=== PATIENT | male | born 1940 | race Caucasian/White ===

== ENCOUNTER 2016-08-28 11:13 | Inpatient (IN) | payer MEDICARE ==
[2016-08-28] VITALS (8 sets, daily range): BP systolic 108–134; BP diastolic 53–68; PULSE 77–100; RESP 16–20; TEMP 97.7; O2SAT 90–98
[~2016-08-28 11:13] MED LIST: BACT400T PO; BETH25 PO; CIPR-9 PO; HYDR-3533 PO; LEVE500 PO; MELAPOW2 PO; MONT10TA2 PO; NOVO7030P2 SQ; TAMS0.4C4 PO
--- NOTE | 2016-08-28 15:22 | PD ---
HPI Chief Complaint: Respiratory Symptoms Time Seen by Provider: 15:22 Travel History International Travel<30 days: No Contact w/Intl Traveler<30days: No Traveled to known affect area: No History of Present Illness HPI 76-year-old male with a history of A. fib, CABG, CVA, diabetes, kidney transplant presents to the emergency department for evaluation of bilateral lower extremity edema, wheezing and dysuria. The patient is accompanied by his and daughter who provide much of the history as the patient is a poor historian at baseline. Patient's states that the patient has had swelling of his ankles and feet bilaterally for 3 days as well as wheezing for 3 days. States that he took Lasix 2 days ago with no improvement of symptoms. States that he has had a mild nonproductive cough recently. Denies any fever, chills, nausea, vomiting, chest pain, shortness of breath, abdominal pain. States that he has recurrent urinary tract infections as well and has been off antibiotics for about 1.5 weeks. States that he's been having frequency, urgency and decreased urinary output over the past [address] Beasley. No other complaints. PFSH Past Medical History Hx Anticoagulant Therapy: No Arthritis: Yes Asthma: No Atrial Fibrillation: Yes Autoimmune Disease: Yes (shingles in the past) Blood Disorders: No Anxiety: No Depression: No Heart Rhythm Problems: Yes Cancer: Yes (SKIN ) Cardiac Catheterization: Yes Cardiovascular Problems: Yes (afib, no coumadin hx hemmorhagic cva) High Cholesterol: No Chemotherapy: No Chest Pain: No Congestive Heart Failure: Yes COPD: No Cerebrovascular Accident: Yes (cva 2013) Diabetes: Yes Patient Takes Glucophage: No Diminished Hearing: No Endocrine: Yes Gastrointestinal Disorders: Yes (diarrhea) GERD: No Genitourinary: Yes Headaches: No Hepatitis: No Hiatal Hernia: No Hypertension: Yes (not since transplant) Immune Disorder: No Kidney Stones: No Musculoskeletal: Yes Neurologic: Yes Psychiatric: No Reproductive: No Respiratory: Yes Immunizations Current: Yes Migraines: No Myocardial Infarction: No Radiation Therapy: No Renal Failure: Yes Seizures: Yes Sickle Cell Disease: No Sleep Apnea: No Ulcer: No PNEUMOCCOCAL Vaccine (Year): 3 Past Surgical History Abdominal Surgery: No AICD: No Appendectomy: No Body Medical Devices: penile implant Cardiac Surgery: Yes (CABG) Cholecystectomy: No Coronary Artery Bypass Graft: Yes (5WAY BYPASS 94') Coronary Stent: Yes (X1 98') Ear Surgery: No Endocrine Surgery: Yes (PARATHYROIDECTOMY) Eye Surgery: Yes Genitourinary Surgery: Yes (RENAL TRANSPLANT 1998) Gynecologic Surgery: No Insulin Pump: No Joint Replacement: No Neurologic Surgery: Yes (CRAINIOTOMY OCTOBER 2013) Oral Surgery: No Pacemaker: No Thoracic Surgery: No Other Surgery: Yes (renal transplant) Social History Alcohol Use: No Tobacco Use: No Substance Use: No Allergies-Medications (Allergen,Severity, Reaction): Coded Allergies: Haldol (Verified Allergy, Severe, Confusion, 08/28/16) Trileptal (Verified Allergy, Severe, 08/28/16) Reported Meds & Prescriptions Reported Meds & Active Scripts Active Tamsulosin (Tamsulosin HCl) 0.4 Mg Cap 0.4 Mg PO HS Urecholine (Bethanechol Chloride) 25 Mg Tab 25 Mg PO TID Reported Cranberry (Cranberry (Vaccinium Macrocarpon)) Unknown Strength Tab 1 Tab PO DAILY Zofran (Ondansetron HCl) 8 Mg Tab 8 Mg PO Q6HR PRN Lasix (Furosemide) 20 Mg Tab 20 Mg PO DAILY PRN Melatonin 10 Mg Tab 10 Mg PO HS Bactrim (Sulfamethoxazole-Trimethoprim) 400-80 Mg Tab 1 Tab PO DAILY Lortab (Hydrocodone-Acetaminophen) 5-325 Mg Tab 1 Tab PO QID PRN Novolin 70-30 Inj (Insulin Human Isoph/Insulin Regular) 1,000 Unit/10 Ml Vial SQ TIDAC Sliding scale as directed Keppra (Levetiracetam) 500 Mg Tab 500 Mg PO BID Singulair (Montelukast Sodium) 10 Mg Tab 10 Mg PO HS Review of Systems Except as stated in HPI: all other systems reviewed are Neg Physical Exam Narrative GENERAL: Well-nourished and well-developed pleasant male patient in no acute distress who is nontoxic appearing. SKIN: Warm and dry. HEAD: Normocephalic and atraumatic. EYES: No injection, drainage, or hyphema noted. PERRLA. EOMI. ENT: No nasal drainage noted. Oropharynx is clear. NECK: Supple and the trachea is midline. CARDIOVASCULAR: Regular rate and rhythm. RESPIRATORY: Wheezing to bilateral lung palencia throughout. No accessory muscle use, rhonchi, or crackles. GASTROINTESTINAL: Abdomen is soft, non-tender, and nondistended. MUSCULOSKELETAL: Mild edema to ankles and feet bilaterally. No obvious deformities, swelling, cyanosis, or ecchymosis is present throughout the upper and lower extremities. Patient has full range of motion without any signs of neurovascular compromise. NEUROLOGICAL: Awake, alert, and oriented to person, place and situation. Unsure of time. Normal speech and gait. Cranial nerves are grossly intact. Data Data Last Documented VS Vital Signs Date Time Temp Pulse Resp B/P Pulse Ox O2 Delivery O2 Flow Rate FiO2 08/28/16 15:08 87 16 134/64 95 Room Air 08/28/16 11:16 97.7 Orders Complete Blood Count With Diff (08/28/16 15:19) Comprehensive Metabolic Panel (08/28/16 15:19) B-Type Natriuretic Peptide (08/28/16 15:19) Act Partial Throm Time (Ptt) (08/28/16 15:19) Prothrombin Time / Inr (Pt) (08/28/16 15:19) Magnesium (Mg) (08/28/16 15:19) Ckmb (Isoenzyme) Profile (08/28/16 15:19) Troponin I (08/28/16 15:19) Urinalysis - C+S If Indicated (08/28/16 15:19) Iv Access Insert/Monitor (08/28/16 15:19) Electrocardiogram (08/28/16 15:19) Ecg Monitoring (08/28/16 15:19) Oximetry (08/28/16 15:19) Chest, Single Ap (08/28/16 15:19) Sodium Chloride 0.9% Flush (Ns Flush) (08/28/16 15:30) Levofloxacin (Levaquin) (08/28/16 16:45) Albuterol Neb (Albuterol Neb) (08/28/16 16:45) Urine Culture (08/28/16 16:33) CKMB (08/28/16 15:37) CKMB% (08/28/16 15:37) Phosphorus (Po4) (08/28/16 16:37) Calcium Gluconate Inj (Calcium Gluconate (08/28/16 16:45) Parathyroid Hormone Intact (08/28/16 16:39) Vitamin D, 25-Hydroxy (08/28/16 16:39) Bethanechol (Urecholine) (08/29/16 09:00) Furosemide (Lasix) (08/28/16 18:15) Levetiracetam (Keppra) (08/28/16 21:00) Montelukast (Singulair) (08/28/16 21:00) Tamsulosin (Flomax) (08/28/16 21:00) (Nf) Melatonin (08/28/16 21:00) Sulfameth-Trimeth 400-80 Mg (Bactrim 400 (08/29/16 09:00) Admit Order (Ed Use Only) (08/28/16 18:04) Labs Laboratory Tests Test 08/28/16 15:37 White Blood Count 7.1 TH/MM3 Red Blood Count 5.43 MIL/MM3 Hemoglobin 14.6 GM/DL Hematocrit 45.5 % Mean Corpuscular Volume 83.9 FL Mean Corpuscular Hemoglobin 27.0 PG Mean Corpuscular Hemoglobin 32.1 % Concent Red Cell Distribution Width 15.5 % Platelet Count 118 TH/MM3 Mean Platelet Volume 9.3 FL Neutrophils (%) (Auto) 66.7 % Lymphocytes (%) (Auto) 14.2 % Monocytes (%) (Auto) 16.6 % Eosinophils (%) (Auto) 1.8 % Basophils (%) (Auto) 0.7 % Neutrophils # (Auto) 4.7 TH/MM3 Lymphocytes # (Auto) 1.0 TH/MM3 Monocytes # (Auto) 1.2 TH/MM3 Eosinophils # (Auto) 0.1 TH/MM3 Basophils # (Auto) 0.1 TH/MM3 CBC Comment DIFF FINAL Differential Comment Prothrombin Time 12.4 SEC Prothromb Time International 1.1 RATIO Ratio Activated Partial 33.9 SEC Thromboplast Time Urine Color YELLOW Urine Turbidity CLEAR Urine pH 5.5 Urine Specific [place] 1.021 Urine Protein 30 mg/dL Urine Glucose (UA) TRACE mg/dL Urine Ketones NEG mg/dL Urine Occult Blood NEG Urine Nitrite NEG Urine Bilirubin NEG Urine Urobilinogen LESS THAN 2.0 MG/DL Urine Leukocyte Esterase TRACE Urine RBC 1 /hpf Urine WBC 6 /hpf Urine Squamous Epithelial <1 /hpf Cells Microscopic Urinalysis Comment CULT NOT INDICATED Sodium Level 142 MEQ/L Potassium Level 4.2 MEQ/L Chloride Level 103 MEQ/L Carbon Dioxide Level 29.2 MEQ/L Anion Gap 10 MEQ/L Blood Urea Nitrogen 17 MG/DL Creatinine 1.21 MG/DL Estimat Glomerular Filtration 58 ML/MIN Rate Random Glucose 163 MG/DL Calcium Level 6.1 MG/DL Protein Corrected Calcium 6.4 MG/DL Phosphorus Level 4.0 MG/DL Magnesium Level 1.8 MG/DL Total Bilirubin 1.0 MG/DL Aspartate Amino Transf 18 U/L (AST/SGOT) Alanine Aminotransferase 17 U/L (ALT/SGPT) Alkaline Phosphatase 120 U/L Total Creatine Kinase 196 U/L Creatine Kinase MB 1.7 NG/ML Troponin I 0.02 NG/ML B-Type Natriuretic Peptide 205 PG/ML Total Protein 6.4 GM/DL Albumin 3.1 GM/DL 25-Hydroxy Vitamin D Total 5.6 ng/ML [facility] Medical Decision Making Medical Screen Exam Complete: Yes Emergency Medical Condition: Yes Differential Diagnosis CHF exacerbation versus pneumonia versus bronchitis versus fluid overload versus UTI Narrative Course 76-year-old male presents to the emergency department for evaluation of lower extremity swelling, wheezing and dysuria. Patient is afebrile. Initially his oxygen saturation is a little low at 92% on room air. Now 95% on room air. Otherwise vital signs within normal limits. On physical examination he does have some wheezing to bilateral lung palencia. No respiratory distress. IV access is obtained, labs were drawn and sent. Patient is placed on cardiac telemetry and oximetry monitoring. EKG shows atrial fibrillation with prolonged QT interval greater than 450. CBC is unremarkable. CMP shows a critically low potassium of 6.4. Troponin is 0.02. BNP is 205. Vitamin D is low at 5.6. Patient is given IV calcium gluconate 1 g and nebulizers. He reports great improvement of wheezing with nebulizers. He has also been given a dose of Levaquin 750 mg orally for pneumonia. Patient will be kept in observation for hypocalcemia with EKG changes. I discussed the case with my attending physician Dr. Sage who is aware of the patients history, physical examination findings, and treatment plan. Physician Communication Physician Communication I spoke with Dr. Fowler [facility] who agrees to keep the patient in observation under his service. Diagnosis Primary Impression: Hypocalcemia Additional Impression: Community acquired pneumonia Admitting Information Admitting Physician Requests: Observation Gia Yusuf Aug 28, 2016 15:22
[2016-08-28] MEDS ORDERED: SODIUM CHLORIDE 0.9% FLUSH 10 ML FLUSH IVF PRN (15:30)
[2016-08-28] MEDS ORDERED: CRAN125T PO (15:31)
[2016-08-28] MEDS ORDERED: MELA1TAB18 PO (15:31)
[2016-08-28] MEDS ORDERED: ZOFR8TAB PO (15:31)
[2016-08-28] MEDS ORDERED: FURO1TAB62 PO (15:31)
[2016-08-28 15:50] LABS: AUTOMATED NEUTROPHIL # 4.7 TH/MM3 (1.8-7.7); BASOPHIL # 0.1 TH/MM3 (0-0.2); BASOPHIL % 0.7 % (0.0-2.0); EOSINOPHIL # 0.1 TH/MM3 (0-0.4); EOSINOPHIL % 1.8 % (0.0-4.0); HEMATOCRIT 45.5 % (39.0-51.0); HEMO FLAGS DIFF FINAL; LYMPH % 14.2 % (9.0-44.0); MEAN CELL VOLUME 83.9 FL (80.0-100.0); MEAN CORPUSCULAR HGB CONC 32.1 % (32.0-36.0); MONO % 16.6 % (0.0-8.0); NEUT % 66.7 % (16.0-70.0); PLATELET COUNT 118 TH/MM3 (150-450); RED BLOOD COUNT 5.43 MIL/MM3 (4.50-5.90); RED CELL DISTRIBUTION WIDTH 15.5 % (11.6-17.2); WHITE BLOOD COUNT 7.1 TH/MM3 (4.0-11.0)
[2016-08-28 15:57] LABS: BLOOD, URINE NEG (NEG); COMMENT (UR) CULT NOT INDICATED; CULTURE IF INDICATED CULT NOT INDICATED; GLUCOSE,URINE TRACE mg/dL (NEG); KETONE, URINE NEG (NEG); NITRITE,URINE NEG (NEG); PH, URINE 5.5 (5.0-8.5); SQUAMOUS EPITHELIAL CELL URINE <1 /hpf (0-5); URINE COLOR YELLOW (YELLW/STRAW)
[2016-08-28 16:14] LABS: APTT (PATIENT) 33.9 SEC (24.3-30.1); INTERNATIONAL NORMALIZED RATIO 1.1 RATIO; PROTHROMBIN TIME - PATIENT 12.4 SEC (9.8-11.6)
[2016-08-28 16:23] LABS: ALKALINE PHOSPHATASE 120 U/L (45-117); ALT (GPT) 17 U/L (12-78); ANION GAP 10 MEQ/L (5-15); AST (GOT) 18 U/L (15-37); BICARBONATE 29.2 MEQ/L (21.0-32.0); BLOOD UREA NITROGEN 17 MG/DL (7-18); CHLORIDE 103 MEQ/L (98-107); CREATINE KINASE 196 U/L (39-308); GLOMERULAR FILTRATION RATE 58 ML/MIN (>89); MAGNESIUM 1.8 MG/DL (1.5-2.5); POTASSIUM 4.2 MEQ/L (3.5-5.1); SODIUM (NA) 142 MEQ/L (136-145)
--- NOTE | 2016-08-28 16:29 | RADRPT ---
EXAM DATE/TIME: 08/28/2016 15:22 [place] COMPARISON: CHEST SINGLE AP, May 30, 2016, 15:43. INDICATIONS : Shortness of breath, congestion, wheezing, increased confusion, lower extremity swelling. MEDICAL HISTORY : Stroke. Diabetes mellitus type II. Atrial Fibrillation, Meningioma SURGICAL HISTORY : CABG. Parathyroid, Craniotomy, Kidney Transplant ENCOUNTER: Initial ACUITY: 3 days PAIN SCORE: 0/10 LOCATION: Bilateral chest FINDINGS: The cardiac silhouette is normal in transverse diameter. Median sternotomy wires are present. There i s left lower lobe atelectasis versus pneumonia. The right lung is free of acute parenchymal opacity. CONCLUSION: 1. Cardiomegaly. 2. Left lower lobe atelectasis versus pneumonia. Trip Sepulveda MD on August 28, 2016 at 16:26 Board Certified Radiologist. This report was verified electronically.
[2016-08-28 16:34] LABS: CALCIUM-PROTEIN CORRECTED 6.4 MG/DL (8.5-10.1)
[2016-08-28] MEDS ORDERED: LEVOFLOXACIN 750 MG TAB PO ONE (16:45)
[2016-08-28] MEDS ORDERED: CALCIUM GLUCONATE INJ 1 GM in DEXTROSE 5% IN WATER 100ML INJ 100 ML IV ONE ×2 (16:45)
[2016-08-28] MEDS: RESP: ALBUTEROL 2.5 MG/3 ML NEB (SCH) INH ×2 (16:48→16:49)
[2016-08-28 17:18] LABS: CKMB 1.7 NG/ML (0.5-3.6)
--- NOTE | 2016-08-28 17:58 | PD ---
Data Data Last Documented VS Vital Signs Date Time Temp Pulse Resp B/P Pulse Ox O2 Delivery O2 Flow Rate FiO2 08/28/16 15:08 87 16 134/64 95 Room Air 08/28/16 11:16 97.7 Orders Complete Blood Count With Diff (08/28/16 15:19) Comprehensive Metabolic Panel (08/28/16 15:19) B-Type Natriuretic Peptide (08/28/16 15:19) Act Partial Throm Time (Ptt) (08/28/16 15:19) Prothrombin Time / Inr (Pt) (08/28/16 15:19) Magnesium (Mg) (08/28/16 15:19) Ckmb (Isoenzyme) Profile (08/28/16 15:19) Troponin I (08/28/16 15:19) Urinalysis - C+S If Indicated (08/28/16 15:19) Iv Access Insert/Monitor (08/28/16 15:19) Electrocardiogram (08/28/16 15:19) Ecg Monitoring (08/28/16 15:19) Oximetry (08/28/16 15:19) Chest, Single Ap (08/28/16 15:19) Sodium Chloride 0.9% Flush (Ns Flush) (08/28/16 15:30) Levofloxacin (Levaquin) (08/28/16 16:45) Albuterol Neb (Albuterol Neb) (08/28/16 16:45) Urine Culture (08/28/16 16:33) CKMB (08/28/16 15:37) CKMB% (08/28/16 15:37) Phosphorus (Po4) (08/28/16 16:37) Calcium Gluconate Inj (Calcium Gluconate (08/28/16 16:45) Parathyroid Hormone Intact (08/28/16 16:39) Vitamin D, 25-Hydroxy (08/28/16 16:39) Labs Laboratory Tests Test 08/28/16 15:37 White Blood Count 7.1 TH/MM3 Red Blood Count 5.43 MIL/MM3 Hemoglobin 14.6 GM/DL Hematocrit 45.5 % Mean Corpuscular Volume 83.9 FL Mean Corpuscular Hemoglobin 27.0 PG Mean Corpuscular Hemoglobin 32.1 % Concent Red Cell Distribution Width 15.5 % Platelet Count 118 TH/MM3 Mean Platelet Volume 9.3 FL Neutrophils (%) (Auto) 66.7 % Lymphocytes (%) (Auto) 14.2 % Monocytes (%) (Auto) 16.6 % Eosinophils (%) (Auto) 1.8 % Basophils (%) (Auto) 0.7 % Neutrophils # (Auto) 4.7 TH/MM3 Lymphocytes # (Auto) 1.0 TH/MM3 Monocytes # (Auto) 1.2 TH/MM3 Eosinophils # (Auto) 0.1 TH/MM3 Basophils # (Auto) 0.1 TH/MM3 CBC Comment DIFF FINAL Differential Comment Prothrombin Time 12.4 SEC Prothromb Time International 1.1 RATIO Ratio Activated Partial 33.9 SEC Thromboplast Time Urine Color YELLOW Urine Turbidity CLEAR Urine pH 5.5 Urine Specific [place] 1.021 Urine Protein 30 mg/dL Urine Glucose (UA) TRACE mg/dL Urine Ketones NEG mg/dL Urine Occult Blood NEG Urine Nitrite NEG Urine Bilirubin NEG Urine Urobilinogen LESS THAN 2.0 MG/DL Urine Leukocyte Esterase TRACE Urine RBC 1 /hpf Urine WBC 6 /hpf Urine Squamous Epithelial <1 /hpf Cells Microscopic Urinalysis Comment CULT NOT INDICATED Sodium Level 142 MEQ/L Potassium Level 4.2 MEQ/L Chloride Level 103 MEQ/L Carbon Dioxide Level 29.2 MEQ/L Anion Gap 10 MEQ/L Blood Urea Nitrogen 17 MG/DL Creatinine 1.21 MG/DL Estimat Glomerular Filtration 58 ML/MIN Rate Random Glucose 163 MG/DL Calcium Level 6.1 MG/DL Protein Corrected Calcium 6.4 MG/DL Phosphorus Level 4.0 MG/DL Magnesium Level 1.8 MG/DL Total Bilirubin 1.0 MG/DL Aspartate Amino Transf 18 U/L (AST/SGOT) Alanine Aminotransferase 17 U/L (ALT/SGPT) Alkaline Phosphatase 120 U/L Total Creatine Kinase 196 U/L Creatine Kinase MB 1.7 NG/ML Troponin I 0.02 NG/ML B-Type Natriuretic Peptide 205 PG/ML Total Protein 6.4 GM/DL Albumin 3.1 GM/DL 25-Hydroxy Vitamin D Total 5.6 ng/ML MDM Supervised Visit with KHADIJAH: Yes Narrative Course The history, exam, and medical decision-making in the associated mid-level provider note were completed with my assistance. I reviewed and agree with the findings presented. I attest that I had a [id number] encounter with the patient on the same day, and personally performed and documented my assessment and findings in the medical record. *My assessment and Findings: Well 76 year-old man presents emergency Department with wheezing, leg swelling, no weakness and confusion, and UTI symptoms. He's been treated for UTI recently. The leg swelling and wheezing skin over the past several days. They tried some Lasix but essentially the Lasix also causes increased confusion at times. Family states he needs a Lasix about once a year or so. He otherwise looks well. X-ray suggestive of some left lower lobe atelectasis or pneumonia could be explaining his wheezing. No fevers or chills. No white count. He also found a critically low calcium. QTC is prolonged greater than 450 on his EKG. Given the calcium is always, he was given IV calcium, will be admitted for observation. Efrain Sage MD Aug 28, 2016 17:58
[2016-08-28] MEDS: SODIUM CHLOR 0.9% 1000 ML INJ 1,000 ML IV SCH (18:07)
[2016-08-28] MEDS ORDERED: ONDANSETRON HCL 4 MG/2 ML VIAL IVP PRN (18:15)
[2016-08-28] MEDS ORDERED: METOCLOPRAMIDE HCL 10 MG/2 ML VIAL IV PUSH PRN (18:15)
[2016-08-28] MEDS ORDERED: ACETAMINOPHEN 325 MG TAB PO PRN (18:15)
[2016-08-28] MEDS ORDERED: NALOXONE HCL 0.4 MG/ML AMP IV PRN (18:15)
[2016-08-28] MEDS ORDERED: SODIUM CHLORIDE 0.9% FLUSH 10 ML FLUSH IV FLUSH PRN (18:15)
[2016-08-28] MEDS ORDERED: FUROSEMIDE 20 MG TAB PO PRN (18:15)
[2016-08-28] MEDS ORDERED: BISACODYL 10 MG SUPP PR PRN (18:15)
--- NOTE | 2016-08-28 18:45 | HHI.HP ---
HPI Service [facility] Primary Care Physician Luis Angel Beasley M.D. Admission Diagnosis Hypocalcemia, Pneumonia Diagnoses: Chief Complaint: Shortness of breath, wheezing, Swollen legs Travel History International Travel<30 Days: No Contact w/Intl Traveler <30 Da: No Traveled to Known Affected Are: No History of Present Illness Pt. is a pleasant 76 yo white male with PMHX of Afib, CVA, DM2, Kidney transplant, recurrent UTIs who came in to the hospital as advised by his assurance analyst secondary to wheezing and SOB. Patient states that he was started to have shortness of breath with wheezing about 3 days ago, with cough but it is nonproductive. He also started noticing to have increased edema bilateral lower extremities all the way to his waist. He started taking his Lasix. Patient also complains of increasing urge to urinate but unable to urinate, burning sensation after dribbling. Family members, also reported they started to notice increase in blood glucose whenever they checked the patient. He shortness of breath and wheezing has not improved. He went to his assurance analyst to have adjustments with his insulin secondary to uncontrolled blood sugars. However, family states the assurance analyst told him to go to the hospital to be evaluated because he appears to be with increased shortness of breath and wheezing. Patient and family members also reported that he has been having recurrent urinary tract infections. He has been placed by PCP Dr. Vang on prophylactic Bactrim daily since about 2-3 years ago. However in the last 6 months due to urinary tract infection has been recurrent that they have to add either Cipro, Macrobid, Ceftin with his Bactrim. After being off of second antibiotic, patient would start to complain of dysuria, urgency. He is due to be seen by his urologist Dr. Lee. Otherwise, denies pain and discomfort. Denies SOB/ dyspnea. Denies chest pain, palpitations, headaches, dizziness. Denies fevers, chills, n/v/d. Chest x-ray showed 1. Cardiomegaly. 2. Left lower lobe atelectasis versus pneumonia. Labs reviewed. CBC unremarkable except low platelet 118, CMP showed estimated GFR 58, random glucose 163, low calcium 6.1, corrected calcium 6.4, albumin 3.1. BNP 205. Vitamin D5.6 PTH intact 31.8 UA trace leukoesterase Patient received levo floxacillin IV, albuterol treatment, calcium gluconate, Review of Systems Except as stated in HPI: all other systems reviewed are Neg Past Family Social History Past Medical History A. fib not on any anticoagulant secondary to hemorrhagic stroke in 2012 CVA 2012 DM 2 Kidney transplant Skin cancer Past Surgical History Cardiac stents CABG Kidney transplant Parathyroidectomy Craniotomy Penile implant Eye surgery Reported Medications Tamsulosin (Tamsulosin HCl) 0.4 Mg Cap 0.4 Mg PO HS Urecholine (Bethanechol Chloride) 25 Mg Tab 25 Mg PO TID Reported Cranberry (Cranberry (Vaccinium Macrocarpon)) Unknown Strength Tab 1 Tab PO DAILY Zofran (Ondansetron HCl) 8 Mg Tab 8 Mg PO Q6HR PRN Lasix (Furosemide) 20 Mg Tab 20 Mg PO DAILY PRN Melatonin 10 Mg Tab 10 Mg PO HS Bactrim (Sulfamethoxazole-Trimethoprim) 400-80 Mg Tab 1 Tab PO DAILY Lortab (Hydrocodone-Acetaminophen) 5-325 Mg Tab 1 Tab PO QID PRN Novolin 70-30 Inj (Insulin Human Isoph/Insulin Regular) 1,000 Unit/10 Ml Vial SQ TIDAC Sliding scale as directed Keppra (Levetiracetam) 500 Mg Tab 500 Mg PO BID Singulair (Montelukast Sodium) 10 Mg Tab 10 Mg PO HS Allergies: Coded Allergies: Haldol (Verified Allergy, Severe, Confusion, 08/28/16) Trileptal (Verified Allergy, Severe, 08/28/16) Active Ordered Medications Current Medications Medications (Trade) Dose Ordered Sig/Tj Route Start Time Stop Time Status Last Admin (Urecholine) 25 mg TID PO 08/29/16 09:00 (Lasix) 20 mg DAILY PRN PO 08/28/16 18:15 (Keppra) 500 mg BID PO 08/28/16 21:00 (Singulair) 10 mg HS PO 08/28/16 21:00 (Flomax) 0.4 mg HS PO 08/28/16 21:00 (Melatonin) 10 mg HS PO 08/28/16 21:00 Trimethoprim/ Sulfamethoxazole 1 tab 1 tab DAILY PO 08/29/16 09:00 Ceftriaxone Sodium 1000 mg/ Sodium Chloride 100 ml @ 200 mls/hr Q24H IV 08/29/16 09:00 Azithromycin 500 mg/Sodium Chloride 250 ml @ 250 mls/hr Q24H IV 08/28/16 20:00 (NS 1000 ml Inj) 1,000 ml @ 83 mls/hr Q12H3M IV 08/28/16 18:07 (NS Flush) 2 ml UNSCH PRN IV FLUSH 08/28/16 18:15 (NS Flush) 2 ml BID IV FLUSH 08/28/16 21:00 (Tylenol) 650 mg Q4H PRN PO 08/28/16 18:15 (Zofran Inj) 4 mg Q6H PRN IVP 08/28/16 18:15 (Reglan Inj) 5 mg Q6H PRN IV PUSH 08/28/16 18:15 (Dulcolax Supp) 10 mg DAILY PRN CO 08/28/16 18:15 (Colace) 100 mg Q12H PO 08/28/16 21:00 (Narcan Inj) 0.4 mg UNSCH PRN IV 08/28/16 18:15 Family History Grand mother with diabetes Mother has hypertension Father has no significant medical history Social History Denies alcohol use Denies tobacco use Denies illicit drug use Physical Exam Vital Signs Vital Signs Date Time Temp Pulse Resp B/P Pulse Ox O2 Delivery O2 Flow Rate FiO2 08/28/16 15:08 87 16 134/64 95 Room Air 08/28/16 11:16 97.7 77 16 131/68 92 Room Air Physical Exam GENERAL: This is a pleasant, well-nourished, well-developed patient, in no apparent distress. SKIN: No ecchymoses or lesions. Warm and dry. Multiple abdominal rash dry. HEAD: Atraumatic. Normocephalic. No temporal or scalp tenderness. EYES: Pupils equal round and reactive. Extraocular motions intact. No scleral icterus. No injection or drainage. ENT: Nose without bleeding. Throat without erythema. Uvula midline. Airway patent. NECK: Trachea midline. No JVD or lymphadenopathy. Supple. CARDIOVASCULAR: Irregular rate and rhythm, gallops, or rubs. RESPIRATORY: Expiratory wheezes all throughout. Moderate air entry. GASTROINTESTINAL: Abdomen soft, non-tender, nondistended. Bowel sounds active 4. MUSCULOSKELETAL: Extremities without clubbing, cyanosis, bilateral lower extremity +2. Dependent edema +2 flank, +2 thighs NEUROLOGICAL: Awake and alert. Motor and sensory grossly within normal limits. Normal speech. Laboratory Laboratory Tests Test 08/28/16 08/28/16 15:37 17:00 White Blood Count 7.1 Red Blood Count 5.43 Hemoglobin 14.6 Hematocrit 45.5 Mean Corpuscular Volume 83.9 Mean Corpuscular Hemoglobin 27.0 Mean Corpuscular Hemoglobin 32.1 Concent Red Cell Distribution Width 15.5 Platelet Count 118 Mean Platelet Volume 9.3 Neutrophils (%) (Auto) 66.7 Lymphocytes (%) (Auto) 14.2 Monocytes (%) (Auto) 16.6 Eosinophils (%) (Auto) 1.8 Basophils (%) (Auto) 0.7 Neutrophils # (Auto) 4.7 Lymphocytes # (Auto) 1.0 Monocytes # (Auto) 1.2 Eosinophils # (Auto) 0.1 Basophils # (Auto) 0.1 CBC Comment DIFF FINAL Differential Comment Prothrombin Time 12.4 Prothromb Time International 1.1 Ratio Activated Partial 33.9 Thromboplast Time Urine Color YELLOW Urine Turbidity CLEAR Urine pH 5.5 Urine Specific [place] 1.021 Urine Protein 30 Urine Glucose (UA) TRACE Urine Ketones NEG Urine Occult Blood NEG Urine Nitrite NEG Urine Bilirubin NEG Urine Urobilinogen LESS THAN 2.0 Urine Leukocyte Esterase TRACE Urine RBC 1 Urine WBC 6 Urine Squamous Epithelial <1 Cells Microscopic Urinalysis Comment CULT NOT INDICATED Sodium Level 142 Potassium Level 4.2 Chloride Level 103 Carbon Dioxide Level 29.2 Anion Gap 10 Blood Urea Nitrogen 17 Creatinine 1.21 Estimat Glomerular Filtration 58 Rate Random Glucose 163 Calcium Level 6.1 Protein Corrected Calcium 6.4 Phosphorus Level 4.0 Magnesium Level 1.8 Total Bilirubin 1.0 Aspartate Amino Transf 18 (AST/SGOT) Alanine Aminotransferase 17 (ALT/SGPT) Alkaline Phosphatase 120 Total Creatine Kinase 196 Creatine Kinase MB 1.7 Troponin I 0.02 B-Type Natriuretic Peptide 205 Total Protein 6.4 Albumin 3.1 25-Hydroxy Vitamin D Total 5.6 Parathyroid Hormone (Intact) 31.8 Date/Time Procedure Status Source Growth 08/28/16 15:37 Urine Culture Received Urine Clean Catch Pending Result Diagram: 08/28/16 1537 08/28/16 1537 Imaging Last Impressions Chest X-Ray 08/28/16 1519 Signed Impressions: Service Date/Time: Sunday, August 28, 2016 15:22 - CONCLUSION: 1. Cardiomegaly. 2. Left lower lobe atelectasis versus pneumonia. Trip Sepulveda MD Assessment and Plan Problem List: (1) Seizures ICD Code: R56.9 Status: Chronic (2) Hx of kidney transplant ICD Code: Z94.0 Status: Chronic (3) DEJA (acute kidney injury) ICD Code: N17.9 Status: Acute (4) DM2 (diabetes mellitus, type 2) ICD Code: E11.9 Status: Chronic (5) Recurrent UTI ICD Code: N39.0 Status: Acute (6) Pneumonia ICD Code: J18.9 Status: Acute (7) A-fib ICD Code: I48.91 Status: Chronic (8) Community acquired pneumonia ICD Code: J18.9 Status: Acute Assessment and Plan Pt. is a pleasant 76 yo white male with PMHX of Afib, CVA, DM2, Kidney transplant, recurrent UTIs who came in to the hospital as advised by his assurance analyst secondary to wheezing and SOB. Patient states that he was started to have shortness of breath with wheezing about 3 days ago, with cough but it is nonproductive. He also started noticing to have increased edema bilateral lower extremities all the way to his waist. He started taking his Lasix. Patient also complains of increasing urge to urinate, burning sensation after urination. Reports recurrent urinary tract infection, he was on prophylactic Bactrim daily for 2-3 years, last 6 months PCP needed to add Cipro , Macrobid, Ceftin with his Bactrim for recurrent urinary tract infection. Community acquired pneumonia, possible S. pneumonia - Was given Levaquin IV. We'll switch over to ceftriaxone 1 g every 24, azithromycin 500 mg every 24 - DuoNeb's every 6 hours scheduled, and when necessary - Monitor respiratory status Recurrent urinary tract infection, acute on chronic - Continue prophylactic Bactrim daily - UA trace leukoesterase - On ceftriaxone IV - We'll consult urology Chronic kidney disease Poor urine output - History of kidney transplant - Creatinine 1.21, EGFR 58 - Monitor BMP - US kidney and bladder Bilateral lower extremity edema, dependent edema - Bilateral lower extremity ultrasound - Monitor BMP A. fib - not on any anticoagulants patient has hemorrhagic bleed in 2012 and has not been restarted on any anticoagulation - Monitor heart rate Hypocalcemia - History of parathyroidectomy - Calcium gluconate given - Patient on calcium supplements at home 1200 mg daily, restart supplement. - Monitor calcium levels DM 2 - Home medications 7030 twice a day sliding scale. Will switch over to NovoLog sliding scale for now - Will add Levemir if necessary - Check hemoglobin A1c - Monitor for hypo-glycemia. As per family members, patient doesn't do well with blood glucose less than 200 CVA, hemorrhagic bleed, craniotomy Seizure prophylaxis - Keppra 500 mg twice a day - Seizure precaution DVT prop Written by Mami Paez, on behalf of Dr. Reddy on 08/28/16 at 19:19. Patient seen in the presence of Miss Paez also discussed with patient, his and his daughter, agree with management Code Status Full code Discussed Condition With Patient, family members, nursing, ED attending Physician Certification 2 Midnight Certification Type: Admission for Inpatient Services Order for Inpatient Services The services are ordered in accordance with Medicare regulations or non- Medicare payer requirements, as applicable. In the case of services not specified as inpatient-only, they are appropriately provided as inpatient services in accordance with the 2-midnight benchmark. Estimated LOS (days): 2 days is the estimated time the patient will need to remain in the hospital, assuming treatment plan goals are met and no additional complications. Post-Hospital Plan: Not yet determined Mami Salmeron Aug 28, 2016 18:45 Mateo Ridley MD Aug 29, 2016 07:42
[2016-08-28 19:29] LABS: FREE T4 1.14 NG/DL (0.76-1.46); LDL CHOLESTEROL 89 MG/DL (0-99)
[2016-08-28] MEDS: RESP: ALBUTEROL 2.5 MG/IPRATROPIUM 0.5 MG NEB (SCH) NEB (19:43)
[2016-08-28] MEDS ORDERED: RESP: ALBUTEROL 2.5 MG/IPRATROPIUM 0.5 MG NEB (PRN) NEB (19:45)
[2016-08-28] MEDS: AZITHROMYCIN INJ 500 MG in SODIUM CHLOR 0.9% 250 ML INJ 250 ML IV SCH (20:38)
[2016-08-28] MEDS: TAMSULOSIN HCL 0.4 MG CAP PO SCH (21:00)
[2016-08-28] MEDS: SODIUM CHLORIDE 0.9% FLUSH 10 ML FLUSH IV FLUSH SCH (21:00)
[2016-08-28] MEDS: MONTELUKAST SODIUM 10 MG TAB PO SCH (21:00)
[2016-08-28] MEDS: DOCUSATE SODIUM 100 MG CAP PO SCH (21:00)
--- NOTE | 2016-08-28 21:10 | RADRPT ---
EXAM DATE/TIME: 08/28/2016 20:03 [facility] COMPARISON: No previous studies available for comparison. INDICATIONS : Bilateral leg edema. MEDICAL HISTORY : Congestive heart failure. Osteoarthritis. Osteoporosis. CAD. Bilateral eye neuropathy. CVA. Seizures. Afib. Renal disease and failure. UTI. HTN. Gout. Diabetes. Jaundice. Shingles. Basal cell carcinoma, head. Hay fever. SURGICAL HISTORY : Craniotomy.CABG Coronary artery stent.Bilateral cataract extraction. Cardiac cath. Penile implant. Re nal transplant RLQ. Parathyroidectomy. Blood transfusions. Excisioin skin lesion, head. ENCOUNTER: Initial ACUITY: 1 week PAIN SCORE: 0/10 LOCATION: Bilateral leg. TECHNIQUE: Venous ultrasound of the left and right leg was performed from the inguinal ligament to the proximal calf. Real-time, color Doppler and spectral tracing, compression and augmentation techniques were us ed. FINDINGS: RIGHT LEG: There is normal compressibility of the deep venous system from the inguinal region to the proximal ca lf. No echogenic clot is seen in the lumen of the common femoral, femoral, popliteal, and posterior tibial veins. There is a normal response of the venous system to proximal and distal augmentation an d respiration. LEFT LEG: There is normal compressibility of the deep venous system from the inguinal region to the proximal ca lf. No echogenic clot is seen in the lumen of the common femoral, femoral, popliteal, and posterior tibial veins. There is a normal response of the venous system to proximal and distal augmentation an d respiration. CONCLUSION: No evidence of deep venous thrombosis within the lower extremities. Dario Downs MD on August 28, 2016 at 21:07 Board Certified Radiologist. This report was verified electronically.
--- NOTE | 2016-08-28 21:51 | RADRPT ---
EXAM DATE/TIME: 08/28/2016 19:43 [facility] COMPARISON: No previous studies available for comparison. INDICATIONS : Flank pain. MEDICAL HISTORY : Congestive heart failure. Osteoporosis. Osteoarthritis. CAD. Bilateral eye neuropathy. CVA. Seizures. Afib. Renal disease and failure. UTI. HTN. Gout. Diabetes. Jaundice. Shingles. Basal cell carcinoma, head. Hay fever. SURGICAL HISTORY : Craniotomy. CABG. Coronary artery stent. Bilateral cataract extraction. Cardiac cath. Penile implant. Renal transplant RLQ. Parathyroidectomy. Blood transfusions. Excision skin lesion, head. ENCOUNTER: Initial ACUITY: 1 day PAIN SCORE: 4/10 LOCATION: Bilateral flank MEASUREMENTS: RIGHT KIDNEY: 5.8 x 2.6 x 3.1 cm LEFT KIDNEY: 9.7 x 4.2 x 5.9 cm FINDINGS: The patient's [place] kidneys are small and increased in echogenicity. The right kidney is significan tly smaller than the left. The right lower quadrant transplanted kidney is normal in size and measur es 11.2 x 5.9 x 5.8 cm. There is no hydronephrosis or mass involving the transplanted kidney. No pe ri transplant fluid collection is noted. No stone is noted. The urinary bladder is unremarkable. CONCLUSION: 1. Right lower quadrant transplanted kidney is unremarkable. 2. Patient's [place] kidneys are small and echogenic consistent with renal failure. 3. Unremarkable urinary bladder. Dario Downs MD on August 28, 2016 at 21:44 Board Certified Radiologist. This report was verified electronically.
[2016-08-28] MEDS: MELATONIN 5 MG TAB PO SCH (22:10)
[2016-08-28] MEDS: levETIRAcetam 500 MG TAB PO SCH (22:11)
[2016-08-28 22:15] LABS: HEMOGLOBIN A1b 0.8 %; HEMOGLOBIN Ao 81.2 %; HEMOGLOBIN F 1.2 %; HEMOGLOBIN LA1C 2.3 %; HEMOGLOBIN P3 4.5 %
--- NOTE | 2016-08-28 22:27 | EKG ---
Date Performed: 08/28/2016 Time Performed: 16:27:06 PTAGE: 76 years EKG: ATRIAL FIBRILLATION MODERATE INTRAVENTRICULAR CONDUCTION DELAY ABNORMAL ECG PREVIOUS TRACING : 05/30/2016 15.04 Compared to prior tracing no significant change DOCTOR: Lelo Amaral Interpretating Date/Time 08/28/2016 22:25:33
[2016-08-29 00:25] VITALS: O2SAT 97
[2016-08-29 04:45] VITALS: BP 141/60; PULSE 79; RESP 20; TEMP 98.1; O2SAT 93
[2016-08-29] MEDS: SODIUM CHLOR 0.9% 1000 ML INJ 1,000 ML IV SCH ×2 (06:10→11:09)
[2016-08-29 06:19] LABS: AUTOMATED NEUTROPHIL # 3.6 TH/MM3 (1.8-7.7); BASOPHIL # 0.1 TH/MM3 (0-0.2); BASOPHIL % 1.1 % (0.0-2.0); EOSINOPHIL % 0.8 % (0.0-4.0); HEMATOCRIT 40.9 % (39.0-51.0); HEMO FLAGS DIFF FINAL; LYMPH % 13.4 % (9.0-44.0); LYMPHOCYTE # 0.7 TH/MM3 (1.0-4.8); MEAN CELL VOLUME 84.1 FL (80.0-100.0); MEAN CORPUSCULAR HEMOGLOBIN 27.1 PG (27.0-34.0); MEAN CORPUSCULAR HGB CONC 32.3 % (32.0-36.0); MONO % 16.2 % (0.0-8.0); NEUT % 68.5 % (16.0-70.0); PLATELET COUNT 104 TH/MM3 (150-450); RED BLOOD COUNT 4.87 MIL/MM3 (4.50-5.90); RED CELL DISTRIBUTION WIDTH 15.2 % (11.6-17.2); WHITE BLOOD COUNT 5.3 TH/MM3 (4.0-11.0)
[2016-08-29 06:20] LABS: INTERNATIONAL NORMALIZED RATIO 1.2 RATIO; PROTHROMBIN TIME - PATIENT 13.5 SEC (9.8-11.6)
[2016-08-29 06:43] LABS: BICARBONATE 28.6 MEQ/L (21.0-32.0); INDIRECT BILIRUBIN 0.6 MG/DL (0.0-0.8); POTASSIUM 4.7 MEQ/L (3.5-5.1); TOTAL BILIRUBIN ADULT 0.9 MG/DL (0.2-1.0)
[2016-08-29 06:51] LABS: CALCIUM-PROTEIN CORRECTED 6.9 MG/DL (8.5-10.1)
[2016-08-29] MEDS: RESP: ALBUTEROL 2.5 MG/IPRATROPIUM 0.5 MG NEB (SCH) NEB ×3 (07:29→21:41)
[2016-08-29 07:33] VITALS: O2SAT 97
[2016-08-29 07:52] VITALS: BP 115/64; PULSE 91; RESP 17; TEMP 97.6; O2SAT 92
[2016-08-29] MEDS: DOCUSATE SODIUM 100 MG CAP PO SCH ×2 (09:00→20:41)
[2016-08-29] MEDS: SODIUM CHLORIDE 0.9% FLUSH 10 ML FLUSH IV FLUSH SCH ×2 (09:00→20:42)
[2016-08-29] MEDS: SULFAMETHOXAZOLE-TRIMETHOPRIM 400-80 MG TAB PO SCH (11:06)
[2016-08-29] MEDS: levETIRAcetam 500 MG TAB PO SCH ×2 (11:06→20:41)
[2016-08-29] MEDS: BETHANECHOL CHL 25 MG TAB PO SCH ×3 (11:06→18:29)
[2016-08-29] MEDS: cefTRIAXone INJ 1,000 MG in SODIUM CHLORIDE 0.9% INJ 100 ML IV SCH (11:08)
--- NOTE | 2016-08-29 11:51 | HHI.PR ---
Subjective Remarks Pt. is a pleasant 76 yo white male with PMHX of Afib, CVA, DM2, Kidney transplant, recurrent UTIs who came in to the hospital as advised by his linoleum floor layer secondary to wheezing and SOB. Patient states that he was started to have shortness of breath with wheezing about 3 days ago, with cough but it is nonproductive. He also started noticing to have increased edema bilateral lower extremities all the way to his waist. He started taking his Lasix. Patient also complains of increasing urge to urinate but unable to urinate, burning sensation after dribbling. Family members, also reported they started to notice increase in blood glucose whenever they checked the patient. He shortness of breath and wheezing has not improved. He went to his linoleum floor layer to have adjustments with his insulin secondary to uncontrolled blood sugars. However, family states the linoleum floor layer told him to go to the hospital to be evaluated because he appears to be with increased shortness of breath and wheezing. Patient and family members also reported that he has been having recurrent urinary tract infections. He has been placed by PCP Dr. Vang on prophylactic Bactrim daily since about 2-3 years ago. However in the last 6 months due to urinary tract infection has been recurrent that they have to add either Cipro, Macrobid, Ceftin with his Bactrim. After being off of second antibiotic, patient would start to complain of dysuria, urgency. He is due to be seen by his urologist Dr. Lee. Otherwise, denies pain and discomfort. Denies SOB/ dyspnea. Denies chest pain, palpitations, headaches, dizziness. Denies fevers, chills, n/v/d. Chest x-ray showed 1. Cardiomegaly. 2. Left lower lobe atelectasis versus pneumonia. Labs reviewed. CBC unremarkable except low platelet 118, CMP showed estimated GFR 58, random glucose 163, low calcium 6.1, corrected calcium 6.4, albumin 3.1. BNP 205. Vitamin D5.6 PTH intact 31.8 UA trace leukocyte esterase Seen in the room in the presence of nurse Miss Clements and with his in the room, no new issues, he is sitting continue with swollen legs 2+, has PAD, may add low dose of Lasix but was discussed with patient and his in the room about the need to stop using Salt with his food. Objective Vital Signs Date Time Temp Pulse Resp B/P Pulse Ox O2 Delivery O2 Flow Rate FiO2 08/29/16 07:52 97.6 91 17 115/64 92 08/29/16 07:33 97 21 08/29/16 04:45 98.1 79 20 141/60 93 08/29/16 00:25 97 08/28/16 23:43 97.7 87 20 110/62 90 08/28/16 22:59 95 Nasal Cannula 2.00 08/28/16 20:40 84 20 132/62 95 08/28/16 18:00 100 20 114/60 98 08/28/16 17:00 98 20 108/56 92 Room Air 08/28/16 16:00 96 20 109/53 93 Room Air 08/28/16 15:08 87 16 134/64 95 Room Air I/O 08/28/16 08/28/16 08/28/16 08/29/16 08/29/16 08/29/16 07:00 15:00 23:00 07:00 15:00 23:00 Output Total 300 ml 275 ml Balance -300 ml -275 ml Output Urine Total 300 ml 275 ml # Voids 1 Result Diagram: 08/29/16 0535 08/29/16 0535 Imaging Last Impressions Chest X-Ray 08/28/16 1519 Signed Impressions: Service Date/Time: Sunday, August 28, 2016 15:22 - CONCLUSION: 1. Cardiomegaly. 2. Left lower lobe atelectasis versus pneumonia. Trip Sepulveda MD Renal Ultrasound 08/28/16 0000 Signed Impressions: Service Date/Time: Sunday, August 28, 2016 19:43 - CONCLUSION: 1. Right lower quadrant transplanted kidney is unremarkable. 2. Patient's [place] kidneys are small and echogenic consistent with renal failure. 3. Unremarkable urinary bladder. Dario Downs MD Lower Extremity Ultrasound 08/28/16 0000 Signed Impressions: Service Date/Time: Sunday, August 28, 2016 20:03 - CONCLUSION: No evidence of deep venous thrombosis within the lower extremities. Dario Downs MD Procedures No procedures performed. Other Results Laboratory Tests Test 08/28/16 08/28/16 08/29/16 15:37 17:00 05:35 Activated Partial 33.9 SEC Thromboplast Time Urine Color YELLOW Urine Turbidity CLEAR Urine pH 5.5 Urine Specific [place] 1.021 Urine Protein 30 mg/dL Urine Glucose (UA) TRACE mg/dL Urine Ketones NEG mg/dL Urine Occult Blood NEG Urine Nitrite NEG Urine Bilirubin NEG Urine Urobilinogen LESS THAN 2.0 MG/DL Urine Leukocyte Esterase TRACE Urine RBC 1 /hpf Urine WBC 6 /hpf Urine Squamous Epithelial <1 /hpf Cells Microscopic Urinalysis Comment CULT NOT INDICATED Hemoglobin A1c 8.8 % Phosphorus Level 4.0 MG/DL Magnesium Level 1.8 MG/DL Total Creatine Kinase 196 U/L Creatine Kinase MB 1.7 NG/ML Troponin I 0.02 NG/ML B-Type Natriuretic Peptide 205 PG/ML Triglycerides Level 130 MG/DL Cholesterol Level 151 MG/DL LDL Cholesterol 89 MG/DL HDL Cholesterol 36.0 MG/DL Cholesterol/HDL Ratio 4.19 RATIO 25-Hydroxy Vitamin D Total 5.6 ng/ML Free Thyroxine 1.14 NG/DL Thyroid Stimulating Hormone 8.100 uIU/ML 3rd Gen Parathyroid Hormone (Intact) 31.8 PG/ML White Blood Count 5.3 TH/MM3 Red Blood Count 4.87 MIL/MM3 Hemoglobin 13.2 GM/DL Hematocrit 40.9 % Mean Corpuscular Volume 84.1 FL Mean Corpuscular Hemoglobin 27.1 PG Mean Corpuscular Hemoglobin 32.3 % Concent Red Cell Distribution Width 15.2 % Platelet Count 104 TH/MM3 Mean Platelet Volume 9.5 FL Neutrophils (%) (Auto) 68.5 % Lymphocytes (%) (Auto) 13.4 % Monocytes (%) (Auto) 16.2 % Eosinophils (%) (Auto) 0.8 % Basophils (%) (Auto) 1.1 % Neutrophils # (Auto) 3.6 TH/MM3 Lymphocytes # (Auto) 0.7 TH/MM3 Monocytes # (Auto) 0.9 TH/MM3 Eosinophils # (Auto) 0.0 TH/MM3 Basophils # (Auto) 0.1 TH/MM3 CBC Comment DIFF FINAL Differential Comment Prothrombin Time 13.5 SEC Prothromb Time International 1.2 RATIO Ratio Sodium Level 142 MEQ/L Potassium Level 4.7 MEQ/L Chloride Level 107 MEQ/L Carbon Dioxide Level 28.6 MEQ/L Anion Gap 6 MEQ/L Blood Urea Nitrogen 18 MG/DL Creatinine 1.25 MG/DL Estimat Glomerular Filtration 56 ML/MIN Rate Random Glucose 180 MG/DL Calcium Level 6.2 MG/DL Protein Corrected Calcium 6.9 MG/DL Total Bilirubin 0.9 MG/DL Direct Bilirubin 0.3 MG/DL Indirect Bilirubin 0.6 MG/DL Aspartate Amino Transf 15 U/L (AST/SGOT) Alanine Aminotransferase 14 U/L (ALT/SGPT) Alkaline Phosphatase 99 U/L Total Protein 5.5 GM/DL Albumin 2.7 GM/DL Lipase 90 U/L Objective Remarks GENERAL: This is a pleasant, well-nourished, well-developed patient, in no apparent distress. SKIN: No ecchymoses or lesions. Warm and dry. Multiple abdominal rash dry. HEAD: Atraumatic. Normocephalic. No temporal or scalp tenderness. EYES: Pupils equal round and reactive. Extraocular motions intact. No scleral icterus. No injection or drainage. ENT: Nose without bleeding. Throat without erythema. Uvula midline. Airway patent. NECK: Trachea midline. No JVD or lymphadenopathy. Supple. CARDIOVASCULAR: Irregular rate and rhythm, gallops, or rubs. RESPIRATORY: Expiratory wheezes all throughout. Moderate air entry. GASTROINTESTINAL: Abdomen soft, non-tender, nondistended. Bowel sounds active 4. MUSCULOSKELETAL: Extremities without clubbing, cyanosis, bilateral lower extremity +2. Dependent edema +2 flank, +2 thighs NEUROLOGICAL: Awake and alert. Motor and sensory grossly within normal limits. Normal speech. Medications and IVs Current Medications Medications (Trade) Dose Ordered Sig/Tj Route Start Time Stop Time Status Last Admin (Urecholine) 25 mg TID PO 08/29/16 09:00 08/29/16 11:06 (Lasix) 20 mg DAILY PRN PO 08/28/16 18:15 08/29/16 05:27 (Keppra) 500 mg BID PO 08/28/16 21:00 08/29/16 11:06 (Singulair) 10 mg HS PO 08/28/16 21:00 (Flomax) 0.4 mg HS PO 08/28/16 21:00 (Melatonin) 10 mg HS PO 08/28/16 21:00 08/28/16 22:10 Trimethoprim/ Sulfamethoxazole 1 tab 1 tab DAILY PO 08/29/16 09:00 08/29/16 11:06 Ceftriaxone Sodium 1000 mg/ Sodium Chloride 100 ml @ 200 mls/hr Q24H IV 08/29/16 09:00 08/29/16 11:08 Azithromycin 500 mg/Sodium Chloride 250 ml @ 250 mls/hr Q24H IV 08/28/16 20:00 08/28/16 20:38 (NS 1000 ml Inj) 1,000 ml @ 83 mls/hr Q12H3M IV 08/28/16 18:07 08/29/16 11:09 (NS Flush) 2 ml UNSCH PRN IV FLUSH 08/28/16 18:15 (NS Flush) 2 ml BID IV FLUSH 08/28/16 21:00 08/29/16 09:00 (Tylenol) 650 mg Q4H PRN PO 08/28/16 18:15 (Zofran Inj) 4 mg Q6H PRN IVP 08/28/16 18:15 (Reglan Inj) 5 mg Q6H PRN IV PUSH 08/28/16 18:15 (Dulcolax Supp) 10 mg DAILY PRN GA 08/28/16 18:15 (Colace) 100 mg Q12H PO 08/28/16 21:00 (Narcan Inj) 0.4 mg UNSCH PRN IV 08/28/16 18:15 A/P Assessment and Plan Pt. is a pleasant 76 yo white male with PMHX of Afib, CVA, DM2, Kidney transplant, recurrent UTIs who came in to the hospital as advised by his linoleum floor layer secondary to wheezing and SOB. Patient states that he was started to have shortness of breath with wheezing about 3 days ago, with cough but it is nonproductive. He also started noticing to have increased edema bilateral lower extremities all the way to his waist. He started taking his Lasix. Patient also complains of increasing urge to urinate, burning sensation after urination. Reports recurrent urinary tract infection, he was on prophylactic Bactrim daily for 2-3 years, last 6 months PCP needed to add Cipro , Macrobid, Ceftin with his Bactrim for recurrent urinary tract infection. Community acquired pneumonia, possible S. pneumonia - Was given Levaquin IV. We'll switch over to ceftriaxone 1 g every 24, azithromycin 500 mg every 24 - Bronchodilator, Mucolytic and incentive spirometry. - Monitor respiratory status Recurrent urinary tract infection, acute on chronic - Continue prophylactic Bactrim daily - UA trace leukoesterase - On ceftriaxone IV - Awaiting Urology specialist consult. Chronic kidney disease status post Kidney transplant. Poor urine output - History of kidney transplant - Creatinine 1.25 - Monitor BMP - US kidney and bladder did not found pathology Bilateral lower extremity edema, dependent edema - Bilateral lower extremity ultrasound negative for DVT - probable PAD A. fib - not on any anticoagulants patient has hemorrhagic bleed in 2012 and has not been restarted on any anticoagulation - Monitor heart rate Hypocalcemia - History of parathyroidectomy - Calcium gluconate given again today - Patient on calcium supplements at home 1200 mg daily, restart supplement. - Monitor calcium levels DM 2 - Home medications 7030 twice a day sliding scale. Will switch over to NovoLog sliding scale for now - Added Levemir 10 units BID, Novolin scheduled with every meal. - Check hemoglobin A1C 8.8 poorly controlled DM II CVA, hemorrhagic bleed, craniotomy Seizure prophylaxis - Keppra 500 mg twice a day - Seizure precaution DVT prop early ambulation patient walking in the aisle with Physical Therapy. Code Status Full code Discussed Condition With Patient and his in the room all laboratory evaluated is difficult to improve his peripheral edema recommended to control his salt intake and added low dose of Lasix following. Discharge Planning Expected for tomorrow. Mateo Ridley MD Aug 29, 2016 11:50
[2016-08-29] MEDS ORDERED: CALCIUM GLUCONATE INJ 1 GM in DEXTROSE 5% IN WATER 100ML INJ 100 ML IV ONE ×2 (12:00)
[2016-08-29] MEDS: guaiFENesin E.R. 600 MG TAB PO SCH ×2 (15:39→20:41)
[2016-08-29 15:45] VITALS: BP 149/68; PULSE 96; RESP 17; TEMP 97.9; O2SAT 92
[2016-08-29] MEDS: INSULIN HUMAN REGULAR 1,000 UNITS/10 ML VIAL SQ SCH (18:30)
--- NOTE | 2016-08-29 18:31 | MB ---
cc: TIFF MELENDEZ DATE OF CONSULTATION: 08/29/2016 REASON FOR CONSULTATION: HISTORY OF PRESENT ILLNESS: Mr. Olson is a pleasant 76 year-old male with a history of kidney transplant. He has had recent recurrent urinary tract infections. In the past he was known to grow out Enterococcus and Pseudomonas. PAST MEDICAL HISTORY: Significant for: 1. A-fib. 2. CVA. 3. Diabetes, type 2. 4. Skin cancer. 5. Kidney transplant back in 1998. The son was his donor. 6. Prior history of skin cancer. According to the , she states that he has had increasing lower extremity edema after he was seen in the office last week by myself. He was given some Lasix and then later became confused. She stopped his [place] and states that he does have a weak strain with dribbling at night, gets up three to four times at night, and has incomplete emptying. He has been on multiple antibiotics. Presently he denies any shortness of breath, chest pain or palpitations, fever or chills. He had a renal bladder ultrasound during this admission which showed a normal kidney transplant, atrophic bilateral kidneys and normal bladder. ALLERGIES: HALDOL AND TRILEPTAL. PAST SURGICAL HISTORY: 1. Cardiac stents. 2. CABG. 3. Kidney transplant. 4. Parathyroidectomy. 5. Craniotomy. 6. Penile implant. 7. Eye surgery. FAMILY HISTORY: Notable for diabetes and hypertension. SOCIAL HISTORY: Denies any alcohol, tobacco or drugs. REVIEW OF SYSTEMS: A 12 point review of systems was taken and is negative per the HPI. PHYSICAL EXAMINATION: His present vital signs, temperature is 97.9, heart rate 96, respiratory rate 17. GENERAL: A well-developed, well-nourished 76 year-old male in no acute distress. HEENT:: Normocephalic, atraumatic. Pupils equal, round, and react to light. Neck: Supple. Heart: Regular rate and rhythm. Lungs: Clear. Abdomen: Soft, nontender, nondistended. : Penile edema is noted with a penile implant in place. Testes are descended. Extremities: Show 1 to 2+ edema. LABORATORY DATA: White count is normal at 5.3, hemoglobin 13.2, hematocrit 40.9, platelet count of 104, sodium 142, potassium 4.7, chloride 107, CO2 28.6. BUN 18, creatinine 1.2, glucose of 180. IMAGING STUDIES: Renal bladder ultrasound shows normal bladder, normal kidney transplant with bilateral atrophic kidneys. ASSESSMENT: The patient is a 76 year-old male with recurrent urinary tract infections, possibly secondary to outlet obstruction. Will resume Flomax in the hospital for now, 0.4 milligrams p.o. q hs. Will continue with Urecholine 25 milligrams t.i.d. After discharge, the patient will undergo cystoscopy in the office to further evaluate his prostate and determine if transurethral resection is necessary. Continue antibiotics to treat UTI and will check culture. Thank you for the consult and allowing me to participate in the care of this patient. Mariano CHU/YASMIN /4:47 PM /6:05 PM
[2016-08-29] MEDS: MONTELUKAST SODIUM 10 MG TAB PO SCH (20:41)
[2016-08-29] MEDS: AZITHROMYCIN INJ 500 MG in SODIUM CHLOR 0.9% 250 ML INJ 250 ML IV SCH (20:41)
[2016-08-29] MEDS: TAMSULOSIN HCL 0.4 MG CAP PO SCH (20:42)
[2016-08-29] MEDS: MELATONIN 5 MG TAB PO SCH (20:42)
[2016-08-29] MEDS: INSULIN DETEMIR 100 UNITS/ML VIAL SQ SCH (20:46)
[2016-08-30 01:16] VITALS: PULSE 97
[2016-08-30] MEDS: SODIUM CHLOR 0.9% 1000 ML INJ 1,000 ML IV SCH (03:45)
[2016-08-30 03:51] VITALS: BP 131/80; PULSE 89; RESP 18; TEMP 98.7; O2SAT 98
[2016-08-30 05:18] LABS: BICARBONATE 27.3 MEQ/L (21.0-32.0); POTASSIUM 4.3 MEQ/L (3.5-5.1)
[2016-08-30] MEDS ORDERED: CALCIUM GLUCONATE INJ 1 GM in SODIUM CHLORIDE 0.9% INJ 100 ML IV ONE ×2 (06:30→11:30)
[2016-08-30] MEDS: RESP: ALBUTEROL 2.5 MG/IPRATROPIUM 0.5 MG NEB (SCH) NEB ×2 (07:30→13:25)
[2016-08-30 07:32] VITALS: O2SAT 97
[2016-08-30] MEDS: INSULIN HUMAN REGULAR 1,000 UNITS/10 ML VIAL SQ SCH ×2 (08:00→08:16)
[2016-08-30] MEDS: levETIRAcetam 500 MG TAB PO SCH (08:15)
[2016-08-30] MEDS: cefTRIAXone INJ 1,000 MG in SODIUM CHLORIDE 0.9% INJ 100 ML IV SCH (08:15)
[2016-08-30] MEDS: SULFAMETHOXAZOLE-TRIMETHOPRIM 400-80 MG TAB PO SCH (08:15)
[2016-08-30] MEDS: BETHANECHOL CHL 25 MG TAB PO SCH ×2 (08:15→12:49)
[2016-08-30] MEDS: guaiFENesin E.R. 600 MG TAB PO SCH (08:15)
[2016-08-30] MEDS: DOCUSATE SODIUM 100 MG CAP PO SCH (08:16)
[2016-08-30] MEDS: SODIUM CHLORIDE 0.9% FLUSH 10 ML FLUSH IV FLUSH SCH (08:17)
[2016-08-30 08:45] VITALS: BP 115/56; PULSE 95; RESP 17; TEMP 97.8; O2SAT 94
[2016-08-30] MEDS: INSULIN DETEMIR 100 UNITS/ML VIAL SQ SCH (09:00)
--- NOTE | 2016-08-30 10:14 | HHI.PR ---
Subjective Remarks Pt. is a pleasant 76 yo white male with PMHX of Afib, CVA, DM2, Kidney transplant, recurrent UTIs who came in to the hospital as advised by his inspector outside [employer] secondary to wheezing and SOB. Patient states that he was started to have shortness of breath with wheezing about 3 days ago, with cough but it is nonproductive. He also started noticing to have increased edema bilateral lower extremities all the way to his waist. He started taking his Lasix. Patient also complains of increasing urge to urinate but unable to urinate, burning sensation after dribbling. Family members, also reported they started to notice increase in blood glucose whenever they checked the patient. He shortness of breath and wheezing has not improved. He went to his inspector outside [employer] to have adjustments with his insulin secondary to uncontrolled blood sugars. However, family states the inspector outside [employer] told him to go to the hospital to be evaluated because he appears to be with increased shortness of breath and wheezing. Patient and family members also reported that he has been having recurrent urinary tract infections. He has been placed by PCP Dr. Vang on prophylactic Bactrim daily since about 2-3 years ago. However in the last 6 months due to urinary tract infection has been recurrent that they have to add either Cipro, Macrobid, Ceftin with his Bactrim. After being off of second antibiotic, patient would start to complain of dysuria, urgency. He is due to be seen by his urologist Dr. Lee. Otherwise, denies pain and discomfort. Denies SOB/ dyspnea. Denies chest pain, palpitations, headaches, dizziness. Denies fevers, chills, n/v/d. Chest x-ray showed 1. Cardiomegaly. 2. Left lower lobe atelectasis versus pneumonia. Labs reviewed. CBC unremarkable except low platelet 118, CMP showed estimated GFR 58, random glucose 163, low calcium 6.1, corrected calcium 6.4, albumin 3.1. BNP 205. Vitamin D5.6 PTH intact 31.8 UA trace leukocyte esterase Seen in the room in the presence of nurse Miss Clements and with his in the room, no new issues, he is sitting continue with swollen legs 2+, has PAD, may add low dose of Lasix but was discussed with patient and his in the room about the need to stop using Salt with his food. 08/30 Patient seen in the room in the presence of his and Daughter, he is stable almost at baseline, except he has again bilateral leg edema, he had the same situation in the past and will continue his Lasix PRN at home and follow with PCP, also will add Nystatin powder on genital area, the new CXR has some infiltrates on left lung but not symptomatic will go home on [facility] and continue antibiotics Levofloxacin for five more days, optimize his respiratory medicines. Objective Vital Signs Date Time Temp Pulse Resp B/P Pulse Ox O2 Delivery O2 Flow Rate FiO2 08/30/16 08:45 97.8 95 17 115/56 94 08/30/16 07:32 97 Nasal Cannula 2.00 08/30/16 03:51 98.7 89 18 131/80 98 08/30/16 01:16 97 08/29/16 15:45 97.9 96 17 149/68 92 I/O 08/29/16 08/29/16 08/29/16 08/30/16 08/30/16 08/30/16 07:00 15:00 23:00 07:00 15:00 23:00 Intake Total 1930 ml 500 ml Output Total 275 ml 100 ml Balance -275 ml 1830 ml 500 ml Intake Oral 680 ml IV Total 1250 ml 500 ml Output Urine Total 275 ml 100 ml # Voids 1 2 Result Diagram: 08/29/16 0535 08/30/16 0344 Imaging Last Impressions Chest X-Ray 08/28/16 1519 Signed Impressions: Service Date/Time: Sunday, August 28, 2016 15:22 - CONCLUSION: 1. Cardiomegaly. 2. Left lower lobe atelectasis versus pneumonia. Trip Sepulveda MD Renal Ultrasound 08/28/16 0000 Signed Impressions: Service Date/Time: Sunday, August 28, 2016 19:43 - CONCLUSION: 1. Right lower quadrant transplanted kidney is unremarkable. 2. Patient's [place] kidneys are small and echogenic consistent with renal failure. 3. Unremarkable urinary bladder. Dario Downs MD Lower Extremity Ultrasound 08/28/16 0000 Signed Impressions: Service Date/Time: Sunday, August 28, 2016 20:03 - CONCLUSION: No evidence of deep venous thrombosis within the lower extremities. Dario Downs MD Procedures No procedures performed. Other Results Laboratory Tests Test 08/28/16 08/28/16 08/29/16 08/30/16 15:37 17:00 05:35 03:44 Activated Partial 33.9 SEC Thromboplast Time Urine Color YELLOW Urine Turbidity CLEAR Urine pH 5.5 Urine Specific [place] 1.021 Urine Protein 30 mg/dL Urine Glucose (UA) TRACE mg/dL Urine Ketones NEG mg/dL Urine Occult Blood NEG Urine Nitrite NEG Urine Bilirubin NEG Urine Urobilinogen LESS THAN 2.0 MG/DL Urine Leukocyte Esterase TRACE Urine RBC 1 /hpf Urine WBC 6 /hpf Urine Squamous Epithelial <1 /hpf Cells Microscopic Urinalysis Comment CULT NOT INDICATED Hemoglobin A1c 8.8 % Phosphorus Level 4.0 MG/DL Magnesium Level 1.8 MG/DL Total Creatine Kinase 196 U/L Creatine Kinase MB 1.7 NG/ML Troponin I 0.02 NG/ML B-Type Natriuretic Peptide 205 PG/ML Triglycerides Level 130 MG/DL Cholesterol Level 151 MG/DL LDL Cholesterol 89 MG/DL HDL Cholesterol 36.0 MG/DL Cholesterol/HDL Ratio 4.19 RATIO 25-Hydroxy Vitamin D Total 5.6 ng/ML Free Thyroxine 1.14 NG/DL Thyroid Stimulating Hormone 8.100 uIU/ML 3rd Gen Parathyroid Hormone (Intact) 31.8 PG/ML White Blood Count 5.3 TH/MM3 Red Blood Count 4.87 MIL/MM3 Hemoglobin 13.2 GM/DL Hematocrit 40.9 % Mean Corpuscular Volume 84.1 FL Mean Corpuscular Hemoglobin 27.1 PG Mean Corpuscular Hemoglobin 32.3 % Concent Red Cell Distribution Width 15.2 % Platelet Count 104 TH/MM3 Mean Platelet Volume 9.5 FL Neutrophils (%) (Auto) 68.5 % Lymphocytes (%) (Auto) 13.4 % Monocytes (%) (Auto) 16.2 % Eosinophils (%) (Auto) 0.8 % Basophils (%) (Auto) 1.1 % Neutrophils # (Auto) 3.6 TH/MM3 Lymphocytes # (Auto) 0.7 TH/MM3 Monocytes # (Auto) 0.9 TH/MM3 Eosinophils # (Auto) 0.0 TH/MM3 Basophils # (Auto) 0.1 TH/MM3 CBC Comment DIFF FINAL Differential Comment Prothrombin Time 13.5 SEC Prothromb Time International 1.2 RATIO Ratio Total Bilirubin 0.9 MG/DL Direct Bilirubin 0.3 MG/DL Indirect Bilirubin 0.6 MG/DL Aspartate Amino Transf 15 U/L (AST/SGOT) Alanine Aminotransferase 14 U/L (ALT/SGPT) Alkaline Phosphatase 99 U/L Albumin 2.7 GM/DL Lipase 90 U/L Sodium Level 143 MEQ/L Potassium Level 4.3 MEQ/L Chloride Level 108 MEQ/L Carbon Dioxide Level 27.3 MEQ/L Anion Gap 8 MEQ/L Blood Urea Nitrogen 17 MG/DL Creatinine 1.34 MG/DL Estimat Glomerular Filtration 52 ML/MIN Rate Random Glucose 162 MG/DL Calcium Level 6.3 MG/DL Protein Corrected Calcium 7.0 MG/DL Total Protein 5.6 GM/DL Objective Remarks GENERAL: This is a pleasant, well-nourished, well-developed patient, in no apparent distress. SKIN: No ecchymoses or lesions. Warm and dry. Multiple abdominal rash dry. HEAD: Atraumatic. Normocephalic. No temporal or scalp tenderness. EYES: Pupils equal round and reactive. Extraocular motions intact. No scleral icterus. No injection or drainage. ENT: Nose without bleeding. Throat without erythema. Uvula midline. Airway patent. NECK: Trachea midline. No JVD or lymphadenopathy. Supple. CARDIOVASCULAR: Irregular rate and rhythm, gallops, or rubs. RESPIRATORY: Expiratory wheezes all throughout. Moderate air entry. GASTROINTESTINAL: Abdomen soft, non-tender, nondistended. Bowel sounds active 4. MUSCULOSKELETAL: Extremities without clubbing, cyanosis, bilateral lower extremity +2. Dependent edema +2 flank, +2 thighs NEUROLOGICAL: Awake and alert. Motor and sensory grossly within normal limits. Normal speech. Medications and IVs Current Medications Medications (Trade) Dose Ordered Sig/Tj Route Start Time Stop Time Status Last Admin (Urecholine) 25 mg TID PO 08/29/16 09:00 08/30/16 08:15 (Lasix) 20 mg DAILY PRN PO 08/28/16 18:15 08/29/16 05:27 (Keppra) 500 mg BID PO 08/28/16 21:00 08/30/16 08:15 (Singulair) 10 mg HS PO 08/28/16 21:00 08/29/16 20:41 (Flomax) 0.4 mg HS PO 08/28/16 21:00 (Melatonin) 10 mg HS PO 08/28/16 21:00 08/29/16 20:42 Trimethoprim/ Sulfamethoxazole 1 tab 1 tab DAILY PO 08/29/16 09:00 08/30/16 08:15 Ceftriaxone Sodium 1000 mg/ Sodium Chloride 100 ml @ 200 mls/hr Q24H IV 08/29/16 09:00 08/30/16 08:15 Azithromycin 500 mg/Sodium Chloride 250 ml @ 250 mls/hr Q24H IV 08/28/16 20:00 08/29/16 20:41 (NS 1000 ml Inj) 1,000 ml @ 83 mls/hr Q12H3M IV 08/28/16 18:07 08/30/16 03:45 (NS Flush) 2 ml UNSCH PRN IV FLUSH 08/28/16 18:15 (NS Flush) 2 ml BID IV FLUSH 08/28/16 21:00 08/30/16 08:17 (Tylenol) 650 mg Q4H PRN PO 08/28/16 18:15 (Zofran Inj) 4 mg Q6H PRN IVP 08/28/16 18:15 (Reglan Inj) 5 mg Q6H PRN IV PUSH 08/28/16 18:15 (Dulcolax Supp) 10 mg DAILY PRN GA 08/28/16 18:15 (Colace) 100 mg Q12H PO 08/28/16 21:00 (Narcan Inj) 0.4 mg UNSCH PRN IV 08/28/16 18:15 (Levemir Inj) 10 units BID SQ 08/29/16 21:00 08/29/16 20:46 (NovoLIN R INJ) 5 units TIDAC SQ 08/29/16 17:00 08/29/16 18:30 (Mucinex Er) 600 mg BID PO 08/29/16 15:00 08/30/16 08:15 A/P Problem List: (1) Atrial fibrillation ICD Code: I48.91 (2) Chronic kidney disease, stage II (mild) ICD Code: N18.2 (3) Community acquired pneumonia ICD Code: J18.9 Assessment and Plan Pt. is a pleasant 76 yo white male with PMHX of Afib, CVA, DM2, Kidney transplant, recurrent UTIs who came in to the hospital as advised by his inspector outside [employer] secondary to wheezing and SOB. Patient states that he was started to have shortness of breath with wheezing about 3 days ago, with cough but it is nonproductive. He also started noticing to have increased edema bilateral lower extremities all the way to his waist. He started taking his Lasix. Patient also complains of increasing urge to urinate, burning sensation after urination. Reports recurrent urinary tract infection, he was on prophylactic Bactrim daily for 2-3 years, last 6 months PCP needed to add Cipro , Macrobid, Ceftin with his Bactrim for recurrent urinary tract infection. Community acquired pneumonia, possible S. pneumonia - Was given Levaquin IV. We'll switch over to ceftriaxone 1 g every 24, azithromycin 500 mg every 24 - Bronchodilator, Mucolytic and incentive spirometry. - he had a new CXR today noted infiltrates on left lung, but clinically improving, afebrile, no Leukocytosis, he wants to go home, will resume his [facility] for discharge, also will continue Levaquin 500 mg daily for seven days and follow with PCP, optimized his respiratory medicines. Recurrent urinary tract infection, acute on chronic - Continue prophylactic Bactrim daily - UA trace leukocyte Esterase Urine Culture negative. - On ceftriaxone IV - Status post consult by Urology specialist Doctor Mariano Lee, as per notes, the patient had recent recurrent UTI in the past positive for Enterococcus and Pseudomonas, he has possible secondary outlet obstruction, recommended to continue Flomax 0.4 mg QHS, and Urecholine 25 mg TID, he will need Cystoscopy in his office after discharge, will follow in his office in one week. Chronic kidney disease status post Kidney transplant. today mild worsening Creatinine, will need to have a new BMP in three days, and show result to PCP. Creatinine 1.35 Poor urine output - History of kidney transplant - Creatinine 1.35 - Monitor BMP as outpatient and follow with PCP and Urology specialist - US kidney and bladder did not found pathology Bilateral lower extremity edema, dependent edema - Bilateral lower extremity ultrasound negative for DVT - Venous Stasis. A. fib - not on any anticoagulants patient has hemorrhagic bleed in 2012 and has not been restarted on any anticoagulation Hypocalcemia - History of parathyroidectomy - Calcium gluconate given again today - Patient on calcium supplements at home 1200 mg daily, restart supplement. - Stable will increase her Calcium Citrate to 950 mg BID. DM 2 - Home medications 7030 twice a day sliding scale. Will switch over to NovoLog sliding scale for now - Added Levemir 10 units BID, Novolin scheduled with every meal. - Check hemoglobin A1C 8.8 poorly controlled DM II stable continue present care. controlled. CVA, hemorrhagic bleed, craniotomy Seizure prophylaxis - Keppra 500 mg twice a day - Seizure precaution Tinea Cruris on Nystatin Powder. Legally Blind DVT prop early ambulation patient walking in the aisle with Physical Therapy. Code Status Full code Discussed Condition With Discussed with the patient and his Daughter in the room, he will be discharge Home continue Levaquin for seven days more, also will follow with PCP, with new BMP, has Tinea cruris will continue Nystatin Powder. Discharge home on [facility] for PT Discharge Planning Discharge Home today. Mateo Ridley MD Aug 30, 2016 10:14
--- NOTE | 2016-08-30 11:09 | RADRPT ---
EXAM DATE/TIME: 08/30/2016 10:49 [place] COMPARISON: No previous studies available for comparison. INDICATIONS : Evaluate for pneumonia. MEDICAL HISTORY : Stroke. Diabetes mellitus type II. Atrial Fibrillation, Meningioma SURGICAL HISTORY : CABG. Parathyroid, Craniotomy, Kidney Transplant ENCOUNTER: Subsequent ACUITY: 2 days PAIN SCORE: 0/10 LOCATION: Bilateral chest FINDINGS: PA and lateral views of the chest show low lung volumes. An intraalveolar infiltrate is seen within t he left lower lobe. No effusions. Heart is normal in size. Median sternotomy wires noted. CONCLUSION: Left lower lobe pneumonia Jesus Joseph Jr., MD on August 30, 2016 at 11:06 Board Certified Radiologist. This report was verified electronically.
[2016-08-30 11:55] VITALS: BP 119/59; PULSE 94; RESP 17; TEMP 97.9; O2SAT 94
[2016-08-30] MEDS ORDERED: BIO-POW (13:32)
[2016-08-30] MEDS ORDERED: CALC950T PO (13:32)
[2016-08-30] MEDS ORDERED: LEVA500T PO (13:32)
[2016-08-30] MEDS ORDERED: SYMB160A INH (13:32)
[2016-08-30] MEDS ORDERED: MUCI30TA2 PO (13:32)
--- NOTE | 2016-08-30 13:52 | HHI.DS ---
Discharge Summary Admission Date Aug 28, 2016 at 18:10 Discharge Date: Aug 30, 2016 Admitting Diagnosis Hypocalcemia, Pneumonia (1) Seizures ICD Code: R56.9 (2) Hx of kidney transplant ICD Code: Z94.0 Diagnosis: Secondary (3) DEJA (acute kidney injury) ICD Code: N17.9 Diagnosis: Secondary (4) DM2 (diabetes mellitus, type 2) ICD Code: E11.9 Diagnosis: Secondary (5) Recurrent UTI ICD Code: N39.0 Diagnosis: Principal (6) Pneumonia ICD Code: J18.9 Diagnosis: Principal (7) A-fib ICD Code: I48.91 Diagnosis: Secondary (8) Community acquired pneumonia ICD Code: J18.9 Diagnosis: Principal Procedures No procedures performed to the patient. Brief History - From Admission Pt. is a pleasant 76 yo white male with PMHX of Afib, CVA, DM2, Kidney transplant, recurrent UTIs who came in to the hospital as advised by his cutter [employer] secondary to wheezing and SOB. Patient states that he was started to have shortness of breath with wheezing about 3 days ago, with cough but it is nonproductive. He also started noticing to have increased edema bilateral lower extremities all the way to his waist. He started taking his Lasix. Patient also complains of increasing urge to urinate but unable to urinate, burning sensation after dribbling. Family members, also reported they started to notice increase in blood glucose whenever they checked the patient. He shortness of breath and wheezing has not improved. He went to his cutter [employer] to have adjustments with his insulin secondary to uncontrolled blood sugars. However, family states the cutter [employer] told him to go to the hospital to be evaluated because he appears to be with increased shortness of breath and wheezing. Patient and family members also reported that he has been having recurrent urinary tract infections. He has been placed by PCP Dr. Vang on prophylactic Bactrim daily since about 2-3 years ago. However in the last 6 months due to urinary tract infection has been recurrent that they have to add either Cipro, Macrobid, Ceftin with his Bactrim. After being off of second antibiotic, patient would start to complain of dysuria, urgency. He is due to be seen by his urologist Dr. Lee. Otherwise, denies pain and discomfort. Denies SOB/ dyspnea. Denies chest pain, palpitations, headaches, dizziness. Denies fevers, chills, n/v/d. Chest x-ray showed 1. Cardiomegaly. 2. Left lower lobe atelectasis versus pneumonia. Labs reviewed. CBC unremarkable except low platelet 118, CMP showed estimated GFR 58, random glucose 163, low calcium 6.1, corrected calcium 6.4, albumin 3.1. BNP 205. Vitamin D5.6 PTH intact 31.8 UA trace leukoesterase Patient received levo floxacillin IV, albuterol treatment, calcium gluconate, CBC/BMP: 08/29/16 0535 08/30/16 0344 Significant Findings Laboratory Tests Test 08/28/16 08/29/16 08/30/16 15:37 05:35 03:44 Platelet Count 118 TH/MM3 104 TH/MM3 (150-450) (150-450) Monocytes (%) (Auto) 16.6 % 16.2 % (0.0-8.0) (0.0-8.0) Monocytes # (Auto) 1.2 TH/MM3 (0-0.9) Prothrombin Time 12.4 SEC 13.5 SEC (9.8-11.6) (9.8-11.6) Activated Partial 33.9 SEC Thromboplast Time (24.3-30.1) Urine Protein 30 mg/dL (NEG-TRACE) Urine Leukocyte Esterase TRACE (NEG) Urine WBC 6 /hpf (0-5) Estimat Glomerular Filtration 58 ML/MIN (>89) 56 ML/MIN (>89) 52 ML/MIN (>89) Rate Random Glucose 163 MG/DL 180 MG/DL 162 MG/DL (74-106) (74-106) (74-106) Hemoglobin A1c 8.8 % (4.3-6.0) Calcium Level 6.1 MG/DL 6.2 MG/DL 6.3 MG/DL (8.5-10.1) (8.5-10.1) (8.5-10.1) Protein Corrected Calcium 6.4 MG/DL 6.9 MG/DL 7.0 MG/DL (8.5-10.1) (8.5-10.1) (8.5-10.1) Alkaline Phosphatase 120 U/L (45-117) B-Type Natriuretic Peptide 205 PG/ML (0-100) Albumin 3.1 GM/DL 2.7 GM/DL (3.4-5.0) (3.4-5.0) HDL Cholesterol 36.0 MG/DL (40.0-60.0) 25-Hydroxy Vitamin D Total 5.6 ng/ML (30-100) Thyroid Stimulating Hormone 8.100 uIU/ML 3rd Gen (0.358-3.740) Lymphocytes # (Auto) 0.7 TH/MM3 (1.0-4.8) Direct Bilirubin 0.3 MG/DL (0.0-0.2) Total Protein 5.5 GM/DL 5.6 GM/DL (6.4-8.2) (6.4-8.2) Chloride Level 108 MEQ/L (98-107) Creatinine 1.34 MG/DL (0.60-1.30) Imaging Last Impressions Chest X-Ray 08/30/16 Signed Impressions: Service Date/Time: August 10:49 - CONCLUSION: Left lower lobe pneumonia Jesus Joseph Jr., MD Renal Ultrasound 08/28/16 Signed Impressions: Service Date/Time: Sunday, August 28, 2016 19:43 - CONCLUSION: 1. Right lower quadrant transplanted kidney is unremarkable. 2. Patient's [place] kidneys are small and echogenic consistent with renal failure. 3. Unremarkable urinary bladder. Dario Downs MD Lower Extremity Ultrasound 08/28/16 Signed Impressions: Service Date/Time: Sunday, August 28, 2016 20:03 - CONCLUSION: No evidence of deep venous thrombosis within the lower extremities. Dario Downs MD PE at Discharge GENERAL: This is a pleasant, well-nourished, well-developed patient, in no apparent distress. SKIN: No ecchymoses or lesions. Warm and dry. Multiple abdominal rash dry. HEAD: Atraumatic. Normocephalic. No temporal or scalp tenderness. EYES: Pupils equal round and reactive. Extraocular motions intact. No scleral icterus. No injection or drainage. ENT: Nose without bleeding. Throat without erythema. Uvula midline. Airway patent. NECK: Trachea midline. No JVD or lymphadenopathy. Supple. CARDIOVASCULAR: Irregular rate and rhythm, gallops, or rubs. RESPIRATORY: Expiratory wheezes all throughout. Moderate air entry. GASTROINTESTINAL: Abdomen soft, non-tender, nondistended. Bowel sounds active 4. MUSCULOSKELETAL: Extremities without clubbing, cyanosis, bilateral lower extremity +2. Dependent edema +2 flank, +2 thighs NEUROLOGICAL: Awake and alert. Motor and sensory grossly within normal limits. Normal speech. Hospital Course Pt. is a pleasant 76 yo white male with PMHX of Afib, CVA, DM2, Kidney transplant, recurrent UTIs who came in to the hospital as advised by his cutter [employer] secondary to wheezing and SOB. Patient states that he was started to have shortness of breath with wheezing about 3 days ago, with cough but it is nonproductive. He also started noticing to have increased edema bilateral lower extremities all the way to his waist. He started taking his Lasix. Patient also complains of increasing urge to urinate but unable to urinate, burning sensation after dribbling. Family members, also reported they started to notice increase in blood glucose whenever they checked the patient. He shortness of breath and wheezing has not improved. He went to his cutter [employer] to have adjustments with his insulin secondary to uncontrolled blood sugars. However, family states the cutter [employer] told him to go to the hospital to be evaluated because he appears to be with increased shortness of breath and wheezing. Patient and family members also reported that he has been having recurrent urinary tract infections. He has been placed by PCP Dr. Vang on prophylactic Bactrim daily since about 2-3 years ago. However in the last 6 months due to urinary tract infection has been recurrent that they have to add either Cipro, Macrobid, Ceftin with his Bactrim. After being off of second antibiotic, patient would start to complain of dysuria, urgency. He is due to be seen by his urologist Dr. Lee. Otherwise, denies pain and discomfort. Denies SOB/ dyspnea. Denies chest pain, palpitations, headaches, dizziness. Denies fevers, chills, n/v/d. Chest x-ray showed 1. Cardiomegaly. 2. Left lower lobe atelectasis versus pneumonia. Labs reviewed. CBC unremarkable except low platelet 118, CMP showed estimated GFR 58, random glucose 163, low calcium 6.1, corrected calcium 6.4, albumin 3.1. BNP 205. Vitamin D5.6 PTH intact 31.8 UA trace leukocyte esterase Seen in the room in the presence of nurse Miss Clements and with his in the room, no new issues, he is sitting continue with swollen legs 2+, has PAD, may add low dose of Lasix but was discussed with patient and his in the room about the need to stop using Salt with his food. 08/30 Patient seen in the room in the presence of his and Daughter, he is stable almost at baseline, except he has again bilateral leg edema, he had the same situation in the past and will continue his Lasix PRN at home and follow with PCP, also will add Nystatin powder on genital area, the new CXR has some infiltrates on left lung but not symptomatic will go home on HHC and continue antibiotics Levofloxacin for five more days, optimize his respiratory medicines. Assessment and Plan Pt. is a pleasant 76 yo white male with PMHX of Afib, CVA, DM2, Kidney transplant, recurrent UTIs who came in to the hospital as advised by his cutter [employer] secondary to wheezing and SOB. Patient states that he was started to have shortness of breath with wheezing about 3 days ago, with cough but it is nonproductive. He also started noticing to have increased edema bilateral lower extremities all the way to his waist. He started taking his Lasix. Patient also complains of increasing urge to urinate, burning sensation after urination. Reports recurrent urinary tract infection, he was on prophylactic Bactrim daily for 2-3 years, last 6 months PCP needed to add Cipro , Macrobid, Ceftin with his Bactrim for recurrent urinary tract infection. Community acquired pneumonia, possible S. pneumonia - Was given Levaquin IV. We'll switch over to ceftriaxone 1 g every 24, azithromycin 500 mg every 24 - Bronchodilator, Mucolytic and incentive spirometry. - he had a new CXR today noted infiltrates on left lung, but clinically improving, afebrile, no Leukocytosis, he wants to go home, will resume his HHC for discharge, also will continue Levaquin 500 mg daily for seven days and follow with PCP, optimized his respiratory medicines. Recurrent urinary tract infection, acute on chronic - Continue prophylactic Bactrim daily - UA trace leukocyte Esterase Urine Culture negative. - On ceftriaxone IV - Status post consult by Urology specialist Doctor Mariano Lee, as per notes, the patient had recent recurrent UTI in the past positive for Enterococcus and Pseudomonas, he has possible secondary outlet obstruction, recommended to continue Flomax 0.4 mg QHS, and Urecholine 25 mg TID, he will need Cystoscopy in his office after discharge, will follow in his office in one week. Chronic kidney disease status post Kidney transplant. today mild worsening Creatinine, will need to have a new BMP in three days, and show result to PCP. Creatinine 1.35 Poor urine output - History of kidney transplant - Creatinine 1.35 - Monitor BMP as outpatient and follow with PCP and Urology specialist - US kidney and bladder did not found pathology Bilateral lower extremity edema, dependent edema - Bilateral lower extremity ultrasound negative for DVT - Venous Stasis. A. fib - not on any anticoagulants patient has hemorrhagic bleed in 2012 and has not been restarted on any anticoagulation Hypocalcemia - History of parathyroidectomy - Calcium gluconate given again today - Patient on calcium supplements at home 1200 mg daily, restart supplement. - Stable will increase her Calcium Citrate to 950 mg BID. DM 2 - Home medications 7030 twice a day sliding scale. Will switch over to NovoLog sliding scale for now - Added Levemir 10 units BID, Novolin scheduled with every meal. - Check hemoglobin A1C 8.8 poorly controlled DM II stable continue present care. controlled. CVA, hemorrhagic bleed, craniotomy Seizure prophylaxis - Keppra 500 mg twice a day - Seizure precaution Tinea Cruris on Nystatin Powder. Legally Blind DVT prop early ambulation patient walking in the aisle with Physical Therapy. Code Status Full code Discussed Condition With Discussed with the patient and his Daughter in the room, he will be discharge Home continue Levaquin for seven days more, also will follow with PCP, with new BMP, has Tinea cruris will continue Nystatin Powder. Discharge home on [facility] for PT Discharge Planning Discharge Home today. Pt Condition on Discharge: Stable Discharge Disposition: Disch w/ Home Health Serv Discharge Time: > 30 minutes Discharge Instructions DIET: Follow Instructions for: Heart Healthy Diet, Diabetic Diet Activities you can perform: Regular-No Restrictions Other Activity Instructions: Follow Physical Therapy recommendations. Mateo Ridley MD Aug 30, 2016 13:52
--- NOTE | 2016-08-30 13:57 | HHI.FF ---
Face to Face Verification Diagnosis: (1) Recurrent UTI (2) A-fib (3) Chronic kidney disease, stage II (mild) (4) Fungal infection (5) DM2 (diabetes mellitus, type 2) (6) Legally blind (7) Hypocalcemia Physical Therapy Order: Evaluate and Treat, Improve ambulation, Strength and gait training Home Health Nursing Order: Medical education Signs/symptoms of disease process Medication education-adverse effect Nursing assessment with vital signs I have seen patient Joselito Olson on 08/30/16. My clinical findings support the need for the requested home health care services because: Ltd mobility - disease progression Deconditioned w/ increased weakness I certify that my clinical findings support that this patient is homebound because: Unsafe to leave home unassisted Mateo Ridley MD Aug 30, 2016 13:57
[2016-08-30] MEDS ORDERED: NYSTATIN 100,000 U/GM PWD 15 GM BTL TOPICAL SCH (14:00)
[2016-08-30] MEDS ORDERED: AZITHROMYCIN 250 MG TAB PO SCH (20:00)
[2016-09-17] MEDS ORDERED: ALBUS PO (09:47)
[2016-11-19] MEDS ORDERED: CALC250T PO (08:44)
[2016-11-19] MEDS ORDERED: LEVA500T20 PO (08:44)
[2016-11-19] MEDS ORDERED: NYST10007 TOPICAL (08:44)
[2016-11-19] MEDS ORDERED: FURO1TAB62 PO (08:44)
[2016-11-19] MEDS ORDERED: CRANCAP2 PO (08:44)
[2016-11-19] MEDS ORDERED: BETH25TA2 PO (08:45)
[2016-11-19] MEDS ORDERED: LEVO500T8 PO (09:24)
[2016-11-19] MEDS ORDERED: FINA1TAB16 PO (09:24)
== END 2016-08-30 16:08 | disposition home health service (06) | DRG 194 ==
LOC: NEPC 11:13 → NEDA 18:06 → OBSVTOIN 18:10 → NEPGCP 20:55
PROVIDERS: ADMIT Internal Medicine; ATTEND Internal Medicine
DX: J18.9 Pneumonia, unspecified organism (principal); Z94.0 Kidney transplant status; N17.9 Acute kidney failure, unspecified; E11.22 Type 2 diabetes mellitus with diabetic chronic kidney disease; I50.9 Heart failure, unspecified; N39.0 Urinary tract infection, site not specified; I48.91 Unspecified atrial fibrillation; N13.9 Obstructive and reflux uropathy, unspecified; R56.9 Unspecified convulsions; B35.6 Tinea cruris; E83.51 Hypocalcemia; Z87.440 Personal history of urinary (tract) infections; R30.0 Dysuria; Z86.73 Personal history of transient ischemic attack (TIA), and cerebral infarction without residual deficits; H54.8 Legal blindness, as defined in USA; Z85.828 Personal history of other malignant neoplasm of skin; Z95.1 Presence of aortocoronary bypass graft; Z95.5 Presence of coronary angioplasty implant and graft; N18.2 Chronic kidney disease, stage 2 (mild)
CPT/HCPCS: 71010; 71020; 76775; 80048; 80053; 80061; 80076; 81001; 82306; 82550; 82552; 82948; 83036; 83690; 83735; 83880; 83970; 84100; 84155; 84439; 84443; 84484; 85025; 85610; 85730; 87086; 93005; 93970; 94150; 94640; 94664; 96365; G8987-GP; G8988-GP; J0456; J0610; J0696; J1815; J7030; J7050; J7613

== ENCOUNTER 2016-11-20 10:19 | Inpatient (IN) | payer MEDICARE ==
[2016-11-20] VITALS (10 sets, daily range): BP systolic 92–143; BP diastolic 53–84; PULSE 73–105; RESP 16–26; TEMP 97–97.9; O2SAT 91–99
[~2016-11-20] VITALS: Ht 177.8 cm; Wt 88.0 kg
[~2016-11-20 10:19] MED LIST changes: +ALBUS PO; -BACT400T PO; -BETH25 PO; +BETH25TA2 PO; +CALC250T PO; -CIPR-9 PO; +CRANCAP2 PO; +FINA1TAB16 PO; +FURO1TAB62 PO; +LEVA500T20 PO; +LEVO500T8 PO; +MELA1TAB18 PO; -MELAPOW2 PO; +MUCI30TA2 PO; +NYST10007 TOPICAL; -TAMS0.4C4 PO; +ZOFR8TAB PO
[2016-11-20] MEDS ORDERED: SODIUM CHLORIDE 0.9% FLUSH 10 ML FLUSH IVF PRN (10:45)
--- NOTE | 2016-11-20 10:59 | PD ---
HPI Chief Complaint: Abnormal Results Time Seen by Provider: 10:29 Travel History International Travel<30 days: No Contact w/Intl Traveler<30days: No Traveled to known affect area: No History of Present Illness HPI 76yo M with PMH of Afib not on any medication, DM, kidney transplant 20 years ago, CKD with recurrent hypocalcemia presents to the ED with c/o hypocalcemia. Pt got labs drawn last week and went to PMD and was informed to come to the ED if symptoms worsen. Pt has generalized weakness which is what he usually has with hypocalcemia. Pt also with left sided chest pain this morning and some sob. His states he gets this intermittently and that sometimes his saturation is in the high 80s and it goes back to low 90s. Pt was admitted 08/28-08/30/16 for hypocalcemia and pneumonia. Pt is on levaquin from urologist Dr. Lee for UTI and is on day 5. Denies any fever, n/v, abdominal pain, focal weakness or numbness. PFSH Past Medical History Hx Anticoagulant Therapy: No Arthritis: Yes Asthma: No Atrial Fibrillation: Yes Autoimmune Disease: Yes (shingles in the past) Blood Disorders: No Anxiety: No Depression: No Heart Rhythm Problems: Yes Cancer: Yes (SKIN ) Cardiac Catheterization: Yes Cardiovascular Problems: Yes (afib, no coumadin hx hemmorhagic cva) High Cholesterol: No Chemotherapy: No Chest Pain: No Congestive Heart Failure: No COPD: No Cerebrovascular Accident: Yes (cva 2013) Diabetes: Yes Diminished Hearing: No Endocrine: Yes Gastrointestinal Disorders: Yes (diarrhea) GERD: No Genitourinary: Yes (RENAL FAILURE) Headaches: No Hepatitis: No Hiatal Hernia: No Hypertension: Yes (not since transplant) Immune Disorder: No Kidney Stones: No Musculoskeletal: Yes (ARTHIRITS) Neurologic: Yes (SEIZURES) Psychiatric: No Reproductive: No Respiratory: No Immunizations Current: Yes Migraines: No Myocardial Infarction: No Radiation Therapy: No Renal Failure: Yes Seizures: Yes Sickle Cell Disease: No Sleep Apnea: No Ulcer: No PNEUMOCCOCAL Vaccine (Year): 3 Past Surgical History Abdominal Surgery: No AICD: No Appendectomy: No Body Medical Devices: penile implant Cardiac Surgery: Yes (CABG) Cholecystectomy: No Coronary Artery Bypass Graft: Yes (5WAY BYPASS 94') Coronary Stent: Yes (X1 98') Ear Surgery: No Endocrine Surgery: Yes (PARATHYROIDECTOMY) Eye Surgery: Yes Genitourinary Surgery: Yes (RENAL TRANSPLANT 1998) Gynecologic Surgery: No Insulin Pump: No Joint Replacement: No Neurologic Surgery: Yes (CRAINIOTOMY OCTOBER 2013) Oral Surgery: No Pacemaker: No Thoracic Surgery: No Other Surgery: Yes (renal transplant) Social History Alcohol Use: No Tobacco Use: No Substance Use: No Allergies-Medications (Allergen,Severity, Reaction): Coded Allergies: Haldol (Verified Allergy, Severe, Confusion, 11/19/16) Trileptal (Verified Allergy, Severe, 11/19/16) Reported Meds & Prescriptions Reported Meds & Active Scripts Active Finasteride (Finasteride (Alopecia)) 1 Mg Tab 5 Mg PO DAILY Levofloxacin 500 Mg Tablet 500 Mg PO DAILY Reported Calcium (Oyster Shell) 500 Mg Tab 1,000 Mg PO DAILY Albuterol Neb (Albuterol Sulfate) 2.5 Mg/3 Ml Neb 2.5 Mg NEB TID NEB PRN Bethanechol 25 Mg Tab 25 Mg PO BID Lasix (Furosemide) 20 Mg Tab 60 Mg PO DAILY PRN Zofran (Ondansetron HCl) 8 Mg Tab 8 Mg PO Q6HR PRN Melatonin 10 Mg Tab 10 Mg PO HS Lortab (Hydrocodone-Acetaminophen) 5-325 Mg Tab 1 Tab PO QID PRN Novolin 70-30 Inj (Insulin Human Isoph/Insulin Regular) 1,000 Unit/10 Ml Vial SQ TIDAC Sliding scale as directed Keppra (Levetiracetam) 500 Mg Tab 500 Mg PO BID Singulair (Montelukast Sodium) 10 Mg Tab 10 Mg PO DAILY Review of Systems Except as stated in HPI: all other systems reviewed are Neg Physical Exam Narrative GEN: 76yo M not in distress. SKIN: Warm and dry. HEAD: Normocephalic, atraumatic. ENT: Pupils reactive to light. NECK: No JVD, trachea midline. CV: S1, S2. Lungs: CTA B/L, equal breath sounds. Abd: soft, NT/ND. BACK: No midline ttp. Ext: +Edema lower ext. Neuro: No focal neurologic deficits. Data Data Last Documented VS Vital Signs Date Time Temp Pulse Resp B/P Pulse Ox O2 Delivery O2 Flow Rate FiO2 11/20/16 13:15 98 Nasal Cannula 11/20/16 13:15 73 26 103/63 2 11/20/16 10:28 97.7 Orders Electrocardiogram (11/20/16 10:43) Ckmb (Isoenzyme) Profile (11/20/16 10:43) Complete Blood Count With Diff (11/20/16 10:43) Comprehensive Metabolic Panel (11/20/16 10:43) Magnesium (Mg) (11/20/16 10:43) Prothrombin Time / Inr (Pt) (11/20/16 10:43) Act Partial Throm Time (Ptt) (11/20/16 10:43) Troponin I (11/20/16 10:43) Chest, Single Ap (11/20/16 10:43) Ecg Monitoring (11/20/16 10:43) Bilateral Bp Monitoring (11/20/16 10:43) Iv Access Insert/Monitor (11/20/16 10:43) Oximetry (11/20/16 10:43) Oxygen Administration (11/20/16 10:43) Sodium Chloride 0.9% Flush (Ns Flush) (11/20/16 10:45) B-Type Natriuretic Peptide (11/20/16 10:44) Calcium Gluconate Inj (Calcium Gluconate (11/20/16 11:00) CKMB (11/20/16 10:45) CKMB% (11/20/16 10:45) Admit Order (Ed Use Only) (11/20/16 13:24) Labs Laboratory Tests Test 11/20/16 11/20/16 11/20/16 10:45 13:13 13:15 White Blood Count 9.5 TH/MM3 Red Blood Count 5.81 MIL/MM3 Hemoglobin 14.6 GM/DL Hematocrit 47.1 % Mean Corpuscular Volume 81.1 FL Mean Corpuscular Hemoglobin 25.2 PG Mean Corpuscular Hemoglobin 31.1 % Concent Red Cell Distribution Width 18.5 % Platelet Count 135 TH/MM3 Mean Platelet Volume 8.8 FL Neutrophils (%) (Auto) 76.1 % Lymphocytes (%) (Auto) 7.0 % Monocytes (%) (Auto) 16.1 % Eosinophils (%) (Auto) 0.4 % Basophils (%) (Auto) 0.4 % Neutrophils # (Auto) 7.2 TH/MM3 Lymphocytes # (Auto) 0.7 TH/MM3 Monocytes # (Auto) 1.5 TH/MM3 Eosinophils # (Auto) 0.0 TH/MM3 Basophils # (Auto) 0.0 TH/MM3 CBC Comment DIFF FINAL Differential Comment Prothrombin Time 14.5 SEC Prothromb Time International 1.3 RATIO Ratio Activated Partial 37.1 SEC Thromboplast Time B-Type Natriuretic Peptide 361 PG/ML 25-Hydroxy Vitamin D Total 5.0 ng/ML Sodium Level 135 MEQ/L Potassium Level 4.4 MEQ/L Chloride Level 96 MEQ/L Carbon Dioxide Level 30.5 MEQ/L Anion Gap 9 MEQ/L Blood Urea Nitrogen 41 MG/DL Creatinine 1.95 MG/DL Estimat Glomerular Filtration 34 ML/MIN Rate Random Glucose 169 MG/DL Calcium Level LESS THAN 5.0 MG/DL Protein Corrected Calcium 5.8 MG/DL Magnesium Level 1.8 MG/DL Total Bilirubin 0.6 MG/DL Aspartate Amino Transf 26 U/L (AST/SGOT) Alanine Aminotransferase 16 U/L (ALT/SGPT) Alkaline Phosphatase 97 U/L Total Creatine Kinase 642 U/L Creatine Kinase MB 5.2 NG/ML Creatine Kinase MB % 0.8 % Troponin I 0.11 NG/ML Total Protein 5.1 GM/DL Albumin 1.9 GM/DL [facility] Medical Decision Making Medical Screen Exam Complete: Yes Emergency Medical Condition: Yes Interpretation(s) EKG: Afib at 79bpm. Prolong QTc 502ms. Differential Diagnosis Hypocalcemia vs. other electrolyte abnormality vs. ACS vs. pneumonia Narrative Course 76yo M with CKD, kidney transplant and recurrent hypocalcemia here for generalized weakness and states that he gets that with hypocalcemia. Pt does not know the level from lab that was drawn last week. Pt also with atypical chest pain, and has no chest pain now. Denies any smoking or COPD. Pt was hypoxic with O2 sat 89%-91% on RA so pt placed on 2 L NC and saturating at 97%. Labs reviewed, mild thrombocytopenia. Protein corrected calcium is 5.8. Pt was initially given 1gm of calcium gluconate since the lab took about 3 hours to be resulted and pt had history of hypocalcemia and prolong QTc. An additional 1gm of calcium gluconate was ordered after the lab resulted. Troponin was mildly elevated at 0.11, no chest pain currently, will trend. Discussed with hospitalist and accepted to her service. Pt [facility] be [facility] to the [facility]. Critical Care Narrative Aggregate critical care time was 50 minutes. Time to perform other separately billable procedures was not included in the critical care time. My time did not include minutes spent treating any other patients simultaneously or on activities that did not directly contribute to the patient's treatment. The services I provided to this patient were to treat and/or prevent clinically significant deterioration that could result in: cardiovascular collapse or . I provided critical care services requiring my management, as noted below: Chart data review, documentation time, medication orders and management, vital sign assessments/reviewing monitor data, ordering and reviewing lab tests, ordering and interpreting/reviewing x- rays and diagnostic studies, care of the patient and discussion of the patient with the admitting physicians. Diagnosis Primary Impression: Hypocalcemia Admitting Information Admitting Physician Requests: Elyse Wagner DO Nov 20, 2016 10:59
[2016-11-20] MEDS ORDERED: CALCIUM GLUCONATE INJ 1 GM in DEXTROSE 5% IN WATER 100ML INJ 100 ML IV ONE ×4 (11:00→14:00)
[2016-11-20 11:17] LABS: AUTOMATED NEUTROPHIL # 7.2 TH/MM3 (1.8-7.7); BASOPHIL % 0.4 % (0.0-2.0); EOSINOPHIL % 0.4 % (0.0-4.0); HEMATOCRIT 47.1 % (39.0-51.0); HEMO FLAGS DIFF FINAL; LYMPHOCYTE # 0.7 TH/MM3 (1.0-4.8); MEAN CELL VOLUME 81.1 FL (80.0-100.0); MEAN CORPUSCULAR HEMOGLOBIN 25.2 PG (27.0-34.0); MEAN CORPUSCULAR HGB CONC 31.1 % (32.0-36.0); MONO % 16.1 % (0.0-8.0); NEUT % 76.1 % (16.0-70.0); PLATELET COUNT 135 TH/MM3 (150-450); RED BLOOD COUNT 5.81 MIL/MM3 (4.50-5.90); RED CELL DISTRIBUTION WIDTH 18.5 % (11.6-17.2); WHITE BLOOD COUNT 9.5 TH/MM3 (4.0-11.0)
[2016-11-20 11:26] LABS: APTT (PATIENT) 37.1 SEC (24.3-30.1); INTERNATIONAL NORMALIZED RATIO 1.3 RATIO; PROTHROMBIN TIME - PATIENT 14.5 SEC (9.8-11.6)
[2016-11-20 11:35] LABS: ALT (GPT) 16 U/L (12-78); ANION GAP 9 MEQ/L (5-15); AST (GOT) 26 U/L (15-37); BICARBONATE 30.5 MEQ/L (21.0-32.0); BLOOD UREA NITROGEN 41 MG/DL (7-18); CHLORIDE 96 MEQ/L (98-107); GLOMERULAR FILTRATION RATE 34 ML/MIN (>89); MAGNESIUM 1.8 MG/DL (1.5-2.5); POTASSIUM 4.4 MEQ/L (3.5-5.1); SODIUM (NA) 135 MEQ/L (136-145)
[2016-11-20] MEDS ORDERED: CALC500T35 PO (11:36)
[2016-11-20] MEDS ORDERED: ALBU0.08 NEB (11:36)
--- NOTE | 2016-11-20 11:47 | RADRPT ---
EXAM DATE/TIME: 11/20/2016 11:01 [facility] COMPARISON: CHEST SINGLE AP, August 28, 2016, 15:22. INDICATIONS : Chest pain. MEDICAL HISTORY : Congestive heart failure. Osteoporosis. Osteoarthritis. CAD. Bilateral eye.Shingles. Basal cell carci noma, head. Hay fever SURGICAL HISTORY : CABG. Craniotomy. CABG. Coronary artery stent. Bilateral cataract extraction. Cardiac ENCOUNTER: Initial ACUITY: 1 day PAIN SCORE: 0/10 LOCATION: Bilateral chest FINDINGS: A single view of the chest demonstrates a moderate left pleural effusion and left basilar density. Ca rdiomegaly and previous median sternotomy. Osseous structures are intact. CONCLUSION: 1. Moderate left pleural effusion and left basilar density likely atelectasis. 2. Cardiomegaly and previous CABG. Fran Jose MD on November 20, 2016 at 11:45 Board Certified Radiologist. This report was verified electronically.
[2016-11-20 11:50] LABS: ALKALINE PHOSPHATASE 97 U/L (45-117); CREATINE KINASE 642 U/L (39-308); TOTAL BILIRUBIN ADULT 0.6 MG/DL (0.2-1.0)
[2016-11-20 12:02] LABS: CKMB 5.2 NG/ML (0.5-3.6)
[2016-11-20 13:49] LABS: CALCIUM-PROTEIN CORRECTED 5.8 MG/DL (8.5-10.1)
[2016-11-20] MEDS ORDERED: NALOXONE HCL 0.4 MG/ML AMP IV PRN (14:00)
[2016-11-20] MEDS ORDERED: ACETAMINOPHEN 325 MG TAB PO PRN (14:00)
[2016-11-20] MEDS ORDERED: MAGNESIUM HYDROXIDE SUSP 30 ML CUP PO PRN (14:00)
[2016-11-20] MEDS ORDERED: MAGNESIUM SULFATE 1 GM PREMIX 100 ML IV ONE (14:15)
--- NOTE | 2016-11-20 14:42 | HHI.HP ---
[facility] Primary Care Physician Luis Angel Beasley M.D. Admission Diagnosis Hypocalcemia, prolong QTc, elevated troponin Diagnoses: Chief Complaint: Generalized weakness, hypercalcemia, and lower extremity edema Travel History International Travel<30 Days: No Contact w/Intl Traveler <30 Da: No Traveled to Known Affected Are: No History of Present Illness This is a 76-year-old male with a 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 Patient was admitted to the hospital in August 2016 for pneumonia and he stated after discharge he was doing well. About one month ago patient developed generalized weakness and lower extremity edema and scrotal edema. He stated that he also had chest pain that started about 3 months ago in which he described as sharp like, occurring for a couple minutes, resolving on its own. At that time he said he had no diaphoresis, nausea vomiting. Patient stated that this happens about 3-4 times a week. At the moment he has no chest pain. Due to severe lower see me edema he increase his Lasix from 40 mg to 60 mg every oh daily. He stated that this helped his edema a lot. Patient also has scrotal edema and which he saw his urologist Dr. Lee and stated that he had epididymitis and was treated with Levaquin. He was told that he needs a total of about 1 month of treatment. Patient does have a history of multiple UTIs. Testicular ultrasound was also ordered as outpatient. Patient saw his PCP on Saturday in regards to his labs. He was told that he had hypocalcemia in which his calcium was 4. He was put on 1 g of calcium carbonate. At that time a renal ultrasound was ordered and oracle brm developer was consulted as outpatient. Patient stated because of his severe weakness he is unable to walk. Patient was ambulating after discharge and has not been able to walk the past few weeks. He denied any muscle weakness but stated that is more for generalized weakness/fatigue. Denied any fecal or urinary incontinence. Patient's daughter and are at the bedside. Review of Systems Constitutional: COMPLAINS OF: Fatigue, DENIES: Diaphoretic episodes, Fever, Weight gain, Weight loss, Chills, Dizziness, Change in appetite, Night Sweats Endocrine: DENIES: Heat/cold intolerance, Polydipsia, Polyuria, Polyphagia Eyes: DENIES: Blurred vision, Diplopia, Eye inflammation, Eye pain, Vision loss , Photosensitivity, Double Vision Ears, nose, mouth, throat: DENIES: Tinnitus, Hearing loss, Vertigo, Nasal discharge, Oral lesions, Throat pain, Hoarseness, Ear Pain, Running Nose, Epistaxis, Sinus Pain, Toothache, Odynophagia Respiratory: DENIES: Apneas, Cough, Snoring, Wheezing, Hemoptysis, Sputum production, Shortness of breath Cardiovascular: COMPLAINS OF: Chest pain, Lower Extremity Edema Gastrointestinal: DENIES: Abdominal pain, Black stools, Bloody stools, Constipation, Diarrhea, Nausea, Vomiting, Difficulty Swallowing, Anorexia Genitourinary: COMPLAINS OF: Testicular Swelling, DENIES: Sexual dysfunction, Urinary frequency, Urinary incontinence, Urgency, Hematuria, Dysuria, Nocturia, Penile Discharge, Testicular Pain Musculoskeletal: DENIES: Joint pain, Muscle aches, Stiffness, Joint Swelling, Back pain, Neck pain Integumentary: DENIES: Abnormal pigmentation, Nail changes, Pruritus, Rash Hematologic/lymphatic: DENIES: Bruising, Lymphadenopathy Immunologic/allergic: DENIES: Eczema, Urticaria Neurologic: DENIES: Abnormal gait, Headache, Localized weakness, Paresthesias, Seizures, Speech Problems, Tremor, Poor Balance Psychiatric: DENIES: Anxiety, Confusion, Mood changes, Depression, Hallucinations, Agitation, Suicidal Ideation, Homicidal Ideation, Delusions Past Family Social History Past Medical History A. fib not on any anticoagulant secondary to hemorrhagic stroke in 2012 CVA 2012 DM 2 Kidney transplant Skin cancer Past Surgical History CKD Cardiac stents CABG Kidney transplant in 1998 Parathyroidectomy Craniotomy Penile implant Eye surgery Reported Medications Finasteride (Finasteride (Alopecia)) 1 Mg Tab 5 Mg PO DAILY Levofloxacin 750 Mg Tablet 750 Mg PO DAILY Calcium (Oyster Shell) 500 Mg Tab 1,000 Mg PO DAILY Albuterol Neb (Albuterol Sulfate) 2.5 Mg/3 Ml Neb 2.5 Mg NEB TID NEB PRN Bethanechol 25 Mg Tab 25 Mg PO BID Lasix (Furosemide) 20 Mg Tab 60 Mg PO DAILY PRN Zofran (Ondansetron HCl) 8 Mg Tab 8 Mg PO Q6HR PRN Melatonin 10 Mg Tab 10 Mg PO HS Lortab (Hydrocodone-Acetaminophen) 5-325 Mg Tab 1 Tab PO QID PRN Novolin 70-30 Inj (Insulin Human Isoph/Insulin Regular) 26 units in a.m. and 18 units at night. Keppra (Levetiracetam) 500 Mg Tab 500 Mg PO BID Singulair (Montelukast Sodium) 10 Mg Tab 10 Mg PO DAILY Fluticasone 50 g 2 puffs once a day in each nostril Potassium tablets 10 mEq extended release daily Lidocaine gel apply to affected area twice a day Ativan 0.5 mg when necessary Allergies: Coded Allergies: Haldol (Verified Allergy, Severe, Confusion, 11/19/16) Trileptal (Verified Allergy, Severe, 11/19/16) Active Ordered Medications Current Medications Sodium Chloride 2 ml 2 ml UNSCH PRN IVF FLUSH AFTER USING IV ACCESS; Start at 10:45 Calcium Gluconate 1 gm/Dextrose 110 ml @ 110 mls/hr ONCE ONCE IV Last administered on 11/20/16t 12:24; Start 11/20/16 at 11:00; Stop 11/20/16 at 11:59 ; Status DC Calcium Gluconate/ Dextrose (Calcium Gluconate Inj/D5W 100 ml Inj) 110 ml @ 110 mls/hr ONCE ONCE IV ; Start 11/20/16 at 14:00; Stop 11/20/16 at 14:59 Sodium Chloride (NS Flush) 2 ml UNSCH PRN IV FLUSH FLUSH AFTER USING IV ACCESS ; Start 11/20/16 at 14:00 Sodium Chloride (NS Flush) 2 ml BID IV FLUSH ; Start 11/20/16 at 21:00 Acetaminophen (Tylenol) 650 mg Q4H PRN PO TEMP > 100.4; Start 11/20/16 at 14:00 Naloxone HCl (Narcan Inj) 0.4 mg UNSCH PRN IV SEE LABEL COMMENTS; Start at 14:00 Magnesium Hydroxide (Milk Of Magnesia Liq) 30 ml Q12H PRN PO MILD - MODERATE CONSTIPATION; Start 11/20/16 at 14:00 Calcium Carbonate 1000 mg 1,000 mg BID PO ; Start 11/20/16 at 14:15 Magnesium Sulfate/ Dextrose 100 ml @ 100 mls/hr ONCE ONCE IV ; Start 11/20/16 at 14:15; Stop 11/20/16 at 15:14 Calcium Chloride 10 gm/Sodium Chloride 1,100 ml @ 50 mls/hr Q22H IV ; Start at 14:15; Status UNV Ceftriaxone Sodium/Sodium Chloride (Rocephin Inj/NS Inj) 100 ml @ 200 mls/hr Q24H IV ; Start 11/20/16 at 15:00 Family History Mother had a history of hypertension Grandmother history of diabetes Father was healthy. Social History Patient was at home with his . Denies any alcohol, tobacco, illicit drug use. Physical Exam Vital Signs Vital Signs Date Time Temp Pulse Resp B/P Pulse Ox O2 Delivery O2 Flow Rate FiO2 11/20/16 13:15 98 Nasal Cannula 11/20/16 13:15 73 26 103/63 97 Nasal Cannula 2 11/20/16 12:06 75 16 92/53 96 Room Air 11/20/16 10:59 97 Nasal Cannula 2 11/20/16 10:59 97 Room Air 2 11/20/16 10:28 97.7 77 18 125/60 91 Physical Exam GENERAL: This is a frail male in NAD SKIN: No rashes. Cool and dry. B/L ext erythematous changes due to stasis. No warmth noted. HEAD: Atraumatic. Normocephalic. No temporal or scalp tenderness. EYES: Pupils equal round and reactive. Extraocular motions intact. No scleral icterus. No injection or drainage. ENT: Nose without bleeding, purulent drainage or septal hematoma. Throat without erythema, tonsillar hypertrophy or exudate. Uvula midline. Airway patent. NECK: Trachea midline. No JVD or lymphadenopathy. Supple, nontender, no meningeal signs. CARDIOVASCULAR: Irregular rate and irregular rhythm without murmurs, gallops, or rubs. White scar tissue mid chest. RESPIRATORY: Clear to auscultation. Breath sounds equal bilaterally. No wheezes , rales, or rhonchi. GASTROINTESTINAL: Abdomen soft, non-tender, nondistended. No hepato-splenomegaly , or palpable masses. No guarding. MUSCULOSKELETAL: Extremities without clubbing, cyanosis. Trace lower extremity edema from the foot to edition. No joint tenderness, effusion, or edema noted. No calf tenderness. Negative Homans sign bilaterally. NEUROLOGICAL: Awake and alert. Cranial nerves II through XII intact. Motor and sensory grossly within normal limits. Five out of 5 muscle strength in all muscle groups. Normal speech. Pelvic: Scrotal area with erythema and swelling. Laboratory Laboratory Tests Test 11/20/16 11/20/16 10:45 13:15 White Blood Count 9.5 Red Blood Count 5.81 Hemoglobin 14.6 Hematocrit 47.1 Mean Corpuscular Volume 81.1 Mean Corpuscular Hemoglobin 25.2 Mean Corpuscular Hemoglobin 31.1 Concent Red Cell Distribution Width 18.5 Platelet Count 135 Mean Platelet Volume 8.8 Neutrophils (%) (Auto) 76.1 Lymphocytes (%) (Auto) 7.0 Monocytes (%) (Auto) 16.1 Eosinophils (%) (Auto) 0.4 Basophils (%) (Auto) 0.4 Neutrophils # (Auto) 7.2 Lymphocytes # (Auto) 0.7 Monocytes # (Auto) 1.5 Eosinophils # (Auto) 0.0 Basophils # (Auto) 0.0 CBC Comment DIFF FINAL Differential Comment Prothrombin Time 14.5 Prothromb Time International 1.3 Ratio Activated Partial 37.1 Thromboplast Time B-Type Natriuretic Peptide 361 Sodium Level 135 Potassium Level 4.4 Chloride Level 96 Carbon Dioxide Level 30.5 Anion Gap 9 Blood Urea Nitrogen 41 Creatinine 1.95 Estimat Glomerular Filtration 34 Rate Random Glucose 169 Calcium Level LESS THAN 5.0 Protein Corrected Calcium 5.8 Magnesium Level 1.8 Total Bilirubin 0.6 Aspartate Amino Transf 26 (AST/SGOT) Alanine Aminotransferase 16 (ALT/SGPT) Alkaline Phosphatase 97 Total Creatine Kinase 642 Creatine Kinase MB 5.2 Creatine Kinase MB % 0.8 Troponin I 0.11 Total Protein 5.1 Albumin 1.9 Result Diagram: 11/20/16 1045 11/20/16 1315 Imaging Last Impressions Chest X-Ray 11/20/16 1043 Signed Impressions: Service Date/Time: Sunday, November 20, 2016 11:01 - CONCLUSION: 1. Moderate left pleural effusion and left basilar density likely atelectasis. 2. Cardiomegaly and previous CABG. Fran Jose MD Course Patient given 2 g of calcium gluconate in the ED. Assessment and Plan Assessment and Plan 76-year-old male past medical history of coronary artery disease status post CABG, penile transplant, chronic kidney disease status post renal transplant, chronic hypocalcemia, type 2 diabetes insulin-dependent, chronic atrial fibrillation, BPH, and history of multiple intracranial bleed who presented with generalized weakness and scrotal/lower extremity edema Generalized weakness -Labs and imaging was obtained and reviewed. -most likely due to severe hypocalcemia and being volume overloaded. -see treatment as below. -Symptoms should improve with treatment, but will consult physical therapist. Severe hypocalcemia -Patient has a chronic history of intermittent hypocalcemia secondary to parathyroidectomy. He was recently put on calcium carbonate 1 g Daily by PCP. -EKG reviewed noted to have prolonged QT 468-503. -Potassium corrected is 5.8. -Patient given 2 grams of calcium gluconate in the ED. -We will get vitamin D level. Start patient on a continuous infusion with calcium gluconate 10 g and 1 L of normal saline at 50 cc/h. -Start patient on calcium carbonate 1 g twice a day. Will monitor closely on cardiac telemetry in the [facility]. Will decide tomorrow if patient still needs continuous infusion of calcium gluconate based on calcium levels. -His magnesium was 1.8 will replenish with 1 g of magnesium sulfate IV. -Continue to monitor closely. Prolonged QT -Most likely secondary to hypocalcemia. Patient was also taking Levaquin and Zofran at home. Will discontinue the medication for now since he has prolonged QT. -Patient will be monitor on telemetry. See treatment as above. Atypical chest pain -Patient does have a history of CABG. Chest pain sounds atypical occurring the last few months -Troponin mildly elevated at 0.11. Continue to trend. -Consult fisher purse seine since patient is high risk. -Patient had history of multiple intracranial bleed and he was told anticoagulation and antiplatelets are contraindicated for him. Epididymitis -Patient was treated with Levaquin by Dr. Lee his urologist. -He requested a testicular ultrasound. Will place order. -At the moment cannot treat the Levaquin due to prolonged QT. Will start Rocephin and get UA. -We will consult urologist. Acute on chronic renal failure -History of renal transplant, kidney given by his son. -May be secondary to diabetic nephropathy and is exacerbated by BPH obstruction. -will get a renal ultrasound. -Avoid nephrotoxins. -Will consult oracle brm developer. -Patient is on Lasix due to being volume overloaded. Left-sided pleural effusion -Per patient he is asymptomatic. -Admitted in August 2015 due to left-sided pneumonia. -We will get an echo. -Continue to monitor clinically. -Give Lasix 40 mg IV twice a day. Home dose of 60 mg by mouth daily. Lower extremity edema -Improved. -Patient is on Lasix 60 mg by mouth twice a day. -Due to pleural effusion and edema will give 40 mg IV twice a day. -Strict ins and outs. History of intracranial bleed -Patient is on Keppra for prophylaxis. -Continue with Keppra. Persistent atrial fibrillation -Anticoagulation or antiplatelets contraindicated in patient. -rate is controlled. 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 and 18 units at night. -Since patient has decreased by mouth intake will start at a lower dose. -Also start insulin sliding scale with hypoglycemic protocol. Chronic back pain/allergic rhinitis -Resume home medication. DVT prophylaxis -SCDs Spent 45 minutes in the management of patient's care. Code Status full Discussed Condition With patient, his and his daughter Physician Certification 2 Midnight Certification Type: Admission for Inpatient Services Order for Inpatient Services The services are ordered in accordance with Medicare regulations or non- Medicare payer requirements, as applicable. In the case of services not specified as inpatient-only, they are appropriately provided as inpatient services in accordance with the 2-midnight benchmark. Estimated LOS (days): 3 3 days is the estimated time the patient will need to remain in the hospital, assuming treatment plan goals are met and no additional complications. Post-Hospital Plan: Not yet determined Meme Reynolds MD Nov 20, 2016 14:42
[2016-11-20] MEDS ORDERED: GLUCAGON 1 MG/ML VIAL OTHER PRN (14:45)
[2016-11-20] MEDS ORDERED: DEXTROSE 50% IN WATER 50 ML VIAL(D50) IV PRN (14:45)
[2016-11-20] MEDS: SODIUM CHLOR 0.9% IV SCH (15:32)
[2016-11-20] MEDS: CALCIUM CHLORIDE IV SCH (15:32)
[2016-11-20] MEDS ORDERED: ASPIRIN 81 MG CHEW TAB PO SCH (15:45)
[2016-11-20] MEDS: ASPIRIN 81 MG CHEW TAB CHEW SCH (16:00)
--- NOTE | 2016-11-20 16:41 | ECHRPT ---
Indication: heart failure CONCLUSIONS Normal left ventricular size. Wall thickness is normal. The left ventricular systolic function is [id number] reduced with an estimated ejection fra ction in the range of 35-40%. There is hypokinesis with distinct regional wall motion abnormalities. The right ventricle is mildly dilated. The right ventricular systoilc function is moderately decreased. The right atrial size is mildly dilated. Moderate mitral annular calcification. Aortic valve sclerosis is present. There is mild tricuspid valve regurgitation. There is estimated mild pulmonary hypertension present (53 mmHg). A large left sided pleural effusion is noted. BP: 103 / 63 HR: 73 Rhythm: MEASUREMENTS (Male / Female) Normal Values Technical Quality: 2D ECHO LV Diastolic Diameter PLAX 4.2 cm 4.2 - 5.9 / 3.9 - 5.3 cm LV Systolic Diameter PLAX 3.5 cm IVS Diastolic Thickness 1.0 cm 0.6 - 1.0 / 0.6 - 0.9 cm LVPW Diastolic Thickness 0.8 cm 0.6 - 1.0 / 0.6 - 0.9 cm LV Relative Wall Thickness 0.4 RV Internal Dim ED PLAX 2.4 cm LA Systolic Diameter LX 4.0 cm 3.0 - 4.0 / 2.7 - 3.8 cm DOPPLER Mitral E Point Velocity 71.1 cm/s Mitral A Point Velocity 34.6 cm/s Mitral E to A Ratio 2.1 TR Peak Velocity 365.0 cm/s TR Peak Gradient 53.3 mmHg FINDINGS LEFT VENTRICLE Normal left ventricular size. Wall thickness is normal. The left ventricular systolic function is [id number] reduced with an estimated ejection fra ction in the range of 40%. There is hypokinesis with distinct regional wall motion abnormalities. RIGHT VENTRICLE The right ventricle is mildly dilated. The right ventricular systoilc function is moderately decreased. LEFT ATRIUM The left atrial size is normal. RIGHT ATRIUM The right atrial size is mildly dilated. ATRIAL SEPTUM Normal atrial septal thickness without atrial level shunting by limited color doppler interrogation. AORTA The aortic root and proximal ascending aorta are normal in size on limited imaging. MITRAL VALVE Mild mitral valve regurgitation. Mild mitral annular calcification. AORTIC VALVE Aortic valve sclerosis is present. TRICUSPID VALVE There is mild to moderate tricuspid valve regurgitation. There is estimated mild pulmonary hypertension present (53 mmHg). PULMONARY VALVE The pulmonary valve is not well visualized. VESSELS The inferior vena cava is normal in size. PERICARDIUM A large left sided pleural effusion is noted. Jone Gray MD (Electronically Signed) Final Date:20 November 2016 16:41
[2016-11-20] MEDS: INSULIN ASPART SUPPLEMENTAL SCALE SQ SCH ×2 (16:53→21:00)
[2016-11-20] MEDS: INSULIN HUMAN NPH/R 70/30 1,000 UNITS/10 ML VIAL SQ SCH (17:00)
--- NOTE | 2016-11-20 17:08 | EKG ---
Date Performed: 11/20/2016 Time Performed: 10:53:32 PTAGE: 76 years EKG: POSSIBLE Sinus rhythm WITH FIRST DEGREE AV BLOCK WITH PACs INDETERMINATE AXIS POSSIBLE ANTERIOR MYOCARDIAL INFARCTION ABNO RMAL ECG PREVIOUS TRACING : 08/28/2016 16.27 No significant change from previous tracing noted. DOCTOR: Pastor Jackson Interpretating Date/Time 11/20/2016 17:05:59
--- NOTE | 2016-11-20 17:50 | MB ---
cc: YOBANY ALEXANDER M.D. Corrected Copy: 11/22/16 DATE OF CONSULTATION: 11/20/2016 REASON FOR CONSULTATION: Evaluation of elevated troponin. HISTORY OF PRESENT ILLNESS: Joselito Olson is a 76-year-old man who use to be followed by Dr. Pearson but has not been followed by him in a long time. He has multiple severe medical problems. He was brought in by his with complaints of generalized weakness, inability to ambulate as well as he had in the past and it is noted. He has had severe swelling. He had swelling in his legs and also has a large left pleural effusion on his chest x-ray. The patient has known coronary disease. Per his , he has occasional chest pain, particularly if agitated or excited. He did have some chest pain this morning. He does not have any chest pain now. The troponins are minimally elevated at 0.11. He has known coronary artery disease. He had a four-vessel bypass in 1993, he had a stent 1997. He has had no followup cardiac procedures. His mental status is reduced. He has a very poor short-term memory and a very sedentary lifestyle. This on the basis of having a subdural hematoma May 2010, intracranial hemorrhage in 2011. He has chronic atrial fibrillation but not on anticoagulation because of the previous bleeds and falls. PAST MEDICAL HISTORY: Includes 1. Chronic Atrial fibrillation. 2. Hemorrhagic stroke, and previous intracranial hemorrhage, and previous subdural. 3. Type 2 diabetes. 4. Renal transplant in 1998 with the son as a donor but does not follow with a explosive ordnance specialist. 5. Carotid disease. 6. Degenerative joint disease. 7. Previous seizures. 8. Hypertension. 9. Hypocalcemia with a mention of hypoparathyroidism. SOCIAL HISTORY: He is , nonsmoker, nondrinker. ALLERGIES Include TRILEPTAL HALDOL PAST SURGICAL HISTORY: Includes 1. Resection of frontal meningioma. 2. Penile implant. 3. Bilateral retinal surgery. 4. 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 REVIEW OF SYSTEMS Otherwise noncontributory. PHYSICAL EXAMINATION: IN GENERAL: Reveals a pleasant white male in no acute distress. VITAL SIGNS Are charted. Blood pressure runs somewhat low. He is in a fib with a controlled rate on telemetry. HEAD, EARS, EYES, NOSE, AND THROAT: Exam unremarkable. NECK: Shows no JVD, no bruits. CHEST: The chest shows diminished breath sounds at the left base. CARDIOVASCULAR SYSTEM: Cardiac exam shows distant S1-S2, a regular rate and rhythm. No murmurs, gallops appreciated. ABDOMEN: The abdomen is soft. EXTREMITIES: The extremities revealed edema to the thighs that is pitting. NEUROLOGICALLY: He is alert, not clear of how alert and oriented he is. LABORATORY BUN is 41, creatinine 1.95, calcium less than 5.0, troponin is elevated to 0.11, albumin depressed at 1.9, hematocrit 47.1 with an elevated RDW, diminished platelet count. RADIOLOGIC: Chest x-ray shows a moderate left pleural effusion. IMPRESSION/PLAN This is a 76-year-old man with known ischemic heart disease. He has a left bundle-branch block, chronic atrial fibrillation. He has a prolonged QT from hypocalcemia most likely. The troponin is minimally elevated. I really cannot elicit a history of a myocardial infarction type symptoms. He does have occasional chest pain. He is not a particularly a good candidate for any type of invasive evaluation; we will try to treat him medically. I am concerned about the fairly low blood pressure, being on anasarca with a diminished albumin. Renal has been consulted and this will be very important. I am going to recheck troponin levels in the morning. Echo has been ordered. He has been started on IV Lasix. Further therapy to be determined. MD MONIK Bassett/neville /3:40 PM /12:19 PM
[2016-11-20] MEDS: FUROSEMIDE 20 MG/2 ML VIAL IV PUSH SCH (18:37)
[2016-11-20] MEDS: cefTRIAXone INJ 1,000 MG in SODIUM CHLORIDE 0.9% INJ 100 ML IV SCH (18:38)
[2016-11-20] MEDS: CALCIUM CARBONATE 1.25 GM (CA 500 MG) TAB PO SCH ×2 (18:38→21:23)
--- NOTE | 2016-11-20 18:55 | PD.CONS ---
HPI Service Nephrology Consult Requested By Dr. Reynolds Reason for Consult DEJA, fluid overload Primary Care Physician Luis Angel Beasley M.D. History of Present Illness The patient is a 76 yo [place] male who was brought to this facility for evaluation of extensive fluid retention. and family are the primary historians as he has some baseline dementia s/p CVA. Has been following his PCP, Dr. Beasley, for fluid retention. Was admitted in August for PNA and reports that he has had fluid retention since then. Was started on Lasix 40mg BID and was increased about 3 weeks ago to 60mg BID with only minimal response. He is a LRD kidney transplant patient in 1998 from his son and has not been on any immunosuppressives for a number of years according to his . His initial cause of renal failure is diabetes and was a HD via permacath for a few months before his transplant. According to family, his renal functions have been stable for his entire post-transplant life. Other PMHx of CAD s/p CABG, no known hx of CHF, DM, HTN, BPH without obstruction. No NSAID use. Admitting SCr of 1.94. August 2016 was 1.34 Prior levels have fluctuated between 0.8-1.5 (Sarah Carbajal) Review of Systems Cardiovascular: COMPLAINS OF: Dyspnea on Exertion, Lower Extremity Edema ( Sarah Carbajal) Past Family Social History Allergies: Coded Allergies: Haldol (Verified Allergy, Severe, Confusion, 11/19/16) Trileptal (Verified Allergy, Severe, 11/19/16) Past Medical History Previous ESRD related to diabetic nephropathy temporarily on HD in 1998. LRD transplant status (from son) in [place]. Not on immunosuppressives DM HTN CVA x2 Meningioma s/p resection Hx of intracranial hemorrhage Atrial fibrillation Skin cancer Past Surgical History Kidney transplant in 1998 CABG Parathyroidectomy Craniotomy Penile implant Eye surgery Reported Medications Reported Meds & Active Scripts Active Finasteride (Finasteride (Alopecia)) 1 Mg Tab 5 Mg PO DAILY Levofloxacin 500 Mg Tablet 500 Mg PO DAILY Reported Calcium (Oyster Shell) 500 Mg Tab 1,000 Mg PO DAILY Albuterol Neb (Albuterol Sulfate) 2.5 Mg/3 Ml Neb 2.5 Mg NEB TID NEB PRN Bethanechol 25 Mg Tab 25 Mg PO BID Lasix (Furosemide) 20 Mg Tab 60 Mg PO DAILY PRN Zofran (Ondansetron HCl) 8 Mg Tab 8 Mg PO Q6HR PRN Melatonin 10 Mg Tab 10 Mg PO HS Lortab (Hydrocodone-Acetaminophen) 5-325 Mg Tab 1 Tab PO QID PRN Novolin 70-30 Inj (Insulin Human Isoph/Insulin Regular) 1,000 Unit/10 Ml Vial SQ TIDAC Sliding scale as directed Keppra (Levetiracetam) 500 Mg Tab 500 Mg PO BID Singulair (Montelukast Sodium) 10 Mg Tab 10 Mg PO DAILY Active Ordered Medications Current Medications Medications (Trade) Dose Ordered Sig/Tj Route Start Time Stop Time Status Last Admin (NS Flush) 2 ml UNSCH PRN IVF 11/20/16 10:45 (NS Flush) 2 ml UNSCH PRN IV FLUSH 11/20/16 14:00 (NS Flush) 2 ml BID IV FLUSH 11/20/16 21:00 (Tylenol) 650 mg Q4H PRN PO 11/20/16 14:00 (Narcan Inj) 0.4 mg UNSCH PRN IV 11/20/16 14:00 (Milk Of Magnesia Liq) 30 ml Q12H PRN PO 11/20/16 14:00 Calcium Carbonate 1000 mg 1,000 mg BID PO 11/20/16 14:15 Calcium Chloride 10 gm/Sodium Chloride 1,000 ml @ 50 mls/hr Q20H IV 11/20/16 15:00 11/20/16 15:32 (Rocephin Inj/NS Inj) 100 ml @ 200 mls/hr Q24H IV 11/20/16 15:00 (Lasix Inj) 40 mg BID@09,18 IV PUSH 11/20/16 18:00 (D50w (Vial) Inj) 50 ml UNSCH PRN IV 11/20/16 14:45 (Glucagon Inj) 1 mg UNSCH PRN OTHER 11/20/16 14:45 (Nitroglycerin 2% Oint) 0.5 inch Q8HR TOPICAL 11/20/16 22:00 (NovoLIN 70/30 INJ) 10 units DAILY@08 SQ 11/21/16 08:00 (NovoLIN 70/30 INJ) 5 units DAILY@17 SQ 11/20/16 17:00 (Aspirin Chew) 81 mg DAILY CHEW 11/20/16 16:00 (Urecholine) 25 mg BID PO 11/20/16 21:00 ([place] 5-325 Mg) 1 tab QID PRN PO 11/20/16 16:00 (Keppra) 500 mg BID PO 11/20/16 21:00 (Singulair) 10 mg DAILY PO 11/21/16 09:00 (Proscar) 5 mg DAILY PO 11/21/16 09:00 (Melatonin) 10 mg HS PO 11/20/16 21:00 Family History NC Social History . Lives locally with his Denies tobacco use No illicits No EtOH (Sarha Carbajal) Physical Exam Vital Signs Vital Signs Date Time Temp Pulse Resp B/P Pulse Ox O2 Delivery O2 Flow Rate FiO2 11/20/16 13:15 98 Nasal Cannula 11/20/16 13:15 73 26 103/63 97 Nasal Cannula 2 11/20/16 12:06 75 16 92/53 96 Room Air 11/20/16 10:59 97 Nasal Cannula 2 11/20/16 10:59 97 Room Air 2 11/20/16 10:28 97.7 77 18 125/60 91 Physical Exam GENERAL: Pleasantly confused. NAD. On O2 via [place] SKIN: Warm and dry. HEAD: Atraumatic. Normocephalic. EYES: Pupils equal and round. No scleral icterus. No injection or drainage. ENT: No nasal bleeding or discharge. Mucous membranes pink and moist. NECK: Trachea midline. No JVD. CARDIOVASCULAR: Irregularly irregular RESPIRATORY: No accessory muscle use. Diminished breath sounds throughout but worse L lung GASTROINTESTINAL: Abdomen soft, but with edema present abdominal wall MUSCULOSKELETAL: Extremities without clubbing, cyanosis, significant 2-3+ pitting edema BLE up to thighs and hips. 1+ abdominal wall. NEUROLOGICAL: Awake and alert. Normal speech. PSYCHIATRIC: Appropriate mood and affect; insight and judgment normal. Laboratory Laboratory Tests Test 11/20/16 11/20/16 11/20/16 10:45 13:13 13:15 White Blood Count 9.5 Red Blood Count 5.81 Hemoglobin 14.6 Hematocrit 47.1 Mean Corpuscular Volume 81.1 Mean Corpuscular Hemoglobin 25.2 Mean Corpuscular Hemoglobin 31.1 Concent Red Cell Distribution Width 18.5 Platelet Count 135 Mean Platelet Volume 8.8 Neutrophils (%) (Auto) 76.1 Lymphocytes (%) (Auto) 7.0 Monocytes (%) (Auto) 16.1 Eosinophils (%) (Auto) 0.4 Basophils (%) (Auto) 0.4 Neutrophils # (Auto) 7.2 Lymphocytes # (Auto) 0.7 Monocytes # (Auto) 1.5 Eosinophils # (Auto) 0.0 Basophils # (Auto) 0.0 CBC Comment DIFF FINAL Differential Comment Prothrombin Time 14.5 Prothromb Time International 1.3 Ratio Activated Partial 37.1 Thromboplast Time B-Type Natriuretic Peptide 361 25-Hydroxy Vitamin D Total 5.0 Sodium Level 135 Potassium Level 4.4 Chloride Level 96 Carbon Dioxide Level 30.5 Anion Gap 9 Blood Urea Nitrogen 41 Creatinine 1.95 Estimat Glomerular Filtration 34 Rate Random Glucose 169 Calcium Level LESS THAN 5.0 Protein Corrected Calcium 5.8 Magnesium Level 1.8 Total Bilirubin 0.6 Aspartate Amino Transf 26 (AST/SGOT) Alanine Aminotransferase 16 (ALT/SGPT) Alkaline Phosphatase 97 Total Creatine Kinase 642 Creatine Kinase MB 5.2 Creatine Kinase MB % 0.8 Troponin I 0.11 Total Protein 5.1 Albumin 1.9 (Sarah Carbajal) Result Diagram: 11/20/16 1045 11/20/16 1315 Imaging Last Impressions Chest X-Ray 11/20/16 1043 Signed Impressions: Service Date/Time: Sunday, November 20, 2016 11:01 - CONCLUSION: 1. Moderate left pleural effusion and left basilar density likely atelectasis. 2. Cardiomegaly and previous CABG. Fran Jose MD (Sarah Carbajal) Assessment and Plan Problem List: (1) DEJA (acute kidney injury) Plan: Review of labs for the past several years shows a varying SCr between 1.1 -1.5. His current renal decline is likely related to some degree of cardiorenal syndrome. He has not been on immunosuppressives for some time according to his , and uncertain if there is any component of rejection at this time. Will try to get records from his primary care physician regarding transplant information. He is significantly fluid overloaded and has been started on IV diuresis. Discussed with the patient and his family that sometimes the renal functions will decline with diuresis, but it is necessary. Labs ordered for the AM. Renal US pending, but reviewed outpatient US that was done in August. Will follow. Medications should be adjusted for the patient's renal decline. Avoid nephrotoxic medications including NSAIDs and iodinated contrast dyes. Avoid gadolinium when eGFR <30. (2) Kidney transplant status, living related donor Plan: Transplanted in 1998 LRD. Was on immunosuppressives, but has not been on for some years as per the . Will try to get records from his transplant facility in [place]. May request opinion from Dr. Castaneda regarding resumption of immunosuppressives. (3) Anasarca Plan: IV Lasix 40mg q12h. Add albumin IV given his relatively low BP and hypoalbuminemia. KCl repletion if needed. Reviewed echo. EF of 40%, mild-mod TR, aortic sclerosis, mild pulmonary hypertension Monitor I&Os (4) Hypocalcemia Plan: Being repleted IV. Vit D level low. Start on Ergocalciferol once weekly. Check iPTH. s/p parathyroidectomy (5) Vitamin D deficiency Plan: Repletion as ordered (6) DM2 (diabetes mellitus, type 2) Plan: Mgmt as per primary (7) Hypertension Plan: As per hx. Hypotensive in house. Medications held. (Sarah Carbajal) Assessment and Plan Patient apparently has been of immunosuppressive therapy for some years now. This is a first encounter with this patient. We'll screen for secondary hyperparathyroidism. Continue ergocalciferol as ordered for vitamin D supplementation. We'll also screen for significant proteinuria given the presence of hypoalbuminemia and significant dependent edema. Agree with diuretic therapy. I will add albumin in view of the presence of hypoalbuminemia and a relatively lower blood pressure. The exam, history, and the medical decision-making described in the above note were completed with the assistance of the PA-C. I reviewed and agree with the findings presented. I attest that I had a [id number] encounter with the patient on the same day, and personally performed and documented my assessment and findings in the medical record. (Lizz Pro MD) Sarah Carbajal Nov 20, 2016 18:55 Lizz Pro MD Nov 20, 2016 19:11
--- NOTE | 2016-11-20 20:23 | RADRPT ---
EXAM DATE/TIME: 11/20/2016 16:52 [facility] COMPARISON: No previous studies available for comparison. INDICATIONS : Scrotal swelling. MEDICAL HISTORY : Arthritis. Diabetes mellitus type 2. Eye neuropathy. Renal failure. Seizures. Basal cell carcinoma. C VA. SURGICAL HISTORY : Cataract surgery. Craniotomy 2013. Penile implant. Renal transplant. Parathyroidectomy. ENCOUNTER: Initial ACUITY: 1 month PAIN SCORE: 10/10 LOCATION: Bilateral testicles. MEASUREMENTS: RIGHT TESTICLE: 3.2 x 2.4 x 2.2cm LEFT TESTICLE: 2.8 x 2.4 x 2.0cm FINDINGS: No testicular masses. Normal testicular size. There is marked thickening of the scrotal skin up to 2.7 cm on the right and 2.6 cm on the left. Righ t epididymis is mildly heterogeneous. No epididymal mass. Small hydroceles. Mild left varicocele. CONCLUSION: 1. No testicular masses. 2. Marked scrotal skin thickening. Small hydroceles. Mild left varicocele. Kirby Kyle MD on November 20, 2016 at 20:18 Board Certified Radiologist. This report was verified electronically.
--- NOTE | 2016-11-20 20:46 | RADRPT ---
EXAM DATE/TIME: 11/20/2016 16:29 [facility] COMPARISON: No previous studies available for comparison. INDICATIONS : Increased labs. MEDICAL HISTORY : Arthritis. Diabetes mellitus type 2. Eye neuropathy. Renal failure. Seizures. Basal cell carcinoma. CVA. SURGICAL HISTORY : Cataract surgery. Crainiotomy 2013. Penile implant. Renal transplant. Parathyroidectomy. ENCOUNTER: Subsequent ACUITY: 1 day PAIN SCORE: 3/10 LOCATION: Bilateral flank MEASUREMENTS: RIGHT KIDNEY: 6.8 x 3.7 x 4.5 cm Not visualized cm FINDINGS: There is mild ascites and also a right pleural effusion. Right kidney is atrophic and the left kidney is not clearly visualized. There is a transplant kidney in the right lower quadrant measuring 10.5 x 5.6 x 6.5 cm. No hydronephrosis in the transplant kidney. Bladder unremarkable. There is positive bl ood flow to the renal transplant. CONCLUSION: 1. Transplant kidney in the right lower quadrant. No hydronephrosis. Atrophic [place] right kidney. Le ft kidney not visualized. Ascites. Kirby Kyle MD on November 20, 2016 at 20:41 Board Certified Radiologist. This report was verified electronically.
[2016-11-20] MEDS: SODIUM CHLORIDE 0.9% FLUSH 10 ML FLUSH IV FLUSH SCH (21:00)
[2016-11-20] MEDS: BETHANECHOL CHL 25 MG TAB PO SCH (21:00)
[2016-11-20] MEDS: MELATONIN 5 MG TAB PO SCH (21:23)
[2016-11-20] MEDS: ALBUMIN HUMAN 25% 12.5 GM/50 ML BAGP IV SCH (21:23)
[2016-11-20] MEDS: NITROGLYCERIN 2% OINT 1 GM PACKET TOPICAL SCH (21:23)
[2016-11-20] MEDS: ERGOCALCIFEROL (VIT D2) 50,000 UNIT CAP PO SCH (21:23)
[2016-11-20] MEDS: levETIRAcetam 500 MG TAB PO SCH (21:23)
[2016-11-20] MEDS: RESP: ALBUTEROL 2.5 MG/3 ML NEB (PRN) NEB (21:29)
[2016-11-21] VITALS (19 sets, daily range): BP systolic 121–145; BP diastolic 56–85; PULSE 85–113; RESP 18–20; TEMP 97.4–98.8; O2SAT 95–98
[2016-11-21] MEDS: NITROGLYCERIN 2% OINT 1 GM PACKET TOPICAL SCH ×4 (06:00→22:59)
[2016-11-21 06:09] LABS: HEMATOCRIT 45.7 % (39.0-51.0); MEAN CELL VOLUME 81.1 FL (80.0-100.0); MEAN CORPUSCULAR HGB CONC 32.1 % (32.0-36.0); PLATELET COUNT 129 TH/MM3 (150-450); RED BLOOD COUNT 5.63 MIL/MM3 (4.50-5.90); RED CELL DISTRIBUTION WIDTH 18.4 % (11.6-17.2); REVIEW FLAG FINAL; WHITE BLOOD COUNT 8.4 TH/MM3 (4.0-11.0)
[2016-11-21 06:27] LABS: ANION GAP 12 MEQ/L (5-15); AST (GOT) 18 U/L (15-37); BICARBONATE 30.4 MEQ/L (21.0-32.0); BLOOD UREA NITROGEN 36 MG/DL (7-18); CHLORIDE 95 MEQ/L (98-107); GLOMERULAR FILTRATION RATE 47 ML/MIN (>89); MAGNESIUM 1.8 MG/DL (1.5-2.5); POTASSIUM 3.9 MEQ/L (3.5-5.1); SODIUM (NA) 137 MEQ/L (136-145)
[2016-11-21 06:28] LABS: ALT (GPT) 13 U/L (12-78)
[2016-11-21] MEDS: INSULIN ASPART SUPPLEMENTAL SCALE SQ SCH ×4 (06:30→21:00)
[2016-11-21 06:32] LABS: ALKALINE PHOSPHATASE 94 U/L (45-117); TOTAL BILIRUBIN ADULT 1.1 MG/DL (0.2-1.0)
[2016-11-21] MEDS: MONTELUKAST SODIUM 10 MG TAB PO SCH (08:08)
[2016-11-21] MEDS: ALBUMIN HUMAN 25% 12.5 GM/50 ML BAGP IV SCH ×2 (08:08→22:54)
[2016-11-21] MEDS: CALCIUM CARBONATE 1.25 GM (CA 500 MG) TAB PO SCH ×2 (08:09→22:52)
[2016-11-21] MEDS: ASPIRIN 81 MG CHEW TAB CHEW SCH (08:09)
[2016-11-21] MEDS: FINASTERIDE 5 MG TAB PO SCH (08:09)
[2016-11-21] MEDS: levETIRAcetam 500 MG TAB PO SCH ×2 (08:09→22:53)
[2016-11-21] MEDS: SODIUM CHLORIDE 0.9% FLUSH 10 ML FLUSH IV FLUSH SCH ×2 (08:10→22:53)
[2016-11-21] MEDS: FUROSEMIDE 20 MG/2 ML VIAL IV PUSH SCH ×2 (08:10→17:35)
[2016-11-21] MEDS: INSULIN HUMAN NPH/R 70/30 1,000 UNITS/10 ML VIAL SQ SCH ×2 (08:11→17:35)
[2016-11-21] MEDS: ACETAMINOPHEN/HYDROcodone 325 MG/5 MG TAB PO PRN ×3 (08:32→23:19)
[2016-11-21] MEDS: BETHANECHOL CHL 25 MG TAB PO SCH ×2 (09:00→22:53)
--- NOTE | 2016-11-21 09:47 | HHI.PR ---
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 About one month ago patient developed generalized weakness and lower extremity edema and scrotal edema. He stated that he also had chest pain that started about 3 months ago, He increased his Lasix from 40 mg to 60 mg every oh daily. He stated that this helped his edema a lot. Patient also has scrotal edema and which he saw his urologist Dr. Lee and stated that he had epididymitis and was treated with Levaquin. He was told that he needs a total of about 1 month of treatment. Patient does have a history of multiple UTIs. Testicular ultrasound was also ordered as outpatient. he has history of CVA 2012, DM II Kidney transplant. 11/21: Seen in his bedroom in the presence of his , discussed with nurse Miss Holloway His Creatinine is decreases from 1.95 to 1.45, he is receiving Albumin, Improving calcium levels with replacement but he had extravasation and has erythema on both arms secondary to Calcium, this drips were discontinued by Nephrology specialist and switch to by mouth Calcium No nausea, vomit or diarrhea. Objective Vital Signs Date Time Temp Pulse Resp B/P Pulse Ox O2 Delivery O2 Flow Rate FiO2 11/21/16 06:00 102 11/21/16 05:00 102 11/21/16 04:00 97.9 106 18 132/58 96 11/21/16 04:00 108 11/21/16 03:00 102 11/21/16 02:00 102 11/21/16 01:00 105 11/21/16 00:00 98.0 111 18 136/85 96 11/21/16 00:00 102 11/20/16 23:00 100 11/20/16 22:00 100 11/20/16 21:36 96 Nasal Cannula 2.00 11/20/16 21:00 96 11/20/16 20:00 97.9 95 18 120/70 96 11/20/16 20:00 89 11/20/16 19:00 94 11/20/16 18:30 105 11/20/16 18:30 97.0 105 18 143/84 99 11/20/16 13:15 98 Nasal Cannula 11/20/16 13:15 73 26 103/63 97 Nasal Cannula 2 11/20/16 12:06 75 16 92/53 96 Room Air 11/20/16 10:59 97 Nasal Cannula 2 11/20/16 10:59 97 Room Air 2 11/20/16 10:28 97.7 77 18 125/60 91 I/O 11/20/16 11/20/16 11/20/16 11/21/16 11/21/16 11/21/16 07:00 15:00 23:00 07:00 15:00 23:00 Intake Total 480 ml 740 ml Output Total 250 ml 850 ml Balance 230 ml -110 ml Intake Oral 480 ml 240 ml IV Total 500 ml Output Urine Total 250 ml 850 ml # Voids 1 Result Diagram: 11/21/16 0424 11/21/16 0424 Imaging Last Impressions Chest X-Ray 11/20/16 1043 Signed Impressions: Service Date/Time: Sunday, November 20, 2016 11:01 - CONCLUSION: 1. Moderate left pleural effusion and left basilar density likely atelectasis. 2. Cardiomegaly and previous CABG. Fran Jose MD Scrotum Ultrasound 11/20/16 0000 Signed Impressions: Service Date/Time: Sunday, November 20, 2016 16:52 - CONCLUSION: 1. No testicular masses. 2. Marked scrotal skin thickening. Small hydroceles. Mild left varicocele. Kirby Kyle MD Renal Ultrasound 11/20/16 0000 Signed Impressions: Service Date/Time: Sunday, November 20, 2016 16:29 - CONCLUSION: 1. Transplant kidney in the right lower quadrant. No hydronephrosis. Atrophic [place] right kidney. Left kidney not visualized. Ascites. Kirby Kyle MD Procedures No procedures performed. Other Results Laboratory Tests Test 11/20/16 11/20/16 11/20/16 11/21/16 10:45 13:13 13:15 04:24 Neutrophils (%) (Auto) 76.1 % Lymphocytes (%) (Auto) 7.0 % Monocytes (%) (Auto) 16.1 % Eosinophils (%) (Auto) 0.4 % Basophils (%) (Auto) 0.4 % Neutrophils # (Auto) 7.2 TH/MM3 Lymphocytes # (Auto) 0.7 TH/MM3 Monocytes # (Auto) 1.5 TH/MM3 Eosinophils # (Auto) 0.0 TH/MM3 Basophils # (Auto) 0.0 TH/MM3 CBC Comment DIFF FINAL Differential Comment Prothrombin Time 14.5 SEC Prothromb Time International 1.3 RATIO Ratio Activated Partial 37.1 SEC Thromboplast Time B-Type Natriuretic Peptide 361 PG/ML 25-Hydroxy Vitamin D Total 5.0 ng/ML Protein Corrected Calcium 5.8 MG/DL Total Creatine Kinase 642 U/L Creatine Kinase MB 5.2 NG/ML Creatine Kinase MB % 0.8 % White Blood Count 8.4 TH/MM3 Red Blood Count 5.63 MIL/MM3 Hemoglobin 14.7 GM/DL Hematocrit 45.7 % Mean Corpuscular Volume 81.1 FL Mean Corpuscular Hemoglobin 26.0 PG Mean Corpuscular Hemoglobin 32.1 % Concent Red Cell Distribution Width 18.4 % Platelet Count 129 TH/MM3 Mean Platelet Volume 8.7 FL Sodium Level 137 MEQ/L Potassium Level 3.9 MEQ/L Chloride Level 95 MEQ/L Carbon Dioxide Level 30.4 MEQ/L Anion Gap 12 MEQ/L Blood Urea Nitrogen 36 MG/DL Creatinine 1.45 MG/DL Estimat Glomerular Filtration 47 ML/MIN Rate Random Glucose 73 MG/DL Calcium Level 8.2 MG/DL Magnesium Level 1.8 MG/DL Total Bilirubin 1.1 MG/DL Aspartate Amino Transf 18 U/L (AST/SGOT) Alanine Aminotransferase 13 U/L (ALT/SGPT) Alkaline Phosphatase 94 U/L Troponin I 0.10 NG/ML Total Protein 5.1 GM/DL Albumin 2.1 GM/DL Parathyroid Hormone (Intact) 3.5 PG/ML Objective Remarks GENERAL: This is a frail male in NAD SKIN: No rashes. Cool and dry. B/L ext erythematous changes due to stasis. No warmth noted. HEAD: Atraumatic. Normocephalic. No temporal or scalp tenderness. EYES: Pupils equal round and reactive. Extraocular motions intact. No scleral icterus. No injection or drainage. ENT: Nose without bleeding, purulent drainage or septal hematoma. Throat without erythema, tonsillar hypertrophy or exudate. Uvula midline. Airway patent. NECK: Trachea midline. No JVD or lymphadenopathy. Supple, nontender, no meningeal signs. CARDIOVASCULAR: Irregular rate and irregular rhythm without murmurs, gallops, or rubs. White scar tissue mid chest. RESPIRATORY: Clear to auscultation. Breath sounds equal bilaterally. No wheezes , rales, or rhonchi. GASTROINTESTINAL: Abdomen soft, non-tender, nondistended. No hepato-splenomegaly , or palpable masses. No guarding. MUSCULOSKELETAL: Extremities without clubbing, cyanosis. Trace lower extremity edema from the foot to edition. No joint tenderness, effusion, or edema noted. No calf tenderness. Negative Homans sign bilaterally. NEUROLOGICAL: Awake and alert. Cranial nerves II through XII intact. Motor and sensory grossly within normal limits. Five out of 5 muscle strength in all muscle groups. Normal speech. Pelvic: Scrotal area with erythema and swelling. Medications and IVs Current Medications Medications (Trade) Dose Ordered Sig/Tj Route Start Time Stop Time Status Last Admin (NS Flush) 2 ml UNSCH PRN IVF 11/20/16 10:45 (NS Flush) 2 ml UNSCH PRN IV FLUSH 11/20/16 14:00 (NS Flush) 2 ml BID IV FLUSH 11/20/16 21:00 11/21/16 08:10 (Tylenol) 650 mg Q4H PRN PO 11/20/16 14:00 (Narcan Inj) 0.4 mg UNSCH PRN IV 11/20/16 14:00 (Milk Of Magnesia Liq) 30 ml Q12H PRN PO 11/20/16 14:00 Calcium Carbonate 1000 mg 1,000 mg BID PO 11/20/16 14:15 11/21/16 08:09 Calcium Chloride 10 gm/Sodium Chloride 1,000 ml @ 50 mls/hr Q20H IV 11/20/16 15:00 11/20/16 15:32 (Rocephin Inj/NS Inj) 100 ml @ 200 mls/hr Q24H IV 11/20/16 15:00 11/20/16 18:38 (Lasix Inj) 40 mg BID@09,18 IV PUSH 11/20/16 18:00 11/21/16 08:10 (D50w (Vial) Inj) 50 ml UNSCH PRN IV 11/20/16 14:45 (Glucagon Inj) 1 mg UNSCH PRN OTHER 11/20/16 14:45 (Nitroglycerin 2% Oint) 0.5 inch Q8HR TOPICAL 6/20/17 22:00 11/20/16 21:23 (NovoLIN 70/30 INJ) 10 units DAILY@08 SQ 11/21/16 08:00 11/21/16 08:11 (NovoLIN 70/30 INJ) 5 units DAILY@17 SQ 11/20/16 17:00 (Aspirin Chew) 81 mg DAILY CHEW 11/20/16 16:00 11/21/16 08:09 (Urecholine) 25 mg BID PO 11/20/16 21:00 ([place] 5-325 Mg) 1 tab QID PRN PO 11/20/16 16:00 11/21/16 08:32 (Keppra) 500 mg BID PO 11/20/16 21:00 11/21/16 08:09 (Singulair) 10 mg DAILY PO 11/21/16 09:00 11/21/16 08:08 (Proscar) 5 mg DAILY PO 11/21/16 09:00 11/21/16 08:09 (Melatonin) 10 mg HS PO 11/20/16 21:00 11/20/16 21:23 (Drisdol) 50,000 units Q7D PO 11/20/16 20:00 11/20/16 21:23 (Albumin 25% Inj) 12.5 gm BID IV 11/20/16 21:00 11/21/16 08:08 A/P Assessment and Plan 76-year-old male past medical history of coronary artery disease status post CABG, penile transplant, chronic kidney disease status post renal transplant, chronic hypocalcemia, type 2 diabetes insulin-dependent, chronic atrial fibrillation, BPH, and history of multiple intracranial bleed who presented with generalized weakness and scrotal/lower extremity edema 1. Generalized weakness PT when he is more stable at this time weak not able to get Physical Therapy. most likely worsened due to Severe Hypocalcemia, Volume overload, on diuresis. 2. Severe Hypocalcemia replaced and following, Vitamin d deficiency replacement. 3. Hypertension 4. Prolonged QT interval/Atrial Fibrillation most likely secondary to Hypocalcemia also LBBB, followed by field identification specialist 5. Atypical Chest pain in a patient with CAD status post CABG, mildly elevated Troponin level as per field identification specialist non candidate for intervention, he has history of Multiple intracranial bleed anticoagulation contraindicated 6. Scrotal Wall thickening initially on Levaquin switch to Ceftriaxone by Urology specialist following 7. Acute Renal Injury on chronic kidney disease status post Renal transplant, to continue diuresis has Volume overload continue diuresis. 8. Volume Overload/Anasarca/left pleural effusion on diuresis and Albumin as per Nephrology specialist. 9. History of intracranial bleed Keppra for prophylaxis. 10. DM II continue Insulin and following. 11. Chronic back pain DVT prophylaxis -SCDs Code Status full Code. Discussed Condition With Patient, nurse and , all questions answered to the best of my abilities. Discharge Planning once cleared by specialists. Mateo Ridley MD Nov 21, 2016 09:47 -History of renal transplant, kidney given by his son. -May be secondary to diabetic nephropathy and is exacerbated by BPH obstruction. -will get a renal ultrasound. -Avoid nephrotoxins. -Will consult fringe knotter. -Patient is on Lasix due to being volume overloaded. Left-sided pleural effusion -Per patient he is asymptomatic. -Admitted in August 2015 due to left-sided pneumonia. -We will get an echo. -Continue to monitor clinically. -Give Lasix 40 mg IV twice a day. Home dose of 60 mg by mouth daily. Lower extremity edema -Improved. -Patient is on Lasix 60 mg by mouth twice a day. -Due to pleural effusion and edema will give 40 mg IV twice a day. -Strict ins and outs. History of intracranial bleed -Patient is on Keppra for prophylaxis. -Continue with Keppra. Persistent atrial fibrillation -Anticoagulation or antiplatelets contraindicated in patient. -rate is controlled. 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 and 18 units at night. -Since patient has decreased by mouth intake will start at a lower dose. -Also start insulin sliding scale with hypoglycemic protocol. Chronic back pain/allergic rhinitis -Resume home medication. BPH DVT prophylaxis -SCDs Spent 45 minutes in the management of patient's care. Code Status full Discussed Condition With Mateo Ridley MD Nov 21, 2016 09:47
--- NOTE | 2016-11-21 11:26 | MB ---
cc: MINOO MELENDEZ DATE OF CONSULTATION: 11/21/2016 HISTORY OF PRESENT ILLNESS Mr. Olson is a pleasant 76-year-old male who was recently seen in the office with left testicular pain. At that time, he had scrotal erythema and testicular tenderness. His PCP had started him on Levaquin and this was continued by myself due to his scrotal swelling. By report from his , she stated that he had a UTI which was the reason he was on the Levaquin. He presented with weakness yesterday to the emergency room and was found to have a prolonged QT interval. Levaquin was then stopped and he is currently on Rocephin which seems to be helping his condition. He does have multiple medical problems in the past and gets occasional chest pain but none today is noted. PAST MEDICAL HISTORY His medical history includes: 1. Atrial fibrillation. 2. Hemorrhagic stroke with intracranial hemorrhage and previous subdural hematoma. 3. Type 2 diabetes is noted. 4. Prior history of renal disease and underwent renal transplant in 1998. 5. Also has a history of seizures 6. Hypertension 7. Hypocalcemia 8. Hypoparathyroidism 9. Carotid disease. PAST SURGICAL HISTORY 1. Again is noted for renal transplant in 1998. 2. Penile implant. 3. Bilateral retinal surgery. 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 5. Craniotomy with frontal meningioma resection. SOCIAL HISTORY He is currently . He denies smoking or drinking. FAMILY HISTORY Family history was reviewed and is noncontributory. REVIEW OF SYSTEMS A 12-point review of systems was performed and all the other systems are negative per the HPI. PHYSICAL EXAMINATION VITAL SIGNS: His vitals today, temperature is 98.8, heart rate is 102, respiratory rate 20, 126/56 is the blood pressure. GENERAL: He is well-developed, well-nourished 76-year-old male, in no acute distress. HEENT: Normocephalic, atraumatic. Pupils are equal, round, reactive to light. Extraocular movements intact. NECK: Supple. HEART: Rate is sinus tach. Breath sounds bilaterally. ABDOMEN: Soft, nontender, nondistended. : Is noted for some scrotal erythema along the left hemiscrotum with some testicular tenderness noted. EXTREMITIES: Show 2+ edema. NEURO: He is awake and alert x3. Cranial nerves II-XII are intact. PSYCHE: Presently in a good mood without any history of psychiatric problems. LABORATORY DATA White count is 8.4, hemoglobin 14.7, hematocrit 45.7, platelet count 129. Sodium 137, potassium 3.9, chloride 95, CO2 is 30.4, BUN of 36, creatinine 1.45, glucose of 73, calcium today is 8.2 and on admission it was less than 5. Total bili is 1.1. Troponin today is 0.10, slightly elevated. Albumin is low at 2.1. Urinalysis is currently pending. IMAGING STUDIES Renal ultrasound shows a transplanted kidney in the right lower quadrant without hydronephrosis. The bladder was unremarkable and nondistended. The scrotal ultrasound was performed showing no testicular masses, marked scrotal skin thickening of the left hemiscrotum, small hydrocele is noted, mild left varicocele. ASSESSMENT A 76-year-old male admitted with weakness and hypocalcemia with scrotal wall thickening and erythema. Levaquin has been stopped and will continue with Rocephin for now. Will check a urinalysis and will check a bladder scan to check his postvoid residual. Continue IV antibiotics for now. Consider scrotal elevation to help with scrotal wall thickening. Will follow with you. Thank you for the consult and allowing me to participate in the care of this patient. Minoo CHU/TLL /10:56 AM /11:14 AM
--- NOTE | 2016-11-21 12:03 | PD.CARD.PN ---
Subjective Subjective Remarks No new complaints Objective Medications Current Medications Medications (Trade) Dose Ordered Sig/Tj Route Start Time Stop Time Status Last Admin (NS Flush) 2 ml UNSCH PRN IVF 11/20/16 10:45 (NS Flush) 2 ml UNSCH PRN IV FLUSH 11/20/16 14:00 (NS Flush) 2 ml BID IV FLUSH 11/20/16 21:00 11/21/16 08:10 (Tylenol) 650 mg Q4H PRN PO 11/20/16 14:00 (Narcan Inj) 0.4 mg UNSCH PRN IV 11/20/16 14:00 (Milk Of Magnmarysol Liq) 30 ml Q12H PRN PO 11/20/16 14:00 Calcium Carbonate 1000 mg 1,000 mg BID PO 11/20/16 14:15 11/21/16 08:09 Calcium Chloride 10 gm/Sodium Chloride 1,000 ml @ 50 mls/hr Q20H IV 11/20/16 15:00 11/20/16 15:32 (Rocephin Inj/NS Inj) 100 ml @ 200 mls/hr Q24H IV 11/20/16 15:00 11/20/16 18:38 (Lasix Inj) 40 mg BID@09,18 IV PUSH 11/20/16 18:00 11/21/16 08:10 (D50w (Vial) Inj) 50 ml UNSCH PRN IV 11/20/16 14:45 (Glucagon Inj) 1 mg UNSCH PRN OTHER 11/20/16 14:45 (Nitroglycerin 2% Oint) 0.5 inch Q8HR TOPICAL 11/20/16 22:00 11/20/16 21:23 (NovoLIN 70/30 INJ) 10 units DAILY@08 SQ 11/21/16 08:00 11/21/16 08:11 (NovoLIN 70/30 INJ) 5 units DAILY@17 SQ 11/20/16 17:00 (Aspirin Chew) 81 mg DAILY CHEW 11/20/16 16:00 11/21/16 08:09 (Urecholine) 25 mg BID PO 11/20/16 21:00 ([place] 5-325 Mg) 1 tab QID PRN PO 11/20/16 16:00 11/21/16 08:32 (Keppra) 500 mg BID PO 11/20/16 21:00 11/21/16 08:09 (Singulair) 10 mg DAILY PO 11/21/16 09:00 11/21/16 08:08 (Proscar) 5 mg DAILY PO 11/21/16 09:00 11/21/16 08:09 (Melatonin) 10 mg HS PO 11/20/16 21:00 11/20/16 21:23 (Drisdol) 50,000 units Q7D PO 11/20/16 20:00 11/20/16 21:23 (Albumin 25% Inj) 12.5 gm BID IV 11/20/16 21:00 11/21/16 08:08 Vital Signs / I&O Vital Signs Date Time Temp Pulse Resp B/P Pulse Ox O2 Delivery O2 Flow Rate FiO2 11/21/16 08:00 98.8 113 20 126/56 98 11/21/16 06:00 102 11/21/16 05:00 102 11/21/16 04:00 97.9 106 18 132/58 96 11/21/16 04:00 108 11/21/16 03:00 102 11/21/16 02:00 102 11/21/16 01:00 105 11/21/16 00:00 98.0 111 18 136/85 96 11/21/16 00:00 102 11/20/16 23:00 100 11/20/16 22:00 100 11/20/16 21:36 96 Nasal Cannula 2.00 11/20/16 21:00 96 11/20/16 20:00 97.9 95 18 120/70 96 11/20/16 20:00 89 11/20/16 19:00 94 11/20/16 18:30 105 11/20/16 18:30 97.0 105 18 143/84 99 11/20/16 13:15 98 Nasal Cannula 11/20/16 13:15 73 26 103/63 97 Nasal Cannula 2 11/20/16 12:06 75 16 92/53 96 Room Air I/O 11/20/16 11/20/16 11/20/16 11/21/16 11/21/16 11/21/16 07:00 15:00 23:00 07:00 15:00 23:00 Intake Total 480 ml 740 ml Output Total 250 ml 850 ml Balance 230 ml -110 ml Intake Oral 480 ml 240 ml IV Total 500 ml Output Urine Total 250 ml 850 ml # Voids 1 Physical Exam Awake, No acute distress Chest: diminished BS at bases CV S1S2 irr irr anasraca - leg/scrotal/back swelling Laboratory Laboratory Tests Test 11/20/16 11/20/16 11/20/16 11/21/16 13:13 13:15 18:09 04:24 25-Hydroxy Vitamin D Total 5.0 ng/ML Sodium Level 135 MEQ/L 137 MEQ/L Potassium Level 4.4 MEQ/L 3.9 MEQ/L Chloride Level 96 MEQ/L 95 MEQ/L Carbon Dioxide Level 30.5 MEQ/L 30.4 MEQ/L Anion Gap 9 MEQ/L 12 MEQ/L Blood Urea Nitrogen 41 MG/DL 36 MG/DL Creatinine 1.95 MG/DL 1.45 MG/DL Estimat Glomerular Filtration 34 ML/MIN 47 ML/MIN Rate Random Glucose 169 MG/DL 73 MG/DL Calcium Level LESS THAN 5.0 8.2 MG/DL MG/DL Protein Corrected Calcium 5.8 MG/DL Magnesium Level 1.8 MG/DL 1.8 MG/DL Total Bilirubin 0.6 MG/DL 1.1 MG/DL Aspartate Amino Transf 26 U/L 18 U/L (AST/SGOT) Alanine Aminotransferase 16 U/L 13 U/L (ALT/SGPT) Alkaline Phosphatase 97 U/L 94 U/L Total Creatine Kinase 642 U/L Creatine Kinase MB 5.2 NG/ML Creatine Kinase MB % 0.8 % Troponin I 0.11 NG/ML 0.12 NG/ML 0.10 NG/ML Total Protein 5.1 GM/DL 5.1 GM/DL Albumin 1.9 GM/DL 2.1 GM/DL White Blood Count 8.4 TH/MM3 Red Blood Count 5.63 MIL/MM3 Hemoglobin 14.7 GM/DL Hematocrit 45.7 % Mean Corpuscular Volume 81.1 FL Mean Corpuscular Hemoglobin 26.0 PG Mean Corpuscular Hemoglobin 32.1 % Concent Red Cell Distribution Width 18.4 % Platelet Count 129 TH/MM3 Mean Platelet Volume 8.7 FL Parathyroid Hormone (Intact) 3.5 PG/ML Imaging Last 48 hours Impressions Chest X-Ray 11/20/16 1043 Signed Impressions: Service Date/Time: Sunday, November 20, 2016 11:01 - CONCLUSION: 1. Moderate left pleural effusion and left basilar density likely atelectasis. 2. Cardiomegaly and previous CABG. Fran Jose MD Scrotum Ultrasound 11/20/16 0000 Signed Impressions: Service Date/Time: Sunday, November 20, 2016 16:52 - CONCLUSION: 1. No testicular masses. 2. Marked scrotal skin thickening. Small hydroceles. Mild left varicocele. Kirby Kyle MD Renal Ultrasound 11/20/16 0000 Signed Impressions: Service Date/Time: Sunday, November 20, 2016 16:29 - CONCLUSION: 1. Transplant kidney in the right lower quadrant. No hydronephrosis. Atrophic [place] right kidney. Left kidney not visualized. Ascites. Kirby Kyle MD Assessment and Plan Problem List: (1) Atrial fibrillation, permanent (2) Hypoalbuminemia (3) Left bundle branch block (4) Troponin level elevated Assessment and Plan: doubt OR (5) Anasarca (6) Cardiomyopathy Assessment and Plan Renal handling his diuresis Code Status Discussed with and pt. - will need this issue followed up. I don't think they want intubation Discussed Condition With Jone Gray MD Nov 21, 2016 12:03
[2016-11-21] MEDS: CALCIUM CHLORIDE IV SCH (12:13)
[2016-11-21] MEDS: SODIUM CHLOR 0.9% IV SCH (12:13)
[2016-11-21] MEDS: cefTRIAXone INJ 1,000 MG in SODIUM CHLORIDE 0.9% INJ 100 ML IV SCH (15:37)
--- NOTE | 2016-11-21 17:58 | HHI.NPPN ---
Subjective History of Present Illness The patient is a 76 yo [place] male who was brought to this facility for evaluation of extensive fluid retention. and family are the primary historians as he has some baseline dementia s/p CVA. Has been following his PCP, Dr. Beasley, for fluid retention. Was admitted in August for PNA and reports that he has had fluid retention since then. Was started on Lasix 40mg BID and was increased about 3 weeks ago to 60mg BID with only minimal response. He is a LRD kidney transplant patient in 1998 from his son and has not been on any immunosuppressives for a number of years according to his . His initial cause of renal failure is diabetes and was a HD via permacath for a few months before his transplant. According to family, his renal functions have been stable for his entire post-transplant life. Other PMHx of CAD s/p CABG, no known hx of CHF, DM, HTN, BPH without obstruction. No NSAID use. Admitting SCr of 1.94. August 2016 was 1.34 Prior levels have fluctuated between 0.8-1.5 ( Interval History Patient with no verbal complaints. by bedside. Review of Systems General Constitutional: Fatigue Objective Data Data 11/20/16 11/21/16 19:00 07:00 Intake Total 480 ml 740 ml Output Total 250 ml 850 ml Balance 230 ml -110 ml Intake Oral 480 ml 240 ml IV Total 500 ml Output Urine Total 250 ml 850 ml # Voids 1 Vital Signs Date Time Temp Pulse Resp B/P Pulse Ox O2 Delivery O2 Flow Rate FiO2 11/21/16 16:17 97 Nasal Cannula 2.00 11/21/16 14:00 96 11/21/16 13:00 104 11/21/16 12:00 98.1 109 18 121/58 97 11/21/16 11:00 104 11/21/16 10:00 102 11/21/16 08:00 98.8 113 20 126/56 98 11/21/16 06:00 102 11/21/16 05:00 102 11/21/16 04:00 97.9 106 18 132/58 96 11/21/16 04:00 108 11/21/16 03:00 102 11/21/16 02:00 102 11/21/16 01:00 105 11/21/16 00:00 98.0 111 18 136/85 96 11/21/16 00:00 102 11/20/16 23:00 100 11/20/16 22:00 100 11/20/16 21:36 96 Nasal Cannula 2.00 11/20/16 21:00 96 11/20/16 20:00 97.9 95 18 120/70 96 11/20/16 20:00 89 11/20/16 19:00 94 11/20/16 18:30 105 11/20/16 18:30 97.0 105 18 143/84 99 -: 11/21/16 0424 11/21/16 0424 Medication Review Current Medications Sodium Chloride 2 ml 2 ml UNSCH PRN IVF FLUSH AFTER USING IV ACCESS; Start at 10:45 Calcium Gluconate 1 gm/Dextrose 110 ml @ 110 mls/hr ONCE ONCE IV Last administered on 11/20/16 12:24; Start 11/20/16 at 11:00; Stop 11/20/16 at 11:59 ; Status DC Calcium Gluconate/ Dextrose (Calcium Gluconate Inj/D5W 100 ml Inj) 110 ml @ 110 mls/hr ONCE ONCE IV Last administered on 11/20/16 16:52; Start 11/20/16 at 14:00; Stop 11/20/16 at 14:59; Status DC Sodium Chloride (NS Flush) 2 ml UNSCH PRN IV FLUSH FLUSH AFTER USING IV ACCESS ; Start 11/20/16 at 14:00 Sodium Chloride (NS Flush) 2 ml BID IV FLUSH Last administered on 11/21/16 08: 10; Start 11/20/16 at 21:00 Acetaminophen (Tylenol) 650 mg Q4H PRN PO TEMP > 100.4; Start 11/20/16 at 14:00 Naloxone HCl (Narcan Inj) 0.4 mg UNSCH PRN IV SEE LABEL COMMENTS; Start at 14:00 Magnesium Hydroxide (Milk Of Magnesia Liq) 30 ml Q12H PRN PO MILD - MODERATE CONSTIPATION; Start 11/20/16 at 14:00 Calcium Carbonate 1000 mg 1,000 mg BID PO Last administered on 11/21/16 08:09 ; Start 11/20/16 at 14:15 Magnesium Sulfate/ Dextrose 100 ml @ 100 mls/hr ONCE ONCE IV Last administered on 11/20/16 16:29; Start 11/20/16 at 14:15; Stop 11/20/16 at 15:14 ; Status DC Calcium Chloride 10 gm/Sodium Chloride 1,000 ml @ 50 mls/hr Q20H IV Last administered on 11/21/16 12:13; Start 11/20/16 at 15:00 Ceftriaxone Sodium/Sodium Chloride (Rocephin Inj/NS Inj) 100 ml @ 200 mls/hr Q24H IV Last administered on 11/21/16 15:37; Start 11/20/16 at 15:00 Furosemide (Lasix Inj) 40 mg BID@09,18 IV PUSH Last administered on 11/21/16 17:35; Start 11/20/16 at 18:00 Dextrose (D50w (Vial) Inj) 50 ml UNSCH PRN IV HYPOGLYCEMIA-SEE COMMENTS; Start 11/20/16 at 14:45 Glucagon (Glucagon Inj) 1 mg UNSCH PRN OTHER HYPOGLYCEMIA-SEE COMMENTS; Start 11/20/16 at 14:45 Insulin Aspart (NovoLOG SUPPLEMENTAL SCALE) 1 ACHS SLIDING SCALE SQ ; Start at 16:00 Nitroglycerin (Nitroglycerin 2% Oint) 0.5 inch Q8HR TOPICAL Last administered on 11/21/16 15:37; Start 11/20/16 at 22:00 Aspirin (Aspirin Chew) 81 mg DAILY PO ; Start 11/20/16 at 15:45; Stop 11/20/16 at 15:55; Status DC Insulin Human Isoph/Insulin Regular (NovoLIN 70/30 INJ) 10 units DAILY@08 SQ Last administered on 11/21/16 08:11; Start 11/21/16 at 08:00 Insulin Human Isoph/Insulin Regular (NovoLIN 70/30 INJ) 5 units DAILY@17 SQ Last administered on 11/21/16 17:35; Start 11/20/16 at 17:00 Aspirin (Aspirin Chew) 81 mg DAILY CHEW Last administered on 11/21/16 08:09; Start 11/20/16 at 16:00 Albuterol Sulfate (Albuterol Neb) 2.5 mg TID NEB PRN NEB SHORTNESS OF BREATH Last administered on 11/20/16 21:29; Start 11/20/16 at 16:00 Bethanechol Chloride (Urecholine) 25 mg BID PO ; Start 11/20/16 at 21:00 Acetaminophen/ Hydrocodone Bitart ([place] 5-325 Mg) 1 tab QID PRN PO PAIN 1-10 Last administered on 11/21/16 17:28; Start 11/20/16 at 16:00 Levetriacetam (Keppra) 500 mg BID PO Last administered on 11/21/16 08:09; Start 11/20/16 at 21:00 Montelukast Sodium (Singulair) 10 mg DAILY PO Last administered on 11/21/16 08 :08; Start 11/21/16 at 09:00 Finasteride (Proscar) 5 mg DAILY PO bph Last administered on 11/21/16 08:09; Start 11/21/16 at 09:00 Melatonin (Melatonin) 10 mg HS PO Last administered on 11/20/16 21:23; Start 11/20/16 at 21:00 Ergocalciferol (Drisdol) 50,000 units Q7D PO Last administered on 11/20/16 21: 23; Start 11/20/16 at 20:00 Albumin Human (Albumin 25% Inj) 12.5 gm BID IV Last administered on 11/21/16 08:08; Start 11/20/16 at 21:00 Physical Exam General Appearance: No Acute Distress Eyes Eye Exam: Sclera White Neck Neck Exam: Trachea Midline Pulmonary Resp Exam: Clear Bilaterally, Breath Sounds Equal, No Distress Cardiology CV Exam: Regular, Normal Sinus Rhythm, Good Perfusion Gastrointestinal/Abdomen GI Exam: Soft, Non-Tender Integumentary Skin Exam: Clear, Warm, Dry Extremeties Extremities Exam: Moderate Edema (involving legs and hips.) Neurologic Neuro Exam: Awake Assessment/Plan Problem List: (1) DEJA (acute kidney injury) Plan: Review of labs for the past several years shows a varying SCr between 1.1 -1.5. His current renal decline is likely related to some degree of cardiorenal syndrome. According to the immunosuppressive therapy was discontinued by his previous figure skater 10 years post transplant I'm assuming secondary to development of tolerance to graft. Will try to get records from his primary care physician regarding transplant information. Medications should be adjusted for the patient's renal decline. Avoid nephrotoxic medications including NSAIDs and iodinated contrast dyes. Avoid gadolinium when eGFR <30. (2) Postsurgical hypoparathyroidism Plan: As indicated by the low parathyroid hormone level despite hypocalcemia. Apparently the patient had been on calcitriol in the past but not recently. The patient's and patient were counseled regarding the need for calcitriol and calcium supplementation. The goal of therapy with calcitriol would be to maintain the calcium level slightly low or at low normal to try to avoid the development of hypercalciuria which can occur in this setting with calcitriol. There is a risk of nephrocalcinosis with hypercalciuria. Would subsequently do a 24-hour urine for calcium and subsequently every 6 monthly thereafter if stability is achieved. This was discussed with the patient's and patient and I also strongly advised that they find a figure skater to follow-up with as an outpatient (3) Kidney transplant status, living related donor Plan: Transplanted in 1998 LRD. Was on immunosuppressives, but has not been on for some years as per the . Will try to get records from his transplant facility in [place]. May request opinion from Dr. Castaneda regarding resumption of immunosuppressives. (4) Anasarca Plan: Volume status improving. Continue furosemide as ordered for the present with follow-up renal indices and volume status tomorrow. I discussed with the patient and his indication for diuretic therapy as well as need to try to avoid volume depletion which may result in worsening renal indices but she was advised to diuretic therapy is required for management of his CHF. Reviewed echo. EF of 40%, mild-mod TR, aortic sclerosis, mild pulmonary hypertension Monitor I&Os (5) Hypocalcemia Plan: Improved. (6) Vitamin D deficiency Plan: Repletion as ordered (7) DM2 (diabetes mellitus, type 2) Plan: Mgmt as per primary (8) Hypertension Plan: As per hx. Hypotensive in house. Medications held. Lizz Pro MD Nov 21, 2016 17:58
--- NOTE | 2016-11-21 19:40 | PD.CONS ---
History of Present Illness Service [facility] Consult Requested By Lizz Pro MD Reason for Consult Evaluate for resuming immunosuppressants Primary Care Physician Luis Angel Beasley M.D. Diagnoses: History of Present Illness 76 yo male with original ESRD secondary to DM, s/p LD KTx from his son on . Post TX maintenance on Tacrolimus and Mycophenolate; stable graft function with no reported incidence of rejection prior to intentional discontinuation of IS meds around the end of 2009. Since then, he has been maintaining a fluctuating, but controlled allograft function in the Creatinine range of 1.2 to 1.6, but has required the addition of a diuretic. He voids about 20+ ounces of urine/day , and denies any c/o RLQ pain, swelling, or discomfort. He is currently under evaluation and treatment by Urology for epididymitis, as well as BPH. He is admitted for hypocalcemia, arrhythmia, and weakness. Review of Systems ROS Limitations: Altered Mental Status, Speech Impaired, Poor Historian History mainly from spouse and daughter Past Family Social History Allergies: Coded Allergies: Haldol (Verified Allergy, Severe, Confusion, 11/19/16) Trileptal (Verified Allergy, Severe, 11/19/16) Past Medical History CAD ESRD hypocalcemia prolonged QTc epididymitis BPH hx multiple UTI's hemorrhagic CVA 2010 > residual dementia pneumonia 08/[address] effusion hx SDH from meningioma 2009 Past Surgical History CABG 1993 coronary stents 1998 LD KTx 09/1998 parathyroidectomy 05/1999 craniotomy 06/2012 eye surgery penile implant Reported Medications Current Medications Medications (Trade) Dose Ordered Sig/Tj Route Start Time Stop Time Status Last Admin (NS Flush) 2 ml UNSCH PRN IVF 11/20/16 10:45 (NS Flush) 2 ml UNSCH PRN IV FLUSH 11/20/16 14:00 (NS Flush) 2 ml BID IV FLUSH 11/20/16 21:00 11/21/16 08:10 (Tylenol) 650 mg Q4H PRN PO 11/20/16 14:00 (Narcan Inj) 0.4 mg UNSCH PRN IV 11/20/16 14:00 (Milk Of Magnesia Liq) 30 ml Q12H PRN PO 11/20/16 14:00 Calcium Carbonate 1000 mg 1,000 mg BID PO 6/20/17 14:15 11/21/16 08:09 (Rocephin Inj/NS Inj) 100 ml @ 200 mls/hr Q24H IV 11/20/16 15:00 11/21/16 15:37 (Lasix Inj) 40 mg BID@09,18 IV PUSH 11/20/16 18:00 11/21/16 17:35 (D50w (Vial) Inj) 50 ml UNSCH PRN IV 11/20/16 14:45 (Glucagon Inj) 1 mg UNSCH PRN OTHER 11/20/16 14:45 (Nitroglycerin 2% Oint) 0.5 inch Q8HR TOPICAL 11/20/16 22:00 11/21/16 15:37 (NovoLIN 70/30 INJ) 10 units DAILY@08 SQ 11/21/16 08:00 11/21/16 08:11 (NovoLIN 70/30 INJ) 5 units DAILY@17 SQ 11/20/16 17:00 11/21/16 17:35 (Aspirin Chew) 81 mg DAILY CHEW 11/20/16 16:00 11/21/16 08:09 (Urecholine) 25 mg BID PO 11/20/16 21:00 ([place] 5-325 Mg) 1 tab QID PRN PO 11/20/16 16:00 11/21/16 17:28 (Keppra) 500 mg BID PO 11/20/16 21:00 11/21/16 08:09 (Singulair) 10 mg DAILY PO 11/21/16 09:00 11/21/16 08:08 (Proscar) 5 mg DAILY PO 11/21/16 09:00 11/21/16 08:09 (Melatonin) 10 mg HS PO 11/20/16 21:00 11/20/16 21:23 (Drisdol) 50,000 units Q7D PO 11/20/16 20:00 11/20/16 21:23 (Albumin 25% Inj) 12.5 gm BID IV 11/20/16 21:00 11/21/16 08:08 (Rocaltrol) 0.25 mcg DAILY PO 11/21/16 18:00 Family History NC Social History + for DM Physical Exam Vital Signs Vital Signs Date Time Temp Pulse Resp B/P Pulse Ox O2 Delivery O2 Flow Rate FiO2 11/21/16 16:17 97 Nasal Cannula 2.00 11/21/16 14:00 96 11/21/16 13:00 104 11/21/16 12:00 98.1 109 18 121/58 97 11/21/16 11:00 104 11/21/16 10:00 102 11/21/16 08:00 98.8 113 20 126/56 98 11/21/16 06:00 102 11/21/16 05:00 102 11/21/16 04:00 97.9 106 18 132/58 96 11/21/16 04:00 108 11/21/16 03:00 102 11/21/16 02:00 102 11/21/16 01:00 105 11/21/16 00:00 98.0 111 18 136/85 96 11/21/16 00:00 102 11/20/16 23:00 100 11/20/16 22:00 100 11/20/16 21:36 96 Nasal Cannula 2.00 11/20/16 21:00 96 11/20/16 20:00 97.9 95 18 120/70 96 11/20/16 20:00 89 Physical Exam GENERAL: This is a well-developed patient, in no apparent distress, upright in bed. SKIN: mild erythema in R arm, abd and pelvis. Cool and dry. HEAD: Atraumatic. Normocephalic. EYES: Extraocular motions intact. No scleral icterus. No injection or drainage. ENT: Nose without bleeding, purulent drainage or septal hematoma. Airway patent. NECK: Trachea midline. No JVD . GASTROINTESTINAL: Abdomen soft, non-tender, nondistended. No hepato-splenomegaly , or palpable masses. No guarding. Slight loose pannus; RLQ incision well healed w/o hernia MUSCULOSKELETAL: Extremities with mild to mod edema. NEUROLOGICAL: Awake. Less clear speech. Laboratory Laboratory Tests Test 11/21/16 04:24 White Blood Count 8.4 Red Blood Count 5.63 Hemoglobin 14.7 Hematocrit 45.7 Mean Corpuscular Volume 81.1 Mean Corpuscular Hemoglobin 26.0 Mean Corpuscular Hemoglobin 32.1 Concent Red Cell Distribution Width 18.4 Platelet Count 129 Mean Platelet Volume 8.7 Sodium Level 137 Potassium Level 3.9 Chloride Level 95 Carbon Dioxide Level 30.4 Anion Gap 12 Blood Urea Nitrogen 36 Creatinine 1.45 Estimat Glomerular Filtration 47 Rate Random Glucose 73 Calcium Level 8.2 Magnesium Level 1.8 Total Bilirubin 1.1 Aspartate Amino Transf 18 (AST/SGOT) Alanine Aminotransferase 13 (ALT/SGPT) Alkaline Phosphatase 94 Troponin I 0.10 Total Protein 5.1 Albumin 2.1 Parathyroid Hormone (Intact) 3.5 Hepatitis B Surface Antigen NEGATIVE Hepatitis C Antibody NEGATIVE Result Diagram: 11/21/1642311/21/16423 Assessment and Plan Assessment and Plan No clear indications for reinstating immunosuppression given that: 1) his recent and current renal function reflect a compromised, but stable renal function 2) Mr. Olson's age probably has him under a less active immune system 3) he was intentionally discontinued from his meds, thus acknowledging a tolerant state 4) with recurrent UTI's and a recent pneumonia, he already has some degree of autoimmunosuppression, and further IS would compromise his ability to withstand infection and/or malignancy The allograft US revealed no hydronephrosis, and a bladder scan showed no PVR; thus,stasis from lower urinary tract obstruction/resistance may play only a partial role in his Creatinine elevation and UTI's. We will monitor for the effects of the Finesteride to take effect. Aj Castaneda MD Nov 21, 2016 19:40
[2016-11-21] MEDS: MELATONIN 5 MG TAB PO SCH (22:53)
[2016-11-21] MEDS: CALCITRIOL 0.25 MCG CAP PO SCH (22:59)
[2016-11-22] VITALS (26 sets, daily range): BP systolic 113–137; BP diastolic 64–72; PULSE 82–116; RESP 18–22; TEMP 97.6–97.9; O2SAT 92–99
[2016-11-22] MEDS: NITROGLYCERIN 2% OINT 1 GM PACKET TOPICAL SCH ×3 (06:00→22:00)
[2016-11-22] MEDS: INSULIN ASPART SUPPLEMENTAL SCALE SQ SCH ×4 (06:38→21:00)
[2016-11-22 07:04] LABS: BICARBONATE 34.5 MEQ/L (21.0-32.0); CALCIUM-PROTEIN CORRECTED 7.7 MG/DL (8.5-10.1); POTASSIUM 4.1 MEQ/L (3.5-5.1)
[2016-11-22] MEDS: INSULIN HUMAN NPH/R 70/30 1,000 UNITS/10 ML VIAL SQ SCH ×2 (08:00→17:00)
[2016-11-22] MEDS: ASPIRIN 81 MG CHEW TAB CHEW SCH (09:00)
[2016-11-22] MEDS: CALCIUM CARBONATE 1.25 GM (CA 500 MG) TAB PO SCH ×2 (09:11→22:05)
[2016-11-22] MEDS: MONTELUKAST SODIUM 10 MG TAB PO SCH (09:11)
[2016-11-22] MEDS: levETIRAcetam 500 MG TAB PO SCH ×2 (09:11→22:05)
[2016-11-22] MEDS: FINASTERIDE 5 MG TAB PO SCH (09:11)
[2016-11-22] MEDS: BETHANECHOL CHL 25 MG TAB PO SCH ×2 (09:12→22:05)
[2016-11-22] MEDS: CALCITRIOL 0.25 MCG CAP PO SCH (09:12)
[2016-11-22] MEDS: FUROSEMIDE 20 MG/2 ML VIAL IV PUSH SCH ×2 (09:14→17:41)
[2016-11-22] MEDS: SODIUM CHLORIDE 0.9% FLUSH 10 ML FLUSH IV FLUSH SCH ×2 (09:15→22:06)
[2016-11-22] MEDS: ALBUMIN HUMAN 25% 12.5 GM/50 ML BAGP IV SCH ×2 (09:15→22:07)
--- NOTE | 2016-11-22 12:43 | HHI.PR ---
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 About one month ago patient developed generalized weakness and lower extremity edema and scrotal edema. He stated that he also had chest pain that started about 3 months ago, He increased his Lasix from 40 mg to 60 mg every oh daily. He stated that this helped his edema a lot. Patient also has scrotal edema and which he saw his urologist Dr. Lee and stated that he had epididymitis and was treated with Levaquin. He was told that he needs a total of about 1 month of treatment. Patient does have a history of multiple UTIs. Testicular ultrasound was also ordered as outpatient. he has history of CVA 2012, DM II Kidney transplant. 11/21: Seen in his bedroom in the presence of his , discussed with nurse Miss Holloway His Creatinine is decreases from 1.95 to 1.45, he is receiving Albumin, Improving calcium levels with replacement but he had extravasation and has erythema on both arms secondary to Calcium, this drips were discontinued by Nephrology specialist and switch to by mouth Calcium 11/22: Patient stable no nausea, vomit or diarrhea, seen in the presence of his . discussed with nurse Miss Calvo. Objective Vital Signs Date Time Temp Pulse Resp B/P Pulse Ox O2 Delivery O2 Flow Rate FiO2 11/22/16 12:08 104 11/22/16 12:06 97.8 95 18 135/67 95 11/22/16 11:03 100 11/22/16 10:37 115 11/22/16 09:00 110 11/22/16 08:00 113 11/22/16 07:48 97.7 111 18 124/64 99 11/22/16 07:45 112 11/22/16 06:00 101 11/22/16 05:00 104 11/22/16 04:00 106 11/22/16 04:00 97.6 113 18 137/72 99 11/22/16 03:00 100 11/22/16 02:00 110 11/22/16 01:00 104 11/22/16 00:00 116 11/22/16 00:00 97.6 113 20 129/67 92 11/21/16 22:00 90 11/21/16 21:00 90 11/21/16 20:00 85 11/21/16 20:00 97.4 113 20 145/83 95 11/21/16 19:00 98 11/21/16 16:17 97 Nasal Cannula 2.00 11/21/16 16:00 98.8 109 20 125/70 98 11/21/16 14:00 96 11/21/16 13:00 104 I/O 11/21/16 11/21/16 11/21/16 11/22/16 11/22/16 11/22/16 07:00 15:00 23:00 07:00 15:00 23:00 Intake Total 740 ml 360 ml 240 ml Output Total 850 ml 860 ml 425 ml Balance -110 ml -500 ml -185 ml Intake Oral 240 ml 100 ml 240 ml IV Total 500 ml 260 ml Output Urine Total 850 ml 860 ml 425 ml # Bowel Movements 0 Result Diagram: 11/21/16 0424 11/22/16 0529 Imaging Last Impressions Chest X-Ray 11/20/16 1043 Signed Impressions: Service Date/Time: Sunday, November 20, 2016 11:01 - CONCLUSION: 1. Moderate left pleural effusion and left basilar density likely atelectasis. 2. Cardiomegaly and previous CABG. Fran Jose MD Scrotum Ultrasound 11/20/16 0000 Signed Impressions: Service Date/Time: Sunday, November 20, 2016 16:52 - CONCLUSION: 1. No testicular masses. 2. Marked scrotal skin thickening. Small hydroceles. Mild left varicocele. Kirby Kyle MD Renal Ultrasound 11/20/16 0000 Signed Impressions: Service Date/Time: Sunday, November 20, 2016 16:29 - CONCLUSION: 1. Transplant kidney in the right lower quadrant. No hydronephrosis. Atrophic [place] right kidney. Left kidney not visualized. Ascites. Kirby Kyle MD Procedures No procedures performed. Other Results Laboratory Tests Test 11/20/16 11/20/16 11/20/16 11/21/16 10:45 13:13 13:15 04:24 Neutrophils (%) (Auto) 76.1 % Lymphocytes (%) (Auto) 7.0 % Monocytes (%) (Auto) 16.1 % Eosinophils (%) (Auto) 0.4 % Basophils (%) (Auto) 0.4 % Neutrophils # (Auto) 7.2 TH/MM3 Lymphocytes # (Auto) 0.7 TH/MM3 Monocytes # (Auto) 1.5 TH/MM3 Eosinophils # (Auto) 0.0 TH/MM3 Basophils # (Auto) 0.0 TH/MM3 CBC Comment DIFF FINAL Differential Comment Prothrombin Time 14.5 SEC Prothromb Time International 1.3 RATIO Ratio Activated Partial 37.1 SEC Thromboplast Time B-Type Natriuretic Peptide 361 PG/ML 25-Hydroxy Vitamin D Total 5.0 ng/ML Total Creatine Kinase 642 U/L Creatine Kinase MB 5.2 NG/ML Creatine Kinase MB % 0.8 % White Blood Count 8.4 TH/MM3 Red Blood Count 5.63 MIL/MM3 Hemoglobin 14.7 GM/DL Hematocrit 45.7 % Mean Corpuscular Volume 81.1 FL Mean Corpuscular Hemoglobin 26.0 PG Mean Corpuscular Hemoglobin 32.1 % Concent Red Cell Distribution Width 18.4 % Platelet Count 129 TH/MM3 Mean Platelet Volume 8.7 FL Magnesium Level 1.8 MG/DL Total Bilirubin 1.1 MG/DL Aspartate Amino Transf 18 U/L (AST/SGOT) Alanine Aminotransferase 13 U/L (ALT/SGPT) Alkaline Phosphatase 94 U/L Troponin I 0.10 NG/ML Albumin 2.1 GM/DL Parathyroid Hormone (Intact) 3.5 PG/ML Hepatitis B Surface Antigen NEGATIVE Hepatitis C Antibody NEGATIVE Test 11/22/16 05:29 Sodium Level 140 MEQ/L Potassium Level 4.1 MEQ/L Chloride Level 96 MEQ/L Carbon Dioxide Level 34.5 MEQ/L Anion Gap 10 MEQ/L Blood Urea Nitrogen 34 MG/DL Creatinine 1.30 MG/DL Estimat Glomerular Filtration 54 ML/MIN Rate Random Glucose 184 MG/DL Calcium Level 6.9 MG/DL Protein Corrected Calcium 7.7 MG/DL Total Protein 5.5 GM/DL Objective Remarks GENERAL: This is a frail male in NAD SKIN: No rashes. Cool and dry. B/L ext erythematous changes due to stasis. No warmth noted. HEAD: Atraumatic. Normocephalic. No temporal or scalp tenderness. EYES: Pupils equal round and reactive. Extraocular motions intact. No scleral icterus. No injection or drainage. ENT: Nose without bleeding, purulent drainage or septal hematoma. Throat without erythema, tonsillar hypertrophy or exudate. Uvula midline. Airway patent. NECK: Trachea midline. No JVD or lymphadenopathy. Supple, nontender, no meningeal signs. CARDIOVASCULAR: Irregular rate and irregular rhythm without murmurs, gallops, or rubs. White scar tissue mid chest. RESPIRATORY: Clear to auscultation. Breath sounds equal bilaterally. No wheezes , rales, or rhonchi. GASTROINTESTINAL: Abdomen soft, non-tender, nondistended. No hepato-splenomegaly , or palpable masses. No guarding. MUSCULOSKELETAL: Extremities without clubbing, cyanosis. Trace lower extremity edema from the foot to edition. No joint tenderness, effusion, or edema noted. No calf tenderness. Negative Homans sign bilaterally. NEUROLOGICAL: Awake and alert. Cranial nerves II through XII intact. Motor and sensory grossly within normal limits. Five out of 5 muscle strength in all muscle groups. Normal speech. Pelvic: Scrotal area with erythema and swelling. Medications and IVs Current Medications Medications (Trade) Dose Ordered Sig/Tj Route Start Time Stop Time Status Last Admin (NS Flush) 2 ml UNSCH PRN IVF 11/20/16 10:45 (NS Flush) 2 ml UNSCH PRN IV FLUSH 11/20/16 14:00 (NS Flush) 2 ml BID IV FLUSH 11/20/16 21:00 11/22/16 09:15 (Tylenol) 650 mg Q4H PRN PO 11/20/16 14:00 (Narcan Inj) 0.4 mg UNSCH PRN IV 11/20/16 14:00 (Milk Of Magnesia Liq) 30 ml Q12H PRN PO 11/20/16 14:00 Calcium Carbonate 1000 mg 1,000 mg BID PO 11/20/16 14:15 11/22/16 09:11 (Rocephin Inj/NS Inj) 100 ml @ 200 mls/hr Q24H IV 11/20/16 15:00 11/21/16 15:37 (Lasix Inj) 40 mg BID@09,18 IV PUSH 11/20/16 18:00 11/22/16 09:14 (D50w (Vial) Inj) 50 ml UNSCH PRN IV 11/20/16 14:45 (Glucagon Inj) 1 mg UNSCH PRN OTHER 11/20/16 14:45 (Nitroglycerin 2% Oint) 0.5 inch Q8HR TOPICAL 11/20/16 22:00 11/21/16 15:37 (NovoLIN 70/30 INJ) 10 units DAILY@08 SQ 11/21/16 08:00 11/21/16 08:11 (NovoLIN 70/30 INJ) 5 units DAILY@17 SQ 11/20/16 17:00 11/21/16 17:35 (Aspirin Chew) 81 mg DAILY CHEW 11/20/16 16:00 11/21/16 08:09 (Urecholine) 25 mg BID PO 11/20/16 21:00 11/22/16 09:12 ([place] 5-325 Mg) 1 tab QID PRN PO 11/20/16 16:00 11/21/16 23:19 (Keppra) 500 mg BID PO 11/20/16 21:00 11/22/16 09:11 (Singulair) 10 mg DAILY PO 11/21/16 09:00 11/22/16 09:11 (Proscar) 5 mg DAILY PO 11/21/16 09:00 11/22/16 09:11 (Melatonin) 10 mg HS PO 11/20/16 21:00 11/21/16 22:53 (Drisdol) 50,000 units Q7D PO 11/20/16 20:00 11/20/16 21:23 (Albumin 25% Inj) 12.5 gm BID IV 11/20/16 21:00 11/22/16 09:15 (Rocaltrol) 0.25 mcg DAILY PO 11/21/16 18:00 11/22/16 09:12 A/P Assessment and Plan 76-year-old male past medical history of coronary artery disease status post CABG, penile transplant, chronic kidney disease status post renal transplant, chronic hypocalcemia, type 2 diabetes insulin-dependent, chronic atrial fibrillation, BPH, and history of multiple intracranial bleed who presented with generalized weakness and scrotal/lower extremity edema 1. Generalized weakness PT when he is more stable at this time weak not able to get Physical Therapy. most likely worsened due to Severe Hypocalcemia, Volume overload, on diuresis. 2. Severe Hypocalcemia replaced and following, Vitamin d deficiency replacement. 3. Hypertension controlled. 4. Prolonged QT interval/Atrial Fibrillation most likely secondary to Hypocalcemia also LBBB, followed by [employer] specialist 5. Atypical Chest pain in a patient with CAD status post CABG, mildly elevated Troponin level as per [employer] specialist non candidate for intervention, he has history of Multiple intracranial bleed anticoagulation contraindicated 6. Scrotal Wall thickening initially on Levaquin switch to Ceftriaxone by Urology specialist following 7. Acute Renal Injury on chronic kidney disease status post Renal transplant, to continue diuresis has Volume overload continue diuresis.Creatinine improving. 8. Volume Overload/Anasarca/left pleural effusion on diuresis and Albumin as per Nephrology specialist. 9. History of intracranial bleed Keppra for prophylaxis. 10. DM II continue Insulin and following. 11. Chronic back pain DVT prophylaxis -SCDs Code Status full Code. Discussed Condition With Patient, nurse and , all questions answered to the best of my abilities. continue working with Physical Therapy. Discharge Planning once cleared by specialists. Mateo Ridley MD Nov 22, 2016 12:43
[2016-11-22] MEDS: RESP: ALBUTEROL 2.5 MG/3 ML NEB (PRN) NEB ×2 (13:16→20:58)
[2016-11-22] MEDS: cefTRIAXone INJ 1,000 MG in SODIUM CHLORIDE 0.9% INJ 100 ML IV SCH (15:31)
--- NOTE | 2016-11-22 17:40 | HHI.NPPN ---
Subjective History of Present Illness The patient is a 76 yo [place] male who was brought to this facility for evaluation of extensive fluid retention. and family are the primary historians as he has some baseline dementia s/p CVA. Has been following his PCP, Dr. Beasley, for fluid retention. Was admitted in August for PNA and reports that he has had fluid retention since then. Was started on Lasix 40mg BID and was increased about 3 weeks ago to 60mg BID with only minimal response. He is a LRD kidney transplant patient in 1998 from his son and has not been on any immunosuppressives for a number of years according to his . His initial cause of renal failure is diabetes and was a HD via permacath for a few months before his transplant. According to family, his renal functions have been stable for his entire post-transplant life. Other PMHx of CAD s/p CABG, no known hx of CHF, DM, HTN, BPH without obstruction. No NSAID use. Admitting SCr of 1.94. August 2016 was 1.34 Prior levels have fluctuated between 0.8-1.5 ( Interval History Pt is resting. present in room Reports he is quite fatigued and little strength. No new issues Review of Systems General Constitutional: Fatigue Cardiovascular Cardiac: Edema Objective Data Data 11/21/16 11/22/16 19:00 07:00 Intake Total 360 ml 240 ml Output Total 860 ml 425 ml Balance -500 ml -185 ml Intake Oral 100 ml 240 ml IV Total 260 ml Output Urine Total 860 ml 425 ml # Bowel Movements 0 Vital Signs Date Time Temp Pulse Resp B/P Pulse Ox O2 Delivery O2 Flow Rate FiO2 11/22/16 16:16 93 11/22/16 15:46 97.9 111 18 121/69 92 11/22/16 15:46 111 11/22/16 14:41 95 11/22/16 13:26 98 11/22/16 12:08 104 11/22/16 12:06 97.8 95 18 135/67 95 11/22/16 11:03 100 11/22/16 10:37 115 11/22/16 09:00 110 11/22/16 08:00 113 11/22/16 07:48 97.7 111 18 124/64 99 11/22/16 07:45 112 11/22/16 06:00 101 11/22/16 05:00 104 11/22/16 04:00 106 11/22/16 04:00 97.6 113 18 137/72 99 11/22/16 03:00 100 11/22/16 02:00 110 11/22/16 01:00 104 11/22/16 00:00 116 11/22/16 00:00 97.6 113 20 129/67 92 11/21/16 22:00 90 11/21/16 21:00 90 11/21/16 20:00 85 11/21/16 20:00 97.4 113 20 145/83 95 11/21/16 19:00 98 -: 11/21/16 0424 11/22/16 0529 Imaging Last Impressions Chest X-Ray 11/20/16 1043 Signed Impressions: Service Date/Time: Sunday, November 20, 2016 11:01 - CONCLUSION: 1. Moderate left pleural effusion and left basilar density likely atelectasis. 2. Cardiomegaly and previous CABG. Fran Jose MD Scrotum Ultrasound 11/20/16 0000 Signed Impressions: Service Date/Time: Sunday, November 20, 2016 16:52 - CONCLUSION: 1. No testicular masses. 2. Marked scrotal skin thickening. Small hydroceles. Mild left varicocele. Kirby Kyle MD Renal Ultrasound 11/20/16 0000 Signed Impressions: Service Date/Time: Sunday, November 20, 2016 16:29 - CONCLUSION: 1. Transplant kidney in the right lower quadrant. No hydronephrosis. Atrophic [place] right kidney. Left kidney not visualized. Ascites. Kirby Kyle MD Medication Review Current Medications Medications (Trade) Dose Ordered Sig/Tj Route Start Time Stop Time Status Last Admin (NS Flush) 2 ml UNSCH PRN IVF 11/20/16 10:45 (NS Flush) 2 ml UNSCH PRN IV FLUSH 11/20/16 14:00 (NS Flush) 2 ml BID IV FLUSH 11/20/16 21:00 11/22/16 09:15 (Tylenol) 650 mg Q4H PRN PO 11/20/16 14:00 (Narcan Inj) 0.4 mg UNSCH PRN IV 11/20/16 14:00 (Milk Of Magnesia Liq) 30 ml Q12H PRN PO 11/20/16 14:00 Calcium Carbonate 1000 mg 1,000 mg BID PO 11/20/16 14:15 11/22/16 09:11 (Rocephin Inj/NS Inj) 100 ml @ 200 mls/hr Q24H IV 11/20/16 15:00 11/22/16 15:31 (Lasix Inj) 40 mg BID@09,18 IV PUSH 11/20/16 18:00 11/22/16 09:14 (D50w (Vial) Inj) 50 ml UNSCH PRN IV 11/20/16 14:45 (Glucagon Inj) 1 mg UNSCH PRN OTHER 11/20/16 14:45 (Nitroglycerin 2% Oint) 0.5 inch Q8HR TOPICAL 11/20/16 22:00 11/21/16 15:37 (NovoLIN 70/30 INJ) 10 units DAILY@08 SQ 11/21/16 08:00 11/21/16 08:11 (NovoLIN 70/30 INJ) 5 units DAILY@17 SQ 11/20/16 17:00 11/21/16 17:35 (Aspirin Chew) 81 mg DAILY CHEW 11/20/16 16:00 11/21/16 08:09 (Urecholine) 25 mg BID PO 11/20/16 21:00 11/22/16 09:12 ([place] 5-325 Mg) 1 tab QID PRN PO 11/20/16 16:00 11/21/16 23:19 (Keppra) 500 mg BID PO 11/20/16 21:00 11/22/16 09:11 (Singulair) 10 mg DAILY PO 11/21/16 09:00 11/22/16 09:11 (Proscar) 5 mg DAILY PO 11/21/16 09:00 11/22/16 09:11 (Melatonin) 10 mg HS PO 11/20/16 21:00 11/21/16 22:53 (Drisdol) 50,000 units Q7D PO 11/20/16 20:00 11/20/16 21:23 (Albumin 25% Inj) 12.5 gm BID IV 11/20/16 21:00 11/22/16 09:15 (Rocaltrol) 0.25 mcg DAILY PO 11/21/16 18:00 11/22/16 09:12 Physical Exam General Appearance: No Acute Distress Eyes Eye Exam: Sclera White Neck Neck Exam: Trachea Midline Pulmonary Resp Exam: Clear Bilaterally, Breath Sounds Equal, No Distress, Diminished Breath Sounds Cardiology CV Exam: Normal Sinus Rhythm, Good Perfusion, Irregular Gastrointestinal/Abdomen GI Exam: Soft, Non-Tender Integumentary Skin Exam: Clear, Warm, Dry Extremeties Extremities Exam: Moderate Edema (involving legs and hips--improving) Assessment/Plan Problem List: (1) DEJA (acute kidney injury) Plan: Review of labs for the past several years shows a varying SCr between 1.1 -1.5. His current renal decline is likely related to some degree of cardiorenal syndrome. SCr improved. UOP good, but suspect better than what is being documented as pt has not tolerated condom cath. To continue on current dose of Lasix. Medications should be adjusted for the patient's renal decline. Avoid nephrotoxic medications including NSAIDs and iodinated contrast dyes. Avoid gadolinium when eGFR <30. (2) Kidney transplant status, living related donor Plan: Transplanted in 1998 LRD. Was on immunosuppressives, but has not been on for 10 years Appreciate input from transplant surgeon who suggests not resuming. (3) Anasarca Plan: Volume status improving. Continue furosemide as ordered for the present with follow-up renal indices and volume status tomorrow. Reviewed echo. EF of 40%, mild-mod TR, aortic sclerosis, mild pulmonary hypertension Monitor I&Os (4) Postsurgical hypoparathyroidism Plan: As indicated by the low parathyroid hormone level despite hypocalcemia. To continue on po calcium supplementation at 1000mg daily. Continue on Calcitriol 0.25mcg po QD. May need increased to 0.5mcg The goal of therapy with calcitriol would be to maintain the calcium level slightly low or at low normal to try to avoid the development of hypercalciuria which can occur in this setting with calcitriol. There is a risk of nephrocalcinosis with hypercalciuria. Would subsequently do a 24-hour urine for calcium and subsequently every 6 monthly thereafter if stability is achieved. This was discussed with the patient's and patient and I also strongly advised that they find a lens coater to follow-up with as an outpatient (5) Hypocalcemia Plan: Stable (6) Vitamin D deficiency Plan: Repletion as ordered (7) DM2 (diabetes mellitus, type 2) Plan: Mgmt as per primary (8) Hypertension Plan: As per hx. Hypotensive in house. Medications held. Sarah Carbajal Nov 22, 2016 17:40
[2016-11-22] MEDS: MELATONIN 5 MG TAB PO SCH ×2 (22:00→22:06)
[2016-11-23] VITALS (23 sets, daily range): BP systolic 115–128; BP diastolic 50–70; PULSE 77–108; RESP 16–24; TEMP 97.6–98.1; O2SAT 93–100
[2016-11-23] MEDS: NITROGLYCERIN 2% OINT 1 GM PACKET TOPICAL SCH ×3 (02:24→22:57)
--- NOTE | 2016-11-23 02:34 | RADRPT ---
EXAM DATE/TIME: 11/23/2016 01:31 [facility] COMPARISON: No previous studies available for comparison. INDICATIONS : Right arm swelling. MEDICAL HISTORY : Hypertension. Osteoarthritis. Osteoporosis. Bilateral eye neuropathy. Seizures. CVA. Afib. CAD. Renal disease and failure. Gout. Diabetes. Shingles. Basal cell carcinoma. Jaundice. Hay fever. SURGICAL HISTORY : Craniotomy. CABG Coronary artery stent. Bilateral cataract extraction. Cardiac cath. Penile implant. Parathyroidectomy. Renal transplant. Head excision skin lesion. ENCOUNTER: Initial ACUITY: 1 day PAIN SCORE: Non-responsive LOCATION: Right arm. FINDINGS: There is nonocclusive thrombus in the right mid and distal basilic veins. Occlusive thrombus in the r ight cephalic vein. CONCLUSION: Nonocclusive thrombus in the right mid and distal basilic veins. Occlusive thrombus in the right ceph alic vein. Fran Jose MD on November 23, 2016 at 2:30 Board Certified Radiologist. This report was verified electronically.
[2016-11-23] MEDS: RESP: ALBUTEROL 2.5 MG/3 ML NEB (PRN) NEB ×2 (02:38→09:59)
[2016-11-23 04:46] LABS: HEMATOCRIT 43.6 % (39.0-51.0); MEAN CELL VOLUME 81.1 FL (80.0-100.0); MEAN CORPUSCULAR HEMOGLOBIN 26.2 PG (27.0-34.0); MEAN CORPUSCULAR HGB CONC 32.3 % (32.0-36.0); PLATELET COUNT 101 TH/MM3 (150-450); RED BLOOD COUNT 5.38 MIL/MM3 (4.50-5.90); REVIEW FLAG FINAL; WHITE BLOOD COUNT 8.1 TH/MM3 (4.0-11.0)
[2016-11-23 05:11] LABS: BICARBONATE 38.2 MEQ/L (21.0-32.0); POTASSIUM 3.8 MEQ/L (3.5-5.1)
[2016-11-23] MEDS: INSULIN ASPART SUPPLEMENTAL SCALE SQ SCH ×3 (07:00→16:00)
[2016-11-23] MEDS: INSULIN HUMAN NPH/R 70/30 1,000 UNITS/10 ML VIAL SQ SCH (08:00)
--- NOTE | 2016-11-23 08:43 | PD.CARD.PN ---
Subjective Subjective Remarks at bedside - states he had chest pain and dyspnea last night Objective Medications Current Medications Medications (Trade) Dose Ordered Sig/Tj Route Start Time Stop Time Status Last Admin (NS Flush) 2 ml UNSCH PRN IVF 11/20/16 10:45 (NS Flush) 2 ml UNSCH PRN IV FLUSH 11/20/16 14:00 (NS Flush) 2 ml BID IV FLUSH 11/20/16 21:00 11/22/16 22:06 (Tylenol) 650 mg Q4H PRN PO 11/20/16 14:00 (Narcan Inj) 0.4 mg UNSCH PRN IV 11/20/16 14:00 (Milk Of Magnesia Liq) 30 ml Q12H PRN PO 11/20/16 14:00 Calcium Carbonate 1000 mg 1,000 mg BID PO 11/20/16 14:15 11/22/16 22:05 (Rocephin Inj/NS Inj) 100 ml @ 200 mls/hr Q24H IV 11/20/16 15:00 11/22/16 15:31 (Lasix Inj) 40 mg BID@09,18 IV PUSH 11/20/16 18:00 11/22/16 17:41 (D50w (Vial) Inj) 50 ml UNSCH PRN IV 11/20/16 14:45 (Glucagon Inj) 1 mg UNSCH PRN OTHER 11/20/16 14:45 (Nitroglycerin 2% Oint) 0.5 inch Q8HR TOPICAL 11/20/16 22:00 11/23/16 02:24 (NovoLIN 70/30 INJ) 10 units DAILY@08 SQ 11/21/16 08:00 11/21/16 08:11 (NovoLIN 70/30 INJ) 5 units DAILY@17 SQ 11/20/16 17:00 11/21/16 17:35 (Aspirin Chew) 81 mg DAILY CHEW 11/20/16 16:00 11/21/16 08:09 (Urecholine) 25 mg BID PO 11/20/16 21:00 11/22/16 22:05 ([place] 5-325 Mg) 1 tab QID PRN PO 11/20/16 16:00 11/21/16 23:19 (Keppra) 500 mg BID PO 11/20/16 21:00 11/22/16 22:05 (Singulair) 10 mg DAILY PO 11/21/16 09:00 11/22/16 09:11 (Proscar) 5 mg DAILY PO 11/21/16 09:00 11/22/16 09:11 (Melatonin) 10 mg HS PO 11/20/16 21:00 11/21/16 22:53 (Drisdol) 50,000 units Q7D PO 11/20/16 20:00 11/20/16 21:23 (Albumin 25% Inj) 12.5 gm BID IV 11/20/16 21:00 11/22/16 22:07 (Rocaltrol) 0.25 mcg DAILY PO 11/21/16 18:00 11/22/16 09:12 Vital Signs / I&O Vital Signs Date Time Temp Pulse Resp B/P Pulse Ox O2 Delivery O2 Flow Rate FiO2 11/23/16 06:00 102 11/23/16 05:00 96 11/23/16 04:00 96 11/23/16 03:00 97.6 101 24 119/66 99 11/23/16 03:00 83 11/23/16 02:00 88 11/23/16 01:00 88 11/23/16 00:00 90 11/22/16 23:00 82 11/22/16 23:00 97.7 94 22 113/64 97 11/22/16 22:00 98 11/22/16 21:00 86 11/22/16 20:58 94 Nasal Cannula 2.00 11/22/16 20:00 108 11/22/16 19:00 90 11/22/16 19:00 97.6 111 22 119/66 97 11/22/16 18:04 96 11/22/16 16:16 93 11/22/16 15:46 97.9 111 18 121/69 92 11/22/16 15:46 111 11/22/16 14:41 95 11/22/16 13:26 98 11/22/16 12:08 104 11/22/16 12:06 97.8 95 18 135/67 95 11/22/16 11:03 100 11/22/16 10:37 115 11/22/16 09:00 110 I/O 11/22/16 11/22/16 11/22/16 11/23/16 11/23/16 11/23/16 07:00 15:00 23:00 07:00 15:00 23:00 Intake Total 240 ml 480 ml 120 ml Output Total 425 ml 450 ml 275 ml Balance -185 ml 30 ml -155 ml Intake Oral 240 ml 480 ml 120 ml Output Urine Total 425 ml 450 ml 275 ml # Voids 4 # Bowel Movements 0 Physical Exam Awake, No acute distress Chest: diminished BS at bases CV S1S2 irr irr, rate about 100 anasraca - leg/scrotal/back swelling Laboratory Laboratory Tests Test 11/23/16 04:14 White Blood Count 8.1 TH/MM3 Red Blood Count 5.38 MIL/MM3 Hemoglobin 14.1 GM/DL Hematocrit 43.6 % Mean Corpuscular Volume 81.1 FL Mean Corpuscular Hemoglobin 26.2 PG Mean Corpuscular Hemoglobin 32.3 % Concent Red Cell Distribution Width 18.0 % Platelet Count 101 TH/MM3 Mean Platelet Volume 8.5 FL Sodium Level 142 MEQ/L Potassium Level 3.8 MEQ/L Chloride Level 98 MEQ/L Carbon Dioxide Level 38.2 MEQ/L Anion Gap 6 MEQ/L Blood Urea Nitrogen 37 MG/DL Creatinine 1.12 MG/DL Estimat Glomerular Filtration 64 ML/MIN Rate Random Glucose 176 MG/DL Calcium Level 6.5 MG/DL Phosphorus Level 4.3 MG/DL Albumin 2.3 GM/DL Assessment and Plan Problem List: (1) Atrial fibrillation, permanent Assessment and Plan: rate about 100. Add low dose metoprolol (2) Hypoalbuminemia (3) Left bundle branch block (4) Troponin level elevated (5) Anasarca Assessment and Plan: request renal to adjust diuretics - not much progress with current diuretic (6) Cardiomyopathy (7) Thrombophlebitis arm Assessment and Plan: management per hospitalist (8) Pleural effusion Assessment and Plan: needs better diuresis (9) Chest pain at rest Assessment and Plan: poor candidate for invasive therapy. Beta keya added (10) Intracranial hemorrhage Assessment and Plan: history of/ not on anticoagulation for this reason Assessment and Plan Major issue is getting more fluid off - gross anasarca - nurse is calling Dr. Pro for further diuretic orders (metolazone? increased furosemide) Jone Gray MD Nov 23, 2016 08:43
[2016-11-23] MEDS: ASPIRIN 81 MG CHEW TAB CHEW SCH (09:00)
[2016-11-23] MEDS: ALBUMIN HUMAN 25% 12.5 GM/50 ML BAGP IV SCH ×2 (09:14→22:55)
[2016-11-23] MEDS: BETHANECHOL CHL 25 MG TAB PO SCH ×2 (09:15→22:57)
[2016-11-23] MEDS: levETIRAcetam 500 MG TAB PO SCH ×2 (09:15→22:56)
[2016-11-23] MEDS: MONTELUKAST SODIUM 10 MG TAB PO SCH (09:15)
[2016-11-23] MEDS: CALCITRIOL 0.25 MCG CAP PO SCH (09:16)
[2016-11-23] MEDS: CALCIUM CARBONATE 1.25 GM (CA 500 MG) TAB PO SCH ×2 (09:16→22:56)
[2016-11-23] MEDS: FUROSEMIDE 20 MG/2 ML VIAL IV PUSH SCH ×2 (09:16→17:54)
[2016-11-23] MEDS: FINASTERIDE 5 MG TAB PO SCH (09:16)
[2016-11-23] MEDS: SODIUM CHLORIDE 0.9% FLUSH 10 ML FLUSH IV FLUSH SCH ×2 (09:17→22:58)
--- NOTE | 2016-11-23 10:35 | HHI.NPPN ---
Subjective History of Present Illness The patient is a 76 yo [place] male who was brought to this facility for evaluation of extensive fluid retention. and family are the primary historians as he has some baseline dementia s/p CVA. Has been following his PCP, Dr. Beasley, for fluid retention. Was admitted in August for PNA and reports that he has had fluid retention since then. Was started on Lasix 40mg BID and was increased about 3 weeks ago to 60mg BID with only minimal response. He is a LRD kidney transplant patient in 1998 from his son and has not been on any immunosuppressives for a number of years according to his . His initial cause of renal failure is diabetes and was a HD via permacath for a few months before his transplant. According to family, his renal functions have been stable for his entire post-transplant life. Other PMHx of CAD s/p CABG, no known hx of CHF, DM, HTN, BPH without obstruction. No NSAID use. Admitting SCr of 1.94. August 2016 was 1.34 Prior levels have fluctuated between 0.8-1.5 ( Interval History Pt has some SOB and CP last evening. present in room Review of Systems General Constitutional: Fatigue Cardiovascular Cardiac: Edema Objective Data Data 11/22/16 11/23/16 19:00 07:00 Intake Total 480 ml 120 ml Output Total 450 ml 275 ml Balance 30 ml -155 ml Intake Oral 480 ml 120 ml Output Urine Total 450 ml 275 ml # Voids 4 Vital Signs Date Time Temp Pulse Resp B/P Pulse Ox O2 Delivery O2 Flow Rate FiO2 11/23/16 10:08 97 11/23/16 10:01 98 Nasal Cannula 4.00 11/23/16 09:26 101 11/23/16 08:02 103 11/23/16 07:46 91 11/23/16 07:46 97.9 100 24 128/70 97 11/23/16 06:00 102 11/23/16 05:00 96 11/23/16 04:00 96 11/23/16 03:00 97.6 101 24 119/66 99 11/23/16 03:00 83 11/23/16 02:00 88 11/23/16 01:00 88 11/23/16 00:00 90 11/22/16 23:00 82 11/22/16 23:00 97.7 94 22 113/64 97 11/22/16 22:00 98 11/22/16 21:00 86 11/22/16 20:58 94 Nasal Cannula 2.00 11/22/16 20:00 108 11/22/16 19:00 90 11/22/16 19:00 97.6 111 22 119/66 97 11/22/16 18:04 96 11/22/16 16:16 93 11/22/16 15:46 97.9 111 18 121/69 92 11/22/16 15:46 111 11/22/16 14:41 95 11/22/16 13:26 98 11/22/16 12:08 104 11/22/16 12:06 97.8 95 18 135/67 95 11/22/16 11:03 100 11/22/16 10:37 115 -: 11/23/16 0414 11/23/16 0414 Medication Review Current Medications Medications (Trade) Dose Ordered Sig/Tj Route Start Time Stop Time Status Last Admin (NS Flush) 2 ml UNSCH PRN IVF 11/20/16 10:45 (NS Flush) 2 ml UNSCH PRN IV FLUSH 11/20/16 14:00 (NS Flush) 2 ml BID IV FLUSH 11/20/16 21:00 11/23/16 09:17 (Tylenol) 650 mg Q4H PRN PO 11/20/16 14:00 (Narcan Inj) 0.4 mg UNSCH PRN IV 11/20/16 14:00 (Milk Of Magnesia Liq) 30 ml Q12H PRN PO 11/20/16 14:00 Calcium Carbonate 1000 mg 1,000 mg BID PO 11/20/16 14:15 11/23/16 09:16 (Rocephin Inj/NS Inj) 100 ml @ 200 mls/hr Q24H IV 11/20/16 15:00 11/22/16 15:31 (Lasix Inj) 40 mg BID@09,18 IV PUSH 11/20/16 18:00 11/23/16 09:16 (D50w (Vial) Inj) 50 ml UNSCH PRN IV 11/20/16 14:45 (Glucagon Inj) 1 mg UNSCH PRN OTHER 11/20/16 14:45 (Nitroglycerin 2% Oint) 0.5 inch Q8HR TOPICAL 11/20/16:00 11/23/16 02:24 (NovoLIN 70/30 INJ) 10 units DAILY@08 SQ 11/21/16 08:00 11/21/16 08:11 (NovoLIN 70/30 INJ) 5 units DAILY@17 SQ 11/20/16 17:00 11/21/16 17:35 (Aspirin Chew) 81 mg DAILY CHEW 11/20/16 16:00 11/21/16 08:09 (Urecholine) 25 mg BID PO 11/20/16 21:00 11/23/16 09:15 ([place] 5-325 Mg) 1 tab QID PRN PO 11/20/16 16:00 11/21/16 23:19 (Keppra) 500 mg BID PO 11/20/16 21:00 11/23/16 09:15 (Singulair) 10 mg DAILY PO 11/21/16 09:00 11/23/16 09:15 (Proscar) 5 mg DAILY PO 11/21/16 09:00 11/23/16 09:16 (Melatonin) 10 mg HS PO 11/20/16 21:00 11/21/16 22:53 (Drisdol) 50,000 units Q7D PO 11/20/16 20:00 11/20/16 21:23 (Albumin 25% Inj) 12.5 gm BID IV 11/20/16 21:00 11/23/16 09:14 (Rocaltrol) 0.25 mcg DAILY PO 11/21/16 18:00 11/23/16 09:16 Physical Exam General Appearance: No Acute Distress Eyes Eye Exam: Sclera White Neck Neck Exam: Trachea Midline Pulmonary Resp Exam: Clear Bilaterally, Breath Sounds Equal, No Distress, Diminished Breath Sounds Cardiology CV Exam: Normal Sinus Rhythm, Good Perfusion, Irregular Gastrointestinal/Abdomen GI Exam: Soft, Non-Tender Integumentary Skin Exam: Clear, Warm, Dry Extremeties Extremities Exam: Moderate Edema (involving legs and hips and back) Neurologic Neuro Exam: Alert, Awake Assessment/Plan Problem List: (1) DEJA (acute kidney injury) Plan: Review of labs for the past several years shows a varying SCr between 1.1 -1.5. His current renal decline is likely related to some degree of cardiorenal syndrome. SCr improving daily Medications should be adjusted for the patient's renal decline. Avoid nephrotoxic medications including NSAIDs and iodinated contrast dyes. Avoid gadolinium when eGFR <30. (2) Kidney transplant status, living related donor Plan: Transplanted in 1998 LRD. Was on immunosuppressives, but has not been on for 10 years Appreciate input from transplant surgeon who suggests not resuming. (3) Anasarca Plan: Reviewed echo. EF of 40%, mild-mod TR, aortic sclerosis, mild pulmonary hypertension Fluid status appears worse today. SOB last evening Will increase Lasix to 60mg IV q8h and give dose of Diamox 500 x1 given contraction alkalosis K+ supplement as well. Continue to monitor I&Os (4) Postsurgical hypoparathyroidism Plan: As indicated by the low parathyroid hormone level despite hypocalcemia. To continue on po calcium supplementation at 1000mg daily. Increase Calcitriol to 0.5mcg QD The goal of therapy with calcitriol would be to maintain the calcium level slightly low or at low normal to try to avoid the development of hypercalciuria which can occur in this setting with calcitriol. There is a risk of nephrocalcinosis with hypercalciuria. Would subsequently do a 24-hour urine for calcium and subsequently every 6 monthly thereafter if stability is achieved. This was discussed with the patient's and patient and I also strongly advised that they find a mission systems engineer to follow-up with as an outpatient (5) Hypocalcemia Plan: Stable (6) Vitamin D deficiency Plan: Repletion as ordered (7) DM2 (diabetes mellitus, type 2) Plan: Mgmt as per primary (8) Hypertension Plan: As per hx. Hypotensive in house. Medications held. Sarah Carbajal Nov 23, 2016 10:35 Sarah Carbajal Nov 23, 2016 10:35
--- NOTE | 2016-11-23 11:23 | HHI.PR ---
Subjective Patient symptoms today Pt more awake and alert today. Objective Vital Signs Vital Signs Date Time Temp Pulse Resp B/P Pulse Ox O2 Delivery O2 Flow Rate FiO2 11/23/16 10:08 97 11/23/16 10:01 98 Nasal Cannula 4.00 11/23/16 09:26 101 11/23/16 08:02 103 11/23/16 07:46 91 11/23/16 07:46 97.9 100 24 128/70 97 11/23/16 06:00 102 11/23/16 05:00 96 11/23/16 04:00 96 11/23/16 03:00 97.6 101 24 119/66 99 11/23/16 03:00 83 11/23/16 02:00 88 11/23/16 01:00 88 11/23/16 00:00 90 11/22/16 23:00 82 11/22/16 23:00 97.7 94 22 113/64 97 11/22/16 22:00 98 11/22/16 21:00 86 11/22/16 20:58 94 Nasal Cannula 2.00 11/22/16 20:00 108 11/22/16 19:00 90 11/22/16 19:00 97.6 111 22 119/66 97 11/22/16 18:04 96 11/22/16 16:16 93 11/22/16 15:46 97.9 111 18 121/69 92 11/22/16 15:46 111 11/22/16 14:41 95 11/22/16 13:26 98 11/22/16 12:08 104 11/22/16 12:06 97.8 95 18 135/67 95 Intake & Output 11/23/16 11/23/16 07:00 19:00 Intake Total 120 ml Output Total 275 ml Balance -155 ml Intake Oral 120 ml Output Urine Total 275 ml Result Diagram: 11/23/16 0414 11/23/16 0414 Imaging Last 24 hours Impressions Upper Extremity Ultrasound 11/23/16 0000 Signed Impressions: Service Date/Time: Wednesday, November 23, 2016 01:31 - CONCLUSION: Nonocclusive thrombus in the right mid and distal basilic veins. Occlusive thrombus in the right cephalic vein. Fran Jose MD Objective Remarks Abd:soft,nt,nd Scrotum: scrotal erythema and swelling improving Medications and IVs Current Medications Medications (Trade) Dose Ordered Sig/Tj Route Start Time Stop Time Status Last Admin (NS Flush) 2 ml UNSCH PRN IVF 11/20/16 10:45 (NS Flush) 2 ml UNSCH PRN IV FLUSH 11/20/16 14:00 (NS Flush) 2 ml BID IV FLUSH 11/20/16 21:00 11/23/16 09:17 (Tylenol) 650 mg Q4H PRN PO 11/20/16 14:00 (Narcan Inj) 0.4 mg UNSCH PRN IV 11/20/16 14:00 (Milk Of Magnesia Liq) 30 ml Q12H PRN PO 11/20/16 14:00 Calcium Carbonate 1000 mg 1,000 mg BID PO 11/20/16 14:15 11/23/16 09:16 (Rocephin Inj/NS Inj) 100 ml @ 200 mls/hr Q24H IV 11/20/16 15:00 11/22/16 15:31 (D50w (Vial) Inj) 50 ml UNSCH PRN IV 11/20/16 14:45 (Glucagon Inj) 1 mg UNSCH PRN OTHER 11/20/16 14:45 (Nitroglycerin 2% Oint) 0.5 inch Q8HR TOPICAL 11/20/16 22:00 11/23/16 02:24 (NovoLIN 70/30 INJ) 10 units DAILY@08 SQ 11/21/16 08:00 11/21/16 08:11 (NovoLIN 70/30 INJ) 5 units DAILY@17 SQ 11/20/16 17:00 11/21/16 17:35 (Aspirin Chew) 81 mg DAILY CHEW 11/20/16 16:00 11/21/16 08:09 (Urecholine) 25 mg BID PO 11/20/16 21:00 11/23/16 09:15 ([place] 5-325 Mg) 1 tab QID PRN PO 11/20/16 16:00 11/21/16 23:19 (Keppra) 500 mg BID PO 11/20/16 21:00 11/23/16 09:15 (Singulair) 10 mg DAILY PO 11/21/16 09:00 11/23/16 09:15 (Proscar) 5 mg DAILY PO 11/21/16 09:00 11/23/16 09:16 (Melatonin) 10 mg HS PO 11/20/16 21:00 11/21/16 22:53 (Drisdol) 50,000 units Q7D PO 11/20/16 20:00 11/20/16 21:23 (Albumin 25% Inj) 12.5 gm BID IV 11/20/16 21:00 11/23/16 09:14 (Rocaltrol) 0.5 mcg DAILY PO 11/24/16 09:00 (Lasix Inj) 60 mg Q8H IV PUSH 11/23/16 17:00 (KCl) 20 meq ONCE ONCE PO 11/23/16 17:00 11/23/16 17:01 Assessment and Plan Assessment and Plan 76 yo male with scrotal cellulitis and edema Bladder scan to make sure pt is emptying bladder Scrotal elevation Aggressive rehab Continue Abx Mariano Lee DO Nov 23, 2016 11:23
[2016-11-23] MEDS: cefTRIAXone INJ 1,000 MG in SODIUM CHLORIDE 0.9% INJ 100 ML IV SCH (15:32)
[2016-11-23] MEDS ORDERED: POTASSIUM CHLORIDE 20 MEQ CONTROLLED RELEASE TAB PO ONE (17:00)
--- NOTE | 2016-11-23 17:25 | HHI.PR ---
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 About one month ago patient developed generalized weakness and lower extremity edema and scrotal edema. He stated that he also had chest pain that started about 3 months ago, He increased his Lasix from 40 mg to 60 mg every oh daily. He stated that this helped his edema a lot. Patient also has scrotal edema and which he saw his urologist Dr. Lee and stated that he had epididymitis and was treated with Levaquin. He was told that he needs a total of about 1 month of treatment. Patient does have a history of multiple UTIs. Testicular ultrasound was also ordered as outpatient. he has history of CVA 2012, DM II Kidney transplant. 11/21: Seen in his bedroom in the presence of his , discussed with nurse Miss Holloway His Creatinine is decreases from 1.95 to 1.45, he is receiving Albumin, Improving calcium levels with replacement but he had extravasation and has erythema on both arms secondary to Calcium, this drips were discontinued by Nephrology specialist and switch to by mouth Calcium 11/22: Patient stable no nausea, vomit or diarrhea, seen in the presence of his . discussed with nurse Miss Calvo. 11/23: Seen in his bedroom in the presence of his and Daughter, the patient during the night had US of the right arm found Superficial venous thrombosis, on the Cephalic vein and Basilic vein, not necessary to start anticoagulation for this veins will continue warm compresses and elevation of Right arm, has also left hand edema his asking for left arm US will do. all questions answered to the best of my abilities. discussed with [place] for rehabilitation by family and accepted by Doctor Lyle. Objective Vital Signs Date Time Temp Pulse Resp B/P Pulse Ox O2 Delivery O2 Flow Rate FiO2 11/23/16 15:42 77 11/23/16 15:40 97.7 80 24 122/50 100 11/23/16 14:00 88 11/23/16 13:13 90 11/23/16 12:18 108 11/23/16 11:48 98.1 93 24 115/54 93 11/23/16 11:48 92 11/23/16 10:08 97 11/23/16 10:01 98 Nasal Cannula 4.00 11/23/16 09:26 101 11/23/16 08:02 103 11/23/16 07:46 91 11/23/16 07:46 97.9 100 24 128/70 97 11/23/16 06:00 102 11/23/16 05:00 96 11/23/16 04:00 96 11/23/16 03:00 97.6 101 24 119/66 99 11/23/16 03:00 83 11/23/16 02:00 88 11/23/16 01:00 88 11/23/16 00:00 90 11/22/16 23:00 82 11/22/16 23:00 97.7 94 22 113/64 97 11/22/16 22:00 98 11/22/16 21:00 86 11/22/16 20:58 94 Nasal Cannula 2.00 11/22/16 20:00 108 11/22/16 19:00 90 11/22/16 19:00 97.6 111 22 119/66 97 11/22/16 18:04 96 I/O 11/22/16 11/22/16 11/22/16 11/23/16 11/23/16 11/23/16 07:00 15:00 23:00 07:00 15:00 23:00 Intake Total 240 ml 480 ml 120 ml Output Total 425 ml 450 ml 275 ml Balance -185 ml 30 ml -155 ml Intake Oral 240 ml 480 ml 120 ml Output Urine Total 425 ml 450 ml 275 ml # Voids 4 # Bowel Movements 0 Result Diagram: 11/23/16 0414 11/23/16 0414 Imaging Last Impressions Upper Extremity Ultrasound 11/23/16 0000 Signed Impressions: Service Date/Time: Wednesday, November 23, 2016 01:31 - CONCLUSION: Nonocclusive thrombus in the right mid and distal basilic veins. Occlusive thrombus in the right cephalic vein. Fran Jose MD Chest X-Ray 11/20/16 1043 Signed Impressions: Service Date/Time: Sunday, November 20, 2016 11:01 - CONCLUSION: 1. Moderate left pleural effusion and left basilar density likely atelectasis. 2. Cardiomegaly and previous CABG. Fran Jose MD Scrotum Ultrasound 11/20/16 0000 Signed Impressions: Service Date/Time: Sunday, November 20, 2016 16:52 - CONCLUSION: 1. No testicular masses. 2. Marked scrotal skin thickening. Small hydroceles. Mild left varicocele. Kirby Kyle MD Renal Ultrasound 11/20/16 0000 Signed Impressions: Service Date/Time: Sunday, November 20, 2016 16:29 - CONCLUSION: 1. Transplant kidney in the right lower quadrant. No hydronephrosis. Atrophic [place] right kidney. Left kidney not visualized. Ascites. Kirby Kyle MD Procedures No procedures performed. Other Results Current Medications Medications (Trade) Dose Ordered Sig/Tj Route Start Time Stop Time Status Last Admin (NS Flush) 2 ml UNSCH PRN IVF 11/20/16 10:45 (NS Flush) 2 ml UNSCH PRN IV FLUSH 11/20/16 14:00 (NS Flush) 2 ml BID IV FLUSH 11/20/16 21:00 11/23/16 09:17 (Tylenol) 650 mg Q4H PRN PO 11/20/16 14:00 (Narcan Inj) 0.4 mg UNSCH PRN IV 11/20/16 14:00 (Milk Of Magnesia Liq) 30 ml Q12H PRN PO 11/20/16 14:00 Calcium Carbonate 1000 mg 1,000 mg BID PO 11/20/16 14:15 11/23/16 09:16 (Rocephin Inj/NS Inj) 100 ml @ 200 mls/hr Q24H IV 11/20/16 15:00 11/23/16 15:32 (D50w (Vial) Inj) 50 ml UNSCH PRN IV 11/20/16 14:45 (Glucagon Inj) 1 mg UNSCH PRN OTHER 11/20/16 14:45 (Nitroglycerin 2% Oint) 0.5 inch Q8HR TOPICAL 11/20/16 22:00 11/23/16 14:16 (NovoLIN 70/30 INJ) 10 units DAILY@08 SQ 11/21/16 08:00 11/21/16 08:11 (NovoLIN 70/30 INJ) 5 units DAILY@17 SQ 11/20/16 17:00 11/21/16 17:35 (Aspirin Chew) 81 mg DAILY CHEW 11/20/16 16:00 11/21/16 08:09 (Urecholine) 25 mg BID PO 11/20/16 21:00 11/23/16 09:15 ([place] 5-325 Mg) 1 tab QID PRN PO 11/20/16 16:00 11/21/16 23:19 (Keppra) 500 mg BID PO 11/20/16 21:00 11/23/16 09:15 (Singulair) 10 mg DAILY PO 11/21/16 09:00 11/23/16 09:15 (Proscar) 5 mg DAILY PO 11/21/16 09:00 11/23/16 09:16 (Melatonin) 10 mg HS PO 11/20/16 21:00 11/21/16 22:53 (Drisdol) 50,000 units Q7D PO 11/20/16 20:00 11/20/16 21:23 (Albumin 25% Inj) 12.5 gm BID IV 11/20/16 21:00 11/23/16 09:14 (Rocaltrol) 0.5 mcg DAILY PO 11/24/16 09:00 (Lasix Inj) 60 mg Q8H IV PUSH 11/23/16 17:00 Objective Remarks GENERAL: This is a frail male in NAD SKIN: No rashes. Cool and dry. B/L ext erythematous changes due to stasis. No warmth noted. HEAD: Atraumatic. Normocephalic. No temporal or scalp tenderness. EYES: Pupils equal round and reactive. Extraocular motions intact. No scleral icterus. No injection or drainage. ENT: Nose without bleeding, purulent drainage or septal hematoma. Throat without erythema, tonsillar hypertrophy or exudate. Uvula midline. Airway patent. NECK: Trachea midline. No JVD or lymphadenopathy. Supple, nontender, no meningeal signs. CARDIOVASCULAR: Irregular rate and irregular rhythm without murmurs, gallops, or rubs. White scar tissue mid chest. RESPIRATORY: Clear to auscultation. Breath sounds equal bilaterally. No wheezes , rales, or rhonchi. GASTROINTESTINAL: Abdomen soft, non-tender, nondistended. No hepato-splenomegaly , or palpable masses. No guarding. MUSCULOSKELETAL: Extremities without clubbing, cyanosis. Trace lower extremity edema from the foot to edition. No joint tenderness, effusion, or edema noted. No calf tenderness. Negative Homans sign bilaterally. NEUROLOGICAL: Awake and alert. Cranial nerves II through XII intact. Motor and sensory grossly within normal limits. Five out of 5 muscle strength in all muscle groups. Normal speech. Pelvic: Scrotal area with erythema and swelling. Medications and IVs Current Medications Medications (Trade) Dose Ordered Sig/Tj Route Start Time Stop Time Status Last Admin (NS Flush) 2 ml UNSCH PRN IVF 11/20/16 10:45 (NS Flush) 2 ml UNSCH PRN IV FLUSH 11/20/16 14:00 (NS Flush) 2 ml BID IV FLUSH 11/20/16 21:00 11/23/16 09:17 (Tylenol) 650 mg Q4H PRN PO 11/20/16 14:00 (Narcan Inj) 0.4 mg UNSCH PRN IV 11/20/16 14:00 (Milk Of Magnesia Liq) 30 ml Q12H PRN PO 11/20/16 14:00 Calcium Carbonate 1000 mg 1,000 mg BID PO 11/20/16 14:15 11/23/16 09:16 (Rocephin Inj/NS Inj) 100 ml @ 200 mls/hr Q24H IV 11/20/16 15:00 11/23/16 15:32 (D50w (Vial) Inj) 50 ml UNSCH PRN IV 11/20/16 14:45 (Glucagon Inj) 1 mg UNSCH PRN OTHER 11/20/16 14:45 (Nitroglycerin 2% Oint) 0.5 inch Q8HR TOPICAL 11/20/16 22:00 11/23/16 14:16 (NovoLIN 70/30 INJ) 10 units DAILY@08 SQ 11/21/16 08:00 11/21/16 08:11 (NovoLIN 70/30 INJ) 5 units DAILY@17 SQ 11/20/16 17:00 11/21/16 17:35 (Aspirin Chew) 81 mg DAILY CHEW 11/20/16 16:00 11/21/16 08:09 (Urecholine) 25 mg BID PO 11/20/16 21:00 11/23/16 09:15 ([place] 5-325 Mg) 1 tab QID PRN PO 11/20/16 16:00 11/21/16 23:19 (Keppra) 500 mg BID PO 11/20/16 21:00 11/23/16 09:15 (Singulair) 10 mg DAILY PO 11/21/16 09:00 11/23/16 09:15 (Proscar) 5 mg DAILY PO 11/21/16 09:00 11/23/16 09:16 (Melatonin) 10 mg HS PO 11/20/16 21:00 11/21/16 22:53 (Drisdol) 50,000 units Q7D PO 11/20/16 20:00 11/20/16 21:23 (Albumin 25% Inj) 12.5 gm BID IV 11/20/16 21:00 11/23/16 09:14 (Rocaltrol) 0.5 mcg DAILY PO 11/24/16 09:00 (Lasix Inj) 60 mg Q8H IV PUSH 11/23/16 17:00 A/P Assessment and Plan 76-year-old male past medical history of coronary artery disease status post CABG, penile transplant, chronic kidney disease status post renal transplant, chronic hypocalcemia, type 2 diabetes insulin-dependent, chronic atrial fibrillation, BPH, and history of multiple intracranial bleed who presented with generalized weakness and scrotal/lower extremity edema 1. Generalized weakness PT when he is more stable at this time weak not able to get Physical Therapy. most likely worsened due to Severe Hypocalcemia, Volume overload, on diuresis. but not effective enough Nephrology increased Lasix and added Diamox. 2. Severe Hypocalcemia replaced and following, Vitamin d deficiency replacement. 3. Hypertension controlled. 4. Prolonged QT interval/Atrial Fibrillation most likely secondary to Hypocalcemia also LBBB, followed by personal protection specialist 5. Atypical Chest pain in a patient with CAD status post CABG, mildly elevated Troponin level as per personal protection specialist non candidate for intervention, he has history of Multiple intracranial bleed anticoagulation contraindicated 6. Scrotal Wall thickening initially on Levaquin switch to Ceftriaxone by Urology specialist following 7. Acute Renal Injury on chronic kidney disease status post Renal transplant, to continue diuresis has Volume overload continue diuresis.Creatinine improving. 8. Volume Overload/Anasarca/left pleural effusion on diuresis and Albumin and Diuretics, increased Lasix dose and added Diamox. 9. History of intracranial bleed Keppra for prophylaxis. 10. DM II continue Insulin and following. uncontrolled adjusted Insulin 11. Chronic back pain DVT prophylaxis -SCDs Code Status full Code. Discussed Condition With Patient, nurse and and Daughter, all questions answered to the best of my abilities. continue working with Physical Therapy. Discharge Planning Discharge to [facility] at discharge. Mateo Ridley MD Nov 23, 2016 17:24
[2016-11-23] MEDS: INSULIN NovoLIN REGULAR SUPPLEMENTAL SCALE SQ SCH (21:00)
[2016-11-23] MEDS: MELATONIN 5 MG TAB PO SCH (22:55)
[2016-11-24] VITALS (25 sets, daily range): BP systolic 113–145; BP diastolic 57–83; PULSE 16–101; RESP 16–18; TEMP 96.1–97.9; O2SAT 95–100
[2016-11-24] MEDS: FUROSEMIDE 20 MG/2 ML VIAL IV PUSH SCH ×3 (02:24→16:54)
[2016-11-24] MEDS ORDERED: LORA-373 PO (03:27)
[2016-11-24] MEDS: INSULIN NovoLIN REGULAR SUPPLEMENTAL SCALE SQ SCH ×4 (06:08→21:00)
[2016-11-24] MEDS: NITROGLYCERIN 2% OINT 1 GM PACKET TOPICAL SCH ×3 (06:09→21:59)
[2016-11-24 07:10] LABS: BICARBONATE 38.5 MEQ/L (21.0-32.0); POTASSIUM 3.5 MEQ/L (3.5-5.1)
[2016-11-24] MEDS ORDERED: INSULIN HUMAN NPH/R 70/30 1,000 UNITS/10 ML VIAL SQ SCH ×2 (08:00→17:00)
[2016-11-24] MEDS: SODIUM CHLORIDE 0.9% FLUSH 10 ML FLUSH IV FLUSH SCH ×2 (08:44→22:00)
[2016-11-24] MEDS: ALBUMIN HUMAN 25% 12.5 GM/50 ML BAGP IV SCH (08:44)
[2016-11-24] MEDS: FINASTERIDE 5 MG TAB PO SCH (08:45)
[2016-11-24] MEDS: CALCITRIOL 0.25 MCG CAP PO SCH (08:45)
[2016-11-24] MEDS: levETIRAcetam 500 MG TAB PO SCH ×2 (08:45→21:59)
[2016-11-24] MEDS: CALCIUM CARBONATE 1.25 GM (CA 500 MG) TAB PO SCH ×2 (08:46→21:58)
[2016-11-24] MEDS: BETHANECHOL CHL 25 MG TAB PO SCH ×2 (08:46→21:59)
[2016-11-24] MEDS: MONTELUKAST SODIUM 10 MG TAB PO SCH (08:46)
[2016-11-24] MEDS: ASPIRIN 81 MG CHEW TAB CHEW SCH (08:50)
[2016-11-24] MEDS ORDERED: CALCIUM GLUCONATE 10% 1 GM/10 ML VIAL IV PUSH ONE (10:30)
--- NOTE | 2016-11-24 11:01 | HHI.NPPN ---
Subjective History of Present Illness The patient is a 76 yo [place] male who was brought to this facility for evaluation of extensive fluid retention. and family are the primary historians as he has some baseline dementia s/p CVA. Has been following his PCP, Dr. Beasley, for fluid retention. Was admitted in August for PNA and reports that he has had fluid retention since then. Was started on Lasix 40mg BID and was increased about 3 weeks ago to 60mg BID with only minimal response. He is a LRD kidney transplant patient in 1998 from his son and has not been on any immunosuppressives for a number of years according to his . His initial cause of renal failure is diabetes and was a HD via permacath for a few months before his transplant. According to family, his renal functions have been stable for his entire post-transplant life. Other PMHx of CAD s/p CABG, no known hx of CHF, DM, HTN, BPH without obstruction. No NSAID use. Admitting SCr of 1.94. August 2016 was 1.34 Prior levels have fluctuated between 0.8-1.5 ( Interval History The patient is sitting in chair, but very lethargic. says he is becoming more confused Diuretics were increased yesterday, but minimal improvement in UOP and overall edematous state. (Sarah Carbajal) Review of Systems General Constitutional: Fatigue (Sarah Carbajal) Cardiovascular Cardiac: Edema (Sarah Carbajal) Objective Data Data 11/23/16 11/24/16 19:00 07:00 Intake Total 1298 ml Output Total 350 ml Balance 948 ml Intake Oral 1200 ml IV Total 98 ml Output Urine Total 350 ml # Voids 4 # Bowel Movements 0 Vital Signs Date Time Temp Pulse Resp B/P Pulse Ox O2 Delivery O2 Flow Rate FiO2 11/24/16 04:00 94 11/24/16 04:00 97.6 101 16 123/76 99 11/24/16 03:00 92 11/24/16 02:00 90 11/24/16 01:00 100 11/24/16 00:00 97.9 98 16 122/69 96 11/24/16 00:00 87 11/23/16 23:00 92 11/23/16 22:00 97.8 80 16 117/60 94 11/23/16 22:00 100 11/23/16 21:45 Nasal Cannula 3.00 11/23/16 18:00 96 11/23/16 17:00 82 11/23/16 16:00 80 11/23/16 15:42 77 11/23/16 15:40 97.7 80 24 122/50 100 11/23/16 14:00 88 11/23/16 13:13 90 11/23/16 12:18 108 11/23/16 11:48 98.1 93 24 115/54 93 11/23/16 11:48 92 (Sarah Carbajal) -: 11/23/16 0414 11/24/16 0603 Medication Review Current Medications Medications (Trade) Dose Ordered Sig/Tj Route Start Time Stop Time Status Last Admin (NS Flush) 2 ml UNSCH PRN IVF 11/20/16 10:45 (NS Flush) 2 ml UNSCH PRN IV FLUSH 11/20/16 14:00 (NS Flush) 2 ml BID IV FLUSH 11/20/16 21:00 11/24/16 08:44 (Tylenol) 650 mg Q4H PRN PO 11/20/16 14:00 (Narcan Inj) 0.4 mg UNSCH PRN IV 11/20/16 14:00 (Milk Of Magnesia Liq) 30 ml Q12H PRN PO 11/20/16 14:00 Calcium Carbonate 1000 mg 1,000 mg BID PO 11/20/16 14:15 11/24/16 08:46 (Rocephin Inj/NS Inj) 100 ml @ 200 mls/hr Q24H IV 11/20/16 15:00 11/23/16 15:32 (D50w (Vial) Inj) 50 ml UNSCH PRN IV 11/20/16 14:45 (Glucagon Inj) 1 mg UNSCH PRN OTHER 11/20/16 14:45 (Nitroglycerin 2% Oint) 0.5 inch Q8HR TOPICAL 11/20/16 22:00 11/24/16 06:09 (Aspirin Chew) 81 mg DAILY CHEW 11/20/16 16:00 11/21/16 08:09 (Urecholine) 25 mg BID PO 11/20/16 21:00 11/24/16 08:46 ([place] 5-325 Mg) 1 tab QID PRN PO 11/20/16 16:00 11/21/16 23:19 (Keppra) 500 mg BID PO 11/20/16 21:00 11/24/16 08:45 (Singulair) 10 mg DAILY PO 11/21/16 09:00 11/24/16 08:46 (Proscar) 5 mg DAILY PO 11/21/16 09:00 11/24/16 08:45 (Melatonin) 10 mg HS PO 11/20/16 21:00 11/23/16 22:55 (Drisdol) 50,000 units Q7D PO 11/20/16 20:00 11/20/16 21:23 (Albumin 25% Inj) 12.5 gm BID IV 11/20/16 21:00 11/24/16 08:44 (Rocaltrol) 0.5 mcg DAILY PO 11/24/16 09:00 11/24/16 08:45 (Lasix Inj) 60 mg Q8H IV PUSH 11/23/16 17:00 11/24/16 08:49 (NovoLIN 70/30 INJ) 7 units DAILY@17 SQ 11/24/16 17:00 (NovoLIN 70/30 INJ) 14 units DAILY@08 SQ 11/24/16 08:00 (Sarah Carbajal) Physical Exam General Appearance: No Acute Distress (Sarah Carbajal) Eyes Eye Exam: Sclera White (Sarah Carbajal) Neck Neck Exam: Trachea Midline (Sarah Carbajal) Pulmonary Resp Exam: Clear Bilaterally, Breath Sounds Equal, No Distress, Diminished Breath Sounds (Sarah Carbajal) Cardiology CV Exam: Normal Sinus Rhythm, Good Perfusion, Irregular (Sarah Carbajal) Gastrointestinal/Abdomen GI Exam: Soft, Non-Tender (Sarah Carbajal) Musculoskeletal MS Exam: Good Strength (Sarah Carbajal) Integumentary Skin Exam: Clear, Warm (Sarah Carbajal) Extremeties Extremities Exam: Moderate Edema (involving legs and hips and torso. Also present in bilat hands) (Sarah Carbajal) Assessment/Plan Problem List: (1) DEJA (acute kidney injury) Plan: Review of labs for the past several years shows a varying SCr between 1.1 -1.5. His current renal decline is likely related to some degree of cardiorenal syndrome. SCr improving, but overall given his diminished UOP, may be grossly underestimating his actual renal function. Will continue with aggressive diuresis. Diamox again today. Medications should be adjusted for the patient's renal decline. Avoid nephrotoxic medications including NSAIDs and iodinated contrast dyes. Avoid gadolinium when eGFR <30. (2) Kidney transplant status, living related donor Plan: Transplanted in 1998 LRD. Was on immunosuppressives, but has not been on for 10 years Appreciate input from transplant surgeon who suggests not resuming. (3) Anasarca Plan: Reviewed echo. EF of 40%, mild-mod TR, aortic sclerosis, mild pulmonary hypertension Adjust diuretics as ordered Continue to monitor I&Os (4) Postsurgical hypoparathyroidism Plan: As indicated by the low parathyroid hormone level despite hypocalcemia. To continue on po calcium supplementation at 1000mg daily. Continue Calcitriol to 0.5mcg QD Calcium gluconate 1g IVP The goal of therapy with calcitriol would be to maintain the calcium level slightly low or at low normal to try to avoid the development of hypercalciuria which can occur in this setting with calcitriol. There is a risk of nephrocalcinosis with hypercalciuria. Would subsequently do a 24-hour urine for calcium and subsequently every 6 monthly thereafter if stability is achieved. This was discussed with the patient's and patient and I also strongly advised that they find a enterprise mobility architect to follow-up with as an outpatient (5) Hypocalcemia Plan: Calcium gluconate ordered today (6) Vitamin D deficiency Plan: Repletion as ordered (7) DM2 (diabetes mellitus, type 2) Plan: Mgmt as per primary (8) Hypertension Plan: As per hx. Hypotensive in house. Medications held. (Sarah Carbajal) Plan Patient's creatinine is stable however it may not be player services representative the patient' s renal function given significant resistance to diuresis. Patient still has generalized fluid retention approaching anasarca. Will change to bumetanide with Diuril 1 dose Diamox also later today because of elevated bicarbonate level. If no improvement in diuresis will switch patient to bumetanide drip. The exam, history, and the medical decision-making described in the above note were completed with the assistance of the ROSAMARIA Villalobos reviewed and agree with the findings presented. I attest that I had a [id number] encounter with the patient on the same day, and personally performed and documented my assessment and findings in the medical record. (Lizz Pro MD) Sarah Carbajal Nov 24, 2016 11:01 Lizz Pro MD Nov 24, 2016 17:55
[2016-11-24] MEDS: cefTRIAXone INJ 1,000 MG in SODIUM CHLORIDE 0.9% INJ 100 ML IV SCH (15:28)
[2016-11-24 15:58] LABS: BACTERIA, URINE OCC /hpf; BLOOD, URINE LARGE (NEG); COMMENT (UR) CATH-CULTURE IND; CULTURE IF INDICATED CATH CULTURE IND; GLUCOSE,URINE NEG (NEG); KETONE, URINE NEG (NEG); NITRITE,URINE NEG (NEG); URINE COLOR YELLOW (YELLW/STRAW)
--- NOTE | 2016-11-24 16:21 | HHI.PR ---
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 About one month ago patient developed generalized weakness and lower extremity edema and scrotal edema. He stated that he also had chest pain that started about 3 months ago, He increased his Lasix from 40 mg to 60 mg every oh daily. He stated that this helped his edema a lot. Patient also has scrotal edema and which he saw his urologist Dr. Lee and stated that he had epididymitis and was treated with Levaquin. He was told that he needs a total of about 1 month of treatment. Patient does have a history of multiple UTIs. Testicular ultrasound was also ordered as outpatient. he has history of CVA 2012, DM II Kidney transplant. 11/21: Seen in his bedroom in the presence of his , discussed with nurse Miss Holloway His Creatinine is decreases from 1.95 to 1.45, he is receiving Albumin, Improving calcium levels with replacement but he had extravasation and has erythema on both arms secondary to Calcium, this drips were discontinued by Nephrology specialist and switch to by mouth Calcium 11/22: Patient stable no nausea, vomit or diarrhea, seen in the presence of his . discussed with nurse Miss Calvo. 11/23: Seen in his bedroom in the presence of his and Daughter, the patient during the night had US of the right arm found Superficial venous thrombosis, on the Cephalic vein and Basilic vein, not necessary to start anticoagulation for this veins will continue warm compresses and elevation of Right arm, has also left hand edema his asking for left arm US will do. all questions answered to the best of my abilities. discussed with [place] for rehabilitation by family and accepted by Doctor Lyle. 11/24: Stable in his bedroom, alert and oriented, discussed with patient, his and his son and Daughter in the room his refused Aspirin for the patient, also refused Insulin in the morning accepted to decrease the dose of Insulin NPH and continue Insulin sliding scale. his creatinine is stable, continue aggressive diuresis as per Nephrology specialist, Transplant surgeon recommended not to resume Immunosuppression, has Postsurgical Hypoparathyroidism , to continue Calcium and calcitriol today given Calcium gluconate 1 gram. Objective Vital Signs Date Time Temp Pulse Resp B/P Pulse Ox O2 Delivery O2 Flow Rate FiO2 11/24/16 14:09 79 11/24/16 13:12 85 11/24/16 12:50 70 11/24/16 11:20 96.1 88 16 145/83 100 11/24/16 11:00 84 11/24/16 10:00 82 11/24/16 09:00 92 11/24/16 08:00 88 11/24/16 07:40 97.2 16 16 122/66 95 11/24/16 07:00 97 11/24/16 04:00 94 11/24/16 04:00 97.6 101 16 123/76 99 11/24/16 03:00 92 11/24/16 02:00 90 11/24/16 01:00 100 11/24/16 00:00 97.9 98 16 122/69 96 11/24/16 00:00 87 11/23/16 23:00 92 11/23/16 22:00 97.8 80 16 117/60 94 11/23/16 22:00 100 11/23/16 21:45 Nasal Cannula 3.00 11/23/16 18:00 96 11/23/16 17:00 82 I/O 11/23/16 11/23/16 11/23/16 11/24/16 11/24/16 11/24/16 07:00 15:00 23:00 07:00 15:00 23:00 Intake Total 120 ml 1298 ml Output Total 275 ml 350 ml Balance -155 ml 948 ml Intake Oral 120 ml 1200 ml IV Total 98 ml Output Urine Total 275 ml 350 ml # Voids 4 # Bowel Movements 0 Result Diagram: 11/23/16 0414 11/24/16 0603 Imaging Last Impressions Upper Extremity Ultrasound 11/23/16 0000 Signed Impressions: Service Date/Time: Wednesday, November 23, 2016 01:31 - CONCLUSION: Nonocclusive thrombus in the right mid and distal basilic veins. Occlusive thrombus in the right cephalic vein. Fran Jose MD Chest X-Ray 11/20/16 1043 Signed Impressions: Service Date/Time: Sunday, November 20, 2016 11:01 - CONCLUSION: 1. Moderate left pleural effusion and left basilar density likely atelectasis. 2. Cardiomegaly and previous CABG. Fran Jose MD Scrotum Ultrasound 11/20/16 0000 Signed Impressions: Service Date/Time: Sunday, November 20, 2016 16:52 - CONCLUSION: 1. No testicular masses. 2. Marked scrotal skin thickening. Small hydroceles. Mild left varicocele. Kirby Kyle MD Renal Ultrasound 11/20/16 0000 Signed Impressions: Service Date/Time: Sunday, November 20, 2016 16:29 - CONCLUSION: 1. Transplant kidney in the right lower quadrant. No hydronephrosis. Atrophic [place] right kidney. Left kidney not visualized. Ascites. Kirby Kyle MD Procedures No procedures performed. Other Results Laboratory Tests Test 11/20/16 11/20/16 11/20/16 11/21/16 10:45 13:13 13:15 04:24 Neutrophils (%) (Auto) 76.1 % Lymphocytes (%) (Auto) 7.0 % Monocytes (%) (Auto) 16.1 % Eosinophils (%) (Auto) 0.4 % Basophils (%) (Auto) 0.4 % Neutrophils # (Auto) 7.2 TH/MM3 Lymphocytes # (Auto) 0.7 TH/MM3 Monocytes # (Auto) 1.5 TH/MM3 Eosinophils # (Auto) 0.0 TH/MM3 Basophils # (Auto) 0.0 TH/MM3 CBC Comment DIFF FINAL Differential Comment Prothrombin Time 14.5 SEC Prothromb Time International 1.3 RATIO Ratio Activated Partial 37.1 SEC Thromboplast Time B-Type Natriuretic Peptide 361 PG/ML 25-Hydroxy Vitamin D Total 5.0 ng/ML Total Creatine Kinase 642 U/L Creatine Kinase MB 5.2 NG/ML Creatine Kinase MB % 0.8 % Magnesium Level 1.8 MG/DL Total Bilirubin 1.1 MG/DL Aspartate Amino Transf 18 U/L (AST/SGOT) Alanine Aminotransferase 13 U/L (ALT/SGPT) Alkaline Phosphatase 94 U/L Troponin I 0.10 NG/ML Parathyroid Hormone (Intact) 3.5 PG/ML Hepatitis B Surface Antigen NEGATIVE Hepatitis C Antibody NEGATIVE Test 11/22/16 11/23/16 11/24/16 11/24/16 05:29 04:14 06:03 14:55 Protein Corrected Calcium 7.7 MG/DL Total Protein 5.5 GM/DL White Blood Count 8.1 TH/MM3 Red Blood Count 5.38 MIL/MM3 Hemoglobin 14.1 GM/DL Hematocrit 43.6 % Mean Corpuscular Volume 81.1 FL Mean Corpuscular Hemoglobin 26.2 PG Mean Corpuscular Hemoglobin 32.3 % Concent Red Cell Distribution Width 18.0 % Platelet Count 101 TH/MM3 Mean Platelet Volume 8.5 FL Sodium Level 143 MEQ/L Potassium Level 3.5 MEQ/L Chloride Level 97 MEQ/L Carbon Dioxide Level 38.5 MEQ/L Anion Gap 8 MEQ/L Blood Urea Nitrogen 34 MG/DL Creatinine 1.13 MG/DL Estimat Glomerular Filtration 63 ML/MIN Rate Random Glucose 198 MG/DL Calcium Level 6.2 MG/DL Phosphorus Level 3.6 MG/DL Albumin 2.3 GM/DL Urine Color YELLOW Urine Turbidity HAZY Urine pH 6.0 Urine Specific [place] 1.009 Urine Protein NEG mg/dL Urine Glucose (UA) NEG mg/dL Urine Ketones NEG mg/dL Urine Occult Blood LARGE Urine Nitrite NEG Urine Bilirubin NEG Urine Urobilinogen LESS THAN 2.0 MG/DL Urine Leukocyte Esterase LARGE Urine RBC 101 /hpf Urine WBC 135 /hpf Urine WBC Clumps MANY Urine Bacteria OCC /hpf Microscopic Urinalysis Comment CATH-CULTURE IND Objective Remarks GENERAL: This is a frail male in NAD SKIN: No rashes. Cool and dry. B/L ext erythematous changes due to stasis. No warmth noted. HEAD: Atraumatic. Normocephalic. No temporal or scalp tenderness. EYES: Pupils equal round and reactive. Extraocular motions intact. No scleral icterus. No injection or drainage. ENT: Nose without bleeding, purulent drainage or septal hematoma. Throat without erythema, tonsillar hypertrophy or exudate. Uvula midline. Airway patent. NECK: Trachea midline. No JVD or lymphadenopathy. Supple, nontender, no meningeal signs. CARDIOVASCULAR: Irregular rate and irregular rhythm without murmurs, gallops, or rubs. White scar tissue mid chest. RESPIRATORY: Clear to auscultation. Breath sounds equal bilaterally. No wheezes , rales, or rhonchi. GASTROINTESTINAL: Abdomen soft, non-tender, nondistended. No hepato-splenomegaly , or palpable masses. No guarding. MUSCULOSKELETAL: Extremities without clubbing, cyanosis. Trace lower extremity edema from the foot to edition. No joint tenderness, effusion, or edema noted. No calf tenderness. Negative Homans sign bilaterally. NEUROLOGICAL: Awake and alert. Cranial nerves II through XII intact. Motor and sensory grossly within normal limits. Five out of 5 muscle strength in all muscle groups. Normal speech. Pelvic: Scrotal area with erythema and swelling. Medications and IVs Current Medications Medications (Trade) Dose Ordered Sig/Tj Route Start Time Stop Time Status Last Admin (NS Flush) 2 ml UNSCH PRN IVF 11/20/16 10:45 (NS Flush) 2 ml UNSCH PRN IV FLUSH 11/20/16 14:00 (NS Flush) 2 ml BID IV FLUSH 11/20/16 21:00 11/24/16 08:44 (Tylenol) 650 mg Q4H PRN PO 11/20/16 14:00 11/24/16 15:27 (Narcan Inj) 0.4 mg UNSCH PRN IV 11/20/16 14:00 (Milk Of Magnesia Liq) 30 ml Q12H PRN PO 11/20/16 14:00 Calcium Carbonate 1000 mg 1,000 mg BID PO 11/20/16 14:15 11/24/16 08:46 (Rocephin Inj/NS Inj) 100 ml @ 200 mls/hr Q24H IV 11/20/16 15:00 11/24/16 15:28 (D50w (Vial) Inj) 50 ml UNSCH PRN IV 11/20/16 14:45 (Glucagon Inj) 1 mg UNSCH PRN OTHER 11/20/16 14:45 (Nitroglycerin 2% Oint) 0.5 inch Q8HR TOPICAL 11/20/16 22:00 11/24/16 14:00 (Aspirin Chew) 81 mg DAILY CHEW 11/20/16 16:00 11/21/16 08:09 (Urecholine) 25 mg BID PO 11/20/16 21:00 11/24/16 08:46 ([place] 5-325 Mg) 1 tab QID PRN PO 11/20/16 16:00 11/21/16 23:19 (Keppra) 500 mg BID PO 11/20/16 21:00 11/24/16 08:45 (Singulair) 10 mg DAILY PO 11/21/16 09:00 11/24/16 08:46 (Proscar) 5 mg DAILY PO 11/21/16 09:00 11/24/16 08:45 (Melatonin) 10 mg HS PO 11/20/16 21:00 11/23/16 22:55 (Drisdol) 50,000 units Q7D PO 11/20/16 20:00 11/20/16 21:23 (Albumin 25% Inj) 12.5 gm BID IV 11/20/16 21:00 11/24/16 08:44 (Rocaltrol) 0.5 mcg DAILY PO 11/24/16 09:00 11/24/16 08:45 (Lasix Inj) 60 mg Q8H IV PUSH 11/23/16 17:00 11/24/16 08:49 (NovoLIN 70/30 INJ) 7 units DAILY@17 SQ 11/24/16 17:00 (NovoLIN 70/30 INJ) 14 units DAILY@08 SQ 11/24/16 08:00 A/P Assessment and Plan 76-year-old male past medical history of coronary artery disease status post CABG, penile transplant, chronic kidney disease status post renal transplant, chronic hypocalcemia, type 2 diabetes insulin-dependent, chronic atrial fibrillation, BPH, and history of multiple intracranial bleed who presented with generalized weakness and scrotal/lower extremity edema 1. Generalized weakness PT when he is more stable at this time weak not able to get Physical Therapy. most likely worsened due to Severe Hypocalcemia, Volume overload, on diuresis. continue Aggressive diuresis by Nephrology 2. Severe Hypocalcemia replaced and following, Vitamin d deficiency replacement. 3. Postsurgical Hypoparathyroidism, to continue Calcium and calcitriol today given Calcium gluconate 1 gram. 4. Hypertension controlled. 5. Prolonged QT interval/Atrial Fibrillation most likely secondary to Hypocalcemia also LBBB, followed by protein specialist 5. Atypical Chest pain in a patient with CAD status post CABG, mildly elevated Troponin level as per protein specialist non candidate for intervention, he has history of Multiple intracranial bleed anticoagulation contraindicated 7. Scrotal Wall thickening initially on Levaquin switch to Ceftriaxone by Urology specialist following 8. Acute Renal Injury on chronic kidney disease status post Renal transplant, to continue diuresis has Volume overload continue diuresis.Creatinine improving. as per Transplant surgeon not to re start Immunosuppression. 8. Volume Overload/Anasarca/left pleural effusion on diuresis and Albumin and Diuretics. 9. History of intracranial bleed Keppra for prophylaxis. 10. DM II continue Insulin and following. Uncontrolled his refused Insulin asked for adjustment of NPH. 11. Chronic back pain DVT prophylaxis -SCDs Code Status full Code. Discussed Condition With Patient, nurse and , Son and Daughter, all questions answered to the best of my abilities. continue working with Physical Therapy. Discharge Planning Discharge to [facility] at discharge. Mateo Ridley MD Nov 24, 2016 16:21
[2016-11-24] MEDS: SODIUM CHLORIDE 0.9% FLUSH 10 ML FLUSH IV FLUSH PRN (16:56)
[2016-11-24] MEDS: BUMETANIDE INJ 1 MG/4 ML VIAL IV PUSH SCH (18:00)
[2016-11-24] MEDS: CHLOROTHIAZIDE SOD 500 MG VIAL IV SCH (18:41)
[2016-11-24] MEDS: MELATONIN 5 MG TAB PO SCH (21:00)
[2016-11-25] VITALS (27 sets, daily range): BP systolic 100–123; BP diastolic 51–68; PULSE 72–91; RESP 18–24; TEMP 96.8–98.5; O2SAT 92–100
[2016-11-25 05:00] LABS: HEMATOCRIT 45.1 % (39.0-51.0); MEAN CELL VOLUME 82.2 FL (80.0-100.0); MEAN CORPUSCULAR HEMOGLOBIN 25.9 PG (27.0-34.0); MEAN CORPUSCULAR HGB CONC 31.5 % (32.0-36.0); PLATELET COUNT 84 TH/MM3 (150-450); RED BLOOD COUNT 5.49 MIL/MM3 (4.50-5.90); RED CELL DISTRIBUTION WIDTH 18.4 % (11.6-17.2)
[2016-11-25 05:05] LABS: REVIEW FLAG FINAL
[2016-11-25 05:44] LABS: CALCIUM-PROTEIN CORRECTED 7.4 MG/DL (8.5-10.1)
[2016-11-25] MEDS: INSULIN NovoLIN REGULAR SUPPLEMENTAL SCALE SQ SCH ×4 (07:00→21:00)
[2016-11-25] MEDS: BUMETANIDE INJ 1 MG/4 ML VIAL IV PUSH SCH ×3 (07:47→22:06)
[2016-11-25] MEDS: NITROGLYCERIN 2% OINT 1 GM PACKET TOPICAL SCH ×3 (07:48→22:08)
[2016-11-25] MEDS ORDERED: INSULIN HUMAN NPH/R 70/30 1,000 UNITS/10 ML VIAL SQ SCH (08:00)
[2016-11-25] MEDS: ASPIRIN 81 MG CHEW TAB CHEW SCH (09:00)
[2016-11-25] MEDS: FINASTERIDE 5 MG TAB PO SCH (09:04)
[2016-11-25] MEDS: MONTELUKAST SODIUM 10 MG TAB PO SCH (09:04)
[2016-11-25] MEDS: BETHANECHOL CHL 25 MG TAB PO SCH ×2 (09:04→22:07)
[2016-11-25] MEDS: CALCITRIOL 0.25 MCG CAP PO SCH (09:05)
[2016-11-25] MEDS: levETIRAcetam 500 MG TAB PO SCH ×2 (09:05→22:07)
[2016-11-25] MEDS: CALCIUM CARBONATE 1.25 GM (CA 500 MG) TAB PO SCH ×2 (09:05→22:08)
[2016-11-25] MEDS: SODIUM CHLORIDE 0.9% FLUSH 10 ML FLUSH IV FLUSH SCH ×2 (09:12→22:08)
[2016-11-25] MEDS: CHLOROTHIAZIDE SOD 500 MG VIAL IV SCH (09:13)
[2016-11-25] MEDS ORDERED: POTASSIUM CHLORIDE 20 MEQ CONTROLLED RELEASE TAB PO ONE ×2 (10:00→12:00)
--- NOTE | 2016-11-25 11:09 | HHI.PR ---
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 About one month ago patient developed generalized weakness and lower extremity edema and scrotal edema. He stated that he also had chest pain that started about 3 months ago, He increased his Lasix from 40 mg to 60 mg every oh daily. He stated that this helped his edema a lot. Patient also has scrotal edema and which he saw his urologist Dr. Lee and stated that he had epididymitis and was treated with Levaquin. He was told that he needs a total of about 1 month of treatment. Patient does have a history of multiple UTIs. Testicular ultrasound was also ordered as outpatient. he has history of CVA 2012, DM II Kidney transplant. 11/21: Seen in his bedroom in the presence of his , discussed with nurse Miss Holloway His Creatinine is decreases from 1.95 to 1.45, he is receiving Albumin, Improving calcium levels with replacement but he had extravasation and has erythema on both arms secondary to Calcium, this drips were discontinued by Nephrology specialist and switch to by mouth Calcium 11/22: Seen in the presence of his . discussed with nurse Miss Calvo. 11/23: His and Daughter, the patient during the night had US of the right arm found Superficial venous thrombosis, on the Cephalic vein and Basilic vein, not necessary to start anticoagulation for this veins will continue warm compresses and elevation of Right arm, accepted by [facility]. 11/24: and his son and Daughter in the room his refused Aspirin for the patient, also refused Insulin in the morning accepted to decrease the dose of Insulin NPH and continue Insulin sliding scale. his creatinine is stable, continue aggressive diuresis as per Nephrology specialist, Transplant surgeon recommended not to resume Immunosuppression, has Postsurgical Hypoparathyroidism, to continue Calcium and calcitriol today given Calcium gluconate 1 gram. 11/25: Stable in the presence of his and nurse Miss Cervantes seen in his bedroom, seen by astronaut mission specialist, recommended due to Non Sustained Ventricular Tachycardia, added Lopressor. as per Cardiology looks more Accelerated Idioventricular rhythm. recommends to hold Off Amiodarone given renal transplant, corrected Potassium with by mouth Potassium and following. No nausea, vomit or diarrhea, clinically improving. Objective Vital Signs Date Time Temp Pulse Resp B/P Pulse Ox O2 Delivery O2 Flow Rate FiO2 11/25/16 08:00 97.4 91 18 120/65 98 11/25/16 06:00 80 11/25/16 05:00 86 11/25/16 04:00 84 11/25/16 03:00 96.8 84 24 120/58 98 11/25/16 03:00 82 11/25/16 02:00 82 11/25/16 01:00 82 11/25/16 00:00 80 11/24/16 23:00 78 11/24/16 23:00 96.9 88 18 113/57 98 11/24/16 22:00 92 11/24/16 21:00 84 11/24/16 20:00 77 11/24/16 19:00 97.5 83 18 127/67 95 11/24/16 19:00 80 11/24/16 18:05 83 11/24/16 17:00 74 11/24/16 16:00 84 11/24/16 15:40 97.3 76 16 117/64 95 11/24/16 15:00 86 11/24/16 14:09 79 11/24/16 13:12 85 11/24/16 12:50 70 11/24/16 11:20 96.1 88 16 145/83 100 I/O 11/24/16 11/24/16 11/24/16 11/25/16 11/25/16 11/25/16 07:00 15:00 23:00 07:00 15:00 23:00 Intake Total 700 ml 120 ml Output Total 1300 ml 1850 ml Balance -600 ml -1730 ml Intake Oral 600 ml 120 ml IV Total 100 ml Output Urine Total 1300 ml 1850 ml # Bowel Movements 2 Result Diagram: 11/25/16 0425 11/25/16 0428 Imaging Last Impressions Upper Extremity Ultrasound 11/23/16 0000 Signed Impressions: Service Date/Time: Wednesday, November 23, 2016 01:31 - CONCLUSION: Nonocclusive thrombus in the right mid and distal basilic veins. Occlusive thrombus in the right cephalic vein. Fran Jose MD Chest X-Ray 11/20/16 1043 Signed Impressions: Service Date/Time: Sunday, November 20, 2016 11:01 - CONCLUSION: 1. Moderate left pleural effusion and left basilar density likely atelectasis. 2. Cardiomegaly and previous CABG. Fran Jose MD Scrotum Ultrasound 11/20/16 0000 Signed Impressions: Service Date/Time: Sunday, November 20, 2016 16:52 - CONCLUSION: 1. No testicular masses. 2. Marked scrotal skin thickening. Small hydroceles. Mild left varicocele. Kirby Kyle MD Renal Ultrasound 11/20/16 0000 Signed Impressions: Service Date/Time: Sunday, November 20, 2016 16:29 - CONCLUSION: 1. Transplant kidney in the right lower quadrant. No hydronephrosis. Atrophic [place] right kidney. Left kidney not visualized. Ascites. Kirby Kyle MD Procedures No procedures performed. Other Results Laboratory Tests Test 11/21/16 11/24/16 11/24/16 11/25/16 04:24 06:03 14:55 04:25 Magnesium Level 1.8 MG/DL Total Bilirubin 1.1 MG/DL Aspartate Amino Transf 18 U/L (AST/SGOT) Alanine Aminotransferase 13 U/L (ALT/SGPT) Alkaline Phosphatase 94 U/L Troponin I 0.10 NG/ML Parathyroid Hormone (Intact) 3.5 PG/ML Hepatitis B Surface Antigen NEGATIVE Hepatitis C Antibody NEGATIVE Phosphorus Level 3.6 MG/DL Albumin 2.3 GM/DL Urine Color YELLOW Urine Turbidity HAZY Urine pH 6.0 Urine Specific [place] 1.009 Urine Protein NEG mg/dL Urine Glucose (UA) NEG mg/dL Urine Ketones NEG mg/dL Urine Occult Blood LARGE Urine Nitrite NEG Urine Bilirubin NEG Urine Urobilinogen LESS THAN 2.0 MG/DL Urine Leukocyte Esterase LARGE Urine RBC 101 /hpf Urine WBC 135 /hpf Urine WBC Clumps MANY Urine Bacteria OCC /hpf Microscopic Urinalysis Comment CATH-CULTURE IND White Blood Count 8.0 TH/MM3 Red Blood Count 5.49 MIL/MM3 Hemoglobin 14.2 GM/DL Hematocrit 45.1 % Mean Corpuscular Volume 82.2 FL Mean Corpuscular Hemoglobin 25.9 PG Mean Corpuscular Hemoglobin 31.5 % Concent Red Cell Distribution Width 18.4 % Platelet Count 84 TH/MM3 Mean Platelet Volume 8.5 FL Test 11/25/16 04:28 Sodium Level 141 MEQ/L Potassium Level 3.0 MEQ/L Chloride Level 94 MEQ/L Carbon Dioxide Level 38.0 MEQ/L Anion Gap 9 MEQ/L Blood Urea Nitrogen 31 MG/DL Creatinine 0.86 MG/DL Estimat Glomerular Filtration 86 ML/MIN Rate Random Glucose 183 MG/DL Calcium Level 6.5 MG/DL Protein Corrected Calcium 7.4 MG/DL Total Protein 5.2 GM/DL Objective Remarks GENERAL: This is a frail male in NAD SKIN: No rashes. Cool and dry. B/L ext erythematous changes due to stasis. No warmth noted. HEAD: Atraumatic. Normocephalic. No temporal or scalp tenderness. EYES: Pupils equal round and reactive. Extraocular motions intact. No scleral icterus. No injection or drainage. ENT: Nose without bleeding, purulent drainage or septal hematoma. Throat without erythema, tonsillar hypertrophy or exudate. Uvula midline. Airway patent. NECK: Trachea midline. No JVD or lymphadenopathy. Supple, nontender, no meningeal signs. CARDIOVASCULAR: Irregular rate and irregular rhythm without murmurs, gallops, or rubs. White scar tissue mid chest. RESPIRATORY: Clear to auscultation. Breath sounds equal bilaterally. No wheezes , rales, or rhonchi. GASTROINTESTINAL: Abdomen soft, non-tender, nondistended. No hepato-splenomegaly , or palpable masses. No guarding. MUSCULOSKELETAL: Extremities without clubbing, cyanosis. No Edema. NEUROLOGICAL: Awake and alert. Alert and Oriented, no focal deficits. Pelvic: Scrotal area with erythema and swelling. Medications and IVs Current Medications Medications (Trade) Dose Ordered Sig/Tj Route Start Time Stop Time Status Last Admin (NS Flush) 2 ml UNSCH PRN IVF 11/20/16 10:45 (NS Flush) 2 ml UNSCH PRN IV FLUSH 11/20/16 14:00 11/24/16 16:56 (NS Flush) 2 ml BID IV FLUSH 11/20/16 21:00 11/25/16 09:12 (Tylenol) 650 mg Q4H PRN PO 11/20/16 14:00 11/24/16 15:27 (Narcan Inj) 0.4 mg UNSCH PRN IV 11/20/16 14:00 (Milk Of Magnesia Liq) 30 ml Q12H PRN PO 11/20/16 14:00 Calcium Carbonate 1000 mg 1,000 mg BID PO 11/20/16 14:15 11/25/16 09:05 (Rocephin Inj/NS Inj) 100 ml @ 200 mls/hr Q24H IV 11/20/16 15:00 11/24/16 15:28 (D50w (Vial) Inj) 50 ml UNSCH PRN IV 11/20/16 14:45 (Glucagon Inj) 1 mg UNSCH PRN OTHER 11/20/16 14:45 (Nitroglycerin 2% Oint) 0.5 inch Q8HR TOPICAL 11/20/16 22:00 11/25/16 07:48 (Aspirin Chew) 81 mg DAILY CHEW 11/20/16 16:00 11/21/16 08:09 (Urecholine) 25 mg BID PO 11/20/16 21:00 11/25/16 09:04 ([place] 5-325 Mg) 1 tab QID PRN PO 11/20/16 16:00 11/21/16 23:19 (Keppra) 500 mg BID PO 11/20/16 21:00 11/25/16 09:05 (Singulair) 10 mg DAILY PO 11/21/16 09:00 11/25/16 09:04 (Proscar) 5 mg DAILY PO 11/21/16 09:00 11/25/16 09:04 (Melatonin) 10 mg HS PO 11/20/16 21:00 11/23/16 22:55 (Drisdol) 50,000 units Q7D PO 11/20/16 20:00 11/20/16 21:23 (Rocaltrol) 0.5 mcg DAILY PO 11/24/16 09:00 11/25/16 09:05 (NovoLIN 70/30 INJ) 7 units DAILY@17 SQ 11/24/16 17:00 11/24/16 17:01 (NovoLIN 70/30 INJ) 9 units DAILY@08 SQ 11/25/16 08:00 11/25/16 09:23 (Bumex Inj) 2 mg Q8HR IV PUSH 11/24/16 18:00 11/25/16 07:47 (Diuril Inj) 500 mg DAILY IV 11/24/16 18:00 11/25/16 09:13 (KCl) 40 meq ONCE ONCE PO 11/25/16 12:00 11/25/16 12:01 A/P Assessment and Plan 76-year-old male past medical history of coronary artery disease status post CABG, penile transplant, chronic kidney disease status post renal transplant, chronic hypocalcemia, type 2 diabetes insulin-dependent, chronic atrial fibrillation, BPH, and history of multiple intracranial bleed who presented with generalized weakness and scrotal/lower extremity edema 1. Generalized weakness PT when he is more stable at this time weak not able to get Physical Therapy. most likely worsened due to Severe Hypocalcemia, Volume overload, on diuresis. continue Aggressive diuresis by Nephrology 2. Severe Hypocalcemia replaced and following, Vitamin d deficiency replacement. 3. Postsurgical Hypoparathyroidism, to continue Calcium replacement. 4. Hypertension controlled. 5. Non sustained Ventricular tachycardia/Atrial Fibrillation/for Cardiology more for Accelerated Idioventricular rhythm. on BB held Amiodarone. 5. Atypical Chest pain in a patient with CAD status post CABG, mildly elevated Troponin level as per astronaut mission specialist non candidate for intervention, he has history of Multiple intracranial bleed anticoagulation contraindicated 7. Scrotal Wall thickening initially on Levaquin switch to Ceftriaxone by Urology specialist following, UTI, Urology specialist asked for [place] cath placement. 8. Acute Renal Injury on chronic kidney disease status post Renal transplant, to continue diuresis better response at this time to diuretics, as per Transplant surgeon not to re start Immunosuppression. 8. Volume Overload/Anasarca/left pleural effusion on diuresis and Albumin and Diuretics. 9. History of intracranial bleed Keppra for prophylaxis. 10. DM II continue Insulin and following. Mild uncontrol adjusted Insulins. 11. Chronic back pain DVT prophylaxis -SCDs Code Status full Code. Discussed Condition With Patient, and nurse Miss Cervantes, all questions answered to the best of my abilities. Discharge Planning Discharge to [place] [facility] at discharge. Mateo Ridley MD Nov 25, 2016 11:09 continue working with Physical Therapy. Discharge Planning Discharge to [place] [facility] at discharge. Mateo Ridley MD Nov 25, 2016 11:09
--- NOTE | 2016-11-25 14:28 | PD.CARD.PN ---
Subjective Subjective Remarks Called to see patient for multiple runs of NSVT; he was, and remains, asymptomatic. Objective Medications Administered Medications Medications (Trade) Dose Ordered Sig/Tj Route PRN Reason Start Time Stop Time Status Last Admin Dose Admin Sodium Chloride (NS Flush) 2 ml UNSCH PRN IV FLUSH FLUSH AFTER USING IV ACCESS 11/20/16 14:00 11/24/16 16:56 Sodium Chloride (NS Flush) 2 ml BID IV FLUSH 11/20/16 21:00 11/25/16 09:12 Acetaminophen (Tylenol) 650 mg Q4H PRN PO TEMP > 100.4 11/20/16 14:00 11/24/16 15:27 Calcium Carbonate 1000 mg 1,000 mg BID PO 11/20/16 14:15 11/25/16 09:05 Ceftriaxone Sodium/Sodium Chloride (Rocephin Inj/NS Inj) 100 ml @ 200 mls/hr Q24H IV 11/20/16 15:00 11/24/16 15:28 Nitroglycerin (Nitroglycerin 2% Oint) 0.5 inch Q8HR TOPICAL 11/20/16 22:00 11/25/16 07:48 Aspirin (Aspirin Chew) 81 mg DAILY CHEW 11/20/16 16:00 11/21/16 08:09 Bethanechol Chloride (Urecholine) 25 mg BID PO 11/20/16 21:00 11/25/16 09:04 Acetaminophen/ Hydrocodone Bitart ([place] 5-325 Mg) 1 tab QID PRN PO PAIN 1-10 11/20/16 16:00 11/21/16 23:19 Levetriacetam (Keppra) 500 mg BID PO 11/20/16 21:00 11/25/16 09:05 Montelukast Sodium (Singulair) 10 mg DAILY PO 11/21/16 09:00 11/25/16 09:04 Finasteride (Proscar) 5 mg DAILY PO bph 11/21/16 09:00 11/25/16 09:04 Melatonin (Melatonin) 10 mg HS PO 11/20/16 21:00 11/23/16 22:55 Ergocalciferol (Drisdol) 50,000 units Q7D PO 11/20/16 20:00 11/20/16 21:23 Calcitriol (Rocaltrol) 0.5 mcg DAILY PO 11/24/16 09:00 11/25/16 09:05 Insulin Human Isoph/Insulin Regular (NovoLIN 70/30 INJ) 7 units DAILY@17 SQ 11/24/16 17:00 11/24/16 17:01 Insulin Human Isoph/Insulin Regular (NovoLIN 70/30 INJ) 9 units DAILY@08 SQ 11/25/16 08:00 11/25/16 09:23 Bumetanide (Bumex Inj) 2 mg Q8HR IV PUSH 11/24/16 18:00 11/25/16 07:47 Chlorothiazide Sodium (Diuril Inj) 500 mg DAILY IV 11/24/16 18:00 11/25/16 09:13 Vital Signs / I&O Vital Signs Date Time Temp Pulse Resp B/P Pulse Ox O2 Delivery O2 Flow Rate FiO2 11/25/16 14:00 91 11/25/16 13:00 82 11/25/16 12:18 75 11/25/16 11:13 97.6 86 19 123/68 96 11/25/16 11:00 84 11/25/16 10:00 82 11/25/16 09:00 78 11/25/16 08:00 80 11/25/16 08:00 97.4 91 18 120/65 98 11/25/16 07:00 72 11/25/16 06:00 80 11/25/16 05:00 86 11/25/16 04:00 84 11/25/16 03:00 96.8 84 24 120/58 98 11/25/16 03:00 82 11/25/16 02:00 82 11/25/16 01:00 82 11/25/16 00:00 80 11/24/16 23:00 78 11/24/16 23:00 96.9 88 18 113/57 98 11/24/16 22:00 92 11/24/16 21:00 84 11/24/16 20:00 77 11/24/16 19:00 97.5 83 18 127/67 95 11/24/16 19:00 80 11/24/16 18:05 83 11/24/16 17:00 74 11/24/16 16:00 84 11/24/16 15:40 97.3 76 16 117/64 95 11/24/16 15:00 86 I/O 11/24/16 11/24/16 11/24/16 11/25/16 11/25/16 11/25/16 07:00 15:00 23:00 07:00 15:00 23:00 Intake Total 700 ml 120 ml Output Total 1300 ml 1850 ml Balance -600 ml -1730 ml Intake Oral 600 ml 120 ml IV Total 100 ml Output Urine Total 1300 ml 1850 ml # Bowel Movements 2 Physical Exam GENERAL: This is a well-nourished, well-developed patient, in no apparent distress. CARDIOVASCULAR: Regular rate and rhythm without murmurs, gallops, or rubs. RESPIRATORY: decreased breath sounds GASTROINTESTINAL: Abdomen soft, non-tender, nondistended. Normal active bowel sounds MUSCULOSKELETAL: mild LE edema NEURO: Alert & Oriented x4 to person, place, time, situation. Moves all ext x4 Laboratory Laboratory Tests Test 11/24/16 11/25/16 11/25/16 14:55 04:25 04:28 Urine Color YELLOW Urine Turbidity HAZY Urine pH 6.0 Urine Specific [place] 1.009 Urine Protein NEG mg/dL Urine Glucose (UA) NEG mg/dL Urine Ketones NEG mg/dL Urine Occult Blood LARGE Urine Nitrite NEG Urine Bilirubin NEG Urine Urobilinogen LESS THAN 2.0 MG/DL Urine Leukocyte Esterase LARGE Urine RBC 101 /hpf Urine WBC 135 /hpf Urine WBC Clumps MANY Urine Bacteria OCC /hpf Microscopic Urinalysis Comment CATH-CULTURE IND White Blood Count 8.0 TH/MM3 Red Blood Count 5.49 MIL/MM3 Hemoglobin 14.2 GM/DL Hematocrit 45.1 % Mean Corpuscular Volume 82.2 FL Mean Corpuscular Hemoglobin 25.9 PG Mean Corpuscular Hemoglobin 31.5 % Concent Red Cell Distribution Width 18.4 % Platelet Count 84 TH/MM3 Mean Platelet Volume 8.5 FL Sodium Level 141 MEQ/L Potassium Level 3.0 MEQ/L Chloride Level 94 MEQ/L Carbon Dioxide Level 38.0 MEQ/L Anion Gap 9 MEQ/L Blood Urea Nitrogen 31 MG/DL Creatinine 0.86 MG/DL Estimat Glomerular Filtration 86 ML/MIN Rate Random Glucose 183 MG/DL Calcium Level 6.5 MG/DL Protein Corrected Calcium 7.4 MG/DL Total Protein 5.2 GM/DL Imaging Last Impressions Upper Extremity Ultrasound 11/23/16 0000 Signed Impressions: Service Date/Time: Wednesday, November 23, 2016 01:31 - CONCLUSION: Nonocclusive thrombus in the right mid and distal basilic veins. Occlusive thrombus in the right cephalic vein. Fran Jose MD Chest X-Ray 11/20/16 1043 Signed Impressions: Service Date/Time: Sunday, November 20, 2016 11:01 - CONCLUSION: 1. Moderate left pleural effusion and left basilar density likely atelectasis. 2. Cardiomegaly and previous CABG. Fran Jose MD Scrotum Ultrasound 11/20/16 0000 Signed Impressions: Service Date/Time: Sunday, November 20, 2016 16:52 - CONCLUSION: 1. No testicular masses. 2. Marked scrotal skin thickening. Small hydroceles. Mild left varicocele. Kirby Kyle MD Renal Ultrasound 11/20/16 0000 Signed Impressions: Service Date/Time: Sunday, November 20, 2016 16:29 - CONCLUSION: 1. Transplant kidney in the right lower quadrant. No hydronephrosis. Atrophic [place] right kidney. Left kidney not visualized. Ascites. Kirby Kyle MD Assessment and Plan Problem List: (1) NSVT (nonsustained ventricular tachycardia) Assessment and Plan: multiple runs, some longer ones appear more like AIVR; will add lopressor, will hold off on amio for now given renal transplant, his K + was only 3.0 and has been replaced, repeat labs pending. LVEF borderline at 35-40%; will defer any ischemic workup to Dr. Gray (2) Cardiomyopathy Assessment and Plan: LVEF 35-40 (3) Atrial fibrillation, permanent Assessment and Plan: Add low dose metoprolol (4) Hypoalbuminemia (5) Left bundle branch block (6) Troponin level elevated (7) Anasarca (8) Thrombophlebitis arm (9) Pleural effusion (10) Chest pain at rest Assessment and Plan: poor candidate for invasive therapy. Beta keya added; none today (11) Intracranial hemorrhage Assessment and Plan Dr. Gray will resume care in the AM Amado Simmons MD Nov 25, 2016 14:28
[2016-11-25] MEDS: SODIUM CHLORIDE 0.9% FLUSH 10 ML FLUSH IV FLUSH PRN (14:56)
[2016-11-25] MEDS: cefTRIAXone INJ 1,000 MG in SODIUM CHLORIDE 0.9% INJ 100 ML IV SCH (14:57)
[2016-11-25] MEDS: METOPROLOL TARTRATE 25 MG TAB PO SCH ×2 (14:57→22:07)
[2016-11-25] MEDS: INSULIN HUMAN NPH/R 70/30 1,000 UNITS/10 ML VIAL SQ SCH (17:00)
[2016-11-25] MEDS ORDERED: POTASSIUM CHLORIDE 10 MEQ CONTROLLED RELEASE TAB PO ONE (17:00)
--- NOTE | 2016-11-25 17:08 | HHI.NPPN ---
Subjective History of Present Illness The patient is a 76 yo [place] male who was brought to this facility for evaluation of extensive fluid retention. and family are the primary historians as he has some baseline dementia s/p CVA. Has been following his PCP, Dr. Beasley, for fluid retention. Was admitted in August for PNA and reports that he has had fluid retention since then. Was started on Lasix 40mg BID and was increased about 3 weeks ago to 60mg BID with only minimal response. He is a LRD kidney transplant patient in 1998 from his son and has not been on any immunosuppressives for a number of years according to his . His initial cause of renal failure is diabetes and was a HD via permacath for a few months before his transplant. According to family, his renal functions have been stable for his entire post-transplant life. Other PMHx of CAD s/p CABG, no known hx of CHF, DM, HTN, BPH without obstruction. No NSAID use. Admitting SCr of 1.94. August 2016 was 1.34 Prior levels have fluctuated between 0.8-1.5 ( Interval History Family by bedside. They indicated that the patient was much more alert and eating. Review of Systems General Constitutional: Fatigue Cardiovascular Cardiac: Edema Objective Data Data 11/24/16 11/25/16 19:00 07:00 Intake Total 700 ml 120 ml Output Total 1300 ml 1850 ml Balance -600 ml -1730 ml Intake Oral 600 ml 120 ml IV Total 100 ml Output Urine Total 1300 ml 1850 ml # Bowel Movements 2 Vital Signs Date Time Temp Pulse Resp B/P Pulse Ox O2 Delivery O2 Flow Rate FiO2 11/25/16 16:46 82 11/25/16 15:03 98.5 88 19 104/51 98 11/25/16 15:00 78 11/25/16 14:00 91 11/25/16 13:00 82 11/25/16 12:18 75 11/25/16 11:13 97.6 86 19 123/68 96 11/25/16 11:00 84 11/25/16 10:00 82 11/25/16 09:00 78 11/25/16 08:00 80 11/25/16 08:00 97.4 91 18 120/65 98 11/25/16 07:00 72 11/25/16 06:00 80 11/25/16 05:00 86 11/25/16 04:00 84 11/25/16 03:00 96.8 84 24 120/58 98 11/25/16 03:00 82 11/25/16 02:00 82 11/25/16 01:00 82 11/25/16 00:00 80 11/24/16 23:00 78 11/24/16 23:00 96.9 88 18 113/57 98 11/24/16 22:00 92 11/24/16 21:00 84 11/24/16 20:00 77 11/24/16 19:00 97.5 83 18 127/67 95 11/24/16 19:00 80 11/24/16 18:05 83 -: 11/25/16 0425 11/25/16 1540 Microbiology 11/25/16 Genital Culture, Received Pending Medication Review Current Medications Sodium Chloride 2 ml 2 ml UNSCH PRN IVF FLUSH AFTER USING IV ACCESS; Start at 10:45 Calcium Gluconate 1 gm/Dextrose 110 ml @ 110 mls/hr ONCE ONCE IV Last administered on 11/20/16 12:24; Start 11/20/16 at 11:00; Stop 11/20/16 at 11:59 ; Status DC Calcium Gluconate/ Dextrose (Calcium Gluconate Inj/D5W 100 ml Inj) 110 ml @ 110 mls/hr ONCE ONCE IV Last administered on 11/20/16 16:52; Start 11/20/16 at 14:00; Stop 11/20/16 at 14:59; Status DC Sodium Chloride (NS Flush) 2 ml UNSCH PRN IV FLUSH FLUSH AFTER USING IV ACCESS Last administered on 11/25/16 14:56; Start 11/20/16 at 14:00 Sodium Chloride (NS Flush) 2 ml BID IV FLUSH Last administered on 11/25/16 09: 12; Start 11/20/16 at 21:00 Acetaminophen (Tylenol) 650 mg Q4H PRN PO TEMP > 100.4 Last administered on 15:27; Start 11/20/16 at 14:00 Naloxone HCl (Narcan Inj) 0.4 mg UNSCH PRN IV SEE LABEL COMMENTS; Start at 14:00 Magnesium Hydroxide (Milk Of Magnesia Liq) 30 ml Q12H PRN PO MILD - MODERATE CONSTIPATION; Start 11/20/16 at 14:00 Calcium Carbonate 1000 mg 1,000 mg BID PO Last administered on 11/25/16 09:05 ; Start 11/20/16 at 14:15 Magnesium Sulfate/ Dextrose 100 ml @ 100 mls/hr ONCE ONCE IV Last administered on 11/20/16 16:29; Start 11/20/16 at 14:15; Stop 11/20/16 at 15:14 ; Status DC Calcium Chloride 10 gm/Sodium Chloride 1,000 ml @ 50 mls/hr Q20H IV Last administered on 11/21/16 12:13; Start 11/20/16 at 15:00; Stop 11/21/16 at 17:45 ; Status DC Ceftriaxone Sodium/Sodium Chloride (Rocephin Inj/NS Inj) 100 ml @ 200 mls/hr Q24H IV Last administered on 11/25/16 14:57; Start 11/20/16 at 15:00 Furosemide (Lasix Inj) 40 mg BID@09,18 IV PUSH Last administered on 11/23/16 09:16; Start 11/20/16 at 18:00; Stop 11/23/16 at 10:43; Status DC Dextrose (D50w (Vial) Inj) 50 ml UNSCH PRN IV HYPOGLYCEMIA-SEE COMMENTS; Start 11/20/16 at 14:45 Glucagon (Glucagon Inj) 1 mg UNSCH PRN OTHER HYPOGLYCEMIA-SEE COMMENTS; Start 11/20/16 at 14:45 Insulin Aspart (NovoLOG SUPPLEMENTAL SCALE) 1 ACHS SLIDING SCALE SQ Last administered on 11/23/16 16:00; Start 11/20/16 at 16:00; Stop 11/23/16 at 18:05 ; Status DC Nitroglycerin (Nitroglycerin 2% Oint) 0.5 inch Q8HR TOPICAL Last administered on 11/25/16 07:48; Start 11/20/16 at 22:00 Aspirin (Aspirin Chew) 81 mg DAILY PO ; Start 11/20/16 at 15:45; Stop 11/20/16 at 15:55; Status DC Insulin Human Isoph/Insulin Regular (NovoLIN 70/30 INJ) 10 units DAILY@08 SQ Last administered on 11/21/16 08:11; Start 11/21/16 at 08:00; Stop 11/23/16 at 17:27; Status DC Insulin Human Isoph/Insulin Regular (NovoLIN 70/30 INJ) 5 units DAILY@17 SQ Last administered on 11/21/16 17:35; Start 11/20/16 at 17:00; Stop 11/23/16 at 17:27; Status DC Aspirin (Aspirin Chew) 81 mg DAILY CHEW Last administered on 11/21/16 08:09; Start 11/20/16 at 16:00 Albuterol Sulfate (Albuterol Neb) 2.5 mg TID NEB PRN NEB SHORTNESS OF BREATH Last administered on 11/23/16 09:59; Start 11/20/16 at 16:00 Bethanechol Chloride (Urecholine) 25 mg BID PO Last administered on 11/25/16 09:04; Start 11/20/16 at 21:00 Acetaminophen/ Hydrocodone Bitart ([place] 5-325 Mg) 1 tab QID PRN PO PAIN 1-10 Last administered on 11/21/16 23:19; Start 11/20/16 at 16:00 Levetriacetam (Keppra) 500 mg BID PO Last administered on 11/25/16 09:05; Start 11/20/16 at 21:00 Montelukast Sodium (Singulair) 10 mg DAILY PO Last administered on 11/25/16 09 :04; Start 11/21/16 at 09:00 Finasteride (Proscar) 5 mg DAILY PO bph Last administered on 11/25/16 09:04; Start 11/21/16 at 09:00 Melatonin (Melatonin) 10 mg HS PO Last administered on 11/23/16 22:55; Start 11/20/16 at 21:00 Ergocalciferol (Drisdol) 50,000 units Q7D PO Last administered on 11/20/16 21: 23; Start 11/20/16 at 20:00 Albumin Human (Albumin 25% Inj) 12.5 gm BID IV Last administered on 11/24/16 08:44; Start 11/20/16 at 21:00; Stop 11/24/16 at 17:51; Status DC Calcitriol (Rocaltrol) 0.25 mcg DAILY PO Last administered on 11/23/16 09:16; Start 11/21/16 at 18:00; Stop 11/23/16 at 10:43; Status DC Calcitriol (Rocaltrol) 0.5 mcg DAILY PO Last administered on 11/25/16 09:05; Start 11/24/16 at 09:00 Furosemide (Lasix Inj) 60 mg Q8H IV PUSH Last administered on 11/24/16 16:54; Start 11/23/16 at 17:00; Stop 11/24/16 at 17:52; Status DC Acetazolamide Sodium (Diamox Inj) 500 mg ONCE ONCE IV PUSH Last administered on 11/23/16 11:39; Start 11/23/16 at 11:00; Stop 11/23/16 at 11:01; Status DC Potassium Chloride (KCl) 20 meq ONCE ONCE PO Last administered on 11/23/16 17 :54; Start 11/23/16 at 17:00; Stop 11/23/16 at 17:01; Status DC Insulin Human Isoph/Insulin Regular (NovoLIN 70/30 INJ) 7 units DAILY@17 SQ Last administered on 11/24/16 17:01; Start 11/24/16 at 17:00; Stop 11/25/16 at 15:17; Status DC Insulin Human Isoph/Insulin Regular (NovoLIN 70/30 INJ) 14 units DAILY@08 SQ ; Start 11/24/16 at 08:00; Stop 11/24/16 at 16:24; Status DC Insulin Human Regular (NovoLIN R SUPPLEMENTAL SCALE) 1 ACHS SLIDING SCALE SQ Last administered on 11/25/16 11:00; Start 11/23/16 at 21:00 Calcium Gluconate (Calcium Gluconate Inj) 1 gm ONCE ONCE IV PUSH Last administered on 11/24/16 10:42; Start 11/24/16 at 10:30; Stop 11/24/16 at 10:31 ; Status DC Insulin Human Isoph/Insulin Regular (NovoLIN 70/30 INJ) 9 units DAILY@08 SQ Last administered on 11/25/16 09:23; Start 11/25/16 at 08:00; Stop 11/25/16 at 15:17; Status DC Bumetanide (Bumex Inj) 2 mg Q8HR IV PUSH Last administered on 11/25/16 16:16; Start 11/24/16 at 18:00 Chlorothiazide Sodium (Diuril Inj) 500 mg DAILY IV Last administered on 09:13; Start 11/24/16 at 18:00 Acetazolamide Sodium (Diamox Inj) 250 mg ONCE ONCE IV PUSH Last administered on 11/24/16 22:00; Start 11/24/16 at 23:00; Stop 11/24/16 at 23:01; Status DC Potassium Chloride (KCl) 40 meq ONCE ONCE PO Last administered on 11/25/16 10 :00; Start 11/25/16 at 10:00; Stop 11/25/16 at 10:01; Status DC Potassium Chloride (KCl) 40 meq ONCE ONCE PO Last administered on 11/25/16 11 :45; Start 11/25/16 at 12:00; Stop 11/25/16 at 12:01; Status DC Metoprolol Tartrate (Lopressor) 25 mg Q12HR PO Last administered on 11/25/16 14:57; Start 11/25/16 at 14:30 Insulin Human Isoph/Insulin Regular (NovoLIN 70/30 INJ) 8 units DAILY@17 SQ ; Start 11/25/16 at 17:00 Insulin Human Isoph/Insulin Regular (NovoLIN 70/30 INJ) 10 units DAILY@08 SQ ; Start 11/26/16 at 08:00 Physical Exam General Appearance: No Acute Distress Eyes Eye Exam: Sclera White Neck Neck Exam: Trachea Midline Pulmonary Resp Exam: Clear Bilaterally, Breath Sounds Equal, No Distress, Diminished Breath Sounds Cardiology CV Exam: Normal Sinus Rhythm, Good Perfusion, Irregular Gastrointestinal/Abdomen GI Exam: Soft, Non-Tender Musculoskeletal MS Exam: Good Strength Integumentary Skin Exam: Clear, Warm Extremeties Extremities Exam: Moderate Edema (involving legs and hips and torso. ) Assessment/Plan Problem List: (1) DEJA (acute kidney injury) Plan: The patient's renal indices appear to have improved since yesterday and his urine output is quite good with the change to bumetanide and Diuril. Potassium supplementation as ordered with follow-up tomorrow. We'll consider changing bumetanide to twice a day dosing tomorrow either by mouth or IV depending upon clinical status.. Medications should be adjusted for the patient's renal decline. Avoid nephrotoxic medications including NSAIDs and iodinated contrast dyes. Avoid gadolinium when eGFR <30. (2) Kidney transplant status, living related donor Plan: Transplanted in 1998 LRD. Was on immunosuppressives, but has not been on for 10 years Appreciate input from transplant surgeon who suggests not resuming. Noted cardiology has concerns regarding administration of amiodarone in the setting of the kidney transplant. Uncertain of specific concern. If cardiology would like to discuss with me will be happy to review any concerns. (3) Anasarca Plan: Reviewed echo. EF of 40%, mild-mod TR, aortic sclerosis, mild pulmonary hypertension Adjust diuretics as ordered Continue to monitor I&Os (4) Postsurgical hypoparathyroidism Plan: Calcium level has improved albeit slowly. Continue calcitriol to improve calcium absorption as well as by mouth calcium carbonate. Apparently the primary care physician requested that I be notified prior to 6 AM today for the calcium level that was 7.0. Would not administer IV calcium unless the patient has symptomatic hypocalcemia and definitely not for calcium of that level.. The goal of therapy with calcitriol would be to maintain the calcium level slightly low or at low normal to try to avoid the development of hypercalciuria which can occur in this setting with calcitriol. There is a risk of nephrocalcinosis with hypercalciuria. Would subsequently do a 24-hour urine for calcium and subsequently every 6 monthly thereafter if stability is achieved. This was discussed with the patient's and patient and I also strongly advised that they find a pinner printed circuit boards to follow-up with as an outpatient (5) Hypocalcemia Plan: Calcium gluconate ordered today (6) Vitamin D deficiency Plan: Repletion as ordered (7) DM2 (diabetes mellitus, type 2) Plan: Mgmt as per primary (8) Hypertension Plan: As per hx. Hypotensive in house. Medications held. Plan Patient's creatinine is stable however it may not be registered representative the patient' s renal function given significant resistance to diuresis. Patient still has generalized fluid retention approaching anasarca. Will change to bumetanide with Diuril 1 dose Diamox also later today because of elevated bicarbonate level. If no improvement in diuresis will switch patient to bumetanide drip. The exam, history, and the medical decision-making described in the above note were completed with the assistance of the RUSTY. I reviewed and agree with the findings presented. I attest that I had a [id number] encounter with the patient on the same day, and personally performed and documented my assessment and findings in the medical record. Lizz Pro MD Nov 25, 2016 17:08
[2016-11-25] MEDS: MELATONIN 5 MG TAB PO SCH (22:08)
[2016-11-26] VITALS (26 sets, daily range): BP systolic 106–138; BP diastolic 56–70; PULSE 61–90; RESP 16–26; TEMP 97.5–98.6; O2SAT 94–99
[2016-11-26] MEDS: BUMETANIDE INJ 1 MG/4 ML VIAL IV PUSH SCH ×2 (06:44→17:59)
[2016-11-26] MEDS: NITROGLYCERIN 2% OINT 1 GM PACKET TOPICAL SCH ×3 (06:44→22:34)
[2016-11-26] MEDS: INSULIN NovoLIN REGULAR SUPPLEMENTAL SCALE SQ SCH ×4 (07:00→21:00)
[2016-11-26 07:43] LABS: BICARBONATE 44.9 MEQ/L (21.0-32.0); CALCIUM-PROTEIN CORRECTED 7.9 MG/DL (8.5-10.1); MAGNESIUM 1.6 MG/DL (1.5-2.5); POTASSIUM 3.2 MEQ/L (3.5-5.1)
[2016-11-26] MEDS: INSULIN HUMAN NPH/R 70/30 1,000 UNITS/10 ML VIAL SQ SCH ×2 (08:00→16:54)
[2016-11-26] MEDS ORDERED: POTASSIUM CHLORIDE 20 MEQ CONTROLLED RELEASE TAB PO ONE (08:15)
[2016-11-26] MEDS: POTASSIUM CHLORIDE 20 MEQ CONTROLLED RELEASE TAB PO SCH ×3 (09:00→17:58)
[2016-11-26] MEDS: ASPIRIN 81 MG CHEW TAB CHEW SCH (09:00)
[2016-11-26] MEDS: CALCITRIOL 0.25 MCG CAP PO SCH (09:16)
[2016-11-26] MEDS: CALCIUM CARBONATE 1.25 GM (CA 500 MG) TAB PO SCH ×2 (09:17→22:34)
[2016-11-26] MEDS: METOPROLOL TARTRATE 25 MG TAB PO SCH ×2 (09:17→22:33)
[2016-11-26] MEDS: MONTELUKAST SODIUM 10 MG TAB PO SCH (09:18)
[2016-11-26] MEDS: SODIUM CHLORIDE 0.9% FLUSH 10 ML FLUSH IV FLUSH SCH ×2 (09:18→22:34)
[2016-11-26] MEDS: BETHANECHOL CHL 25 MG TAB PO SCH ×2 (09:18→22:32)
[2016-11-26] MEDS: levETIRAcetam 500 MG TAB PO SCH ×2 (09:18→22:33)
[2016-11-26] MEDS: FINASTERIDE 5 MG TAB PO SCH (09:19)
--- NOTE | 2016-11-26 09:38 | HHI.NPPN ---
Subjective History of Present Illness The patient is a 76 yo [place] male who was brought to this facility for evaluation of extensive fluid retention. and family are the primary historians as he has some baseline dementia s/p CVA. Has been following his PCP, Dr. Beasley, for fluid retention. Was admitted in August for PNA and reports that he has had fluid retention since then. Was started on Lasix 40mg BID and was increased about 3 weeks ago to 60mg BID with only minimal response. He is a LRD kidney transplant patient in 1998 from his son and has not been on any immunosuppressives for a number of years according to his . His initial cause of renal failure is diabetes and was a HD via permacath for a few months before his transplant. According to family, his renal functions have been stable for his entire post-transplant life. Other PMHx of CAD s/p CABG, no known hx of CHF, DM, HTN, BPH without obstruction. No NSAID use. Admitting SCr of 1.94. August 2016 was 1.34 Prior levels have fluctuated between 0.8-1.5 ( Interval History Pt more alert. UOP much improved over weekend. (Sarah Carbajal) Review of Systems Cardiovascular Cardiac: Edema (Sarah Carbajal) Objective Data Data 11/25/16 11/26/16 19:00 07:00 Intake Total 590 ml 595 ml Output Total 2900 ml 2150 ml Balance -2310 ml -1555 ml Intake Oral 480 ml 595 ml IV Total 110 ml Output Urine Total 2900 ml 2150 ml # Bowel Movements 1 Vital Signs Date Time Temp Pulse Resp B/P Pulse Ox O2 Delivery O2 Flow Rate FiO2 11/26/16 08:00 86 11/26/16 07:00 69 11/26/16 07:00 97.7 83 18 128/63 95 11/26/16 06:00 74 11/26/16 05:00 70 11/26/16 04:00 74 11/26/16 03:00 76 11/26/16 03:00 97.5 81 22 108/56 94 11/26/16 02:00 76 11/26/16 01:00 68 11/26/16 00:00 73 11/25/16 23:00 97.4 78 24 100/53 100 11/25/16 23:00 76 11/25/16 22:00 82 11/25/16 21:05 92 Nasal Cannula 3.00 11/25/16 21:00 76 11/25/16 20:00 87 11/25/16 19:00 98.1 89 22 118/57 97 11/25/16 19:00 78 11/25/16 18:16 72 11/25/16 17:04 81 11/25/16 16:46 82 11/25/16 15:03 98.5 88 19 104/51 98 11/25/16 15:00 78 11/25/16 14:00 91 11/25/16 13:00 82 11/25/16 12:18 75 11/25/16 11:13 97.6 86 19 123/68 96 11/25/16 11:00 84 11/25/16 10:00 82 (Sarah Carbajal) -: 11/25/16 0425 11/26/16 0640 Microbiology 11/25/16 Genital Culture, Received Pending Imaging Last Impressions Upper Extremity Ultrasound 11/23/16 0000 Signed Impressions: Service Date/Time: Wednesday, November 23, 2016 01:31 - CONCLUSION: Nonocclusive thrombus in the right mid and distal basilic veins. Occlusive thrombus in the right cephalic vein. Fran Jose MD Chest X-Ray 11/20/16 1043 Signed Impressions: Service Date/Time: Sunday, November 20, 2016 11:01 - CONCLUSION: 1. Moderate left pleural effusion and left basilar density likely atelectasis. 2. Cardiomegaly and previous CABG. Fran Jose MD Scrotum Ultrasound 11/20/16 0000 Signed Impressions: Service Date/Time: Sunday, November 20, 2016 16:52 - CONCLUSION: 1. No testicular masses. 2. Marked scrotal skin thickening. Small hydroceles. Mild left varicocele. Kirby Kyle MD Renal Ultrasound 11/20/16 0000 Signed Impressions: Service Date/Time: Sunday, November 20, 2016 16:29 - CONCLUSION: 1. Transplant kidney in the right lower quadrant. No hydronephrosis. Atrophic [place] right kidney. Left kidney not visualized. Ascites. Kirby Kyle MD Medication Review Current Medications Medications (Trade) Dose Ordered Sig/Tj Route Start Time Stop Time Status Last Admin (NS Flush) 2 ml UNSCH PRN IVF 11/20/16 10:45 (NS Flush) 2 ml UNSCH PRN IV FLUSH 11/20/16 14:00 11/25/16 14:56 (NS Flush) 2 ml BID IV FLUSH 11/20/16 21:00 11/26/16 09:18 (Tylenol) 650 mg Q4H PRN PO 11/20/16 14:00 11/24/16 15:27 (Narcan Inj) 0.4 mg UNSCH PRN IV 11/20/16 14:00 (Milk Of Magnesia Liq) 30 ml Q12H PRN PO 11/20/16 14:00 Calcium Carbonate 1000 mg 1,000 mg BID PO 11/20/16 14:15 11/26/16 09:17 (Rocephin Inj/NS Inj) 100 ml @ 200 mls/hr Q24H IV 11/20/16 15:00 11/25/16 14:57 (D50w (Vial) Inj) 50 ml UNSCH PRN IV 11/20/16 14:45 (Glucagon Inj) 1 mg UNSCH PRN OTHER 11/20/16 14:45 (Nitroglycerin 2% Oint) 0.5 inch Q8HR TOPICAL 11/20/16 22:00 11/26/16 06:44 (Aspirin Chew) 81 mg DAILY CHEW 11/20/16 16:00 11/21/16 08:09 (Urecholine) 25 mg BID PO 11/20/16 21:00 11/26/16 09:18 ([place] 5-325 Mg) 1 tab QID PRN PO 11/20/16 16:00 11/21/16 23:19 (Keppra) 500 mg BID PO 11/20/16 21:00 11/26/16 09:18 (Singulair) 10 mg DAILY PO 11/21/16 09:00 11/26/16 09:18 (Proscar) 5 mg DAILY PO 11/21/16 09:00 11/26/16 09:19 (Melatonin) 10 mg HS PO 11/20/16 21:00 11/25/16 22:08 (Drisdol) 50,000 units Q7D PO 11/20/16 20:00 11/20/16 21:23 (Rocaltrol) 0.5 mcg DAILY PO 11/24/16 09:00 11/26/16 09:16 (Bumex Inj) 2 mg Q8HR IV PUSH 11/24/16 18:00 11/26/16 06:44 (Lopressor) 25 mg Q12HR PO 11/25/16 14:30 11/26/16 09:17 (NovoLIN 70/30 INJ) 8 units DAILY@17 SQ 11/25/16 17:00 11/25/16 17:00 (NovoLIN 70/30 INJ) 10 units DAILY@08 SQ 11/26/16 08:00 (KCl) 20 meq DAILY PO 11/26/16 09:00 (Sarah Carbajal) Physical Exam General Appearance: No Acute Distress (Sarah Carbajal) Eyes Eye Exam: Sclera White (Sarah Carbajal) Neck Neck Exam: Trachea Midline (Sarah Carbajal) Pulmonary Resp Exam: Clear Bilaterally, Breath Sounds Equal, No Distress, Diminished Breath Sounds (Sarah Carbajal) Cardiology CV Exam: Normal Sinus Rhythm, Good Perfusion, Irregular (Sarah Carbajal) Gastrointestinal/Abdomen GI Exam: Soft, Non-Tender (Sarah Carbajal) Musculoskeletal MS Exam: Good Strength (Sarah Carbajal) Integumentary Skin Exam: Clear, Warm (Sarah Carbajal) Extremeties Extremities Exam: Moderate Edema (involving legs and hips and torso--improving) (Sarah Carbajal) Assessment/Plan Problem List: (1) DEJA (acute kidney injury) Plan: Renal functions improving. UOP much improved Will decrease Bumex to q12h. Diamox tonight given continued alkalosis Goal to transition to po diuretics within the next 24-48h Medications should be adjusted for the patient's renal decline. Avoid nephrotoxic medications including NSAIDs and iodinated contrast dyes. Avoid gadolinium when eGFR <30. (2) Kidney transplant status, living related donor Plan: Transplanted in 1998 LRD. Was on immunosuppressives, but has not been on for 10 years Appreciate input from transplant surgeon who suggests not resuming. Noted cardiology has concerns regarding administration of amiodarone in the setting of the kidney transplant. Uncertain of specific concern. If cardiology would like to discuss with me will be happy to review any concerns. (3) Anasarca Plan: Reviewed echo. EF of 40%, mild-mod TR, aortic sclerosis, mild pulmonary hypertension Volume status improving. (4) Postsurgical hypoparathyroidism Plan: Calcium level has improved. Continue calcitriol to improve calcium absorption as well as by mouth calcium carbonate. The goal of therapy with calcitriol would be to maintain the calcium level slightly low or at low normal to try to avoid the development of hypercalciuria which can occur in this setting with calcitriol. There is a risk of nephrocalcinosis with hypercalciuria. Would subsequently do a 24-hour urine for calcium and subsequently every 6 monthly thereafter if stability is achieved. This was discussed with the patient's and patient and I also strongly advised that they find a chef teacher to follow-up with as an outpatient (5) Hypocalcemia Plan: Improving (6) Vitamin D deficiency Plan: Repletion as ordered (7) DM2 (diabetes mellitus, type 2) Plan: Mgmt as per primary (8) Hypertension Plan: As per hx. Hypotensive in house. Medications held. (Sarah Carbajal) Plan The exam, history, and the medical decision-making described in the above note were completed with the assistance of the PA-C. I reviewed and agree with the findings presented. (Lizz Pro MD) Sarah Carbajal Nov 26, 2016 09:38 Lizz Pro MD Nov 27, 2016 12:14
--- NOTE | 2016-11-26 11:38 | HHI.PR ---
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 About one month ago patient developed generalized weakness and lower extremity edema and scrotal edema. He stated that he also had chest pain that started about 3 months ago, He increased his Lasix from 40 mg to 60 mg every oh daily. He stated that this helped his edema a lot. Patient also has scrotal edema and which he saw his urologist Dr. Lee and stated that he had epididymitis and was treated with Levaquin. He was told that he needs a total of about 1 month of treatment. Patient does have a history of multiple UTIs. Testicular ultrasound was also ordered as outpatient. he has history of CVA 2012, DM II Kidney transplant. 11/21: Seen in his bedroom in the presence of his , discussed with nurse Miss Holloway His Creatinine is decreases from 1.95 to 1.45, he is receiving Albumin, Improving calcium levels with replacement but he had extravasation and has erythema on both arms secondary to Calcium, this drips were discontinued by Nephrology specialist and switch to by mouth Calcium 11/22: Seen in the presence of his . discussed with nurse Miss Calvo. 11/23: During the night had US of the right arm found Superficial venous thrombosis, on the Cephalic vein and Basilic vein, not necessary to start anticoagulation for this veins will continue warm compresses and elevation of Right arm, accepted at [facility]. 11/24: His refused Aspirin for the patient, also refused Insulin in the morning accepted to decrease the dose of Insulin NPH and continue Insulin sliding scale. his creatinine is stable, continue aggressive diuresis as per Nephrology specialist, Transplant surgeon recommended not to resume Immunosuppression, has Postsurgical Hypoparathyroidism, to continue Calcium and calcitriol today given Calcium gluconate 1 gram. 11/25: As per hospital cleaning specialist, recommended due to Non Sustained Ventricular Tachycardia, added Lopressor. as per Cardiology looks more Accelerated Idioventricular rhythm recommends to hold Off Amiodarone given renal transplant, corrected Potassium with by mouth Potassium. 11/26: Stable in his bedroom in the presence of his , seen by nephrology specialist continue diuresis, seen by Urology specialist recommended to continue Antibiotics, aggressive rehab, scrotal elevation for scrotal cellulitis and edema. renal function improving decreased Bumex every 12 hours, Diamox at night today given Alkalosis, the Goal is transition to by mouth diuretics within the next 24 to 48 hours, patient clinically improving. no nausea, vomit or diarrhea. Objective Vital Signs Date Time Temp Pulse Resp B/P Pulse Ox O2 Delivery O2 Flow Rate FiO2 11/26/16 11:00 97.9 76 18 106/62 99 11/26/16 11:00 79 11/26/16 10:52 98 Nasal Cannula 3.00 11/26/16 10:00 71 11/26/16 09:00 88 11/26/16 08:00 86 11/26/16 07:00 69 11/26/16 07:00 97.7 83 18 128/63 95 11/26/16 06:00 74 11/26/16 05:00 70 11/26/16 04:00 74 11/26/16 03:00 76 11/26/16 03:00 97.5 81 22 108/56 94 11/26/16 02:00 76 11/26/16 01:00 68 11/26/16 00:00 73 11/25/16 23:00 97.4 78 24 100/53 100 11/25/16 23:00 76 11/25/16 22:00 82 11/25/16 21:05 92 Nasal Cannula 3.00 11/25/16 21:00 76 11/25/16 20:00 87 11/25/16 19:00 98.1 89 22 118/57 97 11/25/16 19:00 78 11/25/16 18:16 72 11/25/16 17:04 81 11/25/16 16:46 82 11/25/16 15:03 98.5 88 19 104/51 98 11/25/16 15:00 78 11/25/16 14:00 91 11/25/16 13:00 82 11/25/16 12:18 75 I/O 11/25/16 11/25/16 11/25/16 11/26/16 11/26/16 11/26/16 07:00 15:00 23:00 07:00 15:00 23:00 Intake Total 120 ml 590 ml 595 ml Output Total 1850 ml 2900 ml 2150 ml Balance -1730 ml -2310 ml -1555 ml Intake Oral 120 ml 480 ml 595 ml IV Total 110 ml Output Urine Total 1850 ml 2900 ml 2150 ml # Bowel Movements 1 Result Diagram: 11/25/16 0425 11/26/16 0640 Imaging Last Impressions Upper Extremity Ultrasound 11/23/16 0000 Signed Impressions: Service Date/Time: Wednesday, November 23, 2016 01:31 - CONCLUSION: Nonocclusive thrombus in the right mid and distal basilic veins. Occlusive thrombus in the right cephalic vein. Fran Jose MD Chest X-Ray 11/20/16 1043 Signed Impressions: Service Date/Time: Sunday, November 20, 2016 11:01 - CONCLUSION: 1. Moderate left pleural effusion and left basilar density likely atelectasis. 2. Cardiomegaly and previous CABG. Fran Jose MD Scrotum Ultrasound 11/20/16 0000 Signed Impressions: Service Date/Time: Sunday, November 20, 2016 16:52 - CONCLUSION: 1. No testicular masses. 2. Marked scrotal skin thickening. Small hydroceles. Mild left varicocele. Kirby Kyle MD Renal Ultrasound 11/20/16 0000 Signed Impressions: Service Date/Time: Sunday, November 20, 2016 16:29 - CONCLUSION: 1. Transplant kidney in the right lower quadrant. No hydronephrosis. Atrophic [place] right kidney. Left kidney not visualized. Ascites. Kirby Kyle MD Procedures No procedures performed. Other Results Laboratory Tests Test 11/24/16 11/24/16 11/25/16 11/26/16 06:03 14:55 04:25 06:40 Albumin 2.3 GM/DL Urine Color YELLOW Urine Turbidity HAZY Urine pH 6.0 Urine Specific [place] 1.009 Urine Protein NEG mg/dL Urine Glucose (UA) NEG mg/dL Urine Ketones NEG mg/dL Urine Occult Blood LARGE Urine Nitrite NEG Urine Bilirubin NEG Urine Urobilinogen LESS THAN 2.0 MG/DL Urine Leukocyte Esterase LARGE Urine RBC 101 /hpf Urine WBC 135 /hpf Urine WBC Clumps MANY Urine Bacteria OCC /hpf Microscopic Urinalysis Comment CATH-CULTURE IND White Blood Count 8.0 TH/MM3 Red Blood Count 5.49 MIL/MM3 Hemoglobin 14.2 GM/DL Hematocrit 45.1 % Mean Corpuscular Volume 82.2 FL Mean Corpuscular Hemoglobin 25.9 PG Mean Corpuscular Hemoglobin 31.5 % Concent Red Cell Distribution Width 18.4 % Platelet Count 84 TH/MM3 Mean Platelet Volume 8.5 FL Sodium Level 139 MEQ/L Potassium Level 3.2 MEQ/L Chloride Level 91 MEQ/L Carbon Dioxide Level 44.9 MEQ/L Anion Gap 3 MEQ/L Blood Urea Nitrogen 28 MG/DL Creatinine 0.84 MG/DL Estimat Glomerular Filtration 89 ML/MIN Rate Random Glucose 78 MG/DL Calcium Level 6.7 MG/DL Protein Corrected Calcium 7.9 MG/DL Phosphorus Level 3.5 MG/DL Magnesium Level 1.6 MG/DL Total Protein 4.8 GM/DL Objective Remarks GENERAL: This is a frail male in NAD SKIN: No rashes. Cool and dry. B/L ext erythematous changes due to stasis. No warmth noted. HEAD: Atraumatic. Normocephalic. No temporal or scalp tenderness. EYES: Pupils equal round and reactive. Extraocular motions intact. No scleral icterus. No injection or drainage. ENT: Nose without bleeding, purulent drainage or septal hematoma. Throat without erythema, tonsillar hypertrophy or exudate. Uvula midline. Airway patent. NECK: Trachea midline. No JVD or lymphadenopathy. Supple, nontender, no meningeal signs. CARDIOVASCULAR: Irregular rate and irregular rhythm without murmurs, gallops, or rubs. White scar tissue mid chest. RESPIRATORY: Clear to auscultation. Breath sounds equal bilaterally. No wheezes , rales, or rhonchi. GASTROINTESTINAL: Abdomen soft, non-tender, nondistended. No hepato-splenomegaly , or palpable masses. No guarding. MUSCULOSKELETAL: Extremities without clubbing, cyanosis. No Edema. NEUROLOGICAL: Awake and alert. Alert and Oriented, no focal deficits. Pelvic: Scrotal area with erythema and swelling. Medications and IVs Current Medications Medications (Trade) Dose Ordered Sig/Tj Route Start Time Stop Time Status Last Admin (NS Flush) 2 ml UNSCH PRN IVF 11/20/16 10:45 (NS Flush) 2 ml UNSCH PRN IV FLUSH 11/20/16 14:00 11/25/16 14:56 (NS Flush) 2 ml BID IV FLUSH 11/20/16 21:00 11/26/16 09:18 (Tylenol) 650 mg Q4H PRN PO 11/20/16 14:00 11/24/16 15:27 (Narcan Inj) 0.4 mg UNSCH PRN IV 11/20/16 14:00 (Milk Of Magnesia Liq) 30 ml Q12H PRN PO 11/20/16 14:00 Calcium Carbonate 1000 mg 1,000 mg BID PO 11/20/16 14:15 11/26/16 09:17 (Rocephin Inj/NS Inj) 100 ml @ 200 mls/hr Q24H IV 11/20/16 15:00 11/25/16 14:57 (D50w (Vial) Inj) 50 ml UNSCH PRN IV 11/20/16 14:45 (Glucagon Inj) 1 mg UNSCH PRN OTHER 11/20/16 14:45 (Nitroglycerin 2% Oint) 0.5 inch Q8HR TOPICAL 11/20/16 22:00 11/26/16 06:44 (Aspirin Chew) 81 mg DAILY CHEW 11/20/16 16:00 11/21/16 08:09 (Urecholine) 25 mg BID PO 11/20/16 21:00 11/26/16 09:18 ([place] 5-325 Mg) 1 tab QID PRN PO 11/20/16 16:00 11/21/16 23:19 (Keppra) 500 mg BID PO 11/20/16 21:00 11/26/16 09:18 (Singulair) 10 mg DAILY PO 11/21/16 09:00 11/26/16 09:18 (Proscar) 5 mg DAILY PO 11/21/16 09:00 11/26/16 09:19 (Melatonin) 10 mg HS PO 11/20/16 21:00 11/25/16 22:08 (Drisdol) 50,000 units Q7D PO 11/20/16 20:00 11/20/16 21:23 (Rocaltrol) 0.5 mcg DAILY PO 11/24/16 09:00 11/26/16 09:16 (Lopressor) 25 mg Q12HR PO 11/25/16 14:30 11/26/16 09:17 (NovoLIN 70/30 INJ) 8 units DAILY@17 SQ 11/25/16 17:00 11/25/16 17:00 (NovoLIN 70/30 INJ) 10 units DAILY@08 SQ 11/26/16 08:00 (KCl) 20 meq DAILY PO 11/26/16 09:00 (Bumex Inj) 2 mg Q12H IV PUSH 11/26/16 18:00 (Diamox Inj) 500 mg ONCE ONCE IV PUSH 11/26/16 18:00 11/26/16 18:01 A/P Assessment and Plan 76-year-old male past medical history of coronary artery disease status post CABG, penile transplant, chronic kidney disease status post renal transplant, chronic hypocalcemia, type 2 diabetes insulin-dependent, chronic atrial fibrillation, BPH, and history of multiple intracranial bleed who presented with generalized weakness and scrotal/lower extremity edema 1. Generalized weakness PT when he is more stable at this time weak not able to get Physical Therapy. most likely worsened due to Severe Hypocalcemia, Volume overload, recommended to continue Diuresis but his Bumex was decreased to every 12 hours, Diamox at night due to Alkalosis, Goal is transition to by mouth Diuretics the next 24 to 48 hours, clinically improving. 2. Severe Hypocalcemia replaced and following, Vitamin d deficiency replacement. 3. Postsurgical Hypoparathyroidism, to continue Calcium replacement. 4. Hypertension controlled. 5. Non sustained Ventricular tachycardia/Atrial Fibrillation/for Cardiology more for Accelerated Idioventricular rhythm. on BB held Amiodarone. 5. Atypical Chest pain in a patient with CAD status post CABG, mildly elevated Troponin level as per hospital cleaning specialist non candidate for intervention, he has history of Multiple intracranial bleed anticoagulation contraindicated 7. Scrotal Cellulitis seen by Urology specialist recommended to continue Antibiotics, aggressive rehab, scrotal elevation for scrotal cellulitis and edema 8. Acute Renal Injury on chronic kidney disease status post Renal transplant, Improved. to continue diuresis better response at this time to diuretics, as per Transplant surgeon not to re start Immunosuppression. 8. Volume Overload/Anasarca/left pleural effusion on diuresis and Albumin and Diuretics. 9. History of intracranial bleed Keppra for prophylaxis. 10. DM II continue Insulin and following. Mild uncontrol adjusted Insulins. refusing Insulin and Aspirin 11. Chronic back pain DVT prophylaxis -SCDs Code Status full Code. Discussed Condition With Patient, and nurse Miss Snow, all questions answered to the best of my abilities. asked to removed Aspirin. [facility]charge [facility]. Mateo Ridley MD Nov 26, 2016 11:38
--- NOTE | 2016-11-26 11:44 | HHI.PR ---
Subjective Patient symptoms today Pt seen and examined. Mcintyre placed over weekend. Some hematuria; mcintyre was caught while ambulating per . Objective Vital Signs Vital Signs Date Time Temp Pulse Resp B/P Pulse Ox O2 Delivery O2 Flow Rate FiO2 11/26/16 11:00 97.9 76 18 106/62 99 11/26/16 11:00 79 11/26/16 10:52 98 Nasal Cannula 3.00 11/26/16 10:00 71 11/26/16 09:00 88 11/26/16 08:00 86 11/26/16 07:00 69 11/26/16 07:00 97.7 83 18 128/63 95 11/26/16 06:00 74 11/26/16 05:00 70 11/26/16 04:00 74 11/26/16 03:00 76 11/26/16 03:00 97.5 81 22 108/56 94 11/26/16 02:00 76 11/26/16 01:00 68 11/26/16 00:00 73 11/25/16 23:00 97.4 78 24 100/53 100 11/25/16 23:00 76 11/25/16 22:00 82 11/25/16 21:05 92 Nasal Cannula 3.00 11/25/16 21:00 76 11/25/16 20:00 87 11/25/16 19:00 98.1 89 22 118/57 97 11/25/16 19:00 78 11/25/16 18:16 72 11/25/16 17:04 81 11/25/16 16:46 82 11/25/16 15:03 98.5 88 19 104/51 98 11/25/16 15:00 78 11/25/16 14:00 91 11/25/16 13:00 82 11/25/16 12:18 75 Result Diagram: 11/25/16 0425 11/26/16 0640 Objective Remarks Abd:soft,nt,nd Scrotum: scrotal erythema and swelling improving Abd:soft,nt,nd Scrotal edema noted Mcintyre: clear with small clot in tube Medications and IVs Current Medications Medications (Trade) Dose Ordered Sig/Tj Route Start Time Stop Time Status Last Admin (NS Flush) 2 ml UNSCH PRN IVF 11/20/16 10:45 (NS Flush) 2 ml UNSCH PRN IV FLUSH 11/20/16 14:00 11/25/16 14:56 (NS Flush) 2 ml BID IV FLUSH 11/20/16 21:00 11/26/16 09:18 (Tylenol) 650 mg Q4H PRN PO 11/20/16 14:00 11/24/16 15:27 (Narcan Inj) 0.4 mg UNSCH PRN IV 11/20/16 14:00 (Milk Of Magnesia Liq) 30 ml Q12H PRN PO 11/20/16 14:00 Calcium Carbonate 1000 mg 1,000 mg BID PO 11/20/16 14:15 11/26/16 09:17 (Rocephin Inj/NS Inj) 100 ml @ 200 mls/hr Q24H IV 11/20/16 15:00 11/25/16 14:57 (D50w (Vial) Inj) 50 ml UNSCH PRN IV 11/20/16 14:45 (Glucagon Inj) 1 mg UNSCH PRN OTHER 11/20/16 14:45 (Nitroglycerin 2% Oint) 0.5 inch Q8HR TOPICAL 11/20/16 22:00 11/26/16 06:44 (Aspirin Chew) 81 mg DAILY CHEW 11/20/16 16:00 11/21/16 08:09 (Urecholine) 25 mg BID PO 11/20/16 21:00 11/26/16 09:18 ([place] 5-325 Mg) 1 tab QID PRN PO 11/20/16 16:00 11/21/16 23:19 (Keppra) 500 mg BID PO 11/20/16 21:00 11/26/16 09:18 (Singulair) 10 mg DAILY PO 11/21/16 09:00 11/26/16 09:18 (Proscar) 5 mg DAILY PO 11/21/16 09:00 11/26/16 09:19 (Melatonin) 10 mg HS PO 11/20/16 21:00 11/25/16 22:08 (Drisdol) 50,000 units Q7D PO 11/20/16 20:00 11/20/16 21:23 (Rocaltrol) 0.5 mcg DAILY PO 11/24/16 09:00 6/26/17 09:16 (Lopressor) 25 mg Q12HR PO 11/25/16 14:30 11/26/16 09:17 (NovoLIN 70/30 INJ) 8 units DAILY@17 SQ 11/25/16 17:00 11/25/16 17:00 (NovoLIN 70/30 INJ) 10 units DAILY@08 SQ 11/26/16 08:00 (KCl) 20 meq DAILY PO 11/26/16 09:00 (Bumex Inj) 2 mg Q12H IV PUSH 11/26/16 18:00 Acetazolamide Sodium 500 mg 500 mg ONCE ONCE IV PUSH 11/26/16 18:00 11/26/16 18:01 (Magnesium Sulfate 1 Gm Premix) 100 ml @ 100 mls/hr Q1H IV 11/26/16 11:45 11/26/16 13:44 UNV (KCl) 40 meq TID PO 11/26/16 13:00 UNV Assessment and Plan Assessment and Plan 76 yo male with scrotal cellulitis and edema Bladder scan to make sure pt is emptying bladder Scrotal elevation Aggressive rehab Continue Abx 11/26 76 yo male with scrotal cellulitis and edema Scrotal elevation Aggressive rehab Continue Abx Mariano Lee DO Nov 26, 2016 11:44
--- NOTE | 2016-11-26 11:47 | PD.CARD.PN ---
Subjective Subjective Remarks No angina Objective Medications Current Medications Medications (Trade) Dose Ordered Sig/Tj Route Start Time Stop Time Status Last Admin (NS Flush) 2 ml UNSCH PRN IVF 11/20/16 10:45 (NS Flush) 2 ml UNSCH PRN IV FLUSH 11/20/16 14:00 11/25/16 14:56 (NS Flush) 2 ml BID IV FLUSH 11/20/16 21:00 11/26/16 09:18 (Tylenol) 650 mg Q4H PRN PO 11/20/16 14:00 11/24/16 15:27 (Narcan Inj) 0.4 mg UNSCH PRN IV 11/20/16 14:00 (Milk Of Magnesia Liq) 30 ml Q12H PRN PO 11/20/16 14:00 Calcium Carbonate 1000 mg 1,000 mg BID PO 11/20/16 14:15 11/26/16 09:17 (Rocephin Inj/NS Inj) 100 ml @ 200 mls/hr Q24H IV 11/20/16 15:00 11/25/16 14:57 (D50w (Vial) Inj) 50 ml UNSCH PRN IV 11/20/16 14:45 (Glucagon Inj) 1 mg UNSCH PRN OTHER 11/20/16 14:45 (Nitroglycerin 2% Oint) 0.5 inch Q8HR TOPICAL 11/20/16 22:00 11/26/16 06:44 (Aspirin Chew) 81 mg DAILY CHEW 11/20/16 16:00 11/21/16 08:09 (Urecholine) 25 mg BID PO 11/20/16 21:00 11/26/16 09:18 ([place] 5-325 Mg) 1 tab QID PRN PO 11/20/16 16:00 11/21/16 23:19 (Keppra) 500 mg BID PO 11/20/16 21:00 11/26/16 09:18 (Singulair) 10 mg DAILY PO 11/21/16 09:00 11/26/16 09:18 (Proscar) 5 mg DAILY PO 11/21/16 09:00 11/26/16 09:19 (Melatonin) 10 mg HS PO 11/20/16 21:00 11/25/16 22:08 (Drisdol) 50,000 units Q7D PO 11/20/16 20:00 11/20/16 21:23 (Rocaltrol) 0.5 mcg DAILY PO 11/24/16 09:00 11/26/16 09:16 (Lopressor) 25 mg Q12HR PO 11/25/16 14:30 11/26/16 09:17 (NovoLIN 70/30 INJ) 8 units DAILY@17 SQ 11/25/16 17:00 11/25/16 17:00 (NovoLIN 70/30 INJ) 10 units DAILY@08 SQ 11/26/16 08:00 (KCl) 20 meq DAILY PO 11/26/16 09:00 (Bumex Inj) 2 mg Q12H IV PUSH 11/26/16 18:00 Acetazolamide Sodium 500 mg 500 mg ONCE ONCE IV PUSH 11/26/16 18:00 11/26/16 18:01 (Magnesium Sulfate 1 Gm Premix) 100 ml @ 100 mls/hr Q1H IV 11/26/16 11:45 11/26/16 13:44 UNV (KCl) 40 meq TID PO 11/26/16 13:00 UNV Vital Signs / I&O Vital Signs Date Time Temp Pulse Resp B/P Pulse Ox O2 Delivery O2 Flow Rate FiO2 11/26/16 11:00 97.9 76 18 106/62 99 11/26/16 11:00 79 11/26/16 10:52 98 Nasal Cannula 3.00 11/26/16 10:00 71 11/26/16 09:00 88 11/26/16 08:00 86 11/26/16 07:00 69 11/26/16 07:00 97.7 83 18 128/63 95 11/26/16 06:00 74 11/26/16 05:00 70 11/26/16 04:00 74 11/26/16 03:00 76 11/26/16 03:00 97.5 81 22 108/56 94 11/26/16 02:00 76 11/26/16 01:00 68 11/26/16 00:00 73 11/25/16 23:00 97.4 78 24 100/53 100 11/25/16 23:00 76 11/25/16 22:00 82 11/25/16 21:05 92 Nasal Cannula 3.00 11/25/16 21:00 76 11/25/16 20:00 87 11/25/16 19:00 98.1 89 22 118/57 97 11/25/16 19:00 78 11/25/16 18:16 72 11/25/16 17:04 81 11/25/16 16:46 82 11/25/16 15:03 98.5 88 19 104/51 98 11/25/16 15:00 78 11/25/16 14:00 91 11/25/16 13:00 82 11/25/16 12:18 75 I/O 11/25/16 11/25/16 11/25/16 11/26/16 11/26/16 11/26/16 07:00 15:00 23:00 07:00 15:00 23:00 Intake Total 120 ml 590 ml 595 ml Output Total 1850 ml 2900 ml 2150 ml Balance -1730 ml -2310 ml -1555 ml Intake Oral 120 ml 480 ml 595 ml IV Total 110 ml Output Urine Total 1850 ml 2900 ml 2150 ml # Bowel Movements 1 Physical Exam Awake, No acute distress Chest: diminished BS at bases CV S1S2 irr irr, rate about 90 anasraca - leg/scrotal/back swelling Laboratory Laboratory Tests Test 11/25/16 11/26/16 15:40 06:40 Potassium Level 3.3 MEQ/L 3.2 MEQ/L Sodium Level 139 MEQ/L Chloride Level 91 MEQ/L Carbon Dioxide Level 44.9 MEQ/L Anion Gap 3 MEQ/L Blood Urea Nitrogen 28 MG/DL Creatinine 0.84 MG/DL Estimat Glomerular Filtration 89 ML/MIN Rate Random Glucose 78 MG/DL Calcium Level 6.7 MG/DL Protein Corrected Calcium 7.9 MG/DL Phosphorus Level 3.5 MG/DL Magnesium Level 1.6 MG/DL Total Protein 4.8 GM/DL Assessment and Plan Problem List: (1) NSVT (nonsustained ventricular tachycardia) (2) Cardiomyopathy (3) Atrial fibrillation, permanent (4) Hypoalbuminemia (5) Left bundle branch block (6) Troponin level elevated (7) Anasarca Assessment and Plan: Diuresing well (8) Thrombophlebitis arm (9) Pleural effusion (10) Chest pain at rest (11) Intracranial hemorrhage (12) Ventricular tachycardia (paroxysmal) Assessment and Plan: cont BB. Replete K+ and Mg+2 (13) Hypokalemia, excessive renal losses Assessment and Plan: replete Assessment and Plan Major issue is getting more fluid off - gross anasarca - nurse is calling Dr. Pro for further diuretic orders (metolazone? increased furosemide) Jone Gray MD Nov 26, 2016 11:47
[2016-11-26] MEDS: MAGNESIUM SULFATE 1 GM PREMIX 100 ML IV SCH ×2 (12:07→13:32)
[2016-11-26] MEDS: cefTRIAXone INJ 1,000 MG in SODIUM CHLORIDE 0.9% INJ 100 ML IV SCH (15:00)
[2016-11-26] MEDS: MELATONIN 5 MG TAB PO SCH (22:34)
[2016-11-27] VITALS (24 sets, daily range): BP systolic 111–132; BP diastolic 56–74; PULSE 56–85; RESP 18–24; TEMP 96.5–98.4; O2SAT 97–100
[2016-11-27] MEDS: NITROGLYCERIN 2% OINT 1 GM PACKET TOPICAL SCH ×3 (05:26→22:01)
[2016-11-27] MEDS: BUMETANIDE INJ 1 MG/4 ML VIAL IV PUSH SCH (05:26)
[2016-11-27] MEDS: INSULIN NovoLIN REGULAR SUPPLEMENTAL SCALE SQ SCH ×4 (07:00→21:00)
[2016-11-27 07:56] LABS: BICARBONATE 44.8 MEQ/L (21.0-32.0); MAGNESIUM 1.9 MG/DL (1.5-2.5); POTASSIUM 3.6 MEQ/L (3.5-5.1)
[2016-11-27] MEDS: ASPIRIN 81 MG CHEW TAB CHEW SCH (09:00)
[2016-11-27] MEDS: MONTELUKAST SODIUM 10 MG TAB PO SCH (09:31)
[2016-11-27] MEDS: POTASSIUM CHLORIDE 20 MEQ CONTROLLED RELEASE TAB PO SCH ×4 (09:31→17:50)
[2016-11-27] MEDS: BETHANECHOL CHL 25 MG TAB PO SCH ×2 (09:31→22:00)
[2016-11-27] MEDS: CALCIUM CARBONATE 1.25 GM (CA 500 MG) TAB PO SCH ×2 (09:32→22:02)
[2016-11-27] MEDS: levETIRAcetam 500 MG TAB PO SCH ×2 (09:32→22:01)
[2016-11-27] MEDS: FINASTERIDE 5 MG TAB PO SCH (09:32)
[2016-11-27] MEDS: METOPROLOL TARTRATE 25 MG TAB PO SCH ×2 (09:33→22:01)
[2016-11-27] MEDS: CALCITRIOL 0.25 MCG CAP PO SCH (09:33)
[2016-11-27] MEDS: SODIUM CHLORIDE 0.9% FLUSH 10 ML FLUSH IV FLUSH SCH ×2 (09:33→22:01)
[2016-11-27] MEDS: INSULIN HUMAN NPH/R 70/30 1,000 UNITS/10 ML VIAL SQ SCH ×2 (09:51→17:00)
--- NOTE | 2016-11-27 10:08 | HHI.PR ---
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 About one month ago patient developed generalized weakness and lower extremity edema and scrotal edema. He stated that he also had chest pain that started about 3 months ago, He increased his Lasix from 40 mg to 60 mg every oh daily. He stated that this helped his edema a lot. Patient also has scrotal edema and which he saw his urologist Dr. Lee and stated that he had epididymitis and was treated with Levaquin. He was told that he needs a total of about 1 month of treatment. Patient does have a history of multiple UTIs. Testicular ultrasound was also ordered as outpatient. he has history of CVA 2012, DM II Kidney transplant. 11/21: Seen in his bedroom in the presence of his , discussed with nurse Miss Holloway His Creatinine is decreases from 1.95 to 1.45, he is receiving Albumin, Improving calcium levels with replacement but he had extravasation and has erythema on both arms secondary to Calcium, this drips were discontinued by Nephrology specialist and switch to by mouth Calcium 11/22: Seen in the presence of his . discussed with nurse Miss Calvo. 11/23: During the night had US of the right arm found Superficial venous thrombosis, on the Cephalic vein and Basilic vein, not necessary to start anticoagulation for this veins will continue warm compresses and elevation of Right arm, accepted at [place] for Rehab. 11/24: His refused Aspirin for the patient, also refused Insulin in the morning accepted to decrease the dose of Insulin NPH and continue Insulin sliding scale. his creatinine is stable, continue aggressive diuresis as per Nephrology specialist, Transplant surgeon recommended not to resume Immunosuppression, has Postsurgical Hypoparathyroidism, to continue Calcium and calcitriol today given Calcium gluconate 1 gram. 11/25: As per neuro psych sales specialist, recommended due to Non Sustained Ventricular Tachycardia, added Lopressor. as per Cardiology looks more Accelerated Idioventricular rhythm recommends to hold Off Amiodarone given renal transplant, corrected Potassium with by mouth Potassium. 11/26: Stable in his bedroom in the presence of his , seen by nephrology specialist continue diuresis, seen by Urology specialist recommended to continue Antibiotics, aggressive rehab, scrotal elevation for scrotal cellulitis and edema. renal function improving decreased Bumex every 12 hours, Diamox at night today given Alkalosis, the Goal is transition to by mouth diuretics within the next 24 to 48 hours, patient clinically improving. 11/27: Seen in his bedroom in the presence of his , no nausea, vomit or diarrhea, Improving as per Nephrology specialist. Objective Vital Signs Date Time Temp Pulse Resp B/P Pulse Ox O2 Delivery O2 Flow Rate FiO2 11/27/16 09:00 80 11/27/16 08:00 77 11/27/16 07:00 97.6 66 18 132/73 97 11/27/16 07:00 73 11/27/16 06:00 78 11/27/16 05:00 72 11/27/16 04:00 68 11/27/16 03:00 70 11/27/16 03:00 97.5 79 22 111/72 98 11/27/16 02:00 78 11/27/16 01:00 70 11/27/16 00:00 77 11/26/16 23:00 97.6 90 18 110/63 95 11/26/16 23:00 84 11/26/16 22:00 82 11/26/16 21:00 84 11/26/16 20:20 97 Nasal Cannula 3.00 11/26/16 20:00 79 11/26/16 19:00 97.9 81 26 138/70 96 11/26/16 18:00 82 11/26/16 17:00 82 11/26/16 16:00 68 11/26/16 15:00 61 11/26/16 15:00 98.6 71 16 120/62 96 11/26/16 14:00 84 11/26/16 13:00 75 11/26/16 12:00 70 11/26/16 11:00 97.9 76 18 106/62 99 11/26/16 11:00 79 11/26/16 10:52 98 Nasal Cannula 3.00 I/O 11/26/16 11/26/16 11/26/16 11/27/16 11/27/16 11/27/16 07:00 15:00 23:00 07:00 15:00 23:00 Intake Total 595 ml 1168 ml 360 ml Output Total 2150 ml 2000 ml 2000 ml Balance -1555 ml -832 ml -1640 ml Intake Oral 595 ml 840 ml 360 ml IV Total 328 ml Output Urine Total 2150 ml 2000 ml 2000 ml # Bowel Movements 1 Result Diagram: 11/25/16 0425 11/27/16 0705 Imaging Last Impressions Upper Extremity Ultrasound 11/23/16 0000 Signed Impressions: Service Date/Time: Wednesday, November 23, 2016 01:31 - CONCLUSION: Nonocclusive thrombus in the right mid and distal basilic veins. Occlusive thrombus in the right cephalic vein. Fran Jose MD Chest X-Ray 11/20/16 1043 Signed Impressions: Service Date/Time: Sunday, November 20, 2016 11:01 - CONCLUSION: 1. Moderate left pleural effusion and left basilar density likely atelectasis. 2. Cardiomegaly and previous CABG. Fran Jose MD Scrotum Ultrasound 11/20/16 0000 Signed Impressions: Service Date/Time: Sunday, November 20, 2016 16:52 - CONCLUSION: 1. No testicular masses. 2. Marked scrotal skin thickening. Small hydroceles. Mild left varicocele. Kirby Kyle MD Renal Ultrasound 11/20/16 0000 Signed Impressions: Service Date/Time: Sunday, November 20, 2016 16:29 - CONCLUSION: 1. Transplant kidney in the right lower quadrant. No hydronephrosis. Atrophic [place] right kidney. Left kidney not visualized. Ascites. Kirby Kyle MD Procedures No procedures performed. Other Results Laboratory Tests Test 11/24/16 11/25/16 11/26/16 11/27/16 14:55 04:25 06:40 07:05 Urine Color YELLOW Urine Turbidity HAZY Urine pH 6.0 Urine Specific [place] 1.009 Urine Protein NEG mg/dL Urine Glucose (UA) NEG mg/dL Urine Ketones NEG mg/dL Urine Occult Blood LARGE Urine Nitrite NEG Urine Bilirubin NEG Urine Urobilinogen LESS THAN 2.0 MG/DL Urine Leukocyte Esterase LARGE Urine RBC 101 /hpf Urine WBC 135 /hpf Urine WBC Clumps MANY Urine Bacteria OCC /hpf Microscopic Urinalysis Comment CATH-CULTURE IND White Blood Count 8.0 TH/MM3 Red Blood Count 5.49 MIL/MM3 Hemoglobin 14.2 GM/DL Hematocrit 45.1 % Mean Corpuscular Volume 82.2 FL Mean Corpuscular Hemoglobin 25.9 PG Mean Corpuscular Hemoglobin 31.5 % Concent Red Cell Distribution Width 18.4 % Platelet Count 84 TH/MM3 Mean Platelet Volume 8.5 FL Protein Corrected Calcium 7.9 MG/DL Total Protein 4.8 GM/DL Sodium Level 137 MEQ/L Potassium Level 3.6 MEQ/L Chloride Level 90 MEQ/L Carbon Dioxide Level 44.8 MEQ/L Anion Gap 2 MEQ/L Blood Urea Nitrogen 26 MG/DL Creatinine 0.96 MG/DL Estimat Glomerular Filtration 76 ML/MIN Rate Random Glucose 182 MG/DL Calcium Level 7.2 MG/DL Phosphorus Level 2.9 MG/DL Magnesium Level 1.9 MG/DL Albumin 2.3 GM/DL Objective Remarks GENERAL: This is a frail male in NAD SKIN: No rashes. Cool and dry. B/L ext erythematous changes due to stasis. No warmth noted. HEAD: Atraumatic. Normocephalic. No temporal or scalp tenderness. EYES: Pupils equal round and reactive. Extraocular motions intact. No scleral icterus. No injection or drainage. ENT: Nose without bleeding, purulent drainage or septal hematoma. Throat without erythema, tonsillar hypertrophy or exudate. Uvula midline. Airway patent. NECK: Trachea midline. No JVD or lymphadenopathy. Supple, nontender, no meningeal signs. CARDIOVASCULAR: Irregular rate and irregular rhythm without murmurs, gallops, or rubs. White scar tissue mid chest. RESPIRATORY: Clear to auscultation. Breath sounds equal bilaterally. No wheezes , rales, or rhonchi. GASTROINTESTINAL: Abdomen soft, non-tender, nondistended. No hepato-splenomegaly , or palpable masses. No guarding. MUSCULOSKELETAL: Extremities without clubbing, cyanosis. No Edema. NEUROLOGICAL: Awake and alert. Alert and Oriented, no focal deficits. Pelvic: Scrotal area with erythema and swelling. Medications and IVs Current Medications Medications (Trade) Dose Ordered Sig/Tj Route Start Time Stop Time Status Last Admin (NS Flush) 2 ml UNSCH PRN IVF 11/20/16 10:45 (NS Flush) 2 ml UNSCH PRN IV FLUSH 11/20/16 14:00 11/25/16 14:56 (NS Flush) 2 ml BID IV FLUSH 11/20/16 21:00 11/27/16 09:33 (Tylenol) 650 mg Q4H PRN PO 11/20/16 14:00 11/24/16 15:27 (Narcan Inj) 0.4 mg UNSCH PRN IV 11/20/16 14:00 (Milk Of Magnesia Liq) 30 ml Q12H PRN PO 11/20/16 14:00 Calcium Carbonate 1000 mg 1,000 mg BID PO 11/20/16 14:15 11/27/16 09:32 (Rocephin Inj/NS Inj) 100 ml @ 200 mls/hr Q24H IV 11/20/16 15:00 11/26/16 15:00 (D50w (Vial) Inj) 50 ml UNSCH PRN IV 11/20/16 14:45 (Glucagon Inj) 1 mg UNSCH PRN OTHER 11/20/16 14:45 (Nitroglycerin 2% Oint) 0.5 inch Q8HR TOPICAL 11/20/16 22:00 11/27/16 05:26 (Aspirin Chew) 81 mg DAILY CHEW 11/20/16 16:00 11/21/16 08:09 (Urecholine) 25 mg BID PO 11/20/16 21:00 11/27/16 09:31 ([place] 5-325 Mg) 1 tab QID PRN PO 11/20/16 16:00 11/21/16 23:19 (Keppra) 500 mg BID PO 11/20/16 21:00 11/27/16 09:32 (Singulair) 10 mg DAILY PO 11/21/16 09:00 11/27/16 09:31 (Proscar) 5 mg DAILY PO 11/21/16 09:00 11/27/16 09:32 (Melatonin) 10 mg HS PO 11/20/16 21:00 11/26/16 22:34 (Drisdol) 50,000 units Q7D PO 11/20/16 20:00 11/20/16 21:23 (Rocaltrol) 0.5 mcg DAILY PO 11/24/16 09:00 11/27/16 09:33 (Lopressor) 25 mg Q12HR PO 11/25/16 14:30 11/27/16 09:33 (NovoLIN 70/30 INJ) 8 units DAILY@17 SQ 11/25/16 17:00 11/26/16 16:54 (NovoLIN 70/30 INJ) 10 units DAILY@08 SQ 11/26/16 08:00 11/27/16 09:51 (KCl) 20 meq DAILY PO 11/26/16 09:00 11/27/16 09:31 (Bumex Inj) 2 mg Q12H IV PUSH 11/26/16 18:00 11/27/16 05:26 (KCl) 40 meq TID PO 11/26/16 13:00 11/27/16 09:32 A/P Assessment and Plan 76-year-old male past medical history of coronary artery disease status post CABG, penile transplant, chronic kidney disease status post renal transplant, chronic hypocalcemia, type 2 diabetes insulin-dependent, chronic atrial fibrillation, BPH, and history of multiple intracranial bleed who presented with generalized weakness and scrotal/lower extremity edema 1. Generalized weakness PT when he is more stable at this time weak not able to get Physical Therapy. most likely worsened due to Severe Hypocalcemia, Volume overload, recommended to continue Diuresis but his Bumex was decreased to every 12 hours, Diamox at night due to Alkalosis, Goal is transition to by mouth Diuretics the next 24 to 48 hours, clinically improving. not yet cleared for discharge. 2. Severe Hypocalcemia replaced and following, Vitamin d deficiency replacement. 3. Postsurgical Hypoparathyroidism, to continue Calcium replacement. 4. Hypertension controlled. 5. Non sustained Ventricular tachycardia/Atrial Fibrillation/for Cardiology more for Accelerated Idioventricular rhythm. on BB held Amiodarone. 5. Atypical Chest pain in a patient with CAD status post CABG, mildly elevated Troponin level as per neuro psych sales specialist non candidate for intervention, he has history of Multiple intracranial bleed anticoagulation contraindicated 7. Scrotal Cellulitis seen by Urology specialist recommended to continue Antibiotics, aggressive rehab, scrotal elevation for scrotal cellulitis and edema 8. Acute Renal Injury on chronic kidney disease status post Renal transplant, Improved. to continue diuresis better response at this time to diuretics, as per Transplant surgeon not to re start Immunosuppression. 8. Volume Overload/Anasarca/left pleural effusion on diuresis and Albumin and Diuretics. 9. History of intracranial bleed Keppra for prophylaxis. 10. DM II continue Insulin and following. Mild uncontrol adjusted Insulins. refusing Insulin and Aspirin 11. Chronic back pain refusing Insulin and Aspirin also asked me to remove this medicine from the Medication for this patient she is afraid of the patient's possible bleeding episode. DVT prophylaxis -SCDs Code Status full Code. Discussed Condition With Patient, and nurse Miss Snow, all questions answered to the best of my abilities. asked to removed Aspirin. Discharge Planning Discharge to [facility] at discharge. Mateo Ridley MD Nov 27, 2016 10:08
[2016-11-27] MEDS ORDERED: MAGNESIUM SULFATE 1 GM PREMIX 100 ML IV SCH (10:15)
--- NOTE | 2016-11-27 12:15 | HHI.NPPN ---
Subjective History of Present Illness The patient is a 76 yo [place] male who was brought to this facility for evaluation of extensive fluid retention. and family are the primary historians as he has some baseline dementia s/p CVA. Has been following his PCP, Dr. Beasley, for fluid retention. Was admitted in August for PNA and reports that he has had fluid retention since then. Was started on Lasix 40mg BID and was increased about 3 weeks ago to 60mg BID with only minimal response. He is a LRD kidney transplant patient in 1998 from his son and has not been on any immunosuppressives for a number of years according to his . His initial cause of renal failure is diabetes and was a HD via permacath for a few months before his transplant. According to family, his renal functions have been stable for his entire post-transplant life. Other PMHx of CAD s/p CABG, no known hx of CHF, DM, HTN, BPH without obstruction. No NSAID use. Admitting SCr of 1.94. August 2016 was 1.34 Prior levels have fluctuated between 0.8-1.5 ( Interval History by bedside. Patient had no verbal complaints. Review of Systems Cardiovascular Cardiac: Edema Objective Data Data 11/26/16 11/27/16 19:00 07:00 Intake Total 1168 ml 360 ml Output Total 2000 ml 2000 ml Balance -832 ml -1640 ml Intake Oral 840 ml 360 ml IV Total 328 ml Output Urine Total 2000 ml 2000 ml Vital Signs Date Time Temp Pulse Resp B/P Pulse Ox O2 Delivery O2 Flow Rate FiO2 11/27/16 11:00 97.6 75 18 132/68 98 11/27/16 11:00 66 11/27/16 10:00 64 11/27/16 09:00 80 11/27/16 08:00 77 11/27/16 07:00 97.6 66 18 132/73 97 11/27/16 07:00 73 11/27/16 06:00 78 11/27/16 05:00 72 11/27/16 04:00 68 11/27/16 03:00 70 11/27/16 03:00 97.5 79 22 111/72 98 11/27/16 02:00 78 11/27/16 01:00 70 11/27/16 00:00 77 11/26/16 23:00 97.6 90 18 110/63 95 11/26/16 23:00 84 11/26/16 22:00 82 11/26/16 21:00 84 11/26/16 20:20 97 Nasal Cannula 3.00 11/26/16 20:00 79 11/26/16 19:00 97.9 81 26 138/70 96 11/26/16 18:00 82 11/26/16 17:00 82 11/26/16 16:00 68 11/26/16 15:00 61 11/26/16 15:00 98.6 71 16 120/62 96 11/26/16 14:00 84 11/26/16 13:00 75 -: 11/25/16 0425 11/27/16 0705 Physical Exam General Appearance: No Acute Distress Eyes Eye Exam: Sclera White Neck Neck Exam: Trachea Midline Pulmonary Resp Exam: Clear Bilaterally, Breath Sounds Equal, No Distress, Diminished Breath Sounds Cardiology CV Exam: Normal Sinus Rhythm, Good Perfusion, Irregular Gastrointestinal/Abdomen GI Exam: Soft, Non-Tender Musculoskeletal MS Exam: Good Strength Integumentary Skin Exam: Clear, Warm Extremeties Extremities Exam: Moderate Edema (brawny edema involving upper thighs and hips. ) Assessment/Plan Problem List: (1) DEJA (acute kidney injury) Plan: The patient's volume status is much improved. At this point in time brawny edema is present. I will slowed the rate of diuresis at this point in time. His volume status is much improved. By mouth bumetanide as ordered with a dose of Diamox for contraction alkalosis. All of the above reviewed with the . Discharge planning at this point in time okay from a renal point of view. Medications should be adjusted for the patient's renal decline. Avoid nephrotoxic medications including NSAIDs and iodinated contrast dyes. Avoid gadolinium when eGFR <30. (2) Kidney transplant status, living related donor Plan: Transplanted in 1998 LRD. Was on immunosuppressives, but has not been on for 10 years Appreciate input from transplant surgeon who suggests not resuming. Noted cardiology has concerns regarding administration of amiodarone in the setting of the kidney transplant. Uncertain of specific concern. If cardiology would like to discuss with me will be happy to review any concerns. (3) Anasarca Plan: Reviewed echo. EF of 40%, mild-mod TR, aortic sclerosis, mild pulmonary hypertension Volume status improving. (4) Postsurgical hypoparathyroidism Plan: Calcium level has improved. Continue calcitriol to improve calcium absorption as well as by mouth calcium carbonate. The goal of therapy with calcitriol would be to maintain the calcium level slightly low or at low normal to try to avoid the development of hypercalciuria which can occur in this setting with calcitriol. There is a risk of nephrocalcinosis with hypercalciuria. Would subsequently do a 24-hour urine for calcium and subsequently every 6 monthly thereafter if stability is achieved. This was discussed with the patient's and patient and I also strongly advised that they find a home care assistant to follow-up with as an outpatient (5) Hypocalcemia Plan: Improving (6) Vitamin D deficiency Plan: Repletion as ordered (7) DM2 (diabetes mellitus, type 2) Plan: Mgmt as per primary (8) Hypertension Plan: As per hx. Hypotensive in house. Medications held. Plan The exam, history, and the medical decision-making described in the above note were completed with the assistance of the RUSTY. I reviewed and agree with the findings presented. Lizz Pro MD Nov 27, 2016 12:15
[2016-11-27] MEDS ORDERED: MAGNESIUM SULFATE 1 GM PREMIX 100 ML IV ONE (13:00)
[2016-11-27] MEDS: BUMETANIDE 1 MG TAB PO SCH (15:00)
[2016-11-27] MEDS: cefTRIAXone INJ 1,000 MG in SODIUM CHLORIDE 0.9% INJ 100 ML IV SCH (15:00)
[2016-11-27] MEDS: MELATONIN 5 MG TAB PO SCH (22:01)
[2016-11-27] MEDS: ERGOCALCIFEROL (VIT D2) 50,000 UNIT CAP PO SCH (22:05)
[2016-11-28] VITALS (25 sets, daily range): BP systolic 125–142; BP diastolic 65–70; PULSE 64–83; RESP 14–20; TEMP 97.2–98.3; O2SAT 95–99
[2016-11-28] MEDS: NITROGLYCERIN 2% OINT 1 GM PACKET TOPICAL SCH ×3 (06:00→22:46)
[2016-11-28] MEDS: INSULIN NovoLIN REGULAR SUPPLEMENTAL SCALE SQ SCH ×4 (06:00→21:00)
[2016-11-28 06:57] LABS: BLOOD UREA NITROGEN 24 MG/DL (7-18); CHLORIDE 93 MEQ/L (98-107); GLOMERULAR FILTRATION RATE 79 ML/MIN (>89); MAGNESIUM 2.3 MG/DL (1.5-2.5); POTASSIUM 3.9 MEQ/L (3.5-5.1); SODIUM (NA) 140 MEQ/L (136-145)
[2016-11-28 06:58] LABS: CALCIUM-PROTEIN CORRECTED 8.9 MG/DL (8.5-10.1)
[2016-11-28 07:01] LABS: ANION GAP 2 MEQ/L (5-15); BICARBONATE GREATER THAN 45.0 MEQ/L (21.0-32.0)
[2016-11-28] MEDS: INSULIN HUMAN NPH/R 70/30 1,000 UNITS/10 ML VIAL SQ SCH ×2 (08:00→17:00)
[2016-11-28] MEDS: MONTELUKAST SODIUM 10 MG TAB PO SCH (09:00)
[2016-11-28] MEDS: SODIUM CHLORIDE 0.9% FLUSH 10 ML FLUSH IV FLUSH SCH ×2 (09:00→22:47)
[2016-11-28] MEDS: ASPIRIN 81 MG CHEW TAB CHEW SCH (09:00)
[2016-11-28] MEDS: BUMETANIDE 1 MG TAB PO SCH (09:32)
[2016-11-28] MEDS: BETHANECHOL CHL 25 MG TAB PO SCH ×2 (09:33→22:47)
[2016-11-28] MEDS: FINASTERIDE 5 MG TAB PO SCH (09:33)
[2016-11-28] MEDS: METOPROLOL TARTRATE 25 MG TAB PO SCH ×2 (09:33→22:46)
[2016-11-28] MEDS: CALCIUM CARBONATE 1.25 GM (CA 500 MG) TAB PO SCH ×2 (09:33→22:47)
[2016-11-28] MEDS: levETIRAcetam 500 MG TAB PO SCH ×2 (09:34→22:46)
[2016-11-28] MEDS: CALCITRIOL 0.25 MCG CAP PO SCH (09:34)
[2016-11-28] MEDS: POTASSIUM CHLORIDE 20 MEQ CONTROLLED RELEASE TAB PO SCH ×4 (09:47→22:46)
[2016-11-28] MEDS: RESP: ALBUTEROL 2.5 MG/3 ML NEB (PRN) NEB ×2 (10:20→19:30)
--- NOTE | 2016-11-28 11:53 | HHI.PR ---
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 About one month ago patient developed generalized weakness and lower extremity edema and scrotal edema. He stated that he also had chest pain that started about 3 months ago, He increased his Lasix from 40 mg to 60 mg every oh daily. He stated that this helped his edema a lot. Patient also has scrotal edema and which he saw his urologist Dr. Lee and stated that he had epididymitis and was treated with Levaquin. He was told that he needs a total of about 1 month of treatment. Patient does have a history of multiple UTIs. Testicular ultrasound was also ordered as outpatient. he has history of CVA 2012, DM II Kidney transplant. 11/21: Seen in his bedroom in the presence of his , discussed with nurse Miss Holloway His Creatinine is decreases from 1.95 to 1.45, he is receiving Albumin, Improving calcium levels with replacement but he had extravasation and has erythema on both arms secondary to Calcium, this drips were discontinued by Nephrology specialist and switch to by mouth Calcium 11/22: Seen in the presence of his . discussed with nurse Miss Calvo. 11/23: During the night had US of the right arm found Superficial venous thrombosis, on the Cephalic vein and Basilic vein, not necessary to start anticoagulation for this veins will continue warm compresses and elevation of Right arm, accepted at [place] for Re[facility]. 11/24: His refused Aspirin for the patient, also refused Insulin in the morning accepted to decrease the dose of Insulin NPH and continue Insulin sliding scale. his creatinine is stable, continue aggressive diuresis as per Nephrology specialist, Transplant surgeon recommended not to resume Immunosuppression, has Postsurgical Hypoparathyroidism, to continue Calcium and calcitriol today given Calcium gluconate 1 gram. 11/25: As per mailing specialist, recommended due to Non Sustained Ventricular Tachycardia, added Lopressor. as per Cardiology looks more Accelerated Idioventricular rhythm recommends to hold Off Amiodarone given renal transplant, corrected Potassium with by mouth Potassium. 11/26: Stable in his bedroom in the presence of his , seen by nephrology specialist continue diuresis, seen by Urology specialist recommended to continue Antibiotics, aggressive rehab, scrotal elevation for scrotal cellulitis and edema. renal function improving decreased Bumex every 12 hours, Diamox at night today given Alkalosis, the Goal is transition to by mouth diuretics within the next 24 to 48 hours, patient clinically improving. 11/27: Seen in his bedroom in the presence of his , no nausea, vomit or diarrhea, Improving as per Nephrology specialist. 11/28: Patient in his bedroom improving clinically, as per mailing specialist recommended to diurese more, and called Nephrology for this matter, no nausea, vomit or diarrhea, discussed with his in the room also he is been asked for [facility] he is been waited there and may continue specialists evaluation there. Objective Vital Signs Date Time Temp Pulse Resp B/P Pulse Ox O2 Delivery O2 Flow Rate FiO2 11/28/16 09:27 98 Nasal Cannula 2.00 11/28/16 08:30 97.2 76 18 142/65 98 11/28/16 06:00 70 11/28/16 05:00 68 11/28/16 04:00 68 11/28/16 03:00 66 11/28/16 03:00 97.4 77 14 125/70 99 11/28/16 02:00 64 11/28/16 01:00 66 11/28/16 00:00 76 11/27/16 23:00 76 11/27/16 23:00 96.5 61 24 127/67 100 11/27/16 22:00 76 11/27/16 21:00 76 11/27/16 20:00 80 11/27/16 19:00 97.7 81 24 113/56 97 11/27/16 19:00 74 11/27/16 18:00 67 11/27/16 17:00 65 11/27/16 16:00 68 11/27/16 15:00 98.4 85 20 128/74 100 11/27/16 15:00 74 11/27/16 14:00 65 11/27/16 13:00 66 11/27/16 12:00 56 I/O 11/27/16 11/27/16 11/27/16 11/28/16 11/28/16 11/28/16 07:00 15:00 23:00 07:00 15:00 23:00 Intake Total 360 ml 1160 ml 120 ml Output Total 2000 ml 1700 ml 1525 ml Balance -1640 ml -540 ml -1405 ml Intake Oral 360 ml 960 ml 120 ml IV Total 200 ml Output Urine Total 2000 ml 1700 ml 1525 ml Result Diagram: 11/25/16 0425 11/28/16 0554 Imaging Last Impressions Upper Extremity Ultrasound 11/23/16 0000 Signed Impressions: Service Date/Time: Wednesday, November 23, 2016 01:31 - CONCLUSION: Nonocclusive thrombus in the right mid and distal basilic veins. Occlusive thrombus in the right cephalic vein. Fran Jose MD Chest X-Ray 11/20/16 1043 Signed Impressions: Service Date/Time: Sunday, November 20, 2016 11:01 - CONCLUSION: 1. Moderate left pleural effusion and left basilar density likely atelectasis. 2. Cardiomegaly and previous CABG. Fran Jose MD Scrotum Ultrasound 11/20/16 0000 Signed Impressions: Service Date/Time: Sunday, November 20, 2016 16:52 - CONCLUSION: 1. No testicular masses. 2. Marked scrotal skin thickening. Small hydroceles. Mild left varicocele. Kirby Kyle MD Renal Ultrasound 11/20/16 0000 Signed Impressions: Service Date/Time: Sunday, November 20, 2016 16:29 - CONCLUSION: 1. Transplant kidney in the right lower quadrant. No hydronephrosis. Atrophic [place] right kidney. Left kidney not visualized. Ascites. Kirby Kyle MD Procedures No procedures performed. Other Results Laboratory Tests Test 11/24/16 11/25/16 11/27/16 11/28/16 14:55 04:25 07:05 05:54 Urine Color YELLOW Urine Turbidity HAZY Urine pH 6.0 Urine Specific [place] 1.009 Urine Protein NEG mg/dL Urine Glucose (UA) NEG mg/dL Urine Ketones NEG mg/dL Urine Occult Blood LARGE Urine Nitrite NEG Urine Bilirubin NEG Urine Urobilinogen LESS THAN 2.0 MG/DL Urine Leukocyte Esterase LARGE Urine RBC 101 /hpf Urine WBC 135 /hpf Urine WBC Clumps MANY Urine Bacteria OCC /hpf Microscopic Urinalysis Comment CATH-CULTURE IND White Blood Count 8.0 TH/MM3 Red Blood Count 5.49 MIL/MM3 Hemoglobin 14.2 GM/DL Hematocrit 45.1 % Mean Corpuscular Volume 82.2 FL Mean Corpuscular Hemoglobin 25.9 PG Mean Corpuscular Hemoglobin 31.5 % Concent Red Cell Distribution Width 18.4 % Platelet Count 84 TH/MM3 Mean Platelet Volume 8.5 FL Phosphorus Level 2.9 MG/DL Albumin 2.3 GM/DL Sodium Level 140 MEQ/L Potassium Level 3.9 MEQ/L Chloride Level 93 MEQ/L Carbon Dioxide Level GREATER THAN 45.0 MEQ/L Anion Gap 2 MEQ/L Blood Urea Nitrogen 24 MG/DL Creatinine 0.93 MG/DL Estimat Glomerular Filtration 79 ML/MIN Rate Random Glucose 143 MG/DL Calcium Level 7.8 MG/DL Protein Corrected Calcium 8.9 MG/DL Magnesium Level 2.3 MG/DL Total Protein 5.3 GM/DL Objective Remarks GENERAL: This is a frail male in NAD SKIN: No rashes. Cool and dry. B/L ext erythematous changes due to stasis. No warmth noted. HEAD: Atraumatic. Normocephalic. No temporal or scalp tenderness. EYES: Pupils equal round and reactive. Extraocular motions intact. No scleral icterus. No injection or drainage. ENT: Nose without bleeding, purulent drainage or septal hematoma. Throat without erythema, tonsillar hypertrophy or exudate. Uvula midline. Airway patent. NECK: Trachea midline. No JVD or lymphadenopathy. Supple, nontender, no meningeal signs. CARDIOVASCULAR: Irregular rate and irregular rhythm without murmurs, gallops, or rubs. White scar tissue mid chest. RESPIRATORY: Clear to auscultation. Breath sounds equal bilaterally. No wheezes , rales, or rhonchi. GASTROINTESTINAL: Abdomen soft, non-tender, nondistended. No hepato-splenomegaly , or palpable masses. No guarding. MUSCULOSKELETAL: Extremities without clubbing, cyanosis. No Edema. NEUROLOGICAL: Awake and alert. Alert and Oriented, no focal deficits. Pelvic: Scrotal area with erythema and swelling. Medications and IVs Current Medications Medications (Trade) Dose Ordered Sig/Tj Route Start Time Stop Time Status Last Admin (NS Flush) 2 ml UNSCH PRN IVF 11/20/16 10:45 (NS Flush) 2 ml UNSCH PRN IV FLUSH 11/20/16 14:00 11/25/16 14:56 (NS Flush) 2 ml BID IV FLUSH 11/20/16 21:00 11/28/16 09:00 (Tylenol) 650 mg Q4H PRN PO 11/20/16 14:00 11/24/16 15:27 (Narcan Inj) 0.4 mg UNSCH PRN IV 11/20/16 14:00 (Milk Of Magnesia Liq) 30 ml Q12H PRN PO 11/20/16 14:00 Calcium Carbonate 1000 mg 1,000 mg BID PO 11/20/16 14:15 11/28/16 09:33 (Rocephin Inj/NS Inj) 100 ml @ 200 mls/hr Q24H IV 11/20/16 15:00 11/27/16 15:00 (D50w (Vial) Inj) 50 ml UNSCH PRN IV 11/20/16 14:45 (Glucagon Inj) 1 mg UNSCH PRN OTHER 11/20/16 14:45 (Nitroglycerin 2% Oint) 0.5 inch Q8HR TOPICAL 11/20/16 22:00 11/28/16 06:00 (Aspirin Chew) 81 mg DAILY CHEW 11/20/16 16:00 11/21/16 08:09 (Urecholine) 25 mg BID PO 11/20/16 21:00 11/28/16 09:33 ([place] 5-325 Mg) 1 tab QID PRN PO 11/20/16 16:00 11/21/16 23:19 (Keppra) 500 mg BID PO 11/20/16 21:00 11/28/16 09:34 (Singulair) 10 mg DAILY PO 11/21/16 09:00 11/28/16 09:00 (Proscar) 5 mg DAILY PO 11/21/16 09:00 11/28/16 09:33 (Melatonin) 10 mg HS PO 11/20/16 21:00 11/27/16 22:01 (Drisdol) 50,000 units Q7D PO 11/20/16 20:00 11/27/16 22:05 (Rocaltrol) 0.5 mcg DAILY PO 11/24/16 09:00 11/28/16 09:34 (Lopressor) 25 mg Q12HR PO 11/25/16 14:30 11/28/16 09:33 (NovoLIN 70/30 INJ) 8 units DAILY@17 SQ 11/25/16 17:00 11/26/16 16:54 (NovoLIN 70/30 INJ) 10 units DAILY@08 SQ 11/26/16 08:00 11/28/16 08:00 (KCl) 20 meq DAILY PO 11/26/16 09:00 11/28/16 09:47 (KCl) 40 meq TID PO 11/26/16 13:00 11/28/16 09:47 (Bumetanide) 2 mg BID@08,16 PO 11/27/16 16:00 11/28/16 09:32 A/P Assessment and Plan 76-year-old male past medical history of coronary artery disease status post CABG, penile transplant, chronic kidney disease status post renal transplant, chronic hypocalcemia, type 2 diabetes insulin-dependent, chronic atrial fibrillation, BPH, and history of multiple intracranial bleed who presented with generalized weakness and scrotal/lower extremity edema 1. Generalized weakness PT when he is more stable at this time weak not able to get Physical Therapy. most likely worsened due to Severe Hypocalcemia, Volume overload, recommended to continue Diuresis but his Bumex was decreased to every 12 hours, Diamox at night due to Alkalosis, Goal is transition to by mouth Diuretics the next 24 to 48 hours, clinically improving. not yet cleared for discharge. mailing specialist asking for to adjust diuretics. 2. Severe Hypocalcemia replaced, Vitamin d deficiency replacement. 3. Postsurgical Hypoparathyroidism, to continue Calcium replacement. 4. Hypertension controlled. 5. Non sustained Ventricular tachycardia/Atrial Fibrillation/for Cardiology more for Accelerated Idioventricular rhythm. on BB held Amiodarone. 5. Atypical Chest pain in a patient with CAD status post CABG, mildly elevated Troponin level as per mailing specialist non candidate for intervention, he has history of Multiple intracranial bleed anticoagulation contraindicated 7. Scrotal Cellulitis seen by Urology specialist recommended to continue Antibiotics, aggressive rehab, scrotal elevation for scrotal cellulitis and edema, Mackenzie cath placed by Urology specialist. 8. Acute Renal Injury on chronic kidney disease status post Renal transplant, Improved. to continue diuresis better response at this time to diuretics, as per Transplant surgeon not to re start Immunosuppression. 8. Volume Overload/Anasarca/left pleural effusion on diuresis and Albumin and Diuretics. 9. History of intracranial bleed Keppra for prophylaxis. 10. DM II continue Insulin and following. Better control. 11. Chronic back pain DVT prophylaxis -SCDs Code Status full Code. Discussed Condition With Patient, and nurse Miss Seo, all questions answered to the best of my abilities. Discharge Planning Discharge to [facility] [place] [facility] at discharge. Mateo Ridley MD Nov 28, 2016 11:53
--- NOTE | 2016-11-28 11:58 | PD.CARD.PN ---
Subjective Subjective Remarks No angina. No complaints Objective Medications Current Medications Medications (Trade) Dose Ordered Sig/Tj Route Start Time Stop Time Status Last Admin (NS Flush) 2 ml UNSCH PRN IVF 11/20/16 10:45 (NS Flush) 2 ml UNSCH PRN IV FLUSH 11/20/16 14:00 11/25/16 14:56 (NS Flush) 2 ml BID IV FLUSH 11/20/16 21:00 11/28/16 09:00 (Tylenol) 650 mg Q4H PRN PO 11/20/16 14:00 11/24/16 15:27 (Narcan Inj) 0.4 mg UNSCH PRN IV 11/20/16 14:00 (Milk Of Magnesia Liq) 30 ml Q12H PRN PO 11/20/16 14:00 Calcium Carbonate 1000 mg 1,000 mg BID PO 11/20/16 14:15 11/28/16 09:33 (Rocephin Inj/NS Inj) 100 ml @ 200 mls/hr Q24H IV 11/20/16 15:00 11/27/16 15:00 (D50w (Vial) Inj) 50 ml UNSCH PRN IV 11/20/16 14:45 (Glucagon Inj) 1 mg UNSCH PRN OTHER 11/20/16 14:45 (Nitroglycerin 2% Oint) 0.5 inch Q8HR TOPICAL 11/20/16 22:00 11/28/16 06:00 (Aspirin Chew) 81 mg DAILY CHEW 11/20/16 16:00 11/21/16 08:09 (Urecholine) 25 mg BID PO 11/20/16 21:00 11/28/16 09:33 ([place] 5-325 Mg) 1 tab QID PRN PO 11/20/16 16:00 11/21/16 23:19 (Keppra) 500 mg BID PO 11/20/16 21:00 11/28/16 09:34 (Singulair) 10 mg DAILY PO 11/21/16 09:00 11/28/16 09:00 (Proscar) 5 mg DAILY PO 11/21/16 09:00 11/28/16 09:33 (Melatonin) 10 mg HS PO 11/20/16 21:00 11/27/16 22:01 (Drisdol) 50,000 units Q7D PO 11/20/16 20:00 11/27/16 22:05 (Rocaltrol) 0.5 mcg DAILY PO 11/24/16 09:00 11/28/16 09:34 (Lopressor) 25 mg Q12HR PO 11/25/16 14:30 11/28/16 09:33 (NovoLIN 70/30 INJ) 8 units DAILY@17 SQ 11/25/16 17:00 11/26/16 16:54 (NovoLIN 70/30 INJ) 10 units DAILY@08 SQ 11/26/16 08:00 11/28/16 08:00 (KCl) 20 meq DAILY PO 11/26/16 09:00 11/28/16 09:47 (KCl) 40 meq TID PO 11/26/16 13:00 11/28/16 09:47 (Bumetanide) 2 mg BID@08,16 PO 11/27/16 16:00 11/28/16 09:32 Vital Signs / I&O Vital Signs Date Time Temp Pulse Resp B/P Pulse Ox O2 Delivery O2 Flow Rate FiO2 11/28/16 09:27 98 Nasal Cannula 2.00 11/28/16 08:30 97.2 76 18 142/65 98 11/28/16 06:00 70 11/28/16 05:00 68 11/28/16 04:00 68 11/28/16 03:00 66 11/28/16 03:00 97.4 77 14 125/70 99 11/28/16 02:00 64 11/28/16 01:00 66 11/28/16 00:00 76 11/27/16 23:00 76 11/27/16 23:00 96.5 61 24 127/67 100 11/27/16 22:00 76 11/27/16 21:00 76 11/27/16 20:00 80 11/27/16 19:00 97.7 81 24 113/56 97 11/27/16 19:00 74 11/27/16 18:00 67 11/27/16 17:00 65 11/27/16 16:00 68 11/27/16 15:00 98.4 85 20 128/74 100 11/27/16 15:00 74 11/27/16 14:00 65 11/27/16 13:00 66 11/27/16 12:00 56 I/O 11/27/16 11/27/16 11/27/16 11/28/16 11/28/16 11/28/16 07:00 15:00 23:00 07:00 15:00 23:00 Intake Total 360 ml 1160 ml 120 ml Output Total 2000 ml 1700 ml 1525 ml Balance -1640 ml -540 ml -1405 ml Intake Oral 360 ml 960 ml 120 ml IV Total 200 ml Output Urine Total 2000 ml 1700 ml 1525 ml Physical Exam Awake, No acute distress Chest: diminished BS at bases CV S1S2 irr irr, rate about 90 anasraca - still thigh edema Laboratory Laboratory Tests Test 11/28/16 05:54 Sodium Level 140 MEQ/L Potassium Level 3.9 MEQ/L Chloride Level 93 MEQ/L Carbon Dioxide Level GREATER THAN 45.0 MEQ/L Anion Gap 2 MEQ/L Blood Urea Nitrogen 24 MG/DL Creatinine 0.93 MG/DL Estimat Glomerular Filtration 79 ML/MIN Rate Random Glucose 143 MG/DL Calcium Level 7.8 MG/DL Protein Corrected Calcium 8.9 MG/DL Magnesium Level 2.3 MG/DL Total Protein 5.3 GM/DL Assessment and Plan Problem List: (1) NSVT (nonsustained ventricular tachycardia) Assessment and Plan: no recurrence since low K+ addressed (2) Cardiomyopathy (3) Atrial fibrillation, permanent (4) Hypoalbuminemia (5) Left bundle branch block (6) Troponin level elevated (7) Anasarca Assessment and Plan: Diuresing well (8) Thrombophlebitis arm (9) Pleural effusion (10) Chest pain at rest (11) Intracranial hemorrhage (12) Ventricular tachycardia (paroxysmal) (13) Hypokalemia, excessive renal losses Assessment and Plan: corrected (14) Metabolic alkalosis Assessment and Plan: secondary to loop diuretics Assessment and Plan Major issue is getting more fluid off - gross anasarca - nurse is calling Dr. Pro for further diuretic orders (metolazone? increased furosemide) Jone Gray MD Nov 28, 2016 11:58
[2016-11-28] MEDS: cefTRIAXone INJ 1,000 MG in SODIUM CHLORIDE 0.9% INJ 100 ML IV SCH (14:12)
--- NOTE | 2016-11-28 16:47 | HHI.NPPN ---
Subjective History of Present Illness The patient is a 76 yo [place] male who was brought to this facility for evaluation of extensive fluid retention. and family are the primary historians as he has some baseline dementia s/p CVA. Has been following his PCP, Dr. Beasley, for fluid retention. Was admitted in August for PNA and reports that he has had fluid retention since then. Was started on Lasix 40mg BID and was increased about 3 weeks ago to 60mg BID with only minimal response. He is a LRD kidney transplant patient in 1998 from his son and has not been on any immunosuppressives for a number of years according to his . His initial cause of renal failure is diabetes and was a HD via permacath for a few months before his transplant. According to family, his renal functions have been stable for his entire post-transplant life. Other PMHx of CAD s/p CABG, no known hx of CHF, DM, HTN, BPH without obstruction. No NSAID use. Admitting SCr of 1.94. August 2016 was 1.34 Prior levels have fluctuated between 0.8-1.5 ( Interval History Pt more alert today. He and anxious to get to rehab. No new complaints (Sarah Carbajal) Review of Systems General Constitutional: Fatigue (Sarah Carbajal) Cardiovascular Cardiac: Edema (Sarah Carbajal) Objective Data Data 11/27/16 11/28/16 19:00 07:00 Intake Total 1160 ml 120 ml Output Total 1700 ml 1525 ml Balance -540 ml -1405 ml Intake Oral 960 ml 120 ml IV Total 200 ml Output Urine Total 1700 ml 1525 ml Vital Signs Date Time Temp Pulse Resp B/P Pulse Ox O2 Delivery O2 Flow Rate FiO2 11/28/16 09:27 98 Nasal Cannula 2.00 11/28/16 08:30 97.2 76 18 142/65 98 11/28/16 06:00 70 11/28/16 05:00 68 11/28/16 04:00 68 11/28/16 03:00 66 11/28/16 03:00 97.4 77 14 125/70 99 11/28/16 02:00 64 11/28/16 01:00 66 11/28/16 00:00 76 11/27/16 23:00 76 11/27/16 23:00 96.5 61 24 127/67 100 11/27/16 22:00 76 11/27/16 21:00 76 11/27/16 20:00 80 11/27/16 19:00 97.7 81 24 113/56 97 11/27/16 19:00 74 11/27/16 18:00 67 11/27/16 17:00 65 (Sarah Carbajal) -: 11/25/16 0425 11/28/16 0554 Medication Review Current Medications Medications (Trade) Dose Ordered Sig/Tj Route Start Time Stop Time Status Last Admin (NS Flush) 2 ml UNSCH PRN IVF 11/20/16 10:45 (NS Flush) 2 ml UNSCH PRN IV FLUSH 11/20/16 14:00 11/25/16 14:56 (NS Flush) 2 ml BID IV FLUSH 11/20/16 21:00 11/28/16 09:00 (Tylenol) 650 mg Q4H PRN PO 11/20/16 14:00 11/24/16 15:27 (Narcan Inj) 0.4 mg UNSCH PRN IV 11/20/16 14:00 (Milk Of Magnmarysol Liq) 30 ml Q12H PRN PO 11/20/16 14:00 Calcium Carbonate 1000 mg 1,000 mg BID PO 11/20/16 14:15 11/28/16 09:33 (Rocephin Inj/NS Inj) 100 ml @ 200 mls/hr Q24H IV 11/20/16 15:00 11/28/16 14:12 (D50w (Vial) Inj) 50 ml UNSCH PRN IV 11/20/16 14:45 (Glucagon Inj) 1 mg UNSCH PRN OTHER 11/20/16 14:45 (Nitroglycerin 2% Oint) 0.5 inch Q8HR TOPICAL 11/20/16 22:00 11/28/16 14:11 (Aspirin Chew) 81 mg DAILY CHEW 11/20/16 16:00 11/21/16 08:09 (Urecholine) 25 mg BID PO 11/20/16 21:00 11/28/16 09:33 ([place] 5-325 Mg) 1 tab QID PRN PO 11/20/16 16:00 11/21/16 23:19 (Keppra) 500 mg BID PO 11/20/16 21:00 11/28/16 09:34 (Singulair) 10 mg DAILY PO 11/21/16 09:00 11/28/16 09:00 (Proscar) 5 mg DAILY PO 11/21/16 09:00 11/28/16 09:33 (Melatonin) 10 mg HS PO 11/20/16 21:00 11/27/16 22:01 (Drisdol) 50,000 units Q7D PO 11/20/16 20:00 11/27/16 22:05 (Rocaltrol) 0.5 mcg DAILY PO 11/24/16 09:00 11/28/16 09:34 (Lopressor) 25 mg Q12HR PO 11/25/16 14:30 11/28/16 09:33 (NovoLIN 70/30 INJ) 8 units DAILY@17 SQ 11/25/16 17:00 11/26/16 16:54 (NovoLIN 70/30 INJ) 10 units DAILY@08 SQ 11/26/16 08:00 11/28/16 08:00 (KCl) 20 meq DAILY PO 11/26/16 09:00 11/28/16 09:47 (KCl) 40 meq TID PO 11/26/16 13:00 11/28/16 14:11 (Bumetanide) 2 mg BID@08,16 PO 11/27/16 16:00 11/28/16 09:32 (Sarah Carbajal) Physical Exam General Appearance: No Acute Distress (Sarah Carbajal) Eyes Eye Exam: Sclera White (Sarah Carbajal) Neck Neck Exam: Trachea Midline (Sarah Carbajal) Pulmonary Resp Exam: Clear Bilaterally, Breath Sounds Equal, No Distress, Diminished Breath Sounds (Sarah Carbajal) Cardiology CV Exam: Normal Sinus Rhythm, Good Perfusion, Irregular (Sarah Carbajal) Gastrointestinal/Abdomen GI Exam: Soft, Non-Tender (Sarah Carbajal) Musculoskeletal MS Exam: Good Strength (Sarah Carbajal) Integumentary Skin Exam: Clear, Warm (Sarah Carbajal) Extremeties Extremities Exam: Moderate Edema (brawny edema involving upper thighs and hips. ) (Sarah Carbajal) Neurologic Neuro Exam: Alert, Awake (Sarah Carbajal) Psychiatric Psych Exam: Appropriate Responses (Sarah Carbajal) Assessment/Plan Problem List: (1) DEJA (acute kidney injury) Plan: Edema much improved. Given his diuresis and continued contraction alkalosis, will decrease Bumex to 1mg po BID. We will continue to monitor UOP and renal functions. OK to be discharged to rehab from renal standpoint Medications should be adjusted for the patient's renal decline. Avoid nephrotoxic medications including NSAIDs and iodinated contrast dyes. Avoid gadolinium when eGFR <30. (2) Kidney transplant status, living related donor Plan: Transplanted in 1998 LRD. Was on immunosuppressives, but has not been on for 10 years Appreciate input from transplant surgeon who suggests not resuming. Noted cardiology has concerns regarding administration of amiodarone in the setting of the kidney transplant. Uncertain of specific concern. If cardiology would like to discuss with me will be happy to review any concerns. (3) Anasarca Plan: Reviewed echo. EF of 40%, mild-mod TR, aortic sclerosis, mild pulmonary hypertension (4) Postsurgical hypoparathyroidism Plan: Continue calcitriol to improve calcium absorption as well as by mouth calcium carbonate. The goal of therapy with calcitriol would be to maintain the calcium level slightly low or at low normal to try to avoid the development of hypercalciuria which can occur in this setting with calcitriol. There is a risk of nephrocalcinosis with hypercalciuria. Would subsequently do a 24-hour urine for calcium and subsequently every 6 monthly thereafter if stability is achieved. This was discussed with the patient's and patient and I also strongly advised that they find a ink blender to follow-up with as an outpatient (5) Hypocalcemia Plan: Stable (6) Vitamin D deficiency Plan: Repletion as ordered (7) DM2 (diabetes mellitus, type 2) Plan: Mgmt as per primary (8) Hypertension Plan: As per hx. Hypotensive in house. Medications held. (Sarah Carbajal) Plan The patient is currently on bumetanide not furosemide. He is diuresing quite well and presently do not see an indication to add metolazone. Also will not increase rate of diuresis as the patient already has a contraction alkalosis. Discharge planning to rehabilitation okay from a renal point of view. Patient is doing quite well from a renal point of view with stable renal indices and very good diuresis. The exam, history, and the medical decision-making described in the above note were completed with the assistance of the RUSTY. I reviewed and agree with the findings presented. (Lizz Pro MD) Sarah Carbajal Nov 28, 2016 16:47 Lizz Pro MD Nov 28, 2016 17:09
[2016-11-28] MEDS: MELATONIN 5 MG TAB PO SCH (22:47)
[2016-11-29] VITALS (11 sets, daily range): BP systolic 108–119; BP diastolic 55–72; PULSE 66–90; RESP 20–21; TEMP 96.8–98.4; O2SAT 91–99
[2016-11-29] MEDS: INSULIN NovoLIN REGULAR SUPPLEMENTAL SCALE SQ SCH ×2 (06:27→11:00)
[2016-11-29] MEDS: NITROGLYCERIN 2% OINT 1 GM PACKET TOPICAL SCH (06:27)
[2016-11-29] MEDS: INSULIN HUMAN NPH/R 70/30 1,000 UNITS/10 ML VIAL SQ SCH (08:00)
[2016-11-29] MEDS ORDERED: BUMETANIDE 1 MG TAB PO SCH (08:00)
[2016-11-29 08:08] LABS: HEMATOCRIT 48.3 % (39.0-51.0); MEAN CELL VOLUME 82.7 FL (80.0-100.0); MEAN CORPUSCULAR HEMOGLOBIN 25.3 PG (27.0-34.0); MEAN CORPUSCULAR HGB CONC 30.6 % (32.0-36.0); PLATELET COUNT 87 TH/MM3 (150-450); RED BLOOD COUNT 5.84 MIL/MM3 (4.50-5.90); RED CELL DISTRIBUTION WIDTH 18.3 % (11.6-17.2); WHITE BLOOD COUNT 6.4 TH/MM3 (4.0-11.0)
[2016-11-29 08:24] LABS: REVIEW FLAG FINAL
[2016-11-29 08:26] LABS: BICARBONATE 38.1 MEQ/L (21.0-32.0); MAGNESIUM 2.3 MG/DL (1.5-2.5); POTASSIUM 4.1 MEQ/L (3.5-5.1)
[2016-11-29] MEDS: MONTELUKAST SODIUM 10 MG TAB PO SCH (09:00)
[2016-11-29] MEDS: ASPIRIN 81 MG CHEW TAB CHEW SCH (09:00)
--- NOTE | 2016-11-29 09:31 | PD.CARD.PN ---
Subjective Subjective Remarks no complaints Objective Medications Current Medications Medications (Trade) Dose Ordered Sig/Tj Route Start Time Stop Time Status Last Admin (NS Flush) 2 ml UNSCH PRN IV FLUSH 11/20/16 14:00 11/25/16 14:56 (NS Flush) 2 ml BID IV FLUSH 11/20/16 21:00 11/28/16 22:47 (Tylenol) 650 mg Q4H PRN PO 11/20/16 14:00 11/24/16 15:27 (Narcan Inj) 0.4 mg UNSCH PRN IV 11/20/16 14:00 (Milk Of Magnesia Liq) 30 ml Q12H PRN PO 11/20/16 14:00 Calcium Carbonate 1000 mg 1,000 mg BID PO 11/20/16 14:15 11/28/16 22:47 (Rocephin Inj/NS Inj) 100 ml @ 200 mls/hr Q24H IV 11/20/16 15:00 11/28/16 14:12 (D50w (Vial) Inj) 50 ml UNSCH PRN IV 11/20/16 14:45 (Glucagon Inj) 1 mg UNSCH PRN OTHER 11/20/16 14:45 (Aspirin Chew) 81 mg DAILY CHEW 11/20/16 16:00 11/21/16 08:09 (Urecholine) 25 mg BID PO 11/20/16 21:00 11/28/16 22:47 ([place] 5-325 Mg) 1 tab QID PRN PO 11/20/16 16:00 11/21/16 23:19 (Keppra) 500 mg BID PO 11/20/16 21:00 11/28/16 22:46 (Singulair) 10 mg DAILY PO 11/21/16 09:00 11/28/16 09:00 (Proscar) 5 mg DAILY PO 11/21/16 09:00 11/28/16 09:33 (Melatonin) 10 mg HS PO 11/20/16 21:00 11/28/16 22:47 (Drisdol) 50,000 units Q7D PO 11/20/16 20:00 11/27/16 22:05 (Rocaltrol) 0.5 mcg DAILY PO 11/24/16 09:00 11/28/16 09:34 (Lopressor) 25 mg Q12HR PO 11/25/16 14:30 11/28/16 22:46 (NovoLIN 70/30 INJ) 8 units DAILY@17 SQ 11/25/16 17:00 11/28/16 17:00 (NovoLIN 70/30 INJ) 10 units DAILY@08 SQ 11/26/16 08:00 11/28/16 08:00 (Bumetanide) 1 mg BID@08,16 PO 11/29/16 08:00 (KCl) 20 meq BID PO 11/28/16 21:00 11/28/16 22:46 (Imdur) 30 mg DAILY@07 PO 11/30/16 09:30 UNV Vital Signs / I&O Vital Signs Date Time Temp Pulse Resp B/P Pulse Ox O2 Delivery O2 Flow Rate FiO2 11/29/16 08:00 98.4 86 20 114/64 99 11/29/16 07:00 84 11/29/16 06:00 74 11/29/16 05:00 80 11/29/16 04:00 78 11/29/16 04:00 96.8 87 21 112/72 94 11/29/16 01:00 68 11/29/16 00:00 79 11/29/16 00:00 98.1 68 20 108/55 91 11/28/16 23:00 70 11/28/16 22:00 74 11/28/16 21:00 70 11/28/16 20:00 72 11/28/16 20:00 98.3 79 20 126/68 95 11/28/16 18:00 70 11/28/16 17:00 68 11/28/16 16:00 72 11/28/16 15:00 65 11/28/16 14:00 64 11/28/16 13:00 66 11/28/16 12:00 66 11/28/16 11:00 83 11/28/16 10:00 74 I/O 11/28/16 11/28/16 11/28/16 11/29/16 11/29/16 11/29/16 07:00 15:00 23:00 07:00 15:00 23:00 Intake Total 120 ml 700 ml 480 ml Output Total 1525 ml 1400 ml 1250 ml Balance -1405 ml -700 ml -770 ml Intake Oral 120 ml 600 ml 480 ml IV Total 100 ml Output Urine Total 1525 ml 1400 ml 1250 ml Physical Exam Awake, No acute distress Chest: clear CV S1S2 irr irr Ext: edema markedly better Renal has changed diuretics to PO Laboratory Laboratory Tests Test 11/29/16 07:30 White Blood Count 6.4 TH/MM3 Red Blood Count 5.84 MIL/MM3 Hemoglobin 14.8 GM/DL Hematocrit 48.3 % Mean Corpuscular Volume 82.7 FL Mean Corpuscular Hemoglobin 25.3 PG Mean Corpuscular Hemoglobin 30.6 % Concent Red Cell Distribution Width 18.3 % Platelet Count 87 TH/MM3 Mean Platelet Volume 9.2 FL Sodium Level 140 MEQ/L Potassium Level 4.1 MEQ/L Chloride Level 97 MEQ/L Carbon Dioxide Level 38.1 MEQ/L Anion Gap 5 MEQ/L Blood Urea Nitrogen 22 MG/DL Creatinine 0.82 MG/DL Estimat Glomerular Filtration 91 ML/MIN Rate Random Glucose 202 MG/DL Calcium Level 8.1 MG/DL Magnesium Level 2.3 MG/DL Assessment and Plan Problem List: (1) NSVT (nonsustained ventricular tachycardia) Assessment and Plan: no recurrence (2) Cardiomyopathy (3) Atrial fibrillation, permanent Assessment and Plan: controlled (4) Hypoalbuminemia (5) Left bundle branch block (6) Troponin level elevated (7) Anasarca (8) Thrombophlebitis arm (9) Pleural effusion (10) Chest pain at rest Assessment and Plan: medical therapy (BB and Imdur) (11) Intracranial hemorrhage (12) Hypokalemia, excessive renal losses Assessment and Plan: corrected (13) Metabolic alkalosis Assessment and Plan Cleared for transfer to [facility] Discussed Condition With Jone Gray MD Nov 29, 2016 09:31
--- NOTE | 2016-11-29 09:50 | HHI.PR ---
Subjective Patient symptoms today Pt doing better. Edema improved. Scrotal cellulitis improved. Urine clear. Objective Vital Signs Vital Signs Date Time Temp Pulse Resp B/P Pulse Ox O2 Delivery O2 Flow Rate FiO2 11/29/16 08:00 98.4 86 20 114/64 99 11/29/16 07:00 84 11/29/16 06:00 74 11/29/16 05:00 80 11/29/16 04:00 78 11/29/16 04:00 96.8 87 21 112/72 94 11/29/16 01:00 68 11/29/16 00:00 79 11/29/16 00:00 98.1 68 20 108/55 91 11/28/16 23:00 70 11/28/16 22:00 74 11/28/16 21:00 70 11/28/16 20:00 72 11/28/16 20:00 98.3 79 20 126/68 95 11/28/16 18:00 70 11/28/16 17:00 68 11/28/16 16:00 72 11/28/16 15:00 65 11/28/16 14:00 64 11/28/16 13:00 66 11/28/16 12:00 66 11/28/16 11:00 83 11/28/16 10:00 74 Intake & Output 11/29/16 11/29/16 06:59 18:59 Intake Total 1180 ml Output Total 2650 ml Balance -1470 ml Intake Oral 1080 ml IV Total 100 ml Output Urine Total 2650 ml Result Diagram: 11/29/16 0730 11/29/16 0730 Objective Remarks Abd:soft,nt,nd Scrotum: scrotal erythema and swelling improving Abd:soft,nt,nd Scrotal edema noted Mack[place]: clear with small clot in tube 11/29 Abd:soft,nt,nd Scrotal edema noted Mackenzie: clear Medications and IVs Current Medications Medications (Trade) Dose Ordered Sig/Tj Route Start Time Stop Time Status Last Admin (NS Flush) 2 ml UNSCH PRN IV FLUSH 11/20/16 14:00 11/25/16 14:56 (NS Flush) 2 ml BID IV FLUSH 11/20/16 21:00 11/28/16 22:47 (Tylenol) 650 mg Q4H PRN PO 11/20/16 14:00 11/24/16 15:27 (Narcan Inj) 0.4 mg UNSCH PRN IV 11/20/16 14:00 (Milk Of Magnmarysol Liq) 30 ml Q12H PRN PO 11/20/16 14:00 Calcium Carbonate 1000 mg 1,000 mg BID PO 11/20/16 14:15 11/28/16 22:47 (Rocephin Inj/NS Inj) 100 ml @ 200 mls/hr Q24H IV 11/20/16 15:00 11/28/16 14:12 (D50w (Vial) Inj) 50 ml UNSCH PRN IV 11/20/16 14:45 (Glucagon Inj) 1 mg UNSCH PRN OTHER 11/20/16 14:45 (Aspirin Chew) 81 mg DAILY CHEW 11/20/16 16:00 11/21/16 08:09 (Urecholine) 25 mg BID PO 11/20/16 21:00 11/28/16 22:47 ([place] 5-325 Mg) 1 tab QID PRN PO 11/20/16 16:00 11/21/16 23:19 (Keppra) 500 mg BID PO 11/20/16 21:00 11/28/16 22:46 (Singulair) 10 mg DAILY PO 11/21/16 09:00 11/28/16 09:00 (Proscar) 5 mg DAILY PO 11/21/16 09:00 11/28/16 09:33 (Melatonin) 10 mg HS PO 11/20/16 21:00 11/28/16 22:47 (Drisdol) 50,000 units Q7D PO 11/20/16 20:00 11/27/16 22:05 (Rocaltrol) 0.5 mcg DAILY PO 11/24/16 09:00 11/28/16 09:34 (Lopressor) 25 mg Q12HR PO 11/25/16 14:30 11/28/16 22:46 (NovoLIN 70/30 INJ) 8 units DAILY@17 SQ 11/25/16 17:00 11/28/16 17:00 (NovoLIN 70/30 INJ) 10 units DAILY@08 SQ 11/26/16 08:00 11/28/16 08:00 (Bumetanide) 1 mg BID@08,16 PO 11/29/16 08:00 (KCl) 20 meq BID PO 11/28/16 21:00 11/28/16 22:46 (Imdur) 30 mg DAILY@07 PO 11/30/16 09:30 UNV Assessment and Plan Assessment and Plan 76 yo male with scrotal cellulitis and edema Bladder scan to make sure pt is emptying bladder Scrotal elevation Aggressive rehab Continue Abx 11/26 76 yo male with scrotal cellulitis and edema Scrotal elevation Aggressive rehab Continue Abx 11/[age] yo male with scrotal cellulitis and edema which is resolving Continue with Scrotal elevation Void trial Saturday Continue Rocephin till Saturday then D/C. Continue Proscar F/U as out patient Mariano Lee DO Nov 29, 2016 09:50
[2016-11-29] MEDS: CALCIUM CARBONATE 1.25 GM (CA 500 MG) TAB PO SCH (09:53)
[2016-11-29] MEDS: BETHANECHOL CHL 25 MG TAB PO SCH (09:53)
[2016-11-29] MEDS: levETIRAcetam 500 MG TAB PO SCH (09:54)
[2016-11-29] MEDS: POTASSIUM CHLORIDE 20 MEQ CONTROLLED RELEASE TAB PO SCH (09:54)
[2016-11-29] MEDS: FINASTERIDE 5 MG TAB PO SCH (09:54)
[2016-11-29] MEDS: METOPROLOL TARTRATE 25 MG TAB PO SCH (09:54)
[2016-11-29] MEDS: CALCITRIOL 0.25 MCG CAP PO SCH (09:54)
[2016-11-29] MEDS: SODIUM CHLORIDE 0.9% FLUSH 10 ML FLUSH IV FLUSH SCH (09:55)
[2016-11-29] MEDS ORDERED: POTA20TA5 PO (10:18)
[2016-11-29] MEDS ORDERED: BUME1TAB PO (10:18)
[2016-11-29] MEDS ORDERED: ASPI81CH25 CHEW (10:18)
[2016-11-29] MEDS ORDERED: NOVORP2 SQ (10:18)
[2016-11-29] MEDS ORDERED: CALC500T30 PO (10:18)
[2016-11-29] MEDS ORDERED: ISOS30TA3 PO (10:18)
[2016-11-29] MEDS ORDERED: NOVO7030P2 SQ ×2 (10:18)
[2016-11-29] MEDS ORDERED: CALC.25 PO (10:18)
[2016-11-29] MEDS ORDERED: METO25TA3 PO (10:18)
[2016-11-29] MEDS ORDERED: ERGO1CAP30 PO (10:18)
--- NOTE | 2016-11-29 10:19 | HHI.DS ---
Discharge Summary Admission Date Nov 20, 2016 at 13:26 Discharge Date: Nov 29, 2016 Admitting Diagnosis Hypocalcemia, prolong QTc, elevated troponin (1) Anasarca ICD Code: R60.1 Diagnosis: Principal (2) Troponin level elevated ICD Code: R74.8 Diagnosis: Principal (3) Left bundle branch block ICD Code: I44.7 Diagnosis: Secondary (4) Atrial fibrillation, permanent ICD Code: I48.2 Diagnosis: Secondary (5) Postsurgical hypoparathyroidism ICD Code: E89.2 Diagnosis: Principal (6) DM2 (diabetes mellitus, type 2) ICD Code: E11.9 Diagnosis: Secondary (7) Impaired mobility and activities of daily living ICD Code: Z74.09 Diagnosis: Secondary (8) Acute systolic CHF (congestive heart failure) ICD Code: I50.21 Diagnosis: Principal (9) Pleural effusion ICD Code: J90 Diagnosis: Principal (10) Cardiomyopathy ICD Code: I42.9 Diagnosis: Principal (11) Hypocalcemia ICD Code: E83.51 Diagnosis: Principal Procedures see hospital course Brief History - From Admission This is a 76-year-old male with a 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 Patient was admitted to the hospital in August 2016 for pneumonia and he stated after discharge he was doing well. About one month ago patient developed generalized weakness and lower extremity edema and scrotal edema. He stated that he also had chest pain that started about 3 months ago in which he described as sharp like, occurring for a couple minutes, resolving on its own. At that time he said he had no diaphoresis, nausea vomiting. Patient stated that this happens about 3-4 times a week. At the moment he has no chest pain. Due to severe lower see me edema he increase his Lasix from 40 mg to 60 mg every oh daily. He stated that this helped his edema a lot. Patient also has scrotal edema and which he saw his urologist Dr. Lee and stated that he had epididymitis and was treated with Levaquin. He was told that he needs a total of about 1 month of treatment. Patient does have a history of multiple UTIs. Testicular ultrasound was also ordered as outpatient. Patient saw his PCP on Saturday in regards to his labs. He was told that he had hypocalcemia in which his calcium was 4. He was put on 1 g of calcium carbonate. At that time a renal ultrasound was ordered and service girl was consulted as outpatient. Patient stated because of his severe weakness he is unable to walk. Patient was ambulating after discharge and has not been able to walk the past few weeks. He denied any muscle weakness but stated that is more for generalized weakness/fatigue. Denied any fecal or urinary incontinence. Patient's daughter and are at the bedside. CBC/BMP: 11/29/16 0730 11/29/16 0730 Significant Findings Laboratory Tests Test 11/27/16 11/28/16 11/29/16 07:05 05:54 07:30 Chloride Level 90 MEQ/L 93 MEQ/L 97 MEQ/L (98-107) (98-107) (98-107) Carbon Dioxide Level 44.8 MEQ/L GREATER THAN 38.1 MEQ/L (21.0-32.0) 45.0 MEQ/L (21.0-32.0) (21.0-32.0) Anion Gap 2 MEQ/L (5-15) 2 MEQ/L (5-15) Blood Urea Nitrogen 26 MG/DL (7-18) 24 MG/DL (7-18) 22 MG/DL (7-18) Estimat Glomerular Filtration 76 ML/MIN (>89) 79 ML/MIN (>89) Rate Random Glucose 182 MG/DL 143 MG/DL 202 MG/DL (74-106) (74-106) (74-106) Calcium Level 7.2 MG/DL 7.8 MG/DL 8.1 MG/DL (8.5-10.1) (8.5-10.1) (8.5-10.1) Albumin 2.3 GM/DL (3.4-5.0) Total Protein 5.3 GM/DL (6.4-8.2) Mean Corpuscular Hemoglobin 25.3 PG (27.0-34.0) Mean Corpuscular Hemoglobin 30.6 % Concent (32.0-36.0) Red Cell Distribution Width 18.3 % (11.6-17.2) Platelet Count 87 TH/MM3 (150-450) Imaging Last Impressions Upper Extremity Ultrasound 11/23/16 0000 Signed Impressions: Service Date/Time: Wednesday, November 23, 2016 01:31 - CONCLUSION: Nonocclusive thrombus in the right mid and distal basilic veins. Occlusive thrombus in the right cephalic vein. Fran Jose MD Chest X-Ray 11/20/16 1043 Signed Impressions: Service Date/Time: Sunday, November 20, 2016 11:01 - CONCLUSION: 1. Moderate left pleural effusion and left basilar density likely atelectasis. 2. Cardiomegaly and previous CABG. Fran Jose MD Scrotum Ultrasound 11/20/16 0000 Signed Impressions: Service Date/Time: Sunday, November 20, 2016 16:52 - CONCLUSION: 1. No testicular masses. 2. Marked scrotal skin thickening. Small hydroceles. Mild left varicocele. Kirby Kyle MD Renal Ultrasound 11/20/16 0000 Signed Impressions: Service Date/Time: Sunday, November 20, 2016 16:29 - CONCLUSION: 1. Transplant kidney in the right lower quadrant. No hydronephrosis. Atrophic [place] right kidney. Left kidney not visualized. Ascites. Kirby Kyle MD PE at Discharge GENERAL: in NAD CARDIOVASCULAR: irregular rate and irregular rhythm without murmurs, gallops, or rubs. RESPIRATORY: Breath sounds equal bilaterally. No accessory muscle use. GASTROINTESTINAL: Abdomen soft, non-tender, nondistended. MUSCULOSKELETAL: No cyanosis. + trace to +1 edema BACK: Nontender without obvious deformity. No CVA tenderness. Pelvic scrotum with mild erythema and swelling. Mcintyre in place. Pt update on day of discharge f/u for multiple medical conditions listed in A/P patient had no complaints. Denied any SOB,CP, or palpitations. He stated he is doing well. his is at bedside and asked about his mcintyre. she stated he has been doing a lot better. Hospital Course 76-year-old male past medical history of coronary artery disease status post CABG, penile transplant, chronic kidney disease status post renal transplant, chronic hypocalcemia, type 2 diabetes insulin-dependent, chronic atrial fibrillation, BPH, and history of multiple intracranial bleed who presented with generalized weakness and scrotal/lower extremity edema Severe hypocalcemia due to postsurgical hypoparathyroid -on admission EKG reviewed noted to have prolonged QT 468-503 and Potassium corrected is 5.8. -Patient given 2 grams of calcium gluconate in the ED then started on continuous infusion with calcium gluconate 10 g and 1 L of normal saline at 50 cc/h. -also started on PO calcium and calcitriol. [facility] consults. - recommended to subsequently do a 24-hour urine for calcium and subsequently every 6 monthly thereafter if stability is achieved. -resolved during hospitalization. -per [employer] [facility] goal of Ca is low to low normal levels. Prolonged QT -Most likely secondary to hypocalcemia. Patient was also taking Levaquin and Zofran at home. medication discontinued. -Patient monitor on telemetry. resolved with treatment. Anasarca -patient initially put on IV Lasix. strict I/O. - Echo showed EF of 40%, mild-mod TR, aortic sclerosis, mild pulmonary hypertension -later switched to bumez and given Diamox 500 due to contraction alkalosis. Vitamin D deficiency -patient put on supplements. Atypical chest pain/CAD/CHF/LBBB/elevated troponin -Patient does have a history of CABG. -Troponin mildly elevated at 0.11. -makeup artistry instructor consulted and patient is a poor candidate for any intervention. Lopressor added Cardiomyopathy -Lopressor added. -added asa. not a candidate for anticoagulation due to hx of intracranial bleed. Scrotal cellulitis and edema -patient was put on Rocephin. -Renal ultrasound shows a transplanted kidney in the right lower quadrant without hydronephrosis. The scrotal ultrasound was performed showing no testicular masses, marked scrotal skin thickening of the left hemiscrotum, small hydrocele is noted, mild left varicocele. -his urologist consulted recommend to continue with Rocephin and elevation of the scrotum. -clinically improvement with treatment. -recommend to keep mcintyre in until SaturdayDecember 03 in AM and do a voiding trial. continue Rocephin until Saturday morning. Acute on chronic renal failure -History of renal transplant, kidney given by his son. -may be a component of cardiorenal -service girl management as above. s/p transplant. -transplant surgeon did not recommend restarting immunosuppressants. Left-sided pleural effusion -due to CHF. see treatment as above. History of intracranial bleed -Patient is on Keppra for prophylaxis. -Continue with Keppra. Persistent atrial fibrillation -Anticoagulation contraindicated in patient. -metoprolol was added. 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 and 18 units at night. -patient started on Novolin but as lower dosage due to decrease PO intake and adjusted during hospita course. -he was put on SSI. Chronic back pain/allergic rhinitis -home medication resume but did not require much pain medication. Pt Condition on Discharge: Stable Discharge Disposition: Rehab Inpatient Discharge Time: > 30 minutes Discharge Instructions DIET: Follow Instructions for: Heart Healthy Diet, Diabetic Diet Activities you can perform: Regular-No Restrictions Follow up Referrals: Nephrology - 1 Week SNF/[facility]/ - 2-3 Days Urology - 1 Week with Mariano Lee DO New Medications: Aspirin (Aspirin Low Strength) 81 Mg Chew 81 MG CHEW DAILY heart disease #30 Ref 0 EA Bumetanide (Bumetanide) 1 Mg Tab 1 MG PO BID@08,16 edema #30 Ref 0 TAB Calcitriol (Rocaltrol) 0.25 Mcg Cap 0.5 MCG PO DAILY low calcium #30 Ref 0 CAP Ergocalciferol (Ergocalciferol) 50,000 Unit Cap 27270 UNITS PO Q7D low Vitamin D #4 Ref 0 CAP Insulin Human Isophane-Regular 70-30 Inj (Novolin 70-30 Inj) 1,000 Unit/10 Ml Vial 8 UNITS SQ DAILY@17 diabetes #1 Ref 0 INJECTION Insulin Human Isophane-Regular 70-30 Inj (Novolin 70-30 Inj) 1,000 Unit/10 Ml Vial 10 UNITS SQ DAILY@08 diabetes #1 Ref 0 INJECTION Insulin Human Regular Inj (Novolin R Inj) 1,000 Unit/10 Ml Vial 1 UNIT SQ ACHS SLIDING SCALE diabetes #1 Ref 0 INJECTION Isosorbide Mononitrate ER (Isosorbide Mononitrate ER) 30 Mg [place] 30 MG PO DAILY@07 heart disease #30 Ref 0 TAB Metoprolol Tartrate (Metoprolol Tartrate) 25 Mg Tab 25 MG PO Q12HR heart disease #60 Ref 0 TAB Oyster Shell (Calcium Oyster Shell) 500 Mg Tab 1000 MG PO BID low calcium #60 Ref 0 TAB Potassium Chloride Microencaps (Potassium Chloride Microencaps) 20 Meq Tab 20 MEQ PO BID low potassium #30 Ref 0 TAB Continued Medications: Albuterol Neb (Albuterol Neb) 2.5 Mg/3 Ml Neb 2.5 MG NEB TID NEB PRN SHORTNESS OF BREATH #60 Ref 0 NEBULE Bethanechol (Bethanechol) 25 Mg Tab 25 MG PO BID Urinary Symptom Managemen Ref 0 TAB Finasteride (Alopecia) (Finasteride) 1 Mg Tab 5 MG PO DAILY bph #30 Ref 3 MG Levetiracetam (Keppra) 500 Mg Tab 500 MG PO BID Control Seizures #60 Ref 0 TAB Melatonin (Melatonin) 10 Mg Tab 10 MG PO HS SLEEP Ref 0 TAB Montelukast (Singulair) 10 Mg Tab 10 MG PO DAILY #30 Ref 0 TAB Ondansetron (Zofran) 8 Mg Tab 8 MG PO Q6HR PRN NAUSEA OR VOMITING Ref 0 TAB Discontinued Medications: Furosemide (Lasix) 20 Mg Tab 60 MG PO DAILY PRN EDEMA #30 Ref 0 TAB Hydrocodone-Acetaminophen (Lortab) 5-325 Mg Tab 1 TAB PO QID PRN PAIN Ref 0 TAB Insulin Human Isophane-Regular 70-30 Inj (Novolin 70-30 Inj) 1,000 Unit/10 Ml Vial SQ TIDAC Sliding scale as directed Blood Sugar Management Ref 0 ML Levofloxacin (Levofloxacin) 500 Mg Tablet 500 MG PO DAILY Infection #14 Ref 0 TAB Lorazepam (Lorazepam) 0.5 Mg Tab 0.5 MG PO Q8H Anxiety Ref 0 TAB Oyster Shell (Calcium) 500 Mg Tab 1000 MG PO DAILY Meme Reynolds MD Nov 29, 2016 10:19
[2016-11-30] MEDS ORDERED: ISOSORBIDE MONONITRATE 30 MG TAB PO SCH (10:00)
== END 2016-11-29 14:42 | DRG 640 ==
LOC: NEPE 10:19 → NEDA 13:26 → HCIS 17:28
PROVIDERS: ADMIT Family Medicine; ATTEND Family Medicine
DX: E83.51 Hypocalcemia (principal); I50.21 Acute systolic (congestive) heart failure; I47.2 Ventricular tachycardia; J90 Pleural effusion, not elsewhere classified; E87.3 Alkalosis; I42.9 Cardiomyopathy, unspecified; D69.6 Thrombocytopenia, unspecified; T86.12 Kidney transplant failure; I13.0 Hypertensive heart and chronic kidney disease with heart failure and stage 1 through stage 4 chronic kidney disease, or unspecified chronic kidney disease; I82.611 Acute embolism and thrombosis of superficial veins of right upper extremity; I48.1 Persistent atrial fibrillation; E11.22 Type 2 diabetes mellitus with diabetic chronic kidney disease; E11.42 Type 2 diabetes mellitus with diabetic polyneuropathy; N18.9 Chronic kidney disease, unspecified; M19.90 Unspecified osteoarthritis, unspecified site; I45.81 Long QT syndrome; I25.10 Atherosclerotic heart disease of native coronary artery without angina pectoris; N40.0 Benign prostatic hyperplasia without lower urinary tract symptoms; E87.70 Fluid overload, unspecified; E89.2 Postprocedural hypoparathyroidism; R07.89 Other chest pain; N45.1 Epididymitis; Y83.0 Surgical operation with transplant of whole organ as the cause of abnormal reaction of the patient, or of later complication, without mention of misadventure at the time of the procedure; R60.0 Localized edema; G89.29 Other chronic pain; M54.9 Dorsalgia, unspecified; J30.9 Allergic rhinitis, unspecified; F03.90 Unspecified dementia, unspecified severity, without behavioral disturbance, psychotic disturbance, mood disturbance, and anxiety; E55.9 Vitamin D deficiency, unspecified; R60.1 Generalized edema; N49.2 Inflammatory disorders of scrotum; I27.2 Other secondary pulmonary hypertension; I44.7 Left bundle-branch block, unspecified; E88.09 Other disorders of plasma-protein metabolism, not elsewhere classified; E87.6 Hypokalemia; Z74.09 Other reduced mobility; Z95.5 Presence of coronary angioplasty implant and graft; Z95.1 Presence of aortocoronary bypass graft; Z86.73 Personal history of transient ischemic attack (TIA), and cerebral infarction without residual deficits; Z85.828 Personal history of other malignant neoplasm of skin; Z79.4 Long term (current) use of insulin; R09.02 Hypoxemia; Z86.011 Personal history of benign neoplasm of the brain; Z87.440 Personal history of urinary (tract) infections
CPT/HCPCS: 71010; 76775; 76870; 76937; 80048; 80053; 80069; 81001; 82306; 82550; 82552; 82948; 83735; 83880; 83970; 84100; 84132; 84155; 84484; 85025; 85027; 85610; 85730; 86803; 87070; 87086; 87106; 87340; 93005; 93306; 93971; 93975; 94640; 94664; 96374; J0610; J0696; J1120; J1205; J1815; J1940; J3475; J7030; J7613; P9047

== ENCOUNTER → 2017-08-26 | Day surgery (SDC) | payer MEDICARE ==
[~2017-08-26] MED LIST changes: +ACETAMINOPHEN 1000 MG/100 ML 100 ML IV ONE; +ALBU0.08 NEB; -ALBUS PO; +BUME1TAB PO; +BUPIVACAINE/EPINEPHRINE 0.25% 50 ML VIAL ONE; +CALC.25 PO; -CALC250T PO; +CALC500T30 PO; -CRANCAP2 PO; -FURO1TAB62 PO; +HYDR1CRE70 TOPICAL; +ISOS30TA3 PO; +LACTATED RINGER'S 1000 ML INJ 1,000 ML ONE; -LEVA500T20 PO; +LEVE500T8 PO; -LEVO500T8 PO; +LIDOCAINE 1%/EPINEPHrine 1:100,000 SOLN 30 ML VIAL ONE; +MAGN400T3 PO; +METO25TA3 PO; -MUCI30TA2 PO; +N7030SS SQ; -NYST10007 TOPICAL; +ONDANSETRON HCL 4 MG/2 ML VIAL IV PUSH ONE; +POTA20TA5 PO; +PROPOFOL 200 MG/20 ML AMP IV ONE; +VITA500012 PO; +ceFAZolin INJ 1,000 MG VIAL ONE
--- NOTE | 2017-08-26 08:47 | TN ---
cc: Mauri Hill MD DATE OF SURGERY: 08/26/2017 PREOPERATIVE DIAGNOSIS:. Biopsy of squamous cell carcinoma located on the scalp. POSTOPERATIVE DIAGNOSES: Biopsy of squamous cell carcinoma located on the scalp. PROCEDURE: 1. Excision with full-thickness skin graft. 2. Series of irritating actinic keratosis located on the left parietal scalp and cheek for a grand total of 10 x 2 cm. PROCEDURE PERFORMED: Destruction and curettage. SURGEON: Mauri Hill MD, [facility] ANESTHESIA: LMA general. I also utilized approximately 10 mL of 1% lidocaine with epinephrine. ESTIMATED BLOOD LOSS: Minimal. COMPLICATIONS: None. PROCEDURE: He was properly consented, marked, and anesthetized. The skin was sterilized with Microcyn, sterile draping applied. Excision was done of this lesion located on the center parietal scalp with at least a 0.5 cm to 1 cm sent to pathology for permanent analysis. Due to the size and the location, a full-thickness skin graft was harvested from the right neck. This was appropriately defatted and put in the recipient site, secured in place utilizing 5-0 chromic suture and a tie-over dressing utilizing Xeroform gauze and 4-0 silk and a tie-over dressing type again. The donor site was closed with multiple 2-0 Monocryl suture layers in Reynaldo's fascia, dermis and subcutaneous. The length of the incision including the margins was 2 x 4 cm. Then, attention was directed distal to the areas on the left parietal scalp and cheek area, as well as the samaritan for a grand total of 10 x 2 cm. This was a series of lesions that were irritating actinic keratosis that underwent the destruction and curettage and they were addressed with electrocautery. All were dressed with bacitracin ointment, 4 x 4s, and a compression dressing. Overall, the patient tolerated the procedure well. He was awakened and extubated in the operating room, transferred back to the postanesthesia care unit in stable condition. There were no complications appreciated. The patient tolerated the procedure fairly well. MD KENDAL Bean/ERIBERTO , 08:16 AM , 08:46 AM MICKEY
== END | disposition home or self-care (01) ==
LOC: ESDC 06:26
PROVIDERS: ATTEND Plastic Surgery
DX: C44.42 Squamous cell carcinoma of skin of scalp and neck (principal); L57.0 Actinic keratosis; E11.9 Type 2 diabetes mellitus without complications; Z79.84 Long term (current) use of oral hypoglycemic drugs
CPT/HCPCS: 00300; 11623; 15220; 17000; 17003; 82948; 88305; J0131; J0690; J2405; J3010; J7120

== ENCOUNTER 2017-09-24 15:51 | Inpatient (IN) | payer MEDICARE ==
[~2017-09-24] VITALS: Ht 177.8 cm; Wt 79.2 kg
[~2017-09-24 15:51] MED LIST changes: -ACETAMINOPHEN 1000 MG/100 ML 100 ML IV ONE; -BUPIVACAINE/EPINEPHRINE 0.25% 50 ML VIAL ONE; -LACTATED RINGER'S 1000 ML INJ 1,000 ML ONE; -LIDOCAINE 1%/EPINEPHrine 1:100,000 SOLN 30 ML VIAL ONE; -ONDANSETRON HCL 4 MG/2 ML VIAL IV PUSH ONE; -PROPOFOL 200 MG/20 ML AMP IV ONE; -ceFAZolin INJ 1,000 MG VIAL ONE
[2017-09-24 16:03] VITALS: BP 83/46; PULSE 79; RESP 25; TEMP 99; O2SAT 97
[2017-09-24] MEDS ORDERED: SODIUM CHLOR 0.9% 1000 ML INJ 1,000 ML IV SCH (16:09)
[2017-09-24 16:10] VITALS: BP 94/55; PULSE 83; RESP 25; TEMP 99; O2SAT 97
[2017-09-24 16:13] VITALS: BP 94/55; PULSE 83; RESP 25; TEMP 99; O2SAT 97
[2017-09-24] MEDS ORDERED: PROS5TAB PO (16:35)
[2017-09-24] MEDS ORDERED: CALC500T30 PO (16:35)
[2017-09-24] MEDS ORDERED: NORC5TAB PO (16:35)
[2017-09-24] MEDS ORDERED: MAGN400T2 PO (16:35)
[2017-09-24] MEDS ORDERED: POTA-163 PO (16:35)
[2017-09-24] MEDS ORDERED: TOPR25TA PO (16:35)
[2017-09-24] MEDS ORDERED: BUME1TAB PO (16:35)
--- NOTE | 2017-09-24 16:42 | PD ---
HPI Chief Complaint: Altered Mental Status Time Seen by Provider: 16:09 Travel History International Travel<30 days: No Contact w/Intl Traveler<30days: No Traveled to known affect area: No History of Present Illness HPI 77-year-old male that presents to the ED for evaluation of altered mental status and possible UTI. Patient has a history of apparently being treated for UTIs 2 in the past month. Patient started with ampicillin and then was put on Cipro last. Patient apparently has been doing well he does have a history of dementia as well as atrial fibrillation, kidney transplant patient, CABG lives with family and take care of him. Patient apparently has been having urinary like symptoms has been treated for this 2 by the primary care doctor for this. Patient apparently was improved and had good days the past week but since Saturday patient has been declining become more lethargic and more confused. Patient is able to answer basic questions but otherwise cannot provide much information. He denies any chest pain or shortness of breath or any pain of any kind. Per family he has become incontinent today which is new for him. He does have multiple allergies to different medications. Per family there is no cough or runny nose. No congestion. No fevers chills or sweats. No bowel movement issues. 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 Takes no chemoradiation. Follows up with multiple physicians. He actually follow-up recently for a stress test that was negative. No other medical issues at this time. Patient himself cannot give much history about the family is at bedside and provide much of the information. PFSH Past Medical History Hx Anticoagulant Therapy: No Arthritis: Yes Asthma: No Atrial Fibrillation: Yes Autoimmune Disease: Yes (shingles in the past) Blood Disorders: No Anxiety: No Depression: No Heart Rhythm Problems: Yes Cancer: Yes (SKIN ) Cardiac Catheterization: Yes Cardiovascular Problems: Yes High Cholesterol: No Chemotherapy: No Chest Pain: No Congestive Heart Failure: No COPD: No Cerebrovascular Accident: Yes (cva 2013) Diabetes: Yes Patient Takes Glucophage: No Diminished Hearing: No Endocrine: Yes (Diabetic) Gastrointestinal Disorders: Yes (diarrhea) GERD: No Genitourinary: Yes (RENAL FAILURE) Headaches: No Hepatitis: No Hiatal Hernia: No Hypertension: Yes (not since transplant) Immune Disorder: No Kidney Stones: No Musculoskeletal: Yes (ARTHIRITS) Neurologic: Yes (SEIZURES) Psychiatric: No Reproductive: No Respiratory: No Immunizations Current: Yes Migraines: No Myocardial Infarction: No Radiation Therapy: No Renal Failure: Yes Seizures: Yes Sickle Cell Disease: No Sleep Apnea: No Thyroid Disease: No Ulcer: No Tetanus Vaccination: > 5 Years Influenza Vaccination: Yes PNEUMOCCOCAL Vaccine (Year): 3 Past Surgical History Abdominal Surgery: No AICD: No Appendectomy: No Arteriovenous Shunt: No Body Medical Devices: penile implant Cardiac Surgery: Yes (CABG) Cholecystectomy: No Coronary Artery Bypass Graft: Yes (5WAY BYPASS 94') Coronary Stent: Yes (X1 98') Ear Surgery: No Endocrine Surgery: Yes (PARATHYROIDECTOMY) Eye Surgery: Yes Genitourinary Surgery: Yes (RENAL TRANSPLANT 1998) Gynecologic Surgery: No Insulin Pump: No Joint Replacement: No Neurologic Surgery: Yes (CRAINIOTOMY OCTOBER 2013) Oral Surgery: No Pacemaker: No Thoracic Surgery: No Other Surgery: Yes (renal transplant, parathyroidectomy, cabg x 5, stent x 1, craniotomy x 1. ) Social History Alcohol Use: No Tobacco Use: No Substance Use: No Allergies-Medications (Allergen,Severity, Reaction): Coded Allergies: aspirin (Unverified Allergy, Severe, Bleeding, 09/24/17) diclofenac (Unverified Allergy, Severe, bleeding, 09/24/17) Had a kidney transplant etodolac (Unverified Allergy, Severe, bleeding, 09/24/17) Had a kidney transplant flurbiprofen (Unverified Allergy, Severe, bleeding, 09/24/17) Had a kidney transplant haloperidol (Unverified Allergy, Severe, Confusion, 09/24/17) ibuprofen (Unverified Allergy, Severe, bleeding, 09/24/17) Had a kidney transplant indomethacin (Unverified Allergy, Severe, bleeding, 09/24/17) Had a kidney transplant ketoprofen (Unverified Allergy, Severe, bleeding, 09/24/17) Had a kidney transplant ketorolac (Unverified Allergy, Severe, bleeding, 09/24/17) Had a kidney transplant naproxen (Unverified Allergy, Severe, bleeding, 09/24/17) Had a kidney transplant oxaprozin (Unverified Allergy, Severe, bleeding, 09/24/17) Had a kidney transplant oxcarbazepine (Unverified Allergy, Severe, 09/24/17) Reported Meds & Prescriptions Reported Meds & Active Scripts Active Eq Anti-Itch Maximum Stre (Hydrocortisone (Topical)) 1 % Cre 1 Applic TOPICAL BID Isosorbide Mononitrate ER (Isosorbide Mononitrate) 30 Mg [place] 30 Mg PO DAILY@07 Rocaltrol (Calcitriol) 0.25 Mcg Cap 0.5 Mcg PO DAILY Bethanechol 25 Mg Tab 25 Mg PO BID Melatonin 10 Mg Tab 10 Mg PO HS Keppra (Levetiracetam) 500 Mg Tab 500 Mg PO BID Singulair (Montelukast Sodium) 10 Mg Tab 10 Mg PO DAILY Reported Calcium Oyster Shell (Oyster Shell) 500 Mg Calcium (1250 Mg) Tab 500 Mg PO BID Toprol XL (Metoprolol Succinate) 25 Mg Tab 12.5 Mg PO DAILY [place] (Hydrocodone-Acetaminophen) 5 Mg-325 Mg Tab 1 Tab PO Q6H PRN Proscar (Finasteride) 5 Mg Tab 5 Mg PO DAILY Do not crush. Magnesium Oxide 400 Mg Tab 400 Mg PO DAILY Potassium Chloride ER (Potassium Chloride) 20 Meq Tab 20 Meq PO EVERY OTHER DAY Bumetanide 1 Mg Tab 1 Mg PO EVERY OTHER DAY Albuterol Neb (Albuterol Sulfate) 2.5 Mg/3 Ml Neb 2.5 Mg NEB BID PRN Zofran (Ondansetron HCl) 8 Mg Tab 8 Mg PO PRN Novolin 70/30 Inj (Insulin Human Isoph/Insulin Regular) 1,000 Units/10 Ml Inj SQ ACHS SLIDING SCALE Review of Systems ROS Limitations: Altered Mental Status, Poor Historian Except as stated in HPI: all other systems reviewed are Neg Physical Exam Exam Limitations: Altered Mental Status, Poor Historian Narrative GENERAL: SKIN: Warm and dry. HEAD: Atraumatic. Normocephalic. EYES: Pupils equal and round 4 mms reactive to light and accommodation. No scleral icterus. No injection or drainage. ENT: No nasal bleeding or discharge. Mucous membranes pink and moist. Tongue is midline. No uvula deviation. NECK: Trachea midline. No JVD. CARDIOVASCULAR: Regular rate and rhythm. No murmurs, S3, S4. RESPIRATORY: No accessory muscle use. Clear to auscultation. Breath sounds equal bilaterally. GASTROINTESTINAL: Abdomen soft, non-tender, nondistended. Hepatic and splenic margins not palpable. MUSCULOSKELETAL: Extremities without clubbing, cyanosis, or edema. No obvious deformities. Full range of motion of the upper and lower extremities bilaterally. 2+ pulses bilaterally. NEUROLOGICAL: Awake and alert. No obvious cranial nerve deficits. Motor grossly within normal limits. Five out of 5 muscle strength in the arms and legs. Normal speech. PSYCHIATRIC: Demented mood and affect; insight and judgment minimal Data Data Last Documented VS Vital Signs Date Time Temp Pulse Resp B/P (MAP) Pulse Ox O2 Delivery O2 Flow Rate FiO2 09/24/17 16:13 99.0 83 25 94/55 (68) 97 Room Air Orders Orders Electrocardiogram (09/24/17 16:09) Complete Blood Count With Diff (09/24/17 16:09) Comprehensive Metabolic Panel (09/24/17 16:09) Ckmb (Isoenzyme) Profile (09/24/17 16:09) Troponin I (09/24/17 16:09) Prothrombin Time / Inr (Pt) (09/24/17 16:09) Act Partial Throm Time (Ptt) (09/24/17 16:09) Blood Culture (09/24/17 16:09) Lipase (09/24/17 16:09) Urinalysis - C+S If Indicated (09/24/17 16:09) Cath For Specimen (09/24/17 16:09) Thyroid Stimulating Hormone (09/24/17 16:09) Chest, Single Ap (09/24/17 16:09) Ct Brain W/O Iv Contrast(Rout) (09/24/17 16:09) Iv Access Insert/Monitor (09/24/17 16:09) Ecg Monitoring (09/24/17 16:09) Oximetry (09/24/17 16:09) Sodium Chlor 0.9% 1000 Ml Inj (Ns 1000 M (09/24/17 16:09) Lactic Acid (09/24/17 17:25) Sodium Chlor 0.9% 250 Ml Inj (Ns 250 Ml (09/24/17 18:30) Ct Abd/Pel W Iv Contrast(Rout) (09/24/17 ) Piperacil-Tazo 4.5 Gm Premix (Zosyn 4.5 (09/24/17 18:45) Iodixanol 320 Inj (Rad Ct) (Visipaque 32 (09/24/17 19:35) Labs Laboratory Tests Test 09/24/17 15:37 09/24/17 16:16 09/24/17 16:47 Lactic Acid Level 2.7 mmol/L White Blood Count 17.8 TH/MM3 Red Blood Count 4.10 MIL/MM3 Hemoglobin 11.8 GM/DL Hematocrit 36.2 % Mean Corpuscular Volume 88.3 FL Mean Corpuscular Hemoglobin 28.8 PG Mean Corpuscular Hemoglobin Concent 32.6 % Red Cell Distribution Width 14.7 % Platelet Count 129 TH/MM3 Mean Platelet Volume 9.8 FL Neutrophils (%) (Auto) 83.9 % Lymphocytes (%) (Auto) 3.2 % Monocytes (%) (Auto) 12.5 % Eosinophils (%) (Auto) 0.1 % Basophils (%) (Auto) 0.3 % Neutrophils # (Auto) 14.9 TH/MM3 Lymphocytes # (Auto) 0.6 TH/MM3 Monocytes # (Auto) 2.2 TH/MM3 Eosinophils # (Auto) 0.0 TH/MM3 Basophils # (Auto) 0.1 TH/MM3 CBC Comment AUTO DIFF Differential Total Cells Counted 100 Neutrophils % (Manual) 87 % Band Neutrophils % 2 % Lymphocytes % 3 % Monocytes % 8 % Neutrophils # (Manual) 15.8 TH/MM3 Differential Comment FINAL DIFF MANUAL Toxic Granulation 1+ Platelet Estimate LOW Platelet Morphology Comment NORMAL Prothrombin Time 15.6 SEC Prothromb Time International Ratio 1.5 RATIO Activated Partial Thromboplast Time 36.0 SEC Blood Urea Nitrogen 25 MG/DL Creatinine 1.69 MG/DL Random Glucose 272 MG/DL Total Protein 6.0 GM/DL Albumin 2.8 GM/DL Calcium Level 7.8 MG/DL Alkaline Phosphatase 93 U/L Aspartate Amino Transf (AST/SGOT) 25 U/L Alanine Aminotransferase (ALT/SGPT) 13 U/L Total Bilirubin 1.3 MG/DL Sodium Level 140 MEQ/L Potassium Level 3.9 MEQ/L Chloride Level 101 MEQ/L Carbon Dioxide Level 29.5 MEQ/L Anion Gap 10 MEQ/L Estimat Glomerular Filtration Rate 40 ML/MIN Total Creatine Kinase 23 U/L Troponin I 0.22 NG/ML Lipase 45 U/L Thyroid Stimulating Hormone 3rd Gen 0.885 uIU/ML Urine Color LIGHT-YELLOW Urine Turbidity CLEAR Urine pH 5.5 Urine Specific [place] 1.010 Urine Protein TRACE mg/dL Urine Glucose (UA) 150 mg/dL Urine Ketones NEG mg/dL Urine Occult Blood NEG Urine Nitrite NEG Urine Bilirubin NEG Urine Urobilinogen LESS THAN 2.0 MG/DL Urine Leukocyte Esterase SMALL Urine RBC 1 /hpf Urine WBC 3 /hpf Urine Squamous Epithelial Cells <1 /hpf Urine Hyaline Casts 7 /lpf Microscopic Urinalysis Comment CULT NOT INDICATED MDM Medical Decision Making Medical Screen Exam Complete: Yes Emergency Medical Condition: Yes Medical Record Reviewed: Yes Interpretation(s) CBC & BMP Diagram 09/24/17 16:16 Total Protein 6.0 L, Albumin 2.8 L, Calcium Level 7.8 L, Alkaline Phosphatase 93 , Aspartate Amino Transf (AST/SGOT) 25, Alanine Aminotransferase (ALT/SGPT) 13, Total Bilirubin 1.3 H Last Impressions Head CT 09/24/17 1609 Signed Impressions: Service Date/Time: Sunday, September 24, 2017 18:16 - CONCLUSION: No acute intracranial abnormality or significant change. Mendez Ritter MD Chest X-Ray 09/24/17 1609 Signed Impressions: Service Date/Time: Sunday, September 24, 2017 17:00 - CONCLUSION: Appearance is very similar to prior chest x-ray of 12/05/16. Left pleural effusion and left lower lobe consolidation versus atelectasis again seen. Daniel Ny MD Abdomen/Pelvis CT 09/24/17 0000 Signed Impressions: Service Date/Time: Sunday, September 24, 2017 19:30 - CONCLUSION: 1. Heterogeneously enhancing spleen typical of patchy infarcts, probably acute or subacute. Diffuse atherosclerotic disease noted. 2. Trace ascites. Also mild body wall edema/anasarca. 3. Left greater than right pleural effusions at the visualized lung bases. 4. No perceptible acute abnormality of the transplant kidney in the right iliac fossa. Mendez Ritter MD UA negative for UTI troponin of 0.22 EKG shows sinus rhythm with no sign of acute ischemia or arrhythmia read by me and attending. Differential Diagnosis Sepsis versus UTI versus recurrent UTI versus altered mental status versus acute kidney injury versus pyelonephritis versus CVA versus ACS versus pneumonia Narrative Course 77-year-old male that presents to the ED for evaluation of altered mental status. Patient was properly examined and was found to have signs and symptoms consistent and concerning for possible worsening UTI with altered mental status. Labs and imaging ordered. Labs and imaging were essentially unremarkable other than for elevated white blood cell count with left shift. The acid elevated as well. Patient has a positive troponin of 0.22. Urine is for the most part unremarkable and does not appear to be actively infected. Unclear as to what the source of the sepsis might be. Patient was started on Zosyn by my attending. CT of the abdomen was recommended secondary to no source of infection and this was negative for acute disease alert and what appears to be some infarcts to the spleen. At this time as patient continues to be altered and has no known source of the possible sepsis and recommend admission for further eval. Patient and family agree. Case discussed with Dr. Holland who agrees to admission. Patient was given 500 mL bolus by EVAC and. He was given 250 mL as patient does have a history significant CHF. CT of the abdomen did show effusion of the lungs. Sepsis Criteria SIRS Criteria (2 or more): RR > 20 or PaCO2 < 32, WBC > 48679, < 4000 or > 10 % bands Sepsis Criteria (SIRS+source): Infect source susp/known Severe Sepsis (+one): Lactate >2 Criteria Outcome: Meets severe sepsis criteria Diagnosis Primary Impression: Altered mental status Qualified Codes: R41.82 - Altered mental status, unspecified Additional Impressions: Sepsis Qualified Codes: A41.9 - Sepsis, unspecified organism Troponin level elevated Admitting Information Admitting Physician Requests: Admit Payam Weiss Sep 24, 2017 16:42
[2017-09-24 17:09] LABS: AUTOMATED NEUTROPHIL # 14.9 TH/MM3 (1.8-7.7); BASOPHIL # 0.1 TH/MM3 (0-0.2); BASOPHIL % 0.3 % (0.0-2.0); EOSINOPHIL % 0.1 % (0.0-4.0); HEMATOCRIT 36.2 % (39.0-51.0); HEMOGLOBIN 11.8 GM/DL (13.0-17.0); LYMPH % 3.2 % (9.0-44.0); LYMPHOCYTE # 0.6 TH/MM3 (1.0-4.8); MEAN CELL VOLUME 88.3 FL (80.0-100.0); MEAN CORPUSCULAR HEMOGLOBIN 28.8 PG (27.0-34.0); MEAN CORPUSCULAR HGB CONC 32.6 % (32.0-36.0); MEAN PLATELET VOLUME 9.8 FL (7.0-11.0); MONO % 12.5 % (0.0-8.0); MONOCYTE # 2.2 TH/MM3 (0-0.9); NEUT % 83.9 % (16.0-70.0); PLATELET COUNT 129 TH/MM3 (150-450); RED CELL DISTRIBUTION WIDTH 14.7 % (11.6-17.2); WHITE BLOOD COUNT 17.8 TH/MM3 (4.0-11.0)
[2017-09-24 17:16] LABS: BILIRUBIN, URINE NEG (NEG); BLOOD, URINE NEG (NEG); GLUCOSE,URINE 150 mg/dL (NEG); HYALINE CAST, URINE 7 /lpf (RARE); KETONE, URINE NEG (NEG); NITRITE,URINE NEG (NEG); PH, URINE 5.5 (5.0-8.5); SQUAMOUS EPITHELIAL CELL URINE <1 /hpf (0-5); URINE COLOR LIGHT-YELLOW (YELLW/STRAW); URINE LEUKOCYTE ESTERASE SMALL (NEG)
[2017-09-24 17:38] LABS: INTERNATIONAL NORMALIZED RATIO 1.5 RATIO; PROTHROMBIN TIME - PATIENT 15.6 SEC (9.8-11.6)
[2017-09-24 17:41] LABS: ALBUMIN 2.8 GM/DL (3.4-5.0); ALT (GPT) 13 U/L (12-78); AST (GOT) 25 U/L (15-37); BICARBONATE 29.5 MEQ/L (21.0-32.0); BLOOD UREA NITROGEN 25 MG/DL (7-18); CALCIUM 7.8 MG/DL (8.5-10.1); CHLORIDE 101 MEQ/L (98-107); CREATININE 1.69 MG/DL (0.60-1.30); GLOMERULAR FILTRATION RATE 40 ML/MIN (>89); GLUCOSE,RANDOM 272 MG/DL (74-106); SODIUM (NA) 140 MEQ/L (136-145)
[2017-09-24 17:42] LABS: BANDS 2 % (0-6); LYMPHOCYTES 3 % (9-44); MONOCYTES 8 % (0-8); NEUTROPHIL # MANUAL DIFF 15.8 TH/MM3 (1.8-7.7); POLYS (SEG NEUTROPHILS) 87 % (16-70)
--- NOTE | 2017-09-24 17:42 | RADRPT ---
EXAM DATE/TIME: 09/24/2017 17:00 [facility] COMPARISON: CHEST SINGLE AP, December 05, 2016, 17:01. INDICATIONS : Productive cough and short of breath for one week. MEDICAL HISTORY : Hypertension. Renal failure, chronic. Seizures. Cerebrovascular accident. Afib. Coronary artery disea se. Impotence. Arthritis. Osteoporosis. Gout. Diabetes. Skin cancer. Shingles.Measles. Blood transfus ion SURGICAL HISTORY : CABG. Coronary artery stent. Bilateral cataract removal. Crainiotomy. Penile implant. Renal transplan t. Parathyroidectomy. ENCOUNTER: Initial ACUITY: 1 week PAIN SCORE: 0/10 LOCATION: Bilateral chest FINDINGS: Single AP view of the chest. Median sternotomy wires are present. Small moderate size left pleural ef fusion again seen. Left lower lobe atelectasis versus consolidation again seen. CONCLUSION: Appearance is very similar to prior chest x-ray of 12/05/16. Left pleural effusion and left lower lobe consolidation versus atelectasis again seen. Daniel Ny MD on September 24, 2017 at 17:37 Board Certified Radiologist. This report was verified electronically.
[2017-09-24 17:43] LABS: TOXIC GRANULATION 1+ (NORMAL)
[2017-09-24 17:50] LABS: ALKALINE PHOSPHATASE 93 U/L (45-117); TOTAL BILIRUBIN ADULT 1.3 MG/DL (0.2-1.0); TROPONIN I 0.22 NG/ML (0.02-0.05)
[2017-09-24] MEDS ORDERED: SODIUM CHLOR 0.9% 250 ML INJ 250 ML IV ONE (18:30)
[2017-09-24] MEDS ORDERED: PIPERACIL-TAZO 4.5 GM PREMIX 100 ML IV ONE (18:45)
--- NOTE | 2017-09-24 18:47 | RADRPT ---
EXAM DATE/TIME: 09/24/2017 18:16 [facility] COMPARISON: CT BRAIN W/O CONTRAST, May 30, 2016, 15:25. INDICATIONS : Weakness, altered mental status RADIATION DOSE: 59.54 CTDIvol (mGy) MEDICAL HISTORY : Seizures. Cardiovascular disease Hypertension.Diabetes SURGICAL HISTORY : Parathroidectomy, craniotomy ENCOUNTER: Initial ACUITY: 1 day PAIN SCALE: 0/10 LOCATION: cranial TECHNIQUE: Multiple contiguous axial images were obtained of the head. Using automated exposure control and adj ustment of the mA and/or kV according to patient size, radiation dose was kept as low as reasonably a chievable to obtain optimal diagnostic quality images. DICOM format image data is available electro nically for review and comparison. FINDINGS: CEREBRUM: The ventricles are normal for age. No evidence of midline shift, mass lesion, hemorrhage or acute in farction. No extra-axial fluid collections are seen. Chronic encephalomalacia changes are again seen in the right frontal lobe. Patient has had previous craniotomy. POSTERIOR FOSSA: The cerebellum and brainstem are intact. The 4th ventricle is midline. The cerebellopontine angle i s unremarkable. EXTRACRANIAL: The visualized portion of the orbits is intact. SKULL: The calvaria is particularly intact. Previous right frontal craniotomy. No evidence of skull fractur e. CONCLUSION: No acute intracranial abnormality or significant change. Mendez Ritter MD on September 24, 2017 at 18:44 Board Certified Radiologist. This report was verified electronically.
[2017-09-24] MEDS ORDERED: IODIXANOL 320 MG/ML 10 ML VIAL (for Rad CT) IVCONTRAST ONE (19:35)
--- NOTE | 2017-09-24 20:03 | RADRPT ---
EXAM DATE/TIME: 09/24/2017 19:30 [facility] COMPARISON: No previous studies available for comparison. INDICATIONS : Abdomen pain. IV CONTRAST: 50 cc Visipaque (iodixanol) IV ORAL CONTRAST: No oral contrast ingested. RADIATION DOSE: 16.29 CTDIvol (mGy) MEDICAL HISTORY : Seizures. Cardiovascular disease Hypertension. SURGICAL HISTORY : Craniotomy. Kidney transplant. ENCOUNTER: Initial ACUITY: 1 day PAIN SCALE: 6/10 LOCATION: Bilateral abdomen TECHNIQUE: Volumetric scanning of the abdomen and pelvis was performed. Using automated exposure control and ad justment of the mA and/or kV according to patient size, radiation dose was kept as low as reasonably achievable to obtain optimal diagnostic quality images. DICOM format image data is available electro nically for review and comparison. FINDINGS: LOWER LUNGS: Moderate to large left and small right pleural effusions with basilar atelectasis. LIVER: Homogeneous density without lesion. There is no dilation of the biliary tree. No calcified gallston es. SPLEEN: There is heterogeneous enhancement of the spleen, likely acute or subacute infarction. It is mildly e nlarged at approximately 15.6 cm craniocaudal. PANCREAS: Within normal limits. KIDNEYS: Diffusely atrophic [place] kidneys. There is a transplant kidney in the right iliac fossa and has a no rmal CT appearance. ADRENAL GLANDS: Within normal limits. VASCULAR: Diffuse atherosclerosis noted. No aneurysm. BOWEL/MESENTERY: The stomach, small bowel, and colon demonstrate no acute abnormality. Trace ascites. ABDOMINAL WALL: Within normal limits. RETROPERITONEUM: There is no lymphadenopathy. BLADDER: No wall thickening or mass. REPRODUCTIVE: Within normal limits. INGUINAL: There is no lymphadenopathy or hernia. MUSCULOSKELETAL: No acute bony abnormality demonstrated. CONCLUSION: 1. Heterogeneously enhancing spleen typical of patchy infarcts, probably acute or subacute. Diffuse a therosclerotic disease noted. 2. Trace ascites. Also mild body wall edema/anasarca. 3. Left greater than right pleural effusions at the visualized lung bases. 4. No perceptible acute abnormality of the transplant kidney in the right iliac fossa. Mendez Ritter MD on September 24, 2017 at 19:57 Board Certified Radiologist. This report was verified electronically.
[2017-09-24] MEDS ORDERED: FUROSEMIDE 40 MG/4 ML VIAL IV PUSH ONE (21:30)
[2017-09-24] MEDS ORDERED: ONDANSETRON HCL 4 MG/2 ML VIAL IVP PRN (23:15)
[2017-09-24] MEDS ORDERED: MAGNESIUM HYDROXIDE SUSP 30 ML CUP PO PRN (23:15)
[2017-09-24] MEDS ORDERED: SENNOSIDES 8.6 MG TAB PO PRN (23:15)
[2017-09-24] MEDS ORDERED: ACETAMINOPHEN 325 MG TAB PO PRN (23:15)
[2017-09-24] MEDS ORDERED: BISACODYL 10 MG SUPP RECTAL PRN (23:15)
[2017-09-24] MEDS ORDERED: LACTULOSE SYRUP 20 GM/30 ML CUP PO PRN (23:15)
[2017-09-24] MEDS ORDERED: NALOXONE HCL 0.4 MG/ML AMP IV PUSH PRN (23:15)
[2017-09-24] MEDS ORDERED: SODIUM CHLORIDE 0.9% FLUSH 10 ML FLUSH IV FLUSH PRN (23:15)
[2017-09-24] MEDS ORDERED: HEPARIN SODIUM - SQ 10,000 UNITS/ML VIAL SQ ONE (23:30)
[2017-09-24] MEDS ORDERED: DEXTROSE 50% IN WATER 50 ML VIAL(D50) IV PUSH PRN (23:30)
[2017-09-24] MEDS ORDERED: GLUCAGON 1 MG/ML VIAL OTHER PRN (23:30)
[2017-09-24] MEDS ORDERED: RESP: ALBUTEROL 2.5 MG/IPRATROPIUM 0.5 MG NEB (PRN) NEB (23:30)
[2017-09-24 23:45] VITALS: O2SAT 97
[2017-09-25] VITALS (11 sets, daily range): BP systolic 97–128; BP diastolic 52–67; PULSE 74–108; RESP 16–20; TEMP 97.3–98.4; O2SAT 95–99
--- NOTE | 2017-09-25 00:19 | HHI.HP ---
[facility] Luis Angel Beasley M.D. Admission Diagnosis altered mental status, sepsis with unkown source, troponin elevated Diagnoses: Travel History International Travel<30 Days: No Contact w/Intl Traveler <30 Da: No Traveled to Known Affected Are: No History of Present Illness 77-year-old male with a past medical history significant for atrial fibrillation (not anticoagulated secondary to history of brain bleed), diabetes mellitus, CHF (last echo showed an EF of 35-40% on 11/20/16) and coronary artery disease presents to the emergency department for evaluation of increased lethargy. The patient was seen with his and daughter bedside who state that the patient has underlying dementia but is usually alert and oriented and mobile with his walker. They report that starting yesterday he became lethargic and had decreased responsiveness to them. They state that his previous medical course has been complicated by 2 urinary tract infections for which he completed a course of ampicillin and Cipro. The patient has not been able to ambulate well with his walker and has been complaining of being more tired than normal. He denies any pain. No fevers/chills. No chest pain or shortness of breath. No abdominal pain. No nausea/vomiting/diarrhea. No lateralizing signs/symptoms. Review of Systems Except as stated in HPI: all other systems reviewed are Neg Past Family Social History Past Medical History atrial fibrillation (not anticoagulated secondary to history of brain bleed), diabetes mellitus, CHF (last echo showed an EF of 35-40% on 11/20/16) and coronary artery disease Past Surgical History Kidney transplant 1998 CABG 5 Stent placement 1 Parathyroidectomy Reported Medications Reported Meds & Active Scripts Active Eq Anti-Itch Maximum Stre (Hydrocortisone (Topical)) 1 % Cre 1 Applic TOPICAL BID Isosorbide Mononitrate ER (Isosorbide Mononitrate) 30 Mg [place] 30 Mg PO DAILY@07 Rocaltrol (Calcitriol) 0.25 Mcg Cap 0.5 Mcg PO DAILY Bethanechol 25 Mg Tab 25 Mg PO BID Melatonin 10 Mg Tab 10 Mg PO HS Keppra (Levetiracetam) 500 Mg Tab 500 Mg PO BID Singulair (Montelukast Sodium) 10 Mg Tab 10 Mg PO DAILY Reported Calcium Oyster Shell (Oyster Shell) 500 Mg Calcium (1250 Mg) Tab 500 Mg PO BID Toprol XL (Metoprolol Succinate) 25 Mg Tab 12.5 Mg PO DAILY [place] (Hydrocodone-Acetaminophen) 5 Mg-325 Mg Tab 1 Tab PO Q6H PRN Proscar (Finasteride) 5 Mg Tab 5 Mg PO DAILY Do not crush. Magnesium Oxide 400 Mg Tab 400 Mg PO DAILY Potassium Chloride ER (Potassium Chloride) 20 Meq Tab 20 Meq PO EVERY OTHER DAY Bumetanide 1 Mg Tab 1 Mg PO EVERY OTHER DAY Albuterol Neb (Albuterol Sulfate) 2.5 Mg/3 Ml Neb 2.5 Mg NEB BID PRN Zofran (Ondansetron HCl) 8 Mg Tab 8 Mg PO PRN Novolin 70/30 Inj (Insulin Human Isoph/Insulin Regular) 1,000 Units/10 Ml Inj SQ ACHS SLIDING SCALE Allergies: Coded Allergies: aspirin (Unverified Allergy, Severe, Bleeding, 09/24/17) diclofenac (Unverified Allergy, Severe, bleeding, 09/24/17) Had a kidney transplant etodolac (Unverified Allergy, Severe, bleeding, 09/24/17) Had a kidney transplant flurbiprofen (Unverified Allergy, Severe, bleeding, 09/24/17) Had a kidney transplant haloperidol (Unverified Allergy, Severe, Confusion, 09/24/17) ibuprofen (Unverified Allergy, Severe, bleeding, 09/24/17) Had a kidney transplant indomethacin (Unverified Allergy, Severe, bleeding, 09/24/17) Had a kidney transplant ketoprofen (Unverified Allergy, Severe, bleeding, 09/24/17) Had a kidney transplant ketorolac (Unverified Allergy, Severe, bleeding, 09/24/17) Had a kidney transplant naproxen (Unverified Allergy, Severe, bleeding, 09/24/17) Had a kidney transplant oxaprozin (Unverified Allergy, Severe, bleeding, 09/24/17) Had a kidney transplant oxcarbazepine (Unverified Allergy, Severe, 09/24/17) Family History Family history significant for diabetes mellitus Social History Negative for alcohol, tobacco and illicit drugs Physical Exam Vital Signs Vital Signs Date Time Temp Pulse Resp B/P (MAP) Pulse Ox O2 Delivery O2 Flow Rate FiO2 09/24/17 23:45 97 Nasal Cannula 1.50 09/24/17 20:53 16 99 Room Air 2.00 09/24/17 16:13 99.0 83 25 94/55 (68) 97 Room Air 09/24/17 16:10 99.0 83 25 94/55 (68) 97 Room Air 09/24/17 16:08 70 25 97 Room Air 09/24/17 16:03 99.0 79 25 83/46 (58) 97 Physical Exam GENERAL: male lying in bed sleeping SKIN: No rashes, ecchymoses or lesions. Cool and dry. HEAD: Atraumatic. Normocephalic. No temporal or scalp tenderness. EYES: Pupils equal round and reactive. Extraocular motions intact. No scleral icterus. No injection or drainage. ENT: Nose without bleeding, purulent drainage or septal hematoma. Throat without erythema, tonsillar hypertrophy or exudate. Uvula midline. Airway patent. NECK: Trachea midline. No JVD or lymphadenopathy. Supple, nontender, no meningeal signs. CARDIOVASCULAR: Regular rate and rhythm without murmurs, gallops, or rubs. RESPIRATORY: Bilateral crackles GASTROINTESTINAL: Abdomen soft, non-tender, nondistended. No hepato-splenomegaly , or palpable masses. No guarding. MUSCULOSKELETAL: Extremities without clubbing, cyanosis, or edema. No joint tenderness, effusion, or edema noted. No calf tenderness. NEUROLOGICAL: Drowsy. Cranial nerves II through XII intact. Motor and sensory grossly within normal limits. Normal speech. Laboratory Laboratory Tests Test 09/24/17 15:37 09/24/17 16:16 09/24/17 16:47 Lactic Acid Level 2.7 White Blood Count 17.8 Red Blood Count 4.10 Hemoglobin 11.8 Hematocrit 36.2 Mean Corpuscular Volume 88.3 Mean Corpuscular Hemoglobin 28.8 Mean Corpuscular Hemoglobin Concent 32.6 Red Cell Distribution Width 14.7 Platelet Count 129 Mean Platelet Volume 9.8 Neutrophils (%) (Auto) 83.9 Lymphocytes (%) (Auto) 3.2 Monocytes (%) (Auto) 12.5 Eosinophils (%) (Auto) 0.1 Basophils (%) (Auto) 0.3 Neutrophils # (Auto) 14.9 Lymphocytes # (Auto) 0.6 Monocytes # (Auto) 2.2 Eosinophils # (Auto) 0.0 Basophils # (Auto) 0.1 CBC Comment AUTO DIFF Differential Total Cells Counted 100 Neutrophils % (Manual) 87 Band Neutrophils % 2 Lymphocytes % 3 Monocytes % 8 Neutrophils # (Manual) 15.8 Differential Comment FINAL DIFF MANUAL Toxic Granulation 1+ Platelet Estimate LOW Platelet Morphology Comment NORMAL Prothrombin Time 15.6 Prothromb Time International Ratio 1.5 Activated Partial Thromboplast Time 36.0 Blood Urea Nitrogen 25 Creatinine 1.69 Random Glucose 272 Total Protein 6.0 Albumin 2.8 Calcium Level 7.8 Alkaline Phosphatase 93 Aspartate Amino Transf (AST/SGOT) 25 Alanine Aminotransferase (ALT/SGPT) 13 Total Bilirubin 1.3 Sodium Level 140 Potassium Level 3.9 Chloride Level 101 Carbon Dioxide Level 29.5 Anion Gap 10 Estimat Glomerular Filtration Rate 40 Total Creatine Kinase 23 Troponin I 0.22 Lipase 45 Thyroid Stimulating Hormone 3rd Gen 0.885 Urine Color LIGHT-YELLOW Urine Turbidity CLEAR Urine pH 5.5 Urine Specific [place] 1.010 Urine Protein TRACE Urine Glucose (UA) 150 Urine Ketones NEG Urine Occult Blood NEG Urine Nitrite NEG Urine Bilirubin NEG Urine Urobilinogen LESS THAN 2.0 Urine Leukocyte Esterase SMALL Urine RBC 1 Urine WBC 3 Urine Squamous Epithelial Cells <1 Urine Hyaline Casts 7 Microscopic Urinalysis Comment CULT NOT INDICATED Date/Time Source Procedure Growth Status 09/24/17 16:16 Blood Peripheral Aerobic Blood Culture Pending Received 09/24/17 16:16 Blood Peripheral Anaerobic Blood Culture Pending Received Result Diagram: 09/24/17 1616 09/24/17 1616 Caprini VTE Risk Assessment Caprini VTE Risk Assessment: Mod/High Risk (score >= 2) Caprini Risk Assessment Model Point Value = 1 Point Value = 2 Point Value = 3 Point Value = 5 Age 41-60 Minor surgery BMI > 25 kg/m2 Swollen legs Varicose veins or History of unexplained or recurrent spontaneous Oral contraceptives or hormone replacement Sepsis (< 1 month) Serious lung disease, including pneumonia (< 1 month) Abnormal pulmonary function Acute myocardial infarction Congestive heart failure (< 1 month) History of inflammatory bowel disease Medical patient at bed rest Age 61-74 Arthroscopic surgery Major open surgery (> 45 min) Laparoscopic surgery (> 45 min) Malignancy Confined to bed (> 72 hours) Immobilizing plaster cast Central venous access Age >= 75 History of VTE Family history of VTE Factor V Leiden Prothrombin [id number] Lupus anticoagulant Anticardiolipin antibodies Elevated serum homocysteine Heparin-induced thrombocytopenia Other congenital or acquired thrombophilia Stroke (< 1 month) Elective arthroplasty Hip, pelvis, or leg fracture Acute spinal cord injury (< 1 month) Prophylaxis Regimen Total Risk Factor Score Risk Level Prophylaxis Regimen 0-1 Low Early ambulation 2 Moderate Order ONE of the following: *Sequential Compression Device (SCD) *Heparin 5000 units SQ BID 3-4 Higher Order ONE of the following medications: *Heparin 5000 units SQ TID *Enoxaparin/Lovenox 40 mg SQ daily (WT < 150 kg, CrCl > 30 mL/min) *Enoxaparin/Lovenox 30 mg SQ daily (WT < 150 kg, CrCl > 10-29 mL/min) *Enoxaparin/Lovenox 30 mg SQ BID (WT < 150 kg, CrCl > 30 mL/min) AND/OR *Sequential Compression Device (SCD) 5 or more Highest Order ONE of the following medications: *Heparin 5000 units SQ TID (Preferred with Epidurals) *Enoxaparin/Lovenox 40 mg SQ daily (WT < 150 kg, CrCl > 30 mL/min) *Enoxaparin/Lovenox 30 mg SQ daily (WT < 150 kg, CrCl > 10-29 mL/min) *Enoxaparin/Lovenox 30 mg SQ BID (WT < 150 kg, CrCl > 30 mL/min) AND *Sequential Compression Device (SCD) Assessment and Plan Assessment and Plan Assessment/plan: 1. Altered mental status/lethargy/SIRS Patient with leukocytosis, elevated lactic acid CT head negative CT of the abdomen/pelvis negative for acute findings History of previous UTI status post treatment 2, UA with small leukocyte esterase Urine culture pending Blood cultures pending Chest x-ray significant for left pleural effusion with left lower lobe consolidation versus atelectasis, unchanged from prior Cannot exclude underlying pneumonia Rocephin Ancef azithromycin to cover for possible pneumonia versus urinary tract infection 2. CHF Patient with crackles on exam CT of the abdomen/pelvis showed anasarca and bilateral pleural effusions Status post 1 dose IV Lasix Increase home Bumex to 1 mg daily 3. Diabetes mellitus Sliding-scale insulin Monitor blood glucose 4. Atrial fibrillation Continue home medications Patient not anticoagulated secondary to brain bleed 5. CAD Continue home medications 6. Acute kidney injury BUN/creatinine 25/1.69 Baseline 0.8 Monitor renal function Avoid aggressive IV fluid hydration secondary to CHF and anasarca FEN Heart healthy diabetic diet Electrolytes: Monitor and replete as needed Holding pharmacologic anticoagulation secondary to history of brain bleed Physician Certification 2 Midnight Certification Type: Admission for Inpatient Services Order for Inpatient Services The services are ordered in accordance with Medicare regulations or non- Medicare payer requirements, as applicable. In the case of services not specified as inpatient-only, they are appropriately provided as inpatient services in accordance with the 2-midnight benchmark. Estimated LOS (days): 2 2 days is the estimated time the patient will need to remain in the hospital, assuming treatment plan goals are met and no additional complications. Post-Hospital Plan: Not yet determined Vida Holland MD Sep 25, 2017 00:18
[2017-09-25] MEDS: cefTRIAXone INJ 1,000 MG in SODIUM CHLORIDE 0.9% INJ 100 ML IV SCH (00:40)
[2017-09-25] MEDS ORDERED: PIPERACIL-TAZO 3.375 GM PREMIX 50 ML IV SCH (01:00)
[2017-09-25] MEDS: AZITHROMYCIN INJ 500 MG in SODIUM CHLOR 0.9% 250 ML INJ 250 ML IV SCH (01:25)
[2017-09-25 01:47] LABS: AUTOMATED NEUTROPHIL # 10.8 TH/MM3 (1.8-7.7); BASOPHIL % 0.1 % (0.0-2.0); EOSINOPHIL % 0.2 % (0.0-4.0); HEMATOCRIT 37.7 % (39.0-51.0); HEMOGLOBIN 12.5 GM/DL (13.0-17.0); LYMPH % 8.3 % (9.0-44.0); LYMPHOCYTE # 1.2 TH/MM3 (1.0-4.8); MEAN CELL VOLUME 88.5 FL (80.0-100.0); MEAN CORPUSCULAR HEMOGLOBIN 29.3 PG (27.0-34.0); MEAN CORPUSCULAR HGB CONC 33.1 % (32.0-36.0); MEAN PLATELET VOLUME 9.4 FL (7.0-11.0); MONO % 15.3 % (0.0-8.0); MONOCYTE # 2.2 TH/MM3 (0-0.9); NEUT % 76.1 % (16.0-70.0); PLATELET COUNT 103 TH/MM3 (150-450); RED BLOOD COUNT 4.26 MIL/MM3 (4.50-5.90); RED CELL DISTRIBUTION WIDTH 14.8 % (11.6-17.2); WHITE BLOOD COUNT 14.2 TH/MM3 (4.0-11.0)
[2017-09-25 01:56] LABS: BICARBONATE 29.8 MEQ/L (21.0-32.0); CREATININE 1.42 MG/DL (0.60-1.30)
[2017-09-25 02:53] LABS: OVALOCYTES 1+ (NORMAL)
[2017-09-25] MEDS: RESP: ALBUTEROL 2.5 MG/IPRATROPIUM 0.5 MG NEB (SCH) NEB ×4 (03:48→20:32)
[2017-09-25] MEDS: ISOSORBIDE MONONITRATE 30 MG CR TAB (IMDUR) PO SCH (06:54)
[2017-09-25] MEDS: INSULIN ASPART SUPPLEMENTAL SCALE SQ SCH ×4 (07:30→21:41)
[2017-09-25] MEDS ORDERED: HEPARIN SODIUM - SQ 10,000 UNITS/ML VIAL SQ SCH (08:00)
[2017-09-25] MEDS: MAGNESIUM OXIDE 400 MG TAB PO SCH (08:35)
[2017-09-25] MEDS: MONTELUKAST SODIUM 10 MG TAB PO SCH (08:35)
[2017-09-25] MEDS: levETIRAcetam 500 MG TAB PO SCH ×2 (08:35→21:24)
[2017-09-25] MEDS: CALCITRIOL 0.25 MCG CAP PO SCH (08:35)
[2017-09-25] MEDS: CALCIUM CARBONATE 1.25 GM (CA 500 MG) TAB PO SCH ×2 (08:35→21:24)
[2017-09-25] MEDS: BETHANECHOL CHL 25 MG TAB PO SCH ×2 (08:35→21:24)
[2017-09-25] MEDS: FINASTERIDE 5 MG TAB PO SCH (08:36)
[2017-09-25] MEDS: SODIUM CHLORIDE 0.9% FLUSH 10 ML FLUSH IV FLUSH SCH ×2 (08:40→21:24)
[2017-09-25] MEDS: METOPROLOL SUCCINATE 25 MG EXTENDED RELEASE TAB PO SCH (08:41)
[2017-09-25] MEDS ORDERED: BUMETANIDE 1 MG TAB PO SCH (09:00)
--- NOTE | 2017-09-25 09:14 | EKG ---
Date Performed: 09/24/2017 Time Performed: 16:25:35 PTAGE: 77 years EKG: ATRIAL FIBRILLATION INTRAVENTRICULAR CONDUCTION DELAY INFERIOR MYOCARDIAL INFARCTION KRYSTLE LATERAL MYOCARDIAL INFARCTION ABNORMAL ECG PREVIOUS TRACING : 11/20/2016 10.53 DOCTOR: Efrain Franz Interpretating Date/Time 09/25/2017 09:14:18
--- NOTE | 2017-09-25 09:40 | HHI.PR ---
Subjective Remarks F/u dehydration. Better back to baseline. Chronic cough from PND seen with , PT dw RN Objective Vitals Vital Signs Date Time Temp Pulse Resp B/P (MAP) Pulse Ox O2 Delivery O2 Flow Rate FiO2 09/25/17 08:49 Nasal Cannula 2.00 09/25/17 08:09 98 Nasal Cannula 2.00 09/25/17 08:00 87 09/25/17 04:06 93 09/25/17 04:00 97.5 97 16 105/56 (72) 99 09/25/17 01:19 74 09/25/17 01:04 Nasal Cannula 2.00 09/25/17 00:27 97.3 82 18 101/58 (72) 99 09/24/17 23:45 97 Nasal Cannula 1.50 09/24/17 20:53 16 99 Room Air 2.00 09/24/17 16:13 99.0 83 25 94/55 (68) 97 Room Air 09/24/17 16:10 99.0 83 25 94/55 (68) 97 Room Air 09/24/17 16:08 70 25 97 Room Air 09/24/17 16:03 99.0 79 25 83/46 (58) 97 I/O 09/24/17 09/24/17 09/24/17 09/25/17 09/25/17 09/25/17 07:00 15:00 23:00 07:00 15:00 23:00 Intake Total 425 ml Balance 425 ml Intake Oral 75 ml IV Total 350 ml # Voids 1 Result Diagram: 09/25/17 0114 09/25/17 0114 Imaging Last Impressions Head CT 09/24/17 1609 Signed Impressions: Service Date/Time: Sunday, September 24, 2017 18:16 - CONCLUSION: No acute intracranial abnormality or significant change. Mendez Ritter MD Chest X-Ray 09/24/17 1609 Signed Impressions: Service Date/Time: Sunday, September 24, 2017 17:00 - CONCLUSION: Appearance is very similar to prior chest x-ray of 12/05/16. Left pleural effusion and left lower lobe consolidation versus atelectasis again seen. Daniel Ny MD Abdomen/Pelvis CT 09/24/17 0000 Signed Impressions: Service Date/Time: Sunday, September 24, 2017 19:30 - CONCLUSION: 1. Heterogeneously enhancing spleen typical of patchy infarcts, probably acute or subacute. Diffuse atherosclerotic disease noted. 2. Trace ascites. Also mild body wall edema/anasarca. 3. Left greater than right pleural effusions at the visualized lung bases. 4. No perceptible acute abnormality of the transplant kidney in the right iliac fossa. Mendez Ritter MD Objective Remarks GENERAL: male in no distress SKIN: No rashes, ecchymoses or lesions. Cool and dry. HEAD: Atraumatic. Normocephalic. No temporal or scalp tenderness. EYES: Pupils equal round and reactive. Extraocular motions intact. No scleral icterus. No injection or drainage. ENT: Nose without bleeding, purulent drainage or septal hematoma. Throat without erythema, tonsillar hypertrophy or exudate. Uvula midline. Airway patent. NECK: Trachea midline. No JVD or lymphadenopathy. Supple, nontender, no meningeal signs. CARDIOVASCULAR: Regular rate and rhythm without murmurs, gallops, or rubs. RESPIRATORY: Bilateral crackles GASTROINTESTINAL: Abdomen soft, non-tender, nondistended. No hepato-splenomegaly , or palpable masses. No guarding. MUSCULOSKELETAL: Extremities without clubbing, cyanosis, or edema. No joint tenderness, effusion, or edema noted. No calf tenderness. NEUROLOGICAL: Alert and awake. Cranial nerves II through XII intact. Motor and sensory grossly within normal limits. Normal speech. A/P Problem List: (1) Generalized weakness ICD Code: R53.1 - Weakness Status: Acute (2) Altered mental status ICD Code: R41.82 - Altered mental status, unspecified Status: Acute Assessment and Plan 1. Encephalopathy, multifactorial from dehydration and possible sepsis with history of dementia. He is improved back to baseline per . Cannot exclude underlying pneumonia patient with cough continue IV Rocephin and Zithromax follow-up cultures. Altered mental status/lethargy/SIRS 2. CHF. Stable continue Bumex. CHF education, I/O and monitor weight 3. Diabetes mellitus. Stable continue sliding-scale 4. Atrial fibrillation. Stable continue Toprol Patient not anticoagulated secondary to brain bleed 5. CAD. Denies chest pain and shortness of breath. Troponin elevation secondary to dehydration, acute kidney injury and possible sepsis. Does not want cardiac catheterization as recommended by cardiology because of history of kidney transplant. Continue medical management 6. Acute kidney injury secondary to dehydration with history of renal transplant. 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 Gentle IV hydration if oral intake less than 50% Electrolytes: Monitor and replete as needed Holding pharmacologic anticoagulation secondary to history of brain bleed and thrombocytopenia Discharge Planning Possible discharge in 1-2 days Problem Qualifiers (1) Altered mental status: Qualified Codes: R41.82 - Altered mental status, unspecified Jong Tariq MD Sep 25, 2017 09:39
[2017-09-25] MEDS ORDERED: SODIUM CHLOR 0.9% 1000 ML INJ 1,000 ML IV PRN (09:45)
--- NOTE | 2017-09-25 13:34 | HHI.DCPOC ---
Discharge Care Plan Diagnosis: (1) Troponin level elevated (2) Generalized weakness Your Health Problems Are: Difficulty with ADL Exercise Tolerance Goals to Promote Your Health * To prevent worsening of your condition and complications * To maintain your health at the optimal level Directions to Meet Your Goals Take your medications as prescribed Follow your dietary instruction Follow activity as directed Keep your appointments as scheduled Take your immunizations and boosters as scheduled If your symptoms worsen call your PCP, if no PCP go to Urgent Care Center or Emergency Room Smoking is Dangerous to Your Health. Avoid second hand smoke Call the 24-hour hour crisis hotline for domestic abuse at Jong Tariq MD Sep 25, 2017 13:34
--- NOTE | 2017-09-25 17:10 | PD.CONS ---
[facility] Service Nephrology Consult Requested By Dr. Tariq Reason for Consult Known to our services for CKD stage 2/3, hx of renal transplant Primary Care Physician Luis Angel Beasley M.D. History of Present Illness The patient is a 77 yo [place] male with PMHx of kidney transplant in 1998 (on no immunosuppressives since 1998), hypoparathyroidism, cardiomyopathy, DM, HTN, BPH , CAD, who presented to this facility via [facility] on 09/23 with AMS. His , who is present during examination, states that for 2 days prior to his admission, he was lethargic, not eating nor drinking well, and was overall not himself. States that he has had 2 urinary tract infections in the past month treated by his GP initially with Ampicillin and a second course with Cipro and seemed to be recovering well up until about 4 days ago. Denies any NVD. No cough, no SOB , no fever. CXR shows some consolidation with moderate to large left pleural effusion. No CHF. Abdominal CT was overall negative. Admitting SCr was 1.69 that improved to 1.42 at consult. Outpatient labs in Jul showed SCr of 1.4 with estimated GFR at 42. At that visit, his Bumex was decreased to 1mg QOD (from QD) and SCr improved to 1.1 on . Baseline SCr 0.8-1.1. Is a LDRT recipient in 1998 and has not been on any immunosuppressives since 2008. At the present, the says he is back to his baseline. The patient himself offers no specific complaints. (Sarah Carbajal) Past Family Social History Allergies: Coded Allergies: aspirin (Unverified Allergy, Severe, Bleeding, 09/24/17) diclofenac (Unverified Allergy, Severe, bleeding, 09/24/17) Had a kidney transplant etodolac (Unverified Allergy, Severe, bleeding, 09/24/17) Had a kidney transplant flurbiprofen (Unverified Allergy, Severe, bleeding, 09/24/17) Had a kidney transplant haloperidol (Unverified Allergy, Severe, Confusion, 09/24/17) ibuprofen (Unverified Allergy, Severe, bleeding, 09/24/17) Had a kidney transplant indomethacin (Unverified Allergy, Severe, bleeding, 09/24/17) Had a kidney transplant ketoprofen (Unverified Allergy, Severe, bleeding, 09/24/17) Had a kidney transplant ketorolac (Unverified Allergy, Severe, bleeding, 09/24/17) Had a kidney transplant naproxen (Unverified Allergy, Severe, bleeding, 09/24/17) Had a kidney transplant oxaprozin (Unverified Allergy, Severe, bleeding, 09/24/17) Had a kidney transplant oxcarbazepine (Unverified Allergy, Severe, 09/24/17) Past Medical History LDRT in 1998 CKD stage 2/3 CAD CHF Hypoparathyroidism DM HTN Past Surgical History CABG Kidney transplant Parathyroidectomy Craniotomy Reported Medications Eq Anti-Itch Maximum Stre (Hydrocortisone (Topical)) 1 % Cre 1 Applic TOPICAL BID Isosorbide Mononitrate ER (Isosorbide Mononitrate) 30 Mg Sidney 30 Mg PO DAILY@07 Rocaltrol (Calcitriol) 0.25 Mcg Cap 0.5 Mcg PO DAILY Bethanechol 25 Mg Tab 25 Mg PO BID Melatonin 10 Mg Tab 10 Mg PO HS Keppra (Levetiracetam) 500 Mg Tab 500 Mg PO BID Singulair (Montelukast Sodium) 10 Mg Tab 10 Mg PO DAILY Calcium Oyster Shell (Oyster Shell) 500 Mg Calcium (1250 Mg) Tab 500 Mg PO BID Toprol XL (Metoprolol Succinate) 25 Mg Tab 12.5 Mg PO DAILY [employer] (Hydrocodone-Acetaminophen) 5 Mg-325 Mg Tab 1 Tab PO Q6H PRN Proscar (Finasteride) 5 Mg Tab 5 Mg PO DAILY Do not crush. Magnesium Oxide 400 Mg Tab 400 Mg PO DAILY Potassium Chloride ER (Potassium Chloride) 20 Meq Tab 20 Meq PO EVERY OTHER DAY Bumetanide 1 Mg Tab 1 Mg PO EVERY OTHER DAY Albuterol Neb (Albuterol Sulfate) 2.5 Mg/3 Ml Neb 2.5 Mg NEB BID PRN Zofran (Ondansetron HCl) 8 Mg Tab 8 Mg PO PRN Novolin 70/30 Inj (Insulin Human Isoph/Insulin Regular) 1,000 Units/10 Ml Inj SQ ACHS SLIDING SCALE Active Ordered Medications Current Medications Medications (Trade) Dose Ordered Sig/Tj Route Start Time Stop Time Status Last Admin (NS Flush) 2 ml UNSCH PRN IV FLUSH 09/24/17 23:15 (NS Flush) 2 ml BID IV FLUSH 4/25/18 09:00 09/25/17 08:40 (Tylenol) 650 mg Q4H PRN PO 09/24/17 23:15 (Zofran Inj) 4 mg Q6H PRN IVP 09/24/17 23:15 (Narcan Inj) 0.4 mg UNSCH PRN IV PUSH 09/24/17 23:15 (Milk Of Magnesia Liq) 30 ml Q12H PRN PO 09/24/17 23:15 (Senokot) 17.2 mg Q12H PRN PO 09/24/17 23:15 (Dulcolax Supp) 10 mg DAILY PRN RECTAL 09/24/17 23:15 (Lactulose Liq) 30 ml DAILY PRN PO 09/24/17 23:15 (Urecholine) 25 mg BID PO 09/25/17 09:00 09/25/17 08:35 (Proscar) 5 mg DAILY PO 09/25/17 09:00 09/25/17 08:36 (Imdur) 30 mg DAILY@07 PO 09/25/17 07:00 09/25/17 06:54 (Keppra) 500 mg BID PO 09/25/17 09:00 09/25/17 08:35 (Mag-Ox) 400 mg DAILY PO 09/25/17 09:00 09/25/17 08:35 (Toprol Xl) 12.5 mg DAILY PO 09/25/17 09:00 (Singulair) 10 mg DAILY PO 09/25/17 09:00 09/25/17 08:35 (Oscal) 500 mg BID PO 09/25/17 09:00 09/25/17 08:35 (Rocaltrol) 0.5 mcg DAILY PO 09/25/17 09:00 09/25/17 08:35 (Duoneb Neb) 1 ampule Q6HR NEB NEB 09/25/17 04:00 09/25/17 15:45 (Duoneb Neb) 1 ampule Q2HR NEB PRN NEB 09/24/17 23:30 (D50w (Vial) Inj) 50 ml UNSCH PRN IV PUSH 09/24/17 23:30 (Glucagon Inj) 1 mg UNSCH PRN OTHER 09/24/17 23:30 (NovoLOG SUPPLEMENTAL SCALE) 1 ACHS SLIDING SCALE SQ 4/25/18 08:00 Azithromycin 500 mg/Sodium Chloride 250 ml @ 250 mls/hr Q24H IV 09/25/17 01:00 09/25/17 01:25 Ceftriaxone Sodium 1000 mg/ Sodium Chloride 100 ml @ 200 mls/hr Q24H IV 09/25/17 00:00 09/25/17 00:40 (Bumetanide) 1 mg DAILY PO 09/25/17 09:00 Sodium Chloride 1,000 ml @ 42 mls/hr [id number] PRN IV 09/25/17 09:45 Family History [place] Social History Lives locally with his No EtOH, tobacco use, nor illicits (Sarah Carbajal) Physical Exam Vital Signs Vital Signs Date Time Temp Pulse Resp B/P (MAP) Pulse Ox O2 Delivery O2 Flow Rate FiO2 09/25/17 12:00 98.2 102 20 97/52 (67) 97 09/25/17 08:49 Nasal Cannula 2.00 09/25/17 08:09 98 Nasal Cannula 2.00 09/25/17 08:00 97.9 103 20 99/55 (70) 99 09/25/17 08:00 87 09/25/17 04:06 93 09/25/17 04:00 97.5 97 16 105/56 (72) 99 09/25/17 01:19 74 09/25/17 01:04 Nasal Cannula 2.00 09/25/17 00:27 97.3 82 18 101/58 (72) 99 09/24/17 23:45 97 Nasal Cannula 1.50 09/24/17 20:53 16 99 Room Air 2.00 Physical Exam GENERAL: Sitting up in chair. NAD SKIN: Warm and dry. HEAD: Atraumatic. Normocephalic. EYES: Pupils equal and round. No scleral icterus. No injection or drainage. ENT: No nasal bleeding or discharge. Mucous membranes pink and moist. NECK: Trachea midline. No JVD. CARDIOVASCULAR: Irregularly irregular RESPIRATORY: No accessory muscle use. Diminished breath sounds on the left, otherwise CTA GASTROINTESTINAL: Abdomen soft, non-tender, nondistended. Hepatic and splenic margins not palpable. MUSCULOSKELETAL: Extremities without clubbing, cyanosis, or edema. No obvious deformities. NEUROLOGICAL: Awake and alert. Normal speech. PSYCHIATRIC: Appropriate mood and affect; insight and judgment normal. Laboratory Laboratory Tests Test 09/24/17 16:47 09/25/17 01:14 Urine Color LIGHT-YELLOW Urine Turbidity CLEAR Urine pH 5.5 Urine Specific Isabella 1.010 Urine Protein TRACE Urine Glucose (UA) 150 Urine Ketones NEG Urine Occult Blood NEG Urine Nitrite NEG Urine Bilirubin NEG Urine Urobilinogen LESS THAN 2.0 Urine Leukocyte Esterase SMALL Urine RBC 1 Urine WBC 3 Urine Squamous Epithelial Cells <1 Urine Hyaline Casts 7 Microscopic Urinalysis Comment CULT NOT INDICATED White Blood Count 14.2 Red Blood Count 4.26 Hemoglobin 12.5 Hematocrit 37.7 Mean Corpuscular Volume 88.5 Mean Corpuscular Hemoglobin 29.3 Mean Corpuscular Hemoglobin Concent 33.1 Red Cell Distribution Width 14.8 Platelet Count 103 Mean Platelet Volume 9.4 Neutrophils (%) (Auto) 76.1 Lymphocytes (%) (Auto) 8.3 Monocytes (%) (Auto) 15.3 Eosinophils (%) (Auto) 0.2 Basophils (%) (Auto) 0.1 Neutrophils # (Auto) 10.8 Lymphocytes # (Auto) 1.2 Monocytes # (Auto) 2.2 Eosinophils # (Auto) 0.0 Basophils # (Auto) 0.0 CBC Comment AUTO DIFF Differential Comment AUTO DIFF CONFIRMED Platelet Estimate LOW Platelet Morphology Comment NORMAL Ovalocytes 1+ Blood Urea Nitrogen 25 Creatinine 1.42 Random Glucose 162 Calcium Level 8.0 Sodium Level 141 Potassium Level 4.0 Chloride Level 103 Carbon Dioxide Level 29.8 Anion Gap 8 Estimat Glomerular Filtration Rate 48 Lactic Acid Level 1.2 Date/Time Source Procedure Growth Status 09/24/17 16:16 Blood Peripheral Aerobic Blood Culture - Preliminary NO GROWTH IN 1 DAY Resulted 09/24/17 16:16 Blood Peripheral Anaerobic Blood Culture - Preliminary NO GROWTH IN 1 DAY Resulted 09/25/17 15:40 Urine Clean Catch Urine Culture Pending Received (Sarah Carbajal) Result Diagram: 09/25/17 0114 09/25/17 0114 Imaging Last Impressions Head CT 09/24/17 1609 Signed Impressions: Service Date/Time: Sunday, September 24, 2017 18:16 - CONCLUSION: No acute intracranial abnormality or significant change. Mendez Ritter MD Chest X-Ray 09/24/17 1609 Signed Impressions: Service Date/Time: Sunday, September 24, 2017 17:00 - CONCLUSION: Appearance is very similar to prior chest x-ray of 12/05/16. Left pleural effusion and left lower lobe consolidation versus atelectasis again seen. Daniel Ny MD Abdomen/Pelvis CT 09/24/17 0000 Signed Impressions: Service Date/Time: Sunday, September 24, 2017 19:30 - CONCLUSION: 1. Heterogeneously enhancing spleen typical of patchy infarcts, probably acute or subacute. Diffuse atherosclerotic disease noted. 2. Trace ascites. Also mild body wall edema/anasarca. 3. Left greater than right pleural effusions at the visualized lung bases. 4. No perceptible acute abnormality of the transplant kidney in the right iliac fossa. Mendez Ritter MD (Sarah Carbajal) Assessment and Plan Problem List: (1) Acute on chronic renal insufficiency ICD Codes: N28.9 - Disorder of kidney and ureter, unspecified; N18.9 - Chronic kidney disease, unspecified Plan: Baseline SCr 0.8-1.1 Acute decline likely related to volume depletion in setting of poor oral intake as well as infection. He is being treated for potential PNA with Zithromax and Rocephin. BCx neg x24h , UCx pending. Hold diuretics for the present and encouraged po hydration. Will defer IVF at the present as he is back to his baseline mentation and eating and drinking properly at this point. Noted L pleural effusion that seems to be stable as compared to CXR from December 2016. Will defer to primary if this needs to be evaluated further. Reviewed CT scan that showed no hydronephrosis or any issues regarding his transplant. Will follow. Medications should be adjusted for the patient's renal decline. Avoid nephrotoxic medications such as iodinated contrast dyes and NSAIDs. (2) Kidney transplant status, living related donor ICD Codes: Z94.0 - Kidney transplant status Status: Acute Plan: On no immunosuppressives since 2008 No signs of rejection (3) Pneumonia ICD Codes: J18.9 - Pneumonia, unspecified organism Plan: On Zith and Rocephin as per primary team (4) Cardiomyopathy ICD Codes: I42.9 - Cardiomyopathy, unspecified Status: Acute Plan: Echo November 2016 showing EF of 35-40% No signs of volume overload at the present. Continue po hydration with close monitoring. (5) Hypoparathyroidism, unspecified ICD Codes: E20.9 - Hypoparathyroidism, unspecified Status: Acute Plan: Continue on Rocaltrol as per outpatient regimen Continue on po Calcium as before. Goal calcium is to be low-normal to avoid significant hypercalciuria which can cause nephrocalcinosis (6) DM2 (diabetes mellitus, type 2) ICD Codes: E11.9 - Type 2 diabetes mellitus without complications Status: Chronic Plan: Mgmt as per primary (Sarah Carbajal) Assessment and Plan The exam, history, and the medical decision-making described in the above note were completed with the assistance of the PA-C. I reviewed and agree with the findings presented. I attest that I had a [id number] encounter with the patient on the same day, and personally performed and documented my assessment and findings in the medical record. (Lizz Pro MD) Sarah Carbajal Sep 25, 2017 17:10 Lizz Pro MD Sep 25, 2017 17:19
[2017-09-25 19:07] LABS: PHOSPHORUS 3.1 MG/DL (2.5-4.9)
[2017-09-26] VITALS (13 sets, daily range): BP systolic 96–135; BP diastolic 56–69; PULSE 86–118; RESP 16–20; TEMP 97.6–99.4; O2SAT 92–100
[2017-09-26] MEDS: cefTRIAXone INJ 1,000 MG in SODIUM CHLORIDE 0.9% INJ 100 ML IV SCH (00:07)
[2017-09-26] MEDS: AZITHROMYCIN INJ 500 MG in SODIUM CHLOR 0.9% 250 ML INJ 250 ML IV SCH (00:07)
[2017-09-26] MEDS: RESP: ALBUTEROL 2.5 MG/IPRATROPIUM 0.5 MG NEB (SCH) NEB ×4 (03:40→22:14)
[2017-09-26 04:57] LABS: BASOPHIL % 0.3 % (0.0-2.0); EOSINOPHIL % 0.4 % (0.0-4.0); HEMATOCRIT 35.5 % (39.0-51.0); HEMOGLOBIN 11.7 GM/DL (13.0-17.0); LYMPH % 5.3 % (9.0-44.0); LYMPHOCYTE # 0.6 TH/MM3 (1.0-4.8); MEAN CELL VOLUME 88.3 FL (80.0-100.0); MEAN CORPUSCULAR HEMOGLOBIN 29.1 PG (27.0-34.0); MEAN PLATELET VOLUME 10.4 FL (7.0-11.0); MONO % 15.5 % (0.0-8.0); MONOCYTE # 1.8 TH/MM3 (0-0.9); NEUT % 78.5 % (16.0-70.0); PLATELET COUNT 121 TH/MM3 (150-450); RED BLOOD COUNT 4.02 MIL/MM3 (4.50-5.90); RED CELL DISTRIBUTION WIDTH 14.9 % (11.6-17.2); WHITE BLOOD COUNT 11.4 TH/MM3 (4.0-11.0)
[2017-09-26 05:16] LABS: BICARBONATE 29.5 MEQ/L (21.0-32.0); CALCIUM 7.8 MG/DL (8.5-10.1); CREATININE 1.76 MG/DL (0.60-1.30)
--- NOTE | 2017-09-26 07:10 | RADRPT ---
EXAM DATE/TIME: 09/26/2017 06:23 [facility] COMPARISON: CHEST SINGLE AP, September 24, 2017, 17:00. INDICATIONS : Cough, short of breath MEDICAL HISTORY : Hypertension. Renal failure, chronic. Cardiovascular disease. diabetic, seizures SURGICAL HISTORY : CABG. Coronary artery stent. Craniotomy. renal transplant ENCOUNTER: Subsequent ACUITY: 1 week PAIN SCORE: Non-responsive. LOCATION: Bilateral chest FINDINGS: Portable AP view of the chest demonstrates a normal-sized cardiac silhouette with calcification of th e aorta in this patient post median sternotomy. EKG lines overlie the patient. Lungs are underinflate d. There is a stable small left basilar pleural-parenchymal opacity. Atelectasis is present at the ri ght lung base. No pneumothorax is present. Bones demonstrate no acute finding. CONCLUSION: Stable chest x-ray with a small left pleural effusion with associated volume loss and/or airspace con solidation at the left lung base. Mendez Peters MD on September 26, 2017 at 7:07 Board Certified Radiologist. This report was verified electronically.
[2017-09-26] MEDS: ISOSORBIDE MONONITRATE 30 MG CR TAB (IMDUR) PO SCH (07:20)
[2017-09-26] MEDS: MAGNESIUM OXIDE 400 MG TAB PO SCH (08:54)
[2017-09-26] MEDS: CALCIUM CARBONATE 1.25 GM (CA 500 MG) TAB PO SCH ×2 (08:55→21:02)
[2017-09-26] MEDS: FINASTERIDE 5 MG TAB PO SCH (08:55)
[2017-09-26] MEDS: CALCITRIOL 0.25 MCG CAP PO SCH (08:55)
[2017-09-26] MEDS: MONTELUKAST SODIUM 10 MG TAB PO SCH (08:55)
[2017-09-26] MEDS: INSULIN ASPART SUPPLEMENTAL SCALE SQ SCH ×4 (08:56→21:03)
[2017-09-26] MEDS: levETIRAcetam 500 MG TAB PO SCH ×2 (08:56→21:02)
[2017-09-26] MEDS: BETHANECHOL CHL 25 MG TAB PO SCH ×2 (08:56→21:02)
[2017-09-26] MEDS: METOPROLOL SUCCINATE 25 MG EXTENDED RELEASE TAB PO SCH ×2 (08:57→18:25)
[2017-09-26] MEDS ORDERED: BUMETANIDE 1 MG TAB PO SCH (09:00)
[2017-09-26] MEDS: SODIUM CHLORIDE 0.9% FLUSH 10 ML FLUSH IV FLUSH SCH ×2 (09:04→21:02)
--- NOTE | 2017-09-26 11:19 | HHI.PR ---
Subjective Remarks F/U sepsis and dehydration. Patient states he continues to get better out of bed to chair. He is eating and drinking seen with family. Toprol has been discontinued because of borderline low BP. Family inquiring about thoracentesis Objective Vitals Vital Signs Date Time Temp Pulse Resp B/P (MAP) Pulse Ox O2 Delivery O2 Flow Rate FiO2 09/26/17 08:00 98.2 105 18 104/56 (72) 96 09/26/17 04:40 98.5 118 16 102/57 (72) 97 09/26/17 04:00 115 09/26/17 03:42 95 09/26/17 00:00 110 09/26/17 00:00 98.4 108 18 99/62 (74) 98 09/25/17 20:33 95 09/25/17 20:15 96 09/25/17 20:15 97 Room Air 09/25/17 20:00 98.3 108 20 128/67 (87) 97 09/25/17 16:00 83 09/25/17 16:00 98.4 101 20 111/55 (73) 96 09/25/17 12:00 101 09/25/17 12:00 98.2 102 20 97/52 (67) 97 I/O 09/25/17 09/25/17 09/25/17 09/26/17 09/26/17 09/26/17 07:00 15:00 23:00 07:00 15:00 23:00 Intake Total 425 ml 840 ml Output Total 600 ml Balance 425 ml 840 ml -600 ml Intake Oral 75 ml 840 ml IV Total 350 ml Output Urine Total 600 ml # Voids 1 3 # Bowel Movements 1 2 Result Diagram: 09/26/17 0345 09/26/17 0345 Imaging Last Impressions Chest X-Ray 09/26/17 0600 Signed Impressions: Service Date/Time: September 06:23 - CONCLUSION: Stable chest x-ray with a small left pleural effusion with associated volume loss and/or airspace consolidation at the left lung base. Mendez Peters MD Head CT 09/24/17 1605 Signed Impressions: Service Date/Time: Sunday, September 24, 2017 18:16 - CONCLUSION: No acute intracranial abnormality or significant change. Mendez Ritter MD Abdomen/Pelvis CT 09/24/17 0000 Signed Impressions: Service Date/Time: Sunday, September 24, 2017 19:30 - CONCLUSION: 1. Heterogeneously enhancing spleen typical of patchy infarcts, probably acute or subacute. Diffuse atherosclerotic disease noted. 2. Trace ascites. Also mild body wall edema/anasarca. 3. Left greater than right pleural effusions at the visualized lung bases. 4. No perceptible acute abnormality of the transplant kidney in the right iliac fossa. Mendez Ritter MD Objective Remarks GENERAL: male in no distress SKIN: No rashes, ecchymoses or lesions. Cool and dry. CARDIOVASCULAR: Regular rate and rhythm without murmurs, gallops, or rubs. RESPIRATORY: Decreased breath sounds bilaterally GASTROINTESTINAL: Abdomen soft, non-tender, nondistended. No guarding. MUSCULOSKELETAL: Extremities without clubbing, cyanosis, or edema. No joint tenderness, effusion, or edema noted. No calf tenderness. NEUROLOGICAL: Alert and awake. Cranial nerves II through XII intact. Motor and sensory grossly within normal limits. Normal speech. A/P Problem List: (1) Generalized weakness ICD Code: R53.1 - Weakness Status: Acute (2) Altered mental status ICD Code: R41.82 - Altered mental status, unspecified Status: Acute Assessment and Plan 1. Encephalopathy, multifactorial from dehydration and possible sepsis with history of dementia. He is improved back to baseline per . Cannot exclude underlying pneumonia patient with cough continue IV Rocephin and Zithromax follow-up cultures. Ultrasound-guided thoracentesis follow-up studies 2. CHF. Stable. CHF education, I/O and monitor weight 3. Diabetes mellitus. Stable continue sliding-scale 4. Atrial fibrillation. Stable continue Toprol Patient not anticoagulated secondary to brain bleed 5. CAD. Denies chest pain and shortness of breath. Troponin elevation secondary to dehydration, acute kidney injury and possible sepsis. Does not want cardiac catheterization because of history of kidney transplant. Continue medical management 6. Acute kidney injury secondary to dehydration with history of renal transplant. Worse but nonoliguric. Avoid nephrotoxins. Further management per nephrology Avoid aggressive IV fluid hydration secondary to CHF and anasarca 7. Probable acute or subacute splenic infarct. Denies abdominal pain. Check echocardiogram FEN Heart healthy diabetic diet. Gentle IV hydration if oral intake less than 50% Electrolytes: Monitor and replete as needed Holding pharmacologic anticoagulation secondary to history of brain bleed and thrombocytopenia Discharge Planning Possible discharge in 1-2 days Problem Qualifiers (1) Altered mental status: Qualified Codes: R41.82 - Altered mental status, unspecified Jong Tariq MD Sep 26, 2017 11:19
--- NOTE | 2017-09-26 16:25 | RADRPT ---
EXAM DATE/TIME: 09/26/2017 16:13 [facility] COMPARISON: No previous studies available for comparison. INDICATIONS : Post thoracentesis MEDICAL HISTORY : Hypertension. Renal failure, chronic. Cardiovascular disease. diabetic, seizures SURGICAL HISTORY : CABG. Coronary artery stent. Craniotomy. renal transplant ENCOUNTER: Subsequent ACUITY: 1 week PAIN SCORE: 0/10 LOCATION: chest FINDINGS: No pneumothorax is noted status post left thoracentesis. No significant residual left pleural effusio n is noted. Median sternotomy wires are noted status post cardiac surgery. The heart is prominent in size. No focal infiltrate is noted. Degenerative changes and scoliosis of the thoracic spine are note d. CONCLUSION: 1. No pneumothorax status post left thoracentesis. 2. Cardiomegaly. 3. Degenerative changes and scoliosis of the thoracic spine. Dario Downs MD on September 26, 2017 at 16:21 Board Certified Radiologist. This report was verified electronically.
[2017-09-26] MEDS ORDERED: LIDOCAINE HCL 1% 20 ML VIAL ONE (16:26)
--- NOTE | 2017-09-26 16:36 | RADRPT ---
EXAM DATE/TIME: 09/26/2017 14:36 [facility] COMPARISON: No previous studies available for comparison. INDICATIONS : Left pleural effusion. MEDICAL HISTORY : Stroke. Hypertension. Seizures. Coronary artery disease. Atrial fibrillation. Renal failure. Urinary tract infection. Kidney stones. Arthritis. GOUT. Diabetes. Skin cancer. SURGICAL HISTORY : CABG Bilateral cataract surgery. Cardiac catheterization. Penile implant. Parathyroidectomy. Renal transplant. ENCOUNTER: Initial ACUITY: 1 day PAIN SCORE: 2/10 LOCATION: Left chest FLUID: Total volume of 1300 cc of clear, yellow fluid was removed. Fluid was sent to lab for ordered studies. TECHNIQUE: 1. Ultrasound guidance for thoracentesis. 2. Thoracentesis. The risks, benefits, and alternatives to ultrasound guided thoracentesis were explained to the patien t in lay simple terms, including the risk of bleeding and infection. Written and verbal informed con sent was obtained. Appropriate area for thoracentesis was marked under ultrasound guidance with the patient in the uprig ht position. Overlying skin was prepped and draped in the usual sterile fashion and with local anest hetic, a dermatotomy was made with an 11 blade scalpel. A 6 [place] thoracentesis catheter was placed in the pleural space and fluid was removed. Catheter was then removed and a sterile dressing applie d. There were no immediate complications. The patient tolerated the procedure well and the left the ultrasound suite in stable condition. Chest radiograph is to be obtained. CONCLUSION: Uncomplicated ultrasound guided thoracentesis. Dario Downs MD on September 26, 2017 at 16:33 Board Certified Radiologist. This report was verified electronically.
--- NOTE | 2017-09-26 17:07 | HHI.PR ---
Subjective Remarks Patient not in room off the floor having a procedure. Suspect acute renal insufficiency related to a combination of dehydration as well as iodine contrast injury. Repeat renal indices in a.m. Patient will be seen tomorrow. Objective Vital Signs Date Time Temp Pulse Resp B/P (MAP) Pulse Ox O2 Delivery O2 Flow Rate FiO2 09/26/17 16:40 97 18 109/60 (76) 94 09/26/17 16:25 98.9 111 20 96/63 (74) 94 09/26/17 16:00 98.4 111 18 125/60 (81) 97 09/26/17 15:44 98.8 86 20 105/66 (79) 96 09/26/17 12:00 118 09/26/17 12:00 97.6 114 18 135/69 (91) 100 09/26/17 08:00 98.2 105 18 104/56 (72) 96 09/26/17 08:00 115 09/26/17 04:40 98.5 118 16 102/57 (72) 97 09/26/17 04:00 115 09/26/17 03:42 95 09/26/17 00:00 110 09/26/17 00:00 98.4 108 18 99/62 (74) 98 09/25/17 20:33 95 09/25/17 20:15 96 09/25/17 20:15 97 Room Air 09/25/17 20:00 98.3 108 20 128/67 (87) 97 I/O 09/25/17 09/25/17 09/25/17 09/26/17 09/26/17 09/26/17 07:00 15:00 23:00 07:00 15:00 23:00 Intake Total 425 ml 840 ml Output Total 600 ml Balance 425 ml 840 ml -600 ml Intake Oral 75 ml 840 ml IV Total 350 ml Output Urine Total 600 ml # Voids 1 3 # Bowel Movements 1 2 Result Diagram: 09/26/17 0345 09/26/17 0345 Lizz Pro MD Sep 26, 2017 17:07
[2017-09-26 17:54] LABS: TOTAL PROTEIN,PLEURAL FLUID 2.5 GM/DL
[2017-09-26 19:17] LABS: PLEURAL FLUID HISTIOCYTES 8 %; PLEURAL FLUID LYMPHS 48 %; PLEURAL FLUID MONOS 27 %; PLEURAL FLUID POLYS (SEGS) 17 %
[2017-09-26 19:27] LABS: PLEURAL FLUID RBC 319 /MM3 (0-0); PLEURAL FLUID WBC 102 /MM3 (0-10)
[2017-09-27] VITALS (10 sets, daily range): BP systolic 89–108; BP diastolic 52–62; PULSE 81–118; RESP 16–20; TEMP 97.5–98.9; O2SAT 92–97
[2017-09-27] MEDS: cefTRIAXone INJ 1,000 MG in SODIUM CHLORIDE 0.9% INJ 100 ML IV SCH (00:18)
[2017-09-27] MEDS: AZITHROMYCIN INJ 500 MG in SODIUM CHLOR 0.9% 250 ML INJ 250 ML IV SCH (00:18)
[2017-09-27] MEDS: RESP: ALBUTEROL 2.5 MG/IPRATROPIUM 0.5 MG NEB (SCH) NEB ×2 (03:21→09:30)
[2017-09-27 05:45] LABS: BICARBONATE 26.7 MEQ/L (21.0-32.0); CALCIUM 8.3 MG/DL (8.5-10.1); CREATININE 1.49 MG/DL (0.60-1.30)
[2017-09-27] MEDS: ISOSORBIDE MONONITRATE 30 MG CR TAB (IMDUR) PO SCH (06:46)
[2017-09-27] MEDS: levETIRAcetam 500 MG TAB PO SCH ×2 (08:31→21:15)
[2017-09-27] MEDS: CALCIUM CARBONATE 1.25 GM (CA 500 MG) TAB PO SCH ×2 (08:31→21:15)
[2017-09-27] MEDS: FINASTERIDE 5 MG TAB PO SCH (08:31)
[2017-09-27] MEDS: MAGNESIUM OXIDE 400 MG TAB PO SCH (08:31)
[2017-09-27] MEDS: INSULIN ASPART SUPPLEMENTAL SCALE SQ SCH ×4 (08:33→21:00)
[2017-09-27] MEDS: BETHANECHOL CHL 25 MG TAB PO SCH ×2 (08:34→21:15)
[2017-09-27] MEDS: CALCITRIOL 0.25 MCG CAP PO SCH (08:34)
[2017-09-27] MEDS: SODIUM CHLORIDE 0.9% FLUSH 10 ML FLUSH IV FLUSH SCH ×2 (08:35→21:15)
[2017-09-27] MEDS: MONTELUKAST SODIUM 10 MG TAB PO SCH (09:00)
--- NOTE | 2017-09-27 09:31 | PD ---
Physical Exam Narrative GENERAL: 77-year-old male who appears ill SKIN: Focused skin assessment warm/dry. HEAD: Atraumatic. Normocephalic. EYES: No scleral icterus. No injection or drainage. ENT: No nasal bleeding or discharge. Mucous membranes pink and moist. NECK: Trachea midline. CARDIOVASCULAR: Regular rate and rhythm. RESPIRATORY: No accessory muscle use. No increased effort GASTROINTESTINAL: Abdomen mild tenderness diffusely, nondistended. MUSCULOSKELETAL: No obvious deformities. No clubbing. No cyanosis. NEUROLOGICAL: Awake. Moves extremities. Normal speech. Data Data Last Documented VS Vital Signs Date Time Temp Pulse Resp B/P (MAP) Pulse Ox O2 Delivery O2 Flow Rate FiO2 09/24/17 20:53 16 99 Room Air 2.00 09/24/17 16:13 99.0 83 94/55 (68) Orders Orders Electrocardiogram (09/24/17 16:09) Complete Blood Count With Diff (09/24/17 16:09) Comprehensive Metabolic Panel (09/24/17 16:09) Ckmb (Isoenzyme) Profile (09/24/17 16:09) Troponin I (09/24/17 16:09) Prothrombin Time / Inr (Pt) (09/24/17 16:09) Act Partial Throm Time (Ptt) (09/24/17 16:09) Blood Culture (09/24/17 16:09) Lipase (09/24/17 16:09) Urinalysis - C+S If Indicated (09/24/17 16:09) Cath For Specimen (09/24/17 16:09) Thyroid Stimulating Hormone (09/24/17 16:09) Chest, Single Ap (09/24/17 16:09) Ct Brain W/O Iv Contrast(Rout) (09/24/17 16:09) Iv Access Insert/Monitor (09/24/17 16:09) Ecg Monitoring (09/24/17 16:09) Oximetry (09/24/17 16:09) Sodium Chlor 0.9% 1000 Ml Inj (Ns 1000 M (09/24/17 16:09) Lactic Acid (09/24/17 17:25) Sodium Chlor 0.9% 250 Ml Inj (Ns 250 Ml (09/24/17 18:30) Ct Abd/Pel W Iv Contrast(Rout) (09/24/17 ) Piperacil-Tazo 4.5 Gm Premix (Zosyn 4.5 (09/24/17 18:45) Iodixanol 320 Inj (Rad Ct) (Visipaque 32 (09/24/17 19:35) Admit Order (Ed Use Only) (09/24/17 20:58) Labs Laboratory Tests Test 09/24/17 15:37 09/24/17 16:16 09/24/17 16:47 Lactic Acid Level 2.7 mmol/L White Blood Count 17.8 TH/MM3 Red Blood Count 4.10 MIL/MM3 Hemoglobin 11.8 GM/DL Hematocrit 36.2 % Mean Corpuscular Volume 88.3 FL Mean Corpuscular Hemoglobin 28.8 PG Mean Corpuscular Hemoglobin Concent 32.6 % Red Cell Distribution Width 14.7 % Platelet Count 129 TH/MM3 Mean Platelet Volume 9.8 FL Neutrophils (%) (Auto) 83.9 % Lymphocytes (%) (Auto) 3.2 % Monocytes (%) (Auto) 12.5 % Eosinophils (%) (Auto) 0.1 % Basophils (%) (Auto) 0.3 % Neutrophils # (Auto) 14.9 TH/MM3 Lymphocytes # (Auto) 0.6 TH/MM3 Monocytes # (Auto) 2.2 TH/MM3 Eosinophils # (Auto) 0.0 TH/MM3 Basophils # (Auto) 0.1 TH/MM3 CBC Comment AUTO DIFF Differential Total Cells Counted 100 Neutrophils % (Manual) 87 % Band Neutrophils % 2 % Lymphocytes % 3 % Monocytes % 8 % Neutrophils # (Manual) 15.8 TH/MM3 Differential Comment FINAL DIFF MANUAL Toxic Granulation 1+ Platelet Estimate LOW Platelet Morphology Comment NORMAL Prothrombin Time 15.6 SEC Prothromb Time International Ratio 1.5 RATIO Activated Partial Thromboplast Time 36.0 SEC Blood Urea Nitrogen 25 MG/DL Creatinine 1.69 MG/DL Random Glucose 272 MG/DL Total Protein 6.0 GM/DL Albumin 2.8 GM/DL Calcium Level 7.8 MG/DL Alkaline Phosphatase 93 U/L Aspartate Amino Transf (AST/SGOT) 25 U/L Alanine Aminotransferase (ALT/SGPT) 13 U/L Total Bilirubin 1.3 MG/DL Sodium Level 140 MEQ/L Potassium Level 3.9 MEQ/L Chloride Level 101 MEQ/L Carbon Dioxide Level 29.5 MEQ/L Anion Gap 10 MEQ/L Estimat Glomerular Filtration Rate 40 ML/MIN Total Creatine Kinase 23 U/L Troponin I 0.22 NG/ML Lipase 45 U/L Thyroid Stimulating Hormone 3rd Gen 0.885 uIU/ML Urine Color LIGHT-YELLOW Urine Turbidity CLEAR Urine pH 5.5 Urine Specific [place] 1.010 Urine Protein TRACE mg/dL Urine Glucose (UA) 150 mg/dL Urine Ketones NEG mg/dL Urine Occult Blood NEG Urine Nitrite NEG Urine Bilirubin NEG Urine Urobilinogen LESS THAN 2.0 MG/DL Urine Leukocyte Esterase SMALL Urine RBC 1 /hpf Urine WBC 3 /hpf Urine Squamous Epithelial Cells <1 /hpf Urine Hyaline Casts 7 /lpf Microscopic Urinalysis Comment CULT NOT INDICATED MDM Supervised Visit with KHADIJAH: Yes Interpretation(s) CBC & BMP Diagram 09/24/17 16:16 Total Protein 6.0 L, Albumin 2.8 L, Calcium Level 7.8 L, Alkaline Phosphatase 93 , Aspartate Amino Transf (AST/SGOT) 25, Alanine Aminotransferase (ALT/SGPT) 13, Total Bilirubin 1.3 H Last [address] 09/24/17 1609 Signed Impressions: Service Date/Time: Sunday, September 24, 2017 18:16 - CONCLUSION: No acute intracranial abnormality or significant change. Mendez Ritter MD Chest X-Ray 09/24/17 1609 Signed Impressions: Service Date/Time: Sunday, September 24, 2017 17:00 - CONCLUSION: Appearance is very similar to prior chest x-ray of 12/05/16. Left pleural effusion and left lower lobe consolidation versus atelectasis again seen. Daniel Ny MD Abdomen/Pelvis CT 09/24/17 0000 Signed Impressions: Service Date/Time: Sunday, September 24, 2017 19:30 - CONCLUSION: 1. Heterogeneously enhancing spleen typical of patchy infarcts, probably acute or subacute. Diffuse atherosclerotic disease noted. 2. Trace ascites. Also mild body wall edema/anasarca. 3. Left greater than right pleural effusions at the visualized lung bases. 4. No perceptible acute abnormality of the transplant kidney in the right iliac fossa. Mendez Ritter MD Narrative Course I, Dr. kang, have reviewed the advance practice practitioner's documentation and am in agreement, met with the patient face to face, made the diagnosis, and the medical decision making was done by me. *My assessment and Findings: 77 y/o male presents with altered mental status. Patient has leukocytosis and elevated lactate. Patient has tenderness on exam. Will add in CT scan of the abdomen and dose with Zosyn initially while awaiting workup. IV fluids with be held given has fluid on x-ray. Daughters updated and helps supplement history and agree to admission. Sepsis Criteria SIRS Criteria (2 or more): Heart rate over 90, WBC > 55922, < 4000 or > 10% bands Sepsis Criteria (SIRS+source): Infect source susp/known Severe Sepsis (+one): Lactate >2 Criteria Outcome: Meets severe sepsis criteria Diagnosis Primary Impression: Altered mental status Qualified Codes: R41.82 - Altered mental status, unspecified Additional Impressions: Sepsis Qualified Codes: A41.9 - Sepsis, unspecified organism Troponin level elevated DEJA (acute kidney injury) Rae Kang MD Sep 27, 2017 09:31
--- NOTE | 2017-09-27 11:08 | HHI.NPPN ---
Subjective History of Present Illness The patient is a 77 yo [place] male with PMHx of kidney transplant in 1998 (on no immunosuppressives since 1998), hypoparathyroidism, cardiomyopathy, DM, HTN, BPH , CAD, who presented to this facility via [facility] on 09/23 with AMS. His , who is present during examination, states that for 2 days prior to his admission, he was lethargic, not eating nor drinking well, and was overall not himself. States that he has had 2 urinary tract infections in the past month treated by his GP initially with Ampicillin and a second course with Cipro and seemed to be recovering well up until about 4 days ago. Denies any NVD. No cough, no SOB , no fever. CXR shows some consolidation with moderate to large left pleural effusion. No CHF. Abdominal CT was overall negative. Admitting SCr was 1.69 that improved to 1.42 at consult. Outpatient labs in Jul showed SCr of 1.4 with estimated GFR at 42. At that visit, his Bumex was decreased to 1mg QOD (from QD) and SCr improved to 1.1 on . Baseline SCr 0.8-1.1. Is a LDRT recipient in 1998 and has not been on any immunosuppressives since 2008. At the present, the says he is back to his baseline. The patient himself offers no specific complaints. Interval History Pt back to baseline confirms that he is eating and drinking well s/p thoracentesis yesterday if 1500mL from L lung. Appears transudate, but Cx pending. concerned about potential urinary retention as he has had hx if this in the past Objective Data Data Vital Signs Date Time Temp Pulse Resp B/P (MAP) Pulse Ox O2 Delivery O2 Flow Rate FiO2 09/27/17 09:30 93 21 09/27/17 08:05 98.9 100 16 105/57 (73) 94 09/27/17 04:00 81 09/27/17 04:00 98.8 99 18 107/57 (74) 96 09/27/17 00:00 92 2.00 09/27/17 00:00 97 09/26/17 23:22 99.4 104 18 109/56 (73) 92 09/26/17 20:20 99.2 103 17 104/61 (75) 95 09/26/17 20:15 94 Room Air 4/26/18 20:15 97 09/26/17 16:40 97 18 109/60 (76) 94 09/26/17 16:25 98.9 111 20 96/63 (74) 94 09/26/17 16:00 98.4 111 18 125/60 (81) 97 09/26/17 15:44 98.8 86 20 105/66 (79) 96 09/26/17 12:00 118 09/26/17 12:00 118 09/26/17 12:00 97.6 114 18 135/69 (91) 100 -: 09/26/17 0345 09/27/17 0420 Microbiology 09/26/17 Gram Stain - Final, Resulted 09/26/17 Body Fluid Culture, Resulted Pending Imaging Last Impressions Chest X-Ray 09/26/17 0600 Signed Impressions: Service Date/Time: September 06:23 - CONCLUSION: Stable chest x-ray with a small left pleural effusion with associated volume loss and/or airspace consolidation at the left lung base. Mendez Peters MD Thoracentesis Ultrasound 09/26/17 0000 Signed Impressions: Service Date/Time: September 14:36 - CONCLUSION: Uncomplicated ultrasound guided thoracentesis. Dario Downs MD Head CT 09/24/17 1609 Signed Impressions: Service Date/Time: Sunday, September 24, 2017 18:16 - CONCLUSION: No acute intracranial abnormality or significant change. Mendez Ritter MD Abdomen/Pelvis CT 09/24/17 0000 Signed Impressions: Service Date/Time: Sunday, September 24, 2017 19:30 - CONCLUSION: 1. Heterogeneously enhancing spleen typical of patchy infarcts, probably acute or subacute. Diffuse atherosclerotic disease noted. 2. Trace ascites. Also mild body wall edema/anasarca. 3. Left greater than right pleural effusions at the visualized lung bases. 4. No perceptible acute abnormality of the transplant kidney in the right iliac fossa. Mendez Ritter MD Medication Review Current Medications Medications (Trade) Dose Ordered Sig/Tj Route Start Time Stop Time Status Last Admin (NS Flush) 2 ml UNSCH PRN IV FLUSH 09/24/17 23:15 (NS Flush) 2 ml BID IV FLUSH 09/25/17 09:00 09/27/17 08:35 (Tylenol) 650 mg Q4H PRN PO 09/24/17 23:15 (Zofran Inj) 4 mg Q6H PRN IVP 09/24/17 23:15 09/27/17 02:15 (Narcan Inj) 0.4 mg UNSCH PRN IV PUSH 09/24/17 23:15 (Milk Of Magnesia Liq) 30 ml Q12H PRN PO 09/24/17 23:15 (Senokot) 17.2 mg Q12H PRN PO 09/24/17 23:15 (Dulcolax Supp) 10 mg DAILY PRN RECTAL 09/24/17 23:15 (Lactulose Liq) 30 ml DAILY PRN PO 09/24/17 23:15 (Urecholine) 25 mg BID PO 09/25/17 09:00 09/27/17 08:34 (Proscar) 5 mg DAILY PO 09/25/17 09:00 09/27/17 08:31 (Imdur) 30 mg DAILY@07 PO 09/25/17 07:00 09/27/17 06:46 (Keppra) 500 mg BID PO 09/25/17 09:00 09/27/17 08:31 (Mag-Ox) 400 mg DAILY PO 09/25/17 09:00 09/27/17 08:31 (Toprol Xl) 12.5 mg DAILY PO 09/25/17 09:00 09/26/17 18:25 (Singulair) 10 mg DAILY PO 09/25/17 09:00 09/26/17 08:55 (Oscal) 500 mg BID PO 09/25/17 09:00 09/27/17 08:31 (Rocaltrol) 0.5 mcg DAILY PO 09/25/17 09:00 09/27/17 08:34 (Duoneb Neb) 1 ampule Q6HR NEB NEB 09/25/17 04:00 09/27/17 09:30 (Duoneb Neb) 1 ampule Q2HR NEB PRN NEB 09/24/17 23:30 (D50w (Vial) Inj) 50 ml UNSCH PRN IV PUSH 09/24/17 23:30 (Glucagon Inj) 1 mg UNSCH PRN OTHER 09/24/17 23:30 (NovoLOG SUPPLEMENTAL SCALE) 1 ACHS SLIDING SCALE SQ 09/25/17 08:00 09/27/17 08:33 Azithromycin 500 mg/Sodium Chloride 250 ml @ 250 mls/hr Q24H IV 09/25/17 01:00 09/27/17 00:18 Ceftriaxone Sodium 1000 mg/ Sodium Chloride 100 ml @ 200 mls/hr Q24H IV 09/25/17 00:00 09/27/17 00:18 (Bumetanide) 1 mg DAILY PO 09/25/17 09:00 Future Hold Sodium Chloride 1,000 ml @ 42 mls/hr [id number] PRN IV 09/25/17 09:45 Physical Exam General Appearance: No Acute Distress, Comfortable Neck Neck Exam: Neck Supple, Trachea Midline Pulmonary Resp Exam: Clear Bilaterally, Breath Sounds Equal, Diminished Breath Sounds Cardiology CV Exam: Tachycardia, Murmur Gastrointestinal/Abdomen GI Exam: Soft, Non-Tender Integumentary Skin Exam: Clear, Warm Extremeties Extremities Exam: No Edema Neurologic Neuro Exam: Alert Psychiatric Psych Exam: Appropriate Responses Assessment/Plan Problem List: (1) Acute on chronic renal insufficiency ICD Codes: N28.9 - Disorder of kidney and ureter, unspecified; N18.9 - Chronic kidney disease, unspecified Plan: Baseline SCr 0.8-1.1 Acute decline likely related to volume depletion in setting of poor oral intake as well as infection. Also noted that he received IV contrast on 09/24 which may have contributed to his decline. BCx neg UCx negative s/p thoracentesis yesterday with cx pending. Likely transudate related to CHF? Renal functions improving OK for D/C today from renal standpoint. Advised to hold Bumetanide through the weekend and resume on Saturday QOD dosing. Encourage po intake this weekend To have outpatient labs drawn next Saturday with f/u on 10/09 in our [place] office. Medications should be adjusted for the patient's renal decline. Avoid nephrotoxic medications such as iodinated contrast dyes and NSAIDs. (2) Kidney transplant status, living related donor ICD Codes: Z94.0 - Kidney transplant status Status: Acute Plan: On no immunosuppressives since 2008 No signs of rejection (3) Pneumonia ICD Codes: J18.9 - Pneumonia, unspecified organism Plan: On Zith and Rocephin as per primary team (4) Cardiomyopathy ICD Codes: I42.9 - Cardiomyopathy, unspecified Status: Acute Plan: Echo November 2016 showing EF of 35-40% No signs of volume overload at the present. Continue po hydration with close monitoring. (5) Hypoparathyroidism, unspecified ICD Codes: E20.9 - Hypoparathyroidism, unspecified Status: Acute Plan: Continue on Rocaltrol as per outpatient regimen Continue on po Calcium as before. Goal calcium is to be low-normal to avoid significant hypercalciuria which can cause nephrocalcinosis (6) DM2 (diabetes mellitus, type 2) ICD Codes: E11.9 - Type 2 diabetes mellitus without complications Status: Chronic Plan: Mgmt as per primary (7) Urinary retention ICD Codes: R33.9 - Retention of urine, unspecified Plan: Has known hx of BPH and follow with Dr. Lee as outpatient Managed with Finasteride and Bethanechol. Will have RN do bedside bladder scan on the patient to assess for any urinary retention. If negative, OK to be D/C home with f/u with urologist as outpatient. Sarah Carbajal Sep 27, 2017 11:08
--- NOTE | 2017-09-27 12:58 | HHI.PR ---
Subjective Remarks F/U Fib. Episodes of RVR denies any symptoms refused beta-keya this morning now agreeing. He wants to go home seen with . Discussed with nursing Objective Vitals Vital Signs Date Time Temp Pulse Resp B/P (MAP) Pulse Ox O2 Delivery O2 Flow Rate FiO2 09/27/17 09:30 93 21 09/27/17 08:05 98.9 100 16 105/57 (73) 94 09/27/17 08:00 94 Room Air 09/27/17 04:00 81 09/27/17 04:00 98.8 99 18 107/57 (74) 96 09/27/17 00:00 92 2.00 09/27/17 00:00 97 09/26/17 23:22 99.4 104 18 109/56 (73) 92 09/26/17 20:20 99.2 103 17 104/61 (75) 95 09/26/17 20:15 94 Room Air 09/26/17 20:15 97 09/26/17 16:40 97 18 109/60 (76) 94 09/26/17 16:25 98.9 111 20 96/63 (74) 94 09/26/17 16:00 98.4 111 18 125/60 (81) 97 09/26/17 15:44 98.8 86 20 105/66 (79) 96 I/O 09/26/17 09/26/17 09/26/17 09/27/17 09/27/17 09/27/17 07:00 15:00 23:00 07:00 15:00 23:00 Intake Total 640 ml 0 ml Output Total 600 ml 300 ml Balance -600 ml 640 ml -300 ml Intake Oral 640 ml 0 ml Output Urine Total 600 ml 300 ml Bladder Scan Volume Amount 186 ml # Voids 1 0 # Bowel Movements 2 2 1 Result Diagram: 09/26/17 0345 09/27/17 0420 Imaging Last Impressions Chest X-Ray 09/26/17 0600 Signed Impressions: Service Date/Time: September 06:23 - CONCLUSION: Stable chest x-ray with a small left pleural effusion with associated volume loss and/or airspace consolidation at the left lung base. Mendez Peters MD Thoracentesis Ultrasound 09/26/17 0000 Signed Impressions: Service Date/Time: September 14:36 - CONCLUSION: Uncomplicated ultrasound guided thoracentesis. Dario Downs MD Head CT 09/24/17 1609 Signed Impressions: Service Date/Time: Sunday, September 24, 2017 18:16 - CONCLUSION: No acute intracranial abnormality or significant change. Mendez Ritter MD Abdomen/Pelvis CT 09/24/17 0000 Signed Impressions: Service Date/Time: Sunday, September 24, 2017 19:30 - CONCLUSION: 1. Heterogeneously enhancing spleen typical of patchy infarcts, probably acute or subacute. Diffuse atherosclerotic disease noted. 2. Trace ascites. Also mild body wall edema/anasarca. 3. Left greater than right pleural effusions at the visualized lung bases. 4. No perceptible acute abnormality of the transplant kidney in the right iliac fossa. Mendez Ritter MD Objective Remarks GENERAL: male in no distress SKIN: No rashes, ecchymoses or lesions. Cool and dry. CARDIOVASCULAR: Regular rate and rhythm without murmurs, gallops, or rubs. RESPIRATORY: Decreased breath sounds bilaterally GASTROINTESTINAL: Abdomen soft, non-tender, nondistended. No guarding. MUSCULOSKELETAL: Extremities without clubbing, cyanosis, or edema. No joint tenderness, effusion, or edema noted. No calf tenderness. NEUROLOGICAL: Alert and awake. Cranial nerves II through XII intact. Motor and sensory grossly within normal limits. Normal speech. Procedures Ultrasound-guided thoracentesis of the left pleural effusion A/P Problem List: (1) Generalized weakness ICD Code: R53.1 - Weakness Status: Acute (2) Altered mental status ICD Code: R41.82 - Altered mental status, unspecified Status: Acute Assessment and Plan 1. Encephalopathy, multifactorial from dehydration and possible sepsis with history of dementia. He is improved back to baseline per . Cannot exclude underlying pneumonia patient with cough. He is stable with negative blood cultures will switch to p.o. Ceftin and Zithromax. Pleural fluid studies indicate transudate pending culture 2. CHF. Stable. CHF education, I/O and monitor weight 3. Diabetes mellitus. Stable continue sliding-scale 4. Atrial fibrillation. With episodes of RVR noncompliant with Toprol, he has been counseled as well as the . Not anticoagulated secondary to brain bleed 5. CAD. Denies chest pain and shortness of breath. Troponin elevation secondary to dehydration, acute kidney injury and possible sepsis. Does not want cardiac catheterization because of history of kidney transplant. Continue medical management 6. Acute kidney injury secondary to dehydration with history of renal transplant. Nonoliguric. Improving Avoid nephrotoxins. Further management per nephrology, hold bumex Avoid aggressive IV fluid hydration secondary to CHF and anasarca 7. Probable acute or subacute splenic infarct. Denies abdominal pain. F/u echocardiogram FEN Heart healthy diabetic diet. Gentle IV hydration if oral intake less than 50% Electrolytes: Monitor and replete as needed Holding pharmacologic anticoagulation secondary to history of brain bleed and thrombocytopenia Discharge Planning Possible discharge today Problem Qualifiers (1) Altered mental status: Qualified Codes: R41.82 - Altered mental status, unspecified Jong Tariq MD Sep 27, 2017 12:57
[2017-09-27] MEDS: AZITHROMYCIN 250 MG TAB PO SCH (13:15)
[2017-09-27] MEDS: CEFUROXIME AXETIL 500 MG TAB PO SCH ×2 (13:15→21:15)
[2017-09-27] MEDS ORDERED: AZIT250T3 PO (16:11)
[2017-09-27] MEDS ORDERED: CEFU1TAB20 PO (16:11)
--- NOTE | 2017-09-27 16:19 | HHI.DS ---
Discharge Summary Admission Date Sep 24, 2017 at 21:00 Discharge Date: Sep 28, 2017 Admitting Diagnosis altered mental status, sepsis with unkown source, troponin elevated (1) Generalized weakness ICD Code: R53.1 - Weakness Diagnosis: Principal Status: Acute (2) Altered mental status ICD Code: R41.82 - Altered mental status, unspecified Diagnosis: Principal Status: Acute Procedures Ultrasound-guided thoracentesis of the left pleural effusion Brief History - From Admission 77-year-old male with a past medical history significant for atrial fibrillation (not anticoagulated secondary to history of brain bleed), diabetes mellitus, CHF (last echo showed an EF of 35-40% on 11/20/16) and coronary artery disease presents to the emergency department for evaluation of increased lethargy. The patient was seen with his and daughter bedside who state that the patient has underlying dementia but is usually alert and oriented and mobile with his walker. They report that starting yesterday he became lethargic and had decreased responsiveness to them. They state that his previous medical course has been complicated by 2 urinary tract infections for which he completed a course of ampicillin and Cipro. The patient has not been able to ambulate well with his walker and has been complaining of being more tired than normal. He denies any pain. No fevers/chills. No chest pain or shortness of breath. No abdominal pain. No nausea/vomiting/diarrhea. No lateralizing signs/symptoms. CBC/BMP: 09/26/17 0345 09/27/17 0420 Significant Findings Laboratory Tests Test 09/24/17 16:47 09/25/17 01:14 09/26/17 03:45 09/26/17 16:12 Urine Glucose (UA) 150 mg/dL (NEG) Urine Leukocyte Esterase SMALL (NEG) White Blood Count 14.2 TH/MM3 (4.0-11.0) 11.4 TH/MM3 (4.0-11.0) Red Blood Count 4.26 MIL/MM3 (4.50-5.90) 4.02 MIL/MM3 (4.50-5.90) Hemoglobin 12.5 GM/DL (13.0-17.0) 11.7 GM/DL (13.0-17.0) Hematocrit 37.7 % (39.0-51.0) 35.5 % (39.0-51.0) Platelet Count 103 TH/MM3 (150-450) 121 TH/MM3 (150-450) Neutrophils (%) (Auto) 76.1 % (16.0-70.0) 78.5 % (16.0-70.0) Lymphocytes (%) (Auto) 8.3 % (9.0-44.0) 5.3 % (9.0-44.0) Monocytes (%) (Auto) 15.3 % (0.0-8.0) 15.5 % (0.0-8.0) Neutrophils # (Auto) 10.8 TH/MM3 (1.8-7.7) 9.0 TH/MM3 (1.8-7.7) Monocytes # (Auto) 2.2 TH/MM3 (0-0.9) 1.8 TH/MM3 (0-0.9) Platelet Estimate LOW (NORMAL) Ovalocytes 1+ (NORMAL) Blood Urea Nitrogen 25 MG/DL (7-18) 29 MG/DL (7-18) Creatinine 1.42 MG/DL (0.60-1.30) 1.76 MG/DL (0.60-1.30) Random Glucose 162 MG/DL (74-106) 226 MG/DL (74-106) Calcium Level 8.0 MG/DL (8.5-10.1) 7.8 MG/DL (8.5-10.1) Estimat Glomerular Filtration Rate 48 ML/MIN (>89) 38 ML/MIN (>89) Lymphocytes # (Auto) 0.6 TH/MM3 (1.0-4.8) Pleural Fluid WBC 102 /MM3 (0-10) Pleural Fluid RBC 319 /MM3 (0-0) Test 09/27/17 04:20 Blood Urea Nitrogen 31 MG/DL (7-18) Creatinine 1.49 MG/DL (0.60-1.30) Random Glucose 292 MG/DL (74-106) Calcium Level 8.3 MG/DL (8.5-10.1) Estimat Glomerular Filtration Rate 46 ML/MIN (>89) Imaging Last Impressions Chest X-Ray 09/26/17 0600 Signed Impressions: Service Date/Time: September 06:23 - CONCLUSION: Stable chest x-ray with a small left pleural effusion with associated volume loss and/or airspace consolidation at the left lung base. Mendez Peters MD Thoracentesis Ultrasound 09/26/17 0000 Signed Impressions: Service Date/Time: September 14:36 - CONCLUSION: Uncomplicated ultrasound guided thoracentesis. Dario Downs MD Head CT 09/24/17 1609 Signed Impressions: Service Date/Time: Sunday, September 24, 2017 18:16 - CONCLUSION: No acute intracranial abnormality or significant change. Mendez Ritter MD Abdomen/Pelvis CT 09/24/17 0000 Signed Impressions: Service Date/Time: Sunday, September 24, 2017 19:30 - CONCLUSION: 1. Heterogeneously enhancing spleen typical of patchy infarcts, probably acute or subacute. Diffuse atherosclerotic disease noted. 2. Trace ascites. Also mild body wall edema/anasarca. 3. Left greater than right pleural effusions at the visualized lung bases. 4. No perceptible acute abnormality of the transplant kidney in the right iliac fossa. Mendez Ritter MD PE at Discharge GENERAL: male in no distress SKIN: No rashes, ecchymoses or lesions. Cool and dry. CARDIOVASCULAR: Regular rate and rhythm without murmurs, gallops, or rubs. RESPIRATORY: Decreased breath sounds bilaterally GASTROINTESTINAL: Abdomen soft, non-tender, nondistended. No guarding. MUSCULOSKELETAL: Extremities without clubbing, cyanosis, or edema. No joint tenderness, effusion, or edema noted. No calf tenderness. NEUROLOGICAL: Alert and awake. Cranial nerves II through XII intact. Motor and sensory grossly within normal limits. Normal speech. Hospital Course 1. Encephalopathy, multifactorial from dehydration and possible sepsis with history of dementia. He is improved back to baseline per . Cannot exclude underlying pneumonia patient with cough. He is stable with negative blood cultures will switch to p.o. Ceftin and Zithromax. Pleural fluid studies indicate transudate pending culture and cytology 2. CHF, EF 20%. Stable. CHF education, I/O and monitor weight. Ct BB unable to start FABIO 2/2 DEJA. F/u card re AICD 3. Diabetes mellitus. Stable continue sliding-scale 4. Atrial fibrillation. With episodes of RVR noncompliant with Toprol, he has been counseled as well as the . Not anticoagulated secondary to brain bleed 5. CAD. Denies chest pain and shortness of breath. Troponin elevation secondary to dehydration, acute kidney injury and possible sepsis. Does not want cardiac catheterization because of history of kidney transplant. Continue medical management 6. Acute kidney injury secondary to dehydration with history of renal transplant. Nonoliguric. Improving Avoid nephrotoxins. Further management per nephrology, ct to hold bumex Avoid aggressive IV fluid hydration secondary to CHF and anasarca 7. Probable acute or subacute splenic infarct. Denies abdominal pain. F/u echocardiogram showed no clots FEN Heart healthy diabetic diet. Gentle IV hydration if oral intake less than 50% Electrolytes: Monitor and replete as needed Holding pharmacologic anticoagulation secondary to history of brain bleed and thrombocytopenia Pt Condition on Discharge: Stable Discharge Disposition: Discharge Home Discharge Time: > 30 minutes Discharge Instructions DIET: Follow Instructions for: Heart Healthy Diet Activities you can perform: Regular-No Restrictions Activities to Avoid: Driving Follow up Referrals: Cardiology - 1 Week Nephrology - 1 Week PCP Follow-up - 10/01/17 New Orders: BASIC METABOLIC PROF - 09/30/17 X-RAY CHEST PA & LAT - 6 Weeks New Medications: Azithromycin (Azithromycin) 250 Mg Tab 250 MG PO DAILY for Infection, #2 TAB dc 09/29 Cefuroxime (Cefuroxime) 500 Mg Tab 500 MG PO Q12HR for Infection, #8 TAB dc 10/01/17 Continued Medications: Albuterol Neb (Albuterol Neb) 2.5 Mg/3 Ml Neb 2.5 MG NEB BID PRN for SHORTNESS OF BREATH, #1 NEBULE 0 Refills Bethanechol (Bethanechol) 25 Mg Tab 25 MG PO BID for Urinary Symptom Managemen, #60 TAB 0 Refills Calcitriol (Rocaltrol) 0.25 Mcg Cap 0.5 MCG PO DAILY for low calcium, #30 CAP 0 Refills Finasteride (Proscar) 5 Mg Tab 5 MG PO DAILY for Manage Prostate Problems, #30 TAB 0 Refills Do not crush. Hydrocodone-Acetaminophen (Cascade) 5 Mg-325 Mg Tab 1 TAB PO Q6H PRN for PAIN, TAB 0 Refills Hydrocortisone (Topical) (Eq Anti-Itch Maximum Stre) 1 % Cre 1 APPLIC TOPICAL BID, #1 TUBE Insulin Human Isophane-Regular 70-30 Inj (Novolin 70/30 Inj) 1,000 Units/10 Ml Inj SQ ACHS SLIDING SCALE Isosorbide Mononitrate ER (Isosorbide Mononitrate ER) 30 Mg Sidney 30 MG PO DAILY@07 for heart disease, #30 TAB 0 Refills Levetiracetam (Keppra) 500 Mg Tab 500 MG PO BID, #60 TAB 0 Refills Magnesium Oxide (Magnesium Oxide) 400 Mg Tab 400 MG PO DAILY for Nutritional Supplement, TAB 0 Refills Melatonin (Melatonin) 10 Mg Tab 10 MG PO HS for SLEEP, #30 TAB 0 Refills Metoprolol Succinate ER 24 HR (Toprol XL) 25 Mg Tab 12.5 MG PO DAILY, #30 TAB 0 Refills Montelukast (Singulair) 10 Mg Tab 10 MG PO DAILY, #30 TAB 0 Refills Ondansetron (Zofran) 8 Mg Tab 8 MG PO prn for Nausea/Vomiting, TAB 0 Refills Oyster Shell (Calcium Oyster Shell) 500 Mg Calcium (1250 Mg) Tab 500 MG PO BID for Nutritional Supplement Discontinued Medications: Bumetanide (Bumetanide) 1 Mg Tab 1 MG PO EVERY OTHER DAY, #30 TAB 0 Refills Additional Information f/u pleural fluid cx and cytology Jong Tariq MD Sep 27, 2017 16:19
--- NOTE | 2017-09-27 18:19 | ECHRPT ---
Indication: ATRIAL FIB/FLUTTER CONCLUSIONS The left ventricular systolic function is severely reduced with an estimated ejection fraction in th e range of 20-25%. There is diffuse global hypokinesis with distinct regional wall motion abnormalities, anterior, ante roseptal and apical akinesis. The right ventricular systoilc function is moderately decreased. Mild mitral valve regurgitation. There is moderate tricuspid regurgitation. There is estimated severe pulmonary hypertension present ( > 70 mmHg). Trivial pulmonary valve regurgitation. BP: 107 / 57 HR: 81 Rhythm: Sinus MEASUREMENTS (Male / Female) Normal Values Technical Quality:Fair 2D ECHO LVOT Diameter 2.2 cm Aortic Root Diameter 4.0 cm DOPPLER AV Peak Velocity 70.2 cm/s AV Peak Gradient 2.0 mmHg AV Mean Gradient 2.0 mmHg AV Velocity Time Integral 11.6 cm LVOT Peak Velocity 43.6 cm/s LVOT Peak Gradient 0.8 mmHg LVOT Velocity Time Integral 7.6 cm AV Area Cont Eq vti 2.5 cm AV Area Cont Eq pk 2.4 cm Mitral E Point Velocity 70.9 cm/s LV E' Lateral Velocity 8.7 cm/s Mitral E to LV E' Lateral Ratio 8.2 LV E' Septal Velocity 4.4 cm/s Mitral E to LV E' Septal Ratio 16.1 TR Peak Velocity 400.0 cm/s TR Peak Gradient 64.0 mmHg Right Atrial Pressure 10.0 mmHg Pulmonary Artery Systolic Pressu 74.0 mmHg Right Ventricular Systolic Press 74.0 mmHg PV Peak Velocity 49.6 cm/s PV Peak Gradient 1.0 mmHg FINDINGS LEFT VENTRICLE The left ventricular systolic function is severely reduced with an estimated ejection fraction in th e range of 20-25%. There is diffuse global hypokinesis with distinct regional wall motion abnormalities, anterior, ante roseptal and apical akinesis. RIGHT VENTRICLE The right ventricular size is normal. The right ventricular systoilc function is moderately decreased. LEFT ATRIUM The left atrial size is [id number] dilated. RIGHT ATRIUM The right atrial size is [id number] dilated. ATRIAL SEPTUM No atrial level shunt is demonstrated by color flow Doppler interrogation. AORTA The aortic root and proximal ascending aorta are not well visualized. MITRAL VALVE Mild thickening of the mitral valve leaflets. No mitral valve stenosis. Mild mitral valve regurgitation. Moderate mitral annular calcification. AORTIC VALVE Aortic valve sclerosis is present. No aortic valve stenosis. No aortic valve regurgitation. TRICUSPID VALVE There is moderate tricuspid regurgitation. The estimated pulmonary arterial pressure is 74 mmHg. There is estimated severe pulmonary hypertension present ( > 70 mmHg). PULMONARY VALVE Trivial pulmonary valve regurgitation. VESSELS The inferior vena cava is normal in size. Keven Stone DO (Electronically Signed) Final Date:27 September 2017 18:18
[2017-09-28] VITALS: PULSE 83
[2017-09-28 04:00] VITALS: PULSE 86
[2017-09-28 05:16] LABS: BICARBONATE 26.4 MEQ/L (21.0-32.0); CALCIUM 8.5 MG/DL (8.5-10.1); CREATININE 1.53 MG/DL (0.60-1.30); MAGNESIUM 2.1 MG/DL (1.5-2.5)
[2017-09-28 05:44] VITALS: BP 114/59; PULSE 92; RESP 20; TEMP 97.8; O2SAT 100
[2017-09-28] MEDS: ISOSORBIDE MONONITRATE 30 MG CR TAB (IMDUR) PO SCH (06:52)
[2017-09-28 08:00] VITALS: PULSE 65
[2017-09-28] MEDS: INSULIN ASPART SUPPLEMENTAL SCALE SQ SCH (08:00)
[2017-09-28 08:05] VITALS: BP 100/58; PULSE 87; RESP 20; TEMP 97.5; O2SAT 100
[2017-09-28] MEDS: METOPROLOL SUCCINATE 25 MG EXTENDED RELEASE TAB PO SCH (09:00)
[2017-09-28] MEDS: SODIUM CHLORIDE 0.9% FLUSH 10 ML FLUSH IV FLUSH SCH (09:00)
[2017-09-28] MEDS: CALCITRIOL 0.25 MCG CAP PO SCH (09:25)
[2017-09-28] MEDS: AZITHROMYCIN 250 MG TAB PO SCH (09:25)
[2017-09-28] MEDS: MAGNESIUM OXIDE 400 MG TAB PO SCH (09:25)
[2017-09-28] MEDS: BETHANECHOL CHL 25 MG TAB PO SCH (09:26)
[2017-09-28] MEDS: levETIRAcetam 500 MG TAB PO SCH (09:26)
[2017-09-28] MEDS: CALCIUM CARBONATE 1.25 GM (CA 500 MG) TAB PO SCH (09:26)
[2017-09-28] MEDS: CEFUROXIME AXETIL 500 MG TAB PO SCH (09:26)
[2017-09-28] MEDS: FINASTERIDE 5 MG TAB PO SCH (09:26)
[2017-09-28] MEDS: MONTELUKAST SODIUM 10 MG TAB PO SCH (09:26)
--- NOTE | 2017-09-28 09:58 | HHI.PR ---
Subjective Remarks F/U DEJA and CHF. No complaints Objective Vitals Vital Signs Date Time Temp Pulse Resp B/P (MAP) Pulse Ox O2 Delivery O2 Flow Rate FiO2 09/28/17 05:44 97.8 92 20 114/59 (77) 100 09/28/17 04:00 86 09/28/17 00:00 83 09/27/17 23:50 97.5 90 20 100/56 (71) 92 09/27/17 20:00 94 Room Air 09/27/17 20:00 118 09/27/17 20:00 98.1 94 20 89/52 (64) 96 09/27/17 16:05 98.7 103 16 96/62 (73) 95 09/27/17 12:05 98.2 109 16 108/58 (75) 97 09/27/17 12:00 95 I/O 09/27/17 09/27/17 09/27/17 09/28/17 09/28/17 09/28/17 07:00 15:00 23:00 07:00 15:00 23:00 Intake Total 0 ml 350 ml 520 ml 120 ml Output Total 300 ml 400 ml Balance -300 ml 350 ml 520 ml -280 ml Intake Oral 0 ml 520 ml 120 ml IV Total 350 ml Output Urine Total 300 ml 400 ml Bladder Scan Volume Amount 186 ml # Voids 0 5 # Bowel Movements 1 1 1 Result Diagram: 09/26/17 0345 09/28/17 0420 Objective Remarks GENERAL: male in no distress SKIN: No rashes, ecchymoses or lesions. Cool and dry. CARDIOVASCULAR: Regular rate and rhythm without murmurs, gallops, or rubs. RESPIRATORY: Decreased breath sounds bilaterally GASTROINTESTINAL: Abdomen soft, non-tender, nondistended. No guarding. MUSCULOSKELETAL: Extremities without clubbing, cyanosis, or edema. No joint tenderness, effusion, or edema noted. No calf tenderness. NEUROLOGICAL: Alert and awake. Cranial nerves II through XII intact. Motor and sensory grossly within normal limits. Normal speech. Procedures Ultrasound-guided thoracentesis of the left pleural effusion A/P Problem List: (1) Generalized weakness ICD Code: R53.1 - Weakness Status: Acute (2) Altered mental status ICD Code: R41.82 - Altered mental status, unspecified Status: Acute Assessment and Plan 1. Encephalopathy, multifactorial from dehydration and possible sepsis with history of dementia. He is improved back to baseline per . Cannot exclude underlying pneumonia patient with cough. He is stable with negative blood cultures will switch to p.o. Ceftin and Zithromax. Pleural fluid studies indicate transudate pending culture and cytology 2. CHF, EF 20%. Stable. CHF education, I/O and monitor weight. Ct BB unable to start FABIO 2/2 DEJA. F/u card re AICD 3. Diabetes mellitus. Stable continue sliding-scale 4. Atrial fibrillation. With episodes of RVR noncompliant with Toprol, he has been counseled as well as the . Not anticoagulated secondary to brain bleed 5. CAD. Denies chest pain and shortness of breath. Troponin elevation secondary to dehydration, acute kidney injury and possible sepsis. Does not want cardiac catheterization because of history of kidney transplant. Continue medical management 6. Acute kidney injury secondary to dehydration with history of renal transplant. Nonoliguric. Improving Avoid nephrotoxins. Further management per nephrology, ct to hold bumex Avoid aggressive IV fluid hydration secondary to CHF and anasarca 7. Probable acute or subacute splenic infarct. Denies abdominal pain. F/u echocardiogram showed no clots FEN Heart healthy diabetic diet. Gentle IV hydration if oral intake less than 50% Electrolytes: Monitor and replete as needed Holding pharmacologic anticoagulation secondary to history of brain bleed and thrombocytopenia Discharge Planning Possible discharge today Problem Qualifiers (1) Altered mental status: Qualified Codes: R41.82 - Altered mental status, unspecified Jong Tariq MD Sep 28, 2017 09:58
[2017-09-28 12:05] VITALS: BP 106/72; PULSE 86; RESP 20; TEMP 98.1; O2SAT 97
== END 2017-09-28 12:51 | disposition home or self-care (01) | DRG 871 ==
LOC: NEPE 15:51 → NEDA 21:00 → N04A 09-25 00:13
PROVIDERS: ADMIT Internal Medicine; ATTEND Internal Medicine
PROC: 0W9B3ZZ Drainage of Left Pleural Cavity, Percutaneous Approach (ICD-10-PCS; principal; 2017-09-26)
DX: A41.9 Sepsis, unspecified organism (principal); G93.40 Encephalopathy, unspecified; J90 Pleural effusion, not elsewhere classified; I13.0 Hypertensive heart and chronic kidney disease with heart failure and stage 1 through stage 4 chronic kidney disease, or unspecified chronic kidney disease; N17.9 Acute kidney failure, unspecified; J18.9 Pneumonia, unspecified organism; I50.9 Heart failure, unspecified; F03.90 Unspecified dementia, unspecified severity, without behavioral disturbance, psychotic disturbance, mood disturbance, and anxiety; I42.9 Cardiomyopathy, unspecified; Z94.0 Kidney transplant status; E11.22 Type 2 diabetes mellitus with diabetic chronic kidney disease; I48.91 Unspecified atrial fibrillation; E86.0 Dehydration; E20.9 Hypoparathyroidism, unspecified; N40.1 Benign prostatic hyperplasia with lower urinary tract symptoms; D73.5 Infarction of spleen; R33.9 Retention of urine, unspecified; N18.3 Chronic kidney disease, stage 3 (moderate); I25.10 Atherosclerotic heart disease of native coronary artery without angina pectoris; R65.20 Severe sepsis without septic shock; Z85.828 Personal history of other malignant neoplasm of skin; Z86.73 Personal history of transient ischemic attack (TIA), and cerebral infarction without residual deficits; Z87.440 Personal history of urinary (tract) infections; Z95.1 Presence of aortocoronary bypass graft; Z91.14 Patient's other noncompliance with medication regimen; Z79.4 Long term (current) use of insulin
CPT/HCPCS: 32555; 70450; 71045; 74177; 80048; 80053; 81001; 82306; 82550; 82945; 82948; 83605; 83615; 83690; 83735; 83986; 84100; 84157; 84443; 84484; 85007; 85025; 85027; 85610; 85730; 87040; 87070; 87086; 87205; 88112; 88305; 89051; 93005; 93306; 94150; 94640; 94664; 96365; 96366; C1729; J0456; J0696; J1644; J1815; J2405; J2543; J7050; Q9967

== ENCOUNTER 2018-01-07 16:15 | Inpatient (IN) ==
--- NOTE | 2018-01-07 17:16 | XR ---
EXAM DATE: 01/07/2018 5:02 PM EDT AGE/SEX: 77 years / Male INDICATIONS: . Left lung effusion, CHF. CLINICAL DATA: This is the patient's initial encounter. Patient reports that signs and symptoms have been present for 4 - 6 days and indicates a pain score of 0/10. MEDICAL/SURGICAL HISTORY: Congestive heart failure. Diabetes mellitus type II. CABG. COMPARISON: [facility] [place], CHEST EXPIRATION ONLY, 09/26/2017. . FINDINGS: PA and lateral views of the chest demonstrate bilateral pleural effusions, left greater than right wh ich are new findings compared with September 26. No focal consolidation. Basilar atelectasis. Previous st ernotomy. No pneumothorax. CONCLUSION: Small bilateral pleural effusions, left greater than right. Mild cardiomegaly. Previous sternotomy. Electronically signed by: Kirby Kyle MD 01/07/2018 5:15 PM EDT
--- NOTE | 2018-01-07 18:01 | ED ---
HPI General Chief complaint: Shortness of Breath/Dyspnea Stated complaint: Sent by /ABDIRAHMAN Time Seen by Provider: 01/07/18 17:50 History of Present Illness HPI narrative: 77-year-old male with a history of CAD, CABG, CHF, renal transplant, mild dementia presents to the emergency department for evaluation of swelling and shortness of breath. The patient's is the primary historian. The pa patient's states that he was seen by Dr. Jone Gray cardiology in office today for evaluation of his swelling and shortness of breath and was told to come to the hospital for IV diuresis. The patient has had worsening swelling in his lower extremities and shortness of breath over the past several months. 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 States that his log yard derrick operator requested that he see his engine dispatcher sooner for further evaluation of this continued issue. He has been taking Bumex. The patient does complain of mild shortness of breath and lower extremity edema. Patient denies any chest pain, lightheadedness, dizziness, nausea, vomiting, diarrhea, abdominal pain. PCP Dr. Beasley. No other complaints. Related Data Home Medications Medication Instructions Recorded Confirmed albuterol sulfate 2.5 mg INHALATION Q4H PRN 01/07/18 01/07/18 bethanechol chloride 25 mg PO BID 01/07/18 01/07/18 bumetanide 1 mg PO BID 01/07/18 01/07/18 calcitriol 0.25 mcg PO DAILY 01/07/18 01/07/18 calcium carbonate [Calcium 500] 500 mg PO BID 01/07/18 01/07/18 ciprofloxacin HCl [Cipro] 500 mg PO BID 01/07/18 01/07/18 finasteride 5 mg PO DAILY 01/07/18 01/07/18 hydrocodone-acetaminophen 1 tab PO Q4-6H PRN 01/07/18 01/07/18 isosorbide mononitrate 30 mg PO DAILY 01/07/18 01/07/18 levetiracetam 500 mg PO Q12H 01/07/18 01/07/18 magnesium oxide-Mg AA chelate 400 mg PO DAILY 01/07/18 01/07/18 [Magnesium (oxide/AA chelate)] melatonin 10 mg PO HS 01/07/18 01/07/18 montelukast 10 mg PO QPM 01/07/18 01/07/18 ondansetron HCl [Zofran] 8 mg PO BID PRN 01/07/18 01/07/18 potassium chloride 20 meq PO DAILY 01/07/18 01/07/18 Allergies Allergy/AdvReac Type Severity Reaction Status Date / Time aspirin Allergy Severe Bleeding Verified 01/07/18 19:19 diclofenac Allergy Severe bleeding Verified 01/07/18 19:19 etodolac Allergy Severe bleeding Verified 01/07/18 19:19 flurbiprofen Allergy Severe bleeding Verified 01/07/18 19:19 haloperidol Allergy Severe Confusion Verified 01/07/18 19:19 ibuprofen Allergy Severe bleeding Verified 01/07/18 19:19 indomethacin Allergy Severe bleeding Verified 01/07/18 19:19 ketoprofen Allergy Severe bleeding Verified 01/07/18 19:19 ketorolac Allergy Severe bleeding Verified 01/07/18 19:19 naproxen Allergy Severe bleeding Verified 01/07/18 19:19 oxaprozin Allergy Severe bleeding Verified 01/07/18 19:19 oxcarbazepine Allergy Severe Bleeding Verified 01/07/18 19:19 Review of Systems ROS: all other systems reviewed are negative PMFSH Medical History Medical History CAD (coronary artery disease) (Acute) CHF (congestive heart failure) (Acute) CVA (cerebral vascular accident) (Acute) Diabetes (Acute) Hemangioma (Acute) SHAUNA (renal osteodystrophy) (Acute) Surgical History Surgical History H/O parathyroidectomy (Acute) History of YAG laser capsulotomy of lens (Acute) History of cardiac cath (Acute) Kidney transplanted (Acute) S/P CABG x 5 (Acute) Status post laser cataract surgery of both eyes (Acute) Social History Social History Substance History: No History of Abuse Smoking Status: Never smoker How Often Do You Have a Drink Containing Alcohol: Never Recent Travel in [place] within the Last 8 Weeks: No Recent Out of Country Travel within the Last 8 Weeks: No Exam Narrative Exam Narrative: GENERAL: Well-nourished and well-developed pleasant male patient in no acute distress who is nontoxic appearing. SKIN: Warm and dry. HEAD: Normocephalic and atraumatic. EYES: No injection, drainage, or hyphema noted. PERRLA. EOMI. ENT: No nasal drainage noted. Oropharynx is clear. NECK: Supple and the trachea is midline. CARDIOVASCULAR: Regular rate and rhythm. RESPIRATORY: Breath sounds are equal bilaterally with no accessory muscle use, wheezing, rhonchi, or crackles. GASTROINTESTINAL: Abdomen is soft, non-tender, and nondistended. No hepatosplenomegaly. MUSCULOSKELETAL: Pitting edema to bilateral lower extremities. No obvious deformities, cyanosis, or ecchymosis is present throughout the upper and lower extremities. Patient has full range of motion without any signs of neurovascular compromise. Distal pulses are 2+ throughout. NEUROLOGICAL: Awake, alert, and oriented. Normal speech and gait. Cranial nerves are grossly intact. Course Initial Documented Vital Signs Temperature 98.3 F 01/07/18 16:32 Pulse Rate 92 H 01/07/18 16:32 Respiratory Rate 20 01/07/18 16:32 Blood Pressure 103/53 L 01/07/18 16:32 Pulse Oximetry 94 L 01/07/18 16:32 Last Documented Vital Signs Temperature 98.3 F 01/07/18 16:32 Pulse Rate 83 01/07/18 20:07 Respiratory Rate 19 01/07/18 20:07 Blood Pressure 119/60 01/07/18 20:07 Pulse Oximetry 99 01/07/18 20:07 Medical Decision Making KHADIJAH Attestation KHADIJAH supervised visit: Yes Attestation: I, Dr. Thomas, have reviewed the advance practice practitioner's documentation and am in agreement, met with the patient face to face, made the diagnosis, and the medical decision making was done by me. *My assessment and Findings: Patient seen and evaluated with PA, please see PA notes for further details. He apparently has extended medical history, CHF, transplanted kidneys, having been sent by cardiology for CHF exacerbation and IV diuresis planning on workup and admission per cardiology.. [facility] Narrative Medical decision making narrative: 77-year-old male reportedly sent to the emergency department by his engine dispatcher for IV diuresis due to fluid overload. IV access is obtained, labs have been drawn and sent. Patient is placed on cardiac telemetry and pulse oximetry monitoring. Patient has remained stable while here in the ED. Labs show elevated BNP consistent with CHF exacerbation and reduced kidney function consistent with chronic kidney disease. There is also an elevated troponin of 0.32 which is trending upward from his previous troponin. My attending physician spoke with Dr. Gray who states he would like the patient admitted for IV diuresis and to be consulted. I spoke with Dr. Holland who agrees to admit the patient to our service and requests patient be given either Bumex 1 mg IV now or Lasix 60 mg IV now. Differential Diagnosis Differential Diagnosis: CHF exacerbation versus kidney failure versus fluid overload versus other Lab Data Result diagrams: 01/07/18 18:19 01/07/18 18:19 Lab Results 01/07/18 01/07/18 01/07/18 Range/Units 18:19 18:19 18:19 WBC 6.0 (4.0-11.0) th/mm3 RBC 5.52 (4.50-5.90) mil/mm3 Hgb 15.1 (13.0-17.0) gm/dL Hct 46.6 (39.0-51.0) % MCV 84.3 (80.0-100.0) fL MCH 27.3 (27.0-34.0) pg MCHC 32.4 (32.0-36.0) % RDW 17.7 H (11.6-17.2) % Plt Count 120 L (150-450) th/mm3 MPV 9.0 (7.0-11.0) fL Neut % (Auto) 68.7 (16.0-70.0) % Lymph % (Auto) 13.0 (9.0-44.0) % [place] % (Auto) 17.4 H (0.0-8.0) % Eos % (Auto) 0.4 (0.0-4.0) % Baso % (Auto) 0.5 (0.0-2.0) % Neut # (Auto) 4.1 (1.8-7.7) th/mm3 Lymph # (Auto) 0.8 L (1.0-4.8) th/mm3 [place] # (Auto) 1.0 H (0.0-0.9) th/mm3 Eos # (Auto) 0.0 (0.0-0.4) th/mm3 Baso # (Auto) 0.0 (0.0-0.2) th/mm3 WBC Differential . Differential Comment Auto diff final Puncture Site Patient Temperature O2 Saturation (90-100) % ABG pH (7.380-7.420) ABG pCO2 (38-42) mmHg ABG pO2 (61-120) mmHg ABG HCO3 (22-26) mmol/L ABG O2 Content (12.0-20.0) Vol % ABG Base Excess (-2-2) mmol/L ABG Methemoglobin (0-2) % Edy Test Hemoglobin (12.0-16.0) G/DL Carboxyhemoglobin (0-4) % O2 Delivery Device Liter Flow L/M Critical Value Sodium 142 (136-145) meq/L Potassium 3.2 L (3.5-5.1) meq/L Chloride 93 L (98-107) meq/L Carbon Dioxide 41.1 H (21.0-32.0) meq/L Anion Gap 8 (5-15) meq/L BUN 27 H (7-18) mg/dL Creatinine 1.55 H (0.60-1.30) mg/dL Estimated GFR 44 L (>89) mL/min Random Glucose 147 H (74-106) mg/dL Calcium 9.9 (8.5-10.1) mg/dL Total Bilirubin 1.0 (0.2-1.0) mg/dL AST 25 (15-37) U/L ALT 19 (12-78) U/L Alkaline Phosphatase 111 (45-117) U/L Troponin I 0.32 H (0.02-0.05) ng/mL B-Natriuretic Peptide 561 H (0-100) pg/mL Total Protein 6.0 L (6.4-8.2) g/dL Albumin 2.6 L (3.4-5.0) g/dL 01/07/18 Range/Units 18:59 WBC (4.0-11.0) th/mm3 RBC (4.50-5.90) mil/mm3 Hgb (13.0-17.0) gm/dL Hct (39.0-51.0) % MCV (80.0-100.0) fL MCH (27.0-34.0) pg MCHC (32.0-36.0) % RDW (11.6-17.2) % Plt Count (150-450) th/mm3 MPV (7.0-11.0) fL Neut % (Auto) (16.0-70.0) % Lymph % (Auto) (9.0-44.0) % [place] % (Auto) (0.0-8.0) % Eos % (Auto) (0.0-4.0) % Baso % (Auto) (0.0-2.0) % Neut # (Auto) (1.8-7.7) th/mm3 Lymph # (Auto) (1.0-4.8) th/mm3 [place] # (Auto) (0.0-0.9) th/mm3 Eos # (Auto) (0.0-0.4) th/mm3 Baso # (Auto) (0.0-0.2) th/mm3 WBC Differential Differential Comment Puncture Site Left radial Patient Temperature 98.6 O2 Saturation 96 (90-100) % ABG pH 7.50 H (7.380-7.420) ABG pCO2 57 H* (38-42) mmHg ABG pO2 110 (61-120) mmHg ABG HCO3 44 H (22-26) mmol/L ABG O2 Content 19.6 (12.0-20.0) Vol % ABG Base Excess 18.8 H (-2-2) mmol/L ABG Methemoglobin 0.5 (0-2) % Edy Test Present Hemoglobin 14.4 (12.0-16.0) G/DL Carboxyhemoglobin 1.9 (0-4) % O2 Delivery Device Nasal cannula Liter Flow 2.00 L/M Critical Value Yes Sodium (136-145) meq/L Potassium (3.5-5.1) meq/L Chloride (98-107) meq/L Carbon Dioxide (21.0-32.0) meq/L Anion Gap (5-15) meq/L BUN (7-18) mg/dL Creatinine (0.60-1.30) mg/dL Estimated GFR (>89) mL/min Random Glucose (74-106) mg/dL Calcium (8.5-10.1) mg/dL Total Bilirubin (0.2-1.0) mg/dL AST (15-37) U/L ALT (12-78) U/L Alkaline Phosphatase (45-117) U/L Troponin I (0.02-0.05) ng/mL B-Natriuretic Peptide (0-100) pg/mL Total Protein (6.4-8.2) g/dL Albumin (3.4-5.0) g/dL Imaging Data Radiologist's impression: Chest X-Ray 01/07/18 16:41 CONCLUSION: Small bilateral pleural effusions, left greater than right. Mild cardiomegaly. Previous sternotomy. Discharge Plan Discharge Disposition Patient Disposition: 30 Still Patient Discharge Details Diagnosis: Acute exacerbation of CHF (congestive heart failure) Physicians Team ED Provider: Kameron Thomas ED Midlevel Provider: Gia Yusuf Primary Care Provider: Luis Angel Beasley Attending Provider: Vida Holland Discharge Interventions Interventions: Vital Signs Last Done: 01/07/18 20:07 Status ED Status: Admitted Patient
[2018-01-07 18:55] LABS: Baso % (Auto) 0.5 % (0.0-2.0); Eos % (Auto) 0.4 % (0.0-4.0); Hematocrit 46.6 % (39.0-51.0); Hemoglobin 15.1 gm/dL (13.0-17.0); Lymph # (Auto) 0.8 th/mm3 (1.0-4.8); Mean Corpuscular HGB Conc 32.4 % (32.0-36.0); Mean Corpuscular Hemoglobin 27.3 pg (27.0-34.0); Mean Corpuscular Volume 84.3 fL (80.0-100.0); Mono % (Auto) 17.4 % (0.0-8.0); Neut # (Auto) 4.1 th/mm3 (1.8-7.7); Neut % (Auto) 68.7 % (16.0-70.0); Platelet Count 120 th/mm3 (150-450); Red Blood Count 5.52 mil/mm3 (4.50-5.90); Red Cell Distribution Width 17.7 % (11.6-17.2)
[2018-01-07 19:08] LABS: Albumin 2.6 g/dL (3.4-5.0); Anion Gap 8 meq/L (5-15); Aspartate Aminotransferase 25 U/L (15-37); Blood Urea Nitrogen 27 mg/dL (7-18); Calcium 9.9 mg/dL (8.5-10.1); Carbon Dioxide 41.1 meq/L (21.0-32.0); Chloride 93 meq/L (98-107); Glomerular Filtration Rate 44 mL/min (>89); Glucose,Random 147 mg/dL (74-106); Potassium 3.2 meq/L (3.5-5.1); Sodium 142 meq/L (136-145)
[2018-01-07 19:09] LABS: Alanine Aminotransferase 19 U/L (12-78)
[2018-01-07 19:12] LABS: Alkaline Phosphatase 111 U/L (45-117); Troponin I 0.32 ng/mL (0.02-0.05)
[2018-01-07 20:16] LABS: ABG Base Excess 18.8 mmol/L (-2-2); ABG PCO2 57 mmHg (38-42); ABG PO2 110 mmHg (61-120)
[2018-01-07] MEDS ORDERED: Dextrose 50% in Water 50 ML Vial IV.PUSH PRN (22:21)
--- NOTE | 2018-01-07 22:25 | P.HP ---
History of Present Illness Service: [facility] Primary Care Physician: Luis Angel Beasley MD History of Present Illness: 77-year-old male with a past medical history significant for CAD, CHF, history of CVA, diabetes mellitus and kidney disease status post renal transplant presents to the emergency department after being sent by his maintenance construction helper for exacerbation. The patient has been working with his hydro generation supervisor on diuresis. His hydro generation supervisor, Dr. Pro, sent him to his maintenance construction helper for further evaluation today. The patient denies any chest pain. No shortness of breath. He complains of swelling from his feet to his abdomen. Inpatient Certification: I certify that the inpatient services were ordered in accordance with Medicare regulations governing the order. This includes certification that hospital inpatient services are reasonable and necessary and in the case of services not specified as inpatient-only under 42 CFR 419.22(n), that they are appropriately provided as inpatient services in accordance to with the 2-midnight benchmark under 43 CFR 412.3(e) Estimated Total Length of Stay (Days): 3 Plans for Post Hospital Care: Not yet determined [facility] - History History Provided By: Patient - Medical History Medical History: Medical History (Last Updated 01/07/18 @ 18:06 by Tiffani Hendrix RN) CAD (coronary artery disease) CHF (congestive heart failure) CVA (cerebral vascular accident) Diabetes Hemangioma SHAUNA (renal osteodystrophy) - Surgical History Surgical History: Surgical History (Last Updated 01/07/18 @ 18:06 by Tiffani Hendrix RN) H/O parathyroidectomy History of YAG laser capsulotomy of lens History of cardiac cath Kidney transplanted S/P CABG x 5 Status post laser cataract surgery of both eyes - Family History Family History: Family History (Last Updated 01/07/18 @ 22:16 by Vida Holland MD) Other Diabetes - Tobacco History Smoking Status: Never smoker - Alcohol History How Often Do You Have a Drink Containing Alcohol: Never - Substance Use History Substance History: No History of Abuse - Travel History Recent Travel in the [place] Within the Last 8 Weeks: No Recent Travel Out of the Country Within the Last 8 Weeks: No - Immunization History Tetanus Immunization: Unsure Medications and Allergies Active Medications: Active Medications Hydrocodone Bitart/Acetaminophen ([place] 5/325) 1 tab PO Q4H PRN PRN Reason: PAIN SCALE 1 - 10 Albuterol (*Albuterol Neb Periprocedure Only) 2.5 mg NEB Q4HR NEB PRN PRN Reason: Shortness Of Breath / WheezinG Bethanechol Chloride (Urecholine) 25 mg PO BID KIAN Bumetanide (Bumex Inj) 1 mg IV.PUSH BID@0900,1800 KIAN Calcitriol (Rocaltrol) 0.25 mcg PO DAILY KIAN Finasteride (Proscar) 5 mg PO DAILY KIAN Isosorbide Mononitrate (Imdur) 30 mg PO DAILY KIAN Levetiracetam (Keppra) 500 mg PO Q12H KIAN Melatonin (Melatonin) 10 mg PO HS KIAN Montelukast Sodium (Singulair) 10 mg PO QPM KIAN Ondansetron HCl (Zofran Odt) 8 mg PO BID PRN PRN Reason: Nausea Sodium Chloride (Ns Flush) 2 ml IV.FLUSH BID KIAN Sodium Chloride (Ns Flush) 2 ml IV.FLUSH UNSCH PRN PRN Reason: FLUSH AFTER USING IV ACCESS Allergies Allergy/AdvReac Type Severity Reaction Status Date / Time aspirin Allergy Severe Bleeding Verified 01/07/18 19:19 diclofenac Allergy Severe bleeding Verified 01/07/18 19:19 etodolac Allergy Severe bleeding Verified 01/07/18 19:19 flurbiprofen Allergy Severe bleeding Verified 01/07/18 19:19 haloperidol Allergy Severe Confusion Verified 01/07/18 19:19 ibuprofen Allergy Severe bleeding Verified 01/07/18 19:19 indomethacin Allergy Severe bleeding Verified 01/07/18 19:19 ketoprofen Allergy Severe bleeding Verified 01/07/18 19:19 ketorolac Allergy Severe bleeding Verified 01/07/18 19:19 naproxen Allergy Severe bleeding Verified 01/07/18 19:19 oxaprozin Allergy Severe bleeding Verified 01/07/18 19:19 oxcarbazepine Allergy Severe Bleeding Verified 01/07/18 19:19 Home Medications Medication Instructions Recorded Confirmed Type albuterol sulfate 2.5 mg INHALATION Q4H PRN 01/07/18 01/07/18 History bethanechol chloride 25 mg PO BID 01/07/18 01/07/18 History bumetanide 1 mg PO BID 01/07/18 01/07/18 History calcitriol 0.25 mcg PO DAILY 01/07/18 01/07/18 History calcium carbonate [Calcium 500] 500 mg PO BID 01/07/18 01/07/18 History ciprofloxacin HCl [Cipro] 500 mg PO BID 01/07/18 01/07/18 History finasteride 5 mg PO DAILY 01/07/18 01/07/18 History hydrocodone-acetaminophen 1 tab PO Q4-6H PRN 01/07/18 01/07/18 History isosorbide mononitrate 30 mg PO DAILY 01/07/18 01/07/18 History levetiracetam 500 mg PO Q12H 01/07/18 01/07/18 History magnesium oxide-Mg AA chelate 400 mg PO DAILY 01/07/18 01/07/18 History [Magnesium (oxide/AA chelate)] melatonin 10 mg PO HS 01/07/18 01/07/18 History montelukast 10 mg PO QPM 01/07/18 01/07/18 History ondansetron HCl [Zofran] 8 mg PO BID PRN 01/07/18 01/07/18 History potassium chloride 20 meq PO DAILY 01/07/18 01/07/18 History Exam Vital signs: Vital Signs 01/07/18 16:32 01/07/18 17:57 01/07/18 18:04 Temperature 98.3 F Pulse Rate 92 H 80 Respiratory Rate 20 19 Blood Pressure 103/53 L 96/55 L Pulse Oximetry 94 L 89 L 100 01/07/18 20:07 Temperature Pulse Rate 83 Respiratory Rate 19 Blood Pressure 119/60 Pulse Oximetry 99 Intake & Output 01/07/18 01/07/18 01/08/18 06:59 18:59 06:59 Weight 76.204 kg Narrative: Gen.: No acute distress Head: Normocephalic. Atraumatic. EENT: Pupils equal round and reactive to light. Nose without drainage. Airway intact. Throat without injection. Cardiovascular: Regular rate and rhythm. No murmurs, rubs or gallops. Respiratory: Lungs clear to auscultation bilaterally. No wheezes or rhonchi. Abdomen: Soft, nontender, nondistended. No peritoneal signs. Musculoskeletal: No gross deformities. 2+ edema in the bilateral lower extremities that extends to the scrotum and abdomen. Skin: No obvious rashes or erythema. Neuro: Sensory and motor grossly intact. Cranial nerves II through XII grossly intact. Psych: Appropriate mood and affect Results - Labs CBC & Chem 7: 01/07/18 18:19 01/07/18 18:19 Labs: Laboratory Results - last 24 hr 01/07/18 01/07/18 01/07/18 18:19 18:19 18:19 WBC 6.0 RBC 5.52 Hgb 15.1 Hct 46.6 MCV 84.3 MCH 27.3 MCHC 32.4 RDW 17.7 H Plt Count 120 L MPV 9.0 Neut % (Auto) 68.7 Lymph % (Auto) 13.0 [place] % (Auto) 17.4 H Eos % (Auto) 0.4 Baso % (Auto) 0.5 Neut # (Auto) 4.1 Lymph # (Auto) 0.8 L [place] # (Auto) 1.0 H Eos # (Auto) 0.0 Baso # (Auto) 0.0 WBC Differential . Differential Comment Auto diff final Puncture Site Patient Temperature O2 Saturation ABG pH ABG pCO2 ABG pO2 ABG HCO3 ABG O2 Content ABG Base Excess ABG Methemoglobin Edy Test Hemoglobin Carboxyhemoglobin O2 Delivery Device Liter Flow Critical Value Sodium 142 Potassium 3.2 L Chloride 93 L Carbon Dioxide 41.1 H Anion Gap 8 BUN 27 H Creatinine 1.55 H Estimated GFR 44 L Random Glucose 147 H Calcium 9.9 Total Bilirubin 1.0 AST 25 ALT 19 Alkaline Phosphatase 111 Troponin I 0.32 H B-Natriuretic Peptide 561 H Total Protein 6.0 L Albumin 2.6 L 01/07/18 18:59 WBC RBC Hgb Hct MCV MCH MCHC RDW Plt Count MPV Neut % (Auto) Lymph % (Auto) [place] % (Auto) Eos % (Auto) Baso % (Auto) Neut # (Auto) Lymph # (Auto) [place] # (Auto) Eos # (Auto) Baso # (Auto) WBC Differential Differential Comment Puncture Site Left radial Patient Temperature 98.6 O2 Saturation 96 ABG pH 7.50 H ABG pCO2 57 H* ABG pO2 110 ABG HCO3 44 H ABG O2 Content 19.6 ABG Base Excess 18.8 H ABG Methemoglobin 0.5 Edy Test Present Hemoglobin 14.4 Carboxyhemoglobin 1.9 O2 Delivery Device Nasal cannula Liter Flow 2.00 Critical Value Yes Sodium Potassium Chloride Carbon Dioxide Anion Gap BUN Creatinine Estimated GFR Random Glucose Calcium Total Bilirubin AST ALT Alkaline Phosphatase Troponin I B-Natriuretic Peptide Total Protein Albumin - Imaging Impressions Chest X-Ray 01/07/18 16:41 CONCLUSION: Small bilateral pleural effusions, left greater than right. Mild cardiomegaly. Previous sternotomy. Caprini VTE Risk Assessment Caprini VTE Risk Assessment: Moderate/High Risk (score >= 2) Caprini Risk Assessment Model: Point Value = 1 Point Value = 2 Point Value = 3 Point Value = 5 Age 41-60 Minor surgery BMI > 25 kg/m2 Swollen legs Varicose veins or History of unexplained or recurrent spontaneous Oral contraceptives or hormone replacement Sepsis (< 1 month) Serious lung disease, including pneumonia (< 1 month) Abnormal pulmonary function Acute myocardial infarction Congestive heart failure (< 1 month) History of inflammatory bowel disease Medical patient at bed rest Age 61-74 Arthroscopic surgery Major open surgery (> 45 min) Laparoscopic surgery (> 45 min) Malignancy Confined to bed (> 72 hours) Immobilizing plaster cast Central venous access Age >= 75 History of VTE Family history of VTE Factor V Leiden Prothrombin [id number] Lupus anticoagulant Anticardiolipin antibodies Elevated serum homocysteine Heparin-induced thrombocytopenia Other congenital or acquired thrombophilia Stroke (< 1 month) Elective arthroplasty Hip, pelvis, or leg fracture Acute spinal cord injury (< 1 month) Prophylaxis Regimen: Total Risk Factor Score Risk Level Prophylaxis Regimen 0-1 Low Early ambulation 2 Moderate Order ONE of the following: *Sequential Compression Device (SCD) *Heparin 5000 units SQ BID 3-4 Higher Order ONE of the following medications: *Heparin 5000 units SQ TID *Enoxaparin/Lovenox 40 mg SQ daily (WT < 150 kg, CrCl > 30 mL/min) *Enoxaparin/Lovenox 30 mg SQ daily (WT < 150 kg, CrCl > 10-29 mL/min) *Enoxaparin/Lovenox 30 mg SQ BID (WT < 150 kg, CrCl > 30 mL/min) AND/OR *Sequential Compression Device (SCD) 5 or more Highest Order ONE of the following medications: *Heparin 5000 units SQ TID (Preferred with Epidurals) *Enoxaparin/Lovenox 40 mg SQ daily (WT < 150 kg, CrCl > 30 mL/min) *Enoxaparin/Lovenox 30 mg SQ daily (WT < 150 kg, CrCl > 10-29 mL/min) *Enoxaparin/Lovenox 30 mg SQ BID (WT < 150 kg, CrCl > 30 mL/min) AND *Sequential Compression Device (SCD) Assessment and Plan - Plan Assessment/plan: 1. CHF exacerbation IV Bumex Cardiology, nephrology consulted for assistance with diuresis in the setting of kidney disease 2. Chronic kidney disease status post renal transplantation Plan as above 3. Diabetes mellitus Sliding-scale insulin Monitor blood glucose 4. Atrial fibrillation Continue home medications Patient not anticoagulated secondary to brain bleed 5. CAD Continue home medications FEN: Heart healthy diet Electrolytes: Monitor and replete as needed Holding pharmacologic anticoagulation secondary to history of brain bleed
[2018-01-08] MEDS: Melatonin 5 MG Tablet PO SCH ×2 (01:47→22:25)
[2018-01-08] MEDS: levETIRAcetam 500 MG Tablet PO SCH ×3 (01:49→21:54)
[2018-01-08 02:25] LABS: Blood Urea Nitrogen 30 mg/dL (7-18); Calcium 9.3 mg/dL (8.5-10.1); Chloride 96 meq/L (98-107); Glomerular Filtration Rate 43 mL/min (>89); Glucose,Random 166 mg/dL (74-106); Potassium 3.5 meq/L (3.5-5.1); Sodium 142 meq/L (136-145)
[2018-01-08 02:29] LABS: Troponin I 0.23 ng/mL (0.02-0.05)
[2018-01-08 02:31] LABS: Anion Gap 1 meq/L (5-15)
[2018-01-08] MEDS: Insulin NovoLIN Regular Correctional Sugar Inj SQ SCH ×5 (03:44→22:30)
[2018-01-08] MEDS ORDERED: Non-Formulary Drug (Potassium Chloride [Potassium Chloride] 20 MEQ) PO SCH (09:00)
[2018-01-08] MEDS: Calcium Carbonate 500 MG Tablet PO SCH ×2 (09:54→21:54)
[2018-01-08] MEDS: Calcitriol 0.25 MCG Capsule PO SCH (09:54)
[2018-01-08] MEDS: Isosorbide Mononitrate 30 MG ER 24HR Tablet (Imdur) PO SCH (09:54)
[2018-01-08] MEDS: Finasteride 5 MG Tablet PO SCH (09:55)
--- NOTE | 2018-01-08 10:03 | MB ---
cc: Jone Gray MD DATE: 01/08/2018 REASON FOR CONSULTATION: Treatment of CHF. HISTORY OF PRESENT ILLNESS: Joselito Olson is a 77-year-old man previously known to me with a cardiomyopathy and CHF. He was hospitalized about a year ago. At that time, he had gross anasarca and he was aggressively diuresed and CHF was brought under control. He has developed progressive fluid retention and severe shortness of breath. I got a message from Dr. Pro and was out on vacation that he need to be seen urgently. I saw him in the office yesterday and it was obvious he was in a decompensated state. He has got an effusion occupying about a third of his left chest and he has anasarca up to the groin. He has been managed with Bumex varying between 1 mg twice and once a day and apparently, this has not held him and he has gradually developed worsening heart failure. He has chronic atrial fibrillation. He has a previous intracranial hemorrhage, which has left him quite debilitated and he is not on anticoagulation because of the previous intracranial hemorrhage. Despite his debilitated state, he has an adequate quality of life and family would like to try to see if he could be improved upon, so I advised to come to the ER to be admitted. He has been started on IV Bumex. The patient has shortness of breath, worse when he is supine. He does not have any anginal type pain. PAST MEDICAL HISTORY: Includes cardiomyopathy, severely impaired LV function, previous CVA, intracranial hemorrhage, diabetes, previous kidney transplant, renal osteodystrophy, and angioma. PAST SURGICAL HISTORY: Includes parathyroidectomy, eye surgery, previous cardiac catheterization, a kidney transplant, previous bypass surgery x 5. FAMILY HISTORY: Positive for heart disease. SOCIAL HISTORY: He never smoked. MEDICATIONS PRIOR TO ADMISSION: Included Bumex and Imdur 30 mg daily. He was not on a beta keya which he had been on previously at one point. REVIEW OF SYSTEMS: Noncontributory. PHYSICAL EXAMINATION: GENERAL: Reveals a debilitated-appearing white male, resting supine, does not appear to be in acute distress. VITAL SIGNS: Charted. His heart rate is mildly elevated. It is getting up over 100 at times. HEENT: Otherwise unremarkable. NECK: Shows CVP is mildly elevated. CHEST: Shows dullness and absent breath sounds a third of the way up on the left chest. CARDIAC: Shows displaced PMI. First and second heart sounds are regular rate and rhythm. There is an S3 gallop, Cannot appreciate a murmur. ABDOMEN: Soft, nontender. EXTREMITIES: Show hard edema up to the upper thighs. DIAGNOSTIC STUDIES: His EKG shows a left bundle branch block and atrial fibrillation. His laboratories are charted. BUN is 30 with a creatinine of 1.57, hematocrit is 46.6. Chest x-ray shows pleural effusions, new since 09/26/2017, appears to be about a third of the way up on my view on the left side. Troponin is mildly elevated, but there are no anginal symptoms. IMPRESSION: [id number] congestive heart failure. He has anasarca with left pleural effusion. He has failed outpatient management. PLAN: I would like to get radiology to do a therapeutic thoracentesis of the effusion in the left chest. He has been started on intravenous Bumex b.i.d. I am going to adjust his potassium supplements because his potassium is a little bit low at this point. I am going to add a very low dose of metoprolol because the ventricular rate is mildly elevated, might give some consideration to a biventricular pacing device to improve his function, but I would like to get him more stable first. Further therapy to be determined. MD MONIK Bassett/FARHAD , 09:38 AM , 09:49 AM
[2018-01-08] MEDS: Ciprofloxacin 500 MG Tablet PO SCH ×2 (12:17→21:53)
--- NOTE | 2018-01-08 13:46 | XR ---
EXAM DATE: 01/08/2018 1:42 PM EDT AGE/SEX: 77 years / Male INDICATIONS: Status post left thoracentesis. CLINICAL DATA: This is the patient's subsequent encounter. Patient reports that signs and symptoms h ave been present for 2 days and indicates a pain score of 0/10. MEDICAL/SURGICAL HISTORY: Diabetes mellitus type II. Non-responsive. COMPARISON: [facility] [place], CHEST 2V PA&LAT, 01/07/2018. . FINDINGS: A single frontal expiratory view of the chest was performed. No pneumothorax following thoracentesis. Minimal basilar atelectasis bilaterally secondary to the expiration view. Tiny bilateral pleural eff usions remain. Parts mildly enlarged. Median sternotomy wires noted. CONCLUSION: No pneumothorax. Electronically signed by: Jesus Joseph MD 01/08/2018 1:45 PM EDT
--- NOTE | 2018-01-08 14:03 | P.PN ---
Subjective Interval history: evaluated in the presence of pt. lethargic, awakes to voice, states he is tired, difficult to obtain any information no fever overnight has a condom cath, making urine leg swelling slightly improved per , Dr. Owen had recently evaluated and had scheduled left TC for tomorrow pt. was agitated last night, refusing care. Per , has early dementia, sometime he is agitated. 12 point ros limited, pt. lethargic. negative except as noted above Physical Exam Vital signs: Vital Signs 01/07/18 16:32 01/07/18 17:57 01/07/18 18:04 Temperature 98.3 F Pulse Rate 92 H 80 Respiratory Rate 20 19 Blood Pressure 103/53 L 96/55 L Pulse Oximetry 94 L 89 L 100 01/07/18 20:07 01/07/18 23:54 01/08/18 00:58 Temperature 98.4 F Pulse Rate 83 90 Respiratory Rate 19 17 18 Blood Pressure 119/60 106/53 L Pulse Oximetry 99 97 01/08/18 03:26 01/08/18 07:16 01/08/18 12:01 Temperature 98.2 F 97.7 F 97.1 F L Pulse Rate 107 H 109 H 105 H Respiratory Rate 17 18 16 Blood Pressure 115/74 103/59 L 129/66 Pulse Oximetry 97 98 100 01/08/18 12:40 01/08/18 13:06 01/08/18 13:36 Temperature 97.4 F L 97.8 F Pulse Rate 114 H 114 H 114 H Respiratory Rate 24 22 22 Blood Pressure 115/72 110/70 112/66 Pulse Oximetry 96 97 99 Intake & Output 01/07/18 01/08/18 01/08/18 18:59 06:59 18:59 Weight 76.204 kg Narrative: GENERAL: Elderly, frail-appearing male. SKIN: Raised, ulcerated lesion to the left upper chest wall. HEAD: Atraumatic. Normocephalic. Bitemporal muscle wasting EYES: Pupils equal and round. No scleral icterus. No injection or drainage. ENT: No nasal bleeding or discharge. Mucous membranes pink and moist. NECK: Trachea midline. No JVD. CARDIOVASCULAR: S1-S2, unable to detect any murmurs rubs or gallops. RESPIRATORY: Diminished, poor inspiratory effort GASTROINTESTINAL: Abdomen soft, non-tender, nondistended. Hepatic and splenic margins not palpable. MUSCULOSKELETAL: Extremities without clubbing, cyanosis. Bilateral lower extremities with 1+ edema, up to thighs, mild erythema noted. Pedal pulses +1. NEUROLOGICAL: Awakes to voice, oriented to self, place others. Follow simple commands. Lethargic. Nonfocal PSYCHIATRIC: Difficult to assess Results - Labs CBC & Chem 7: 01/07/18 18:19 01/08/18 01:52 Laboratory Results - last 24 hr 01/07/18 01/07/18 01/07/18 18:19 18:19 18:19 WBC 6.0 RBC 5.52 Hgb 15.1 Hct 46.6 MCV 84.3 MCH 27.3 MCHC 32.4 RDW 17.7 H Plt Count 120 L MPV 9.0 Neut % (Auto) 68.7 Lymph % (Auto) 13.0 [place] % (Auto) 17.4 H Eos % (Auto) 0.4 Baso % (Auto) 0.5 Neut # (Auto) 4.1 Lymph # (Auto) 0.8 L [place] # (Auto) 1.0 H Eos # (Auto) 0.0 Baso # (Auto) 0.0 WBC Differential . Differential Comment Auto diff final Puncture Site Patient Temperature O2 Saturation ABG pH ABG pCO2 ABG pO2 ABG HCO3 ABG O2 Content ABG Base Excess ABG Methemoglobin Edy Test Hemoglobin Carboxyhemoglobin O2 Delivery Device Liter Flow Critical Value Sodium 142 Potassium 3.2 L Chloride 93 L Carbon Dioxide 41.1 H Anion Gap 8 BUN 27 H Creatinine 1.55 H Estimated GFR 44 L POC Glucose Random Glucose 147 H Calcium 9.9 Total Bilirubin 1.0 AST 25 ALT 19 Alkaline Phosphatase 111 Troponin I 0.32 H B-Natriuretic Peptide 561 H Total Protein 6.0 L Albumin 2.6 L 01/07/18 01/08/18 01/08/18 18:59 01:52 08:37 WBC RBC Hgb Hct MCV MCH MCHC RDW Plt Count MPV Neut % (Auto) Lymph % (Auto) [place] % (Auto) Eos % (Auto) Baso % (Auto) Neut # (Auto) Lymph # (Auto) [place] # (Auto) Eos # (Auto) Baso # (Auto) WBC Differential Differential Comment Puncture Site Left radial Patient Temperature 98.6 O2 Saturation 96 ABG pH 7.50 H ABG pCO2 57 H* ABG pO2 110 ABG HCO3 44 H ABG O2 Content 19.6 ABG Base Excess 18.8 H ABG Methemoglobin 0.5 Edy Test Present Hemoglobin 14.4 Carboxyhemoglobin 1.9 O2 Delivery Device Nasal cannula Liter Flow 2.00 Critical Value Yes Sodium 142 Potassium 3.5 Chloride 96 L Carbon Dioxide Greater than 45.0 H Anion Gap 1 L BUN 30 H Creatinine 1.57 H Estimated GFR 43 L POC Glucose Random Glucose 166 H Calcium 9.3 Total Bilirubin AST ALT Alkaline Phosphatase Troponin I 0.23 H 0.18 H B-Natriuretic Peptide Total Protein Albumin 01/08/18 09:51 WBC RBC Hgb Hct MCV MCH MCHC RDW Plt Count MPV Neut % (Auto) Lymph % (Auto) [place] % (Auto) Eos % (Auto) Baso % (Auto) Neut # (Auto) Lymph # (Auto) [place] # (Auto) Eos # (Auto) Baso # (Auto) WBC Differential Differential Comment Puncture Site Patient Temperature O2 Saturation ABG pH ABG pCO2 ABG pO2 ABG HCO3 ABG O2 Content ABG Base Excess ABG Methemoglobin Edy Test Hemoglobin Carboxyhemoglobin O2 Delivery Device Liter Flow Critical Value Sodium Potassium Chloride Carbon Dioxide Anion Gap BUN Creatinine Estimated GFR POC Glucose 155 H Random Glucose Calcium Total Bilirubin AST ALT Alkaline Phosphatase Troponin I B-Natriuretic Peptide Total Protein Albumin - Imaging Impressions Chest X-Ray 01/07/18 16:41 CONCLUSION: Small bilateral pleural effusions, left greater than right. Mild cardiomegaly. Previous sternotomy. Assessment and Plan - Assessment (1) Acute on chronic congestive heart failure Code(s): I50.9 - Heart failure, unspecified Status: Acute (2) Skin lesion Code(s): L98.9 - Disorder of the skin and subcutaneous tissue, unspecified Status: Chronic (3) Dementia Code(s): F03.90 - Unspecified dementia without behavioral disturbance Status: Chronic (4) Hx of kidney transplant Code(s): Z94.0 - Kidney transplant status Status: Chronic (5) CKD (chronic kidney disease) stage 3, GFR 30-59 ml/min Code(s): N18.3 - Chronic kidney disease, stage 3 (moderate) Status: Chronic (6) Elevated troponin Code(s): R74.8 - Abnormal levels of other serum enzymes Status: Acute (7) Pleural effusion, left Code(s): J90 - Pleural effusion, not elsewhere classified Status: Acute (8) Diabetes 1.5, managed as type 2 Code(s): E10.9 - Type 1 diabetes mellitus without complications Status: Chronic (9) Cardiomyopathy Code(s): I42.9 - Cardiomyopathy, unspecified Status: Chronic (10) History of CVA (cerebrovascular accident) Code(s): Z86.73 - Personal history of transient ischemic attack (TIA), and cerebral infarction without residual deficits Status: Chronic (11) Atrial fibrillation Code(s): I48.91 - Unspecified atrial fibrillation Status: Chronic - Plan Assessment/plan: 77-year-old male with a past medical history significant for CAD, CHF, history of CVA, diabetes mellitus and kidney disease status post renal transplant presents to the emergency department after being sent by his triple valve tester for acute CHF exacerbation. The patient has been working with his head greenskeeper on diuresis. His head greenskeeper, Dr. Pro, sent him to his triple valve tester for further evaluation. Acute on chronic CHF exacerbation. Had recent echocardiogram September 18, EF 20-35 %. Cardiomyopathy -Continue with IV Bumex 1 mg BID -cardiology consultation -Strict intake and output -Cardiac telemetry monitoring -Replace electrolytes as needed Left pleural effusion -Pulmonology consultation, will need thoracentesis -Continue with IV Bumex Chronic kidney disease stage III status post renal transplantation. Patient not on any immunosuppressant therapy -Nephrology consultation Diabetes mellitus II -Accu-Cheks before meals and at bedtime with sliding-scale insulin -Carb controlled diet Atrial fibrillation, heart rate elevated 100 -We will add metoprolol 12.5 mg p.o. twice daily -Cardiology consultation Elevated troponin, in the setting of chronic kidney disease and acute CHF History of CAD -Continue with Imdur, BB -Cardiology consultation Early dementia, occasional agitation -Reorient frequently -will need outpatient follow-up with PCP. 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 Pt. was referred by PCP to derm but has not followed up due to fluid overload -d/w , will need OP follow up with derm for proper diagnosis. Recent UTI, hx of enlarged prostrate and previous UTI. -resume Cipro, to finish tomorrow -will check UA/UC Medications reviewed, initiated as indicated Condition guarded SCDs for DVT prophylaxis, no anticoagulation secondary to brain bleed PT evaluation. Plan of care discussed with patient and , further management of the patient will be dependent on the hospital course (1) Acute on chronic congestive heart failure Qualifiers: Heart failure type: systolic Qualified Code(s): I50.23 - Acute on chronic systolic (congestive) heart failure (3) Dementia Qualifiers: Dementia type: unspecified type Dementia behavioral disturbance: with behavioral disturbance Qualified Code(s): F03.91 - Unspecified dementia with behavioral disturbance (9) Cardiomyopathy Qualifiers: Cardiomyopathy type: other Qualified Code(s): I42.8 - Other cardiomyopathies (11) Atrial fibrillation Qualifiers: Atrial fibrillation type: chronic Qualified Code(s): I48.2 - Chronic atrial fibrillation
--- NOTE | 2018-01-08 14:46 | US ---
EXAM DATE: 01/08/2018 2:38 PM EDT AGE/SEX: 77 years / Male INDICATIONS: Left pleural effusion. CLINICAL DATA: This is the patient's subsequent encounter. Patient reports that signs and symptoms h ave been present for 4 - 6 months and indicates a pain score of 0/10. MEDICAL/SURGICAL HISTORY: Congestive heart failure. Coronary artery disease. Cerebral vascular accident. Diabetes. Hemangioma. Renal osteodystrophy. CABG. Parathyroidectomy. Cardiac catheter. Kid harleen transplant. COMPARISON: [facility] – [place], CHEST EXPIRATION ONLY, 01/08/2018. . FLUID: Total volume of 1600 cc of clear, yellow fluid was removed. Fluid was sent to lab for ordered studies. . . TECHNIQUE: Ultrasound guidance for thoracentesis. Thoracentesis. The risks, benefits, and alternatives to ultrasound guided thoracentesis were explained to the patien t in lay simple terms, including the risk of bleeding and infection. Written and verbal informed con sent was obtained. Appropriate area for left thoracentesis was marked under ultrasound guidance with the patient in the upright position. Overlying skin was prepped and draped in the usual sterile fashion and with local anesthetic, a dermatotomy was made with an 11 blade scalpel. A 6 Armenian thoracentesis catheter was p laced in the pleural space and fluid was removed. Catheter was then removed and a sterile dressing a pplied. There were no immediate complications. The patient tolerated the procedure well and the left the ultrasound suite in stable condition. Chest radiograph is to be obtained. FINDINGS: After obtaining consent, a left thoracentesis was performed with ultrasound guidance. The patient steve erated the procedure well without complications. CONCLUSION: 1. Successful ultrasound-guided left thoracentesis. Electronically signed by: Dario Downs MD 01/08/2018 2:44 PM EDT
--- NOTE | 2018-01-08 14:52 | P.CONNP ---
History of Present Illness Consult date: 01/08/18 Reason for Consult: Chronic kidney disease, renal transplant. Primary Care Provider: Luis Angel Beasley MD Family Provider: Luis Angel Beasley MD Chief Complaint: Transplant kidney. History of Present Illness: This patient is a 77-year-old male with a history of multiple medical problems including previous end-stage renal disease with subsequent living related donor renal transplant back in 1998. Fortunately the patient did not require immunosuppressive therapy and his transplant clinic is aware of same secondary to graft tolerance. Patient also has a history of dementia, diabetes mellitus and hypertension and severe cardiomyopathy with a 2D echocardiogram revealing an ejection fraction of only 20-25% September 27, 2017. Patient was recently seen in the office with increasing fluid retention. His creatinine level slightly higher than usual baseline at 1.5. It was believed that the patient has developed a cardiorenal syndrome. Patient has also been experiencing increasing debilitation over the last few months with weight loss and wastage of musculature clinically. There has been some difficulty in achieving diuresis related to his azotemia as well as blood pressure. Patient was evaluated by cardiology and it was recommended that he be admitted to try and improve his volume status. Consideration is being given to a biventricular pacer in the hope of improving his cardiac status. Review of Systems unobtainable due to mental status (Patient appears to be somewhat lethargic postthoracentesis. Not in distress) PMFSH - History History Provided By: Significant Other - Medical History Medical History: Medical History (Last Reviewed 01/08/18 @ 08:39 by Ángel Meyer) CAD (coronary artery disease) CHF (congestive heart failure) CVA (cerebral vascular accident) Diabetes Hemangioma SHAUNA (renal osteodystrophy) - Surgical History Surgical History: Surgical History (Last Reviewed 01/08/18 @ 08:39 by Ángel Meyer) H/O parathyroidectomy History of YAG laser capsulotomy of lens History of cardiac cath Kidney transplanted S/P CABG x 5 Status post laser cataract surgery of both eyes - Family History Family History: Family History (Last Updated 01/07/18 @ 22:16 by Vida Holland MD) Other Diabetes - Tobacco History Second Hand Smoke Exposure: No Smoking Status: Never smoker - Alcohol History How Often Do You Have a Drink Containing Alcohol: Never - Substance Use History Substance History: No History of Abuse - Travel History Recent Travel in the [facility] Within the Last 8 Weeks: No Recent Travel Out of the Country Within the Last 8 Weeks: No - Immunization History Tetanus Immunization: Unsure Medications and Allergies Active Medications: Active Medications Hydrocodone Bitart/Acetaminophen ([place] 5/325) 1 tab PO Q4H PRN PRN Reason: PAIN SCALE 1 - 10 Albuterol (*Albuterol Neb Periprocedure Only) 2.5 mg NEB Q4HR NEB PRN PRN Reason: Shortness Of Breath / WheezinG Bethanechol Chloride (Urecholine) 25 mg PO BID [facility] Last Admin: 01/08/18 09:55 Dose: 25 mg Bumetanide (Bumex Inj) 1 mg IV.PUSH BID@0900,1800 [facility] Last Admin: 01/08/18 09:55 Dose: 1 mg Calcitriol (Rocaltrol) 0.25 mcg PO DAILY [facility] Last Admin: 01/08/18 09:54 Dose: 0.25 mcg Ciprofloxacin HCl (Cipro) 500 mg PO BID [facility] Stop: 01/09/18 09:59 Last Admin: 01/08/18 12:17 Dose: 500 mg Dextrose (D50w Vial) 50 ml IV.PUSH UNSCH PRN PRN Reason: PER HYPOGLYCEMIA PROTOCOL Finasteride (Proscar) 5 mg PO DAILY [facility] Last Admin: 01/08/18 09:55 Dose: 5 mg Glucagon (Glucagon Inj) 1 mg OTHER PRN PRN PRN Reason: for Hypoglycemia Protocol Acetazolamide Sodium 250 mg/ (Sodium Chloride) 50 mls @ 100 mls/hr IV.SIG ONCE ONE Stop: 01/08/18 15:02 Insulin Human Regular (Novolin R Correctional Sugar Inj) 0 units SQ ACHS AND 3AM KIAN; Protocol Last Admin: 01/08/18 09:56 Dose: Not Given Isosorbide Mononitrate (Imdur) 30 mg PO DAILY [facility] Last Admin: 01/08/18 09:54 Dose: 30 mg Levetiracetam (Keppra) 500 mg PO Q12H [facility] Last Admin: 01/08/18 09:54 Dose: 500 mg Melatonin (Melatonin) 10 mg PO HS [facility] Last Admin: 01/08/18 01:47 Dose: Not Given Metoprolol Succinate (Toprol Xl) 25 mg PO DAILY [facility] Last Admin: 01/08/18 12:17 Dose: 25 mg Metoprolol Tartrate (Lopressor) 12.5 mg PO BID [facility] Montelukast Sodium (Singulair) 10 mg PO QPM [facility] Ondansetron HCl (Zofran Odt) 8 mg PO BID PRN PRN Reason: Nausea Potassium Chloride (K-Dur) 20 meq PO TID [facility] Last Admin: 01/08/18 12:16 Dose: 20 meq Sodium Chloride (Ns Flush) 2 ml IV.FLUSH BID [facility] Last Admin: 01/08/18 09:55 Dose: 2 ml Sodium Chloride (Ns Flush) 2 ml IV.FLUSH UNSCH PRN PRN Reason: FLUSH AFTER USING IV ACCESS Allergies Allergy/AdvReac Type Severity Reaction Status Date / Time aspirin Allergy Severe Bleeding Verified 01/07/18 19:19 diclofenac Allergy Severe bleeding Verified 01/07/18 19:19 etodolac Allergy Severe bleeding Verified 01/07/18 19:19 flurbiprofen Allergy Severe bleeding Verified 01/07/18 19:19 haloperidol Allergy Severe Confusion Verified 01/07/18 19:19 ibuprofen Allergy Severe bleeding Verified 01/07/18 19:19 indomethacin Allergy Severe bleeding Verified 01/07/18 19:19 ketoprofen Allergy Severe bleeding Verified 01/07/18 19:19 ketorolac Allergy Severe bleeding Verified 01/07/18 19:19 naproxen Allergy Severe bleeding Verified 01/07/18 19:19 oxaprozin Allergy Severe bleeding Verified 01/07/18 19:19 oxcarbazepine Allergy Severe Bleeding Verified 01/07/18 19:19 Home Medications Medication Instructions Recorded Confirmed Type albuterol sulfate 2.5 mg INHALATION Q4H PRN 01/07/18 01/07/18 History bethanechol chloride 25 mg PO BID 01/07/18 01/07/18 History bumetanide 1 mg PO BID 01/07/18 01/07/18 History calcitriol 0.25 mcg PO DAILY 01/07/18 01/07/18 History calcium carbonate [Calcium 500] 500 mg PO BID 01/07/18 01/07/18 History ciprofloxacin HCl [Cipro] 500 mg PO BID 01/07/18 01/07/18 History finasteride 5 mg PO DAILY 01/07/18 01/07/18 History hydrocodone-acetaminophen 1 tab PO Q4-6H PRN 01/07/18 01/07/18 History isosorbide mononitrate 30 mg PO DAILY 01/07/18 01/07/18 History levetiracetam 500 mg PO Q12H 01/07/18 01/07/18 History magnesium oxide-Mg AA chelate 400 mg PO DAILY 01/07/18 01/07/18 History [Magnesium (oxide/AA chelate)] melatonin 10 mg PO HS 01/07/18 01/07/18 History montelukast 10 mg PO QPM 01/07/18 01/07/18 History ondansetron HCl [Zofran] 8 mg PO BID PRN 01/07/18 01/07/18 History potassium chloride 20 meq PO DAILY 01/07/18 01/07/18 History Exam Vital signs: Vital Signs 01/07/18 16:32 01/07/18 17:57 01/07/18 18:04 Temperature 98.3 F Pulse Rate 92 H 80 Respiratory Rate 20 19 Blood Pressure 103/53 L 96/55 L Pulse Oximetry 94 L 89 L 100 01/07/18 20:07 01/07/18 23:54 01/08/18 00:58 Temperature 98.4 F Pulse Rate 83 90 Respiratory Rate 19 17 18 Blood Pressure 119/60 106/53 L Pulse Oximetry 99 97 01/08/18 03:26 01/08/18 07:16 01/08/18 12:01 Temperature 98.2 F 97.7 F 97.1 F L Pulse Rate 107 H 109 H 105 H Respiratory Rate 17 18 16 Blood Pressure 115/74 103/59 L 129/66 Pulse Oximetry 97 98 100 01/08/18 12:40 01/08/18 13:06 01/08/18 13:36 Temperature 97.4 F L 97.8 F Pulse Rate 114 H 114 H 114 H Respiratory Rate 24 22 22 Blood Pressure 115/72 110/70 112/66 Pulse Oximetry 96 97 99 Intake & Output 01/07/18 01/08/18 01/08/18 18:59 06:59 18:59 Weight 76.204 kg Other: Date of Last Bowel Movement 01/08/18 - Constitutional no acute distress, thin, cachectic, chronically ill appearing, somnolent - Routine Neck Exam Present: trachea midline - Routine Respiratory Exam Present: CTA bilaterally, diminished air movement (In the bases.) - Routine Cardiovascular Exam Present: irregularly irregular - Routine Abdominal Exam Present: soft - Routine Extremities Exam Present: edema (Brawny edema of lower extremities. Pitting.) - Routine Skin Exam Present: intact Results - Lab Results 01/07/18 18:19 01/08/18 01:52 Most recent lab results ABG pH 7.50 (7.380-7.420) H 01/07/18 18:59 ABG pCO2 57 mmHg (38-42) H* 01/07/18 18:59 ABG pO2 110 mmHg (61-120) 01/07/18 18:59 ABG HCO3 44 mmol/L (22-26) H 01/07/18 18:59 Calcium 9.3 mg/dL (8.5-10.1) 01/08/18 01:52 - Image Kidney/bladder ultrasound: pending Assessment and Plan - Assessment (1) Cardiorenal syndrome with renal failure Code(s): I13.10 - Hypertensive heart and chronic kidney disease without heart failure, with stage 1 through stage 4 chronic kidney disease, or unspecified chronic kidney disease; N19 - Unspecified kidney failure Status: Chronic Plan: Cardiology input appreciated. Patient now status post thoracentesis with about 1600 mL removed. Continue bumetanide as ordered by cardiology with monitoring of volume status and electrolytes. As indicated above patient is being considered for biventricular pacer in the hope of improving myocardial function. Given severity of cardiomyopathy patient's increasing debilitation over the last few months I believe his long-term prognosis is guarded at best. (2) Hx of kidney transplant Code(s): Z94.0 - Kidney transplant status Status: Chronic Plan: There has been some slight deterioration of patient's creatinine level recently which I believe is related to cardiorenal syndrome. As indicated above the patient has not required immunosuppressive therapy for many years. He did receive a living related donor kidney transplant thus accounting for graft tolerance. Ultrasound transplant include occult obstruction. (3) CKD (chronic kidney disease) stage 3, GFR 30-59 ml/min Code(s): N18.3 - Chronic kidney disease, stage 3 (moderate) Status: Chronic Plan: Medication should be adjusted for the patient's estimated GFR when indicated. Avoid agents with significant nephrotoxicity including NSAIDs for analgesia, iodine contrast agents if possible. Gadolinium contraindicated if GFR below 30. (4) Metabolic alkalosis Code(s): E87.3 - Alkalosis Status: Acute Plan: Related to her contraction alkalosis. Diamox ordered today. Repeat electrolytes tomorrow. (5) Secondary hyperparathyroidism of renal origin Code(s): N25.81 - Secondary hyperparathyroidism of renal origin Status: Chronic - Plan Continue current dosage of calcitriol. Check PTH level tomorrow.
[2018-01-08 15:52] LABS: Bilirubin,Urine Negative (Negative); Clarity,Urine Clear (Clear); Color,Urine Yellow (Yellw/Straw); Glucose,Urine (UA) 50 mg/dL (Negative); Hyaline Casts,Urine 16 /lpf (0-3); Leukocyte Esterase,Urine Negative (Negative); Nitrite,Urine Negative (Negative); Specific Gravity,Urine 1.009 (1.002-1.035)
[2018-01-08 15:55] LABS: Protein/Creatinine Ratio,Urine 0.28 (0.00-0.14)
[2018-01-08] MEDS ORDERED: acetaZOLAMIDE Inj 250 MG in Sodium Chlor 0.9% Inj 50 ML IV.SIG ONE (16:00)
[2018-01-08 16:21] LABS: Total Protein,Pleural Fluid 1.2 gm/dL
[2018-01-08] MEDS: Montelukast 10 MG Tablet PO SCH (17:55)
--- NOTE | 2018-01-08 21:17 | MB ---
cc: Rahul Owen MD DATE: 01/08/2018 REQUESTING PHYSICIAN: Dr. Niki Herrmann REASON FOR CONSULT: Pleural effusion. HISTORY OF PRESENT ILLNESS: Mr. Olson is a pleasant 77-year-old male who was recently seen in the office with pleural effusion and he was being arranged for an outpatient thoracentesis. He has a history of cardiomyopathy and congestive heart failure and anasarca. He has had worsening of his shortness of breath. Because of worsening of shortness of breath, the patient was brought to the hospital. He had an x-ray done, which showed pleural effusion. He underwent thoracentesis and 1600 mL of fluid was removed and he feels significantly better. Denies any chest pain. No fevers, chills, no night sweats. PAST MEDICAL HISTORY: History of cardiomyopathy, CVA, diabetes mellitus, history of renal transplant, history of malignant looking lesion on the left anterior chest. MEDICATIONS: He is currently taking, 1. Mulino 5/325 mg p.r.n. 2. Albuterol nebulizer treatment. 3. Bumex 1 mg twice a day. 4. Calcitriol 0.25 mg a day. 5. Ciprofloxacin 500 mg twice a day. 6. Finasteride 5 mg a day. 7. Isosorbide 30 mg a day. 8. Levetiracetam 500 mg every 12 hours. 9. Melatonin 10 mg at night. 10. Metoprolol 25 mg a day. 11. Singulair 10 mg a day. ALLERGIES: ALLERGIC TO ASPIRIN, DICLOFENAC, ALLOPURINOL, IBUPROFEN. SURGICAL HISTORY: History of coronary artery disease status post CABG, renal transplant. FAMILY HISTORY: Noncontributory. REVIEW OF SYSTEMS: He feels weak, tired. Denies any weight loss or swelling in his feet. Has history of CVA and intracranial hemorrhage. PHYSICAL EXAMINATION: GENERAL: Reveals a frail, elderly male, mildly short of breath. VITAL SIGNS: Blood pressure 95/53, heart rate 105, respirations 16, temperature 97.6. HEENT: Pupils are equal and reactive. Throat is clear. NECK: Supple. No JVD noted. CHEST: Decreased breath sounds at the bases. HEART: S1, S2 normal. He had a skin lesion in the left anterior chest. ABDOMEN: Benign. EXTREMITIES: 1+ pedal edema. IMPRESSION: 1. Pleural effusion status post thoracentesis. 2. Congestive heart failure. 3. Cardiomyopathy. 4. Status post renal transplant. 5. History of cerebrovascular accident. PLAN: I discussed with the patient and his family. He is feeling significantly better after he has had thoracentesis to monitor the fluid status. He is being diuresed and metoprolol was added. He is stable on room air. Further treatment depend on the course in the hospital. MD CHAI Soto/zacarias , 07:31 PM , 07:41 PM MTDHellen
[2018-01-08] MEDS: Metoprolol Tartrate 25 MG Tablet PO SCH (21:56)
--- NOTE | 2018-01-08 22:11 | US ---
EXAM DATE: 01/08/2018 9:52 PM EDT AGE/SEX: 77 years / Male INDICATIONS: Elevated lab values. CLINICAL DATA: This is the patient's initial encounter. Patient reports that signs and symptoms have been present for 1 day and indicates a pain score of 0/10. MEDICAL/SURGICAL HISTORY: . Congestive heart failure. Coronary artery disease. Cerebral vascula r accident. Diabetes. Hemangioma. Renal osteodystrophy. . CABG. Parathyroidectomy. Cardiac catheter. Kidney transplant. COMPARISON: [facility], US KIDNEY/RENAL/BLADDER, 11/20/2016. [facility], CT ABDOMEN & PELVIS W CONTRAST, 2017. . MEASUREMENTS: Transplant Kidney:__11.5 x 4.5 x 5.8 cm Location:__Right lower quadrant Arcuate Arteries Resistive Index: Upper - 0.72 Mid - 0.80 Lower - 0.72 Main Renal Artery Velocity:__114 Main Renal Vein:__Patent External Iliac Artery Velocity:__64 cm/sec External Iliac Vein:__Patent cm/sec FINDINGS: Transplant Kidney: Normal echotexture and cortical thickness. There is mild hydronephrosis. No stone demonstrated. No perceptible mass. No peritransplant fluid. Urinary Bladder: Within normal limits. CONCLUSION: 1. Mild hydronephrosis and hydroureter of the transplant kidney, etiology uncertain. 2. Borderline to mildly elevated resistive indices concerning for early chronic rejection. Electronically signed by: Mendez Ritter MD 01/08/2018 10:10 PM EDT
--- NOTE | 2018-01-08 22:34 | ECG ---
Date Performed: 01/07/2018 Time Performed: 17:14:15 PTAGE: 77 years EKG: ATRIAL FIBRILLATION MARKED LEFT AXIS DEVIATION LEFT BUNDLE BRANCH BLOCK LATERAL MYOCARDIAL INFARCTION ABNORMAL ECG PREVIOUS TRACING : 09/24/2017 16.25 Since the previous tracing, no significant change noted DOCTOR: Orestes Boykin Interpretating Date/Time 01/08/2018 22:30:43
[2018-01-09] MEDS: Insulin NovoLIN Regular Correctional Sugar Inj SQ SCH ×5 (04:41→21:58)
[2018-01-09] MEDS: Metoprolol Tartrate 25 MG Tablet PO SCH ×2 (08:14→21:57)
--- NOTE | 2018-01-09 08:49 | P.PNNP ---
Subjective Interval history: This patient is a 77-year-old male with a history of multiple medical problems including previous end-stage renal disease with subsequent living related donor renal transplant back in 1998. Fortunately the patient did not require immunosuppressive therapy and his transplant clinic is aware of same secondary to graft tolerance. Patient also has a history of dementia, diabetes mellitus and hypertension and severe cardiomyopathy with a 2D echocardiogram revealing an ejection fraction of only 20-25% September 27, 2017. Patient was recently seen in the office with increasing fluid retention. His creatinine level slightly higher than usual baseline at 1.5. It was believed that the patient has developed a cardiorenal syndrome. Patient has also been experiencing increasing debilitation over the last few months with weight loss and wastage of musculature clinically. There has been some difficulty in achieving diuresis related to his azotemia as well as blood pressure. Patient was evaluated by cardiology and it was recommended that he be admitted to try and improve his volume status. Consideration is being given to a biventricular pacer in the hope of improving his cardiac status. 01/09/18 Pt seen sitting up in chair. Wide present in room. Reports decent diuresis overnight at 900mL however only 425mL was documented. The patient himself says he is feeling better after thoracentesis. <Sarah Carbajal - Last Filed: 01/09/18 15:56> Physical Exam Vital signs: Vital Signs 01/08/18 12:01 01/08/18 12:40 01/08/18 13:06 Temperature 97.1 F L 97.4 F L Pulse Rate 105 H 114 H 114 H Respiratory Rate 16 24 22 Blood Pressure 129/66 115/72 110/70 Pulse Oximetry 100 96 97 01/08/18 13:36 01/08/18 16:00 01/08/18 19:39 Temperature 97.8 F 97.6 F 98.5 F Pulse Rate 114 H 105 H 94 H Respiratory Rate 22 16 17 Blood Pressure 112/66 95/53 L 91/50 L Pulse Oximetry 99 95 94 L 01/09/18 00:00 01/09/18 04:00 01/09/18 07:59 Temperature 98.1 F 98.4 F 97.6 F Pulse Rate 91 H 89 107 H Respiratory Rate 17 17 16 Blood Pressure 87/50 L 108/50 L 92/53 L Pulse Oximetry 94 L 95 93 L Intake & Output 01/08/18 01/09/18 01/09/18 18:59 06:59 18:59 Intake Total 50 / 50 Output Total 425 / 425 Balance -375 / -375 Intake: IV 50 / 50 Diamox Inj 250 MG In NS Inj 50 50 / 50 ML @ 100 mls/hr IV.SIG ONCE ONE Rx#:[id number] Output: Urine 425 / 425 Other: Date of Last Bowel Movement 01/08/18 # Bowel Movements 1 1 - Constitutional no acute distress, cachectic, chronically ill appearing - Routine Neck Exam Present: supple - Routine Respiratory Exam Present: distant breath sounds, diminished air movement - Routine Cardiovascular Exam Present: irregularly irregular - Routine Abdominal Exam Present: soft - Routine Extremities Exam Present: edema (brawny edema present BLE to hips. trace edema in BUE) - Routine Neurological Exam Present: alert - Urinary Catheter Management Indwelling Urethral Catheter Cath placed during this visit: yes Reason for continuing: Acute urinary retention Insertion date: 01/09/18 Insertion time: 13:17 <Sarah Carbajal - Last Filed: 01/09/18 15:56> Vital signs: Vital Signs 01/09/18 17:00 01/09/18 19:20 01/09/18 20:29 Temperature 97.4 F L 97.3 F L Pulse Rate 99 H 90 Respiratory Rate 18 18 Blood Pressure 91/59 L 113/51 L Pulse Oximetry 99 100 95 01/10/18 00:00 01/10/18 04:00 01/10/18 07:18 Temperature 98.8 F Pulse Rate 104 H 98 H Respiratory Rate 20 18 Blood Pressure 110/58 L 98/58 L Pulse Oximetry 92 L 98 01/10/18 12:00 Temperature 95.5 F L Pulse Rate 85 Respiratory Rate 14 Blood Pressure 102/62 Pulse Oximetry 96 Intake & Output 01/09/18 01/10/18 01/10/18 18:59 06:59 18:59 Output Total 2325 / 2325 Balance -2324 / -2324 Output: Urine Amount (Catheter) 2324 / 2325 Indwelling Urethral Catheter 2324 / 2324 Other: Date of Last Bowel Movement 01/09/18 01/09/18 01/09/18 - Urinary Catheter Management Indwelling Urethral Catheter Cath placed during this visit: no <Andres Pro - Last Filed: 01/10/18 16:15> Assessment and Plan - Assessment (1) Cardiorenal syndrome with renal failure Code(s): I13.10 - Hypertensive heart and chronic kidney disease without heart failure, with stage 1 through stage 4 chronic kidney disease, or unspecified chronic kidney disease; N19 - Unspecified kidney failure Status: Chronic Plan: Renal functions overall stable today. To continue on IV Bumex as ordered by cardiology. Contraction alkalosis improved. Given relatively low BP, will defer another dose of Diamox today and reassess tomorrow. Reviewed US showing mild hydronephrosis and hydroureter. Will change condom cath to indwelling Mackenzie cath. Per , has hx of urethral stricture about 2 years ago and was previously following with Dr. Lee. Consider urological consult if this does not improve. Continue to monitor I&Os As indicated above patient is being considered for biventricular pacer in the hope of improving myocardial function. Given severity of cardiomyopathy patient's increasing debilitation over the last few months I believe his long-term prognosis is guarded at best. (2) Hx of kidney transplant Code(s): Z94.0 - Kidney transplant status Status: Chronic Plan: Patient has not required immunosuppressive therapy for many years. He did receive a living related donor kidney transplant thus accounting for graft tolerance. As above. (3) CKD (chronic kidney disease) stage 3, GFR 30-59 ml/min Code(s): N18.3 - Chronic kidney disease, stage 3 (moderate) Status: Chronic Plan: Medication should be adjusted for the patient's estimated GFR when indicated. Avoid agents with significant nephrotoxicity including NSAIDs for analgesia, iodine contrast agents if possible. Gadolinium contraindicated if GFR below 30. (4) Metabolic alkalosis Code(s): E87.3 - Alkalosis Status: Acute Plan: Improved. (5) Secondary hyperparathyroidism of renal origin Code(s): N25.81 - Secondary hyperparathyroidism of renal origin Status: Chronic Plan: Calcium within acceptable range. s/p parathyroidectomy in the past. Continue on Calcitriol as before. - Plan Continue current dosage of calcitriol. Check PTH level tomorrow. <Sarah Carbajal - Last Filed: 01/09/18 15:56> - Assessment (1) Cardiorenal syndrome with renal failure Code(s): I13.10 - Hypertensive heart and chronic kidney disease without heart failure, with stage 1 through stage 4 chronic kidney disease, or unspecified chronic kidney disease; N19 - Unspecified kidney failure Status: Chronic (2) Hx of kidney transplant Code(s): Z94.0 - Kidney transplant status Status: Chronic (3) CKD (chronic kidney disease) stage 3, GFR 30-59 ml/min Code(s): N18.3 - Chronic kidney disease, stage 3 (moderate) Status: Chronic (4) Metabolic alkalosis Code(s): E87.3 - Alkalosis Status: Acute (5) Secondary hyperparathyroidism of renal origin Code(s): N25.81 - Secondary hyperparathyroidism of renal origin Status: Chronic - Attending Attestation The exam, history, and the medical decision-making described in the above note were completed with the assistance of the RUSTY. I reviewed and agree with the findings presented. <Andres Pro - Last Filed: 01/10/18 16:15>
[2018-01-09] MEDS: Ciprofloxacin 500 MG Tablet PO SCH (09:44)
[2018-01-09] MEDS: levETIRAcetam 500 MG Tablet PO SCH ×2 (09:44→21:57)
[2018-01-09] MEDS: Calcitriol 0.25 MCG Capsule PO SCH (09:44)
[2018-01-09] MEDS: Isosorbide Mononitrate 30 MG ER 24HR Tablet (Imdur) PO SCH (09:44)
[2018-01-09] MEDS: Finasteride 5 MG Tablet PO SCH (09:44)
[2018-01-09] MEDS: Calcium Carbonate 500 MG Tablet PO SCH ×2 (09:44→21:57)
[2018-01-09 09:56] LABS: Albumin 2.4 g/dL (3.4-5.0); Calcium 9.5 mg/dL (8.5-10.1); Carbon Dioxide 38.3 meq/L (21.0-32.0); Magnesium 1.8 mg/dL (1.5-2.5); Potassium 3.4 meq/L (3.5-5.1)
[2018-01-09 09:57] LABS: Phosphorus 3.1 mg/dL (2.5-4.9)
--- NOTE | 2018-01-09 14:23 | P.PNCA ---
Subjective Interval history: less SOB Physical Exam Vital signs: Vital Signs 01/08/18 16:00 01/08/18 19:39 01/09/18 00:00 Temperature 97.6 F 98.5 F 98.1 F Pulse Rate 105 H 94 H 91 H Respiratory Rate 16 17 17 Blood Pressure 95/53 L 91/50 L 87/50 L Pulse Oximetry 95 94 L 94 L 01/09/18 04:00 01/09/18 07:59 01/09/18 12:00 Temperature 98.4 F 97.6 F 97.6 F Pulse Rate 89 107 H 82 Respiratory Rate 17 16 20 Blood Pressure 108/50 L 92/53 L 89/56 L Pulse Oximetry 95 93 L 90 L Intake & Output 01/08/18 01/09/18 01/09/18 18:59 06:59 18:59 Intake Total 50 / 50 Output Total 425 / 425 325 / 325 Balance -375 / -375 -325 / -325 Intake: IV 50 / 50 Diamox Inj 250 MG In NS Inj 50 50 / 50 ML @ 100 mls/hr IV.SIG ONCE ONE Rx#:[id number] Output: Urine 425 / 425 Urine Amount (Catheter) 325 / 325 Indwelling Urethral Catheter 325 / 325 Other: Date of Last Bowel Movement 01/08/18 # Bowel Movements 1 1 Narrative: Lethargic/ nonverbal Neck-no discernible JVD Chest diminished CV S1S2 irr irr Edema u8p to thighs but impoved - Urinary Catheter Management Indwelling Urethral Catheter Cath placed during this visit: yes Reason for continuing: Acute urinary retention Insertion date: 01/09/18 Insertion time: 13:17 Assessment and Plan - Assessment (1) Debilitated patient Code(s): R53.81 - Other malaise Status: Acute (2) Left bundle branch block Code(s): I44.7 - Left bundle-branch block, unspecified Status: Acute (3) CAD (coronary artery disease) Code(s): I25.10 - Atherosclerotic heart disease of [place] coronary artery without angina pectoris Status: Acute (4) Acute on chronic congestive heart failure Code(s): I50.9 - Heart failure, unspecified Status: Acute (5) Hx of kidney transplant Code(s): Z94.0 - Kidney transplant status Status: Chronic (6) CKD (chronic kidney disease) stage 3, GFR 30-59 ml/min Code(s): N18.3 - Chronic kidney disease, stage 3 (moderate) Status: Chronic (7) Pleural effusion, left Code(s): J90 - Pleural effusion, not elsewhere classified Status: Acute (8) Atrial fibrillation Code(s): I48.91 - Unspecified atrial fibrillation Status: Chronic - Plan Cont IV diuresis. Will discuss biv pacer with Dr. Schultz (4) Acute on chronic congestive heart failure Qualifiers: Heart failure type: systolic Qualified Code(s): I50.23 - Acute on chronic systolic (congestive) heart failure (8) Atrial fibrillation Qualifiers: Atrial fibrillation type: chronic Qualified Code(s): I48.2 - Chronic atrial fibrillation
--- NOTE | 2018-01-09 15:21 | P.PN ---
Subjective Interval history: Sitting up in chair, more awake, alert oriented 2. Cooperative, no agitation overnight. Leg and thigh swelling much more improved. No chest pain No shortness of breath. Has a dry nonproductive cough. No fever Had left thoracentesis yesterday, 1600 drained at bedside Two-point review of systems completed, negative except as noted above. Limited , dementia Physical Exam Vital signs: Vital Signs 01/08/18 16:00 01/08/18 19:39 01/09/18 00:00 Temperature 97.6 F 98.5 F 98.1 F Pulse Rate 105 H 94 H 91 H Respiratory Rate 16 17 17 Blood Pressure 95/53 L 91/50 L 87/50 L Pulse Oximetry 95 94 L 94 L 01/09/18 04:00 01/09/18 07:59 01/09/18 12:00 Temperature 98.4 F 97.6 F 97.6 F Pulse Rate 89 107 H 82 Respiratory Rate 17 16 20 Blood Pressure 108/50 L 92/53 L 89/56 L Pulse Oximetry 95 93 L 90 L 01/09/18 14:39 Temperature Pulse Rate Respiratory Rate Blood Pressure 89/50 L Pulse Oximetry 100 Intake & Output 01/08/18 01/09/18 01/09/18 18:59 06:59 18:59 Intake Total 50 / 50 Output Total 425 / 425 325 / 325 Balance -375 / -375 -325 / -325 Intake: IV 50 / 50 Diamox Inj 250 MG In NS Inj 50 50 / 50 ML @ 100 mls/hr IV.SIG ONCE ONE Rx#:[id number] Output: Urine 425 / 425 Urine Amount (Catheter) 325 / 325 Indwelling Urethral Catheter 325 / 325 Other: Date of Last Bowel Movement 01/08/18 # Bowel Movements 1 1 Narrative: GENERAL: Elderly, frail-appearing male. SKIN: Raised, ulcerated lesion to the left upper chest wall. HEAD: Atraumatic. Normocephalic. Bitemporal muscle wasting EYES: Pupils equal and round. No scleral icterus. No injection or drainage. ENT: No nasal bleeding or discharge. Mucous membranes pink and moist. NECK: Trachea midline. No JVD. CARDIOVASCULAR: S1-S2, unable to detect any murmurs rubs or gallops. RESPIRATORY: diminished left lower lobe, greater than right GASTROINTESTINAL: Abdomen soft, non-tender, nondistended. Hepatic and splenic margins not palpable. MUSCULOSKELETAL: Extremities without clubbing, cyanosis. Bilateral lower extremities with 1+ edema, up to thighs, mild erythema noted-improved. Pedal pulses +1. NEUROLOGICAL: Awake, alert oriented 2. No focal deficits PSYCHIATRIC: cooperative - Urinary Catheter Management Indwelling Urethral Catheter Cath placed during this visit: yes Reason for continuing: Acute urinary retention Insertion date: 01/09/18 Insertion time: 13:17 Results - Labs CBC & Chem 7: 01/07/18 18:19 01/09/18 08:26 Laboratory Results - last 24 hr 01/08/18 01/08/18 01/08/18 13:30 14:56 14:56 Sodium Potassium Chloride Carbon Dioxide Anion Gap BUN Creatinine Estimated GFR POC Glucose Random Glucose Calcium Phosphorus Magnesium Albumin PTH Intact Urine Color Yellow Urine Clarity Clear Urine pH 6.0 Ur Specific [place] 1.009 Urine Protein Negative Urine Glucose (UA) 50 Urine Ketones Negative Urine Occult Blood Negative Urine Nitrate Negative Urine Bilirubin Negative Urine Urobilinogen Less than 2 Ur Leukocyte Esterase Negative Urine WBC Less than 1 Hyaline Casts 16 Micro UA Comment Culture not ind Urine Culture Comments Culture not ind Ur Random Creatinine 35 U Random Total Protein 9.9 Protein/Creatinin Ratio 0.28 H Pleural Total Protein 1.2 Pleural LDH 52 Pleural Glucose 193 01/08/18 01/08/18 01/09/18 17:53 22:28 08:26 Sodium Potassium Chloride Carbon Dioxide Anion Gap BUN Creatinine Estimated GFR POC Glucose 208 H 199 H Random Glucose Calcium Phosphorus Magnesium Albumin PTH Intact Less than 6.3 L Urine Color Urine Clarity Urine pH Ur Specific [place] Urine Protein Urine Glucose (UA) Urine Ketones Urine Occult Blood Urine Nitrate Urine Bilirubin Urine Urobilinogen Ur Leukocyte Esterase Urine WBC Hyaline Casts Micro UA Comment Urine Culture Comments Ur Random Creatinine U Random Total Protein Protein/Creatinin Ratio Pleural Total Protein Pleural LDH Pleural Glucose 01/09/18 01/09/18 01/09/18 08:26 09:41 14:26 Sodium 142 Potassium 3.4 L Chloride 95 L Carbon Dioxide 38.3 H Anion Gap 9 BUN 31 H Creatinine 1.48 H Estimated GFR 46 L POC Glucose 177 H 164 H Random Glucose 146 H Calcium 9.5 Phosphorus 3.1 Magnesium 1.8 Albumin 2.4 L PTH Intact Urine Color Urine Clarity Urine pH Ur Specific [place] Urine Protein Urine Glucose (UA) Urine Ketones Urine Occult Blood Urine Nitrate Urine Bilirubin Urine Urobilinogen Ur Leukocyte Esterase Urine WBC Hyaline Casts Micro UA Comment Urine Culture Comments Ur Random Creatinine U Random Total Protein Protein/Creatinin Ratio Pleural Total Protein Pleural LDH Pleural Glucose Microbiology 01/08/18 13:30 Fluid - Pleural fluid Gram Stain - Final 01/08/18 13:30 Fluid - Pleural fluid Body Fluid Culture - Preliminary No growth in 24 hours - Imaging Impressions Renal Ultrasound 01/08/18 00:00 CONCLUSION: 1. Mild hydronephrosis and hydroureter of the transplant kidney, etiology uncertain. 2. Borderline to mildly elevated resistive indices concerning for early chronic rejection. Assessment and Plan - Assessment (1) Acute on chronic congestive heart failure Code(s): I50.9 - Heart failure, unspecified Status: Acute (2) Skin lesion Code(s): L98.9 - Disorder of the skin and subcutaneous tissue, unspecified Status: Chronic (3) Dementia Code(s): F03.90 - Unspecified dementia without behavioral disturbance Status: Chronic (4) Hx of kidney transplant Code(s): Z94.0 - Kidney transplant status Status: Chronic (5) CKD (chronic kidney disease) stage 3, GFR 30-59 ml/min Code(s): N18.3 - Chronic kidney disease, stage 3 (moderate) Status: Chronic (6) Elevated troponin Code(s): R74.8 - Abnormal levels of other serum enzymes Status: Acute (7) Pleural effusion, left Code(s): J90 - Pleural effusion, not elsewhere classified Status: Acute (8) Diabetes 1.5, managed as type 2 Code(s): E10.9 - Type 1 diabetes mellitus without complications Status: Chronic (9) Cardiomyopathy Code(s): I42.9 - Cardiomyopathy, unspecified Status: Chronic (10) History of CVA (cerebrovascular accident) Code(s): Z86.73 - Personal history of transient ischemic attack (TIA), and cerebral infarction without residual deficits Status: Chronic (11) Atrial fibrillation Code(s): I48.91 - Unspecified atrial fibrillation Status: Chronic - Plan Assessment/plan: 77-year-old male with a past medical history significant for CAD, CHF, history of CVA, diabetes mellitus and kidney disease status post renal transplant presents to the emergency department after being sent by his veterinary surgery technician for acute CHF exacerbation. The patient has been working with his ladies suit operator on diuresis. His ladies suit operator, Dr. Pro, sent him to his veterinary surgery technician for further evaluation. Acute on chronic CHF exacerbation. Had recent echocardiogram September 18, EF 20-35 %. Cardiomyopathy poss cardiorenal syndrome -Dec. Bumex to 0.5 mg IV BID, BP trending down. -Strict intake and output -Cardiac telemetry monitoring -Replace electrolytes as needed -Cardiology input appreciated, Dr. Gray evaluated; considering BiV pacer. Left pleural effusion -appreciate pulm input -Continue with IV Bumex -S/P US guided TC 01/08 -1600 drained. Follow cytology Chronic kidney disease stage III status post renal transplantation. Patient not on any immunosuppressant therapy -Nephrology input appreciated, d/w Stephanie CARDOZA -renal us results noted, mild hydronephrosis and hydroureter on the left transplanted kidney. -Mackenzie catheter will be inserted to assist with strict I/O. -May need urology evaluation, will continue to evaluate Diabetes mellitus II -Accu-Cheks before meals and at bedtime with sliding-scale insulin -Carb controlled diet Atrial fibrillation, heart rate elevated 100 -Continue metoprolol 12.5 mg p.o. twice daily -Cardiology following Elevated troponin, in the setting of chronic kidney disease and acute CHF History of CAD -Continue with Imdur, BB Early dementia, occasional agitation -Reorient frequently -will need outpatient follow-up with PCP. 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 Pt. was referred by PCP to derm but has not followed up due to fluid overload -d/w , will need OP follow up with derm for proper diagnosis. Recent UTI, hx of enlarged prostrate and previous UTI. -Complete his Cipro today -UA done, no evidence of infection Condition guarded SCDs for DVT prophylaxis, no anticoagulation secondary to brain bleed PT evaluation. Repeat labs in am Plan of care discussed with patient and , further management of the patient will be dependent on the hospital course (1) Acute on chronic congestive heart failure Qualifiers: Heart failure type: systolic Qualified Code(s): I50.23 - Acute on chronic systolic (congestive) heart failure (3) Dementia Qualifiers: Dementia type: unspecified type Dementia behavioral disturbance: with behavioral disturbance Qualified Code(s): F03.91 - Unspecified dementia with behavioral disturbance (9) Cardiomyopathy Qualifiers: Cardiomyopathy type: other Qualified Code(s): I42.8 - Other cardiomyopathies (11) Atrial fibrillation Qualifiers: Atrial fibrillation type: chronic Qualified Code(s): I48.2 - Chronic atrial fibrillation
--- NOTE | 2018-01-09 18:18 | P.PNPL ---
Subjective Interval history: 77 WM with CHF,CMP,Pl eff had TC Pl fluid transudate Breathing better on Supplemental 02 Physical Exam Vital signs: Vital Signs 01/08/18 19:39 01/09/18 00:00 01/09/18 04:00 Temperature 98.5 F 98.1 F 98.4 F Pulse Rate 94 H 91 H 89 Respiratory Rate 17 17 17 Blood Pressure 91/50 L 87/50 L 108/50 L Pulse Oximetry 94 L 94 L 95 01/09/18 07:59 01/09/18 12:00 01/09/18 14:39 Temperature 97.6 F 97.6 F Pulse Rate 107 H 82 Respiratory Rate 16 20 Blood Pressure 92/53 L 89/56 L 89/50 L Pulse Oximetry 93 L 90 L 100 01/09/18 17:00 Temperature 97.4 F L Pulse Rate 99 H Respiratory Rate 18 Blood Pressure 91/59 L Pulse Oximetry 99 Intake & Output 01/08/18 01/09/18 01/09/18 18:59 06:59 18:59 Intake Total 50 / 50 Output Total 425 / 425 325 / 325 Balance -375 / -375 -325 / -325 Intake: IV 50 / 50 Diamox Inj 250 MG In NS Inj 50 50 / 50 ML @ 100 mls/hr IV.SIG ONCE ONE Rx#:[id number] Output: Urine 425 / 425 Urine Amount (Catheter) 325 / 325 Indwelling Urethral Catheter 325 / 325 Other: Date of Last Bowel Movement 01/08/18 # Bowel Movements 1 1 GENERAL: Frail elderly Wm, NAD SKIN: Warm and dry. HEAD: Normocephalic. EYES: No scleral icterus. No injection or drainage. NECK: Supple, trachea midline. No JVD or lymphadenopathy. CARDIOVASCULAR: Regular rate and rhythm without murmurs, gallops, or rubs. RESPIRATORY: Breath sounds equal bilaterally. No accessory muscle use. bilat rales GASTROINTESTINAL: Abdomen soft, non-tender, nondistended. MUSCULOSKELETAL: No cyanosis, + edema. BACK: Nontender without obvious deformity. No CVA tenderness. - Urinary Catheter Management Indwelling Urethral Catheter Cath placed during this visit: yes Reason for continuing: Acute urinary retention Insertion date: 01/09/18 Insertion time: 13:17 Assessment and Plan - Plan IMPRESSION: 1. Pleural effusion status post thoracentesis. 2. Congestive heart failure. 3. Cardiomyopathy. 4. Status post renal transplant. 5. History of cerebrovascular accident. PLAN: Diurease With Bumex Aerosol nebs Supplement 02 monitor Lytes Keppra 500 mg bid DW family at BS.
[2018-01-09] MEDS: Montelukast 10 MG Tablet PO SCH (18:52)
[2018-01-09] MEDS: Melatonin 5 MG Tablet PO SCH (21:59)
[2018-01-10] MEDS: Insulin NovoLIN Regular Correctional Sugar Inj SQ SCH ×5 (03:52→23:06)
[2018-01-10 07:40] LABS: Baso % (Auto) 0.2 % (0.0-2.0); Eos # (Auto) 0.1 th/mm3 (0.0-0.4); Eos % (Auto) 0.7 % (0.0-4.0); Hematocrit 42.5 % (39.0-51.0); Lymph # (Auto) 0.8 th/mm3 (1.0-4.8); Lymph % (Auto) 9.2 % (9.0-44.0); Mean Corpuscular HGB Conc 32.9 % (32.0-36.0); Mean Corpuscular Hemoglobin 27.6 pg (27.0-34.0); Mean Corpuscular Volume 84.1 fL (80.0-100.0); Mean Platelet Volume 9.6 fL (7.0-11.0); Mono # (Auto) 1.2 th/mm3 (0.0-0.9); Mono % (Auto) 14.3 % (0.0-8.0); Neut # (Auto) 6.5 th/mm3 (1.8-7.7); Neut % (Auto) 75.6 % (16.0-70.0); Platelet Count 108 th/mm3 (150-450); Red Blood Count 5.05 mil/mm3 (4.50-5.90); White Blood Count 8.6 th/mm3 (4.0-11.0)
[2018-01-10 08:01] LABS: Albumin 2.2 g/dL (3.4-5.0); Calcium 9.1 mg/dL (8.5-10.1); Carbon Dioxide 39.9 meq/L (21.0-32.0); Phosphorus 2.9 mg/dL (2.5-4.9); Potassium 3.3 meq/L (3.5-5.1)
--- NOTE | 2018-01-10 08:30 | P.PNCA ---
Subjective Interval history: No new complaints Physical Exam Vital signs: Vital Signs 01/09/18 12:00 01/09/18 14:39 01/09/18 17:00 Temperature 97.6 F 97.4 F L Pulse Rate 82 99 H Respiratory Rate 20 18 Blood Pressure 89/56 L 89/50 L 91/59 L Pulse Oximetry 90 L 100 99 01/09/18 19:20 01/09/18 20:29 01/10/18 00:00 Temperature 97.3 F L Pulse Rate 90 Respiratory Rate 18 Blood Pressure 113/51 L 110/58 L Pulse Oximetry 100 95 01/10/18 04:00 01/10/18 07:18 Temperature 98.8 F Pulse Rate 104 H 98 H Respiratory Rate 20 18 Blood Pressure 98/58 L Pulse Oximetry 92 L 98 Intake & Output 01/09/18 01/10/18 01/10/18 18:59 06:59 18:59 Output Total 2325 / 2325 Balance -2325 / -2325 Output: Urine Amount (Catheter) 2325 / 2325 Indwelling Urethral Catheter 2325 / 2325 Other: Date of Last Bowel Movement 01/09/18 01/09/18 01/09/18 Narrative: Awake Chest- diminished, no rales or wheezing CV S1S2 irr, rate slightly up Abd soft Ext: still has severe edema - rawny in the legs K+ low - add spironolactone - Urinary Catheter Management Indwelling Urethral Catheter Cath placed during this visit: yes Reason for continuing: Acute urinary retention Insertion date: 01/09/18 Insertion time: 13:17 Assessment and Plan - Assessment (1) Debilitated patient Code(s): R53.81 - Other malaise Status: Acute (2) Left bundle branch block Code(s): I44.7 - Left bundle-branch block, unspecified Status: Acute Plan: HR too fast for biv pacing (3) CAD (coronary artery disease) Code(s): I25.10 - Atherosclerotic heart disease of [place] coronary artery without angina pectoris Status: Acute Plan: prior CABG. no angina (4) Acute on chronic congestive heart failure Code(s): I50.9 - Heart failure, unspecified Status: Acute Plan: please cont IV diuretics - he is still fluid overloaded (5) Hx of kidney transplant Code(s): Z94.0 - Kidney transplant status Status: Chronic (6) CKD (chronic kidney disease) stage 3, GFR 30-59 ml/min Code(s): N18.3 - Chronic kidney disease, stage 3 (moderate) Status: Chronic (7) Pleural effusion, left Code(s): J90 - Pleural effusion, not elsewhere classified Status: Acute Plan: s/p thoracentesis (8) Atrial fibrillation Code(s): I48.91 - Unspecified atrial fibrillation Status: Chronic Plan: rate is a little fast. Increase metoprolol to 25mg bid - Plan Dr. Stone classification analyst over the weekend (4) Acute on chronic congestive heart failure Qualifiers: Heart failure type: systolic Qualified Code(s): I50.23 - Acute on chronic systolic (congestive) heart failure (8) Atrial fibrillation Qualifiers: Atrial fibrillation type: chronic Qualified Code(s): I48.2 - Chronic atrial fibrillation
[2018-01-10] MEDS: Calcitriol 0.25 MCG Capsule PO SCH (10:00)
[2018-01-10] MEDS: Spironolactone 25 MG Tablet PO SCH (10:00)
[2018-01-10] MEDS: Finasteride 5 MG Tablet PO SCH (10:00)
[2018-01-10] MEDS: Metoprolol Tartrate 25 MG Tablet PO SCH ×2 (10:01→23:01)
[2018-01-10] MEDS: Isosorbide Mononitrate 30 MG ER 24HR Tablet (Imdur) PO SCH (10:02)
[2018-01-10] MEDS: levETIRAcetam 500 MG Tablet PO SCH ×2 (10:04→23:02)
[2018-01-10] MEDS: Calcium Carbonate 500 MG Tablet PO SCH ×2 (10:04→23:02)
--- NOTE | 2018-01-10 10:26 | P.PNIM ---
Subjective Interval history: 77-year-old male with a past medical history significant for CAD, CHF, history of CVA, diabetes mellitus and kidney disease status post renal transplant presents to the emergency department after being sent by his director of casino marketing for exacerbation. The patient has been working with his diamond die driller on diuresis. His diamond die driller, Dr. Pro, sent him to his director of casino marketing for further evaluation today. The patient denies any chest pain. No shortness of breath. He complains of swelling from his feet to his abdomen. 8-8 evaluated in the presence of pt. lethargic, awakes to voice, states he is tired, difficult to obtain any information no fever overnight has a condom cath, making urine leg swelling slightly improved per , Dr. Owen had recently evaluated and had scheduled left TC for tomorrow pt. was agitated last night, refusing care. Per , has early dementia, sometime he is agitated. 8-9 Sitting up in chair, more awake, alert oriented 2. Cooperative, no agitation overnight. Leg and thigh swelling much more improved. No chest pain No shortness of breath. Has a dry nonproductive cough. No fever Had left thoracentesis yesterday, 1600 drained at bedside 8-10 HAS BEEN SEEN BY CARDIOLOGY AND THEY WANT HIM TO BE CONTINUED TO DIURESE XI RN AND PT AND STILL HAS FLUID ON LEGS BL Physical Exam Vital signs: Vital Signs 01/09/18 12:00 01/09/18 14:39 01/09/18 17:00 Temperature 97.6 F 97.4 F L Pulse Rate 82 99 H Respiratory Rate 20 18 Blood Pressure 89/56 L 89/50 L 91/59 L Pulse Oximetry 90 L 100 99 01/09/18 19:20 01/09/18 20:29 01/10/18 00:00 Temperature 97.3 F L Pulse Rate 90 Respiratory Rate 18 Blood Pressure 113/51 L 110/58 L Pulse Oximetry 100 95 01/10/18 04:00 01/10/18 07:18 Temperature 98.8 F Pulse Rate 104 H 98 H Respiratory Rate 20 18 Blood Pressure 98/58 L Pulse Oximetry 92 L 98 Intake & Output 01/09/18 01/10/18 01/10/18 18:59 06:59 18:59 Output Total 2325 / 2325 Balance -2325 / -2325 Output: Urine Amount (Catheter) 2324 Indwelling Urethral Catheter 2324 Other: Date of Last Bowel Movement 01/09/18 01/09/18 01/09/18 Narrative: GENERAL: Awake alert and oriented 2 talkative and cooperative elderly looking male apparently appearing male SKIN: Warm and dry. Raised ulcerated lesion to left upper chest wall HEAD: Atraumatic. Normocephalic. Muscle wasting EYES: Pupils equal and round. No scleral icterus. No injection or drainage. ENT: No nasal bleeding or discharge. Mucous membranes pink and moist. NECK: Trachea midline. No JVD. Supple CARDIOVASCULAR: Regular rate and rhythm. S1-S2 no S3 or S4 RESPIRATORY: No accessory muscle use. Clear to auscultation. Breath sounds equal bilaterally. GASTROINTESTINAL: Abdomen soft, non-tender, nondistended. Hepatic and splenic margins not palpable. MUSCULOSKELETAL: Extremities without clubbing, cyanosis, +2-3 bilateral lower extremity edema brawny. No obvious deformities. NEUROLOGICAL: Awake and alert. No obvious cranial nerve deficits. Motor grossly within normal limits. 4 out of 5 muscle strength in the arms and legs. Normal speech. PSYCHIATRIC: INAppropriate mood and affect; insight and judgment ABnormal. ZAVALA CATHETER IN PLACE - Urinary Catheter Management Indwelling Urethral Catheter Cath placed during this visit: yes Reason for continuing: Acute urinary retention Insertion date: 01/09/18 Insertion time: 13:17 Results - Labs CBC & Chem 7: 01/10/18 06:15 01/10/18 06:12 Laboratory Results - last 24 hr 01/09/18 01/09/18 01/09/18 08:26 14:26 18:51 WBC RBC Hgb Hct MCV MCH MCHC RDW Plt Count MPV Neut % (Auto) Lymph % (Auto) [place] % (Auto) Eos % (Auto) Baso % (Auto) Neut # (Auto) Lymph # (Auto) [place] # (Auto) Eos # (Auto) Baso # (Auto) WBC Differential Differential Comment Sodium Potassium Chloride Carbon Dioxide Anion Gap BUN Creatinine Estimated GFR POC Glucose 164 H 250 H Random Glucose Calcium Phosphorus Albumin PTH Intact Less than 6.3 L 01/09/18 01/10/18 01/10/18 21:50 06:12 06:15 WBC 8.6 RBC 5.05 Hgb 14.0 Hct 42.5 MCV 84.1 MCH 27.6 MCHC 32.9 RDW 18.0 H Plt Count 108 L MPV 9.6 Neut % (Auto) 75.6 H Lymph % (Auto) 9.2 [place] % (Auto) 14.3 H Eos % (Auto) 0.7 Baso % (Auto) 0.2 Neut # (Auto) 6.5 Lymph # (Auto) 0.8 L [place] # (Auto) 1.2 H Eos # (Auto) 0.1 Baso # (Auto) 0.0 WBC Differential . Differential Comment Auto diff final Sodium 142 Potassium 3.3 L Chloride 96 L Carbon Dioxide 39.9 H Anion Gap 6 BUN 34 H Creatinine 1.42 H Estimated GFR 48 L POC Glucose 228 H Random Glucose 192 H Calcium 9.1 Phosphorus 2.9 Albumin 2.2 L PTH Intact 01/10/18 07:36 WBC RBC Hgb Hct MCV MCH MCHC RDW Plt Count MPV Neut % (Auto) Lymph % (Auto) [place] % (Auto) Eos % (Auto) Baso % (Auto) Neut # (Auto) Lymph # (Auto) [place] # (Auto) Eos # (Auto) Baso # (Auto) WBC Differential Differential Comment Sodium Potassium Chloride Carbon Dioxide Anion Gap BUN Creatinine Estimated GFR POC Glucose 188 H Random Glucose Calcium Phosphorus Albumin PTH Intact Microbiology 01/08/18 13:30 Fluid - Pleural fluid Gram Stain - Final 01/08/18 13:30 Fluid - Pleural fluid Body Fluid Culture - Preliminary No growth in 48 hours Assessment and Plan - Assessment (1) Acute on chronic congestive heart failure Code(s): I50.9 - Heart failure, unspecified Status: Acute (2) Skin lesion Code(s): L98.9 - Disorder of the skin and subcutaneous tissue, unspecified Status: Chronic (3) Dementia Code(s): F03.90 - Unspecified dementia without behavioral disturbance Status: Chronic (4) Hx of kidney transplant Code(s): Z94.0 - Kidney transplant status Status: Chronic (5) CKD (chronic kidney disease) stage 3, GFR 30-59 ml/min Code(s): N18.3 - Chronic kidney disease, stage 3 (moderate) Status: Chronic (6) Elevated troponin Code(s): R74.8 - Abnormal levels of other serum enzymes Status: Acute (7) Pleural effusion, left Code(s): J90 - Pleural effusion, not elsewhere classified Status: Acute (8) Diabetes 1.5, managed as type 2 Code(s): E10.9 - Type 1 diabetes mellitus without complications Status: Chronic (9) Cardiomyopathy Code(s): I42.9 - Cardiomyopathy, unspecified Status: Chronic (10) History of CVA (cerebrovascular accident) Code(s): Z86.73 - Personal history of transient ischemic attack (TIA), and cerebral infarction without residual deficits Status: Chronic (11) Atrial fibrillation Code(s): I48.91 - Unspecified atrial fibrillation Status: Chronic - Plan 77-year-old male with a past medical history significant for CAD, CHF, history of CVA, diabetes mellitus and kidney disease status post renal transplant presents to the emergency department after being sent by his director of casino marketing for acute CHF exacerbation. The patient has been working with his diamond die driller on diuresis. His diamond die driller, Dr. Pro, sent him to his director of casino marketing for further evaluation. Acute on chronic CHF exacerbation. Had recent echocardiogram September 18, EF 20-35 %. Cardiomyopathy poss cardiorenal syndrome -May. Bumex to 0.5 mg IV BID, BP trending down. -Strict intake and output -Cardiac telemetry monitoring -Replace electrolytes as needed -Cardiology input appreciated, Dr. Gray evaluated; considering BiV pacer. -- DR AMOS SAID NO TO BIV PACER AT THIS TIME Left pleural effusion -appreciate pulm input -Continue with IV Bumex -S/P US guided TC 01/08 -1600 drained. Follow cytology Chronic kidney disease stage III status post renal transplantation. Patient not on any immunosuppressant therapy -Nephrology input appreciated, d/w Stephanie CARDOZA -renal us results noted, mild hydronephrosis and hydroureter on the left transplanted kidney. -Zavala catheter will be inserted to assist with strict I/O. -May need urology evaluation, will continue to evaluate Diabetes mellitus II -Accu-Cheks before meals and at bedtime with sliding-scale insulin -Carb controlled diet Atrial fibrillation, heart rate elevated 100 -Continue metoprolol 12.5 mg p.o. twice daily -Cardiology following Elevated troponin, in the setting of chronic kidney disease and acute CHF History of CAD -Continue with Imdur, BB Early dementia, occasional agitation -Reorient frequently -will need outpatient follow-up with PCP. 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 Pt. was referred by PCP to derm but has not followed up due to fluid overload -d/w , will need OP follow up with derm for proper diagnosis. Recent UTI, hx of enlarged prostrate and previous UTI. -Complete his Cipro today -UA done, no evidence of infection Condition guarded SCDs for DVT prophylaxis, no anticoagulation secondary to brain bleed PT evaluation. Repeat labs in am Plan of care discussed with patient and , further management of the patient will be dependent on the hospital course WILL GET AM LABS PT AND OT TO EVAL AND TREAT Code Status: Full code Discussed Condition With: RN and patient and and cardiology Discharge Planning: Continue to diurese to get to the dry weight without elevating his BUN and creatinine A.m. labs (1) Acute on chronic congestive heart failure Qualifiers: Heart failure type: systolic Qualified Code(s): I50.23 - Acute on chronic systolic (congestive) heart failure (3) Dementia Qualifiers: Dementia type: unspecified type Dementia behavioral disturbance: with behavioral disturbance Qualified Code(s): F03.91 - Unspecified dementia with behavioral disturbance (9) Cardiomyopathy Qualifiers: Cardiomyopathy type: other Qualified Code(s): I42.8 - Other cardiomyopathies (11) Atrial fibrillation Qualifiers: Atrial fibrillation type: chronic Qualified Code(s): I48.2 - Chronic atrial fibrillation
--- NOTE | 2018-01-10 14:30 | ECG ---
Date Performed: 01/09/2018 Time Performed: 20:32:58 PTAGE: 77 years EKG: ATRIAL FIBRILLATION WITH ABERRANT CONDUCTION OR VENTRICULAR PREMATURE COMPLEXES MARKED LEFT AXIS DEVIATION INTRAVENTRICULAR CONDUCTION DELAY ANTEROLATERAL MYOCARDIAL INFARCTION ABNORMAL ECG Si nce the PREVIOUS TRACING , no significant change noted PREVIOUS TRACING DOCTOR: Canelo Carter Interpretating Date/Time 01/10/2018 14:29:19
--- NOTE | 2018-01-10 16:21 | P.PNNP ---
Subjective Interval history: Patient had no verbal complaints. by bedside. She indicated to me that she was told that the patient is not a candidate for pacemaker placement but she does not know specifically why. Physical Exam Vital signs: Vital Signs 01/09/18 17:00 01/09/18 19:20 01/09/18 20:29 Temperature 97.4 F L 97.3 F L Pulse Rate 99 H 90 Respiratory Rate 18 18 Blood Pressure 91/59 L 113/51 L Pulse Oximetry 99 100 95 01/10/18 00:00 01/10/18 04:00 01/10/18 07:18 Temperature 98.8 F Pulse Rate 104 H 98 H Respiratory Rate 20 18 Blood Pressure 110/58 L 98/58 L Pulse Oximetry 92 L 98 01/10/18 12:00 Temperature 95.5 F L Pulse Rate 85 Respiratory Rate 14 Blood Pressure 102/62 Pulse Oximetry 96 Intake & Output 01/09/18 01/10/18 01/10/18 18:59 06:59 18:59 Output Total 2325 / 2325 Balance -2325 / -2325 Output: Urine Amount (Catheter) 2325 / 2325 Indwelling Urethral Catheter 2325 / 2325 Other: Date of Last Bowel Movement 01/09/18 01/09/18 01/09/18 Narrative: GENERAL: Debilitated appearing gentleman not in respiratory distress lying in bed. Somewhat lethargic but arousable SKIN: Warm and dry. HEAD: Normocephalic. EYES: No scleral icterus. No injection or drainage. NECK: Supple, trachea midline. No JVD or lymphadenopathy. CARDIOVASCULAR: Regular rate and rhythm without murmurs, gallops, or rubs. RESPIRATORY: Breath sounds equal bilaterally. No accessory muscle use. GASTROINTESTINAL: Abdomen soft, non-tender, nondistended. MUSCULOSKELETAL: No cyanosis, 2+ pitting edema lower extremities to the thighs. - Urinary Catheter Management Indwelling Urethral Catheter Cath placed during this visit: yes Reason for continuing: Acute urinary retention Insertion date: 01/09/18 Insertion time: 13:17 Assessment and Plan - Assessment (1) Cardiorenal syndrome with renal failure Code(s): I13.10 - Hypertensive heart and chronic kidney disease without heart failure, with stage 1 through stage 4 chronic kidney disease, or unspecified chronic kidney disease; N19 - Unspecified kidney failure Status: Chronic Plan: Patient's creatinine level is slightly improved today. Continue bumetanide as ordered by cardiology. Uncertain of significance of findings on renal ultrasound. Would recommend opinion from urology regarding whether or not further evaluation and intervention. Urine output however at this time appears to be fairly good. As indicated previously that has been significant decline in the patient's overall condition is lost few months. Long-term prognosis guarded at best in view of this and his severe cardiomyopathy. Given severity of cardiomyopathy patient's increasing debilitation over the last few months I believe his long-term prognosis is guarded at best. (2) Hx of kidney transplant Code(s): Z94.0 - Kidney transplant status Status: Chronic Plan: Patient has not required immunosuppressive therapy for many years. He did receive a living related donor kidney transplant thus accounting for graft tolerance. As above. (3) CKD (chronic kidney disease) stage 3, GFR 30-59 ml/min Code(s): N18.3 - Chronic kidney disease, stage 3 (moderate) Status: Chronic Plan: Patient's renal disease appear to be relatively stable. Nothing new to add from a renal point of view. We will see the patient as needed. Please call if any questions over the weekend. Medication should be adjusted for the patient's estimated GFR when indicated. Avoid agents with significant nephrotoxicity including NSAIDs for analgesia, iodine contrast agents if possible. Gadolinium contraindicated if GFR below 30. (4) Metabolic alkalosis Code(s): E87.3 - Alkalosis Status: Acute Plan: Improved. (5) Secondary hyperparathyroidism of renal origin Code(s): N25.81 - Secondary hyperparathyroidism of renal origin Status: Chronic Plan: Calcium within acceptable range. s/p parathyroidectomy in the past. Continue on Calcitriol as before. - Plan Continue current dosage of calcitriol. Check PTH level tomorrow.
--- NOTE | 2018-01-10 18:39 | P.PNPL ---
Subjective Interval history: 77 WM with CHF,CMP,Pl eff had TC Pl fluid transudate Breathing better on Supplemental 02 Comfortable, up in chair Physical Exam Vital signs: Vital Signs 01/09/18 19:20 01/09/18 20:29 01/10/18 00:00 Temperature 97.3 F L Pulse Rate 90 Respiratory Rate 18 Blood Pressure 113/51 L 110/58 L Pulse Oximetry 100 95 01/10/18 04:00 01/10/18 07:18 01/10/18 12:00 Temperature 98.8 F 95.5 F L Pulse Rate 104 H 98 H 85 Respiratory Rate 20 18 14 Blood Pressure 98/58 L 102/62 Pulse Oximetry 92 L 98 96 01/10/18 16:00 01/10/18 16:35 Temperature 96.2 F L Pulse Rate 86 Respiratory Rate 14 Blood Pressure 94/51 L Pulse Oximetry 90 L 98 Intake & Output 01/09/18 01/10/18 01/10/18 18:59 06:59 18:59 Output Total 2325 / 2325 Balance -2325 / -2325 Output: Urine Amount (Catheter) 2325 / 2325 Indwelling Urethral Catheter 2325 / 2325 Other: Date of Last Bowel Movement 01/09/18 01/09/18 01/09/18 GENERAL: Elderly WM,NAD SKIN: Warm and dry. HEAD: Normocephalic. EYES: No scleral icterus. No injection or drainage. NECK: Supple, trachea midline. No JVD or lymphadenopathy. CARDIOVASCULAR: Regular rate and rhythm without murmurs, gallops, or rubs. RESPIRATORY: Breath sounds equal bilaterally. No accessory muscle use. Basal rales GASTROINTESTINAL: Abdomen soft, non-tender, nondistended. MUSCULOSKELETAL: No cyanosis, or edema. BACK: Nontender without obvious deformity. No CVA tenderness. - Urinary Catheter Management Indwelling Urethral Catheter Cath placed during this visit: yes Reason for continuing: Acute urinary retention Insertion date: 01/09/18 Insertion time: 13:17 Assessment and Plan - Plan IMPRESSION: 1. Pleural effusion status post thoracentesis. 2. Congestive heart failure. 3. Cardiomyopathy. 4. Status post renal transplant. 5. History of cerebrovascular accident. PLAN: Diurease With Bumex Aerosol nebs Supplement 02 monitor Lytes Keppra 500 mg bid DW family at BS. Stable from Pulm standpoint Available prn over weekend.
--- NOTE | 2018-01-10 21:00 | MB ---
cc: Song Hurd MD DATE: 01/10/2018 REASON FOR CONSULTATION: Mild hydronephrosis and transplanted kidney. HISTORY OF PRESENT ILLNESS: The patient is a 77-year-old male with a history of end-stage renal disease, status post living related donor renal transplant back in 1998, who was admitted with a CHF exacerbation. Upon admission, he was found to have slightly deteriorating renal function with a creatinine of 1.6. He had a renal ultrasound performed, which showed mild hydronephrosis and hydroureter down to his bladder on 01/08/2018. He also appeared to have a slightly distended bladder on ultrasound. He subsequently underwent diuresis and had a Mackenzie catheter placed in which he put out over 2 liters of urine. His renal function has subsequently improved down to 1.4. Currently, he denies any pain, fevers, chills, nausea or vomiting. He is a patient who is followed by Dr. Lee but has not seen him in several years because he has been doing so well. However, he does have a history of recurrent urinary tract infections in which he was put on finasteride several years ago. Denies hematuria, dysuria or urinary incontinence. Denies a history of kidney stones. REVIEW OF SYSTEMS: The patient is somewhat lethargic and unable to obtain a full history. PAST MEDICAL HISTORY: Significant for coronary artery disease, CHF, cerebrovascular accident, diabetes, end-stage renal disease. PAST SURGICAL HISTORY: He has had a parathyroidectomy, cardiac catheterization, transplant kidney, status post CABG, cataract surgery in both eyes. FAMILY HISTORY: Denies urolithiasis or genitourinary malignancies. SOCIAL HISTORY: Denies smoking, alcohol or illicit drugs. MEDICATIONS: Include Bumex, bethanechol, Cipro, finasteride, insulin, melatonin, metoprolol, Singulair. PHYSICAL EXAMINATION: VITAL SIGNS: Temperature 96.2, pulse 86, respiratory rate 14, BP 94/51, sat 98% on room air. GENERAL: He is lethargic and sleepy, difficult to arouse, but appears to be in no apparent distress. HEAD: Normocephalic, atraumatic. EYES: No scleral icterus. Extraocular muscles intact. SKIN: No ulcers or rashes. NECK: Supple. Trachea is midline. No JVD. LUNGS: Clear to auscultation bilaterally. HEART: Regular rate and rhythm. No murmur, gallop or rub. ABDOMEN: Soft, nontender, nondistended. Positive bowel sounds. GENITOURINARY: His penis is uncircumcised. Testes descended bilaterally and of normal size and consistency. Mackenzie draining clear yellow urine. EXTREMITIES: Nontender. No clubbing, cyanosis or edema. NEUROLOGIC: Cranial nerves 2-12 intact. MUSCULOSKELETAL: 5/5 in all 4 extremities. LABORATORY DATA: Show sodium 142, potassium 3.3, chloride 96, bicarbonate 39.9, BUN 34, creatinine 1.42, GFR 48, glucose 192. His urine was completely negative. IMAGING STUDIES: Renal ultrasound images were reviewed by myself and agree with the radiologist's report. The patient has mild right hydroureteronephrosis in the transplant graft but also a distended bladder with resistive indices of 0.72 and higher. ASSESSMENT: The patient is a 77-year-old male with a history of end-stage renal disease with mild hydronephrosis in a renal transplant graft, admitted for a congestive heart failure exacerbation. PLAN: Recommend conservative management in lieu his creatinine is slowly improving. It is possible that the mild hydronephrosis was a result of some bladder distention back on the 01/08/2018 prior to having a Mackenzie catheter in place. Recommend discontinuing the Mackenzie catheter once his diuresis is complete. He can then follow up with Dr. Lee as an outpatient. However, if his creatinine does worsen, then he likely will need some type of radiological study to evaluate the renal function with possibly at least a cystogram to rule out obstruction. If the kidney ends being obstructed, then he likely would need a nephrostomy tube be placed and an antegrade nephrostogram in the future, but would only pursue that nature if clinically warranted by the creatinine or if symptoms worsen. MD CIRO Burciaga/eleanor , 06:21 PM , 06:32 PM
[2018-01-10] MEDS: Melatonin 5 MG Tablet PO SCH (23:04)
[2018-01-11] MEDS: Insulin NovoLIN Regular Correctional Sugar Inj SQ SCH ×5 (06:56→22:08)
[2018-01-11] MEDS: Montelukast 10 MG Tablet PO SCH ×2 (07:27→18:27)
[2018-01-11] MEDS: Spironolactone 25 MG Tablet PO SCH (09:15)
[2018-01-11] MEDS: Calcium Carbonate 500 MG Tablet PO SCH ×2 (09:16→21:55)
[2018-01-11] MEDS: Metoprolol Tartrate 25 MG Tablet PO SCH ×3 (09:16→22:11)
[2018-01-11] MEDS: Isosorbide Mononitrate 30 MG ER 24HR Tablet (Imdur) PO SCH (09:16)
[2018-01-11] MEDS: Finasteride 5 MG Tablet PO SCH (09:17)
[2018-01-11] MEDS: levETIRAcetam 500 MG Tablet PO SCH ×2 (09:17→21:55)
[2018-01-11] MEDS: Calcitriol 0.25 MCG Capsule PO SCH (09:17)
[2018-01-11 13:36] LABS: Baso % (Auto) 0.4 % (0.0-2.0); Eos # (Auto) 0.1 th/mm3 (0.0-0.4); Eos % (Auto) 1.9 % (0.0-4.0); Hematocrit 43.7 % (39.0-51.0); Hemoglobin 14.2 gm/dL (13.0-17.0); Lymph % (Auto) 13.7 % (9.0-44.0); Mean Corpuscular HGB Conc 32.5 % (32.0-36.0); Mean Corpuscular Hemoglobin 27.6 pg (27.0-34.0); Mean Corpuscular Volume 84.9 fL (80.0-100.0); Mean Platelet Volume 9.3 fL (7.0-11.0); Mono % (Auto) 13.9 % (0.0-8.0); Neut % (Auto) 70.1 % (16.0-70.0); Platelet Count 113 th/mm3 (150-450); Red Blood Count 5.15 mil/mm3 (4.50-5.90); Red Cell Distribution Width 17.9 % (11.6-17.2); White Blood Count 7.1 th/mm3 (4.0-11.0)
--- NOTE | 2018-01-11 13:43 | P.PN ---
Subjective Interval history: telemetry- HR improves- 80s- 90s- a fib awake and alert seen with family- identified everybody, joked around and appears sharp per daughter- he ate everything-no nausea or vomiting no complains of pain Physical Exam Vital signs: Vital Signs 01/10/18 16:00 01/10/18 16:35 01/10/18 20:00 Temperature 96.2 F L 96.2 F L Pulse Rate 86 80 Respiratory Rate 14 16 Blood Pressure 94/51 L 109/58 L Pulse Oximetry 90 L 98 94 L 01/10/18 22:01 01/11/18 00:00 01/11/18 04:00 Temperature 97.3 F L 97.7 F Pulse Rate 73 76 Respiratory Rate 18 18 Blood Pressure 97/55 L 106/61 Pulse Oximetry 98 100 98 01/11/18 08:00 01/11/18 09:00 01/11/18 12:00 Temperature 97.4 F L Pulse Rate 84 96 H 75 Respiratory Rate 16 Blood Pressure 103/55 L Pulse Oximetry 98 Intake & Output 01/10/18 01/11/18 01/11/18 18:59 06:59 18:59 Output Total 450 / 450 Balance -450 / -450 Weight 79.3 kg Output: Urine 450 / 450 Other: Date of Last Bowel Movement 01/09/18 01/09/18 Narrative: awake and alert,interactive- seen with family at bedside, joking, moves all extremities spontaneously anicteric neck supple lungs- decrease breath sounds, no rales. no wheezes irregularly irregular rhythm- rate controlled- 80 abdomen soft, good bowel sounds extremities- + pretibial edema ( per daughter- swelling much improved) moves all extremities spotnaenously - Urinary Catheter Management Indwelling Urethral Catheter Cath placed during this visit: yes Reason for continuing: Acute urinary retention Insertion date: 01/09/18 Insertion time: 13:17 Results - Labs CBC & Chem 7: 01/11/18 13:03 01/10/18 06:12 Laboratory Results - last 24 hr 01/10/18 01/10/18 01/11/18 17:43 20:30 03:40 WBC RBC Hgb Hct MCV MCH MCHC RDW Plt Count MPV Neut % (Auto) Lymph % (Auto) [place] % (Auto) Eos % (Auto) Baso % (Auto) Neut # (Auto) Lymph # (Auto) [place] # (Auto) Eos # (Auto) Baso # (Auto) WBC Differential Differential Comment POC Glucose 289 H 259 H 184 H 01/11/18 01/11/18 01/11/18 09:13 11:45 13:03 WBC 7.1 RBC 5.15 Hgb 14.2 Hct 43.7 MCV 84.9 MCH 27.6 MCHC 32.5 RDW 17.9 H Plt Count 113 L MPV 9.3 Neut % (Auto) 70.1 H Lymph % (Auto) 13.7 Saunders % (Auto) 13.9 H Eos % (Auto) 1.9 Baso % (Auto) 0.4 Neut # (Auto) 5.0 Lymph # (Auto) 1.0 Saunders # (Auto) 1.0 H Eos # (Auto) 0.1 Baso # (Auto) 0.0 WBC Differential . Differential Comment Auto diff final POC Glucose 122 H 148 H Microbiology 01/08/18 13:30 Fluid - Pleural fluid Gram Stain - Final 01/08/18 13:30 Fluid - Pleural fluid Body Fluid Culture - Final No growth in 72 hours (aerobically and anaerobically ) Assessment and Plan - Assessment (1) Acute on chronic congestive heart failure Code(s): I50.9 - Heart failure, unspecified Status: Acute (2) Skin lesion Code(s): L98.9 - Disorder of the skin and subcutaneous tissue, unspecified Status: Chronic (3) Dementia Code(s): F03.90 - Unspecified dementia without behavioral disturbance Status: Chronic (4) Hx of kidney transplant Code(s): Z94.0 - Kidney transplant status Status: Chronic (5) CKD (chronic kidney disease) stage 3, GFR 30-59 ml/min Code(s): N18.3 - Chronic kidney disease, stage 3 (moderate) Status: Chronic (6) Elevated troponin Code(s): R74.8 - Abnormal levels of other serum enzymes Status: Acute (7) Pleural effusion, left Code(s): J90 - Pleural effusion, not elsewhere classified Status: Acute (8) Diabetes 1.5, managed as type 2 Code(s): E10.9 - Type 1 diabetes mellitus without complications Status: Chronic (9) Cardiomyopathy Code(s): I42.9 - Cardiomyopathy, unspecified Status: Chronic (10) History of CVA (cerebrovascular accident) Code(s): Z86.73 - Personal history of transient ischemic attack (TIA), and cerebral infarction without residual deficits Status: Chronic (11) Atrial fibrillation Code(s): I48.91 - Unspecified atrial fibrillation Status: Chronic - Plan 77-year-old male with a past medical history significant for CAD, CHF, history of CVA, diabetes mellitus and kidney disease status post renal transplant presents to the emergency department after being sent by his heel seat flap stapler for acute CHF exacerbation. 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 His postal service sectional center manager, Dr. Pro, sent him to his heel seat flap stapler for further evaluation. Acute on chronic CHF exacerbation. Had recent echocardiogram September 18, EF 20-35 %. Cardiomyopathy Elevated troponin, in the setting of chronic kidney disease and acute CHF History of CAD Atrial fibrillation, better controlled- rate in the 80s today -Continue metoprolol up to 25 mg po bid 8/10- HR better-continue to monitor -Cardiology following -Continue with Imdur, BB - poss cardiorenal syndrome -On Bumex to 0.5 mg IV BID, creatinine improving -Strict intake and output -Cardiac telemetry monitoring -Replace electrolytes as needed -Cardiology input appreciated, Dr. Gray evaluated; considering BiV pacer. -- DR AMOS SAID NO TO BIV PACER AT THIS TIME Left pleural effusion S/P US guided thoracentesis - 1600 cc drained 01/08- transudate -appreciate pulm input -Continue with IV Bumex - Chronic kidney disease stage III status post renal transplantation. Patient not on any immunosuppressant therapy -Nephrology input appreciated, d/w Stephanie CARDOZA -renal us results noted, mild hydronephrosis and hydroureter on the left transplanted kidney. -Mackenzie catheter will be inserted to assist with strict I/O. -May need urology evaluation, will continue to evaluate Diabetes mellitus II -Accu-Cheks before meals and at bedtime with sliding-scale insulin -Carb controlled diet Early dementia, occasional agitation - on exam- calm and interactive today, joking around, identified all family member, ff commands, po 100% -Reorient frequently -will need outpatient follow-up with PCP. 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 Pt. was referred by PCP to derm but has not followed up due to fluid overload -d/w , will need OP follow up with derm for proper diagnosis. Recent UTI, hx of enlarged prostrate and previous UTI. -S/P Cipro course 01/10 -UA done, no evidence of infection Condition guarded SCDs for DVT prophylaxis, no anticoagulation secondary to brain bleed PT evaluation. Repeat labs in am Plan of care discussed with patient and , further management of the patient will be dependent on the hospital course PT AND OT TO EVAL AND TREAT Code Status: Full code- d/w family- aggressive Discussed Condition With: RN and patient and and cardiology Discharge Planning: Continue to diurese to get to the dry weight without elevating his BUN and creatinine A.m. labs (1) Acute on chronic congestive heart failure Qualifiers: Heart failure type: systolic Qualified Code(s): I50.23 - Acute on chronic systolic (congestive) heart failure (3) Dementia Qualifiers: Dementia type: unspecified type Dementia behavioral disturbance: with behavioral disturbance Qualified Code(s): F03.91 - Unspecified dementia with behavioral disturbance (9) Cardiomyopathy Qualifiers: Cardiomyopathy type: other Qualified Code(s): I42.8 - Other cardiomyopathies (11) Atrial fibrillation Qualifiers: Atrial fibrillation type: chronic Qualified Code(s): I48.2 - Chronic atrial fibrillation
[2018-01-11 13:57] LABS: Albumin 2.2 g/dL (3.4-5.0); Anion Gap 6 meq/L (5-15); Aspartate Aminotransferase 19 U/L (15-37); Blood Urea Nitrogen 36 mg/dL (7-18); Carbon Dioxide 37.9 meq/L (21.0-32.0); Chloride 97 meq/L (98-107); Glomerular Filtration Rate 49 mL/min (>89); Glucose,Random 226 mg/dL (74-106); Magnesium 1.6 mg/dL (1.5-2.5); Potassium 4.1 meq/L (3.5-5.1); Sodium 141 meq/L (136-145)
[2018-01-11 13:58] LABS: Alanine Aminotransferase 13 U/L (12-78)
[2018-01-11 14:26] LABS: Alkaline Phosphatase 98 U/L (45-117); Phosphorus 2.8 mg/dL (2.5-4.9); Total Protein 5.2 g/dL (6.4-8.2)
[2018-01-11] MEDS: Melatonin 5 MG Tablet PO SCH (21:57)
[2018-01-12] MEDS: Melatonin 5 MG Tablet PO SCH ×2 (04:11→21:23)
[2018-01-12] MEDS: Insulin NovoLIN Regular Correctional Sugar Inj SQ SCH ×5 (05:30→21:30)
[2018-01-12] MEDS: Calcitriol 0.25 MCG Capsule PO SCH (09:07)
[2018-01-12] MEDS: levETIRAcetam 500 MG Tablet PO SCH ×2 (09:07→21:23)
[2018-01-12] MEDS: Isosorbide Mononitrate 30 MG ER 24HR Tablet (Imdur) PO SCH (09:07)
[2018-01-12] MEDS: Metoprolol Tartrate 25 MG Tablet PO SCH ×2 (09:07→21:24)
[2018-01-12] MEDS: Finasteride 5 MG Tablet PO SCH (09:07)
[2018-01-12] MEDS: Calcium Carbonate 500 MG Tablet PO SCH ×2 (09:07→21:23)
[2018-01-12] MEDS: Spironolactone 25 MG Tablet PO SCH (09:07)
--- NOTE | 2018-01-12 09:35 | P.PNIM ---
Subjective Interval history: f/u; CHF in no acute distress. however still on two liters of oxygen via [place]. denies chest pain. Physical Exam Vital signs: Vital Signs 01/11/18 12:00 01/11/18 16:00 01/11/18 20:00 Temperature 97.4 F L 98 F 98.2 F Pulse Rate 93 H 90 82 Respiratory Rate 18 18 16 Blood Pressure 105/54 L 106/59 L 109/55 L Pulse Oximetry 95 94 L 94 L 01/12/18 00:00 01/12/18 04:00 01/12/18 08:00 Temperature 97.3 F L 97.5 F L 98 F Pulse Rate 94 H 90 102 H Respiratory Rate 14 14 16 Blood Pressure 123/66 109/52 L 116/56 L Pulse Oximetry 98 98 97 Intake & Output 01/11/18 01/12/18 01/12/18 18:59 06:59 18:59 Intake Total 360 / 360 480 / 480 Output Total 700 / 700 Balance 360 / 360 -220 / -220 Weight 78.8 kg Intake: Oral 360 / 360 480 / 480 Output: Urine 700 / 700 Other: # Voids 450 - Constitutional mild distress - Routine Respiratory Exam Present: CTA bilaterally, diminished air movement - Routine Cardiovascular Exam Present: RRR - Routine Abdominal Exam Present: soft - Routine Extremities Exam Present: edema (bilateral pedal edema.) - Routine Neurological Exam Present: alert, oriented X3 - Urinary Catheter Management Indwelling Urethral Catheter Cath placed during this visit: yes Reason for continuing: Acute urinary retention Insertion date: 01/09/18 Insertion time: 13:17 Results - Labs CBC & Chem 7: 01/11/18 13:03 01/11/18 13:03 Laboratory Results - last 24 hr 01/11/18 01/11/18 01/11/18 11:45 13:03 13:03 WBC 7.1 RBC 5.15 Hgb 14.2 Hct 43.7 MCV 84.9 MCH 27.6 MCHC 32.5 RDW 17.9 H Plt Count 113 L MPV 9.3 Neut % (Auto) 70.1 H Lymph % (Auto) 13.7 [place] % (Auto) 13.9 H Eos % (Auto) 1.9 Baso % (Auto) 0.4 Neut # (Auto) 5.0 Lymph # (Auto) 1.0 [place] # (Auto) 1.0 H Eos # (Auto) 0.1 Baso # (Auto) 0.0 WBC Differential . Differential Comment Auto diff final Sodium 141 Potassium 4.1 D Chloride 97 L Carbon Dioxide 37.9 H Anion Gap 6 BUN 36 H Creatinine 1.40 H Estimated GFR 49 L POC Glucose 148 H Random Glucose 226 H Calcium 9.0 Phosphorus 2.8 Magnesium 1.6 Total Bilirubin 1.2 H AST 19 ALT 13 Alkaline Phosphatase 98 Total Protein 5.2 L D Albumin 2.2 L TSH 8.780 H Free T4 1.10 01/11/18 01/11/18 01/11/18 18:30 18:31 22:00 WBC RBC Hgb Hct MCV MCH MCHC RDW Plt Count MPV Neut % (Auto) Lymph % (Auto) [place] % (Auto) Eos % (Auto) Baso % (Auto) Neut # (Auto) Lymph # (Auto) [place] # (Auto) Eos # (Auto) Baso # (Auto) WBC Differential Differential Comment Sodium Potassium Chloride Carbon Dioxide Anion Gap BUN Creatinine Estimated GFR POC Glucose 327 H 260 H 270 H Random Glucose Calcium Phosphorus Magnesium Total Bilirubin AST ALT Alkaline Phosphatase Total Protein Albumin TSH Free T4 01/12/18 01/12/18 04:22 09:06 WBC RBC Hgb Hct MCV MCH MCHC RDW Plt Count MPV Neut % (Auto) Lymph % (Auto) [place] % (Auto) Eos % (Auto) Baso % (Auto) Neut # (Auto) Lymph # (Auto) [place] # (Auto) Eos # (Auto) Baso # (Auto) WBC Differential Differential Comment Sodium Potassium Chloride Carbon Dioxide Anion Gap BUN Creatinine Estimated GFR POC Glucose 165 H 196 H Random Glucose Calcium Phosphorus Magnesium Total Bilirubin AST ALT Alkaline Phosphatase Total Protein Albumin TSH Free T4 Microbiology 01/08/18 13:30 Fluid - Pleural fluid Gram Stain - Final 01/08/18 13:30 Fluid - Pleural fluid Body Fluid Culture - Final No growth in 72 hours (aerobically and anaerobically ) Assessment and Plan - Assessment (1) Acute on chronic congestive heart failure Code(s): I50.9 - Heart failure, unspecified Status: Acute (2) Skin lesion Code(s): L98.9 - Disorder of the skin and subcutaneous tissue, unspecified Status: Chronic (3) Dementia Code(s): F03.90 - Unspecified dementia without behavioral disturbance Status: Chronic (4) Hx of kidney transplant Code(s): Z94.0 - Kidney transplant status Status: Chronic (5) CKD (chronic kidney disease) stage 3, GFR 30-59 ml/min Code(s): N18.3 - Chronic kidney disease, stage 3 (moderate) Status: Chronic (6) Elevated troponin Code(s): R74.8 - Abnormal levels of other serum enzymes Status: Acute (7) Pleural effusion, left Code(s): J90 - Pleural effusion, not elsewhere classified Status: Acute (8) Diabetes 1.5, managed as type 2 Code(s): E10.9 - Type 1 diabetes mellitus without complications Status: Chronic (9) Cardiomyopathy Code(s): I42.9 - Cardiomyopathy, unspecified Status: Chronic (10) History of CVA (cerebrovascular accident) Code(s): Z86.73 - Personal history of transient ischemic attack (TIA), and cerebral infarction without residual deficits Status: Chronic (11) Atrial fibrillation Code(s): I48.91 - Unspecified atrial fibrillation Status: Chronic - Plan 77-year-old male with a past medical history significant for CAD, CHF, history of CVA, diabetes mellitus and kidney disease status post renal transplant presents to the emergency department after being sent by his circuit breaker assembler for acute CHF exacerbation. The patient has been working with his nutrition partner on diuresis. His nutrition partner, Dr. Pro, sent him to his circuit breaker assembler for further evaluation. Acute on chronic CHF exacerbation. Had recent echocardiogram September 18, EF 20-35 %. Cardiomyopathy Elevated troponin, in the setting of chronic kidney disease and acute CHF History of CAD Atrial fibrillation, better controlled- -Continue metoprolol up to 25 mg po bid 10- HR better-continue to monitor -Cardiology following -Continue with Imdur, BB - poss cardiorenal syndrome -On Bumex to 0.5 mg IV BID, creatinine improving -Strict intake and output -Cardiac telemetry monitoring -Replace electrolytes as needed -Cardiology input appreciated, Dr. Gray evaluated; considering BiV pacer. -- DR AMOS SAID NO TO BIV PACER AT THIS TIME Left pleural effusion S/P US guided thoracentesis - 1600 cc drained 01/08- transudate -appreciate pulm input -Continue with IV Bumex - Chronic kidney disease stage III status post renal transplantation. Patient not on any immunosuppressant therapy -Nephrology input appreciated, d/w Stephanie CARDOZA -renal us results noted, mild hydronephrosis and hydroureter on the left transplanted kidney. -Mackenzie catheter will be inserted to assist with strict I/O. -urology evaluation appreciated and recommended conservative treatment at this point since the renal function is improving. Diabetes mellitus II -Accu-Cheks before meals and at bedtime with sliding-scale insulin -Carb controlled diet Early dementia, occasional agitation - on exam- calm and interactive today. -Reorient frequently -will need outpatient follow-up with PCP. 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 Pt. was referred by PCP to derm but has not followed up due to fluid overload - will need OP follow up with derm for proper diagnosis; this has been d/w the . Recent UTI, hx of enlarged prostrate and previous UTI. -S/P Cipro course 01/10 -UA done, no evidence of infection Condition guarded SCDs for DVT prophylaxis, no anticoagulation secondary to brain bleed PT evaluation. Repeat labs in am PT AND OT TO EVAL AND TREAT Code Status: Full code- Discussed Condition With: RN and patient and and cardiology Discharge Planning: Continue to diurese to get to the dry weight without elevating his BUN and creatinine Discharge Planning: when cleared by cardiology. (1) Acute on chronic congestive heart failure Qualifiers: Heart failure type: systolic Qualified Code(s): I50.23 - Acute on chronic systolic (congestive) heart failure (3) Dementia Qualifiers: Dementia type: unspecified type Dementia behavioral disturbance: with behavioral disturbance Qualified Code(s): F03.91 - Unspecified dementia with behavioral disturbance (9) Cardiomyopathy Qualifiers: Cardiomyopathy type: other Qualified Code(s): I42.8 - Other cardiomyopathies (11) Atrial fibrillation Qualifiers: Atrial fibrillation type: chronic Qualified Code(s): I48.2 - Chronic atrial fibrillation
[2018-01-12 12:38] LABS: Hemoglobin A1c 8.4 % (4.3-6.0)
[2018-01-12] MEDS: Montelukast 10 MG Tablet PO SCH (17:07)
[2018-01-13] MEDS: Insulin NovoLIN Regular Correctional Sugar Inj SQ SCH ×5 (04:05→21:13)
[2018-01-13 07:02] LABS: Calcium 9.1 mg/dL (8.5-10.1); Carbon Dioxide 37.1 meq/L (21.0-32.0); Potassium 4.3 meq/L (3.5-5.1)
[2018-01-13] MEDS: levETIRAcetam 500 MG Tablet PO SCH ×2 (09:34→21:14)
[2018-01-13] MEDS: Calcium Carbonate 500 MG Tablet PO SCH ×2 (09:35→21:14)
[2018-01-13] MEDS: Calcitriol 0.25 MCG Capsule PO SCH (09:35)
[2018-01-13] MEDS: Isosorbide Mononitrate 30 MG ER 24HR Tablet (Imdur) PO SCH (09:35)
[2018-01-13] MEDS: Metoprolol Tartrate 25 MG Tablet PO SCH ×2 (09:35→21:14)
[2018-01-13] MEDS: Finasteride 5 MG Tablet PO SCH (09:36)
[2018-01-13] MEDS: Spironolactone 25 MG Tablet PO SCH (09:37)
--- NOTE | 2018-01-13 10:26 | P.PNCA ---
Subjective Interval history: No complaints Physical Exam Vital signs: Vital Signs 01/12/18 12:00 01/12/18 16:00 01/12/18 20:00 Temperature 97.6 F 98.2 F 97.4 F L Pulse Rate 74 72 79 Respiratory Rate 18 18 18 Blood Pressure 106/52 L 104/51 L 110/55 L Pulse Oximetry 92 L 94 L 94 L 01/12/18 21:39 01/13/18 00:00 01/13/18 04:00 Temperature 97.5 F L 97.5 F L Pulse Rate 97 H 68 81 Respiratory Rate 18 18 Blood Pressure 110/59 L 112/58 L 100/60 Pulse Oximetry 93 L 96 01/13/18 04:05 01/13/18 08:00 Temperature 97.2 F L Pulse Rate 91 H 110 H Respiratory Rate 20 Blood Pressure 119/55 L Pulse Oximetry 91 L Intake & Output 01/12/18 01/13/18 01/13/18 18:59 06:59 18:59 Output Total 700 / 700 Balance -700 / -700 Weight 79.4 kg Output: Urine 700 / 700 Narrative: awake and alert Neck no JVD Chest diminished BS CV S1 [id number] Edema is much less, 1+ AF controlled - Urinary Catheter Management Indwelling Urethral Catheter Cath placed during this visit: yes Reason for continuing: Acute urinary retention Insertion date: 01/09/18 Insertion time: 13:17 Assessment and Plan - Assessment (1) Debilitated patient Code(s): R53.81 - Other malaise Status: Acute (2) Left bundle branch block Code(s): I44.7 - Left bundle-branch block, unspecified Status: Acute Plan: HR too fast for biv pacing (3) CAD (coronary artery disease) Code(s): I25.10 - Atherosclerotic heart disease of [place] coronary artery without angina pectoris Status: Acute Plan: prior CABG. no angina (4) Acute on chronic congestive heart failure Code(s): I50.9 - Heart failure, unspecified Status: Acute Plan: Cont sprinolactone. Change loop diuretic to torsemide 40mg PO daily, KCL 10meq daily (5) Hx of kidney transplant Code(s): Z94.0 - Kidney transplant status Status: Chronic (6) CKD (chronic kidney disease) stage 3, GFR 30-59 ml/min Code(s): N18.3 - Chronic kidney disease, stage 3 (moderate) Status: Chronic Plan: stable (7) Pleural effusion, left Code(s): J90 - Pleural effusion, not elsewhere classified Status: Acute Plan: s/p thoracentesis (8) Atrial fibrillation Code(s): I48.91 - Unspecified atrial fibrillation Status: Chronic Plan: Cont. metoprolol to 25mg bid - Plan Stable for discharge. (4) Acute on chronic congestive heart failure Qualifiers: Heart failure type: systolic Qualified Code(s): I50.23 - Acute on chronic systolic (congestive) heart failure (8) Atrial fibrillation Qualifiers: Atrial fibrillation type: chronic Qualified Code(s): I48.2 - Chronic atrial fibrillation
--- NOTE | 2018-01-13 11:30 | P.PNIM ---
Subjective Interval history: f/u; CHF in no acute distress. no sob or chest pain. no new complaints. d/w the RN. Physical Exam Vital signs: Vital Signs 01/12/18 12:00 01/12/18 16:00 01/12/18 20:00 Temperature 97.6 F 98.2 F 97.4 F L Pulse Rate 74 72 79 Respiratory Rate 18 18 18 Blood Pressure 106/52 L 104/51 L 110/55 L Pulse Oximetry 92 L 94 L 94 L 01/12/18 21:39 01/13/18 00:00 01/13/18 04:00 Temperature 97.5 F L 97.5 F L Pulse Rate 97 H 68 81 Respiratory Rate 18 18 Blood Pressure 110/59 L 112/58 L 100/60 Pulse Oximetry 93 L 96 01/13/18 04:05 01/13/18 08:00 Temperature 97.2 F L Pulse Rate 91 H 94 H Respiratory Rate 20 Blood Pressure 119/55 L Pulse Oximetry 91 L Intake & Output 01/12/18 01/13/18 01/13/18 18:59 06:59 18:59 Output Total 700 / 700 Balance -700 / -700 Weight 79.4 kg Output: Urine 700 / 700 - Constitutional no acute distress - Routine Respiratory Exam Present: CTA bilaterally - Routine Cardiovascular Exam Present: RRR - Routine Abdominal Exam Present: soft - Routine Extremities Exam Present: edema (bilateral pedal edema.) - Routine Neurological Exam Present: alert - Urinary Catheter Management Indwelling Urethral Catheter Cath placed during this visit: yes Reason for continuing: Acute urinary retention Insertion date: 01/09/18 Insertion time: 13:17 Results - Labs CBC & Chem 7: 01/11/18 13:03 01/13/18 05:30 Laboratory Results - last 24 hr 01/11/18 01/12/18 01/12/18 13:03 12:28 12:29 Sodium Potassium Chloride Carbon Dioxide Anion Gap BUN Creatinine Estimated GFR POC Glucose 375 H 266 H Random Glucose Hemoglobin A1c 8.4 H Calcium 01/12/18 01/12/18 01/13/18 17:01 21:27 03:53 Sodium Potassium Chloride Carbon Dioxide Anion Gap BUN Creatinine Estimated GFR POC Glucose 251 H 247 H 190 H Random Glucose Hemoglobin A1c Calcium 01/13/18 01/13/18 05:30 09:01 Sodium 142 Potassium 4.3 Chloride 100 Carbon Dioxide 37.1 H Anion Gap 5 BUN 33 H Creatinine 1.21 Estimated GFR 58 L POC Glucose 199 H Random Glucose 176 H Hemoglobin A1c Calcium 9.1 Assessment and Plan - Assessment (1) Acute on chronic congestive heart failure Code(s): I50.9 - Heart failure, unspecified Status: Acute (2) Skin lesion Code(s): L98.9 - Disorder of the skin and subcutaneous tissue, unspecified Status: Chronic (3) Dementia Code(s): F03.90 - Unspecified dementia without behavioral disturbance Status: Chronic (4) Hx of kidney transplant Code(s): Z94.0 - Kidney transplant status Status: Chronic (5) CKD (chronic kidney disease) stage 3, GFR 30-59 ml/min Code(s): N18.3 - Chronic kidney disease, stage 3 (moderate) Status: Chronic (6) Elevated troponin Code(s): R74.8 - Abnormal levels of other serum enzymes Status: Acute (7) Pleural effusion, left Code(s): J90 - Pleural effusion, not elsewhere classified Status: Acute (8) Diabetes 1.5, managed as type 2 Code(s): E10.9 - Type 1 diabetes mellitus without complications Status: Chronic (9) Cardiomyopathy Code(s): I42.9 - Cardiomyopathy, unspecified Status: Chronic (10) History of CVA (cerebrovascular accident) Code(s): Z86.73 - Personal history of transient ischemic attack (TIA), and cerebral infarction without residual deficits Status: Chronic (11) Atrial fibrillation Code(s): I48.91 - Unspecified atrial fibrillation Status: Chronic - Plan 77-year-old male with a past medical history significant for CAD, CHF, history of CVA, diabetes mellitus and kidney disease status post renal transplant presents to the emergency department after being sent by his kitchenhand for acute CHF exacerbation. The patient has been working with his screener perfumer on diuresis. His screener perfumer, Dr. Pro, sent him to his kitchenhand for further evaluation. Acute on chronic CHF exacerbation. Had recent echocardiogram September 18, EF 20-35 %. Cardiomyopathy Elevated troponin, in the setting of chronic kidney disease and acute CHF History of CAD Atrial fibrillation, better controlled- -Continue metoprolol up to 25 mg po bid 8/10- HR better-continue to monitor -Cardiology following -Continue with Imdur, BB - poss cardiorenal syndrome -On Bumex to 0.5 mg IV BID, creatinine improving; will switch to Toresemide upon discharge. -Strict intake and output -Cardiac telemetry monitoring -Replace electrolytes as needed -Cardiology input appreciated, Dr. Gray evaluated; considering BiV pacer. -- DR AMOS SAID NO TO BIV PACER AT THIS TIME Left pleural effusion S/P US guided thoracentesis - 1600 cc drained 01/08- transudate -appreciate pulm input -Continue diuretics. - Chronic kidney disease stage III status post renal transplantation. Patient not on any immunosuppressant therapy -Nephrology input appreciated, d/w Stephanie CARDOZA -renal us results noted, mild hydronephrosis and hydroureter on the left transplanted kidney. -Mackenzie catheter will be inserted to assist with strict I/O. -urology evaluation appreciated and recommended conservative treatment at this point since the renal function is improving. Diabetes mellitus II -Accu-Cheks before meals and at bedtime with sliding-scale insulin -Carb controlled diet Early dementia, occasional agitation - on exam- calm and interactive today. -Reorient frequently -will need outpatient follow-up with PCP. 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 Pt. was referred by PCP to derm but has not followed up due to fluid overload - will need OP follow up with derm for proper diagnosis; this has been d/w the . Recent UTI, hx of enlarged prostrate and previous UTI. -S/P Cipro course 01/10 -UA done, no evidence of infection Condition guarded SCDs for DVT prophylaxis, no anticoagulation secondary to brain bleed PT evaluation. Repeat labs in am PT AND OT TO EVAL AND TREAT Code Status: Full code- Discussed Condition With: RN and patient and and cardiology Discharge Planning: Continue to diurese to get to the dry weight without elevating his BUN and creatinine Discharge Planning: the family asked about [facility]; will consult case management- otherwise dc home with C tomorrow if stable. (1) Acute on chronic congestive heart failure Qualifiers: Heart failure type: systolic Qualified Code(s): I50.23 - Acute on chronic systolic (congestive) heart failure (3) Dementia Qualifiers: Dementia type: unspecified type Dementia behavioral disturbance: with behavioral disturbance Qualified Code(s): F03.91 - Unspecified dementia with behavioral disturbance (9) Cardiomyopathy Qualifiers: Cardiomyopathy type: other Qualified Code(s): I42.8 - Other cardiomyopathies (11) Atrial fibrillation Qualifiers: Atrial fibrillation type: chronic Qualified Code(s): I48.2 - Chronic atrial fibrillation
--- NOTE | 2018-01-13 12:48 | P.PNNP ---
Subjective Interval history: Patient sitting in a chair not in respiratory distress. Physical Exam Vital signs: Vital Signs 01/12/18 16:00 01/12/18 20:00 01/12/18 21:39 Temperature 98.2 F 97.4 F L Pulse Rate 72 79 97 H Respiratory Rate 18 18 Blood Pressure 104/51 L 110/55 L 110/59 L Pulse Oximetry 94 L 94 L 01/13/18 00:00 01/13/18 04:00 01/13/18 04:05 Temperature 97.5 F L 97.5 F L Pulse Rate 68 81 91 H Respiratory Rate 18 18 Blood Pressure 112/58 L 100/60 Pulse Oximetry 93 L 96 01/13/18 08:00 Temperature 97.2 F L Pulse Rate 94 H Respiratory Rate 20 Blood Pressure 119/55 L Pulse Oximetry 91 L Intake & Output 01/12/18 01/13/18 01/13/18 18:59 06:59 18:59 Output Total 700 / 700 Balance -700 / -700 Weight 79.4 kg Output: Urine 700 / 700 Narrative: GENERAL: Patient sitting in a chair not in respiratory distress. No verbal complaints. by bedside. SKIN: Warm and dry. HEAD: Normocephalic. EYES: No scleral icterus. No injection or drainage. NECK: Supple, trachea midline. No JVD or lymphadenopathy. CARDIOVASCULAR: Regular rate and rhythm without murmurs, gallops, or rubs. RESPIRATORY: Breath sounds equal bilaterally. No accessory muscle use. GASTROINTESTINAL: Abdomen soft, non-tender, nondistended. MUSCULOSKELETAL: No cyanosis, 1+ pitting edema lower extremities. - Urinary Catheter Management Indwelling Urethral Catheter Cath placed during this visit: yes Reason for continuing: Acute urinary retention Insertion date: 01/09/18 Insertion time: 13:17 Assessment and Plan - Assessment (1) Cardiorenal syndrome with renal failure Code(s): I13.10 - Hypertensive heart and chronic kidney disease without heart failure, with stage 1 through stage 4 chronic kidney disease, or unspecified chronic kidney disease; N19 - Unspecified kidney failure Status: Chronic Plan: The patient's volume status and creatinine level have improved with diuretic therapy. Apparently not a candidate for biventricular pacer per cardiology. Patient cleared for discharge from renal point of view. Possible discharge to rehab as per facility maintenance worker.. As indicated previously that has been significant decline in the patient's overall condition is last few months. Long-term prognosis guarded at best in view of this and his severe cardiomyopathy, debilitation and dementia. Patient will be seen as needed at this point in time. Please call if any questions. Otherwise follow-up in the office post discharge in about 3 weeks. Discussed with . Given severity of cardiomyopathy patient's increasing debilitation over the last few months I believe his long-term prognosis is guarded at best. (2) Hx of kidney transplant Code(s): Z94.0 - Kidney transplant status Status: Chronic Plan: Patient has not required immunosuppressive therapy for many years. He did receive a living related donor kidney transplant thus accounting for graft tolerance. As above. (3) CKD (chronic kidney disease) stage 3, GFR 30-59 ml/min Code(s): N18.3 - Chronic kidney disease, stage 3 (moderate) Status: Chronic Plan: Patient's renal disease appear to be relatively stable. Nothing new to add from a renal point of view. We will see the patient as needed. Please call if any questions over the weekend. Medication should be adjusted for the patient's estimated GFR when indicated. Avoid agents with significant nephrotoxicity including NSAIDs for analgesia, iodine contrast agents if possible. Gadolinium contraindicated if GFR below 30. (4) Metabolic alkalosis Code(s): E87.3 - Alkalosis Status: Acute Plan: Improved. (5) Secondary hyperparathyroidism of renal origin Code(s): N25.81 - Secondary hyperparathyroidism of renal origin Status: Chronic Plan: Calcium within acceptable range. s/p parathyroidectomy in the past. Continue on Calcitriol as before. - Plan Continue current dosage of calcitriol. Check PTH level tomorrow.
--- NOTE | 2018-01-13 13:09 | P.PNURO ---
Subjective Patient symptoms today: Pt seen by Dr. Hurd on 01/10. Mcintyre in place with h/o BPH on Proscar and Urocholine. Now somewhat weak and waiting to go to rehab. Creatinine is WNL. Objective Vital Signs: Vital Signs 01/12/18 16:00 01/12/18 20:00 01/12/18 21:39 Temperature 98.2 F 97.4 F L Pulse Rate 72 79 97 H Respiratory Rate 18 18 Blood Pressure 104/51 L 110/55 L 110/59 L Pulse Oximetry 94 L 94 L 01/13/18 00:00 01/13/18 04:00 01/13/18 04:05 Temperature 97.5 F L 97.5 F L Pulse Rate 68 81 91 H Respiratory Rate 18 18 Blood Pressure 112/58 L 100/60 Pulse Oximetry 93 L 96 01/13/18 08:00 Temperature 97.2 F L Pulse Rate 94 H Respiratory Rate 20 Blood Pressure 119/55 L Pulse Oximetry 91 L Intake & Output 01/12/18 01/13/18 01/13/18 18:59 06:59 18:59 Output Total 700 / 700 Balance -700 / -700 Weight 79.4 kg Output: Urine 700 / 700 Result Diagrams: 01/11/18 13:03 01/13/18 05:30 Medications and IVs: Active Medications Generic Name Dose Route Start Last Admin Trade Name Freq PRN Reason Stop Dose Admin Hydrocodone Bitart/Acetaminophen 1 tab 01/07/18 21:45 [place] 5/325 PO Q4H PRN PAIN SCALE 1 - 10 Albuterol 2.5 mg 01/07/18 21:45 *Albuterol Neb Periprocedure Only NEB Q4HR NEB PRN Shortness Of Breath / WheezinG Bethanechol Chloride 25 mg 01/08/18 09:00 01/13/18 09:37 Urecholine PO 25 mg BID KIAN Administration Calcitriol 0.25 mcg 01/08/18 09:00 01/13/18 09:35 Rocaltrol PO 0.25 mcg DAILY KIAN Administration Dextrose 50 ml 01/07/18 22:21 D50w Vial IV.PUSH UNSCH PRN PER HYPOGLYCEMIA PROTOCOL Finasteride 5 mg 01/08/18 09:00 01/13/18 09:36 Proscar PO 5 mg DAILY KIAN Administration Glucagon 1 mg 08/07/18 22:21 Glucagon Inj OTHER PRN PRN for Hypoglycemia Protocol Insulin Human Regular 0 units 01/08/18 03:00 01/13/18 09:35 Novolin R Correctional Sugar Inj SQ 1 units ACHS AND 3AM KIAN Administration Protocol Isosorbide Mononitrate 30 mg 01/08/18 09:00 01/13/18 09:35 Imdur PO 30 mg DAILY KIAN Administration Levetiracetam 500 mg 01/07/18 22:00 01/13/18 09:34 Keppra PO 500 mg Q12H KIAN Administration Melatonin 10 mg 01/07/18 22:00 01/12/18 21:23 Melatonin PO 10 mg HS KIAN Administration Metoprolol Tartrate 25 mg 01/10/18 09:00 01/13/18 09:35 Lopressor PO 25 mg BID KIAN Administration Montelukast Sodium 10 mg 01/08/18 18:00 01/12/18 17:07 Singulair PO 10 mg QPM KIAN Administration Ondansetron HCl 8 mg 01/07/18 21:45 Zofran Odt PO BID PRN Nausea Potassium Chloride 20 meq 01/14/18 09:00 K-Dur PO DAILY KIAN Sodium Chloride 2 ml 01/08/18 09:00 01/12/18 21:24 Ns Flush IV.FLUSH 2 ml BID KIAN Administration Sodium Chloride 2 ml 01/07/18 21:40 Ns Flush IV.FLUSH UNSCH PRN FLUSH AFTER USING IV ACCESS Spironolactone 25 mg 01/10/18 09:00 01/13/18 09:37 Aldactone PO 25 mg DAILY KIAN Administration Torsemide 40 mg 01/14/18 09:00 Demadex PO DAILY KIAN Objective Remarks: Abd:soft,nt,nd Mcintyre: urine clear Assessment and Plan - Plan 77 y.o male with h/o KTX and recent CHF exacerbation Void trial at rehab after pt regains his strength and is ambulating more. This will provide the best chance for success. Continue Urocholine and Proscar. Cipro 500mg PO bid once mcintyre is removed to prevent UTI.
--- NOTE | 2018-01-13 14:08 | P.DCO ---
- Physical Therapy Order: Evaluate and treat - Home Health Nursing Order: Medical education, Signs/symptoms of disease process, CHF education, Medication education-adverse effect - Certification I have seen patient Joselito Olson on 01/13/18. My clinical findings support the need for the requested home health care services because: Patient has SOB I certify that my clinical findings support that this patient is homebound because: Poor cardiac reserve
[2018-01-13] MEDS: Montelukast 10 MG Tablet PO SCH (19:32)
--- NOTE | 2018-01-13 20:11 | P.PNPL ---
Subjective Interval history: 77 WM with CHF,CMP,Pl eff had TC Pl fluid transudate Breathing better Comfortable, up in chair Physical Exam Vital signs: Vital Signs 01/12/18 21:39 01/13/18 00:00 01/13/18 04:00 Temperature 97.5 F L 97.5 F L Pulse Rate 97 H 68 81 Respiratory Rate 18 18 Blood Pressure 110/59 L 112/58 L 100/60 Pulse Oximetry 93 L 96 01/13/18 04:05 01/13/18 08:00 01/13/18 12:00 Temperature 97.2 F L 98.7 F Pulse Rate 91 H 94 H 69 Respiratory Rate 20 20 Blood Pressure 119/55 L 92/54 L Pulse Oximetry 91 L 94 L 01/13/18 16:00 Temperature 97.2 F L Pulse Rate 77 Respiratory Rate 20 Blood Pressure 116/56 L Pulse Oximetry 95 Intake & Output 01/13/18 01/13/18 01/14/18 06:59 18:59 06:59 Intake Total 740 / 740 Output Total 700 / 700 3 / 3 Balance -700 / -700 737 / 737 Weight 79.4 kg Intake: Tube Feeding 740 / 740 Output: Urine 700 / 700 3 GENERAL: Elderly WM, mild sob SKIN: Warm and dry. HEAD: Normocephalic. EYES: No scleral icterus. No injection or drainage. NECK: Supple, trachea midline. No JVD or lymphadenopathy. CARDIOVASCULAR: Regular rate and rhythm without murmurs, gallops, or rubs. RESPIRATORY: Breath sounds equal bilaterally. No accessory muscle use. GASTROINTESTINAL: Abdomen soft, non-tender, nondistended. MUSCULOSKELETAL: No cyanosis, + edema. BACK: Nontender without obvious deformity. No CVA tenderness. - Urinary Catheter Management Indwelling Urethral Catheter Cath placed during this visit: yes Reason for continuing: Acute urinary retention Insertion date: 01/09/18 Insertion time: 13:17 Assessment and Plan - Plan IMPRESSION: 1. Pleural effusion status post thoracentesis. 2. Congestive heart failure. 3. Cardiomyopathy. 4. Status post renal transplant. 5. History of cerebrovascular accident. PLAN: Diurease with Torsemide Aerosol nebs Supplement 02 monitor Lytes Keppra 500 mg bid DW family at BS. Stable from Pulm standpoint
[2018-01-13] MEDS: Melatonin 5 MG Tablet PO SCH (21:14)
[2018-01-14] MEDS: Insulin NovoLIN Regular Correctional Sugar Inj SQ SCH ×3 (03:13→13:20)
[2018-01-14] MEDS: Spironolactone 25 MG Tablet PO SCH (08:15)
[2018-01-14] MEDS: Calcitriol 0.25 MCG Capsule PO SCH (08:15)
[2018-01-14] MEDS: Finasteride 5 MG Tablet PO SCH (08:15)
[2018-01-14] MEDS: Calcium Carbonate 500 MG Tablet PO SCH (08:15)
[2018-01-14] MEDS: Metoprolol Tartrate 25 MG Tablet PO SCH (08:24)
[2018-01-14] MEDS: Isosorbide Mononitrate 30 MG ER 24HR Tablet (Imdur) PO SCH (08:24)
[2018-01-14 08:53] VITALS: RESP 20
[2018-01-14] MEDS ORDERED: Torsemide 20 MG Tablet PO SCH (09:00)
--- NOTE | 2018-01-14 09:34 | P.DS ---
Date of admission: 01/07/18 20:50 Primary care physician: Luis Angel Beasley MD Brief History from admission: 77-year-old male with a past medical history significant for CAD, CHF, history of CVA, diabetes mellitus and kidney disease status post renal transplant presents to the emergency department after being sent by his chief of party for exacerbation. The patient has been working with his boat tender on diuresis. His boat tender, Dr. Pro, sent him to his chief of party for further evaluation today. The patient denies any chest pain. No shortness of breath. He complains of swelling from his feet to his abdomen. DS: Medications - Discharge Medications Prescriptions: metoprolol tartrate 25 mg PO BID 30 Days #60 tab DS: Summary Hospital Course: patient was admitted with decompensated CHF. he was started back on IV diuretics and underwent thoracentesis. he was switched to Torsemide upon discharge. he was seen by pulmonary, cardiology and nephrology. he was also evaluated by urology. overall his clinical condition improved. he will have a f/ u with above-noted consultants as outpatient. - Time Spent with Patient Total time spent providing and/or coordinating discharge services: Greater than 30 minutes - Quality: VTE Deep Vein Thrombosis/Pulmonary Embolism Present on Admission: No Exam Vital signs: Vital Signs 01/13/18 12:00 01/13/18 16:00 01/13/18 20:00 Temperature 98.7 F 97.2 F L 98.2 F Pulse Rate 69 77 89 Respiratory Rate 20 20 18 Blood Pressure 92/54 L 116/56 L 101/51 L Pulse Oximetry 94 L 95 94 L 01/13/18 20:38 01/14/18 00:00 01/14/18 04:00 Temperature 97.1 F L 97.2 F L Pulse Rate 80 97 H Respiratory Rate 19 16 Blood Pressure 112/56 L 105/54 L Pulse Oximetry 95 93 L 90 L 01/14/18 08:00 Temperature 97.3 F L Pulse Rate 95 H Respiratory Rate 20 Blood Pressure 176/74 H Pulse Oximetry 90 L Intake & Output 01/13/18 01/14/18 01/14/18 18:59 06:59 18:59 Intake Total 740 / 740 Output Total 3 / 3 / Balance 737 / 737 - / -1 Weight 77.6 kg Intake: Tube Feeding 740 / 740 Output: Urine 3 / 3 Stool Other: Date of Last Bowel Movement 01/14/18 Results Procedures completed during hospitalization: thoracentesis. Labs on day of discharge: Labs from last 24 hours 01/14/18 01/14/18 01/13/18 07:40 02:54 19:42 POC Glucose 136 H 161 H 236 H 01/13/18 01/13/18 17:50 12:11 POC Glucose 274 H 274 H - Impressions ITS Impressions Chest X-Ray 01/08/18 00:00 CONCLUSION: No pneumothorax. Renal Ultrasound 01/08/18 00:00 CONCLUSION: 1. Mild hydronephrosis and hydroureter of the transplant kidney, etiology uncertain. 2. Borderline to mildly elevated resistive indices concerning for early chronic rejection. Thoracentesis Ultrasound 01/08/18 00:00 CONCLUSION: 1. Successful ultrasound-guided left thoracentesis. Discharge Plan - Discharge Disposition Patient Disposition: /Home Health Service - Discharge Condition Condition: Fair - Discharge Order Discharge Orders: Cardiology Clear for Discharge (Routine); Ordered 01/13/18 Ordered By: Jone Gray - Physicians Team Primary Care Provider: Luis Angel Beasley Attending Provider: Belén Hernadez Other Providers: Jone Gray MD ; Andres Pro MD ; Rahul Owen MD ; Mariano Lee DO
[2018-01-14] MEDS: levETIRAcetam 500 MG Tablet PO SCH (09:53)
--- NOTE | 2018-01-14 09:57 | P.PNIM ---
Subjective Interval history: f/u; CHF in no acute distress. denies chest pain. hoping that he could be discharged soon. family at the bedside. Physical Exam Vital signs: Vital Signs 01/13/18 12:00 01/13/18 16:00 01/13/18 20:00 Temperature 98.7 F 97.2 F L 98.2 F Pulse Rate 69 77 89 Respiratory Rate 20 20 18 Blood Pressure 92/54 L 116/56 L 101/51 L Pulse Oximetry 94 L 95 94 L 01/13/18 20:38 01/14/18 00:00 01/14/18 04:00 Temperature 97.1 F L 97.2 F L Pulse Rate 80 97 H Respiratory Rate 19 16 Blood Pressure 112/56 L 105/54 L Pulse Oximetry 95 93 L 90 L 01/14/18 08:00 Temperature 97.3 F L Pulse Rate 95 H Respiratory Rate 20 Blood Pressure 176/74 H Pulse Oximetry 90 L Intake & Output 01/13/18 01/14/18 01/14/18 18:59 06:59 18:59 Intake Total 740 / 740 Output Total 3 / 3 Balance 737 / 737 - Weight 77.6 kg Intake: Tube Feeding 740 / 740 Output: Urine Stool Other: Date of Last Bowel Movement 01/14/18 - Constitutional no acute distress - Routine Respiratory Exam Present: CTA bilaterally - Routine Cardiovascular Exam Present: RRR - Routine Abdominal Exam Present: soft - Routine Extremities Exam Comments: bilateral pedal edema. - Routine Neurological Exam Present: alert, oriented X3 - Urinary Catheter Management Indwelling Urethral Catheter Cath placed during this visit: yes Reason for continuing: Acute urinary retention Insertion date: 01/09/18 Insertion time: 13:17 Results - Labs CBC & Chem 7: 01/11/18 13:03 01/13/18 05:30 Laboratory Results - last 24 hr 01/13/18 01/13/18 01/13/18 12:11 17:50 19:42 POC Glucose 274 H 274 H 236 H 01/14/18 01/14/18 02:54 07:40 POC Glucose 161 H 136 H - Procedures thoracentesis. Assessment and Plan - Plan 77-year-old male with a past medical history significant for CAD, CHF, history of CVA, diabetes mellitus and kidney disease status post renal transplant presents to the emergency department after being sent by his toolroom machinist for acute CHF exacerbation. The patient has been working with his chinese teacher on diuresis. His chinese teacher, Dr. Pro, sent him to his toolroom machinist for further evaluation. Acute on chronic CHF exacerbation. Had recent echocardiogram September 18, EF 20-35 %. Cardiomyopathy Elevated troponin, in the setting of chronic kidney disease and acute CHF History of CAD Atrial fibrillation, better controlled- -Continue metoprolol up to 25 mg po bid 01/10- HR better-continue to monitor -Cardiology following -Continue with Imdur, BB - poss cardiorenal syndrome -On Bumex to 0.5 mg IV BID, creatinine improving; will switch to Torsemide upon discharge. -Strict intake and output -Cardiac telemetry monitoring -Replace electrolytes as needed -Cardiology input appreciated, Dr. Gray evaluated; considering BiV pacer. -- DR AMOS SAID NO TO BIV PACER AT THIS TIME Left pleural effusion S/P US guided thoracentesis - 1600 cc drained 01/08- transudate -appreciate pulm input -Continue diuretics. - Chronic kidney disease stage III status post renal transplantation. Patient not on any immunosuppressant therapy -Nephrology input appreciated, d/w Stephanie CARDOZA -renal us results noted, mild hydronephrosis and hydroureter on the left transplanted kidney. -Mcintyre catheter inserted to assist with strict I/O. -urology evaluation appreciated and recommended conservative treatment at this point since the renal function is improving. -will keep the mcintyre cath for now till he's stronger-then will proceed with voiding trial and restart cipro when mcintyre cath has been removed- per Urology. Diabetes mellitus II -Accu-Cheks before meals and at bedtime with sliding-scale insulin -Carb controlled diet Early dementia, occasional agitation - on exam- calm and interactive today. -Reorient frequently -will need outpatient follow-up with PCP. 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 Pt. was referred by PCP to derm but has not followed up due to fluid overload - will need OP follow up with derm for proper diagnosis; this has been d/w the . Recent UTI, hx of enlarged prostrate and previous UTI. -S/P Cipro course 01/10 -UA done, no evidence of infection Condition guarded SCDs for DVT prophylaxis, no anticoagulation secondary to brain bleed PT evaluation. Repeat labs in am PT AND OT TO EVAL AND TREAT Code Status: Full code- Discharge Planning: discharge planning today; [facility] f/u; pcp, cardiology, nephrology and urology. d/w the patient and family. time spent 35 min.
[2018-01-14 16:20] VITALS: PULSE 81; TEMP 97.3
[2018-01-14 16:21] VITALS: BP 101/51; O2SAT 95
[2018-01-14] MEDS: Montelukast 10 MG Tablet PO SCH (17:39)
--- NOTE | 2018-01-14 18:25 | P.PNPL ---
Subjective Interval history: 77 WM with CHF,CMP,Pl eff had TC Pl fluid transudate Breathing better No new complaint Physical Exam Vital signs: Vital Signs 01/13/18 20:00 01/13/18 20:38 01/14/18 00:00 Temperature 98.2 F 97.1 F L Pulse Rate 89 80 Respiratory Rate 18 19 Blood Pressure 101/51 L 112/56 L Pulse Oximetry 94 L 95 93 L 01/14/18 04:00 01/14/18 08:00 01/14/18 10:04 Temperature 97.2 F L 97.3 F L Pulse Rate 97 H 95 H Respiratory Rate 16 20 Blood Pressure 105/54 L 176/74 H Pulse Oximetry 90 L 90 L 99 01/14/18 12:00 01/14/18 16:00 01/14/18 17:35 Temperature 97.9 F 97.3 F L Pulse Rate 68 81 Respiratory Rate 20 20 Blood Pressure 106/53 L 101/51 L Pulse Oximetry 97 95 95 Intake & Output 01/13/18 01/14/18 01/14/18 18:59 06:59 18:59 Intake Total 740 / 740 Output Total 1351 / 1351 Balance 737 / 737 -1351 / -1351 Weight 77.6 kg Intake: Tube Feeding 740 / 740 Output: Urine 1350 / 1350 Stool Other: Date of Last Bowel Movement 01/14/18 GENERAL: Elderly Wm, weak SKIN: Warm and dry. HEAD: Normocephalic. EYES: No scleral icterus. No injection or drainage. NECK: Supple, trachea midline. No JVD or lymphadenopathy. CARDIOVASCULAR: Regular rate and rhythm without murmurs, gallops, or rubs. RESPIRATORY: Breath sounds equal bilaterally. No accessory muscle use. GASTROINTESTINAL: Abdomen soft, non-tender, nondistended. MUSCULOSKELETAL: No cyanosis, + edema. BACK: Nontender without obvious deformity. No CVA tenderness. - Urinary Catheter Management Indwelling Urethral Catheter Cath placed during this visit: yes Reason for continuing: Acute urinary retention Insertion date: 01/09/18 Insertion time: 13:17 Assessment and Plan - Plan IMPRESSION: 1. Pleural effusion status post thoracentesis. 2. Congestive heart failure. 3. Cardiomyopathy. 4. Status post renal transplant. 5. History of cerebrovascular accident. PLAN: Diurease with Torsemide Aerosol nebs Supplement 02 monitor Lytes Keppra 500 mg bid DW family at BS. DC plans for rehab
== END 2018-01-14 18:10 ==
LOC: NEPC 16:15 → NEDA 20:50 → NEPFCDU 23:45 → H7ONC 01-10 12:03 → N04 01-11 00:30
PROVIDERS: ADMIT Internal Medicine; ATTEND Internal Medicine

== ENCOUNTER 2018-03-19 12:40 | Observation (INO) ==
--- NOTE | 2018-01-10 19:21 | MB ---
cc: Adriana Schultz MD DATE: 01/09/2018 DATE OF CONSULT: 01/09/2018 REASON FOR CONSULTATION: Possible Bi-V pacer. HISTORY OF PRESENT ILLNESS: Mr. Rizvi is a 77-year-old gentleman with a history of cardiomyopathy, congestive heart failure, anasarca, cachexia, atrial fibrillation, heart rate controlled on anticoagulation. He has pleural effusion. He has previous thoracocentesis. He had a previous renal transplant, history of CVA and was referred by Dr. Gray for evaluation. His chart was reviewed. The patient was evaluated. ALLERGIES: 1. ASPIRIN. 2. . 3. ALLOPURINOL. 4. IBUPROFEN. SOCIAL HISTORY: This gentleman denies smoking and drinking. FAMILY HISTORY: Noncontributory to his current medical condition. MEDICATIONS: 1. Albuterol inhaler. 2. [place]. 3. Bumex IV. 4. . 5. Proscar 5 mg a day. 6. Insulin. 7. Imdur 30 mg a day. 8. Keppra 500 mg every 12 hours. 9. Melatonin. 10. Lopressor 25 mg twice a day. 11. Singulair 10 mg a day. 12. Zofran. 13. Potassium. REVIEW OF SYSTEMS: The patient refers feeling tired. PHYSICAL EXAMINATION: GENERAL: The patient is apparently alert, I am not sure he is completely oriented, moderate conversation done with the patient. There was a lady, I assume she is the , has to intervene. She was calling the patient honey. VITAL SIGNS: Blood pressure now 113/51, pulse 90, respiratory rate 20. . CARDIOVASCULAR: S1, S2, irregular. No gallop. ABDOMEN: Soft. No mass. The patient has history of cachexia. EXTREMITIES: No edema. DIAGNOSTIC DATA: Electrocardiogram show atrial fibrillation. Diffuse ST changes, rate is in the 90s-100s. LABORATORY DATA: Hemoglobin is 14, white blood cell 8.6. Potassium is 3.3, creatinine 1.42. ASSESSMENT AND RECOMMENDATIONS: Mr. Rizvi has history of question of early coronary artery disease, cardiomyopathy. He has heart failure. He has pleural effusion. He has atrial fibrillation. He has multiple CVA as cachexia. Blood pressure is very low. Dr. Gray is adding [id number] beta keya. His QRS reading the machine reports 128, but the QRS is barely 110-150 milliseconds. 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 Also, he is not completely functional. I understand to improve quality of life of a Bi-V pacer was requested. The gentleman does not meet full criteria. Also, to have the gentleman Bi-V pacing 100% there are 2 options; one is to increase the heart rate to around 100 beats per minute with the pacemaker may be detrimental for the patient or the next option would be an AV node ablation and have the patient pacing. That is not necessary because the heart rate is in the 80s-90s. I discussed the case extensively with the family that was at bedside. I will call Dr. Gray and discuss the case with him. At this point my recommendation is medical management. I would be available on a p.r.n. basis. MD ABDIAZIZ Alvarez/katya/sandra , 04:30 PM , 04:44 PM
[~2018-03-19 12:40] MED LIST changes: -ALBU0.08 NEB; -BETH25TA2 PO; -BUME1TAB PO; -CALC.25 PO; -CALC500T30 PO; -FINA1TAB16 PO; -HYDR-3533 PO; -HYDR1CRE70 TOPICAL; -ISOS30TA3 PO; -LEVE500 PO; -LEVE500T8 PO; +Lidocaine PF 1% Inj 10 ML Amp ONE; -MAGN400T3 PO; -MELA1TAB18 PO; -METO25TA3 PO; -MONT10TA2 PO; -N7030SS SQ; -NOVO7030P2 SQ; -POTA20TA5 PO; -VITA500012 PO; -ZOFR8TAB PO
[2018-03-19 13:29] LABS: Baso % (Auto) 0.4 % (0.0-2.0); Eos # (Auto) 0.2 th/mm3 (0.0-0.4); Eos % (Auto) 2.3 % (0.0-4.0); Hematocrit 48.2 % (39.0-51.0); Hemoglobin 15.6 gm/dL (13.0-17.0); Lymph # (Auto) 1.1 th/mm3 (1.0-4.8); Lymph % (Auto) 16.1 % (9.0-44.0); Mean Corpuscular HGB Conc 32.3 % (32.0-36.0); Mean Corpuscular Hemoglobin 28.3 pg (27.0-34.0); Mean Corpuscular Volume 87.4 fL (80.0-100.0); Mean Platelet Volume 9.1 fL (7.0-11.0); Mono # (Auto) 1.1 th/mm3 (0.0-0.9); Mono % (Auto) 15.6 % (0.0-8.0); Neut # (Auto) 4.5 th/mm3 (1.8-7.7); Neut % (Auto) 65.6 % (16.0-70.0); Platelet Count 144 th/mm3 (150-450); Red Blood Count 5.52 mil/mm3 (4.50-5.90); Red Cell Distribution Width 17.8 % (11.6-17.2); White Blood Count 6.8 th/mm3 (4.0-11.0)
--- NOTE | 2018-03-19 13:36 | US ---
EXAM DATE: 03/19/2018 1:01 PM EDT AGE/SEX: 77 years / Male INDICATIONS: Left pleural effusion. Chest marking. CLINICAL DATA: This is the patient's initial encounter. Patient reports that signs and symptoms have been present for 1 day and indicates a pain score of 0/10. MEDICAL/SURGICAL HISTORY: Diabetes. CAD. CHF. CVA. Right frontal lobe hemangioma. Renal osteody strophy. CABG. Parathyroidectomy. Cardiac cath. Renal transplant. Cataract surgery. Hemangioma remov al. COMPARISON: [facility], CT CHEST W/O CONTRAST, 09/21/2016. . MEASUREMENTS: Skin To Parietal Pleura:__1.9 cm Skin To Max Safe Depth:__3.7 cm Estimated Fluid Volume:__751 cc Fluid Composition:__simple FINDINGS: Moderate left pleural effusion with marking as above CONCLUSION: 1. Electronically signed by: Jimbo Mckeon MD 03/19/2018 1:35 PM EDT
[2018-03-19 13:44] LABS: INR 1.2 Ratio; Prothrombin Time 12.5 sec (9.8-11.6)
--- NOTE | 2018-03-19 15:28 | XR ---
EXAM DATE: 03/19/2018 12:00 AM EDT AGE/SEX: 77 years / Male INDICATIONS: Post thorax CLINICAL DATA: This is the patient's subsequent encounter. Patient reports that signs and symptoms h ave been present for 1 day and indicates a pain score of 0/10. MEDICAL/SURGICAL HISTORY: Congestive heart failure. CABG. Kidney transplant COMPARISON: [facility], XR CHEST PA AND LAT, 03/05/2018. . FINDINGS: Sternal wires from previous bypass are noted. The heart remains minimally enlarged. There is no evide nce consolidation, pleural effusion or pneumothorax. The portion of the bony skeleton visualized is unremarkable. CONCLUSION: Previous bypass with mild compensated cardiomegaly Electronically signed by: Jimbo Mckeon MD 03/19/2018 3:27 PM EDT
--- NOTE | 2018-03-19 15:35 | MP ---
cc: Rahul Owen MD DATE OF OPERATION: 03/19/2018 PROCEDURE: Left thoracentesis. PREPROCEDURE DIAGNOSIS: Left pleural effusion. DESCRIPTION OF PROCEDURE: Informed consent was obtained from the patient, procedure and the complications, including complication of anesthesia, pneumothorax requiring chest tube, bleeding complication, injury to the blood vessel, lungs, nerves, arrhythmia, hypoxia were explained and he consented for the procedure. Left side of the chest was marked with ultrasound, it was cleaned with ChloraPrep; 1% lidocaine infiltration anesthesia was used. With a 16-gauge Angiocath, thoracentesis was done. About 1100 mL of fluid was removed. Then fluid stopped coming and procedure was terminated. He tolerated the procedure well. Pleural fluid is not sent for any studies. Postprocedure chest x-ray ordered to rule out pneumothorax. MD CHAI Soto/bebeto , 03:14 PM , 03:20 PM
[2018-03-19] MEDS ORDERED: Acetaminophen 325 MG Tablet PO PRN (16:44)
[2018-03-19] MEDS ORDERED: Dextrose 50% in Water 50 ML Vial IV.PUSH PRN (16:46)
[2018-03-19] MEDS ORDERED: Melatonin 5 MG Tablet PO PRN (16:47)
--- NOTE | 2018-03-19 17:14 | P.HPIM ---
History of Present Illness Primary Care Physician: Luis Angel Beasley MD History of Present Illness: Mr. Olson is a 77-year male with CAD, CHF with reported EF of 20% , hx of hemorrhagic CVA, diabetes, status post craniectomy due to meningioma, skin cancers, Renal osteodystrophy, parathyroidectomy, cardiac cath, laser eye surgery, transplanted kidney in 1998, CABG 5, atrial fibrillation not on anticoagulation due to hemorrhagic stroke history, and dementia. He has hx of pleural effusion requiring previous thoracentesis. He was [place] [facility] [place] outpt thoracentesis which was performed by Dr. Owen with removal of 1100cc of pleural fluid from the left lung. Post-procedurally the pt was found to have a left-sided pneumothorax, measuring 2.4 cm inferior to the left apex of the parietal pleura. Pt is being admitted for observation to ensure resolution of the pneumothorax. Dr. Owen has already discussed the case with Dr. Joseph in IR should the pt need CT placement this evening. He is due to have a repeat CXR as well for monitoring of the pneumo. Pt denies any SOB or chest pain. History from the patient is limited due to dementia. His family is present at bedside and helps with providing information regarding the pts history as well as review of previous medical records. Past Medical Hx: CAD CHF with reported EF of 20% Recurrent pleural effusions Hx of hemorrhagic CVA Diabetes Hx of meningioma Skin cancers Renal osteodystrophy Atrial fibrillation not on anticoagulation due to hemorrhagic stroke history Dementia Past Surgical Hx: Thoracentesis x 3 Craniectomy for removal of meningioma Parathyroidectomy Cardiac cath YAG laser capsulotomy of lens Transplanted kidney in 1998 CABG 5 Family Hx: Mother with hx of Alzheimer's dementia and hypertension Father with hx of Lymphoma Social Hx: No reported alcohol, tobacco or illicit drug use - Diagnosis (1) Pneumothorax on left Review of Systems All other systems reviewed negative except as stated in HPI, other (limited due to dementia) Cardiovascular: Denies chest pain, Denies generalized swelling, Denies leg swelling, Denies shortness of breath Gastrointestinal: Denies abdominal pain, Denies nausea, Denies vomiting PMFSH - History History Provided By: Significant Other, Medical Record - Medical History Medical History: Medical History (Last Reviewed 01/14/18 @ 15:42 by Estrella Perez) CAD (coronary artery disease) CHF (congestive heart failure) CVA (cerebral vascular accident) Diabetes Hemangioma SHAUNA (renal osteodystrophy) - Surgical History Surgical History: Surgical History (Last Reviewed 01/14/18 @ 15:42 by Estrella Perez) H/O parathyroidectomy History of YAG laser capsulotomy of lens History of cardiac cath Kidney transplanted S/P CABG x 5 Status post laser cataract surgery of both eyes - Family History Family History: Family History (Last Updated 01/14/18 @ 15:43 by Estrella Perez) Mother Alzheimer's dementia Hypertension Father Lymphoma - Tobacco History Second Hand Smoke Exposure: No Smoking Status: Never smoker - Alcohol History How Often Do You Have a Drink Containing Alcohol: Never - Substance Use History Substance History: No History of Abuse - Travel History History of Recent Travel: No Recent Travel in the [place] Within the Last 8 Weeks: No Recent Travel Out of the Country Within the Last 8 Weeks: No Medications and Allergies Allergies Allergy/AdvReac Type Severity Reaction Status Date / Time aspirin Allergy Severe Bleeding Verified 03/19/18 16:59 diclofenac Allergy Severe bleeding Verified 03/19/18 16:59 etodolac Allergy Severe bleeding Verified 03/19/18 16:59 flurbiprofen Allergy Severe bleeding Verified 03/19/18 16:59 haloperidol Allergy Severe Confusion Verified 03/19/18 16:59 ibuprofen Allergy Severe bleeding Verified 03/19/18 16:59 indomethacin Allergy Severe bleeding Verified 03/19/18 16:59 ketoprofen Allergy Severe bleeding Verified 03/19/18 16:59 ketorolac Allergy Severe bleeding Verified 03/19/18 16:59 naproxen Allergy Severe bleeding Verified 03/19/18 16:59 oxaprozin Allergy Severe bleeding Verified 03/19/18 16:59 oxcarbazepine Allergy Severe Bleeding Verified 03/19/18 16:59 Home Medications Medication Instructions Recorded Confirmed Type magnesium oxide-Mg AA chelate 400 mg PO DAILY 01/07/18 03/19/18 History [Magnesium (oxide/AA chelate)] bethanechol chloride 25 mg PO BID 03/19/18 03/19/18 History calcitriol 0.5 mcg PO DAILY 03/19/18 03/19/18 History calcium carbonate [Calcium 500] 500 mg PO BID 03/19/18 03/19/18 History finasteride 5 mg PO DAILY 03/19/18 03/19/18 History hydrocodone-acetaminophen [Hickman] 1 tab PO Q6H PRN 03/19/18 03/19/18 History insulin NPH and regular human 1 sliding scale dose SUBCUT UD 03/19/18 03/19/18 History [Novolin 70/30 U-100 Insulin] isosorbide mononitrate 30 mg PO DAILY 03/19/18 03/19/18 History levetiracetam 500 mg PO BID 03/19/18 03/19/18 History lorazepam [Ativan] 0.5 mg PO DAILY PRN 03/19/18 03/19/18 History melatonin 10 mg PO HS PRN 03/19/18 03/19/18 History metoprolol succinate [Toprol XL] 12.5 mg PO BID 03/19/18 03/19/18 History montelukast 10 mg PO QPM 03/19/18 03/19/18 History ondansetron HCl [Zofran] 8 mg PO TID PRN 03/19/18 03/19/18 History potassium chloride 40 meq PO DAILY 03/19/18 03/19/18 History spironolactone 25 mg PO DAILY 03/19/18 03/19/18 History Active Medications: Active Medications Acetaminophen (Tylenol) 650 mg PO Q4H PRN PRN Reason: Temp > 100.4 Al Hydroxide/Mg Hydroxide (Milk Of Magnesia Liq) 30 ml PO Q12H PRN PRN Reason: Mild Constipation Bethanechol Chloride (Urecholine) 25 mg PO BID KIAN Calcium Carbonate (Oscal) 500 mg PO BID KIAN Dextrose (D50w Vial) 50 ml IV.PUSH UNSCH PRN PRN Reason: PER HYPOGLYCEMIA PROTOCOL Finasteride (Proscar) 5 mg PO DAILY [facility] Glucagon (Glucagon Inj) 1 mg OTHER PRN PRN PRN Reason: for Hypoglycemia Protocol Insulin Aspart (Novolog Insulin Correctional Sugar Inj) 0 unit SQ ACHS KIAN; Protocol Isosorbide Mononitrate (Imdur) 30 mg PO DAILY [facility] Levetiracetam (Keppra) 500 mg PO BID KIAN Metoprolol Succinate (Toprol Xl) 12.5 mg PO BID KIAN Montelukast Sodium (Singulair) 10 mg PO QPM [facility] Non-Formulary Medication (Calcitriol [Calcitriol]) 0.5 mcg PO DAILY KIAN Non-Formulary Medication (Magnesium Oxide-Mg Aa Chelate [Magnesium (Oxide/Aa Chelate)]) 400 mg PO DAILY [facility] Non-Formulary Medication (Melatonin [Melatonin]) 10 mg PO HS PRN PRN Reason: Sleep Non-Formulary Medication (Potassium Chloride [Potassium Chloride]) 40 meq PO DAILY [facility] Ondansetron HCl (Zofran Inj) 4 mg IV.PUSH Q6H PRN PRN Reason: NAUSEA OR VOMITING Senna/Docusate Sodium (Mckenzie-Colace) 1 tab PO BID [facility] Sennosides (Senokot) 17.2 mg PO Q12H PRN PRN Reason: Moderate Constipation Spironolactone (Aldactone) 25 mg PO DAILY [facility] Torsemide (Demadex) 40 mg PO DAILY [facility] Exam Vital signs: Vital Signs 03/19/18 13:17 03/19/18 14:50 03/19/18 15:05 Temperature 97.8 F Pulse Rate 93 H 85 85 Respiratory Rate 20 18 20 Blood Pressure 112/73 103/68 93/68 L Pulse Oximetry 94 L 95 95 03/19/18 15:30 03/19/18 16:27 Temperature Pulse Rate 52 L 95 H Respiratory Rate 20 20 Blood Pressure 94/64 L 88/49 L Pulse Oximetry 93 L 96 Intake & Output 03/18/18 03/19/18 03/19/18 18:59 06:59 18:59 Weight 69.4 kg Other: Weight On Admission 69.4 kg Narrative: GENERAL: NAD, Awake and alert, oriented to self SKIN: Warm and dry. HEENT: Atraumatic. Normocephalic. Pupils equal and round. No scleral icterus. No injection or drainage. No nasal bleeding or discharge. Mucous membranes pink and moist. NECK: Trachea midline. No JVD. CARDIO: Irregular rate and rhythm. RESP: No accessory muscle use. Clear to auscultation. Breath sounds equal bilaterally. ABD: +BS, soft, non-tender, nondistended. Hepatic and splenic margins not palpable. MUSCULOSKELETAL: Extremities without clubbing, cyanosis, or edema. No obvious deformities. NEUROLOGICAL: Awake and alert. No obvious cranial nerve deficits. Motor grossly within normal limits. Five out of 5 muscle strength in the arms and legs. Normal speech. PSYCHIATRIC: Appropriate mood and affect Results - Labs CBC & Chem 7: 03/20/18 04:47 03/20/18 04:47 Labs: Short CBC 03/19/18 Range/Units 13:10 WBC 6.8 (4.0-11.0) th/mm3 Hgb 15.6 (13.0-17.0) gm/dL Hct 48.2 (39.0-51.0) % Plt Count 144 L (150-450) th/mm3 - Imaging Impressions Chest X-Ray 03/19/18 00:00 CONCLUSION: Previous bypass with mild compensated cardiomegaly Chest Ultrasound 03/19/18 13:01 CONCLUSION: 1. Caprini VTE Risk Assessment Caprini VTE Risk Assessment: Moderate/High Risk (score >= 2) Caprini Risk Assessment Model: Point Value = 1 Point Value = 2 Point Value = 3 Point Value = 5 Age 41-60 Minor surgery BMI > 25 kg/m2 Swollen legs Varicose veins or History of unexplained or recurrent spontaneous Oral contraceptives or hormone replacement Sepsis (< 1 month) Serious lung disease, including pneumonia (< 1 month) Abnormal pulmonary function Acute myocardial infarction Congestive heart failure (< 1 month) History of inflammatory bowel disease Medical patient at bed rest Age 61-74 Arthroscopic surgery Major open surgery (> 45 min) Laparoscopic surgery (> 45 min) Malignancy Confined to bed (> 72 hours) Immobilizing plaster cast Central venous access Age >= 75 History of VTE Family history of VTE Factor V Leiden Prothrombin [id number] Lupus anticoagulant Anticardiolipin antibodies Elevated serum homocysteine Heparin-induced thrombocytopenia Other congenital or acquired thrombophilia Stroke (< 1 month) Elective arthroplasty Hip, pelvis, or leg fracture Acute spinal cord injury (< 1 month) Prophylaxis Regimen: Total Risk Factor Score Risk Level Prophylaxis Regimen 0-1 Low Early ambulation 2 Moderate Order ONE of the following: *Sequential Compression Device (SCD) *Heparin 5000 units SQ BID 3-4 Higher Order ONE of the following medications: *Heparin 5000 units SQ TID *Enoxaparin/Lovenox 40 mg SQ daily (WT < 150 kg, CrCl > 30 mL/min) *Enoxaparin/Lovenox 30 mg SQ daily (WT < 150 kg, CrCl > 10-29 mL/min) *Enoxaparin/Lovenox 30 mg SQ BID (WT < 150 kg, CrCl > 30 mL/min) AND/OR *Sequential Compression Device (SCD) 5 or more Highest Order ONE of the following medications: *Heparin 5000 units SQ TID (Preferred with Epidurals) *Enoxaparin/Lovenox 40 mg SQ daily (WT < 150 kg, CrCl > 30 mL/min) *Enoxaparin/Lovenox 30 mg SQ daily (WT < 150 kg, CrCl > 10-29 mL/min) *Enoxaparin/Lovenox 30 mg SQ BID (WT < 150 kg, CrCl > 30 mL/min) AND *Sequential Compression Device (SCD) Assessment and Plan - Assessment (1) Pneumothorax on left Code(s): J93.9 - Pneumothorax, unspecified Status: Acute Plan: Left pneumothorax - Pt is a 77-year male with CAD, CHF with reported EF of 20%, hx of hemorrhagic CVA, diabetes, status post craniectomy due to meningioma, skin cancers, Renal osteodystrophy, parathyroidectomy, cardiac cath, laser eye surgery, transplanted kidney in 1998, CABG 5, atrial fibrillation not on anticoagulation due to hemorrhagic stroke history, and dementia. - He has hx of pleural effusion requiring previous thoracentesis. He was [place] [facility] [place] for an outpt thoracentesis which was performed by Dr. Owen with removal of 1100cc of pleural fluid from the left lung. Post- procedurally the pt was found to have a left-sided pneumothorax, measuring 2.4 cm inferior to the left apex of the parietal pleura. - Pt is being admitted for observation to ensure resolution of the pneumothorax. - Dr. Owen has already discussed the case with Dr. Joseph in IR should the pt need CT placement this evening. - He is due to have a repeat CXR this evening - If CT is to be placed, further management of that per IR - Repeat CXR in AM - Labs in AM - Resume home medications, list given by pts at bedside - Supplemental O2 as needed - Pts and family report that he is a full code - Supportive care - Further recommendations as the case develops - DVT prophylaxis with SCDs CHF, reported EF 20% - Resume home medications - Labs in AM Diabetes mellitus - Hold home insulin - NovoLog SSI - Accu checks The exam, history, and the medical decision-making described in the above note were completed with the assistance of the mid-level provider. I reviewed and agree with the findings presented. I attest that I had a [id number] encounter with the patient on the same day, and personally performed and documented my assessment and findings in the medical record. H&P: Quality - VTE Deep Vein Thrombosis/Pulmonary Embolism Present on Admission: No
--- NOTE | 2018-03-19 17:18 | XR ---
EXAM DATE: 03/19/2018 4:25 PM EDT AGE/SEX: 77 years / Male INDICATIONS: Post left thoracentesis. CLINICAL DATA: This is the patient's initial encounter. Patient reports that signs and symptoms have been present for 1 day and indicates a pain score of Nonresponsive. MEDICAL/SURGICAL HISTORY: Cardiovascular disease. CABG. [place] [facility] [place] 1[place], 03/19/2018. . FINDINGS: A single AP view of the chest demonstrates a small left-sided pneumothorax. This is unchanged from e earlier study. The majority is laterally approaching the subpulmonic area. The apical component is slightly smaller from earlier. No tension component. Right lung is clear. Heart is normal in size. [place] sternotomy wires are noted. CONCLUSION: Stable small left-sided pneumothorax. Dr. Owen is aware of the findings. Electronically signed by: Jesus Joseph MD 03/19/2018 5:16 PM EDT
[2018-03-19] MEDS ORDERED: Montelukast 10 MG Tablet PO SCH (18:00)
[2018-03-19] MEDS: Insulin NovoLOG Aspart Correctional Sugar Inj SQ SCH ×2 (18:16→21:04)
--- NOTE | 2018-03-19 19:35 | MB ---
cc: Rahul Owen MD DATE: 03/19/2018 [id number] with history of CHF, cardiomyopathy and recurrent pleural effusion. The patient was seen in the office, he was found to have left pleural effusion. Yesterday, his daughter called that his shortness of breath was getting worse and he needed to have thoracentesis. The patient was brought as outpatient for thoracentesis. He had a left thoracentesis done; 1100 mL of clear fluid was obtained. After the procedure chest x-ray showed that he has a left pleural effusion. SOCIAL HISTORY: Noncontributory. FAMILY HISTORY: Noncontributory. REVIEW OF SYSTEMS: Feels weak. No shortness of breath, no chest pain. PHYSICAL EXAMINATION: GENERAL: Elderly, frail male; not in any acute distress. VITAL SIGNS: Blood pressure 110/70, heart rate 66, respirations 18, temperature 98. HEENT: Pupils are equal and reactive to light. Oral mucosa and nasal mucosa normal. NECK: Supple. JVP not raised. CHEST: Slightly decreased breath sounds on the left side; has a lesion on the anterior chest wall. CARDIOVASCULAR: S1, S2 normal. ABDOMEN: Benign. EXTREMITIES: No edema. IMPRESSION: 1. Left pneumothorax, status post thoracentesis. 2. Left recurrent pleural effusion. 3. Congestive heart failure. 4. Cardiomyopathy. 5. History of renal transplant. 6. History of cerebrovascular accident. PLAN: I have discussed with the patient and his daughter and his at the bedside, because of the size of the pneumothorax, though he is tolerating it well, the patient will be kept for observation. We will repeat a chest x-ray in about 1 hour. If there is an increasing pneumothorax, then he will need chest catheter placement. I discussed with interventional radiologist, Dr. José Antonio Joseph. I also discussed with Dr. Tsang, who will admit the patient to the hospital. Further treatment will depend on the course in the hospital. Thank you, Dr. Tsang, for this consult. MD CHAI Soto/ld/do , 04:04 PM , 04:12 PM [facility]
[2018-03-19] MEDS: levETIRAcetam 500 MG Tablet PO SCH (21:02)
[2018-03-19] MEDS: Senna/Docusate Sodium 8.6/50 MG Tablet PO SCH (21:03)
[2018-03-19] MEDS: Calcium Carbonate 500 MG Tablet PO SCH (21:03)
[2018-03-20 00:06] VITALS: RESP 18
--- NOTE | 2018-03-20 05:40 | XR ---
EXAM DATE: 03/20/2018 12:00 AM EDT AGE/SEX: 77 years / Male INDICATIONS: Shortness of breath. CLINICAL DATA: This is the patient's subsequent encounter. Patient reports that signs and symptoms h ave been present for 2 days and indicates a pain score of 0/10. MEDICAL/SURGICAL HISTORY: Cardiovascular disease. CABG. COMPARISON: [facility], CHEST 1V SINGLE AP, 03/19/2018. . FINDINGS: The cardiac silhouette is normal in transverse diameter. The left pneumothorax is decreasing in size. There is left lower lobe atelectasis versus pneumonia. The right lung is free of acute parenchymal o pacity. Median sternotomy wires are present. CONCLUSION: Decreasing left pneumothorax. There are no signs of tension. Electronically signed by: Trip Sepulveda MD 03/20/2018 5:39 AM EDT
[2018-03-20 06:15] LABS: Baso % (Auto) 0.5 % (0.0-2.0); Eos # (Auto) 0.1 th/mm3 (0.0-0.4); Eos % (Auto) 1.3 % (0.0-4.0); Hematocrit 47.2 % (39.0-51.0); Hemoglobin 15.5 gm/dL (13.0-17.0); Lymph # (Auto) 0.8 th/mm3 (1.0-4.8); Lymph % (Auto) 11.8 % (9.0-44.0); Mean Corpuscular HGB Conc 32.8 % (32.0-36.0); Mean Corpuscular Hemoglobin 28.7 pg (27.0-34.0); Mean Corpuscular Volume 87.5 fL (80.0-100.0); Mean Platelet Volume 9.4 fL (7.0-11.0); Mono # (Auto) 0.9 th/mm3 (0.0-0.9); Mono % (Auto) 13.5 % (0.0-8.0); Neut # (Auto) 4.9 th/mm3 (1.8-7.7); Neut % (Auto) 72.9 % (16.0-70.0); Platelet Count 136 th/mm3 (150-450); Red Blood Count 5.39 mil/mm3 (4.50-5.90); Red Cell Distribution Width 17.9 % (11.6-17.2); White Blood Count 6.8 th/mm3 (4.0-11.0)
[2018-03-20 06:34] LABS: Calcium 8.5 mg/dL (8.5-10.1); Carbon Dioxide 33.4 meq/L (21.0-32.0); Potassium 4.2 meq/L (3.5-5.1)
[2018-03-20 07:37] VITALS: O2SAT 99
[2018-03-20] MEDS ORDERED: Calcitriol 0.25 MCG Capsule PO SCH (09:00)
[2018-03-20] MEDS ORDERED: Magnesium Oxide 400 MG Tablet PO SCH (09:00)
[2018-03-20] MEDS ORDERED: Finasteride 5 MG Tablet PO SCH (09:00)
[2018-03-20] MEDS ORDERED: Spironolactone 25 MG Tablet PO SCH (09:00)
[2018-03-20] MEDS ORDERED: Torsemide 20 MG Tablet PO SCH (09:00)
[2018-03-20] MEDS ORDERED: POTASSIUM CHLORIDE 40 MEQ PO SCH (09:00)
[2018-03-20] MEDS ORDERED: Isosorbide Mononitrate 30 MG ER 24HR Tablet (Imdur) PO SCH (09:00)
--- NOTE | 2018-03-20 09:39 | P.PNIM ---
Subjective Interval history: eating breakfast on room air. no distress present. Physical Exam Vital signs: Vital Signs 03/19/18 13:17 03/19/18 14:50 03/19/18 15:05 Temperature 97.8 F Pulse Rate 93 H 85 85 Respiratory Rate 20 18 20 Blood Pressure 112/73 103/68 93/68 L Pulse Oximetry 94 L 95 95 03/19/18 15:30 03/19/18 16:27 03/19/18 20:00 Temperature 97.9 F Pulse Rate 52 L 95 H 88 Respiratory Rate 20 20 18 Blood Pressure 94/64 L 88/49 L 96/60 L Pulse Oximetry 93 L 96 03/20/18 00:00 03/20/18 04:00 03/20/18 07:34 Temperature 97.3 F L 98.2 F 98.0 F Pulse Rate 76 83 72 Respiratory Rate 18 18 18 Blood Pressure 109/63 109/57 L 116/58 L Pulse Oximetry 96 94 L 99 Intake & Output 03/19/18 03/20/18 03/20/18 18:59 06:59 18:59 Output Total 550 / 550 Balance -550 / -550 Weight 69.4 kg Output: Urine 550 / 550 Other: Weight On Admission 69.4 kg heart reg lung good air entry. few basilar left crackles abd s/nt ext no edema Results - Labs CBC & Chem 7: 03/20/18 04:47 03/20/18 04:47 Laboratory Results - last 24 hr 03/19/18 03/19/18 03/20/18 13:10 13:10 04:47 WBC 6.8 6.8 RBC 5.52 5.39 Hgb 15.6 15.5 Hct 48.2 47.2 MCV 87.4 87.5 MCH 28.3 28.7 MCHC 32.3 32.8 RDW 17.8 H 17.9 H Plt Count 144 L 136 L MPV 9.1 9.4 Neut % (Auto) 65.6 72.9 H Lymph % (Auto) 16.1 11.8 [place] % (Auto) 15.6 H 13.5 H Eos % (Auto) 2.3 1.3 Baso % (Auto) 0.4 0.5 Neut # (Auto) 4.5 4.9 Lymph # (Auto) 1.1 0.8 L [place] # (Auto) 1.1 H 0.9 Eos # (Auto) 0.2 0.1 Baso # (Auto) 0.0 0.0 WBC Differential . . Differential Comment Auto diff final Auto diff final PT 12.5 H INR 1.2 APTT 30.0 Sodium Potassium Chloride Carbon Dioxide Anion Gap BUN Creatinine Estimated GFR POC Glucose Random Glucose Calcium 03/20/18 03/20/18 04:47 08:22 WBC RBC Hgb Hct MCV MCH MCHC RDW Plt Count MPV Neut % (Auto) Lymph % (Auto) [place] % (Auto) Eos % (Auto) Baso % (Auto) Neut # (Auto) Lymph # (Auto) [place] # (Auto) Eos # (Auto) Baso # (Auto) WBC Differential Differential Comment PT INR APTT Sodium 136 Potassium 4.2 Chloride 95 L Carbon Dioxide 33.4 H Anion Gap 8 BUN 30 H Creatinine 1.59 H Estimated GFR 42 L POC Glucose 210 H Random Glucose 192 H Calcium 8.5 - Imaging Impressions Chest X-Ray 03/19/18 00:00 CONCLUSION: Previous bypass with mild compensated cardiomegaly Chest Ultrasound 03/19/18 13:01 CONCLUSION: 1. Chest X-Ray 03/19/18 16:25 CONCLUSION: Stable small left-sided pneumothorax. Dr. Owen is aware of the findings. Chest X-Ray 03/20/18 00:00 CONCLUSION: Decreasing left pneumothorax. There are no signs of tension. Assessment and Plan - Assessment (1) Pneumothorax on left Code(s): J93.9 - Pneumothorax, unspecified Status: Acute Plan: Left pneumothorax - Pt is a 77-year male with CAD, CHF with reported EF of 20%, hx of hemorrhagic CVA, diabetes, status post craniectomy due to meningioma, skin cancers, Renal osteodystrophy, parathyroidectomy, cardiac cath, laser eye surgery, transplanted kidney in 1998, CABG 5, atrial fibrillation not on anticoagulation due to hemorrhagic stroke history, and dementia. - He has hx of pleural effusion requiring previous thoracentesis. He was brought [place] [facility] [place] for an outpt thoracentesis which was performed by Dr. Owen with removal of 1100cc of pleural fluid from the left lung. Post- procedurally the pt was found to have a left-sided pneumothorax, measuring 2.4 cm inferior to the left apex of the parietal pleura. - Pt is being admitted for observation to ensure resolution of the pneumothorax. cxr. smaller ptx. on room air. pt and asking for dc home this AM discussed with Dr Owen. ok for dc and f/u Saturday at 9:15am. go to ED with increased sob. - CHF, reported EF 20% - Resume home medications Diabetes mellitus - Hold home insulin - NovoLog SSI - Accu checks
[2018-03-20] MEDS: Senna/Docusate Sodium 8.6/50 MG Tablet PO SCH (09:57)
[2018-03-20] MEDS: Calcium Carbonate 500 MG Tablet PO SCH (09:57)
[2018-03-20] MEDS: levETIRAcetam 500 MG Tablet PO SCH (09:57)
[2018-03-20] MEDS: Insulin NovoLOG Aspart Correctional Sugar Inj SQ SCH (09:59)
[2018-03-20 12:02] VITALS: BP 105/55; PULSE 83; TEMP 97.9
== END 2018-03-20 13:12 | disposition home or self-care (01) ==
LOC: HRAD 12:40 → N04 12:40 → HRIP 12:42 → N04 17:28
PROVIDERS: ADMIT Specialist; ATTEND Specialist

== ENCOUNTER 2018-03-25 15:55 | Inpatient (IN) ==
[2018-03-25 16:56] LABS: Baso # (Auto) 0.1 th/mm3 (0.0-0.2); Baso % (Auto) 0.6 % (0.0-2.0); Eos # (Auto) 0.1 th/mm3 (0.0-0.4); Eos % (Auto) 0.8 % (0.0-4.0); Hematocrit 44.2 % (39.0-51.0); Hemoglobin 14.7 gm/dL (13.0-17.0); Lymph # (Auto) 0.7 th/mm3 (1.0-4.8); Lymph % (Auto) 4.4 % (9.0-44.0); Mean Corpuscular HGB Conc 33.3 % (32.0-36.0); Mean Corpuscular Hemoglobin 29.1 pg (27.0-34.0); Mean Corpuscular Volume 87.5 fL (80.0-100.0); Mono # (Auto) 1.4 th/mm3 (0.0-0.9); Mono % (Auto) 8.2 % (0.0-8.0); Neut # (Auto) 14.6 th/mm3 (1.8-7.7); Platelet Count 135 th/mm3 (150-450); Red Blood Count 5.06 mil/mm3 (4.50-5.90); Red Cell Distribution Width 17.1 % (11.6-17.2)
--- NOTE | 2018-03-25 16:56 | ED ---
HPI General Chief complaint: Weakness Stated complaint: SOB Time Seen by Provider: 03/25/18 16:20 Source: patient Mode of arrival: ambulatory Limitations: no limitations History of Present Illness HPI narrative: Is a 77-year-old male presents to the emergency department brought in by EMS for weakness. History of multiple medical problems. Recent admission for pleural effusion requiring pleurocentesis complicated by pneumothorax with overnight admission. Was about a week or so ago. He said he is done okay since then. He walks with a walker with standby assistance, sees physical therapy a couple times a week, lives with his and son. Requires assistance with bathing and toileting. He states he is typically awake. He was not feeling well since about midday today. Feeling rundown and weak. Took a 3-hour nap which is not typical for him. When he got up he was feeling weak, was walking to the bathroom, and his legs without any collapse. Denies hitting his head. Family called EMS. Related Data Home Medications Medication Instructions Recorded Confirmed magnesium oxide-Mg AA chelate 400 mg PO DAILY 01/07/18 03/25/18 [Magnesium (oxide/AA chelate)] bethanechol chloride 25 mg PO BID 03/19/18 03/25/18 calcitriol 0.5 mcg PO DAILY 03/19/18 03/25/18 calcium carbonate [Calcium 500] 500 mg PO BID 03/19/18 03/25/18 finasteride 5 mg PO DAILY 03/19/18 03/25/18 hydrocodone-acetaminophen [[place]] 1 tab PO Q6H PRN 03/19/18 03/25/18 insulin NPH and regular human 1 sliding scale dose SUBCUT UD 03/19/18 03/25/18 [Novolin 70/30 U-100 Insulin] isosorbide mononitrate 30 mg PO DAILY 03/19/18 03/25/18 levetiracetam 500 mg PO BID 03/19/18 03/25/18 lorazepam [Ativan] 0.5 mg PO DAILY PRN 03/19/18 03/25/18 melatonin 10 mg PO HS PRN 03/19/18 03/25/18 metoprolol succinate [Toprol XL] 12.5 mg PO BID 03/19/18 03/25/18 montelukast 10 mg PO QPM 03/19/18 03/25/18 ondansetron HCl [Zofran] 8 mg PO TID PRN 03/19/18 03/25/18 potassium chloride 40 meq PO DAILY 03/19/18 03/25/18 spironolactone 25 mg PO DAILY 03/19/18 03/25/18 Previous Rx's Medication Instructions Recorded torsemide 40 mg PO DAILY #60 tab 01/27/18 Allergies Allergy/AdvReac Type Severity Reaction Status Date / Time aspirin Allergy Severe Bleeding Verified 03/19/18 16:59 diclofenac Allergy Severe bleeding Verified 03/19/18 16:59 etodolac Allergy Severe bleeding Verified 03/19/18 16:59 flurbiprofen Allergy Severe bleeding Verified 03/19/18 16:59 haloperidol Allergy Severe Confusion Verified 03/19/18 16:59 ibuprofen Allergy Severe bleeding Verified 03/19/18 16:59 indomethacin Allergy Severe bleeding Verified 03/19/18 16:59 ketoprofen Allergy Severe bleeding Verified 03/19/18 16:59 ketorolac Allergy Severe bleeding Verified 03/19/18 16:59 naproxen Allergy Severe bleeding Verified 03/19/18 16:59 oxaprozin Allergy Severe bleeding Verified 03/19/18 16:59 oxcarbazepine Allergy Severe Bleeding Verified 03/19/18 16:59 Review of Systems ROS: all other systems reviewed are negative [facility] Medical History Medical History CAD (coronary artery disease) (Acute) CHF (congestive heart failure) (Acute) CVA (cerebral vascular accident) (Acute) Diabetes (Acute) Hemangioma (Acute) SHAUNA (renal osteodystrophy) (Acute) Surgical History Surgical History H/O parathyroidectomy (Acute) History of YAG laser capsulotomy of lens (Acute) History of cardiac cath (Acute) Kidney transplanted (Acute) S/P CABG x 5 (Acute) Status post laser cataract surgery of both eyes (Acute) Family History Family History Mother Alzheimer's dementia Hypertension Father Lymphoma Social History Social History Substance History: No History of Abuse Second Hand Smoke Exposure: No Smoking Status: Never smoker How Often Do You Have a Drink Containing Alcohol: Never Hx Recent Travel: No Recent Travel in [facility] within the Last 8 Weeks: No Immunization History Tetanus Immunization: Unsure Exam Narrative Exam Narrative: GENERAL: Elderly 77-year-old man, lethargic, chronically ill- appearing. SKIN: Focused skin assessment warm/dry. HEAD: Atraumatic. Normocephalic. Temporal wasting. EYES: Pupils equal and round. No scleral icterus. No injection or drainage. ENT: No nasal bleeding or discharge. Mucous membranes pink and moist. NECK: Trachea midline. No JVD. CARDIOVASCULAR: Regular rate and rhythm. No murmur appreciated. RESPIRATORY: No accessory muscle use. Clear to auscultation. Breath sounds equal bilaterally. GASTROINTESTINAL: Abdomen soft, non-tender, nondistended. Hepatic and splenic margins not palpable. MUSCULOSKELETAL: No obvious deformities. No edema. NEUROLOGICAL: Decreased alertness. Arouses with stimulation. No obvious cranial nerve deficits. Motor grossly within normal limits. Normal speech. Course Initial Documented Vital Signs Temperature 98.6 F 03/25/18 16:18 Pulse Rate 100 H 03/25/18 16:18 Respiratory Rate 20 03/25/18 16:18 Pulse Oximetry 98 03/25/18 16:18 Last Documented Vital Signs Temperature 98.6 F 03/25/18 16:18 Pulse Rate 96 H 03/25/18 16:23 Respiratory Rate 18 03/25/18 16:23 Blood Pressure 119/59 L 03/25/18 16:23 Pulse Oximetry 98 03/25/18 17:23 Medical Decision Making MDM Narrative Medical decision making narrative: Is a 77-year-old man, appears chronically ill , here with generalized weakness and lethargy/altered mental status. Multiple medical problems. He has a lot of temporal wasting, is getting pleural effusions from the CHF, my general impression is that he may have some general health status. He has had UTIs in the past. Will check labs, UA, CT given previous bleed, reassess. Plan for admission for UTI for option. Medical Screen Exam Complete: Yes Emergency Medical Condition: Yes Lab Data Lab results reviewed: Yes I reviewed the patient's lab results. Result diagrams: 03/25/18 16:40 03/25/18 16:40 Lab Results 03/25/18 03/25/18 03/25/18 Range/Units 16:40 16:40 16:45 WBC 17.0 H (4.0-11.0) th/mm3 RBC 5.06 (4.50-5.90) mil/mm3 Hgb 14.7 (13.0-17.0) gm/dL Hct 44.2 (39.0-51.0) % MCV 87.5 (80.0-100.0) fL MCH 29.1 (27.0-34.0) pg MCHC 33.3 (32.0-36.0) % RDW 17.1 (11.6-17.2) % Plt Count 135 L (150-450) th/mm3 MPV 9.0 (7.0-11.0) fL Neut % (Auto) 86.0 H (16.0-70.0) % Lymph % (Auto) 4.4 L (9.0-44.0) % [place] % (Auto) 8.2 H (0.0-8.0) % Eos % (Auto) 0.8 (0.0-4.0) % Baso % (Auto) 0.6 (0.0-2.0) % Neut # (Auto) 14.6 H (1.8-7.7) th/mm3 Lymph # (Auto) 0.7 L (1.0-4.8) th/mm3 [place] # (Auto) 1.4 H (0.0-0.9) th/mm3 Eos # (Auto) 0.1 (0.0-0.4) th/mm3 Baso # (Auto) 0.1 (0.0-0.2) th/mm3 WBC Differential . Differential Comment Auto diff final Sodium 136 (136-145) meq/L Potassium 4.3 (3.5-5.1) meq/L Chloride 96 L (98-107) meq/L Carbon Dioxide 30.7 (21.0-32.0) meq/L Anion Gap 9 (5-15) meq/L BUN 38 H (7-18) mg/dL Creatinine 2.08 H (0.60-1.30) mg/dL Estimated GFR 31 L (>89) mL/min Random Glucose 271 H (74-106) mg/dL Calcium 8.1 L (8.5-10.1) mg/dL Magnesium 2.0 (1.5-2.5) mg/dL Total Bilirubin 1.9 H (0.2-1.0) mg/dL AST 23 (15-37) U/L ALT 15 (12-78) U/L Alkaline Phosphatase 127 H (45-117) U/L Troponin I 0.04 (0.02-0.05) ng/mL Total Protein 7.2 (6.4-8.2) g/dL Albumin 2.8 L (3.4-5.0) g/dL Urine Color Yellow (Yellw/Straw) Urine Clarity Cloudy H (Clear) Urine pH 5.0 (5.0-8.5) Ur Specific [place] 1.011 (1.002-1.035) Urine Protein 30 H (Neg-Trace) mg/dL Urine Glucose (UA) Negative (Negative) mg/dL Urine Ketones Negative (Negative) mg/dL Urine Occult Blood Moderate H (Negative) Urine Nitrate Negative (Negative) Urine Bilirubin Negative (Negative) Urine Urobilinogen 4 or greater (Less than 2) mg/dL Ur Leukocyte Esterase Large H (Negative) Urine RBC 4 H (0-3) /hpf Urine WBC 127 H (0-5) /hpf Urine WBC Clumps Many H (None) Amorphous Sediment Rare H (None) /hpf Urine Bacteria Few H (None) /hpf Hyaline Casts 7 (0-3) /lpf Urine Mucus Few H (Occasional) /lpf Micro UA Comment Cath-culture ind Ur Microscopic Review Not Reportable Urine Culture Comments Cath-cult indicated Imaging Data Radiologist's impression: Head CT 03/25/18 16:32 CONCLUSION: 1. No acute intracranial abnormality. 2. Suggestion of a mass in the right frontal extra-axial space measuring 2.9 x 1.3 cm. There is also dural thickening more inferiorly. Contrasted MRI recommended for further characterization. 3. Right-sided craniotomy and encephalomalacia in the right frontal right temporal lobes. . Chest X-Ray 03/25/18 17:32 CONCLUSION: 1. Stable loculated pneumothorax laterally in the left lower lobe. 2. Developing pleural effusion in the region of the left-sided loculated pneumothorax. 3. Right lung remains clear. Discussed CT findings with family, they believe this is likely is a arachnoid cyst. Discharge Plan Discharge Disposition Patient Disposition: 30 Still Patient Physicians Team ED Provider: Efrain Sage Primary Care Provider: Luis Angel Beasley Attending Provider: Vida Holland Discharge Interventions Interventions: Vital Signs Last Done: 03/25/18 16:23 Status ED Status: Admitted Observation Patient
[2018-03-25 17:07] LABS: Amorphous Sediment,Urine Rare /hpf; Bacteria,Urine Few /hpf; Bilirubin,Urine Negative (Negative); Clarity,Urine Cloudy (Clear); Color,Urine Yellow (Yellw/Straw); Glucose,Urine (UA) Negative (Negative); Hyaline Casts,Urine 7 /lpf (0-3); Leukocyte Esterase,Urine Large (Negative); Mucus,Urine Few /lpf (Occasional); Nitrite,Urine Negative (Negative); Specific Gravity,Urine 1.011 (1.002-1.035); Urobilinogen,Urine 4 or Greater mg/dL (Less than 2)
[2018-03-25 17:24] LABS: Alkaline Phosphatase 127 U/L (45-117); Total Protein 7.2 g/dL (6.4-8.2); Troponin I 0.04 ng/mL (0.02-0.05)
[2018-03-25 17:31] LABS: Alanine Aminotransferase 15 U/L (12-78); Albumin 2.8 g/dL (3.4-5.0); Anion Gap 9 meq/L (5-15); Aspartate Aminotransferase 23 U/L (15-37); Blood Urea Nitrogen 38 mg/dL (7-18); Calcium 8.1 mg/dL (8.5-10.1); Carbon Dioxide 30.7 meq/L (21.0-32.0); Chloride 96 meq/L (98-107); Glomerular Filtration Rate 31 mL/min (>89); Glucose,Random 271 mg/dL (74-106); Sodium 136 meq/L (136-145)
[2018-03-25 17:32] LABS: Potassium 4.3 meq/L (3.5-5.1)
--- NOTE | 2018-03-25 17:40 | CT ---
EXAM DATE: 03/25/2018 4:37 PM EDT AGE/SEX: 77 years / Male INDICATIONS: Generalize weakness CLINICAL DATA: This is the patient's initial encounter. Patient reports that signs and symptoms have been present for 1 day and indicates a pain score of 0/10. MEDICAL/SURGICAL HISTORY: Cardiovascular disease. Congestive heart failure. Cerebrovascular disea se. Diabetic CABG. RADIATION DOSE: 34.85 CTDI (mGy) COMPARISON: No prior exams available for comparison. TECHNIQUE: CT of the head without contrast. Using automated exposure control and adjustment of the mA and/or kV according to patient size, radiation dose was kept as low as reasonably achievable to ob tain optimal diagnostic quality images. DICOM format image data is available electronically for revi ew and comparison. FINDINGS: Cerebrum: Encephalomalacia in the right frontal and right temporal lobes. Ex vacuo dilatation of the right lateral ventricle. Cerebral atrophy. There is soft tissue thickening in the region of the righ t frontal dura measuring 1 cm in thickness. More superiorly there is a suggestion of a mass measuring 2.9 x 1.3 cm. The ventricles are normal for age. No evidence of midline shift, mass lesion, hemorrh age or acute infarction. No extraaxial fluid collections are seen. Posterior Fossa: The cerebellum and brainstem are intact. The 4th ventricle is midline. The cerebe llopontine angle is unremarkable. Extracranial: The visualized portion of the orbits is intact. Skull: Previous right craniotomy. Plate and screws along the right frontal calvarium. There are some questionable destructive changes of the calvarium more inferiorly right frontal temporal region. CONCLUSION: 1. No acute intracranial abnormality. 2. Suggestion of a mass in the right frontal extra-axial space measuring 2.9 x 1.3 cm. There is also dural thickening more inferiorly. Contrasted MRI recommended for further characterization. 3. Right-sided craniotomy and encephalomalacia in the right frontal right temporal lobes. . Electronically signed by: Fran Jose MD 03/25/2018 5:12 PM EDT
--- NOTE | 2018-03-25 18:49 | XR ---
EXAM DATE: 03/25/2018 5:32 PM EDT AGE/SEX: 77 years / Male INDICATIONS: Short of breath. CLINICAL DATA: This is the patient's initial encounter. Patient reports that signs and symptoms have been present for 1 day and indicates a pain score of 0/10. MEDICAL/SURGICAL HISTORY: Cardiovascular disease. left thoracentesis. CABG. COMPARISON: [facility] [place], CHEST 1V SINGLE AP, 03/20/2018. . FINDINGS: A single AP view of the chest demonstrates a persistent pneumothorax laterally left lower lobe which now contains some fluid. No midline shift. Right lung remains clear. Heart size is normal. Intact med maria victoria sternotomy wires. Degenerative spurring of the dorsal spine CONCLUSION: 1. Stable loculated pneumothorax laterally in the left lower lobe. 2. Developing pleural effusion in the region of the left-sided loculated pneumothorax. 3. Right lung remains clear. Electronically signed by: Artemio Urena MD 03/25/2018 6:48 PM EDT
--- NOTE | 2018-03-25 19:29 | ECG ---
Date Performed: 03/25/2018 Time Performed: 16:22:10 PTAGE: 77 years EKG: Elliott baseline artifact present unclear underlying rhythm INTRAVENTRICULAR CONDUCTION DELAY POSSIBLE ANTERIOR MYOCARDIAL INFARCTION ABNORMAL ECG Would repeat EKG PREVIOUS TRACING : 01/09/2018 20.32 DOCTOR: Shaquille Pearson Interpretating Date/Time 03/25/2018 19:27:16
[2018-03-25] MEDS ORDERED: Acetaminophen 325 MG Tablet PO PRN (21:23)
[2018-03-25] MEDS ORDERED: LORazepam 0.5 MG Tablet PO PRN (21:27)
[2018-03-25] MEDS ORDERED: Melatonin 5 MG Tablet PO PRN (21:27)
[2018-03-25] MEDS ORDERED: Dextrose 50% in Water 50 ML Vial IV.PUSH PRN (21:29)
[2018-03-25] MEDS ORDERED: Sod Chloride 0.9% Inj 1,000 ML IV.CONT SCH (22:00)
[2018-03-25] MEDS: Calcium Carbonate 500 MG Tablet PO SCH (22:37)
[2018-03-25] MEDS: levETIRAcetam 500 MG Tablet PO SCH (22:37)
--- NOTE | 2018-03-25 22:41 | P.HPIM ---
History of Present Illness Service: [facility] Primary Care Physician: Luis Angel Beasley MD Chief Complaint: weakness, dysuria History of Present Illness: 77-year-old female 77-year-old male with a history of diabetes, CVA, CHF, CAD, CKD, BPH, seizures, anxiety, A. fib and frequent UTIs was brought to the ED by his for weakness and dysuria today. Per the patient's the patient was just experiencing weakness today and very fatigue. Patient states he does complain of burning with urination and increased urination. No fevers or chills documented at home. Patient denies any chest pain, shortness of breath, dizziness or hematuria. Patient does walk with a walker but according to his was very hard to ambulate him today. He does have physical therapy come to his home 3 times a week and last week he underwent a thoracentesis with Dr. Owen, and followed up with him yesterday and was well at this time. Review of Systems All other systems reviewed negative except as stated in HPI [facility] - History History Provided By: Patient - Medical History Medical History: Medical History (Last Reviewed 03/25/18 @ 22:39 by JUAN Valverde) CAD (coronary artery disease) CHF (congestive heart failure) CVA (cerebral vascular accident) Diabetes Hemangioma SHAUNA (renal osteodystrophy) - Surgical History Surgical History: Surgical History (Last Reviewed 03/25/18 @ 22:39 by JUAN Valverde) H/O parathyroidectomy History of YAG laser capsulotomy of lens History of cardiac cath Kidney transplanted S/P CABG x 5 Status post laser cataract surgery of both eyes - Family History Family History: Family History (Last Reviewed 03/25/18 @ 22:39 by JUAN Valverde) Mother Alzheimer's dementia Hypertension Father Lymphoma - Social History I have reviewed the patient's Social History: Yes - Tobacco History Second Hand Smoke Exposure: No Tobacco Use In Past 30 Days: No Smoking Status: Never smoker - Alcohol History How Often Do You Have a Drink Containing Alcohol: Never - Substance Use History Substance History: No History of Abuse - Travel History History of Recent Travel: No Recent Travel in the [facility] Within the Last 8 Weeks: No - Immunization History Tetanus Immunization: Unsure Medications and Allergies Active Medications: Active Medications Acetaminophen (Tylenol) 650 mg PO Q4H PRN PRN Reason: Temp > 100.4 Bethanechol Chloride (Urecholine) 25 mg PO BID [facility] Calcitriol (Rocaltrol) 0.5 mcg PO DAILY [facility] Calcium Carbonate (Oscal) 500 mg PO BID [facility] Dextrose (D50w Vial) 50 ml IV.PUSH UNSCH PRN PRN Reason: PER HYPOGLYCEMIA PROTOCOL Finasteride (Proscar) 5 mg PO DAILY [facility] Glucagon (Glucagon Inj) 1 mg OTHER PRN PRN PRN Reason: for Hypoglycemia Protocol Sodium Chloride (Ns Inj) 1,000 mls @ 70 mls/hr IV.CONT .[id number] [facility] Stop: 03/26/18 12:17 Ceftriaxone Sodium 1,000 mg/ (Sodium Chloride) 100 mls @ 200 mls/hr IV.SIG Q24H [facility] Insulin Aspart (Novolog Insulin Correctional Sugar Inj) 0 unit SQ ACHS KIAN; Protocol Isosorbide Mononitrate (Imdur) 30 mg PO DAILY [facility] Levetiracetam (Keppra) 500 mg PO BID [facility] Lorazepam (Ativan) 0.5 mg PO DAILY PRN PRN Reason: ANXIETY Magnesium Oxide (Mag-Ox) 400 mg PO DAILY [facility] Melatonin (Melatonin) 10 mg PO HS PRN PRN Reason: Sleep Metoprolol Succinate (Toprol Xl) 12.5 mg PO BID [facility] Miscellaneous (Pill Splitter) 1 each OTHER UNSCH PRN PRN Reason: PILL SPLITTER Montelukast Sodium (Singulair) 10 mg PO DAILY@1800 [facility] Ondansetron HCl (Zofran Inj) 4 mg IV.PUSH Q6H PRN PRN Reason: NAUSEA OR VOMITING Potassium Chloride (K-Dur) 40 meq PO DAILY [facility] Sodium Chloride (Ns Flush) 2 ml IV.FLUSH PRN PRN PRN Reason: FLUSH AFTER USING IV ACCESS Spironolactone (Aldactone) 25 mg PO DAILY [facility] Torsemide (Demadex) 40 mg PO DAILY [facility] Allergies Allergy/AdvReac Type Severity Reaction Status Date / Time aspirin Allergy Severe Bleeding Verified 03/19/18 16:59 diclofenac Allergy Severe bleeding Verified 03/19/18 16:59 etodolac Allergy Severe bleeding Verified 03/19/18 16:59 flurbiprofen Allergy Severe bleeding Verified 03/19/18 16:59 haloperidol Allergy Severe Confusion Verified 03/19/18 16:59 ibuprofen Allergy Severe bleeding Verified 03/19/18 16:59 indomethacin Allergy Severe bleeding Verified 03/19/18 16:59 ketoprofen Allergy Severe bleeding Verified 03/19/18 16:59 ketorolac Allergy Severe bleeding Verified 03/19/18 16:59 naproxen Allergy Severe bleeding Verified 03/19/18 16:59 oxaprozin Allergy Severe bleeding Verified 03/19/18 16:59 oxcarbazepine Allergy Severe Bleeding Verified 03/19/18 16:59 Home Medications Medication Instructions Recorded Confirmed Type magnesium oxide-Mg AA chelate 400 mg PO DAILY 01/07/18 03/25/18 History [Magnesium (oxide/AA chelate)] bethanechol chloride 25 mg PO BID 03/19/18 03/25/18 History calcitriol 0.5 mcg PO DAILY 03/19/18 03/25/18 History calcium carbonate [Calcium 500] 500 mg PO BID 03/19/18 03/25/18 History finasteride 5 mg PO DAILY 03/19/18 03/25/18 History hydrocodone-acetaminophen [[place]] 1 tab PO Q6H PRN 03/19/18 03/25/18 History insulin NPH and regular human 1 sliding scale dose SUBCUT UD 03/19/18 03/25/18 History [Novolin 70/30 U-100 Insulin] isosorbide mononitrate 30 mg PO DAILY 03/19/18 03/25/18 History levetiracetam 500 mg PO BID 03/19/18 03/25/18 History lorazepam [Ativan] 0.5 mg PO DAILY PRN 03/19/18 03/25/18 History melatonin 10 mg PO HS PRN 03/19/18 03/25/18 History metoprolol succinate [Toprol XL] 12.5 mg PO BID 03/19/18 03/25/18 History montelukast 10 mg PO QPM 03/19/18 03/25/18 History ondansetron HCl [Zofran] 8 mg PO TID PRN 03/19/18 03/25/18 History potassium chloride 40 meq PO DAILY 03/19/18 03/25/18 History spironolactone 25 mg PO DAILY 03/19/18 03/25/18 History Exam Vital signs: Vital Signs 03/25/18 16:18 03/25/18 16:23 03/25/18 17:23 Temperature 98.6 F Pulse Rate 100 H 96 H Respiratory Rate 20 18 Blood Pressure 119/59 L Pulse Oximetry 98 99 98 03/25/18 21:02 Temperature Pulse Rate 85 Respiratory Rate 16 Blood Pressure 109/50 L Pulse Oximetry 98 Intake & Output 03/25/18 03/25/18 03/26/18 06:59 18:59 06:59 Intake Total 100 / 100 Balance 100 / 100 Weight 78 kg Intake: IV 100 / 100 Rocephin Inj 1,000 MG In NS Inj 100 / 100 100 ML @ 200 mls/hr IV.SIG ONCE ONE Rx#:[id number] Narrative: GENERAL: This is a well-nourished, weak patient, in no apparent distress. SKIN: Warm, dry, intact, no ecchymosis, left chest lesion nondraining EYES: Pupils equal round and reactive, no scleral edema or drainage CARDIOVASCULAR: Regular rate rate and irregular rhythm without murmurs, gallops , or rubs. RESPIRATORY: Clear to auscultation diminished breath sounds at bases, no wheezing or rhonchi noted GASTROINTESTINAL: Abdomen soft, non-tender, nondistended. Normal active bowel sounds, no CVA tenderness MUSCULOSKELETAL: Extremities without clubbing, cyanosis, or edema. NEURO: Alert & Oriented x4 to person, place, time, situation. Moves all ext x4 Results - Labs CBC & Chem 7: 03/25/18 16:40 03/25/18 16:40 Labs: Short CBC 03/25/18 Range/Units 16:40 WBC 17.0 H (4.0-11.0) th/mm3 Hgb 14.7 (13.0-17.0) gm/dL Hct 44.2 (39.0-51.0) % Plt Count 135 L (150-450) th/mm3 BMP 03/25/18 16:40 Sodium 136 Potassium 4.3 Chloride 96 L Carbon Dioxide 30.7 BUN 38 H Creatinine 2.08 H Calcium 8.1 L Cardiac Enzymes 03/25/18 Range/Units 16:40 Troponin I 0.04 (0.02-0.05) ng/mL Liver Function 03/25/18 Range/Units 16:40 Total Bilirubin 1.9 H (0.2-1.0) mg/dL AST 23 (15-37) U/L ALT 15 (12-78) U/L Alkaline Phosphatase 127 H (45-117) U/L Albumin 2.8 L (3.4-5.0) g/dL Urine 03/25/18 Range/Units 16:45 Urine Color Yellow (Yellw/Straw) Urine Clarity Cloudy H (Clear) Urine pH 5.0 (5.0-8.5) Ur Specific [place] 1.011 (1.002-1.035) Urine Protein 30 H (Neg-Trace) mg/dL Urine Glucose (UA) Negative (Negative) mg/dL - Imaging Impressions Head CT 03/25/18 16:32 CONCLUSION: 1. No acute intracranial abnormality. 2. Suggestion of a mass in the right frontal extra-axial space measuring 2.9 x 1.3 cm. There is also dural thickening more inferiorly. Contrasted MRI recommended for further characterization. 3. Right-sided craniotomy and encephalomalacia in the right frontal right temporal lobes. . Chest X-Ray 03/25/18 17:32 CONCLUSION: 1. Stable loculated pneumothorax laterally in the left lower lobe. 2. Developing pleural effusion in the region of the left-sided loculated pneumothorax. 3. Right lung remains clear. Caprini VTE Risk Assessment Caprini VTE Risk Assessment: Moderate/High Risk (score >= 2) Caprini Risk Assessment Model: Point Value = 1 Point Value = 2 Point Value = 3 Point Value = 5 Age 41-60 Minor surgery BMI > 25 kg/m2 Swollen legs Varicose veins or History of unexplained or recurrent spontaneous Oral contraceptives or hormone replacement Sepsis (< 1 month) Serious lung disease, including pneumonia (< 1 month) Abnormal pulmonary function Acute myocardial infarction Congestive heart failure (< 1 month) History of inflammatory bowel disease Medical patient at bed rest Age 61-74 Arthroscopic surgery Major open surgery (> 45 min) Laparoscopic surgery (> 45 min) Malignancy Confined to bed (> 72 hours) Immobilizing plaster cast Central venous access Age >= 75 History of VTE Family history of VTE Factor V Leiden Prothrombin [id number] Lupus anticoagulant Anticardiolipin antibodies Elevated serum homocysteine Heparin-induced thrombocytopenia Other congenital or acquired thrombophilia Stroke (< 1 month) Elective arthroplasty Hip, pelvis, or leg fracture Acute spinal cord injury (< 1 month) Prophylaxis Regimen: Total Risk Factor Score Risk Level Prophylaxis Regimen 0-1 Low Early ambulation 2 Moderate Order ONE of the following: *Sequential Compression Device (SCD) *Heparin 5000 units SQ BID 3-4 Higher Order ONE of the following medications: *Heparin 5000 units SQ TID *Enoxaparin/Lovenox 40 mg SQ daily (WT < 150 kg, CrCl > 30 mL/min) *Enoxaparin/Lovenox 30 mg SQ daily (WT < 150 kg, CrCl > 10-29 mL/min) *Enoxaparin/Lovenox 30 mg SQ BID (WT < 150 kg, CrCl > 30 mL/min) AND/OR *Sequential Compression Device (SCD) 5 or more Highest Order ONE of the following medications: *Heparin 5000 units SQ TID (Preferred with Epidurals) *Enoxaparin/Lovenox 40 mg SQ daily (WT < 150 kg, CrCl > 30 mL/min) *Enoxaparin/Lovenox 30 mg SQ daily (WT < 150 kg, CrCl > 10-29 mL/min) *Enoxaparin/Lovenox 30 mg SQ BID (WT < 150 kg, CrCl > 30 mL/min) AND *Sequential Compression Device (SCD) Assessment and Plan - Plan 77-year-old female 77-year-old male with a history of diabetes, CVA, CHF, CAD, CKD, BPH, seizures, anxiety, A. fib and frequent UTIs was brought to the ED by his for weakness and dysuria today. Sepsis, wbc 17.0, HR 100, source pyelonephritis likely ecoli Urine shows large leukocyte esterase, positive protein, rare bacteria, positive blood -Rocephin IV -Urine culture pending -Labs in a.m. Acute kidney injury on chronic kidney disease Creatinine 2.0, baseline 1.5 -Gentle IVF due to CHF history -Trend creatinine -Avoid nephrotoxins -Consult nephrology if kidneys worsen, patient known to Dr. Pro Weakness, suspect related to kidney infection -PT eval and Treat -Most likely will continue physical therapy at discharge CHF, chronic Last echo September 2017 shows EF 20-25% -Monitor for fluid overload -Continue home diuretics A. fib, chronic EKG reviewed and shows A. fib -Resume home medications -Monitor telemetry Diabetes, chronic -Accu-Cheks with sliding scale insulin -Diabetic diet -Hold home 70/30 for now Seizures, chronic Reorder Home medications DVT prophylaxis: Heparin SQ Discussed Condition With: Patient, patient's and ER physician
[2018-03-26 08:04] LABS: Baso # (Auto) 0.1 th/mm3 (0.0-0.2); Baso % (Auto) 0.2 % (0.0-2.0); Eos % (Auto) 0.1 % (0.0-4.0); Hematocrit 45.2 % (39.0-51.0); Hemoglobin 14.8 gm/dL (13.0-17.0); Lymph # (Auto) 0.7 th/mm3 (1.0-4.8); Lymph % (Auto) 3.1 % (9.0-44.0); Mean Corpuscular HGB Conc 32.8 % (32.0-36.0); Mean Corpuscular Hemoglobin 28.4 pg (27.0-34.0); Mean Corpuscular Volume 86.7 fL (80.0-100.0); Mean Platelet Volume 9.4 fL (7.0-11.0); Mono # (Auto) 1.7 th/mm3 (0.0-0.9); Mono % (Auto) 7.5 % (0.0-8.0); Neut # (Auto) 20.5 th/mm3 (1.8-7.7); Neut % (Auto) 89.1 % (16.0-70.0); Platelet Count 105 th/mm3 (150-450); Red Blood Count 5.22 mil/mm3 (4.50-5.90); Red Cell Distribution Width 17.5 % (11.6-17.2)
[2018-03-26 08:24] LABS: Calcium 8.4 mg/dL (8.5-10.1); Carbon Dioxide 29.9 meq/L (21.0-32.0); Potassium 4.1 meq/L (3.5-5.1)
[2018-03-26] MEDS: Insulin NovoLOG Aspart Correctional Sugar Inj SQ SCH ×4 (08:58→21:59)
[2018-03-26] MEDS ORDERED: Spironolactone 25 MG Tablet PO SCH (09:00)
[2018-03-26] MEDS ORDERED: Torsemide 20 MG Tablet PO SCH (09:00)
[2018-03-26 09:06] LABS: Magnesium 1.9 mg/dL (1.5-2.5)
--- NOTE | 2018-03-26 09:13 | P.PN ---
Subjective Interval history: In bed more awake and alert, family at bedside. Patient with urinary incontinence, has a h/o BPH and with persistent UTIs has seen Dr Lee urology will consult Also kiney function is worsening will consult patient nephrology Dr Pro Physical Exam Vital signs: Vital Signs 03/25/18 16:18 03/25/18 16:23 03/25/18 17:23 Temperature 98.6 F Pulse Rate 100 H 96 H Respiratory Rate 20 18 Blood Pressure 119/59 L Pulse Oximetry 98 99 98 03/25/18 21:02 03/25/18 23:33 03/26/18 04:00 Temperature 98.2 F 98.2 F Pulse Rate 85 76 89 Respiratory Rate 16 17 16 Blood Pressure 109/50 L 103/51 L 102/50 L Pulse Oximetry 98 97 92 L 03/26/18 07:23 03/26/18 08:25 Temperature 98.0 F Pulse Rate 85 80 Respiratory Rate 18 Blood Pressure 107/55 L Pulse Oximetry 96 Intake & Output 03/25/18 03/26/18 03/26/18 18:59 06:59 18:59 Intake Total 100 / 100 Balance 100 / 100 Weight 78 kg 78 kg Intake: IV 100 / 100 Rocephin Inj 1,000 MG In NS Inj 100 / 100 100 ML @ 200 mls/hr IV.SIG ONCE ONE Rx#:[id number] Other: Date of Last Bowel Movement 03/25/18 Weight On Admission 78 kg Narrative: GENERAL: This is a pleasant 77 yo male, weak, well-nourished, in no apparent distress. SKIN: Warm, dry, intact, no ecchymosis, left chest lesion nondraining CARDIOVASCULAR: Regular rate, irregular rhythm without murmurs, gallops, or rubs. RESPIRATORY: Clear to auscultation diminished breath sounds at bases, no wheezing or rhonchi noted GASTROINTESTINAL: Abdomen soft, non-tender, nondistended. Normal active bowel sounds, no CVA tenderness MUSCULOSKELETAL: Extremities without clubbing, cyanosis, or edema. NEURO: Alert & Oriented x4 to person, place, time, situation. Moves all ext x4 - Urinary Catheter Management Straight Cath placed during this visit: yes Reason for continuing: Not indwelling catheter Insertion date: 03/25/18 Insertion time: 17:25 Results - Labs CBC & Chem 7: 03/26/18 05:45 03/26/18 05:45 Laboratory Results - last 24 hr 03/25/18 03/25/18 03/25/18 16:40 16:40 16:45 WBC 17.0 H RBC 5.06 Hgb 14.7 Hct 44.2 MCV 87.5 MCH 29.1 MCHC 33.3 RDW 17.1 Plt Count 135 L MPV 9.0 Neut % (Auto) 86.0 H Lymph % (Auto) 4.4 L [place] % (Auto) 8.2 H Eos % (Auto) 0.8 Baso % (Auto) 0.6 Neut # (Auto) 14.6 H Lymph # (Auto) 0.7 L [place] # (Auto) 1.4 H Eos # (Auto) 0.1 Baso # (Auto) 0.1 WBC Differential . Differential Comment Auto diff final Sodium 136 Potassium 4.3 Chloride 96 L Carbon Dioxide 30.7 Anion Gap 9 BUN 38 H Creatinine 2.08 H Estimated GFR 31 L POC Glucose Random Glucose 271 H Lactic Acid Calcium 8.1 L Phosphorus Magnesium 2.0 Total Bilirubin 1.9 H AST 23 ALT 15 Alkaline Phosphatase 127 H Troponin I 0.04 Total Protein 7.2 Albumin 2.8 L Urine Color Yellow Urine Clarity Cloudy H Urine pH 5.0 Ur Specific [place] 1.011 Urine Protein 30 H Urine Glucose (UA) Negative Urine Ketones Negative Urine Occult Blood Moderate H Urine Nitrate Negative Urine Bilirubin Negative Urine Urobilinogen 4 or greater Ur Leukocyte Esterase Large H Urine RBC 4 H Urine WBC 127 H Urine WBC Clumps Many H Amorphous Sediment Rare H Urine Bacteria Few H Hyaline Casts 7 Urine Mucus Few H Micro UA Comment Cath-culture ind Ur Microscopic Review Not Reportable Urine Culture Comments Cath-cult indicated 03/25/18 03/26/18 03/26/18 21:00 01:23 05:45 WBC 23.0 H RBC 5.22 Hgb 14.8 Hct 45.2 MCV 86.7 MCH 28.4 MCHC 32.8 RDW 17.5 H Plt Count 105 L MPV 9.4 Neut % (Auto) 89.1 H Lymph % (Auto) 3.1 L [place] % (Auto) 7.5 Eos % (Auto) 0.1 Baso % (Auto) 0.2 Neut # (Auto) 20.5 H Lymph # (Auto) 0.7 L [place] # (Auto) 1.7 H Eos # (Auto) 0.0 Baso # (Auto) 0.1 WBC Differential . Differential Comment Auto diff final Sodium Potassium Chloride Carbon Dioxide Anion Gap BUN Creatinine Estimated GFR POC Glucose 299 H Random Glucose Lactic Acid 1.6 Calcium Phosphorus Magnesium Total Bilirubin AST ALT Alkaline Phosphatase Troponin I Total Protein Albumin Urine Color Urine Clarity Urine pH Ur Specific [place] Urine Protein Urine Glucose (UA) Urine Ketones Urine Occult Blood Urine Nitrate Urine Bilirubin Urine Urobilinogen Ur Leukocyte Esterase Urine RBC Urine WBC Urine WBC Clumps Amorphous Sediment Urine Bacteria Hyaline Casts Urine Mucus Micro UA Comment Ur Microscopic Review Urine Culture Comments 03/26/18 03/26/18 03/26/18 05:45 05:45 07:57 WBC RBC Hgb Hct MCV MCH MCHC RDW Plt Count MPV Neut % (Auto) Lymph % (Auto) [place] % (Auto) Eos % (Auto) Baso % (Auto) Neut # (Auto) Lymph # (Auto) [place] # (Auto) Eos # (Auto) Baso # (Auto) WBC Differential Differential Comment Sodium 137 Potassium 4.1 Chloride 97 L Carbon Dioxide 29.9 Anion Gap 10 BUN 43 H Creatinine 2.13 H Estimated GFR 30 L POC Glucose 291 H Random Glucose 297 H Lactic Acid Calcium 8.4 L Phosphorus 4.0 Magnesium 1.9 Total Bilirubin AST ALT Alkaline Phosphatase Troponin I Total Protein Albumin Urine Color Urine Clarity Urine pH Ur Specific [place] Urine Protein Urine Glucose (UA) Urine Ketones Urine Occult Blood Urine Nitrate Urine Bilirubin Urine Urobilinogen Ur Leukocyte Esterase Urine RBC Urine WBC Urine WBC Clumps Amorphous Sediment Urine Bacteria Hyaline Casts Urine Mucus Micro UA Comment Ur Microscopic Review Urine Culture Comments - Imaging Impressions Head CT 03/25/18 16:32 CONCLUSION: 1. No acute intracranial abnormality. 2. Suggestion of a mass in the right frontal extra-axial space measuring 2.9 x 1.3 cm. There is also dural thickening more inferiorly. Contrasted MRI recommended for further characterization. 3. Right-sided craniotomy and encephalomalacia in the right frontal right temporal lobes. . Chest X-Ray 03/25/18 17:32 CONCLUSION: 1. Stable loculated pneumothorax laterally in the left lower lobe. 2. Developing pleural effusion in the region of the left-sided loculated pneumothorax. 3. Right lung remains clear. Assessment and Plan - Plan 77-year-old female 77-year-old male with a history of diabetes, CVA, CHF, CAD, CKD, BPH, seizures, anxiety, A. fib and frequent UTIs was brought to the ED by his for weakness and dysuria today. On admission with Sepsis, wbc 17.0, HR 100, source pyelonephritis likely Ecoli Urine shows large leukocyte esterase, positive protein, rare bacteria, positive blood -Rocephin IV, however patient with worsening leukocytosis, consult id specialist -Urine culture pending -Monitor labs Acute kidney injury on chronic kidney disease Creatinine 2.0, baseline 1.5 -Gentle IVF due to CHF history -Trend creatinine -Avoid nephrotoxins -Consult nephrology as kidney function is worsen, patient known to Dr. Pro Weakness, suspect related to kidney infection -PT eval and Treat -Most likely will continue physical therapy at discharge CHF, chronic Last echo September 2017 shows EF 20-25% -Monitor for fluid overload -Continue home diuretics A. fib, chronic EKG reviewed and shows A. fib -Resume home medications -Monitor telemetry Diabetes, chronic -Accu-Cheks with sliding scale insulin -Diabetic diet -Hold home 70/30 for now Seizures, chronic Reorder Home medications DVT prophylaxis: Heparin SQ Discussed Condition With: Patient, patient's
[2018-03-26] MEDS: levETIRAcetam 500 MG Tablet PO SCH ×2 (10:14→20:38)
[2018-03-26] MEDS: Magnesium Oxide 400 MG Tablet PO SCH (10:14)
[2018-03-26] MEDS: Finasteride 5 MG Tablet PO SCH (10:15)
[2018-03-26] MEDS: Calcium Carbonate 500 MG Tablet PO SCH ×2 (10:15→20:38)
[2018-03-26] MEDS: Heparin - SQ 10,000 UNITS/ML Vial SQ SCH ×2 (10:16→20:33)
[2018-03-26] MEDS: Isosorbide Mononitrate 30 MG ER 24HR Tablet (Imdur) PO SCH (10:28)
[2018-03-26] MEDS: Calcitriol 0.25 MCG Capsule PO SCH (11:07)
--- NOTE | 2018-03-26 12:41 | P.CONID ---
History of Present Illness Service: Infectious disease Consult date: 03/26/18 Requesting Physician: Ayesha Ontiveros Reason for Consult: Evaluate patient with complicated UTI Primary Care Provider: Luis Angel Beasley MD Chief Complaint: weakness, dysuria History of Present Illness: Patient seen and examined. Records reviewed. I got most of the history from the patient's Patient is a 77-year-old male, brought into the hospital for evaluation of weakness, and dysuria that started on the day of admission. He apparently felt very weak and has not been doing his usual activity. Patient normally walks with a walker. He has been very weak on the day of admission that he was not able to ambulate. Patient has known kidney transplant more than 20 years ago, and he has some mild renal insufficiency. He has had urological evaluation about a year ago by Dr. Lee and at that time they did not find any abnormality. He had no evidence of incomplete emptying of his bladder. His cystoscopy was also okay. He has been known to have some prostate enlargement but it is no surgical intervention needs to be done during evaluation. Patient has not had any fever chills or sweats. He denies any nausea or vomiting or any back pain. On presentation he is afebrile. His white count is elevated. His creatinine is 2. His urinalysis is showing pyuria. Patient apparently has had some urinary tract infection in the past, but the last time was when he was admitted back in January and reportedly he had a [place] catheter that was why he developed a UTI. He has not had any problem after that hospitalization. Infectious disease consultation has been requested to assist with evaluation and treatment. [facility] - History History Provided By: Patient - Medical History Medical History: Medical History (Last Reviewed 03/25/18 @ 22:39 by JUAN Valverde) CAD (coronary artery disease) CHF (congestive heart failure) CVA (cerebral vascular accident) Diabetes Hemangioma SHAUNA (renal osteodystrophy) - Surgical History Surgical History: Surgical History (Last Reviewed 03/25/18 @ 22:39 by JUAN Valverde) H/O parathyroidectomy History of YAG laser capsulotomy of lens History of cardiac cath Kidney transplanted S/P CABG x 5 Status post laser cataract surgery of both eyes - Family History Family History: Family History (Last Reviewed 03/25/18 @ 22:39 by JUAN Valverde) Mother Alzheimer's dementia Hypertension Father Lymphoma - Tobacco History Second Hand Smoke Exposure: No Tobacco Use In Past 30 Days: No Smoking Status: Never smoker - Alcohol History How Often Do You Have a Drink Containing Alcohol: Never - Substance Use History Substance History: No History of Abuse - Travel History History of Recent Travel: No Recent Travel in the [facility] Within the Last 8 Weeks: No - Immunization History Tetanus Immunization: Unsure Hx Influenza Vaccine This Season: No Medications and Allergies Active Medications: Active Medications Acetaminophen (Tylenol) 650 mg PO Q4H PRN PRN Reason: Temp > 100.4 Bethanechol Chloride (Urecholine) 25 mg PO BID [facility] Last Admin: 03/26/18 10:16 Dose: 25 mg Calcitriol (Rocaltrol) 0.5 mcg PO DAILY [facility] Last Admin: 03/26/18 11:07 Dose: 0.5 mcg Calcium Carbonate (Oscal) 500 mg PO BID [facility] Last Admin: 03/26/18 10:15 Dose: 500 mg Dextrose (D50w Vial) 50 ml IV.PUSH UNSCH PRN PRN Reason: PER HYPOGLYCEMIA PROTOCOL Finasteride (Proscar) 5 mg PO DAILY [facility] Last Admin: 03/26/18 10:15 Dose: 5 mg Glucagon (Glucagon Inj) 1 mg OTHER PRN PRN PRN Reason: for Hypoglycemia Protocol Heparin Sodium (Porcine) (Heparin Inj) 5,000 units SQ Q12HR [facility] Last Admin: 03/26/18 10:16 Dose: Not Given Ceftriaxone Sodium 1,000 mg/ (Sodium Chloride) 100 mls @ 200 mls/hr IV.SIG Q24H [facility] Last Infusion: 03/26/18 11:28 Dose: Infused Insulin Aspart (Novolog Insulin Correctional Sugar Inj) 0 unit SQ ACHS [facility]; Protocol Last Admin: 03/26/18 08:58 Dose: 5 unit Isosorbide Mononitrate (Imdur) 30 mg PO DAILY [facility] Last Admin: 03/26/18 10:28 Dose: 30 mg Levetiracetam (Keppra) 500 mg PO BID [facility] Last Admin: 03/26/18 10:14 Dose: 500 mg Lorazepam (Ativan) 0.5 mg PO DAILY PRN PRN Reason: ANXIETY Magnesium Oxide (Mag-Ox) 400 mg PO DAILY [facility] Last Admin: 03/26/18 10:14 Dose: 400 mg Melatonin (Melatonin) 10 mg PO HS PRN PRN Reason: Sleep Metoprolol Succinate (Toprol Xl) 12.5 mg PO BID [facility] Last Admin: 03/26/18 10:14 Dose: 12.5 mg Miscellaneous (Pill Splitter) 1 each OTHER UNSCH PRN PRN Reason: PILL SPLITTER Montelukast Sodium (Singulair) 10 mg PO DAILY@1800 [facility] Ondansetron HCl (Zofran Inj) 4 mg IV.PUSH Q6H PRN PRN Reason: NAUSEA OR VOMITING Potassium Chloride (K-Dur) 40 meq PO DAILY [facility] Last Admin: 03/26/18 10:22 Dose: 40 meq Sodium Chloride (Ns Flush) 2 ml IV.FLUSH PRN PRN PRN Reason: FLUSH AFTER USING IV ACCESS Spironolactone (Aldactone) 25 mg PO DAILY [facility] Torsemide (Demadex) 40 mg PO DAILY [facility] Allergies Allergy/AdvReac Type Severity Reaction Status Date / Time aspirin Allergy Severe Bleeding Verified 03/19/18 16:59 diclofenac Allergy Severe bleeding Verified 03/19/18 16:59 etodolac Allergy Severe bleeding Verified 03/19/18 16:59 flurbiprofen Allergy Severe bleeding Verified 03/19/18 16:59 haloperidol Allergy Severe Confusion Verified 03/19/18 16:59 ibuprofen Allergy Severe bleeding Verified 03/19/18 16:59 indomethacin Allergy Severe bleeding Verified 03/19/18 16:59 ketoprofen Allergy Severe bleeding Verified 03/19/18 16:59 ketorolac Allergy Severe bleeding Verified 03/19/18 16:59 naproxen Allergy Severe bleeding Verified 03/19/18 16:59 oxaprozin Allergy Severe bleeding Verified 03/19/18 16:59 oxcarbazepine Allergy Severe Bleeding Verified 03/19/18 16:59 Home Medications Medication Instructions Recorded Confirmed Type magnesium oxide-Mg AA chelate 400 mg PO DAILY 01/07/18 03/25/18 History [Magnesium (oxide/AA chelate)] bethanechol chloride 25 mg PO BID 03/19/18 03/25/18 History calcitriol 0.5 mcg PO DAILY 03/19/18 03/25/18 History calcium carbonate [Calcium 500] 500 mg PO BID 03/19/18 03/25/18 History finasteride 5 mg PO DAILY 03/19/18 03/25/18 History hydrocodone-acetaminophen [[place]] 1 tab PO Q6H PRN 03/19/18 03/25/18 History insulin NPH and regular human 1 sliding scale dose SUBCUT UD 03/19/18 03/25/18 History [Novolin 70/30 U-100 Insulin] isosorbide mononitrate 30 mg PO DAILY 03/19/18 03/25/18 History levetiracetam 500 mg PO BID 03/19/18 03/25/18 History lorazepam [Ativan] 0.5 mg PO DAILY PRN 03/19/18 03/25/18 History melatonin 10 mg PO HS PRN 03/19/18 03/25/18 History metoprolol succinate [Toprol XL] 12.5 mg PO BID 03/19/18 03/25/18 History montelukast 10 mg PO QPM 03/19/18 03/25/18 History ondansetron HCl [Zofran] 8 mg PO TID PRN 03/19/18 03/25/18 History potassium chloride 40 meq PO DAILY 03/19/18 03/25/18 History spironolactone 25 mg PO DAILY 03/19/18 03/25/18 History Exam Vital signs: Vital Signs 03/25/18 16:18 03/25/18 16:23 03/25/18 17:23 Temperature 98.6 F Pulse Rate 100 H 96 H Respiratory Rate 20 18 Blood Pressure 119/59 L Pulse Oximetry 98 99 98 03/25/18 21:02 03/25/18 23:33 03/26/18 04:00 Temperature 98.2 F 98.2 F Pulse Rate 85 76 89 Respiratory Rate 16 17 16 Blood Pressure 109/50 L 103/51 L 102/50 L Pulse Oximetry 98 97 92 L 03/26/18 07:23 03/26/18 08:25 03/26/18 11:40 Temperature 98.0 F 98.3 F Pulse Rate 85 80 88 Respiratory Rate 18 18 Blood Pressure 107/55 L 88/49 L Pulse Oximetry 96 95 Intake & Output 03/25/18 03/26/18 03/26/18 18:59 06:59 18:59 Intake Total 100 / 100 100 / 100 Balance 100 / 100 100 / 100 Weight 78 kg 78 kg Intake: IV 100 / 100 100 / 100 Rocephin Inj 1,000 MG In NS Inj 100 / 100 100 / 100 100 ML @ 200 mls/hr IV.SIG Q24H [facility] Rx#:[id number] Other: # Voids 1 Date of Last Bowel Movement 03/25/18 Weight On Admission 78 kg Narrative: Physical Examination GENERAL: Patient is a thin, well-developed male, awake and alert, not in respiratory distress. SKIN: Cool and dry. No generalized rash, no ecchymoses and no evidence of embolic lesions. he has a mass on his L upper chest with some dried blood. HEAD: Atraumatic. Normocephalic. No temporal wasting, or tenderness. EYES: [place] conjunctiva. No petechia or hemorrhage. Pupils equal, round and reactive to light. Extraocular movements full and intact. No scleral icterus. No injection or drainage. EARS, NOSE AND THROAT: Nose without bleeding or purulent nasal discharge. No sinus tenderness. Mucous membranes slightly dry, he is edentulous. NECK: Trachea midline. Supple and not tender, no meningeal signs CARDIOVASCULAR: Regular rate and rhythm. No murmurs, rubs or gallops heard RESPIRATORY: Clear to auscultation. Breath sounds equal bilaterally. No rales , wheezing or rhonchi ABDOMEN: Soft, nondistended, has diffuse abdominal tenderness.. Bowel sounds present and normoactive. No guarding. No rebound. No organomegaly. EXTREMITIES: No clubbing, cyanosis, or edema.No joint effusion, has good ROM. No calf tenderness. Well perfused and warm. NEUROLOGICAL: Awake and alert. Cranial nerves grossly intact. Motor grossly within normal limits. PSYCHIATRIC: Normal affect, calm and cooperative. LINE: No evidence of infection Results - Labs CBC & Chem 7: 03/26/18 05:45 03/26/18 05:45 Labs: Laboratory Results - last 24 hr 03/25/18 03/25/18 03/25/18 16:40 16:40 16:45 WBC 17.0 H RBC 5.06 Hgb 14.7 Hct 44.2 MCV 87.5 MCH 29.1 MCHC 33.3 RDW 17.1 Plt Count 135 L MPV 9.0 Neut % (Auto) 86.0 H Lymph % (Auto) 4.4 L [place] % (Auto) 8.2 H Eos % (Auto) 0.8 Baso % (Auto) 0.6 Neut # (Auto) 14.6 H Lymph # (Auto) 0.7 L [place] # (Auto) 1.4 H Eos # (Auto) 0.1 Baso # (Auto) 0.1 WBC Differential . Differential Comment Auto diff final Sodium 136 Potassium 4.3 Chloride 96 L Carbon Dioxide 30.7 Anion Gap 9 BUN 38 H Creatinine 2.08 H Estimated GFR 31 L POC Glucose Random Glucose 271 H Lactic Acid Calcium 8.1 L Phosphorus Magnesium 2.0 Total Bilirubin 1.9 H AST 23 ALT 15 Alkaline Phosphatase 127 H Troponin I 0.04 Total Protein 7.2 Albumin 2.8 L Vitamin B12 Urine Color Yellow Urine Clarity Cloudy H Urine pH 5.0 Ur Specific [place] 1.011 Urine Protein 30 H Urine Glucose (UA) Negative Urine Ketones Negative Urine Occult Blood Moderate H Urine Nitrate Negative Urine Bilirubin Negative Urine Urobilinogen 4 or greater Ur Leukocyte Esterase Large H Urine RBC 4 H Urine WBC 127 H Urine WBC Clumps Many H Amorphous Sediment Rare H Urine Bacteria Few H Hyaline Casts 7 Urine Mucus Few H Micro UA Comment Cath-culture ind Ur Microscopic Review Not Reportable Urine Culture Comments Cath-cult indicated 03/25/18 03/26/18 03/26/18 21:00 01:23 05:45 WBC 23.0 H RBC 5.22 Hgb 14.8 Hct 45.2 MCV 86.7 MCH 28.4 MCHC 32.8 RDW 17.5 H Plt Count 105 L MPV 9.4 Neut % (Auto) 89.1 H Lymph % (Auto) 3.1 L [place] % (Auto) 7.5 Eos % (Auto) 0.1 Baso % (Auto) 0.2 Neut # (Auto) 20.5 H Lymph # (Auto) 0.7 L [place] # (Auto) 1.7 H Eos # (Auto) 0.0 Baso # (Auto) 0.1 WBC Differential . Differential Comment Auto diff final Sodium Potassium Chloride Carbon Dioxide Anion Gap BUN Creatinine Estimated GFR POC Glucose 299 H Random Glucose Lactic Acid 1.6 Calcium Phosphorus Magnesium Total Bilirubin AST ALT Alkaline Phosphatase Troponin I Total Protein Albumin Vitamin B12 Urine Color Urine Clarity Urine pH Ur Specific [place] Urine Protein Urine Glucose (UA) Urine Ketones Urine Occult Blood Urine Nitrate Urine Bilirubin Urine Urobilinogen Ur Leukocyte Esterase Urine RBC Urine WBC Urine WBC Clumps Amorphous Sediment Urine Bacteria Hyaline Casts Urine Mucus Micro UA Comment Ur Microscopic Review Urine Culture Comments 03/26/18 03/26/18 03/26/18 05:45 05:45 07:57 WBC RBC Hgb Hct MCV MCH MCHC RDW Plt Count MPV Neut % (Auto) Lymph % (Auto) [place] % (Auto) Eos % (Auto) Baso % (Auto) Neut # (Auto) Lymph # (Auto) [place] # (Auto) Eos # (Auto) Baso # (Auto) WBC Differential Differential Comment Sodium 137 Potassium 4.1 Chloride 97 L Carbon Dioxide 29.9 Anion Gap 10 BUN 43 H Creatinine 2.13 H Estimated GFR 30 L POC Glucose 291 H Random Glucose 297 H Lactic Acid Calcium 8.4 L Phosphorus 4.0 Magnesium 1.9 Total Bilirubin AST ALT Alkaline Phosphatase Troponin I Total Protein Albumin Vitamin B12 349 Urine Color Urine Clarity Urine pH Ur Specific [place] Urine Protein Urine Glucose (UA) Urine Ketones Urine Occult Blood Urine Nitrate Urine Bilirubin Urine Urobilinogen Ur Leukocyte Esterase Urine RBC Urine WBC Urine WBC Clumps Amorphous Sediment Urine Bacteria Hyaline Casts Urine Mucus Micro UA Comment Ur Microscopic Review Urine Culture Comments 03/26/18 11:43 WBC RBC Hgb Hct MCV MCH MCHC RDW Plt Count MPV Neut % (Auto) Lymph % (Auto) [place] % (Auto) Eos % (Auto) Baso % (Auto) Neut # (Auto) Lymph # (Auto) [place] # (Auto) Eos # (Auto) Baso # (Auto) WBC Differential Differential Comment Sodium Potassium Chloride Carbon Dioxide Anion Gap BUN Creatinine Estimated GFR POC Glucose 271 H Random Glucose Lactic Acid Calcium Phosphorus Magnesium Total Bilirubin AST ALT Alkaline Phosphatase Troponin I Total Protein Albumin Vitamin B12 Urine Color Urine Clarity Urine pH Ur Specific [place] Urine Protein Urine Glucose (UA) Urine Ketones Urine Occult Blood Urine Nitrate Urine Bilirubin Urine Urobilinogen Ur Leukocyte Esterase Urine RBC Urine WBC Urine WBC Clumps Amorphous Sediment Urine Bacteria Hyaline Casts Urine Mucus Micro UA Comment Ur Microscopic Review Urine Culture Comments - Imaging Impressions Head CT 03/25/18 16:32 CONCLUSION: 1. No acute intracranial abnormality. 2. Suggestion of a mass in the right frontal extra-axial space measuring 2.9 x 1.3 cm. There is also dural thickening more inferiorly. Contrasted MRI recommended for further characterization. 3. Right-sided craniotomy and encephalomalacia in the right frontal right temporal lobes. Chest X-Ray 03/25/18 17:32 CONCLUSION: 1. Stable loculated pneumothorax laterally in the left lower lobe. 2. Developing pleural effusion in the region of the left-sided loculated pneumothorax. 3. Right lung remains clear. Assessment and Plan - Plan Impression UTI, patient S/P renal transplant, known BPH Renal insufficiency, post transplant >20 years ago Hx CHF [place] effusions Mass L upper chest Recommendation Check bladder scan IV Zosyn Follow C/S and adjust Abx Renal US - may need CT A/P Urology has been consulted Monitor progress I will follow along with you Thank you for this consultation Explained plan to family and patient
[2018-03-26] MEDS: Piperacil/Tazo 2.25 GM Premix 50 ML IV.SIG SCH ×2 (14:30→20:32)
--- NOTE | 2018-03-26 15:09 | P.CONURO ---
History of Present Illness Service: Urology Consult date: 03/26/18 Requesting Physician: Ayesha Ontiveros Reason for Consult: UTI Primary Care Provider: Luis Angel Beasley MD Chief Complaint: weakness, dysuria History of Present Illness: 77-year-old male with a history of diabetes, CVA, CHF, CAD, CKD, BPH, seizures, anxiety, A. fib and frequent UTIs was brought to the ED by his for weakness and dysuria. As per patient's the patient was just experiencing weakness today and very fatigue. Patient states he does complain of burning with urination and increased frequency. No fevers or chills documented at home. Patient denies any chest pain, shortness of breath, dizziness or hematuria. Patient does walk with a walker but according to his was very hard to ambulate him today. He also had AMS. Pt is being followed by Dr Lee for recurrent UTIs and BPH. he was also seen by Dr John 6-7y/a for recurrent UTIs as well and BPH with retention. As per pt;s they prefer to f /u with Dr Lee He has elevated white count. Cr is 2.13 but he has a h/o kidney transplant due to CKD. He is on IV antbx, + UC for Gm-rods. PT IS STILL SOMNOLENT BUT PER HE RESPONDS TO ANTBX AND FEELS BETTER. As per pt's he has no issues to void. ID is on board and imaging studies ordered Review of Systems All other systems reviewed negative except as stated in HPI PMFSH - History History Provided By: Patient - Medical History Medical History: Medical History (Last Reviewed 03/25/18 @ 22:39 by JUAN Valverde) CAD (coronary artery disease) CHF (congestive heart failure) CVA (cerebral vascular accident) Diabetes Hemangioma SHAUNA (renal osteodystrophy) - Surgical History Surgical History: Surgical History (Last Reviewed 03/25/18 @ 22:39 by JUAN Valverde) H/O parathyroidectomy History of YAG laser capsulotomy of lens History of cardiac cath Kidney transplanted S/P CABG x 5 Status post laser cataract surgery of both eyes - Family History Family History: Family History (Last Reviewed 03/25/18 @ 22:39 by JUAN Valverde) Mother Alzheimer's dementia Hypertension Father Lymphoma - Tobacco History Second Hand Smoke Exposure: No Tobacco Use In Past 30 Days: No Smoking Status: Never smoker - Alcohol History How Often Do You Have a Drink Containing Alcohol: Never - Substance Use History Substance History: No History of Abuse - Travel History History of Recent Travel: No Recent Travel in the [facility] Within the Last 8 Weeks: No - Immunization History Tetanus Immunization: Unsure Hx Influenza Vaccine This Season: No Medications and Allergies Active Medications: Active Medications Acetaminophen (Tylenol) 650 mg PO Q4H PRN PRN Reason: Temp > 100.4 Bethanechol Chloride (Urecholine) 25 mg PO BID [facility] Last Admin: 03/26/18 10:16 Dose: 25 mg Calcitriol (Rocaltrol) 0.5 mcg PO DAILY [facility] Last Admin: 03/26/18 11:07 Dose: 0.5 mcg Calcium Carbonate (Oscal) 500 mg PO BID [facility] Last Admin: 03/26/18 10:15 Dose: 500 mg Dextrose (D50w Vial) 50 ml IV.PUSH UNSCH PRN PRN Reason: PER HYPOGLYCEMIA PROTOCOL Finasteride (Proscar) 5 mg PO DAILY [facility] Last Admin: 03/26/18 10:15 Dose: 5 mg Glucagon (Glucagon Inj) 1 mg OTHER PRN PRN PRN Reason: for Hypoglycemia Protocol Heparin Sodium (Porcine) (Heparin Inj) 5,000 units SQ Q12HR [facility] Last Admin: 03/26/18 10:16 Dose: Not Given Piperacillin/Tazobactam/Dextrose (Zosyn 2.25 Gm Premix) 50 mls @ 100 mls/hr IV.SIG Q6H [facility] Insulin Aspart (Novolog Insulin Correctional Sugar Inj) 0 unit SQ ACHS [facility]; Protocol Last Admin: 03/26/18 13:13 Dose: 7 unit Isosorbide Mononitrate (Imdur) 30 mg PO DAILY [facility] Last Admin: 03/26/18 10:28 Dose: 30 mg Levetiracetam (Keppra) 500 mg PO BID [facility] Last Admin: 03/26/18 10:14 Dose: 500 mg Lorazepam (Ativan) 0.5 mg PO DAILY PRN PRN Reason: ANXIETY Magnesium Oxide (Mag-Ox) 400 mg PO DAILY [facility] Last Admin: 03/26/18 10:14 Dose: 400 mg Melatonin (Melatonin) 10 mg PO HS PRN PRN Reason: Sleep Metoprolol Succinate (Toprol Xl) 12.5 mg PO BID [facility] Last Admin: 03/26/18 10:14 Dose: 12.5 mg Miscellaneous (Pill Splitter) 1 each OTHER UNSCH PRN PRN Reason: PILL SPLITTER Montelukast Sodium (Singulair) 10 mg PO DAILY@1800 [facility] Ondansetron HCl (Zofran Inj) 4 mg IV.PUSH Q6H PRN PRN Reason: NAUSEA OR VOMITING Potassium Chloride (K-Dur) 40 meq PO DAILY [facility] Last Admin: 03/26/18 10:22 Dose: 40 meq Sodium Chloride (Ns Flush) 2 ml IV.FLUSH PRN PRN PRN Reason: FLUSH AFTER USING IV ACCESS Spironolactone (Aldactone) 25 mg PO DAILY [facility] Torsemide (Demadex) 40 mg PO DAILY [facility] Allergies Allergy/AdvReac Type Severity Reaction Status Date / Time aspirin Allergy Severe Bleeding Verified 03/19/18 16:59 diclofenac Allergy Severe bleeding Verified 03/19/18 16:59 etodolac Allergy Severe bleeding Verified 03/19/18 16:59 flurbiprofen Allergy Severe bleeding Verified 03/19/18 16:59 haloperidol Allergy Severe Confusion Verified 03/19/18 16:59 ibuprofen Allergy Severe bleeding Verified 03/19/18 16:59 indomethacin Allergy Severe bleeding Verified 03/19/18 16:59 ketoprofen Allergy Severe bleeding Verified 03/19/18 16:59 ketorolac Allergy Severe bleeding Verified 03/19/18 16:59 naproxen Allergy Severe bleeding Verified 03/19/18 16:59 oxaprozin Allergy Severe bleeding Verified 03/19/18 16:59 oxcarbazepine Allergy Severe Bleeding Verified 03/19/18 16:59 Home Medications Medication Instructions Recorded Confirmed Type magnesium oxide-Mg AA chelate 400 mg PO DAILY 01/07/18 03/25/18 History [Magnesium (oxide/AA chelate)] bethanechol chloride 25 mg PO BID 03/19/18 03/25/18 History calcitriol 0.5 mcg PO DAILY 03/19/18 03/25/18 History calcium carbonate [Calcium 500] 500 mg PO BID 03/19/18 03/25/18 History finasteride 5 mg PO DAILY 03/19/18 03/25/18 History hydrocodone-acetaminophen [[place]] 1 tab PO Q6H PRN 03/19/18 03/25/18 History insulin NPH and regular human 1 sliding scale dose SUBCUT UD 03/19/18 03/25/18 History [Novolin 70/30 U-100 Insulin] isosorbide mononitrate 30 mg PO DAILY 03/19/18 03/25/18 History levetiracetam 500 mg PO BID 03/19/18 03/25/18 History lorazepam [Ativan] 0.5 mg PO DAILY PRN 03/19/18 03/25/18 History melatonin 10 mg PO HS PRN 03/19/18 03/25/18 History metoprolol succinate [Toprol XL] 12.5 mg PO BID 03/19/18 03/25/18 History montelukast 10 mg PO QPM 03/19/18 03/25/18 History ondansetron HCl [Zofran] 8 mg PO TID PRN 03/19/18 03/25/18 History potassium chloride 40 meq PO DAILY 03/19/18 03/25/18 History spironolactone 25 mg PO DAILY 03/19/18 03/25/18 History Physical Exam Vital Signs - 24 hr 03/25/18 16:18 03/25/18 16:23 03/25/18 17:23 Temperature 98.6 F Pulse Rate 100 H 96 H Respiratory Rate 20 18 Blood Pressure 119/59 L Pulse Oximetry 98 99 98 03/25/18 21:02 03/25/18 23:33 03/26/18 04:00 Temperature 98.2 F 98.2 F Pulse Rate 85 76 89 Respiratory Rate 16 17 16 Blood Pressure 109/50 L 103/51 L 102/50 L Pulse Oximetry 98 97 92 L 03/26/18 07:23 03/26/18 08:00 03/26/18 08:25 Temperature 98.0 F Pulse Rate 85 85 80 Respiratory Rate 18 Blood Pressure 107/55 L Pulse Oximetry 96 03/26/18 09:00 03/26/18 11:40 Temperature 98.3 F Pulse Rate 85 88 Respiratory Rate 18 Blood Pressure 88/49 L Pulse Oximetry 95 Physical Exam: GENERAL: This is a well-nourished, well-developed patient, in no apparent distress. SKIN: No rashes, ecchymoses or lesions. Cool and dry. HEAD: Atraumatic. Normocephalic. CARDIOVASCULAR: Regular rate and rhythm without murmurs, gallops, or rubs. RESPIRATORY: Clear to auscultation. Breath sounds equal bilaterally. No wheezes , rales, or rhonchi. GASTROINTESTINAL: Abdomen soft, non-tender, nondistended. GENITOURINARY: No CVAT MUSCULOSKELETAL: Extremities without clubbing, cyanosis, or edema. NEUROLOGICAL: Awake and alert. Laboratory Results - last 24 hr 03/25/18 03/25/18 03/25/18 16:40 16:40 16:45 WBC 17.0 H RBC 5.06 Hgb 14.7 Hct 44.2 MCV 87.5 MCH 29.1 MCHC 33.3 RDW 17.1 Plt Count 135 L MPV 9.0 Neut % (Auto) 86.0 H Lymph % (Auto) 4.4 L [place] % (Auto) 8.2 H Eos % (Auto) 0.8 Baso % (Auto) 0.6 Neut # (Auto) 14.6 H Lymph # (Auto) 0.7 L [place] # (Auto) 1.4 H Eos # (Auto) 0.1 Baso # (Auto) 0.1 WBC Differential . Differential Comment Auto diff final Sodium 136 Potassium 4.3 Chloride 96 L Carbon Dioxide 30.7 Anion Gap 9 BUN 38 H Creatinine 2.08 H Estimated GFR 31 L POC Glucose Random Glucose 271 H Lactic Acid Calcium 8.1 L Phosphorus Magnesium 2.0 Total Bilirubin 1.9 H AST 23 ALT 15 Alkaline Phosphatase 127 H Troponin I 0.04 Total Protein 7.2 Albumin 2.8 L Vitamin B12 Urine Color Yellow Urine Clarity Cloudy H Urine pH 5.0 Ur Specific [place] 1.011 Urine Protein 30 H Urine Glucose (UA) Negative Urine Ketones Negative Urine Occult Blood Moderate H Urine Nitrate Negative Urine Bilirubin Negative Urine Urobilinogen 4 or greater Ur Leukocyte Esterase Large H Urine RBC 4 H Urine WBC 127 H Urine WBC Clumps Many H Amorphous Sediment Rare H Urine Bacteria Few H Hyaline Casts 7 Urine Mucus Few H Micro UA Comment Cath-culture ind Ur Microscopic Review Not Reportable Urine Culture Comments Cath-cult indicated 03/25/18 03/26/18 03/26/18 21:00 01:23 05:45 WBC 23.0 H RBC 5.22 Hgb 14.8 Hct 45.2 MCV 86.7 MCH 28.4 MCHC 32.8 RDW 17.5 H Plt Count 105 L MPV 9.4 Neut % (Auto) 89.1 H Lymph % (Auto) 3.1 L [place] % (Auto) 7.5 Eos % (Auto) 0.1 Baso % (Auto) 0.2 Neut # (Auto) 20.5 H Lymph # (Auto) 0.7 L [place] # (Auto) 1.7 H Eos # (Auto) 0.0 Baso # (Auto) 0.1 WBC Differential . Differential Comment Auto diff final Sodium Potassium Chloride Carbon Dioxide Anion Gap BUN Creatinine Estimated GFR POC Glucose 299 H Random Glucose Lactic Acid 1.6 Calcium Phosphorus Magnesium Total Bilirubin AST ALT Alkaline Phosphatase Troponin I Total Protein Albumin Vitamin B12 Urine Color Urine Clarity Urine pH Ur Specific [place] Urine Protein Urine Glucose (UA) Urine Ketones Urine Occult Blood Urine Nitrate Urine Bilirubin Urine Urobilinogen Ur Leukocyte Esterase Urine RBC Urine WBC Urine WBC Clumps Amorphous Sediment Urine Bacteria Hyaline Casts Urine Mucus Micro UA Comment Ur Microscopic Review Urine Culture Comments 03/26/18 03/26/18 03/26/18 05:45 05:45 07:57 WBC RBC Hgb Hct MCV MCH MCHC RDW Plt Count MPV Neut % (Auto) Lymph % (Auto) [place] % (Auto) Eos % (Auto) Baso % (Auto) Neut # (Auto) Lymph # (Auto) [place] # (Auto) Eos # (Auto) Baso # (Auto) WBC Differential Differential Comment Sodium 137 Potassium 4.1 Chloride 97 L Carbon Dioxide 29.9 Anion Gap 10 BUN 43 H Creatinine 2.13 H Estimated GFR 30 L POC Glucose 291 H Random Glucose 297 H Lactic Acid Calcium 8.4 L Phosphorus 4.0 Magnesium 1.9 Total Bilirubin AST ALT Alkaline Phosphatase Troponin I Total Protein Albumin Vitamin B12 349 Urine Color Urine Clarity Urine pH Ur Specific [place] Urine Protein Urine Glucose (UA) Urine Ketones Urine Occult Blood Urine Nitrate Urine Bilirubin Urine Urobilinogen Ur Leukocyte Esterase Urine RBC Urine WBC Urine WBC Clumps Amorphous Sediment Urine Bacteria Hyaline Casts Urine Mucus Micro UA Comment Ur Microscopic Review Urine Culture Comments 03/26/18 11:43 WBC RBC Hgb Hct MCV MCH MCHC RDW Plt Count MPV Neut % (Auto) Lymph % (Auto) [place] % (Auto) Eos % (Auto) Baso % (Auto) Neut # (Auto) Lymph # (Auto) [place] # (Auto) Eos # (Auto) Baso # (Auto) WBC Differential Differential Comment Sodium Potassium Chloride Carbon Dioxide Anion Gap BUN Creatinine Estimated GFR POC Glucose 271 H Random Glucose Lactic Acid Calcium Phosphorus Magnesium Total Bilirubin AST ALT Alkaline Phosphatase Troponin I Total Protein Albumin Vitamin B12 Urine Color Urine Clarity Urine pH Ur Specific [place] Urine Protein Urine Glucose (UA) Urine Ketones Urine Occult Blood Urine Nitrate Urine Bilirubin Urine Urobilinogen Ur Leukocyte Esterase Urine RBC Urine WBC Urine WBC Clumps Amorphous Sediment Urine Bacteria Hyaline Casts Urine Mucus Micro UA Comment Ur Microscopic Review Urine Culture Comments Microbiology 03/25/18 16:45 Urine Culture - Preliminary Catheterized Urine gram negative rods Result Diagrams: 03/26/18 05:45 03/26/18 05:45 Imaging: ITS Impressions Head CT 03/25/18 16:32 CONCLUSION: 1. No acute intracranial abnormality. 2. Suggestion of a mass in the right frontal extra-axial space measuring 2.9 x 1.3 cm. There is also dural thickening more inferiorly. Contrasted MRI recommended for further characterization. 3. Right-sided craniotomy and encephalomalacia in the right frontal right temporal lobes. . Chest X-Ray 03/25/18 17:32 CONCLUSION: 1. Stable loculated pneumothorax laterally in the left lower lobe. 2. Developing pleural effusion in the region of the left-sided loculated pneumothorax. 3. Right lung remains clear. Assessment and Plan - Plan 77y.o M with history as per HPI - Continue care as per primary team and ID - Follow up on final UC and treat as per C&S - No acute intervention needed - Agree with Renal US - He also needs a bladder scan to make sure he is able to empty bladder well If in retention needs mcintyre placement - Continue Proscar and add Flomax daily For additional recommendations contact Dr Lee Discussed Condition With: Dr Vickey CASSIDY attending
--- NOTE | 2018-03-26 15:18 | MB ---
cc: Mariano Lee Russell DO DATE: 03/26/2018 Mr Olson is a patient known to me with history of benign prostatic hypertrophy with obstruction and recurrent urinary tract infections with history of kidney transplant in the past. He was admitted last month and was up on the rehab floor and then was discharged later. Prior to this admission, he noted weakness and fell and was brought in by the ambulance. He does have frequent urination during the day and notes 3 times at night. He also wears a diaper at night. He is walking, but limited and requires a walker at the present time. He did state he had a thoracentesis last week, resulting in a left pneumothorax. He denies any shortness of breath or chest pain at the moment. He does have some dysuria and frequency. PAST MEDICAL HISTORY: Noted for history of kidney transplant, BPH with obstruction, coronary artery disease, CHF, CVA, diabetes, hemangioma, renal osteodystrophy. PAST SURGICAL HISTORY: Kidney transplant, CABG x5, laser cataract surgery, parathyroidectomy. FAMILY HISTORY: No family history of prostate cancer is noted. Hypertension and dementia is noted. Father with lymphoma. SOCIAL HISTORY: Denies smoking. Drinks socially and no drug abuse. REVIEW OF SYSTEMS: Weakness, dysuria, urinary frequency with some incontinence at night, nocturia. Denies chest pain, shortness of breath at present. Denies psychiatric problems. Denies headaches. Remaining review of systems were reviewed and were negative for allergies. ALLERGIES: Please refer to the chart. MEDICATIONS: Please refer to the chart. PHYSICAL EXAMINATION: VITAL SIGNS: Temperature 98.3, heart rate 88, respiratory rate 18, 88/24 is his blood pressure, 95% on room air. GENERAL: He is a thin 77-year-old male in no acute distress. HEENT: Normocephalic, atraumatic. Pupils equal, round and reactive to light. Extraocular movements are intact. NECK: Supple. HEART: Regular rate and rhythm. LUNGS: Clear. ABDOMEN: Soft, nontender, nondistended. GENITOURINARY: Normal phallus. Testes descended. EXTREMITIES: Show no cyanosis, clubbing, or edema. NEUROLOGIC: Cranial nerves 2-12 are intact, white count 23,000, hemoglobin 14.8, hematocrit 45.2, platelet count of 105. Sodium 137, potassium 4.1, chloride 97, CO2 of 29, BUN of 43, creatinine 2.1, glucose of 297, urine culture shows gram-negative rods. ASSESSMENT AND PLAN: A 77-year-old male with history of benign prostatic hypertrophy with obstruction and kidney transplant with recurrent urinary tract infections. Recommend bladder scanning and checking postvoid residual. If postvoid residuals are higher than 200, would place a Mackenzie catheter and leave to drainage, will obtain a renal bladder ultrasound. Continue Proscar and Bethanechol, will start saw palmetto on an outpatient basis as this does not cause postural hypotension. We will follow with you. Thank you for the consult. DO VLAD Badillo/keiry , 02:47 PM , 02:58 PM
--- NOTE | 2018-03-26 16:18 | P.CONNP ---
History of Present Illness Service: Nephrology Consult date: 03/26/18 Requesting Physician: Ayesha Ontiveros Reason for Consult: Acute on Chronic Renal insufficiency Primary Care Provider: Luis Angel Beasley MD Chief Complaint: weakness, dysuria History of Present Illness: The patient is a 77yo [place] male who is known to our services for CKD. He was brought into this facility by his on 03/25 for worsening weakness, fatigue , and dysuria which occurred suddenly that day. He has hx of recurrent UTIs and urinary retention for which he follows with Dr. John. He was last seen by our services during his last admission in January where he was being treated for cardiorenal syndrome. He was discharged to [facility] on with a SCr of 1.48 and eGFR 48. SCr on 03/20/18 was 1.59 eGFR 42 (admitted here for observation for PTX post thoracentesis). Admitting SCr on 03/25 at 2.08 with eGFR 31 that worsened slightly to 2.13 and eGFR 30 at consultation. 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 Has been on Torsemide 40mg QD and Spironolactone 25mg QD since his discharge in January as per cardiology (not had outpatient appointment with our office since discharge). Overall doing well on this, but the reports that his appetite has been poor and has not been keeping up with his fluids as he should. Denies any NSAIDs at home. He is a renal transplant recipient, but not on immunosuppressives 2/2 to graft tolerance. Review of Systems Constitutional: Reports anorexia, Reports lack of energy, Reports weakness, Reports weight loss Genitourinary: Reports difficulty urinating, Reports painful urination PMFSH - History History Provided By: Patient - Medical History Medical History: Medical History (Last Updated 03/26/18 @ 16:21 by NANI French) Chronic kidney disease, stage III (moderate) CAD (coronary artery disease) CHF (congestive heart failure) CVA (cerebral vascular accident) Diabetes Hemangioma SHAUNA (renal osteodystrophy) - Surgical History Surgical History: Surgical History (Last Reviewed 03/25/18 @ 22:39 by JUAN Valverde) H/O parathyroidectomy History of YAG laser capsulotomy of lens History of cardiac cath Kidney transplanted S/P CABG x 5 Status post laser cataract surgery of both eyes - Family History Family History: Family History (Last Reviewed 03/25/18 @ 22:39 by JUAN Valverde) Mother Alzheimer's dementia Hypertension Father Lymphoma - Tobacco History Second Hand Smoke Exposure: No Tobacco Use In Past 30 Days: No Smoking Status: Never smoker - Alcohol History How Often Do You Have a Drink Containing Alcohol: Never - Substance Use History Substance History: No History of Abuse - Travel History History of Recent Travel: No Recent Travel in the [place] Within the Last 8 Weeks: No - Immunization History Tetanus Immunization: Unsure Hx Influenza Vaccine This Season: No Medications and Allergies Active Medications: Active Medications Acetaminophen (Tylenol) 650 mg PO Q4H PRN PRN Reason: Temp > 100.4 Bethanechol Chloride (Urecholine) 25 mg PO BID [facility] Last Admin: 03/26/18 10:16 Dose: 25 mg Calcitriol (Rocaltrol) 0.5 mcg PO DAILY [facility] Last Admin: 03/26/18 11:07 Dose: 0.5 mcg Calcium Carbonate (Oscal) 500 mg PO BID [facility] Last Admin: 03/26/18 10:15 Dose: 500 mg Dextrose (D50w Vial) 50 ml IV.PUSH UNSCH PRN PRN Reason: PER HYPOGLYCEMIA PROTOCOL Finasteride (Proscar) 5 mg PO DAILY [facility] Last Admin: 03/26/18 10:15 Dose: 5 mg Glucagon (Glucagon Inj) 1 mg OTHER PRN PRN PRN Reason: for Hypoglycemia Protocol Heparin Sodium (Porcine) (Heparin Inj) 5,000 units SQ Q12HR [facility] Last Admin: 03/26/18 10:16 Dose: Not Given Piperacillin/Tazobactam/Dextrose (Zosyn 2.25 Gm Premix) 50 mls @ 100 mls/hr IV.SIG Q6H [facility] Last Infusion: 03/26/18 15:44 Dose: Infused Insulin Aspart (Novolog Insulin Correctional Sugar Inj) 0 unit SQ ACHS [facility]; Protocol Last Admin: 03/26/18 13:13 Dose: 7 unit Isosorbide Mononitrate (Imdur) 30 mg PO DAILY [facility] Last Admin: 03/26/18 10:28 Dose: 30 mg Levetiracetam (Keppra) 500 mg PO BID [facility] Last Admin: 03/26/18 10:14 Dose: 500 mg Lorazepam (Ativan) 0.5 mg PO DAILY PRN PRN Reason: ANXIETY Magnesium Oxide (Mag-Ox) 400 mg PO DAILY [facility] Last Admin: 03/26/18 10:14 Dose: 400 mg Melatonin (Melatonin) 10 mg PO HS PRN PRN Reason: Sleep Metoprolol Succinate (Toprol Xl) 12.5 mg PO BID [facility] Last Admin: 03/26/18 10:14 Dose: 12.5 mg Miscellaneous (Pill Splitter) 1 each OTHER UNSCH PRN PRN Reason: PILL SPLITTER Montelukast Sodium (Singulair) 10 mg PO DAILY@1800 [facility] Ondansetron HCl (Zofran Inj) 4 mg IV.PUSH Q6H PRN PRN Reason: NAUSEA OR VOMITING Potassium Chloride (K-Dur) 40 meq PO DAILY [facility] Last Admin: 03/26/18 10:22 Dose: 40 meq Sodium Chloride (Ns Flush) 2 ml IV.FLUSH PRN PRN PRN Reason: FLUSH AFTER USING IV ACCESS Spironolactone (Aldactone) 25 mg PO DAILY [facility] Torsemide (Demadex) 40 mg PO DAILY [facility] Allergies Allergy/AdvReac Type Severity Reaction Status Date / Time aspirin Allergy Severe Bleeding Verified 03/19/18 16:59 diclofenac Allergy Severe bleeding Verified 03/19/18 16:59 etodolac Allergy Severe bleeding Verified 03/19/18 16:59 flurbiprofen Allergy Severe bleeding Verified 03/19/18 16:59 haloperidol Allergy Severe Confusion Verified 03/19/18 16:59 ibuprofen Allergy Severe bleeding Verified 03/19/18 16:59 indomethacin Allergy Severe bleeding Verified 03/19/18 16:59 ketoprofen Allergy Severe bleeding Verified 03/19/18 16:59 ketorolac Allergy Severe bleeding Verified 03/19/18 16:59 naproxen Allergy Severe bleeding Verified 03/19/18 16:59 oxaprozin Allergy Severe bleeding Verified 03/19/18 16:59 oxcarbazepine Allergy Severe Bleeding Verified 03/19/18 16:59 Home Medications Medication Instructions Recorded Confirmed Type magnesium oxide-Mg AA chelate 400 mg PO DAILY 01/07/18 03/25/18 History [Magnesium (oxide/AA chelate)] bethanechol chloride 25 mg PO BID 03/19/18 03/25/18 History calcitriol 0.5 mcg PO DAILY 03/19/18 03/25/18 History calcium carbonate [Calcium 500] 500 mg PO BID 03/19/18 03/25/18 History finasteride 5 mg PO DAILY 03/19/18 03/25/18 History hydrocodone-acetaminophen [[place]] 1 tab PO Q6H PRN 03/19/18 03/25/18 History insulin NPH and regular human 1 sliding scale dose SUBCUT UD 03/19/18 03/25/18 History [Novolin 70/30 U-100 Insulin] isosorbide mononitrate 30 mg PO DAILY 03/19/18 03/25/18 History levetiracetam 500 mg PO BID 03/19/18 03/25/18 History lorazepam [Ativan] 0.5 mg PO DAILY PRN 03/19/18 03/25/18 History melatonin 10 mg PO HS PRN 03/19/18 03/25/18 History metoprolol succinate [Toprol XL] 12.5 mg PO BID 03/19/18 03/25/18 History montelukast 10 mg PO QPM 03/19/18 03/25/18 History ondansetron HCl [Zofran] 8 mg PO TID PRN 03/19/18 03/25/18 History potassium chloride 40 meq PO DAILY 03/19/18 03/25/18 History spironolactone 25 mg PO DAILY 03/19/18 03/25/18 History Exam Vital signs: Vital Signs 03/25/18 16:18 03/25/18 16:23 03/25/18 17:23 Temperature 98.6 F Pulse Rate 100 H 96 H Respiratory Rate 20 18 Blood Pressure 119/59 L Pulse Oximetry 98 99 98 03/25/18 21:02 03/25/18 23:33 03/26/18 04:00 Temperature 98.2 F 98.2 F Pulse Rate 85 76 89 Respiratory Rate 16 17 16 Blood Pressure 109/50 L 103/51 L 102/50 L Pulse Oximetry 98 97 92 L 03/26/18 07:23 03/26/18 08:00 03/26/18 08:25 Temperature 98.0 F Pulse Rate 85 85 80 Respiratory Rate 18 Blood Pressure 107/55 L Pulse Oximetry 96 03/26/18 09:00 03/26/18 11:40 Temperature 98.3 F Pulse Rate 85 88 Respiratory Rate 18 Blood Pressure 88/49 L Pulse Oximetry 95 Intake & Output 03/25/18 03/26/1803/26/18 18:59 06:59 18:59 Intake Total 100 / 100 950 / 950 Balance 100 / 100 950 / 950 Weight 78 kg 78 kg Intake: IV 100 / 100 950 / 950 NS Inj 1,000 ML @ 70 mls/hr IV. 800 / 800 CONT .[id number] [facility] Rx#:[id number] Zosyn 2.25 GM Premix 50 ML @ 50 / 50 100 mls/hr IV.SIG Q6H [facility] Rx#: [id number] Rocephin Inj 1,000 MG In NS Inj 100 / 100 100 / 100 100 ML @ 200 mls/hr IV.SIG Q24H [facility] Rx#:[id number] Other: # Voids 1 Date of Last Bowel Movement 03/25/18 Weight On Admission 78 kg - Constitutional no acute distress, thin, cachectic, chronically ill appearing - Routine HEENT Exam Head: Present: normocephalic - Routine Neck Exam Present: supple - Routine Respiratory Exam Present: decreased breath sounds (diminshed LLL with course breath sounds right lung base), distant breath sounds - Routine Cardiovascular Exam Present: RRR, S1, S2 - Routine Abdominal Exam Present: soft - Routine Extremities Exam Absent: edema - Routine Skin Exam Present: intact - Routine Neurological Exam Present: alert Results - Lab Results 03/26/18 05:45 03/26/18 05:45 Most recent lab results Calcium 8.4 mg/dL (8.5-10.1) L 03/26/18 05:45 Phosphorus 4.0 mg/dL (2.5-4.9) 03/26/18 05:45 Magnesium 1.9 mg/dL (1.5-2.5) 03/26/18 05:45 - Image Kidney/bladder ultrasound: pending Assessment and Plan - Assessment (1) Acute on chronic renal insufficiency Code(s): N28.9 - Disorder of kidney and ureter, unspecified; N18.9 - Chronic kidney disease, unspecified Status: Acute Plan: Baseline SCr 1.4-1.6 Acute decline potentially related to volume depletion 2/2 to poor oral intake with diuretics. He also has a urine infection with leukocytosis which may be contributing to azotemia. Renal US pending. Gentle hydration with close monitoring of volume overload as he has an EF of 20- 25%. Agree with holding diuretics for the present. Encouraged po intake as he is a nutritional risk. Repeat renal panel in the AM. Medications should be adjusted for the patient's renal decline. Avoid nephrotoxic medications including iodinated contrast dyes and NSAIDs. Avoid gadolinium. (2) Urinary tract infection Code(s): N39.0 - Urinary tract infection, site not specified Status: Acute Plan: ID on case. Finalization of UCx pending. (3) Hx of kidney transplant Code(s): Z94.0 - Kidney transplant status Status: Chronic Plan: Not on immunosuppressives. Renal transplant US pending. (4) Cardiomyopathy Code(s): I42.9 - Cardiomyopathy, unspecified Status: Chronic Plan: EF 20-25% September 2017 Gentle hydration for now with resumption of diuretics in the future. (5) SHAUNA (renal osteodystrophy) Code(s): N25.0 - Renal osteodystrophy Status: Acute Plan: Continue on daily Calcitriol. (6) Right frontal lobe mass Code(s): G93.9 - Disorder of brain, unspecified Status: Acute Plan: Suggestion of a mass in the right frontal extra-axial space measuring 2.9 x 1.3 cm. There is also dural thickening more inferiorly. Contrasted MRI recommended for further characterization. Will defer w/u to primary team if indicated. (7) Recurrent left pleural effusion Code(s): J90 - Pleural effusion, not elsewhere classified Status: Acute Plan: Mgmt as per pulmonology. (4) Cardiomyopathy Qualifiers: Cardiomyopathy type: other Qualified Code(s): I42.8 - Other cardiomyopathies
[2018-03-26] MEDS: Sod Chloride 0.9% Inj 1,000 ML IV.CONT SCH (17:29)
[2018-03-26] MEDS: Montelukast 10 MG Tablet PO SCH (18:35)
--- NOTE | 2018-03-26 20:03 | US ---
EXAM DATE: 03/26/2018 12:00 AM EDT AGE/SEX: 77 years / Male INDICATIONS: Increased BUN/Creat nine. CLINICAL DATA: This is the patient's subsequent encounter. Patient reports that signs and symptoms h ave been present for 1 day and indicates a pain score of 0/10. MEDICAL/SURGICAL HISTORY: . Congestive heart failure. Coronary artery disease. Cerebral vascula r accident. Diabetes. Hemangioma. Renal osteodystrophy. . CABG. Parathyroidectomy. Cardiac catheter. Kidney transplant. COMPARISON: [facility], RENAL TRANSPLANT W DOP, 01/08/2018. . MEASUREMENTS: Transplant Kidney:__10.5 x 5.2 x 4.6 cm Location:__Right lower quadrant [place] Arteries Resistive Index: Upper - 0.8 Mid - 0.8 Lower - 0.8 Main Renal Artery Velocity:__111.4 cm/sec Main Renal Vein:__Patent External Iliac Artery Velocity:__72.8 cm/sec External Iliac Vein:__Patent FINDINGS: Transplant Kidney: Mild right-sided hydronephrosis similar to January 08 No peritransplant fluid. Urinary Bladder: Within normal limits given the degree of distension. Other: None. CONCLUSION: 1. Stable mild hydroureteronephrosis. 2. Stable borderline to mildly elevated resistive indices. Electronically signed by: Kirby Kyle MD 03/26/2018 8:01 PM EDT
[2018-03-27] MEDS: Piperacil/Tazo 2.25 GM Premix 50 ML IV.SIG SCH ×3 (01:42→13:59)
[2018-03-27 05:09] LABS: Albumin 2.4 g/dL (3.4-5.0); Calcium 8.4 mg/dL (8.5-10.1); Carbon Dioxide 33.7 meq/L (21.0-32.0); Phosphorus 2.9 mg/dL (2.5-4.9)
[2018-03-27 05:17] LABS: Potassium 5.9 meq/L (3.5-5.1)
[2018-03-27 07:10] LABS: Baso % (Auto) 0.4 % (0.0-2.0); Eos # (Auto) 0.1 th/mm3 (0.0-0.4); Hematocrit 41.7 % (39.0-51.0); Hemoglobin 13.8 gm/dL (13.0-17.0); Lymph # (Auto) 0.5 th/mm3 (1.0-4.8); Lymph % (Auto) 4.1 % (9.0-44.0); Mean Corpuscular HGB Conc 33.1 % (32.0-36.0); Mean Corpuscular Hemoglobin 28.7 pg (27.0-34.0); Mean Corpuscular Volume 86.7 fL (80.0-100.0); Mean Platelet Volume 9.4 fL (7.0-11.0); Mono # (Auto) 1.3 th/mm3 (0.0-0.9); Mono % (Auto) 10.5 % (0.0-8.0); Neut # (Auto) 10.6 th/mm3 (1.8-7.7); Platelet Count 81 th/mm3 (150-450); Red Blood Count 4.81 mil/mm3 (4.50-5.90); Red Cell Distribution Width 17.3 % (11.6-17.2); White Blood Count 12.7 th/mm3 (4.0-11.0)
--- NOTE | 2018-03-27 07:52 | P.PN ---
Subjective Interval history: Patient is in the chair he appears improved today. He does not have any chest pain no shortness of breath and there is no lower extremity edema. However not able to urinate, kidney function is not getting better. No fever or chills> nO n/v/d/c. Not eatign much Family at bedside with multiple questions all answered to the best of my ability. Physical Exam Vital signs: Vital Signs 03/26/18 08:00 03/26/18 08:25 03/26/18 09:00 Temperature Pulse Rate 85 80 85 Respiratory Rate Blood Pressure Pulse Oximetry 03/26/18 11:40 03/26/18 16:36 03/26/18 20:00 Temperature 98.3 F 95.1 F L 98.6 F Pulse Rate 88 80 77 Respiratory Rate 18 18 16 Blood Pressure 88/49 L 96/55 L 115/59 L Pulse Oximetry 95 96 94 L 03/26/18 23:35 03/27/18 00:00 03/27/18 04:00 Temperature 98.2 F 97.8 F Pulse Rate 90 87 93 H Respiratory Rate 18 17 Blood Pressure 97/57 L 99/53 L Pulse Oximetry 97 94 L Intake & Output 03/26/18 03/27/18 03/27/18 18:59 06:59 18:59 Intake Total 950 / 950 460 / 460 Balance 950 / 950 460 / 460 Intake: IV 950 / 950 100 / 100 NS Inj 1,000 ML @ 70 mls/hr IV. 800 / 800 CONT .[id number] [facility] Rx#:[id number] Zosyn 2.25 GM Premix 50 ML @ 50 / 50 100 / 100 100 mls/hr IV.SIG Q6H [facility] Rx#: [id number] Rocephin Inj 1,000 MG In NS Inj 100 / 100 100 ML @ 200 mls/hr IV.SIG Q24H [facility] Rx#:[id number] Oral 360 / 360 Other: Post Void Residual 185 # Voids 2 4 Date of Last Bowel Movement 03/26/18 Narrative: GENERAL: This is a pleasant 77 yo male, appears chronically ill, weak, in no apparent distress. SKIN: Warm, dry, intact, no ecchymosis, left chest lesion nondraining. CARDIOVASCULAR: Regular rate, irregular rhythm without murmurs, gallops, or rubs. RESPIRATORY: Clear to auscultation diminished breath sounds at bases, no wheezing or rhonchi noted GASTROINTESTINAL: Abdomen soft, non-tender, nondistended. Normal active bowel sounds, no CVA tenderness MUSCULOSKELETAL: Extremities without clubbing, cyanosis, or edema. NEURO: Alert & Oriented x4 to person, place, time, situation. Moves all ext x4. - Urinary Catheter Management Straight Cath placed during this visit: yes Reason for continuing: Not indwelling catheter Insertion date: 03/25/18 Insertion time: 17:25 Results - Labs CBC & Chem 7: 03/27/18 06:23 03/27/18 10:07 Laboratory Results - last 24 hr 03/25/18 03/26/18 03/26/18 16:45 05:45 05:45 WBC 23.0 H RBC 5.22 Hgb 14.8 Hct 45.2 MCV 86.7 MCH 28.4 MCHC 32.8 RDW 17.5 H Plt Count 105 L MPV 9.4 Prelim Diff (Auto) Neut % (Auto) 89.1 H Lymph % (Auto) 3.1 L [place] % (Auto) 7.5 Eos % (Auto) 0.1 Baso % (Auto) 0.2 Neut # (Auto) 20.5 H Lymph # (Auto) 0.7 L [place] # (Auto) 1.7 H Eos # (Auto) 0.0 Baso # (Auto) 0.1 WBC Differential . Differential Comment Auto diff final Sodium 137 Potassium 4.1 Chloride 97 L Carbon Dioxide 29.9 Anion Gap 10 BUN 43 H Creatinine 2.13 H Estimated GFR 30 L POC Glucose Random Glucose 297 H Calcium 8.4 L Phosphorus Magnesium Albumin Vitamin B12 Vitamin D 25-Hydroxy PTH Intact Urine Color Yellow Urine Clarity Cloudy H Urine pH 5.0 Ur Specific [place] 1.011 Urine Protein 30 H Urine Glucose (UA) Negative Urine Ketones Negative Urine Occult Blood Moderate H Urine Nitrate Negative Urine Bilirubin Negative Urine Urobilinogen 4 or greater Ur Leukocyte Esterase Large H Urine RBC 4 H Urine WBC 127 H Urine WBC Clumps Many H Amorphous Sediment Rare H Urine Bacteria Few H Hyaline Casts 7 Urine Mucus Few H Micro UA Comment Cath-culture ind Urine Culture Comments Cath-cult indicated 03/26/18 03/26/18 03/26/18 05:45 07:57 11:43 WBC RBC Hgb Hct MCV MCH MCHC RDW Plt Count MPV Prelim Diff (Auto) Neut % (Auto) Lymph % (Auto) [place] % (Auto) Eos % (Auto) Baso % (Auto) Neut # (Auto) Lymph # (Auto) [place] # (Auto) Eos # (Auto) Baso # (Auto) WBC Differential Differential Comment Sodium Potassium Chloride Carbon Dioxide Anion Gap BUN Creatinine Estimated GFR POC Glucose 291 H 271 H Random Glucose Calcium Phosphorus 4.0 Magnesium 1.9 Albumin Vitamin B12 349 Vitamin D 25-Hydroxy PTH Intact Urine Color Urine Clarity Urine pH Ur Specific [place] Urine Protein Urine Glucose (UA) Urine Ketones Urine Occult Blood Urine Nitrate Urine Bilirubin Urine Urobilinogen Ur Leukocyte Esterase Urine RBC Urine WBC Urine WBC Clumps Amorphous Sediment Urine Bacteria Hyaline Casts Urine Mucus Micro UA Comment Urine Culture Comments 03/26/18 03/26/18 03/27/18 18:04 21:47 01:41 WBC RBC Hgb Hct MCV MCH MCHC RDW Plt Count MPV Prelim Diff (Auto) Neut % (Auto) Lymph % (Auto) [place] % (Auto) Eos % (Auto) Baso % (Auto) Neut # (Auto) Lymph # (Auto) [place] # (Auto) Eos # (Auto) Baso # (Auto) WBC Differential Differential Comment Sodium Potassium Chloride Carbon Dioxide Anion Gap BUN Creatinine Estimated GFR POC Glucose 249 H 239 H 158 H Random Glucose Calcium Phosphorus Magnesium Albumin Vitamin B12 Vitamin D 25-Hydroxy PTH Intact Urine Color Urine Clarity Urine pH Ur Specific [place] Urine Protein Urine Glucose (UA) Urine Ketones Urine Occult Blood Urine Nitrate Urine Bilirubin Urine Urobilinogen Ur Leukocyte Esterase Urine RBC Urine WBC Urine WBC Clumps Amorphous Sediment Urine Bacteria Hyaline Casts Urine Mucus Micro UA Comment Urine Culture Comments 03/27/18 03/27/18 03/27/18 03:32 03:32 06:23 WBC 12.7 H RBC 4.81 Hgb 13.8 Hct 41.7 MCV 86.7 MCH 28.7 MCHC 33.1 RDW 17.3 H Plt Count 81 L MPV 9.4 Prelim Diff (Auto) Slide review pending Neut % (Auto) 84.0 H Lymph % (Auto) 4.1 L [place] % (Auto) 10.5 H Eos % (Auto) 1.0 Baso % (Auto) 0.4 Neut # (Auto) 10.6 H Lymph # (Auto) 0.5 L [place] # (Auto) 1.3 H Eos # (Auto) 0.1 Baso # (Auto) 0.0 WBC Differential Differential Comment . Sodium 140 Potassium 5.9 H D Chloride 100 Carbon Dioxide 33.7 H Anion Gap 6 BUN 53 H Creatinine 2.27 H Estimated GFR 28 L POC Glucose Random Glucose 158 H D Calcium 8.4 L Phosphorus 2.9 D Magnesium Albumin 2.4 L Vitamin B12 Vitamin D 25-Hydroxy 27.6 L PTH Intact 9.1 L Urine Color Urine Clarity Urine pH Ur Specific [place] Urine Protein Urine Glucose (UA) Urine Ketones Urine Occult Blood Urine Nitrate Urine Bilirubin Urine Urobilinogen Ur Leukocyte Esterase Urine RBC Urine WBC Urine WBC Clumps Amorphous Sediment Urine Bacteria Hyaline Casts Urine Mucus Micro UA Comment Urine Culture Comments Microbiology 03/25/18 16:45 Catheterized Urine Urine Culture - Preliminary gram negative rods - Imaging Impressions Renal Ultrasound 03/26/18 00:00 CONCLUSION: 1. Stable mild hydroureteronephrosis. 2. Stable borderline to mildly elevated resistive indices. Assessment and Plan - Plan 77-year-old female 77-year-old male with a history of diabetes, CVA, CHF, CAD, CKD, BPH, seizures, anxiety, A. fib and frequent UTIs was brought to the ED by his for weakness and dysuria. On admission with Sepsis, WBCs 17.0, HR 100, source pyelonephritis likely E. Coli H/o BPH, urinary retention Urine shows large leukocyte esterase, positive protein, rare bacteria, positive blood -Rocephin IV, however patient with worsening leukocytosis, ID specialist consulted patient also with persistent and recurrent infections . DC Rocephin and start Zosyn IV abx WBCs trending down now -follow up Urine cultures and blood cultures -Monitor labs - Do bladder scan. Place [place] if PVR >400cc. Monitor urine OP. Acute kidney injury on chronic kidney disease Creatinine 2.0, baseline 1.5 -Gentle IVF due to CHF history -Trend creatinine -Avoid nephrotoxins -Consult nephrology as kidney function is worsen, patient known to Dr. Pro Weakness, suspect related to kidney infection -PT eval and Treat -Most likely will continue physical therapy at discharge Systolic CHF, chronic. Doesn't appear in exacerbation at this time Last echo September 2017 shows EF 20-25% -Monitor for fluid overload -Continue home diuretics - lasix held at this time Follows with Dr Gray as OP A. fib, chronic EKG reviewed and shows A. fib -Resume home medications -Monitor telemetry Diabetes, chronic -Accu-Cheks with sliding scale insulin -Diabetic diet -Hold home 70/30 for now Seizures, chronic Continue Home medications Left chest lesion follows with dermatology as OP. DVT prophylaxis: Heparin SQ Discussed Condition With: Patient, nurse, family at bedside very supportive. Patient and family says they will go home with home health after DC and not to any rehab.
[2018-03-27] MEDS: Insulin NovoLOG Aspart Correctional Sugar Inj SQ SCH ×4 (08:45→22:03)
[2018-03-27] MEDS: Heparin - SQ 10,000 UNITS/ML Vial SQ SCH ×2 (10:02→20:47)
[2018-03-27] MEDS: Magnesium Oxide 400 MG Tablet PO SCH (10:04)
[2018-03-27] MEDS: Calcitriol 0.25 MCG Capsule PO SCH (10:04)
[2018-03-27] MEDS: Finasteride 5 MG Tablet PO SCH (10:04)
[2018-03-27] MEDS: levETIRAcetam 500 MG Tablet PO SCH ×3 (10:04→21:01)
[2018-03-27] MEDS: Calcium Carbonate 500 MG Tablet PO SCH ×3 (10:05→21:02)
[2018-03-27] MEDS: Isosorbide Mononitrate 30 MG ER 24HR Tablet (Imdur) PO SCH (10:05)
[2018-03-27] MEDS: Sod Chloride 0.9% Inj 1,000 ML IV.CONT SCH (10:07)
--- NOTE | 2018-03-27 10:34 | P.PNURO ---
Subjective Patient symptoms today: Pt seen and examined. Feels well. Bladder scans 89cc and around 200cc. Objective Vital Signs: Vital Signs 03/26/18 11:40 03/26/18 16:36 03/26/18 20:00 Temperature 98.3 F 95.1 F L 98.6 F Pulse Rate 88 80 77 Respiratory Rate 18 18 16 Blood Pressure 88/49 L 96/55 L 115/59 L Pulse Oximetry 95 96 94 L 03/26/18 23:35 03/27/18 00:00 03/27/18 04:00 Temperature 98.2 F 97.8 F Pulse Rate 90 87 93 H Respiratory Rate 18 17 Blood Pressure 97/57 L 99/53 L Pulse Oximetry 97 94 L 03/27/18 08:00 Temperature 97.8 F Pulse Rate 117 H Respiratory Rate 18 Blood Pressure 110/64 Pulse Oximetry 95 Intake & Output 03/26/18 03/27/18 03/27/18 18:59 06:59 18:59 Intake Total 950 / 950 460 / 460 938 / 938 Balance 950 / 950 460 / 460 938 / 938 Intake: IV 950 / 950 100 / 100 938 / 938 NS Inj 1,000 ML @ 60 mls/hr IV. 800 / 800 888 / 888 CONT .[id number] KIAN Rx#:[id number] Zosyn 2.25 GM Premix 50 ML @ 50 / 50 100 / 100 50 / 50 100 mls/hr IV.SIG Q6H KIAN Rx#: [id number] Rocephin Inj 1,000 MG In NS Inj 100 / 100 100 ML @ 200 mls/hr IV.SIG Q24H KIAN Rx#:[id number] Oral 360 / 360 Other: Post Void Residual 185 # Voids 2 4 Date of Last Bowel Movement 03/26/18 Result Diagrams: 03/27/18 06:23 03/27/18 03:32 Imaging: Impressions Renal Ultrasound 03/26/18 00:00 CONCLUSION: 1. Stable mild hydroureteronephrosis. 2. Stable borderline to mildly elevated resistive indices. Medications and IVs: Active Medications Generic Name Dose Route Start Last Admin Trade Name Freq PRN Reason Stop Dose Admin Acetaminophen 650 mg 03/25/18 21:23 Tylenol PO Q4H PRN Temp > 100.4 Bethanechol Chloride 25 mg 03/25/18 21:30 03/27/18 10:05 Urecholine PO 25 mg BID KIAN Administration Calcitriol 0.5 mcg 03/26/18 09:00 03/27/18 10:04 Rocaltrol PO 0.5 mcg DAILY KIAN Administration Calcium Carbonate 500 mg 03/25/18 21:30 03/27/18 10:05 Oscal PO 500 mg BID KIAN Administration Dextrose 50 ml 03/25/18 21:29 D50w Vial IV.PUSH UNSCH PRN PER HYPOGLYCEMIA PROTOCOL Finasteride 5 mg 03/26/18 09:00 03/27/18 10:04 Proscar PO 5 mg DAILY KIAN Administration Glucagon 1 mg 03/25/18 21:29 Glucagon Inj OTHER PRN PRN for Hypoglycemia Protocol Heparin Sodium (Porcine) 5,000 units 03/26/18 09:00 03/27/18 10:02 Heparin Inj SQ Not Given Q12HR KIAN Piperacillin/Tazobactam/Dextrose 50 mls @ 100 mls/hr 03/26/18 14:00 03/27/18 10:02 Zosyn 2.25 Gm Premix IV.SIG Infused Q6H KIAN Infusion Sodium Chloride 1,000 mls @ 60 mls/hr 03/26/18 16:41 03/27/18 10:07 Ns Inj IV.CONT 60 mls/hr .[id number] KIAN Administration Insulin Aspart 0 unit 03/26/18 08:00 03/27/18 08:45 Novolog Insulin Correctional Sugar Inj SQ Not Given ACHS [facility] Protocol Isosorbide Mononitrate 30 mg 03/26/18 09:00 03/27/18 10:05 Imdur PO 30 mg DAILY KIAN Administration Levetiracetam 500 mg 03/25/18 21:30 03/27/18 10:04 Keppra PO 500 mg BID KIAN Administration Lorazepam 0.5 mg 03/25/18 21:27 Ativan PO DAILY PRN ANXIETY Magnesium Oxide 400 mg 03/26/18 09:00 03/27/18 10:04 Mag-Ox PO 400 mg DAILY KIAN Administration Melatonin 10 mg 03/25/18 21:27 Melatonin PO HS PRN Sleep Metoprolol Succinate 12.5 mg 03/25/18 21:30 03/27/18 10:05 Toprol Xl PO 12.5 mg BID KIAN Administration Miscellaneous 1 each 03/25/18 21:44 Pill Splitter OTHER UNSCH PRN PILL SPLITTER Montelukast Sodium 10 mg 03/26/18 18:00 03/26/18 18:35 Singulair PO 10 mg DAILY@1800 KIAN Administration Ondansetron HCl 4 mg 03/25/18 21:23 Zofran Inj IV.PUSH Q6H PRN NAUSEA OR VOMITING Patiromer 8.4 gm 03/27/18 09:21 Veltassa Pkt PO 03/27/18 09:22 ONCE STA Sodium Chloride 2 ml 03/25/18 16:32 Ns Flush IV.FLUSH PRN PRN FLUSH AFTER USING IV ACCESS Spironolactone 25 mg 03/26/18 09:00 Aldactone PO DAILY KIAN Torsemide 40 mg 03/26/18 09:00 Demadex PO DAILY KIAN Objective Remarks: Abd:soft,nt,nd Assessment and Plan - Plan 77y.o M with history as per HPI - Continue care as per primary team and ID - Follow up on final UC and treat as per C&S - No acute intervention needed - Agree with Renal US - He also needs a bladder scan to make sure he is able to empty bladder well If in retention needs mcintyre placement - Continue Proscar and add Flomax daily For additional recommendations contact Dr Lee 03/27 Please see consult dictated yesterday by me. 77 y.o male with h/o KTX and BPH with obstruction Mcintyre if PVR >400cc Continue Abx. Cultures sensitive to Rocephin
--- NOTE | 2018-03-27 14:46 | P.PNID ---
Subjective Remarks: Patient is a 77-year-old male, brought into the hospital for evaluation of weakness, and dysuria that started on the day of admission. He apparently felt very weak and has not been doing his usual activity. Patient normally walks with a walker. He has been very weak on the day of admission that he was not able to ambulate. Patient has known kidney transplant more than 20 years ago, and he has some mild renal insufficiency. He has had urological evaluation about a year ago by Dr. Lee and at that time they did not find any abnormality. He had no evidence of incomplete emptying of his bladder. His cystoscopy was also okay. He has been known to have some prostate enlargement but it is no surgical intervention needs to be done during evaluation. Patient has not had any fever chills or sweats. He denies any nausea or vomiting or any back pain. On presentation he is afebrile. His white count is elevated. His creatinine is 2. His urinalysis is showing pyuria. Patient apparently has had some urinary tract infection in the past, but the last time was when he was admitted back in January and reportedly he had a Mackenzie catheter that was why he developed a UTI. He has not had any problem after that hospitalization. Infectious disease consultation has been requested to assist with evaluation and treatment. Notes reviewed Temps ok Mental status much improved Bladder scan volume yesterday and this morning have been high Bladder scan at 12 noon 11-30 ml UC with Enterobacter WBC better CReatinine slightly higher US with stable mild hydronephrosis Antibiotics: Zosyn Lines: PIV Past Medical History: CAD (coronary artery disease) CHF (congestive heart failure) CVA (cerebral vascular accident) Diabetes Hemangioma SHAUNA (renal osteodystrophy) H/O parathyroidectomy History of YAG laser capsulotomy of lens History of cardiac cath Kidney transplanted S/P CABG x 5 Status post laser cataract surgery of both eyes Allergies/Adverse Reactions: Allergies aspirin Allergy (Severe, Verified 03/19/18 16:59) Bleeding diclofenac Allergy (Severe, Verified 03/19/18 16:59) bleeding Had a kidney transplant etodolac Allergy (Severe, Verified 03/19/18 16:59) bleeding Had a kidney transplant flurbiprofen Allergy (Severe, Verified 03/19/18 16:59) bleeding Had a kidney transplant haloperidol Allergy (Severe, Verified 03/19/18 16:59) Confusion ibuprofen Allergy (Severe, Verified 03/19/18 16:59) bleeding Had a kidney transplant indomethacin Allergy (Severe, Verified 03/19/18 16:59) bleeding Had a kidney transplant ketoprofen Allergy (Severe, Verified 03/19/18 16:59) bleeding Had a kidney transplant ketorolac Allergy (Severe, Verified 03/19/18 16:59) bleeding Had a kidney transplant naproxen Allergy (Severe, Verified 03/19/18 16:59) bleeding Had a kidney transplant oxaprozin Allergy (Severe, Verified 03/19/18 16:59) bleeding Had a kidney transplant oxcarbazepine Allergy (Severe, Verified 03/19/18 16:59) Bleeding Objective Vital Signs 03/26/18 16:36 03/26/18 20:00 03/26/18 23:35 Temperature 95.1 F L 98.6 F 98.2 F Pulse Rate 80 77 90 Respiratory Rate 18 16 18 Blood Pressure 96/55 L 115/59 L 97/57 L Pulse Oximetry 96 94 L 97 03/27/18 00:00 03/27/18 04:00 03/27/18 08:00 Temperature 97.8 F 97.8 F Pulse Rate 87 93 H 117 H Respiratory Rate 17 18 Blood Pressure 99/53 L 110/64 Pulse Oximetry 94 L 95 03/27/18 09:00 03/27/18 11:49 Temperature 98.9 F Pulse Rate 99 H 88 Respiratory Rate 18 Blood Pressure 105/56 L Pulse Oximetry 95 Intake & Output 03/26/18 03/27/18 03/27/18 18:59 06:59 18:59 Intake Total 950 / 950 460 / 460 988 / 988 Output Total 100 / 100 Balance 950 / 950 460 / 460 888 / 888 Intake: IV 950 / 950 100 / 100 988 / 988 NS Inj 1,000 ML @ 60 mls/hr IV. 800 / 800 888 / 888 CONT .[id number] KIAN Rx#:[id number] Zosyn 2.25 GM Premix 50 ML @ 50 / 50 100 / 100 100 / 100 100 mls/hr IV.SIG Q6H KIAN Rx#: [id number] Rocephin Inj 1,000 MG In NS Inj 100 / 100 100 ML @ 200 mls/hr IV.SIG Q24H KIAN Rx#:[id number] Oral 360 / 360 Output: Urine 100 / 100 Other: Post Void Residual 185 # Voids 2 4 1 Date of Last Bowel Movement 03/26/18 03/25/18 16:45 Catheterized Urine Urine Culture - Final Enterobacter gergoviae Lab - Hematology Results 03/25/18 03/26/18 03/27/18 16:40 05:45 06:23 WBC 17.0 H 23.0 H 12.7 H RBC 5.06 5.22 4.81 Hgb 14.7 14.8 13.8 Hct 44.2 45.2 41.7 MCV 87.5 86.7 86.7 MCH 29.1 28.4 28.7 MCHC 33.3 32.8 33.1 RDW 17.1 17.5 H 17.3 H Plt Count 135 L 105 L 81 L MPV 9.0 9.4 9.4 Prelim Diff (Auto) Slide review pending Neut % (Auto) 86.0 H 89.1 H 84.0 H Lymph % (Auto) 4.4 L 3.1 L 4.1 L [place] % (Auto) 8.2 H 7.5 10.5 H Eos % (Auto) 0.8 0.1 1.0 Baso % (Auto) 0.6 0.2 0.4 Neut # (Auto) 14.6 H 20.5 H 10.6 H Lymph # (Auto) 0.7 L 0.7 L 0.5 L [place] # (Auto) 1.4 H 1.7 H 1.3 H Eos # (Auto) 0.1 0.0 0.1 Baso # (Auto) 0.1 0.1 0.0 WBC Differential . . . Diff Scan Auto diff confirmed Differential Comment Auto diff final Auto diff final . Lab - Chemistry Results 03/25/18 03/25/18 03/26/18 16:40 21:00 01:23 Sodium 136 Potassium 4.3 Chloride 96 L Carbon Dioxide 30.7 Anion Gap 9 BUN 38 H Creatinine 2.08 H Estimated GFR 31 L POC Glucose 299 H Random Glucose 271 H Lactic Acid 1.6 Calcium 8.1 L Phosphorus Magnesium 2.0 Total Bilirubin 1.9 H AST 23 ALT 15 Alkaline Phosphatase 127 H Troponin I 0.04 Total Protein 7.2 Albumin 2.8 L Vitamin B12 Vitamin D 25-Hydroxy PTH Intact 10/03/26/18 03/26/18 05:45 05:45 07:57 Sodium 137 Potassium 4.1 Chloride 97 L Carbon Dioxide 29.9 Anion Gap 10 BUN 43 H Creatinine 2.13 H Estimated GFR 30 L POC Glucose 291 H Random Glucose 297 H Lactic Acid Calcium 8.4 L Phosphorus 4.0 Magnesium 1.9 Total Bilirubin AST ALT Alkaline Phosphatase Troponin I Total Protein Albumin Vitamin B12 349 Vitamin D 25-Hydroxy PTH Intact 03/26/18 03/26/18 03/26/18 11:43 18:04 21:47 Sodium Potassium Chloride Carbon Dioxide Anion Gap BUN Creatinine Estimated GFR POC Glucose 271 H 249 H 239 H Random Glucose Lactic Acid Calcium Phosphorus Magnesium Total Bilirubin AST ALT Alkaline Phosphatase Troponin I Total Protein Albumin Vitamin B12 Vitamin D 25-Hydroxy PTH Intact 03/27/18 03/27/18 03/27/18 01:41 03:32 03:32 Sodium 140 Potassium 5.9 H D Chloride 100 Carbon Dioxide 33.7 H Anion Gap 6 BUN 53 H Creatinine 2.27 H Estimated GFR 28 L POC Glucose 158 H Random Glucose 158 H D Lactic Acid Calcium 8.4 L Phosphorus 2.9 D Magnesium Total Bilirubin AST ALT Alkaline Phosphatase Troponin I Total Protein Albumin 2.4 L Vitamin B12 Vitamin D 25-Hydroxy 27.6 L PTH Intact 9.1 L 03/27/18 03/27/18 03/27/18 07:38 10:07 13:57 Sodium Potassium 4.3 D Chloride Carbon Dioxide Anion Gap BUN Creatinine Estimated GFR POC Glucose 164 H 284 H Random Glucose Lactic Acid Calcium Phosphorus Magnesium Total Bilirubin AST ALT Alkaline Phosphatase Troponin I Total Protein Albumin Vitamin B12 Vitamin D 25-Hydroxy PTH Intact Imaging: ITS Impressions Head CT 03/25/18 16:32 CONCLUSION: 1. No acute intracranial abnormality. 2. Suggestion of a mass in the right frontal extra-axial space measuring 2.9 x 1.3 cm. There is also dural thickening more inferiorly. Contrasted MRI recommended for further characterization. 3. Right-sided craniotomy and encephalomalacia in the right frontal right temporal lobes. Chest X-Ray 03/25/18 17:32 CONCLUSION: 1. Stable loculated pneumothorax laterally in the left lower lobe. 2. Developing pleural effusion in the region of the left-sided loculated pneumothorax. 3. Right lung remains clear. Renal Ultrasound 03/26/18 00:00 CONCLUSION: 1. Stable mild hydroureteronephrosis. 2. Stable borderline to mildly elevated resistive indices. Physical Exam: GENERAL: Patient is a thin, well-developed male, awake and alert, not in respiratory distress. Up in chair SKIN: Cool and dry. No generalized rash, no ecchymoses and no evidence of embolic lesions. He has a mass on his L upper chest with some dried blood. HEAD: Atraumatic. Normocephalic. No temporal wasting, or tenderness. EYES: [place] conjunctiva. No petechia or hemorrhage. Pupils equal, round and reactive to light. Extraocular movements full and intact. No scleral icterus. No injection or drainage. EARS, NOSE AND THROAT: Nose without bleeding or purulent nasal discharge. No sinus tenderness. Mucous membranes slightly dry, he is edentulous. NECK: Trachea midline. Supple and not tender, no meningeal signs CARDIOVASCULAR: Regular rate and rhythm. No murmurs, rubs or gallops heard RESPIRATORY: Clear to auscultation. Breath sounds equal bilaterally. No rales , wheezing or rhonchi ABDOMEN: Soft, nondistended, not tender. Bowel sounds present and normoactive. No guarding. No rebound. No organomegaly. EXTREMITIES: No clubbing, cyanosis, or edema.No joint effusion, has good ROM. No calf tenderness. Well perfused and warm. NEUROLOGICAL: Awake and alert. Cranial nerves grossly intact. Motor grossly within normal limits. PSYCHIATRIC: Normal affect, calm and cooperative. LINE: No evidence of infection Assessment and Plan - Plan Impression UTI, patient S/P renal transplant, known BPH Renal insufficiency, post transplant >20 years ago Hx CHF Sigifredo effusions Mass L upper chest Recommendation Check bladder scan Change to Rocephin Follow creatinine and CBC Monitor progress Will be able to use oral Abx when he is ready for D/C Urology following Spoke with
[2018-03-27] MEDS: Montelukast 10 MG Tablet PO SCH (17:03)
--- NOTE | 2018-03-27 18:22 | P.PNNP ---
Subjective Interval history: The patient is a 77yo [place] male who is known to our services for CKD. He was brought into this facility by his on 03/25 for worsening weakness, fatigue , and dysuria which occurred suddenly that day. He has hx of recurrent UTIs and urinary retention for which he follows with Dr. John. He was last seen by our services during his last admission in January where he was being treated for cardiorenal syndrome. He was discharged to [facility] on with a SCr of 1.48 and eGFR 48. SCr on 03/20/18 was 1.59 eGFR 42 (admitted here for observation for PTX post thoracentesis). Admitting SCr on 03/25 at 2.08 with eGFR 31 that worsened slightly to 2.13 and eGFR 30 at consultation. 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 Has been on Torsemide 40mg QD and Spironolactone 25mg QD since his discharge in January as per cardiology (not had outpatient appointment with our office since discharge). Overall doing well on this, but the reports that his appetite has been poor and has not been keeping up with his fluids as he should. Denies any NSAIDs at home. He is a renal transplant recipient, but not on immunosuppressives 2/2 to graft tolerance. 03/27/18 Pt more alert. and daughter at bedside who also endorse clinical improvement Physical Exam Vital signs: Vital Signs 03/26/18 20:00 03/26/18 23:35 03/27/18 00:00 Temperature 98.6 F 98.2 F Pulse Rate 77 90 87 Respiratory Rate 16 18 Blood Pressure 115/59 L 97/57 L Pulse Oximetry 94 L 97 03/27/18 04:00 03/27/18 08:00 03/27/18 09:00 Temperature 97.8 F 97.8 F Pulse Rate 93 H 117 H 99 H Respiratory Rate 17 18 Blood Pressure 99/53 L 110/64 Pulse Oximetry 94 L 95 03/27/18 11:49 Temperature 98.9 F Pulse Rate 88 Respiratory Rate 18 Blood Pressure 105/56 L Pulse Oximetry 95 Intake & Output 03/26/18 03/27/18 03/27/18 18:59 06:59 18:59 Intake Total 950 / 950 460 / 460 1088 / 1088 Output Total 100 / 100 Balance 950 / 950 460 / 460 988 / 988 Intake: IV 950 / 950 100 / 100 1088 / 1088 NS Inj 1,000 ML @ 60 mls/hr IV. 800 / 800 888 / 888 CONT .[id number] KIAN Rx#:[id number] Zosyn 2.25 GM Premix 50 ML @ 50 / 50 100 / 100 100 / 100 100 mls/hr IV.SIG Q6H KIAN Rx#: [id number] Rocephin Inj 1,000 MG In NS Inj 100 / 100 100 ML @ 200 mls/hr IV.SIG Q24H KIAN Rx#:[id number] Rocephin Inj 2,000 MG In NS Inj 100 / 100 100 ML @ 200 mls/hr IV.SIG Q24H KIAN Rx#:[id number] Oral 360 / 360 Output: Urine 100 / 100 Other: Post Void Residual 185 # Voids 2 4 1 Date of Last Bowel Movement 03/26/18 - Constitutional thin, chronically ill appearing - Routine HEENT Exam Head: Present: normocephalic - Routine Neck Exam Present: supple - Routine Respiratory Exam Present: CTA bilaterally - Routine Cardiovascular Exam Present: irregularly irregular - Routine Abdominal Exam Present: soft - Routine Skin Exam Present: intact - Routine Neurological Exam Present: alert - Urinary Catheter Management Straight Cath placed during this visit: yes Reason for continuing: Not indwelling catheter Insertion date: 03/25/18 Insertion time: 17:25 Assessment and Plan - Assessment (1) Acute on chronic renal insufficiency Code(s): N28.9 - Disorder of kidney and ureter, unspecified; N18.9 - Chronic kidney disease, unspecified Status: Acute Plan: Baseline SCr 1.4-1.6 Acute decline potentially related to volume depletion 2/2 to poor oral intake with diuretics. He also has a urine infection with leukocytosis which may be contributing to azotemia. Renal US reviewed. Continue gentle hydration. IVF has been off since 1400 according to . Resume at 60mL/hr. Hopefully renal functions improve as clinical he appears quite dry. KCl held. s/p Veltassa this AM as he had an elevated K+. Improved post treatment. Gentle hydration with close monitoring of volume overload as he has an EF of 20- 25%. Medications should be adjusted for the patient's renal decline. Avoid nephrotoxic medications including iodinated contrast dyes and NSAIDs. Avoid gadolinium. (2) Urinary tract infection Code(s): N39.0 - Urinary tract infection, site not specified Status: Acute Plan: Abx as per ID. Leukocytosis improved. Urology note reviewed. PVR this evening ~180mL. (3) Hx of kidney transplant Code(s): Z94.0 - Kidney transplant status Status: Chronic Plan: Not on immunosuppressives. Renal transplant US pending. (4) Cardiomyopathy Code(s): I42.9 - Cardiomyopathy, unspecified Status: Chronic Qualifiers: Cardiomyopathy type: other Qualified Code(s): I42.8 - Other cardiomyopathies Plan: EF 20-25% September 2017 Gentle hydration for now with resumption of diuretics in the future. (5) SHAUNA (renal osteodystrophy) Code(s): N25.0 - Renal osteodystrophy Status: Acute Plan: Continue on daily Calcitriol. (6) Right frontal lobe mass Code(s): G93.9 - Disorder of brain, unspecified Status: Acute Plan: Suggestion of a mass in the right frontal extra-axial space measuring 2.9 x 1.3 cm. There is also dural thickening more inferiorly. Contrasted MRI recommended for further characterization. Will defer w/u to primary team if indicated. (7) Recurrent left pleural effusion Code(s): J90 - Pleural effusion, not elsewhere classified Status: Acute Plan: Mgmt as per pulmonology.
--- NOTE | 2018-03-27 22:47 | XR ---
EXAM DATE: 03/27/2018 10:38 PM EDT AGE/SEX: 77 years / Male INDICATIONS: Short of breath CLINICAL DATA: This is the patient's subsequent encounter. Patient reports that signs and symptoms h ave been present for 4 - 6 days and indicates a pain score of 0/10. MEDICAL/SURGICAL HISTORY: . Congestive heart failure. Coronary artery disease. Cerebral vascula r accident. Diabetes. Hemangioma. Renal osteodystrophy. . . CABG. Parathyroidectomy. Cardiac cathet er. Kidney transplant. COMPARISON: [facility] [place]ST 1V SINGLE AP, 03/25/2018. . FINDINGS: A single AP view of the chest demonstrates a small left effusion with left basilar airspace disease. Small left pneumothorax appears slightly decreased compared with prior exam. Previous sternotomy. CONCLUSION: Small left pneumothorax, slightly decreased from March 25. Small left effusion with left basilar ai rspace disease. Prior sternotomy. Electronically signed by: Kirby Kyle MD 03/27/2018 10:46 PM EDT
[2018-03-28] MEDS: Sod Chloride 0.9% Inj 1,000 ML IV.CONT SCH ×2 (05:45→22:44)
[2018-03-28 07:46] LABS: Baso % (Auto) 0.4 % (0.0-2.0); Eos # (Auto) 0.3 th/mm3 (0.0-0.4); Eos % (Auto) 4.1 % (0.0-4.0); Hematocrit 42.1 % (39.0-51.0); Hemoglobin 13.7 gm/dL (13.0-17.0); Lymph # (Auto) 0.4 th/mm3 (1.0-4.8); Lymph % (Auto) 5.7 % (9.0-44.0); Mean Corpuscular HGB Conc 32.5 % (32.0-36.0); Mean Corpuscular Hemoglobin 28.8 pg (27.0-34.0); Mean Corpuscular Volume 88.5 fL (80.0-100.0); Mono # (Auto) 0.9 th/mm3 (0.0-0.9); Neut # (Auto) 5.6 th/mm3 (1.8-7.7); Neut % (Auto) 77.8 % (16.0-70.0); Platelet Count 81 th/mm3 (150-450); Red Blood Count 4.76 mil/mm3 (4.50-5.90); Red Cell Distribution Width 17.2 % (11.6-17.2); White Blood Count 7.3 th/mm3 (4.0-11.0)
[2018-03-28 08:09] LABS: Albumin 2.1 g/dL (3.4-5.0); Calcium 8.7 mg/dL (8.5-10.1); Carbon Dioxide 30.3 meq/L (21.0-32.0)
[2018-03-28] MEDS: Heparin - SQ 10,000 UNITS/ML Vial SQ SCH ×2 (08:35→20:34)
[2018-03-28] MEDS: Insulin NovoLOG Aspart Correctional Sugar Inj SQ SCH ×5 (08:36→20:35)
[2018-03-28] MEDS: Calcitriol 0.25 MCG Capsule PO SCH (08:37)
[2018-03-28] MEDS: levETIRAcetam 500 MG Tablet PO SCH ×2 (08:37→20:34)
[2018-03-28] MEDS: Calcium Carbonate 500 MG Tablet PO SCH ×2 (08:38→20:33)
[2018-03-28] MEDS: Finasteride 5 MG Tablet PO SCH (08:38)
[2018-03-28] MEDS: Magnesium Oxide 400 MG Tablet PO SCH (08:38)
[2018-03-28] MEDS: Isosorbide Mononitrate 30 MG ER 24HR Tablet (Imdur) PO SCH (08:38)
--- NOTE | 2018-03-28 08:44 | P.PNURO ---
Subjective Patient symptoms today: Pt seen and examined. Feels better. Objective Vital Signs: Vital Signs 03/27/18 09:00 03/27/18 11:49 03/27/18 16:00 Temperature 98.9 F 97.9 F Pulse Rate 99 H 88 89 Respiratory Rate 18 16 Blood Pressure 105/56 L 103/58 L Pulse Oximetry 95 95 03/27/18 20:00 03/28/18 00:00 03/28/18 04:00 Temperature 97.4 F L 98 F 97.5 F L Pulse Rate 87 99 H 89 Respiratory Rate 18 18 18 Blood Pressure 107/61 128/82 123/75 Pulse Oximetry 94 L 98 98 Intake & Output 03/27/18 03/28/18 03/28/18 18:59 06:59 18:59 Intake Total 1088 / 1088 1105 / 1105 Output Total 100 / 100 700 / 700 Balance 988 / 988 405 / 405 Intake: IV 1088 / 1088 1105 / 1105 NS Inj 1,000 ML @ 60 mls/hr IV. 888 / 888 1000 / 1000 CONT .[id number] [facility] Rx#:[id number] Zosyn 2.25 GM Premix 50 ML @ 100 / 100 100 mls/hr IV.SIG Q6H [facility] Rx#: [id number] Rocephin Inj 2,000 MG In NS Inj 100 / 100 100 ML @ 200 mls/hr IV.SIG Q24H [facility] Rx#:[id number] Keppra Inj 500 MG In NS Inj 100 105 / 105 ML @ 400 mls/hr IV.SIG ONCE ONE Rx#:[id number] Output: Urine 100 / 100 700 / 700 Other: # Voids 1 # Incontinent Bowel Movements 1 Result Diagrams: 03/28/18 06:24 03/28/18 06:24 Imaging: Impressions Chest X-Ray 03/27/18 22:21 CONCLUSION: Small left pneumothorax, slightly decreased from March 25. Small left effusion with left basilar airspace disease. Prior sternotomy. Medications and IVs: Active Medications Generic Name Dose Route Start Last Admin Trade Name Freq PRN Reason Stop Dose Admin Acetaminophen 650 mg 03/25/18 21:23 Tylenol PO Q4H PRN Temp > 100.4 Bethanechol Chloride 25 mg 03/25/18 21:30 03/28/18 08:38 Urecholine PO 25 mg BID [facility] Administration Calcitriol 0.5 mcg 03/26/18 09:00 03/28/18 08:37 Rocaltrol PO 0.5 mcg DAILY [facility] Administration Calcium Carbonate 500 mg 03/25/18 21:30 03/28/18 08:38 Oscal PO 500 mg BID [facility] Administration Dextrose 50 ml 03/25/18 21:29 D50w Vial IV.PUSH UNSCH PRN PER HYPOGLYCEMIA PROTOCOL Finasteride 5 mg 03/26/18 09:00 03/28/18 08:38 Proscar PO 5 mg DAILY [facility] Administration Glucagon 1 mg 03/25/18 21:29 Glucagon Inj OTHER PRN PRN for Hypoglycemia Protocol Heparin Sodium (Porcine) 5,000 units 03/26/18 09:00 03/28/18 08:35 Heparin Inj SQ Not Given Q12HR [facility] Sodium Chloride 1,000 mls @ 60 mls/hr 03/26/18 16:41 03/28/18 05:45 Ns Inj IV.CONT 60 mls/hr .[id number] [facility] Administration Ceftriaxone Sodium 2,000 mg/ 100 mls @ 200 mls/hr 03/27/18 16:00 03/27/18 16: 42 Sodium Chloride IV.SIG Infused Q24H [facility] Infusion Insulin Aspart 0 unit 03/26/18 08:00 03/28/18 08:36 Novolog Insulin Correctional Sugar Inj SQ Not Given ACHS [facility] Protocol Isosorbide Mononitrate 30 mg 03/26/18 09:00 03/28/18 08:38 Imdur PO 30 mg DAILY [facility] Administration Levetiracetam 500 mg 03/25/18 21:30 03/28/18 08:37 Keppra PO 500 mg BID [facility] Administration Lorazepam 0.5 mg 03/25/18 21:27 Ativan PO DAILY PRN ANXIETY Magnesium Oxide 400 mg 03/26/18 09:00 03/28/18 08:38 Mag-Ox PO 400 mg DAILY [facility] Administration Melatonin 10 mg 03/25/18 21:27 Melatonin PO HS PRN Sleep Metoprolol Succinate 12.5 mg 03/25/18 21:30 03/28/18 08:38 Toprol Xl PO 12.5 mg BID [facility] Administration Miscellaneous 1 each 03/25/18 21:44 Pill Splitter OTHER UNSCH PRN PILL SPLITTER Montelukast Sodium 10 mg 03/26/18 18:00 03/27/18 17:03 Singulair PO 10 mg DAILY@1800 [facility] Administration Ondansetron HCl 4 mg 03/25/18 21:23 Zofran Inj IV.PUSH Q6H PRN NAUSEA OR VOMITING Sodium Chloride 2 ml 03/25/18 16:32 Ns Flush IV.FLUSH PRN PRN FLUSH AFTER USING IV ACCESS Spironolactone 25 mg 03/26/18 09:00 Aldactone PO DAILY [facility] Torsemide 40 mg 03/26/18 09:00 Demadex PO DAILY [facility] Objective Remarks: Abd:soft,nt,nd 03/28 Abd:soft,nt,nd Voiding. PVR's reasonable Assessment and Plan - Plan 77y.o M with history as per HPI - Continue care as per primary team and ID - Follow up on final UC and treat as per C&S - No acute intervention needed - Agree with Renal US - He also needs a bladder scan to make sure he is able to empty bladder well If in retention needs mcintyre placement - Continue Proscar and add Flomax daily For additional recommendations contact Dr Lee 03/27 Please see consult dictated yesterday by me. 77 y.o male with h/o KTX and BPH with obstruction Mcintyre if PVR >400cc Continue Abx. Cultures sensitive to Rocephin 03/28 77 y.o male with h/o KTX and BPH with obstruction Continue abx Clinically improving
--- NOTE | 2018-03-28 10:03 | P.PN ---
Subjective Interval history: Follow-up sepsis/pyelonephritis/BPH with obstruction/history of kidney transplant March 28, 2018-patient seen and examined, afebrile and denies any pelvic pain. by the bedside. Physical Exam Vital signs: Vital Signs 03/27/18 11:49 03/27/18 16:00 03/27/18 20:00 Temperature 98.9 F 97.9 F 97.4 F L Pulse Rate 88 89 87 Respiratory Rate 18 16 18 Blood Pressure 105/56 L 103/58 L 107/61 Pulse Oximetry 95 95 94 L 03/28/18 00:00 03/28/18 04:00 Temperature 98 F 97.5 F L Pulse Rate 99 H 89 Respiratory Rate 18 18 Blood Pressure 128/82 123/75 Pulse Oximetry 98 98 Intake & Output 03/27/18 03/28/18 03/28/18 18:59 06:59 18:59 Intake Total 1088 / 1088 1105 / 1105 Output Total 100 / 100 700 / 700 Balance 988 / 988 405 / 405 Intake: IV 1088 / 1088 1105 / 1105 NS Inj 1,000 ML @ 60 mls/hr IV. 888 / 888 1000 / 1000 CONT .[id number] [facility] Rx#:[id number] Zosyn 2.25 GM Premix 50 ML @ 100 / 100 100 mls/hr IV.SIG Q6H [facility] Rx#: [id number] Rocephin Inj 2,000 MG In NS Inj 100 / 100 100 ML @ 200 mls/hr IV.SIG Q24H [facility] Rx#:[id number] Keppra Inj 500 MG In NS Inj 100 105 / 105 ML @ 400 mls/hr IV.SIG ONCE ONE Rx#:[id number] Output: Urine 100 / 100 700 / 700 Other: # Voids 1 Date of Last Bowel Movement 03/26/18 # Incontinent Bowel Movements 1 Narrative: GENERAL: This is a pleasant 77 yo male, appears chronically ill, weak, in no apparent distress. SKIN: Warm, dry, intact, no ecchymosis, left chest lesion nondraining. CARDIOVASCULAR: Regular rate, irregular rhythm without murmurs, gallops, or rubs. RESPIRATORY: Clear to auscultation diminished breath sounds at bases, no wheezing or rhonchi noted GASTROINTESTINAL: Abdomen soft, non-tender, nondistended. Normal active bowel sounds, no CVA tenderness MUSCULOSKELETAL: Extremities without clubbing, cyanosis, or edema. NEURO: Alert & Oriented x4 to person, place, time, situation. Moves all ext x4. - Urinary Catheter Management Straight Cath placed during this visit: yes Reason for continuing: Not indwelling catheter Insertion date: 03/25/18 Insertion time: 17:25 Results - Labs CBC & Chem 7: 03/28/18 06:24 03/28/18 06:24 Laboratory Results - last 24 hr 03/27/18 03/27/18 03/27/18 10:07 13:57 17:04 WBC RBC Hgb Hct MCV MCH MCHC RDW Plt Count MPV Prelim Diff (Auto) Neut % (Auto) Lymph % (Auto) [place] % (Auto) Eos % (Auto) Baso % (Auto) Neut # (Auto) Lymph # (Auto) [place] # (Auto) Eos # (Auto) Baso # (Auto) WBC Differential Diff Scan Differential Comment Sodium Potassium 4.3 D Chloride Carbon Dioxide Anion Gap BUN Creatinine Estimated GFR POC Glucose 284 H 287 H Random Glucose Calcium Phosphorus Albumin 03/27/18 03/28/18 03/28/18 20:58 06:24 06:24 WBC 7.3 RBC 4.76 Hgb 13.7 Hct 42.1 MCV 88.5 MCH 28.8 MCHC 32.5 RDW 17.2 Plt Count 81 L MPV 10.0 Prelim Diff (Auto) Slide review pending Neut % (Auto) 77.8 H Lymph % (Auto) 5.7 L [place] % (Auto) 12.0 H Eos % (Auto) 4.1 H Baso % (Auto) 0.4 Neut # (Auto) 5.6 Lymph # (Auto) 0.4 L [place] # (Auto) 0.9 Eos # (Auto) 0.3 Baso # (Auto) 0.0 WBC Differential . Diff Scan Auto diff confirmed Differential Comment . Sodium 141 Potassium 4.0 Chloride 102 Carbon Dioxide 30.3 Anion Gap 9 BUN 46 H Creatinine 1.53 H Estimated GFR 44 L POC Glucose 245 H Random Glucose 148 H Calcium 8.7 Phosphorus 3.0 Albumin 2.1 L 03/28/18 07:57 WBC RBC Hgb Hct MCV MCH MCHC RDW Plt Count MPV Prelim Diff (Auto) Neut % (Auto) Lymph % (Auto) [place] % (Auto) Eos % (Auto) Baso % (Auto) Neut # (Auto) Lymph # (Auto) [place] # (Auto) Eos # (Auto) Baso # (Auto) WBC Differential Diff Scan Differential Comment Sodium Potassium Chloride Carbon Dioxide Anion Gap BUN Creatinine Estimated GFR POC Glucose 153 H Random Glucose Calcium Phosphorus Albumin Microbiology 03/25/18 16:45 Catheterized Urine Urine Culture - Final Enterobacter gergoviae - Imaging Impressions Chest X-Ray 03/27/18 22:21 CONCLUSION: Small left pneumothorax, slightly decreased from March 25. Small left effusion with left basilar airspace disease. Prior sternotomy. Assessment and Plan - Plan 77-year-old man with On admission with Sepsis, WBCs 17.0, HR 100, source pyelonephritis likely E. Coli H/o BPH, urinary retention Urine shows large leukocyte esterase, positive protein, rare bacteria, positive blood -Currently on Rocephin 2 g IV daily per ID pending culture report -Bladder ultrasound pending BPH with obstruction -Currently on Flomax and Proscar -Appreciate input from urology Acute kidney injury on chronic kidney disease History of renal transplant -Appreciate input from nephrology -Gentle IVF due to CHF history -Trend creatinine -Avoid nephrotoxins Weakness, suspect related to kidney infection -PT eval and Treat Systolic CHF, chronic. Doesn't appear in exacerbation at this time Last echo September 2017 shows EF 20-25% -Monitor for fluid overload -Continue to hold diuretics including Demadex and Aldactone - lasix held at this time A. fib, chronic EKG reviewed and shows A. fib -Continue home medications -Monitor telemetry Diabetes, chronic -Accu-Cheks with sliding scale insulin -Diabetic diet -Hold home 70/30 for now Seizures, chronic -Continue Home medications including Keppra Left chest lesion follows with dermatology as OP. DVT prophylaxis: Heparin SQ
--- NOTE | 2018-03-28 11:00 | P.PNID ---
Subjective Remarks: Patient is a 77-year-old male, brought into the hospital for evaluation of weakness, and dysuria that started on the day of admission. He apparently felt very weak and has not been doing his usual activity. Patient normally walks with a walker. He has been very weak on the day of admission that he was not able to ambulate. Patient has known kidney transplant more than 20 years ago, and he has some mild renal insufficiency. He has had urological evaluation about a year ago by Dr. Lee and at that time they did not find any abnormality. He had no evidence of incomplete emptying of his bladder. His cystoscopy was also okay. He has been known to have some prostate enlargement but it is no surgical intervention needs to be done during evaluation. Patient has not had any fever chills or sweats. He denies any nausea or vomiting or any back pain. On presentation he is afebrile. His white count is elevated. His creatinine is 2. His urinalysis is showing pyuria. Patient apparently has had some urinary tract infection in the past, but the last time was when he was admitted back in January and reportedly he had a Mackenzie catheter that was why he developed a UTI. He has not had any problem after that hospitalization. Infectious disease consultation has been requested to assist with evaluation and treatment. Notes reviewed Temps ok Mental status much improved Sitting up in chair Bladder scan volume running high but less than 400, mostly close to 300+ UC with Enterobacter WBC better Creatinine better US with stable mild hydronephrosis Antibiotics: Rocephin Lines: PIV Past Medical History: CAD (coronary artery disease) CHF (congestive heart failure) CVA (cerebral vascular accident) Diabetes Hemangioma SHAUNA (renal osteodystrophy) H/O parathyroidectomy History of YAG laser capsulotomy of lens History of cardiac cath Kidney transplanted S/P CABG x 5 Status post laser cataract surgery of both eyes Allergies/Adverse Reactions: Allergies aspirin Allergy (Severe, Verified 03/19/18 16:59) Bleeding diclofenac Allergy (Severe, Verified 03/19/18 16:59) bleeding Had a kidney transplant etodolac Allergy (Severe, Verified 03/19/18 16:59) bleeding Had a kidney transplant flurbiprofen Allergy (Severe, Verified 03/19/18 16:59) bleeding Had a kidney transplant haloperidol Allergy (Severe, Verified 03/19/18 16:59) Confusion ibuprofen Allergy (Severe, Verified 03/19/18 16:59) bleeding Had a kidney transplant indomethacin Allergy (Severe, Verified 03/19/18 16:59) bleeding Had a kidney transplant ketoprofen Allergy (Severe, Verified 03/19/18 16:59) bleeding Had a kidney transplant ketorolac Allergy (Severe, Verified 03/19/18 16:59) bleeding Had a kidney transplant naproxen Allergy (Severe, Verified 03/19/18 16:59) bleeding Had a kidney transplant oxaprozin Allergy (Severe, Verified 03/19/18 16:59) bleeding Had a kidney transplant oxcarbazepine Allergy (Severe, Verified 03/19/18 16:59) Bleeding Objective Vital Signs 03/27/18 11:49 03/27/18 16:00 03/27/18 20:00 Temperature 98.9 F 97.9 F 97.4 F L Pulse Rate 88 89 87 Respiratory Rate 18 16 18 Blood Pressure 105/56 L 103/58 L 107/61 Pulse Oximetry 95 95 94 L 03/28/18 00:00 03/28/18 04:00 03/28/18 08:00 Temperature 98 F 97.5 F L 97.3 F L Pulse Rate 99 H 89 113 H Respiratory Rate 18 18 21 Blood Pressure 128/82 123/75 103/61 Pulse Oximetry 98 98 99 Intake & Output 03/27/18 03/28/18 03/28/18 18:59 06:59 18:59 Intake Total 1088 / 1088 1105 / 1105 Output Total 100 / 100 700 / 700 Balance 988 / 988 405 / 405 Intake: IV 1088 / 1088 1105 / 1105 NS Inj 1,000 ML @ 60 mls/hr IV. 888 / 888 1000 / 1000 CONT .[id number] [facility] Rx#:[id number] Zosyn 2.25 GM Premix 50 ML @ 100 / 100 100 mls/hr IV.SIG Q6H [facility] Rx#: [id number] Rocephin Inj 2,000 MG In NS Inj 100 / 100 100 ML @ 200 mls/hr IV.SIG Q24H [facility] Rx#:[id number] Keppra Inj 500 MG In NS Inj 100 105 / 105 ML @ 400 mls/hr IV.SIG ONCE ONE Rx#:[id number] Output: Urine 100 / 100 700 / 700 Other: # Voids 1 Date of Last Bowel Movement 03/26/18 # Incontinent Bowel Movements 1 03/25/18 16:45 Catheterized Urine Urine Culture - Final Enterobacter gergoviae Lab - Hematology Results 03/27/18 03/28/18 06:23 06:24 WBC 12.7 H 7.3 RBC 4.81 4.76 Hgb 13.8 13.7 Hct 41.7 42.1 MCV 86.7 88.5 MCH 28.7 28.8 MCHC 33.1 32.5 RDW 17.3 H 17.2 Plt Count 81 L 81 L MPV 9.4 10.0 Prelim Diff (Auto) Slide review pending Slide review pending Neut % (Auto) 84.0 H 77.8 H Lymph % (Auto) 4.1 L 5.7 L [place] % (Auto) 10.5 H 12.0 H Eos % (Auto) 1.0 4.1 H Baso % (Auto) 0.4 0.4 Neut # (Auto) 10.6 H 5.6 Lymph # (Auto) 0.5 L 0.4 L [place] # (Auto) 1.3 H 0.9 Eos # (Auto) 0.1 0.3 Baso # (Auto) 0.0 0.0 WBC Differential . . Diff Scan Auto diff confirmed Auto diff confirmed Differential Comment . . Lab - Chemistry Results 03/26/18 03/26/18 03/26/18 11:43 18:04 21:47 Sodium Potassium Chloride Carbon Dioxide Anion Gap BUN Creatinine Estimated GFR POC Glucose 271 H 249 H 239 H Random Glucose Calcium Phosphorus Albumin Vitamin D 25-Hydroxy PTH Intact 03/27/18 03/27/18 03/27/18 01:41 03:32 03:32 Sodium 140 Potassium 5.9 H D Chloride 100 Carbon Dioxide 33.7 H Anion Gap 6 BUN 53 H Creatinine 2.27 H Estimated GFR 28 L POC Glucose 158 H Random Glucose 158 H D Calcium 8.4 L Phosphorus 2.9 D Albumin 2.4 L Vitamin D 25-Hydroxy 27.6 L PTH Intact 9.1 L 03/27/18 03/27/18 03/27/18 07:38 10:07 13:57 Sodium Potassium 4.3 D Chloride Carbon Dioxide Anion Gap BUN Creatinine Estimated GFR POC Glucose 164 H 284 H Random Glucose Calcium Phosphorus Albumin Vitamin D 25-Hydroxy PTH Intact 03/27/18 03/27/18 03/28/18 17:04 20:58 06:24 Sodium 141 Potassium 4.0 Chloride 102 Carbon Dioxide 30.3 Anion Gap 9 BUN 46 H Creatinine 1.53 H Estimated GFR 44 L POC Glucose 287 H 245 H Random Glucose 148 H Calcium 8.7 Phosphorus 3.0 Albumin 2.1 L Vitamin D 25-Hydroxy PTH Intact 03/28/18 07:57 Sodium Potassium Chloride Carbon Dioxide Anion Gap BUN Creatinine Estimated GFR POC Glucose 153 H Random Glucose Calcium Phosphorus Albumin Vitamin D 25-Hydroxy PTH Intact Imaging: ITS Impressions Head CT 03/25/18 16:32 CONCLUSION: 1. No acute intracranial abnormality. 2. Suggestion of a mass in the right frontal extra-axial space measuring 2.9 x 1.3 cm. There is also dural thickening more inferiorly. Contrasted MRI recommended for further characterization. 3. Right-sided craniotomy and encephalomalacia in the right frontal right temporal lobes. . Renal Ultrasound 03/26/18 00:00 CONCLUSION: 1. Stable mild hydroureteronephrosis. 2. Stable borderline to mildly elevated resistive indices. Chest X-Ray 03/27/18 22:21 CONCLUSION: Small left pneumothorax, slightly decreased from March 25. Small left effusion with left basilar airspace disease. Prior sternotomy. Physical Exam: GENERAL: awake and alert, not in respiratory distress. Up in chair SKIN: Cool and dry. No generalized rash, no ecchymoses and no evidence of embolic lesions. He has a mass on his L upper chest with some dried blood. HEAD: Atraumatic. Normocephalic. No temporal wasting, or tenderness. EYES: Jolly conjunctiva. No petechia or hemorrhage. Pupils equal, round and reactive to light. Extraocular movements full and intact. No scleral icterus. No injection or drainage. EARS, NOSE AND THROAT: Nose without bleeding or purulent nasal discharge. No sinus tenderness. Mucous membranes moist, he is edentulous. NECK: Trachea midline. Supple and not tender, no meningeal signs CARDIOVASCULAR: Regular rate and rhythm. No murmurs, rubs or gallops heard RESPIRATORY: Clear to auscultation. Breath sounds equal bilaterally. No rales , wheezing or rhonchi ABDOMEN: Soft, nondistended, not tender. Bowel sounds present and normoactive. No guarding. No rebound. No organomegaly. EXTREMITIES: No clubbing, cyanosis, or edema.No joint effusion, has good ROM. No calf tenderness. Well perfused and warm. NEUROLOGICAL: Awake and alert. Cranial nerves grossly intact. Motor grossly within normal limits. PSYCHIATRIC: Normal affect, calm and cooperative. LINE: No evidence of infection Assessment and Plan - Plan Impression UTI, patient S/P renal transplant, known BPH Renal insufficiency, post transplant >20 years ago Hx CHF Sigifredo effusions Mass L upper chest Recommendation Bladder scan volum running high Use Cipro to complete UTI Rx Follow creatinine Monitor progress Clinically doing well from ID standpoint
--- NOTE | 2018-03-28 11:46 | P.PNNP ---
Subjective Interval history: The patient is a 77yo [place] male who is known to our services for CKD. He was brought into this facility by his on 03/25 for worsening weakness, fatigue , and dysuria which occurred suddenly that day. He has hx of recurrent UTIs and urinary retention for which he follows with Dr. John. He was last seen by our services during his last admission in January where he was being treated for cardiorenal syndrome. He was discharged to [place] on with a SCr of 1.48 and eGFR 48. SCr on 03/20/18 was 1.59 eGFR 42 (admitted here for observation for PTX post thoracentesis). Admitting SCr on 03/25 at 2.08 with eGFR 31 that worsened slightly to 2.13 and eGFR 30 at consultation. 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 Has been on Torsemide 40mg QD and Spironolactone 25mg QD since his discharge in January as per cardiology (not had outpatient appointment with our office since discharge). Overall doing well on this, but the reports that his appetite has been poor and has not been keeping up with his fluids as he should. Denies any NSAIDs at home. He is a renal transplant recipient, but not on immunosuppressives 2/2 to graft tolerance. 03/27/18 Pt more alert. and daughter at bedside who also endorse clinical improvement. 03/28/18 Pt sitting up in chair. More alert, conversive. and daughter at bedside who endorse he is back to his baseline and are anxious for him to be discharged home. Eating well. Physical Exam Vital signs: Vital Signs 03/27/18 11:49 03/27/18 16:00 03/27/18 20:00 Temperature 98.9 F 97.9 F 97.4 F L Pulse Rate 88 89 87 Respiratory Rate 18 16 18 Blood Pressure 105/56 L 103/58 L 107/61 Pulse Oximetry 95 95 94 L 03/28/18 00:00 03/28/18 04:00 03/28/18 08:00 Temperature 98 F 97.5 F L 97.3 F L Pulse Rate 99 H 89 113 H Respiratory Rate 18 18 21 Blood Pressure 128/82 123/75 103/61 Pulse Oximetry 98 98 99 Intake & Output 03/27/18 03/28/18 03/28/18 18:59 06:59 18:59 Intake Total 1088 / 1088 1105 / 1105 Output Total 100 / 100 700 / 700 Balance 988 / 988 405 / 405 Intake: IV 1088 / 1088 1105 / 1105 NS Inj 1,000 ML @ 60 mls/hr IV. 888 / 888 1000 / 1000 CONT .[id number] [facility] Rx#:[id number] Zosyn 2.25 GM Premix 50 ML @ 100 / 100 100 mls/hr IV.SIG Q6H [facility] Rx#: [id number] Rocephin Inj 2,000 MG In NS Inj 100 / 100 100 ML @ 200 mls/hr IV.SIG Q24H [facility] Rx#:[id number] Keppra Inj 500 MG In NS Inj 100 105 / 105 ML @ 400 mls/hr IV.SIG ONCE ONE Rx#:[id number] Output: Urine 100 / 100 700 / 700 Other: # Voids 1 Date of Last Bowel Movement 03/26/18 # Incontinent Bowel Movements 1 - Constitutional no acute distress - Routine HEENT Exam Head: Present: normocephalic - Routine Neck Exam Present: supple - Routine Respiratory Exam Present: CTA bilaterally - Routine Cardiovascular Exam Present: RRR, S1, S2 - Routine Extremities Exam Absent: edema - Routine Neurological Exam Present: alert - Urinary Catheter Management Straight Cath placed during this visit: yes Reason for continuing: Not indwelling catheter Insertion date: 03/25/18 Insertion time: 17:25 Assessment and Plan - Assessment (1) Acute on chronic renal insufficiency Code(s): N28.9 - Disorder of kidney and ureter, unspecified; N18.9 - Chronic kidney disease, unspecified Status: Acute Plan: Baseline SCr 1.4-1.6----renal function improved to baseline Acute decline potentially related to volume depletion 2/2 to poor oral intake with diuretics. He also has a urine infection with leukocytosis which may be contributing to azotemia. OK to be discharged from renal standpoint if cleared by primary and other specialties. To resume outpatient diuretics as before: Torsemide 40mg po QD Spironolactone 25mg QD Reduce KCl to 10meq QD. Would like a repeat renal panel to be drawn as outpatient next Saturday with f/u in office in 2 weeks. To leave on IVF until discharge. Gentle hydration with close monitoring of volume overload as he has an EF of 20- 25%. Medications should be adjusted for the patient's renal decline. Avoid nephrotoxic medications including iodinated contrast dyes and NSAIDs. Avoid gadolinium. (2) Urinary tract infection Code(s): N39.0 - Urinary tract infection, site not specified Status: Acute Plan: Abx as per ID. Leukocytosis improved. (3) Hx of kidney transplant Code(s): Z94.0 - Kidney transplant status Status: Chronic Plan: Not on immunosuppressives. Renal transplant US pending. (4) Cardiomyopathy Code(s): I42.9 - Cardiomyopathy, unspecified Status: Chronic Qualifiers: Cardiomyopathy type: other Qualified Code(s): I42.8 - Other cardiomyopathies Plan: EF 20-25% September 2017 (5) SHAUNA (renal osteodystrophy) Code(s): N25.0 - Renal osteodystrophy Status: Acute Plan: Continue on daily Calcitriol. (6) Right frontal lobe mass Code(s): G93.9 - Disorder of brain, unspecified Status: Acute Plan: Suggestion of a mass in the right frontal extra-axial space measuring 2.9 x 1.3 cm. There is also dural thickening more inferiorly. Contrasted MRI recommended for further characterization. Will defer w/u to primary team if indicated. (7) Recurrent left pleural effusion Code(s): J90 - Pleural effusion, not elsewhere classified Status: Acute Plan: Mgmt as per pulmonology.
[2018-03-28] MEDS: Ciprofloxacin 500 MG Tablet PO SCH ×2 (14:34→20:32)
[2018-03-28] MEDS: Montelukast 10 MG Tablet PO SCH (17:49)
[2018-03-29 04:14] VITALS: RESP 18
[2018-03-29] MEDS: Calcium Carbonate 500 MG Tablet PO SCH (09:02)
[2018-03-29] MEDS: Calcitriol 0.25 MCG Capsule PO SCH (09:02)
[2018-03-29] MEDS: Magnesium Oxide 400 MG Tablet PO SCH (09:02)
[2018-03-29] MEDS: Isosorbide Mononitrate 30 MG ER 24HR Tablet (Imdur) PO SCH (09:02)
[2018-03-29] MEDS: Ciprofloxacin 500 MG Tablet PO SCH (09:02)
[2018-03-29] MEDS: Finasteride 5 MG Tablet PO SCH (09:03)
[2018-03-29] MEDS: Heparin - SQ 10,000 UNITS/ML Vial SQ SCH (09:03)
[2018-03-29] MEDS: levETIRAcetam 500 MG Tablet PO SCH (09:03)
[2018-03-29] MEDS: Insulin NovoLOG Aspart Correctional Sugar Inj SQ SCH (09:04)
--- NOTE | 2018-03-29 11:24 | P.PN ---
Subjective Interval history: Follow-up sepsis/pyelonephritis/BPH with obstruction/history of kidney transplant March 28, 2018-patient seen and examined, afebrile and denies any pelvic pain. by the bedside. March 29, 2018-patient seen and examined, reported to episode of diarrhea yesterday however none since this morning. Good urine output. Currently afebrile. Physical Exam Vital signs: Vital Signs 03/28/18 12:00 03/28/18 16:00 03/28/18 20:00 Temperature 97.8 F 98.9 F 97.9 F Pulse Rate 99 H 79 91 H Respiratory Rate 20 20 18 Blood Pressure 123/60 137/84 111/57 L Pulse Oximetry 99 87 L 98 03/29/18 00:00 03/29/18 04:13 03/29/18 08:00 Temperature 98.0 F 97.6 F 97.3 F L Pulse Rate 85 103 H 56 L Respiratory Rate 16 18 18 Blood Pressure 109/57 L 99/65 L 126/59 L Pulse Oximetry 94 L 97 98 Intake & Output 03/28/18 03/29/18 03/29/18 18:59 06:59 18:59 Intake Total 1440 / 1440 1100 / 1100 100 / 100 Output Total 600 / 600 100 / 100 Balance 840 / 840 1000 / 1000 100 / 100 Weight 78 kg Intake: IV 1100 / 1100 NS Inj 1,000 ML @ 60 mls/hr IV. 1000 / 1000 CONT .[id number] [facility] Rx#:[id number] Rocephin Inj 2,000 MG In NS Inj 100 / 100 100 ML @ 200 mls/hr IV.SIG Q24H [facility] Rx#:[id number] Oral 1440 / 1440 100 / 100 Output: Urine 600 / 600 100 / 100 Other: Post Void Residual 350 # Voids 3 Date of Last Bowel Movement 03/28/18 03/28/18 # Incontinent Bowel Movements 3 Narrative: GENERAL: in no apparent distress. SKIN: Warm, dry, intact, no ecchymosis, left chest lesion nondraining. CARDIOVASCULAR: Regular rate, irregular rhythm without murmurs, gallops, or rubs. RESPIRATORY: Clear to auscultation diminished breath sounds at bases, no wheezing or rhonchi noted GASTROINTESTINAL: Abdomen soft, non-tender, nondistended. Normal active bowel sounds, no CVA tenderness MUSCULOSKELETAL: Extremities without clubbing, cyanosis, or edema. NEURO: Alert & Oriented x4 to person, place, time, situation. Moves all ext x4. - Urinary Catheter Management Straight Cath placed during this visit: yes Reason for continuing: Not indwelling catheter Insertion date: 03/25/18 Insertion time: 17:25 Results - Labs CBC & Chem 7: 03/28/18 06:24 03/28/18 06:24 Laboratory Results - last 24 hr 03/28/18 03/28/18 03/28/18 13:57 13:59 17:05 POC Glucose 323 H 364 H 268 H 03/28/18 03/28/18 03/29/18 17:06 20:31 04:12 POC Glucose 250 H 111 H 131 H - Procedures None Assessment and Plan - Plan 77-year-old man with On admission with Sepsis, WBCs 17.0, HR 100, source pyelonephritis H/o BPH, urinary retention -Urine culture positive for Enterobacter Gergoviae -Currently on Cipro 400 mg q. 12-hour IV per ID . Patient will be discharged on Cipro 500 mg every 12 hours until April 11, 2018 BPH with obstruction -Currently on Flomax and Proscar -Appreciate input from urology Acute kidney injury on chronic kidney disease History of renal transplant -Appreciate input from nephrology. Patient to follow outpatient with nephrology. Will have repeat BMP next week -Gentle IVF due to CHF history -Trend creatinine -Avoid nephrotoxins Weakness, suspect related to kidney infection -PT eval and Treat Systolic CHF, chronic. Doesn't appear in exacerbation at this time Last echo September 2017 shows EF 20-25% -Monitor for fluid overload -Continue to hold diuretics including Demadex and Aldactone. However this medication will be resumed upon discharge - lasix held at this time A. fib, chronic EKG reviewed and shows A. fib -Continue home medications -Monitor telemetry Diabetes, chronic -Accu-Cheks with sliding scale insulin -Diabetic diet -Hold home 70/30 for now Seizures, chronic -Continue Home medications including Keppra Diarrhea Rule out C. difficile with C. difficile PCR and treat accordingly March Left chest lesion follows with dermatology as OP. DVT prophylaxis: Heparin SQ
--- NOTE | 2018-03-29 11:27 | P.DCO ---
- Diagnosis (1) Sepsis Status: Acute - Physical Therapy Order: Evaluate and treat - Case Management Consult No - Certification I have seen patient Joselito Olson on 03/29/18. My clinical findings support the need for the requested home health care services because: Patient has SOB, Deconditioned with increased weakness I certify that my clinical findings support that this patient is homebound because: Poor cardiac reserve
[2018-03-29 12:17] VITALS: BP 90/60; PULSE 113; TEMP 97.4; O2SAT 95
--- NOTE | 2018-03-29 12:40 | P.DS ---
Date of admission: 03/25/18 22:27 Primary care physician: Luis Angel Beasley MD Brief History from admission: 77-year-old female 77-year-old male with a history of diabetes, CVA, CHF, CAD, CKD, BPH, seizures, anxiety, A. fib and frequent UTIs was brought to the ED by his for weakness and dysuria today. Per the patient's the patient was just experiencing weakness today and very fatigue. Patient states he does complain of burning with urination and increased urination. No fevers or chills documented at home. Patient denies any chest pain, shortness of breath, dizziness or hematuria. Patient does walk with a walker but according to his was very hard to ambulate him today. He does have physical therapy come to his home 3 times a week and last week he underwent a thoracentesis with Dr. Owen, and followed up with him yesterday and was well at this time. DS: Diagnosis - Discharge Diagnosis (1) Sepsis Status: Acute DS: Medications - Discharge Medications Prescriptions: ciprofloxacin HCl 500 mg PO Q12HR #27 tab DS: Summary Hospital Course: While in the hospital, patient was treated for: On admission with Sepsis, WBCs 17.0, HR 100, source pyelonephritis H/o BPH, urinary retention -Urine culture positive for Enterobacter Gergoviae -Currently on Cipro 400 mg q. 12-hour IV per ID . Patient will be discharged on Cipro 500 mg every 12 hours until April 11, 2018 BPH with obstruction -Currently on Flomax and Proscar -Appreciate input from urology Acute kidney injury on chronic kidney disease History of renal transplant -Appreciate input from nephrology. Patient to follow outpatient with nephrology. Will have repeat BMP next week -Gentle IVF due to CHF history -Trend creatinine -Avoid nephrotoxins Weakness, suspect related to kidney infection -PT eval and Treat Systolic CHF, chronic. Doesn't appear in exacerbation at this time Last echo September 2017 shows EF 20-25% -Monitor for fluid overload -Continue to hold diuretics including Demadex and Aldactone. However this medication will be resumed upon discharge - lasix held at this time. Will restart KCl however 10mg daily A. fib, chronic EKG reviewed and shows A. fib -Continue home medications -Monitor telemetry Diabetes, chronic -Accu-Cheks with sliding scale insulin -Diabetic diet -Hold home 70/30 for now; however resume on discharge Seizures, chronic -Continue Home medications including Keppra Left chest lesion follows with dermatology as OP. DVT prophylaxis: Heparin SQ - Time Spent with Patient Total time spent providing and/or coordinating discharge services: Greater than 30 minutes - Quality: VTE Deep Vein Thrombosis/Pulmonary Embolism Present on Admission: No Exam Vital signs: Vital Signs 03/28/18 16:00 03/28/18 20:00 03/29/18 00:00 Temperature 98.9 F 97.9 F 98.0 F Pulse Rate 79 91 H 85 Respiratory Rate 20 18 16 Blood Pressure 137/84 111/57 L 109/57 L Pulse Oximetry 87 L 98 94 L 03/29/18 04:13 03/29/18 08:00 03/29/18 12:00 Temperature 97.6 F 97.3 F L 97.4 F L Pulse Rate 103 H 56 L 113 H Respiratory Rate 18 18 18 Blood Pressure 99/65 L 126/59 L 90/60 L Pulse Oximetry 97 98 95 Intake & Output 03/28/18 03/29/18 03/29/18 18:59 06:59 18:59 Intake Total 1440 / 1440 1100 / 1100 100 / 100 Output Total 600 / 600 100 / 100 Balance 840 / 840 1000 / 1000 100 / 100 Weight 78 kg Intake: IV 1100 / 1100 NS Inj 1,000 ML @ 60 mls/hr IV. 1000 / 1000 CONT .[id number] [facility] Rx#:[id number] Rocephin Inj 2,000 MG In NS Inj 100 / 100 100 ML @ 200 mls/hr IV.SIG Q24H [facility] Rx#:[id number] Oral 1440 / 1440 100 / 100 Output: Urine 600 / 600 100 / 100 Other: Post Void Residual 350 # Voids 3 Date of Last Bowel Movement 03/28/18 03/28/18 # Incontinent Bowel Movements 3 Narrative: GENERAL: in no apparent distress. SKIN: Warm, dry, intact, no ecchymosis, left chest lesion nondraining. CARDIOVASCULAR: Regular rate, irregular rhythm without murmurs, gallops, or rubs. RESPIRATORY: Clear to auscultation diminished breath sounds at bases, no wheezing or rhonchi noted GASTROINTESTINAL: Abdomen soft, non-tender, nondistended. Normal active bowel sounds, no CVA tenderness MUSCULOSKELETAL: Extremities without clubbing, cyanosis, or edema. NEURO: Alert & Oriented x4 to person, place, time, situation. Moves all ext x4. Results Procedures completed during hospitalization: None Labs on day of discharge: Labs from last 24 hours 03/29/18 03/28/18 03/28/18 04:12 20:31 17:06 POC Glucose 131 H 111 H 250 H 03/28/18 03/28/18 03/28/18 17:05 13:59 13:57 POC Glucose 268 H 364 H 323 H - Impressions ITS Impressions Head CT 03/25/18 16:32 CONCLUSION: 1. No acute intracranial abnormality. 2. Suggestion of a mass in the right frontal extra-axial space measuring 2.9 x 1.3 cm. There is also dural thickening more inferiorly. Contrasted MRI recommended for further characterization. 3. Right-sided craniotomy and encephalomalacia in the right frontal right temporal lobes. . Renal Ultrasound 03/26/18 00:00 CONCLUSION: 1. Stable mild hydroureteronephrosis. 2. Stable borderline to mildly elevated resistive indices. Chest X-Ray 03/27/18 22:21 CONCLUSION: Small left pneumothorax, slightly decreased from March 25. Small left effusion with left basilar airspace disease. Prior sternotomy. Discharge Plan - Discharge Disposition Patient Disposition: /Home Health Service - Discharge Condition Condition: Fair - Discharge Order Discharge Orders: Discharge Order (Routine); Ordered 03/29/18 Ordered By: Fran Vee - Physicians Team Primary Care Provider: Luis Angel Beasley Attending Provider: Fran Vee Other Providers: Amanda Valencia MD ; Andres Pro MD ; Song Hurd MD
== END 2018-03-29 14:12 | disposition home health service (06) ==
LOC: NEPE 15:55 → NEDA 15:55 → NEPFCDU 23:20 → NEDH 03-27 09:46 → NEPFCDU 03-27 09:51 → N05 03-27 12:51
PROVIDERS: ADMIT Hospitalist; ATTEND Hospitalist

== ENCOUNTER 2018-05-02 11:34 | Inpatient (IN) ==
[2018-05-02 12:41] LABS: Baso % (Auto) 0.2 % (0.0-2.0); Eos % (Auto) 0.2 % (0.0-4.0); Hematocrit 42.9 % (39.0-51.0); Hemoglobin 13.9 gm/dL (13.0-17.0); Lymph # (Auto) 0.6 th/mm3 (1.0-4.8); Lymph % (Auto) 5.6 % (9.0-44.0); Mean Corpuscular HGB Conc 32.4 % (32.0-36.0); Mean Corpuscular Hemoglobin 28.7 pg (27.0-34.0); Mean Corpuscular Volume 88.7 fL (80.0-100.0); Mean Platelet Volume 9.4 fL (7.0-11.0); Mono # (Auto) 1.1 th/mm3 (0.0-0.9); Mono % (Auto) 9.8 % (0.0-8.0); Neut # (Auto) 9.7 th/mm3 (1.8-7.7); Neut % (Auto) 84.2 % (16.0-70.0); Platelet Count 116 th/mm3 (150-450); Red Blood Count 4.84 mil/mm3 (4.50-5.90); Red Cell Distribution Width 17.2 % (11.6-17.2); White Blood Count 11.5 th/mm3 (4.0-11.0)
--- NOTE | 2018-05-02 12:43 | XR ---
EXAM DATE: 05/02/2018 12:39 PM EST AGE/SEX: 77 years / Male INDICATIONS: . Congestion, shortness of breath, pleural effusion. CLINICAL DATA: This is the patient's initial encounter. Patient reports that signs and symptoms have been present for 2 months and indicates a pain score of 0/10. MEDICAL/SURGICAL HISTORY: Cardiovascular disease. Myocardial infarction. CABG. COMPARISON: C, CHEST 1V SINGLE AP, 03/27/2018. . FINDINGS: The patient is status post sternotomy. The heart size is borderline enlarged. This increased density at the left base related to at least a moderate effusion. Some degree of accompanying atelectasis or consolidation at the left base can be considered. The right lung is clear. CONCLUSION: Moderate left pleural effusion with some accompanying atelectasis or consolidation at the left base. Patient status post sternotomy. Electronically signed by: Mendez Julian MD 05/02/2018 12:42 PM EST
[2018-05-02 13:08] LABS: Alanine Aminotransferase 10 U/L (12-78); Albumin 2.9 g/dL (3.4-5.0); Anion Gap 8 meq/L (5-15); Aspartate Aminotransferase 13 U/L (15-37); Blood Urea Nitrogen 38 mg/dL (7-18); Calcium 8.8 mg/dL (8.5-10.1); Carbon Dioxide 32.4 meq/L (21.0-32.0); Chloride 101 meq/L (98-107); Glomerular Filtration Rate 44 mL/min (>89); Glucose,Random 263 mg/dL (74-106); Magnesium 1.9 mg/dL (1.5-2.5); Potassium 4.2 meq/L (3.5-5.1); Sodium 141 meq/L (136-145)
[2018-05-02 13:12] LABS: Alkaline Phosphatase 136 U/L (45-117); Total Protein 7.3 g/dL (6.4-8.2); Troponin I 0.03 ng/mL (0.02-0.05)
[2018-05-02 13:28] LABS: Bacteria,Urine Rare /hpf; Bilirubin,Urine Negative (Negative); Clarity,Urine Hazy (Clear); Color,Urine Yellow (Yellw/Straw); Glucose,Urine (UA) Negative (Negative); Hyaline Casts,Urine 18 /lpf (0-3); Leukocyte Esterase,Urine Negative (Negative); Mucus,Urine Few /lpf (Occasional); Nitrite,Urine Negative (Negative); Specific Gravity,Urine 1.012 (1.002-1.035); Squamous Epithelial Cell,Urine 1 /hpf (0-5)
[2018-05-02] MEDS ORDERED: Piperacil/Tazo 3.375 GM Premix 50 ML IV.SIG ONE (13:31)
[2018-05-02] MEDS ORDERED: Azithromycin Inj 500 MG in Sodium Chlor 0.9% Inj 250 ML IV.SIG ONE (13:31)
[2018-05-02] MEDS ORDERED: Vancomycin Inj 1,000 MG in Sodium Chlor 0.9% Inj 250 ML IV.SIG ONE (13:31)
--- NOTE | 2018-05-02 13:36 | ED ---
HPI General Chief Complaint: Altered Mental Status Stated Complaint: AMS Complaint Time Seen by Provider: 05/02/18 12:02 Source: family Limitations: altered mental status History of Present Illness HPI narrative: Patient is a 77-year-old male, past medical history significant for CHF, dementia, CKD, atrial fibrillation, who presents with complaint of altered mental status. Per family he has had some generalized weakness with a productive cough and slight worsening confusion over the last several days. Family states that he was on the commode not straining at that time when he slumped over for several seconds. He did not fall or hit his head and they state that he did maintain his posture in general. He did not urinate or defecate on himself at that time. Patient denies any complaints at this time. He has had watery, nonbloody diarrhea over the last several days. MD complaint: Reports altered mental status, confusion and decreased responsiveness Onset (ago): minute(s) Severity: mild Consistency of symptoms: waxing and waning Associated symptoms: Reports cough Related Data Home Medications Medication Instructions Recorded Confirmed bethanechol chloride 25 mg PO BID 03/19/18 05/02/18 calcitriol 0.5 mcg PO DAILY 03/19/18 05/02/18 calcium carbonate [Calcium 500] 500 mg PO BID 03/19/18 05/02/18 finasteride 5 mg PO DAILY 03/19/18 05/02/18 insulin NPH and regular human 1 sliding scale dose SUBCUT UD 03/19/18 05/02/18 [Novolin 70/30 U-100 Insulin] isosorbide mononitrate 30 mg PO DAILY 03/19/18 05/02/18 levetiracetam 500 mg PO BID 03/19/18 05/02/18 lorazepam [Ativan] 0.5 mg PO DAILY PRN 03/19/18 05/02/18 melatonin 10 mg PO HS PRN 03/19/18 05/02/18 metoprolol succinate [Toprol XL] 12.5 mg PO DAILY 03/19/18 05/02/18 montelukast 10 mg PO QPM 03/19/18 05/02/18 ondansetron HCl [Zofran] 8 mg PO TID PRN 03/19/18 05/02/18 spironolactone 25 mg PO DAILY 03/19/18 05/02/18 Previous Rx's Medication Instructions Recorded torsemide 40 mg PO DAILY #60 tab 01/27/18 potassium chloride 10 meq PO DAILY #30 cap 03/29/18 hydrocodone-acetaminophen [[place]] 1 tab PO Q6H PRN 7 Days tab 04/28/18 Allergies Allergy/AdvReac Type Severity Reaction Status Date / Time aspirin Allergy Severe Bleeding Verified 05/02/18 11:41 diclofenac Allergy Severe bleeding Verified 05/02/18 11:41 etodolac Allergy Severe bleeding Verified 05/02/18 11:41 flurbiprofen Allergy Severe bleeding Verified 05/02/18 11:41 haloperidol Allergy Severe Confusion Verified 05/02/18 11:41 ibuprofen Allergy Severe bleeding Verified 05/02/18 11:41 indomethacin Allergy Severe bleeding Verified 05/02/18 11:41 ketoprofen Allergy Severe bleeding Verified 05/02/18 11:41 ketorolac Allergy Severe bleeding Verified 05/02/18 11:41 naproxen Allergy Severe bleeding Verified 05/02/18 11:41 oxaprozin Allergy Severe bleeding Verified 04/28/18 08:14 oxcarbazepine Allergy Severe Bleeding Verified 04/28/18 08:14 Review of Systems ROS: all other systems reviewed are negative [facility] Medical History Medical History Skin cancer (Acute) CAD (coronary artery disease) (Acute) CHF (congestive heart failure) (Acute) CVA (cerebral vascular accident) (Acute) Chronic kidney disease, stage III (moderate) (Acute) Diabetes (Acute) Hemangioma (Acute) SHAUNA (renal osteodystrophy) (Acute) Retinopathy (Acute) Surgical History Surgical History H/O parathyroidectomy (Acute) History of YAG laser capsulotomy of lens (Acute) History of cardiac cath (Acute) Kidney transplanted (Acute) S/P CABG x 5 (Acute) Status post laser cataract surgery of both eyes (Acute) Family History Family History Mother Alzheimer's dementia Hypertension Father Lymphoma Social History Social History Substance History: No History of Abuse Second Hand Smoke Exposure: No Smoking Status: Never smoker How Often Do You Have a Drink Containing Alcohol: Never Hx Recent Travel: No Recent Travel in [facility] within the Last 8 Weeks: No Recent Out of Country Travel within the Last 8 Weeks: No Immunization History Tetanus Immunization: Unsure Exam Narrative Exam Narrative: GENERAL: Well-appearing, elderly male in no acute distress SKIN: Focused skin assessment warm/dry. Sutures to left chest after having a biopsy done. They appear to be healing well but do have some associated bruising. HEAD: Atraumatic. Normocephalic. EYES: Pupils equal and round. No scleral icterus. No injection or drainage. ENT: No nasal bleeding or discharge. Mucous membranes pink and moist. NECK: Trachea midline. No JVD. CARDIOVASCULAR: Regular rate and rhythm. No murmur appreciated. RESPIRATORY: No accessory muscle use. Clear to auscultation. Breath sounds equal bilaterally. GASTROINTESTINAL: Abdomen soft, non-tender, nondistended. Hepatic and splenic margins not palpable. MUSCULOSKELETAL: No obvious deformities. No clubbing. No cyanosis. No edema. NEUROLOGICAL: Awake and alert but confused. No obvious cranial nerve deficits. Motor grossly within normal limits. Normal speech. PSYCHIATRIC: Appropriate mood and affect; insight and judgment normal. Course Initial Documented Vital Signs Temperature 98.3 F 05/02/18 11:41 Pulse Rate 81 05/02/18 11:41 Respiratory Rate 16 05/02/18 11:41 Pulse Oximetry 90 L 05/02/18 11:41 Last Documented Vital Signs Temperature 98.3 F 05/02/18 11:41 Pulse Rate 83 05/02/18 13:09 Respiratory Rate 18 05/02/18 13:09 Blood Pressure 117/53 L 05/02/18 13:09 Pulse Oximetry 100 05/02/18 13:09 Medical Decision Making [facility] Narrative Medical decision making narrative: Patient is a 77-year-old male who presents with confusion and cough. He is hemodynamically stable. CT reveals a mass previously seen. X-ray is concerning for consolidation and pneumonia. He has been admitted to the hospital within the last 3 months and thus he has been started on vancomycin, Zosyn, azithromycin for HCAP. I spoke with Dr. Yusuf, hospitalist air conditioning service technician, who agreed to the admission. Medical Screen Exam Complete: Yes Emergency Medical Condition: Yes Differential Diagnosis Differential Diagnosis: Differential diagnosis includes but is not limited to pneumonia, intracranial hemorrhage, urinary tract infection, dehydration. Medical Records Medical records reviewed: Yes I reviewed the patient's medical records. Lab Data Lab results reviewed: Yes I reviewed the patient's lab results. Result diagrams: 05/02/18 12:10 05/02/18 12:10 Lab Results 05/02/18 05/02/18 05/02/18 Range/Units 12:10 12:10 12:40 WBC 11.5 H (4.0-11.0) th/mm3 RBC 4.84 (4.50-5.90) mil/mm3 Hgb 13.9 (13.0-17.0) gm/dL Hct 42.9 (39.0-51.0) % MCV 88.7 (80.0-100.0) fL MCH 28.7 (27.0-34.0) pg MCHC 32.4 (32.0-36.0) % RDW 17.2 (11.6-17.2) % Plt Count 116 L (150-450) th/mm3 MPV 9.4 (7.0-11.0) fL Neut % (Auto) 84.2 H (16.0-70.0) % Lymph % (Auto) 5.6 L (9.0-44.0) % [place] % (Auto) 9.8 H (0.0-8.0) % Eos % (Auto) 0.2 (0.0-4.0) % Baso % (Auto) 0.2 (0.0-2.0) % Neut # (Auto) 9.7 H (1.8-7.7) th/mm3 Lymph # (Auto) 0.6 L (1.0-4.8) th/mm3 [place] # (Auto) 1.1 H (0.0-0.9) th/mm3 Eos # (Auto) 0.0 (0.0-0.4) th/mm3 Baso # (Auto) 0.0 (0.0-0.2) th/mm3 WBC Differential . Differential Comment Auto diff final Sodium 141 (136-145) meq/L Potassium 4.2 (3.5-5.1) meq/L Chloride 101 (98-107) meq/L Carbon Dioxide 32.4 H (21.0-32.0) meq/L Anion Gap 8 (5-15) meq/L BUN 38 H (7-18) mg/dL Creatinine 1.53 H (0.60-1.30) mg/dL Estimated GFR 44 L (>89) mL/min Random Glucose 263 H (74-106) mg/dL Calcium 8.8 (8.5-10.1) mg/dL Magnesium 1.9 (1.5-2.5) mg/dL Total Bilirubin 1.2 H (0.2-1.0) mg/dL AST 13 L (15-37) U/L ALT 10 L (12-78) U/L Alkaline Phosphatase 136 H (45-117) U/L Ammonia 23 (11-32) mcmol/L Troponin I 0.03 (0.02-0.05) ng/mL Total Protein 7.3 (6.4-8.2) g/dL Albumin 2.9 L (3.4-5.0) g/dL Urine Color (Yellw/Straw) Urine Clarity (Clear) Urine pH (5.0-8.5) Ur Specific [place] (1.002-1.035) Urine Protein (Neg-Trace) mg/dL Urine Glucose (UA) (Negative) mg/dL Urine Ketones (Negative) mg/dL Urine Occult Blood (Negative) Urine Nitrate (Negative) Urine Bilirubin (Negative) Urine Urobilinogen (Less than 2) mg/dL Ur Leukocyte Esterase (Negative) Urine RBC (0-3) /hpf Urine WBC (0-5) /hpf Ur Squamous Epith Cells (0-5) /hpf Urine Bacteria (None) /hpf Hyaline Casts (0-3) /lpf Urine Mucus (Occasional) /lpf Micro UA Comment Ur Microscopic Review Urine Culture Comments 05/02/18 Range/Units 12:43 WBC (4.0-11.0) th/mm3 RBC (4.50-5.90) mil/mm3 Hgb (13.0-17.0) gm/dL Hct (39.0-51.0) % MCV (80.0-100.0) fL MCH (27.0-34.0) pg MCHC (32.0-36.0) % RDW (11.6-17.2) % Plt Count (150-450) th/mm3 MPV (7.0-11.0) fL Neut % (Auto) (16.0-70.0) % Lymph % (Auto) (9.0-44.0) % [place] % (Auto) (0.0-8.0) % Eos % (Auto) (0.0-4.0) % Baso % (Auto) (0.0-2.0) % Neut # (Auto) (1.8-7.7) th/mm3 Lymph # (Auto) (1.0-4.8) th/mm3 [place] # (Auto) (0.0-0.9) th/mm3 Eos # (Auto) (0.0-0.4) th/mm3 Baso # (Auto) (0.0-0.2) th/mm3 WBC Differential Differential Comment Sodium (136-145) meq/L Potassium (3.5-5.1) meq/L Chloride (98-107) meq/L Carbon Dioxide (21.0-32.0) meq/L Anion Gap (5-15) meq/L BUN (7-18) mg/dL Creatinine (0.60-1.30) mg/dL Estimated GFR (>89) mL/min Random Glucose (74-106) mg/dL Calcium (8.5-10.1) mg/dL Magnesium (1.5-2.5) mg/dL Total Bilirubin (0.2-1.0) mg/dL AST (15-37) U/L ALT (12-78) U/L Alkaline Phosphatase (45-117) U/L Ammonia (11-32) mcmol/L Troponin I (0.02-0.05) ng/mL Total Protein (6.4-8.2) g/dL Albumin (3.4-5.0) g/dL Urine Color Yellow (Yellw/Straw) Urine Clarity Hazy H (Clear) Urine pH 5.0 (5.0-8.5) Ur Specific [place] 1.012 (1.002-1.035) Urine Protein 30 H (Neg-Trace) mg/dL Urine Glucose (UA) Negative (Negative) mg/dL Urine Ketones Negative (Negative) mg/dL Urine Occult Blood Negative (Negative) Urine Nitrate Negative (Negative) Urine Bilirubin Negative (Negative) Urine Urobilinogen Less than 2 (Less than 2) mg/dL Ur Leukocyte Esterase Negative (Negative) Urine RBC Less than 1 (0-3) /hpf Urine WBC 1 (0-5) /hpf Ur Squamous Epith Cells 1 (0-5) /hpf Urine Bacteria Rare H (None) /hpf Hyaline Casts 18 (0-3) /lpf Urine Mucus Few H (Occasional) /lpf Micro UA Comment Culture not ind Ur Microscopic Review Not Reportable Urine Culture Comments Culture not ind Imaging Data Attestation: I personally reviewed and interpreted this imaging study as follows : Radiologist's impression: Chest X-Ray 05/02/18 12:08 CONCLUSION: Moderate left pleural effusion with some accompanying atelectasis or consolidation at the left base. Patient status post sternotomy. Head CT 05/02/18 12:08 CONCLUSION: 1. No acute intracranial abnormality. 2. Stable postoperative features of right-sided craniotomy with right frontotemporal encephalomalacia. 3. Stable bilobed extra-axial collection/mass in the right frontal mid to high convexities measuring up to 1.3 cm in the high convexities and 8 mm in the mid convexities. Again, contrast-enhanced MRI exam may help in further characterization as clinically indicated. . Discharge Plan Discharge Disposition Patient Disposition: 30 Still Patient Discharge Condition Condition: Stable Discharge Details Diagnosis: HCAP (healthcare-associated pneumonia) Physicians Team ED Provider: Kaley Stephens Primary Care Provider: Luis Angel Beasley Attending Provider: Austin Yusuf Discharge Interventions Interventions: Vital Signs Last Done: 05/02/18 13:09 Status ED Status: Admitted Observation Patient
--- NOTE | 2018-05-02 13:49 | CT ---
EXAM DATE: 05/02/2018 1:42 PM EST AGE/SEX: 77 years / Male INDICATIONS: Altered mental status. CLINICAL DATA: This is the patient's initial encounter. Patient reports that signs and symptoms have been present for 1 day and indicates a pain score of 0/10. MEDICAL/SURGICAL HISTORY: Cardiovascular disease. Congestive heart failure. Diabetes. CVA,skin c ancer . parathyroidectomy, kidney transplant, brain surgery RADIATION DOSE: 66.34 CTDI (mGy) COMPARISON: [facility] [place], CT HEAD W/O CONTRAST, 03/25/2018. . TECHNIQUE: CT of the head without contrast. Using automated exposure control and adjustment of the mA and/or kV according to patient size, radiation dose was kept as low as reasonably achievable to ob tain optimal diagnostic quality images. DICOM format image data is available electronically for revi ew and comparison. FINDINGS: Cerebrum: Stable postoperative features of right frontal craniotomy with stable encephalomalacia in the right temporal and frontal lobes with associated ex vacuo dilatation of the right lateral ventric le. Stable nearly bilobed appearance of increased heterogeneous density extra-axial right frontal col lections measuring up to 1.3 cm in the right frontal high convexities and 8 mm in the frontal mid con vexities. Moderate diffuse cerebral atrophy. No evidence of midline shift, mass lesion, hemorrhage o r acute infarction. No extraaxial fluid collections are seen. Posterior Fossa: The cerebellum and brainstem are intact. The 4th ventricle is midline. The cerebe llopontine angle is unremarkable. Extracranial: The visualized portion of the orbits is intact. Skull: The calvaria is intact. No evidence of skull fracture. CONCLUSION: 1. No acute intracranial abnormality. 2. Stable postoperative features of right-sided craniotomy with right frontotemporal encephalomalaci a. 3. Stable bilobed extra-axial collection/mass in the right frontal mid to high convexities measuring up to 1.3 cm in the high convexities and 8 mm in the mid convexities. Again, contrast-enhanced MRI e xam may help in further characterization as clinically indicated. . Electronically signed by: Todd Becerra MD 05/02/2018 1:48 PM EST
[2018-05-02] MEDS ORDERED: Acetaminophen 325 MG Tablet PO PRN (14:42)
--- NOTE | 2018-05-02 14:55 | P.HPIM ---
History of Present Illness Primary Care Physician: Luis Angel Beasley MD History of Present Illness: Mr. Olson is a 77-year-old male. He has a past history of dementia, CHF, chronic kidney disease, and diarrhea. He is brought into the emergency department secondary to altered mental status. His reports that he was going to the bathroom and transiently lost consciousness. She says at this point he has returned to his mental status baseline which is compromised secondary to dementia. Etiology could be related to a syncopal episode. However, patient also was discovered to have a consolidation present in the left base suggestive of pneumonia. He also has an elevated white blood cell count. Previous hospitalization last week suggested this may be a healthcare associated pneumonia. No sepsis present. No hypoxia present. No other complaints from this patient today. Regarding a syncopal workup patient has had an echocardiogram on 09-27-17. Ejection fraction on his last echocardiogram is 20-25%. Within the past week he is also had an outpatient surgical excision of skin cancer on his left chest. This wound looks intact and shows no signs of infection. Review of Systems Constitutional: No fevers, no chills no night sweats, no fatigue, no weakness Eyes: No eye pain, no blurry vision, no loss of vision ENT: No sore throat, no ear pain, no rhinorrhea Cardiovascular: No chest pain, no tachycardia, no palpitations, no syncope Respiratory: No wheezing, no cough, no shortness of breath Gastrointestinal: No abdominal pain, no black tarry stools, no bright red blood per rectum, no vomiting, no diarrhea Musculoskeletal: No joint pain, no muscle cramps, no stiffness Integumentary: No rash, no ulcers, no drainage Neurologic: No sensory loss, no loss of motor function, no dizziness Psychiatric: No behavioral changes, no hallucinations, no suicidal ideations, loss of consciousness, transient mental status change [facility] Medical History Medical History Skin cancer (Acute) CAD (coronary artery disease) (Acute) CHF (congestive heart failure) (Acute) CVA (cerebral vascular accident) (Acute) Chronic kidney disease, stage III (moderate) (Acute) Diabetes (Acute) Hemangioma (Acute) SHAUNA (renal osteodystrophy) (Acute) Retinopathy (Acute) Surgical History Surgical History H/O parathyroidectomy (Acute) History of YAG laser capsulotomy of lens (Acute) History of cardiac cath (Acute) Kidney transplanted (Acute) S/P CABG x 5 (Acute) Status post laser cataract surgery of both eyes (Acute) Family History Family History Mother Alzheimer's dementia Hypertension Father Lymphoma Social History Social History Substance History: No History of Abuse Second Hand Smoke Exposure: No Smoking Status: Never smoker How Often Do You Have a Drink Containing Alcohol: Never Hx Recent Travel: No Recent Travel in [place] within the Last 8 Weeks: No Recent Out of Country Travel within the Last 8 Weeks: No Immunization History Tetanus Immunization: Unsure Medications and Allergies Allergies Allergy/AdvReac Type Severity Reaction Status Date / Time aspirin Allergy Severe Bleeding Verified 05/02/18 11:41 diclofenac Allergy Severe bleeding Verified 05/02/18 11:41 etodolac Allergy Severe bleeding Verified 05/02/18 11:41 flurbiprofen Allergy Severe bleeding Verified 05/02/18 11:41 haloperidol Allergy Severe Confusion Verified 05/02/18 11:41 ibuprofen Allergy Severe bleeding Verified 05/02/18 11:41 indomethacin Allergy Severe bleeding Verified 05/02/18 11:41 ketoprofen Allergy Severe bleeding Verified 05/02/18 11:41 ketorolac Allergy Severe bleeding Verified 05/02/18 11:41 naproxen Allergy Severe bleeding Verified 05/02/18 11:41 oxaprozin Allergy Severe bleeding Verified 04/28/18 08:14 oxcarbazepine Allergy Severe Bleeding Verified 04/28/18 08:14 Home Medications Medication Instructions Recorded Confirmed Type bethanechol chloride 25 mg PO BID 03/19/18 05/02/18 History calcitriol 0.5 mcg PO DAILY 03/19/18 05/02/18 History calcium carbonate [Calcium 500] 500 mg PO BID 03/19/18 05/02/18 History finasteride 5 mg PO DAILY 03/19/18 05/02/18 History insulin NPH and regular human 1 sliding scale dose SUBCUT UD 03/19/18 05/02/18 History [Novolin 70/30 U-100 Insulin] isosorbide mononitrate 30 mg PO DAILY 03/19/18 05/02/18 History levetiracetam 500 mg PO BID 03/19/18 05/02/18 History lorazepam [Ativan] 0.5 mg PO DAILY PRN 03/19/18 05/02/18 History melatonin 10 mg PO HS PRN 03/19/18 05/02/18 History metoprolol succinate [Toprol XL] 12.5 mg PO DAILY 03/19/18 05/02/18 History montelukast 10 mg PO QPM 03/19/18 05/02/18 History ondansetron HCl [Zofran] 8 mg PO TID PRN 03/19/18 05/02/18 History spironolactone 25 mg PO DAILY 03/19/18 05/02/18 History Active Medications: Active Medications Acetaminophen (Tylenol) 650 mg PO Q4H PRN PRN Reason: Temp > 100.4 Hydrocodone Bitart/Acetaminophen (Friedens 5/325) 1 tab PO Q6H PRN PRN Reason: Pain Al Hydroxide/Mg Hydroxide (Milk Of Soo Liq) 30 ml PO Q12H PRN PRN Reason: Mild Constipation Bethanechol Chloride (Urecholine) 25 mg PO BID [facility] Calcium Carbonate (Oscal) 500 mg PO BID KIAN Finasteride (Proscar) 5 mg PO DAILY KIAN Heparin Sodium (Porcine) (Heparin Inj) 5,000 units SQ Q12H KIAN Piperacillin/Tazobactam/Dextrose (Zosyn 3.375 Gm Premix) 50 mls @ 100 mls/hr IV.SIG Q8H KIAN Vancomycin HCl 1,000 mg/ (Sodium Chloride) 250 mls @ 250 mls/hr IV.SIG Q12H KIAN Isosorbide Mononitrate (Imdur) 30 mg PO DAILY KIAN Lactobacillus Acidophilus (Lactinex) 1 tab PO TID KIAN Levetiracetam (Keppra) 500 mg PO BID KIAN Metoprolol Succinate (Toprol Xl) 12.5 mg PO DAILY KIAN Montelukast Sodium (Singulair) 10 mg PO QPM KIAN Non-Formulary Medication (Calcitriol [Calcitriol]) 0.5 mcg PO DAILY KIAN Non-Formulary Medication (Melatonin [Melatonin]) 10 mg PO HS PRN PRN Reason: Sleep Ondansetron HCl (Zofran Inj) 4 mg IV.PUSH Q6H PRN PRN Reason: NAUSEA OR VOMITING Potassium Chloride (Kcl) 10 meq PO DAILY KIAN Sodium Chloride (Ns Flush) 2 ml IV.FLUSH PRN PRN PRN Reason: FLUSH AFTER USING IV ACCESS Sodium Chloride (Ns Flush) 2 ml IV.FLUSH PRN PRN PRN Reason: FLUSH AFTER USING IV ACCESS Sodium Chloride (Ns Flush) 2 ml IV.FLUSH BID KIAN Spironolactone (Aldactone) 25 mg PO DAILY KIAN Torsemide (Demadex) 40 mg PO DAILY KIAN Physical Exam Vital signs: Last Vital Signs Temp 98.3 F 05/02/18 11:41 Pulse 83 05/02/18 13:09 Resp 18 05/02/18 13:09 BP 117/53 L 05/02/18 13:09 Pulse Ox 100 05/02/18 13:09 Intake & Output 04/30/18 05/01/18 05/02/18 05/03/18 06:59 06:59 06:59 06:59 Intake Total 155 / 155 Balance 155 / 155 Weight 65.771 kg Results Labs CBC & Chem 7: 05/02/18 12:10 05/02/18 12:10 Imaging Impressions Chest X-Ray 05/02/18 12:08 CONCLUSION: Moderate left pleural effusion with some accompanying atelectasis or consolidation at the left base. Patient status post sternotomy. Head CT 05/02/18 12:08 CONCLUSION: 1. No acute intracranial abnormality. 2. Stable postoperative features of right-sided craniotomy with right frontotemporal encephalomalacia. 3. Stable bilobed extra-axial collection/mass in the right frontal mid to high convexities measuring up to 1.3 cm in the high convexities and 8 mm in the mid convexities. Again, contrast-enhanced MRI exam may help in further characterization as clinically indicated. . Caprini VTE Risk Assessment Caprini VTE Risk Assessment: Moderate/High Risk (score >= 2) Caprini Risk Assessment Model: Point Value = 1 Point Value = 2 Point Value = 3 Point Value = 5 Age 41-60 Minor surgery BMI > 25 kg/m2 Swollen legs Varicose veins or History of unexplained or recurrent spontaneous Oral contraceptives or hormone replacement Sepsis (< 1 month) Serious lung disease, including pneumonia (< 1 month) Abnormal pulmonary function Acute myocardial infarction Congestive heart failure (< 1 month) History of inflammatory bowel disease Medical patient at bed rest Age 61-74 Arthroscopic surgery Major open surgery (> 45 min) Laparoscopic surgery (> 45 min) Malignancy Confined to bed (> 72 hours) Immobilizing plaster cast Central venous access Age >= 75 History of VTE Family history of VTE Factor V Leiden Prothrombin [id number] Lupus anticoagulant Anticardiolipin antibodies Elevated serum homocysteine Heparin-induced thrombocytopenia Other congenital or acquired thrombophilia Stroke (< 1 month) Elective arthroplasty Hip, pelvis, or leg fracture Acute spinal cord injury (< 1 month) Prophylaxis Regimen: Total Risk Factor Score Risk Level Prophylaxis Regimen 0-1 Low Early ambulation 2 Moderate Order ONE of the following: *Sequential Compression Device (SCD) *Heparin 5000 units SQ BID 3-4 Higher Order ONE of the following medications: *Heparin 5000 units SQ TID *Enoxaparin/Lovenox 40 mg SQ daily (WT < 150 kg, CrCl > 30 mL/min) *Enoxaparin/Lovenox 30 mg SQ daily (WT < 150 kg, CrCl > 10-29 mL/min) *Enoxaparin/Lovenox 30 mg SQ BID (WT < 150 kg, CrCl > 30 mL/min) AND/OR *Sequential Compression Device (SCD) 5 or more Highest Order ONE of the following medications: *Heparin 5000 units SQ TID (Preferred with Epidurals) *Enoxaparin/Lovenox 40 mg SQ daily (WT < 150 kg, CrCl > 30 mL/min) *Enoxaparin/Lovenox 30 mg SQ daily (WT < 150 kg, CrCl > 10-29 mL/min) *Enoxaparin/Lovenox 30 mg SQ BID (WT < 150 kg, CrCl > 30 mL/min) AND *Sequential Compression Device (SCD) Assessment and Plan Plan 77-year-old male admitted secondary to syncope and healthcare associated pneumonia Syncope No need for new echocardiogram, given recent echocardiogram Bilateral carotid ultrasound ordered Etiology likely related to pneumonia or his baseline congestive heart failure Follow on telemetry Healthcare associated pneumonia Left lower lobe pneumonia Vancomycin Zosyn Probiotics ID consultation Follow on telemetry Oxygen supplementation as needed Skin cancer Recent skin cancer excision left chest Wound looks healthy and healing Patient will remove stitches as an outpatient next week Follow with surgeon as an outpatient Coronary artery disease Chronic systolic congestive heart failure Baseline ejection fraction is 20-25% No chest pain reported Continue baseline treatments Follow on telemetry Diabetes mellitus type 2 Follow blood sugars Insulin sliding scale Diabetic diet History of hemangioma History of retinopathy No exacerbation of these conditions Follow as an outpatient History of renal osteodystrophy Chronic kidney disease stage III Follow renal function History of CVA Weakness Physical therapy evaluation and treatment ordered DVT prophylaxis Heparin
[2018-05-02] MEDS ORDERED: Vancomycin Consult Pharmacy OTHER PRN (16:00)
--- NOTE | 2018-05-02 16:35 | US ---
EXAM DATE: 05/02/2018 4:29 PM EST AGE/SEX: 77 years / Male INDICATIONS: Syncope. CLINICAL DATA: This is the patient's subsequent encounter. Patient reports that signs and symptoms h ave been present for 1 day and indicates a pain score of 0/10. MEDICAL/SURGICAL HISTORY: . Congestive heart failure. Coronary artery disease. Cerebral vascula r accident. Diabetes. Hemangioma. Renal osteodystrophy. . CABG. Parathyroidectomy. Cardiac catheter. Kidney transplant. COMPARISON: [facility], US ECHOCARDIOGRAM, 09/07/2016. . VELOCITY PARAMETERS: ICA/CCA Ratio: Right 1.7 , Left 1.5 ICA: Right 77.6 cm/sec, Left 80.2 cm/sec CCA: Right 45.3 cm/sec, Left 52.6 cm/sec ECA: Right 80.1 cm/sec, Left 78.9 cm/sec Vertebral: Right 57.0 cm/sec antegrade, Left 51.4 cm/sec antegrade FINDINGS: Right Carotid: Moderate arteriosclerotic plaque is visualized.The waveforms are within normal limits . Left Carotid: Moderate to severe arteriosclerotic plaque is visualized on the grayscale images.. The waveforms are within normal limits. Other: None. CONCLUSION: Moderate to severe plaque seen in the grayscale images of the left carotid bulb/internal carotid maría ry region concerning for a significant stenosis. The peak systolic velocity is not elevated. There is reduced diastolic flow in this region. This area could be further evaluated with a CTA of the neck. Moderate plaque at the right carotid bulb region without significant stenosis identified. Electronically signed by: Mendez Julian MD 05/02/2018 4:33 PM EST
[2018-05-02] MEDS: Montelukast 10 MG Tablet PO SCH (17:50)
[2018-05-02] MEDS: Lactobacillus Acidophilus/L. Spores Tablet PO SCH (17:50)
[2018-05-02] MEDS: Heparin - SQ 10,000 UNITS/ML Vial SQ SCH (17:54)
--- NOTE | 2018-05-02 19:54 | MB ---
cc: Rahul Owen MD DATE: 05/02/2018 HISTORY OF PRESENT ILLNESS: The patient was doing well today. He went to the bathroom and when he tried to get up, he passed out. He did not hurt himself. It took 2-3 minutes for him to wake up. In the meantime, EMS was called and he was brought to the hospital. He had workup done in the hospital. A CT scan of the chest does not show any acute process. Chest x-ray shows left moderate sized pleural effusion with possible underlying atelectasis or lung infiltrate. His WBC count is 11.5, hemoglobin 13.9, hematocrit 42.9, MCV 88, platelet count 116. His sodium 141, potassium 4.2, chloride 101, CO2 32, BUN 38, creatinine 1.53. Currently, he is alert, awake. He is on 2 liter nasal cannula. He has no cough, no sputum production. No chest pain. PAST MEDICAL HISTORY: Significant for history of cardiomyopathy, ejection fraction is 20-35%, congestive heart failure, recurrent pleural effusion, history of skin cancer removed from the anterior chest wall. MEDICATIONS: He is currently takin. Hydrocodone 5/325 mg a day. 2. Urecholine 25 mg twice a day. 3. Calcitriol 0.5 mg a day. 4. Finasteride 5 mg a day. 5. Heparin 5000 units twice a day. 6. Isosorbide 30 mg a day. 7. Keppra 500 mg twice a day. 8. Melatonin 10 mg a day. 9. Metoprolol 12.5 mg a day. 10. Zofran as needed. 11. Singulair 10 mg a day. 12. Zosyn 3.375 grams every 8 hours. 13. Vancomycin IV. 14. Demadex 40 mg a day. ALLERGIES: 1. ASPIRIN. 2. DICLOFENAC. 3. ETODOLAC. 4. HALDOL 5. IBUPROFEN. SOCIAL HISTORY: He is . He has a history of smoking in the past. FAMILY HISTORY: Noncontributory. REVIEW OF SYSTEMS: Normally, he is up around and active. Weight is stable. No DVT. No seizure activity. PHYSICAL EXAMINATION: GENERAL: Elderly male, not in any acute distress, feels a little weak. VITAL SIGNS: Blood pressure 112/56, heart rate 70, respirations 18, temperature 98. HEENT: Pupils are equal and reactive to light. Oral mucosa and nasal mucosa normal. NECK: Supple. JVP not raised. CHEST: He has stitches on the anterior chest wall where he had a skin cancer removed. He has decreased breath sounds at the left base. HEART: S1, S2 normal. ABDOMEN: Benign. EXTREMITIES: No edema. IMPRESSION: 1. Moderate left pleural effusion. He is tolerating it well. He had multiple thoracentesis done in the past. 2. Left basal atelectasis versus infiltrate. He does not have any fever, does not have any sputum production. 3. Congestive heart failure. 4. Cardiomyopathy. 5. Syncopal episode. PLAN: Discussed with the patient and his . He will be treated with antibiotic pending blood cultures. If the cultures comes out negative, then we will deescalate antibiotic. Pleural effusion is stable and he is tolerating it well. Will hold off doing thoracentesis. Supplement his oxygen. Encourage him to use physical therapy. Further treatment pending course in the hospital. Thank you, Dr. Yusuf, for this consult. MD CHAI Soto/john , 05:37 PM , 05:47 PM
[2018-05-02] MEDS ORDERED: Dextrose 50% in Water 50 ML Vial IV.PUSH PRN (20:07)
[2018-05-02] MEDS: levETIRAcetam 500 MG Tablet PO SCH (21:13)
[2018-05-02] MEDS: Calcium Carbonate 500 MG Tablet PO SCH (21:13)
[2018-05-02] MEDS: Insulin NovoLOG Aspart Correctional Sugar Inj SQ SCH (21:13)
[2018-05-02] MEDS: Melatonin 5 MG Tablet PO SCH (21:14)
[2018-05-02] MEDS: Piperacil/Tazo 3.375 GM Premix 50 ML IV.SIG SCH (21:14)
[2018-05-03] MEDS: Insulin NovoLOG Aspart Correctional Sugar Inj SQ SCH ×5 (02:33→21:00)
[2018-05-03] MEDS: Piperacil/Tazo 3.375 GM Premix 50 ML IV.SIG SCH (05:23)
[2018-05-03] MEDS: Heparin - SQ 10,000 UNITS/ML Vial SQ SCH ×2 (05:24→17:52)
[2018-05-03 06:53] LABS: Baso % (Auto) 0.6 % (0.0-2.0); Eos # (Auto) 0.2 th/mm3 (0.0-0.4); Eos % (Auto) 2.5 % (0.0-4.0); Hematocrit 39.6 % (39.0-51.0); Lymph # (Auto) 0.7 th/mm3 (1.0-4.8); Lymph % (Auto) 9.3 % (9.0-44.0); Mean Corpuscular HGB Conc 32.8 % (32.0-36.0); Mean Corpuscular Hemoglobin 28.6 pg (27.0-34.0); Mean Corpuscular Volume 87.3 fL (80.0-100.0); Mean Platelet Volume 9.4 fL (7.0-11.0); Mono # (Auto) 0.9 th/mm3 (0.0-0.9); Mono % (Auto) 12.7 % (0.0-8.0); Neut # (Auto) 5.4 th/mm3 (1.8-7.7); Neut % (Auto) 74.9 % (16.0-70.0); Platelet Count 114 th/mm3 (150-450); Red Blood Count 4.54 mil/mm3 (4.50-5.90); Red Cell Distribution Width 17.3 % (11.6-17.2); White Blood Count 7.2 th/mm3 (4.0-11.0)
[2018-05-03 07:32] LABS: Alanine Aminotransferase 8 U/L (12-78); Albumin 2.6 g/dL (3.4-5.0); Alkaline Phosphatase 111 U/L (45-117); Anion Gap 6 meq/L (5-15); Aspartate Aminotransferase 11 U/L (15-37); Blood Urea Nitrogen 38 mg/dL (7-18); Carbon Dioxide 35.6 meq/L (21.0-32.0); Chloride 102 meq/L (98-107); Glomerular Filtration Rate 48 mL/min (>89); Glucose,Random 156 mg/dL (74-106); Potassium 3.9 meq/L (3.5-5.1); Sodium 144 meq/L (136-145); Total Protein 6.8 g/dL (6.4-8.2)
[2018-05-03] MEDS: Isosorbide Mononitrate 30 MG ER 24HR Tablet (Imdur) PO SCH (08:54)
[2018-05-03] MEDS: levETIRAcetam 500 MG Tablet PO SCH ×2 (08:54→21:00)
[2018-05-03] MEDS: Potassium Chloride 10 MEQ ER Capsule PO SCH (08:54)
[2018-05-03] MEDS: Finasteride 5 MG Tablet PO SCH (08:54)
[2018-05-03] MEDS: Calcitriol 0.25 MCG Capsule PO SCH (08:54)
[2018-05-03] MEDS: Spironolactone 25 MG Tablet PO SCH (08:54)
[2018-05-03] MEDS: Lactobacillus Acidophilus/L. Spores Tablet PO SCH ×3 (08:54→18:11)
[2018-05-03] MEDS: Torsemide 20 MG Tablet PO SCH (08:54)
[2018-05-03] MEDS: Calcium Carbonate 500 MG Tablet PO SCH ×2 (08:54→21:00)
--- NOTE | 2018-05-03 09:23 | P.PNPL ---
Subjective Interval history: Patient is lying in bed in NAD. Afebrile. On 2L oxygen, denies any SOB/CP. Physical Exam Vital signs: Vital Signs 05/02/18 11:41 05/02/18 11:44 05/02/18 12:22 Temperature 98.3 F Pulse Rate 81 81 Respiratory Rate 16 Blood Pressure 117/57 L Pulse Oximetry 90 L 90 L 05/02/18 13:09 05/02/18 15:45 05/02/18 16:00 Temperature 97.6 F Pulse Rate 83 78 75 Respiratory Rate 18 18 18 Blood Pressure 117/53 L 112/56 L 110/58 L Pulse Oximetry 100 98 96 05/02/18 20:00 05/03/18 00:00 05/03/18 04:00 Temperature 97.8 F 97.1 F L 97.6 F Pulse Rate 82 75 82 Respiratory Rate 16 20 20 Blood Pressure 105/53 L 108/53 L 106/56 L Pulse Oximetry 95 99 100 05/03/18 05:48 Temperature Pulse Rate 74 Respiratory Rate Blood Pressure Pulse Oximetry Intake & Output 05/02/18 05/03/18 05/03/18 18:59 06:59 18:59 Intake Total 655 / 655 220 / 220 Output Total 300 / 300 Balance 655 / 655 -80 / -80 Weight 65.771 kg 65.7 kg Intake: IV 655 / 655 100 / 100 Azithromycin Inj 500 MG In NS 250 / 250 Inj 250 ML @ 250 mls/hr IV.SIG ONCE ONE Rx#:[id number] Zosyn 3.375 GM Premix 50 ML @ 50 / 50 100 / 100 100 mls/hr IV.SIG Q8H [facility] Rx#: [id number] Vancomycin Inj 1,000 MG In NS 250 / 250 Inj 250 ML @ 250 mls/hr IV.SIG ONCE ONE Rx#:[id number] Keppra Inj 500 MG In NS Inj 100 105 / 105 ML @ 400 mls/hr IV.SIG ONCE ONE Rx#:[id number] Oral 0 / 0 120 / 120 Output: Urine 300 / 300 Other: # Voids 1 1 # Incontinent Voids 3 Date of Last Bowel Movement 05/02/18 05/02/18 - Constitutional no acute distress, average body habitus - Routine HEENT Exam Head: Present: normocephalic, atraumatic Eye: Present: EOMI, PERRL, normal accommodation, conjunctivae pink ENT: Present: mucous membranes moist - Routine Neck Exam Present: supple, full ROM, trachea midline - Routine Respiratory Exam Present: CTA bilaterally - Routine Cardiovascular Exam Present: RRR, S1, S2 - Routine Abdominal Exam Present: soft, normoactive bowel sounds - Routine Extremities Exam Present: full ROM, pulses intact - Routine Skin Exam Present: intact - Routine Neurological Exam Present: alert, oriented X3, CN II-XII intact - Routine Psychiatric Exam Present: normal affect - Urinary Catheter Management Straight Cath placed during this visit: yes Reason for continuing: Not indwelling catheter Insertion date: 05/02/18 Insertion time: 12:46 Assessment and Plan - Plan 1. Resp Insuff 2. Small to moderate left pleural effusion with atelectasis and consolidation left base. 3. Left basal atelectasis versus infiltrate. 4. CHF 5. Cardiomyopathy- EF 20-25%. 6. s/p Syncopal episode. 7 Mild DEJA PLAN: Continue with oxygen keep sats >92% Bronchodilators-place on DuoNeb and IS Continue Singular 10mg daily Will repeat CXR in 1-2 days if there is increase in left pleural effusion then consider thoracentesis. On Demadex 40mg daily and Aldactone 25mg daily Continue abx (Vanco, Zosyn) deescalate abx if cxs is negative 05/02 BC: Pending. Check sputum cx GI/DVT prophylaxis Continue treatment plan. Discussed with patient and his .
--- NOTE | 2018-05-03 11:36 | P.PNIM ---
Subjective Interval history: Follow-up for syncope, community-acquired pneumonia, CHF, CAD, skin cancers status post excision on left chest. Patient seen and examined laying in bed, family/ at bedside. Patient seen and examined laying in bed, denies any chest pain or shortness of breath, denies any fever or chills, denies any discomfort. Family addressed concern on patient status. Answers questions and discussed lab results. Nurse reported no acute issues overnight Physical Exam Vital signs: Vital Signs 05/02/18 11:41 05/02/18 11:44 05/02/18 12:22 Temperature 98.3 F Pulse Rate 81 81 Respiratory Rate 16 Blood Pressure 117/57 L Pulse Oximetry 90 L 90 L 05/02/18 13:09 05/02/18 15:45 05/02/18 16:00 Temperature 97.6 F Pulse Rate 83 78 75 Respiratory Rate 18 18 18 Blood Pressure 117/53 L 112/56 L 110/58 L Pulse Oximetry 100 98 96 05/02/18 20:00 05/03/18 00:00 05/03/18 04:00 Temperature 97.8 F 97.1 F L 97.6 F Pulse Rate 82 75 82 Respiratory Rate 16 20 20 Blood Pressure 105/53 L 108/53 L 106/56 L Pulse Oximetry 95 99 100 05/03/18 05:48 05/03/18 08:00 05/03/18 10:46 Temperature 97.3 F L Pulse Rate 74 83 Respiratory Rate 18 Blood Pressure 106/55 L Pulse Oximetry 100 100 Intake & Output 05/02/18 05/03/18 05/03/18 18:59 06:59 18:59 Intake Total 655 / 655 220 / 220 Output Total 300 / 300 Balance 655 / 655 -80 / -80 Weight 65.771 kg 65.7 kg Intake: IV 655 / 655 100 / 100 Azithromycin Inj 500 MG In NS 250 / 250 Inj 250 ML @ 250 mls/hr IV.SIG ONCE ONE Rx#:[id number] Zosyn 3.375 GM Premix 50 ML @ 50 / 50 100 / 100 100 mls/hr IV.SIG Q8H KIAN Rx#: [id number] Vancomycin Inj 1,000 MG In NS 250 / 250 Inj 250 ML @ 250 mls/hr IV.SIG ONCE ONE Rx#:[id number] Keppra Inj 500 MG In NS Inj 100 105 / 105 ML @ 400 mls/hr IV.SIG ONCE ONE Rx#:[id number] Oral 0 / 0 120 / 120 Output: Urine 300 / 300 Other: # Voids 1 1 # Incontinent Voids 3 Date of Last Bowel Movement 05/02/18 05/02/18 Narrative: GENERAL: Well-developed, well-nourished, elderly male laying in bed in no acute distress SKIN: Warm and dry. Left great toe and left third toe with tiny dot anterior lesion less than 1 mm, right fifth toe nails black HEAD: Atraumatic. Normocephalic. EYES: Pupils equal and round. No scleral icterus. No injection or drainage. ENT: No nasal bleeding or discharge. Mucous membranes pink and moist. NECK: Trachea midline. No JVD. CARDIOVASCULAR: Regular rate and rhythm. RESPIRATORY: No accessory muscle use. Clear to auscultation. Breath sounds equal bilaterally. GASTROINTESTINAL: Abdomen soft, non-tender, nondistended. Hepatic and splenic margins not palpable. MUSCULOSKELETAL: Extremities without clubbing, cyanosis, or edema. No obvious deformities. NEUROLOGICAL: Awake and alert. No obvious cranial nerve deficits. Motor grossly within normal limits. Generalized weakness moving all 4 extremities normal speech. PSYCHIATRIC: Appropriate mood and affect; insight and judgment normal. - Urinary Catheter Management Straight Cath placed during this visit: yes Reason for continuing: Not indwelling catheter Insertion date: 05/02/18 Insertion time: 12:46 Results - Labs CBC & Chem 7: 05/03/18 04:21 05/03/18 04:21 Laboratory Results - last 24 hr 05/02/18 05/02/18 05/02/18 12:10 12:10 12:10 WBC 11.5 H RBC 4.84 Hgb 13.9 Hct 42.9 MCV 88.7 MCH 28.7 MCHC 32.4 RDW 17.2 Plt Count 116 L MPV 9.4 Neut % (Auto) 84.2 H Lymph % (Auto) 5.6 L [place] % (Auto) 9.8 H Eos % (Auto) 0.2 Baso % (Auto) 0.2 Neut # (Auto) 9.7 H Lymph # (Auto) 0.6 L Norman # (Auto) 1.1 H Eos # (Auto) 0.0 Baso # (Auto) 0.0 WBC Differential . Differential Comment Auto diff final Sodium 141 Potassium 4.2 Chloride 101 Carbon Dioxide 32.4 H Anion Gap 8 BUN 38 H Creatinine 1.53 H Estimated GFR 44 L POC Glucose Random Glucose 263 H Calcium 8.8 Magnesium 1.9 Total Bilirubin 1.2 H AST 13 L ALT 10 L Alkaline Phosphatase 136 H Ammonia Troponin I 0.03 Total Protein 7.3 Albumin 2.9 L Urine Color Urine Clarity Urine pH Ur Specific [place] Urine Protein Urine Glucose (UA) Urine Ketones Urine Occult Blood Urine Nitrate Urine Bilirubin Urine Urobilinogen Ur Leukocyte Esterase Urine RBC Urine WBC Ur Squamous Epith Cells Urine Bacteria Hyaline Casts Urine Mucus Micro UA Comment Ur Microscopic Review Urine Culture Comments Random Vancomycin Less than 0.8 05/02/18 05/02/18 05/02/18 12:40 12:43 19:30 WBC RBC Hgb Hct MCV MCH MCHC RDW Plt Count MPV Neut % (Auto) Lymph % (Auto) [place] % (Auto) Eos % (Auto) Baso % (Auto) Neut # (Auto) Lymph # (Auto) [place] # (Auto) Eos # (Auto) Baso # (Auto) WBC Differential Differential Comment Sodium Potassium Chloride Carbon Dioxide Anion Gap BUN Creatinine Estimated GFR POC Glucose 237 H Random Glucose Calcium Magnesium Total Bilirubin AST ALT Alkaline Phosphatase Ammonia 23 Troponin I Total Protein Albumin Urine Color Yellow Urine Clarity Hazy H Urine pH 5.0 Ur Specific [place] 1.012 Urine Protein 30 H Urine Glucose (UA) Negative Urine Ketones Negative Urine Occult Blood Negative Urine Nitrate Negative Urine Bilirubin Negative Urine Urobilinogen Less than 2 Ur Leukocyte Esterase Negative Urine RBC Less than 1 Urine WBC 1 Ur Squamous Epith Cells 1 Urine Bacteria Rare H Hyaline Casts 18 Urine Mucus Few H Micro UA Comment Culture not ind Ur Microscopic Review Not Reportable Urine Culture Comments Culture not ind Random Vancomycin 05/03/18 05/03/18 05/03/18 02:19 04:21 04:21 WBC 7.2 RBC 4.54 Hgb 13.0 Hct 39.6 MCV 87.3 MCH 28.6 MCHC 32.8 RDW 17.3 H Plt Count 114 L MPV 9.4 Neut % (Auto) 74.9 H Lymph % (Auto) 9.3 Norman % (Auto) 12.7 H Eos % (Auto) 2.5 Baso % (Auto) 0.6 Neut # (Auto) 5.4 Lymph # (Auto) 0.7 L [place] # (Auto) 0.9 Eos # (Auto) 0.2 Baso # (Auto) 0.0 WBC Differential . Differential Comment Auto diff final Sodium 144 Potassium 3.9 Chloride 102 Carbon Dioxide 35.6 H Anion Gap 6 BUN 38 H Creatinine 1.44 H Estimated GFR 48 L POC Glucose 222 H Random Glucose 156 H D Calcium 9.0 Magnesium Total Bilirubin 1.2 H AST 11 L ALT 8 L Alkaline Phosphatase 111 Ammonia Troponin I Total Protein 6.8 Albumin 2.6 L Urine Color Urine Clarity Urine pH Ur Specific [place] Urine Protein Urine Glucose (UA) Urine Ketones Urine Occult Blood Urine Nitrate Urine Bilirubin Urine Urobilinogen Ur Leukocyte Esterase Urine RBC Urine WBC Ur Squamous Epith Cells Urine Bacteria Hyaline Casts Urine Mucus Micro UA Comment Ur Microscopic Review Urine Culture Comments Random Vancomycin 05/03/18 07:52 WBC RBC Hgb Hct MCV MCH MCHC RDW Plt Count MPV Neut % (Auto) Lymph % (Auto) [place] % (Auto) Eos % (Auto) Baso % (Auto) Neut # (Auto) Lymph # (Auto) [place] # (Auto) Eos # (Auto) Baso # (Auto) WBC Differential Differential Comment Sodium Potassium Chloride Carbon Dioxide Anion Gap BUN Creatinine Estimated GFR POC Glucose 230 H Random Glucose Calcium Magnesium Total Bilirubin AST ALT Alkaline Phosphatase Ammonia Troponin I Total Protein Albumin Urine Color Urine Clarity Urine pH Ur Specific [place] Urine Protein Urine Glucose (UA) Urine Ketones Urine Occult Blood Urine Nitrate Urine Bilirubin Urine Urobilinogen Ur Leukocyte Esterase Urine RBC Urine WBC Ur Squamous Epith Cells Urine Bacteria Hyaline Casts Urine Mucus Micro UA Comment Ur Microscopic Review Urine Culture Comments Random Vancomycin - Imaging Impressions Carotid Doppler Study 05/02/18 00:00 CONCLUSION: Moderate to severe plaque seen in the grayscale images of the left carotid bulb/ internal carotid artery region concerning for a significant stenosis. The peak systolic velocity is not elevated. There is reduced diastolic flow in this region. This area could be further evaluated with a CTA of the neck. Moderate plaque at the right carotid bulb region without significant stenosis identified. Chest X-Ray 05/02/18 12:08 CONCLUSION: Moderate left pleural effusion with some accompanying atelectasis or consolidation at the left base. Patient status post sternotomy. Head CT 05/02/18 12:08 CONCLUSION: 1. No acute intracranial abnormality. 2. Stable postoperative features of right-sided craniotomy with right frontotemporal encephalomalacia. 3. Stable bilobed extra-axial collection/mass in the right frontal mid to high convexities measuring up to 1.3 cm in the high convexities and 8 mm in the mid convexities. Again, contrast-enhanced MRI exam may help in further characterization as clinically indicated. . Assessment and Plan - Assessment (1) Syncope Code(s): R55 - Syncope and collapse Status: Acute (2) Acute exacerbation of CHF (congestive heart failure) Code(s): I50.9 - Heart failure, unspecified Status: Acute (3) Skin lesion Code(s): L98.9 - Disorder of the skin and subcutaneous tissue, unspecified Status: Chronic (4) Dementia Code(s): F03.90 - Unspecified dementia without behavioral disturbance Status: Chronic (5) CKD (chronic kidney disease) stage 3, GFR 30-59 ml/min Code(s): N18.3 - Chronic kidney disease, stage 3 (moderate) Status: Chronic (6) Cardiomyopathy Code(s): I42.9 - Cardiomyopathy, unspecified Status: Chronic (7) Atrial fibrillation Code(s): I48.91 - Unspecified atrial fibrillation Status: Chronic (8) CAD (coronary artery disease) Code(s): I25.10 - Atherosclerotic heart disease of [place] coronary artery without angina pectoris Status: Acute (9) Diabetes mellitus Code(s): E11.9 - Type 2 diabetes mellitus without complications Status: Acute (10) Sepsis Code(s): A41.9 - Sepsis, unspecified organism Status: Acute (11) HCAP (healthcare-associated pneumonia) Code(s): J18.9 - Pneumonia, unspecified organism Status: Acute - Plan 77-year-old male admitted secondary to syncope and healthcare associated pneumonia Syncope Etiology likely related to pneumonia or his baseline congestive heart failure -Recent Echocardiogram 09/27/17: severely reduced EF 20-25% - Bilateral carotid ultrasound: Moderate to severe plaque seen in the grayscale images of the left carotid bulb/internal carotid artery region concerning for a significant stenosis. The peak systolic velocity is not elevated. There is reduced diastolic flow in this region. This area could be further evaluated with a CTA of the neck. Moderate plaque at the right carotid bulb region without significant stenosis identified. -Follow on telemetry -order CTA of the neck per Carotid U/S results Community Acquired pneumonia Left lower lobe pneumonia -d/c IV antibiotic vancomycin and Zosyn -d/c ID consultation -start on Levaquin 750 mg po -Follow on telemetry -Oxygen supplementation as needed Skin cancer -Recent skin cancer excision left chest -Wound looks healthy and healing - stitches to be removed as an outpatient next week -Follow with surgeon as an outpatient Coronary artery disease Chronic systolic congestive heart failure -Baseline ejection fraction is 20-25% -No chest pain or shortness of breath reported -Continue isosorbide, metoprolol, Spironolactone and torsemide -Follow on telemetry Diabetes mellitus type 2 -Blood glucose fair control -follow blood sugars -Continue insulin sliding scale -Diabetic diet History of hemangioma History of retinopathy -No exacerbation of these conditions -Follow as an outpatient History of renal osteodystrophy Chronic kidney disease stage III -Follow renal function History of CVA -Weakness -Physical therapy evaluation and treatment ordered DVT prophylaxis: Heparin Code Status: full code Discussed Condition With: patient, family/, nurse Dr. Herrmann and ID Dr Carter (2) Acute exacerbation of CHF (congestive heart failure) Qualifiers: Heart failure type: unspecified Qualified Code(s): I50.9 - Heart failure, unspecified (4) Dementia Qualifiers: Dementia type: unspecified type Dementia behavioral disturbance: with behavioral disturbance Qualified Code(s): F03.91 - Unspecified dementia with behavioral disturbance (6) Cardiomyopathy Qualifiers: Cardiomyopathy type: other Qualified Code(s): I42.8 - Other cardiomyopathies (7) Atrial fibrillation Qualifiers: Atrial fibrillation type: chronic Qualified Code(s): I48.2 - Chronic atrial fibrillation (9) Diabetes mellitus Qualifiers: Diabetes mellitus type: type 2 Diabetes mellitus detention insulin use: without syrup mixer assistant use Diabetes mellitus complication status: with circulatory complication Diabetes mellitus complication detail: with other circulatory complications Qualified Code(s): E11.59 - Type 2 diabetes mellitus with other circulatory complications
--- NOTE | 2018-05-03 12:48 | ECG ---
Date Performed: 05/02/2018 Time Performed: 12:08:29 PTAGE: 77 years EKG: ATRIAL FIBRILLATION MARKED LEFT AXIS DEVIATION INTRAVENTRICULAR CONDUCTION DELAY POSSIBLE A NTERIOR MYOCARDIAL INFARCTION ABNORMAL ECG Since the PREVIOUS TRACING , no significant change noted PREVIOUS TRACIN03/25/2018 16.22 DOCTOR: Kevin Lowe Interpretating Date/Time 05/03/2018 12:47:19
[2018-05-03] MEDS ORDERED: Vancomycin Inj 1,000 MG in Sodium Chlor 0.9% Inj 250 ML IV.SIG SCH (14:00)
[2018-05-03] MEDS: Montelukast 10 MG Tablet PO SCH (18:12)
[2018-05-03] MEDS: Melatonin 5 MG Tablet PO SCH (21:00)
[2018-05-04] MEDS: Insulin NovoLOG Aspart Correctional Sugar Inj SQ SCH ×2 (03:27→09:07)
[2018-05-04] MEDS: Heparin - SQ 10,000 UNITS/ML Vial SQ SCH (04:07)
[2018-05-04] MEDS ORDERED: levoFLOXacin 750 MG Tablet PO SCH (09:00)
[2018-05-04] MEDS: Finasteride 5 MG Tablet PO SCH (09:07)
[2018-05-04] MEDS: Calcium Carbonate 500 MG Tablet PO SCH (09:07)
[2018-05-04] MEDS: Calcitriol 0.25 MCG Capsule PO SCH (09:07)
[2018-05-04] MEDS: Torsemide 20 MG Tablet PO SCH (09:07)
[2018-05-04] MEDS: levETIRAcetam 500 MG Tablet PO SCH (09:08)
[2018-05-04] MEDS: Lactobacillus Acidophilus/L. Spores Tablet PO SCH (09:08)
[2018-05-04] MEDS: Potassium Chloride 10 MEQ ER Capsule PO SCH (09:08)
[2018-05-04] MEDS: Spironolactone 25 MG Tablet PO SCH (09:08)
[2018-05-04] MEDS: Isosorbide Mononitrate 30 MG ER 24HR Tablet (Imdur) PO SCH (09:08)
--- NOTE | 2018-05-04 09:13 | P.PNPL ---
Subjective Interval history: Patient is siting in chair in NAD. On room air oxygen. Afebrile. Physical Exam Vital signs: Vital Signs 05/03/18 10:46 05/03/18 12:00 05/03/18 12:11 Temperature 97.4 F L Pulse Rate 77 78 Respiratory Rate 18 12 Blood Pressure 98/56 L Pulse Oximetry 100 94 L 05/03/18 15:00 05/03/18 16:00 05/03/18 20:00 Temperature 97.8 F 97.2 F L Pulse Rate 76 64 76 Respiratory Rate 14 18 17 Blood Pressure 93/52 L 90/52 L Pulse Oximetry 91 L 95 05/03/18 20:19 05/03/18 20:21 05/03/18 23:53 Temperature Pulse Rate 78 71 Respiratory Rate 16 Blood Pressure Pulse Oximetry 96 05/04/18 00:00 05/04/18 00:04 05/04/18 03:46 Temperature 97.4 F L Pulse Rate 80 82 87 Respiratory Rate 17 15 17 Blood Pressure 110/53 L Pulse Oximetry 93 L 05/04/18 04:00 05/04/18 07:00 05/04/18 08:00 Temperature 97.4 F L 97.7 F Pulse Rate 92 H 112 H 85 Respiratory Rate 17 14 16 Blood Pressure 104/59 L 102/61 Pulse Oximetry 92 L 96 Intake & Output 05/03/18 05/04/18 05/04/18 18:59 06:59 18:59 Intake Total 480 / 480 0 / 0 Output Total 600 / 600 Balance -120 / -120 0 / 0 Intake: Oral 480 / 480 0 / 0 Output: Urine 600 / 600 Other: # Voids 1 # Urine Diapers 1 # Bowel Movements 0 0 - Constitutional no acute distress - Routine HEENT Exam Head: Present: normocephalic, atraumatic Eye: Present: EOMI, PERRL, normal accommodation, conjunctivae pink ENT: Present: mucous membranes moist - Routine Neck Exam Present: supple, full ROM, trachea midline - Routine Respiratory Exam Present: CTA bilaterally - Routine Cardiovascular Exam Present: RRR, S1, S2 - Routine Abdominal Exam Present: soft, normoactive bowel sounds - Routine Extremities Exam Present: pulses intact - Routine Skin Exam Present: intact, dry - Routine Neurological Exam Present: alert - Urinary Catheter Management Straight Cath placed during this visit: yes Reason for continuing: Not indwelling catheter Insertion date: 05/02/18 Insertion time: 12:46 Assessment and Plan - Plan 1. Resp Insuff 2. Small left pleural effusion with atelectasis and consolidation left base. 3. Left basal atelectasis versus infiltrate. 4. CHF 5. Cardiomyopathy- EF 20-25%. 6. s/p Syncopal episode. 7 Mild DEJA PLAN: Patient is on room air oxygen and looks comfortable Bronchodilators-DuoNeb and IS Continue Singular 10mg daily On Demadex 40mg daily and Aldactone 25mg daily On PO Levaquin. 05/02 BC: NGTD follow up with Dr. Owen in 1 week with repeat CXR GI/DVT prophylaxis .
--- NOTE | 2018-05-04 09:30 | P.DCO ---
- Diagnosis (1) Community acquired pneumonia Status: Acute (2) Acute exacerbation of CHF (congestive heart failure) Status: Acute (3) Dementia Status: Chronic (4) CKD (chronic kidney disease) stage 3, GFR 30-59 ml/min Status: Chronic (5) Cardiomyopathy Status: Chronic (6) Syncope Status: Acute - Physical Therapy Order: Evaluate and treat - Home Health Nursing Order: Medical education, Signs/symptoms of disease process, CHF education, Medication education-adverse effect, Nursing assessment with vital signs - Case Management Consult Case Management Consult-Home Health: Yes - Certification I have seen patient Joselito Olson on 05/04/18. My clinical findings support the need for the requested home health care services because: Limited mobility due to disease progression, Patient has SOB, Deconditioned with increased weakness, Limited ability to care for self I certify that my clinical findings support that this patient is homebound because: Impaired cognitive ability/safety, Unsafe to leave home unassisted, Poor cardiac reserve (2) Acute exacerbation of CHF (congestive heart failure) Qualifiers: Heart failure type: unspecified Qualified Code(s): I50.9 - Heart failure, unspecified (3) Dementia Qualifiers: Dementia type: unspecified type Dementia behavioral disturbance: with behavioral disturbance Qualified Code(s): F03.91 - Unspecified dementia with behavioral disturbance (5) Cardiomyopathy Qualifiers: Cardiomyopathy type: other Qualified Code(s): I42.8 - Other cardiomyopathies
--- NOTE | 2018-05-04 09:40 | P.DS ---
Date of admission: 05/02/18 16:05 Primary care physician: Luis Angel Beasley MD Attending physician on discharge: Niki Herrmann Anticipated date of discharge: 05/04/18 Brief History from admission: Mr. Olson is a 77-year-old male. He has a past history of dementia, CHF, chronic kidney disease, and diarrhea. He is brought into the emergency department secondary to altered mental status. His reports that he was going to the bathroom and transiently lost consciousness. She says at this point he has returned to his mental status baseline which is compromised secondary to dementia. Etiology could be related to a syncopal episode. However, patient also was discovered to have a consolidation present in the left base suggestive of pneumonia. He also has an elevated white blood cell count. Previous hospitalization last week suggested this may be a healthcare associated pneumonia. No sepsis present. No hypoxia present. No other complaints from this patient today. Regarding a syncopal workup patient has had an echocardiogram on 09-27-17. Ejection fraction on his last echocardiogram is 20-25%. Within the past week he is also had an outpatient surgical excision of skin cancer on his left chest. This wound looks intact and shows no signs of infection. Patient update on day of discharge: Follow-up and discharge planning for syncope, community-acquired pneumonia, CHF , CAD, skin cancers status post excision on left chest. Patient seen and examined sitting in the reclining chair, family in room. Discussed discharge planning. Family stated patient is ready to go home with 24 -hour care at home and home health care. Discussed follow-up with auditor appraiser , PCP and metal rolling mill operator. Family/ states that she is the fact primary caregiver with her daughter and son. Stated have scheduled appointments with specialist. Patient complains of some shortness of breath with exertion. Denies any abdominal movement, denies any wheezing or coughing. Patient denies any fever or chills. Patient denies any headache or dizziness, denies any chest pain, abdominal pain, nausea, vomiting, diarrhea or constipation. Discussed discharge planning with nurse and catalytic case operator DS: Diagnosis - Discharge Diagnosis (1) Community acquired pneumonia Status: Acute (2) Acute exacerbation of CHF (congestive heart failure) Status: Acute (3) Dementia Status: Chronic (4) CKD (chronic kidney disease) stage 3, GFR 30-59 ml/min Status: Chronic (5) Cardiomyopathy Status: Chronic (6) Syncope Status: Acute (7) Skin lesion Status: Chronic (8) Atrial fibrillation Status: Chronic (9) CAD (coronary artery disease) Status: Acute (10) Diabetes mellitus Status: Acute (11) Sepsis Status: Acute (12) HCAP (healthcare-associated pneumonia) Status: Acute DS: Medications - Discharge Medications Prescriptions: ipratropium-albuterol 1 amp NEB Q4HR NEB 30 Days #180 ml levofloxacin 750 mg PO DAILY 5 Days #5 tab DS: Summary Hospital Course: This is a 77-year-old male admitted secondary to syncope and community acquired pneumonia. Patient had a workup with Syncope, Etiology likely related to pneumonia or his baseline congestive heart failure. Recent Echocardiogram : severely reduced EF 20-25%. Bilateral carotid ultrasound: Moderate to severe plaque seen in the grayscale images of the left carotid bulb/internal carotid artery region concerning for a significant stenosis. The peak systolic velocity is not elevated. There is reduced diastolic flow in this region. This area could be further evaluated with a CTA of the neck. Moderate plaque at the right carotid bulb region without significant stenosis identified. order CTA of the neck per Carotid U/S results, however family refused to have CTA done due to patient's poor kidney function. Discussed risks and benefits, possible stroke if he was not treated. Family also discussed patient cannot take any anticoagulation not even aspirin due to risk of GI bleed. Patient is aware of risk of not being on any anticoagulation and the risk for bleeding if the patient is on anticoagulation. Patient's vital signs stable and no syncopal episode while in the hospital, will continue antibiotic treatment for another 5 days patient has to follow-up with a PCP, auditor appraiser and metal rolling mill operator as an outpatient. Discussed with family. - Time Spent with Patient Total time spent providing and/or coordinating discharge services: Greater than 30 minutes - Quality: VTE Deep Vein Thrombosis/Pulmonary Embolism Present on Admission: No Exam Vital signs: Vital Signs 05/03/18 10:46 05/03/18 12:00 05/03/18 12:11 Temperature 97.4 F L Pulse Rate 77 78 Respiratory Rate 18 12 Blood Pressure 98/56 L Pulse Oximetry 100 94 L 05/03/18 15:00 05/03/18 16:00 05/03/18 20:00 Temperature 97.8 F 97.2 F L Pulse Rate 76 64 76 Respiratory Rate 14 18 17 Blood Pressure 93/52 L 90/52 L Pulse Oximetry 91 L 95 05/03/18 20:19 05/03/18 20:21 05/03/18 23:53 Temperature Pulse Rate 78 71 Respiratory Rate 16 Blood Pressure Pulse Oximetry 96 05/04/18 00:00 05/04/18 00:04 05/04/18 03:46 Temperature 97.4 F L Pulse Rate 80 82 87 Respiratory Rate 17 15 17 Blood Pressure 110/53 L Pulse Oximetry 93 L 05/04/18 04:00 05/04/18 07:00 05/04/18 08:00 Temperature 97.4 F L 97.7 F Pulse Rate 92 H 112 H 85 Respiratory Rate 17 14 16 Blood Pressure 104/59 L 102/61 Pulse Oximetry 92 L 96 Intake & Output 05/03/18 05/04/18 05/04/18 18:59 06:59 18:59 Intake Total 480 / 480 0 / 0 Output Total 600 / 600 Balance -120 / -120 0 / 0 Intake: Oral 480 / 480 0 / 0 Output: Urine 600 / 600 Other: # Voids 1 # Urine Diapers 1 # Bowel Movements 0 0 Narrative: GENERAL: Well-developed, well-nourished, elderly male laying in bed in no acute distress SKIN: Warm and dry. Left great toe and left third toe with tiny dot anterior lesion less than 1 mm, right fifth toe nails black HEAD: Atraumatic. Normocephalic. EYES: Pupils equal and round. No scleral icterus. No injection or drainage. ENT: No nasal bleeding or discharge. Mucous membranes pink and moist. NECK: Trachea midline. No JVD. CARDIOVASCULAR: Regular rate and rhythm. RESPIRATORY: No accessory muscle use. Clear and diminished to auscultation. Breath sounds equal bilaterally. GASTROINTESTINAL: Abdomen flat soft, non-tender, nondistended. Hepatic and splenic margins not palpable. MUSCULOSKELETAL: Extremities without clubbing, cyanosis, or edema. No obvious deformities. NEUROLOGICAL: Awake and alert. No obvious cranial nerve deficits. Motor grossly within normal limits. Generalized weakness moving all 4 extremities normal speech. PSYCHIATRIC: Appropriate mood and affect; insight and judgment normal. Results Procedures completed during hospitalization: N/A Labs on day of discharge: Labs from last 24 hours 12/02/18 12/02/18 12/01/18 07:38 03:24 20:58 POC Glucose 248 H 124 H 195 H 05/03/18 05/03/18 17:43 11:44 POC Glucose 309 H 254 H Preliminary micro results at discharge 05/02/18 13:40 Aerobic Blood Culture - Preliminary Blood - Peripheral No growth in 1 day Anaerobic Blood Culture - Preliminary No growth in 1 day 05/02/18 13:30 Aerobic Blood Culture - Preliminary Blood - Peripheral No growth in 1 day Anaerobic Blood Culture - Preliminary No growth in 1 day - Impressions ITS Impressions Carotid Doppler Study 05/02/18 00:00 CONCLUSION: Moderate to severe plaque seen in the grayscale images of the left carotid bulb/ internal carotid artery region concerning for a significant stenosis. The peak systolic velocity is not elevated. There is reduced diastolic flow in this region. This area could be further evaluated with a CTA of the neck. Moderate plaque at the right carotid bulb region without significant stenosis identified. Chest X-Ray 05/02/18 12:08 CONCLUSION: Moderate left pleural effusion with some accompanying atelectasis or consolidation at the left base. Patient status post sternotomy. Head CT 05/02/18 12:08 CONCLUSION: 1. No acute intracranial abnormality. 2. Stable postoperative features of right-sided craniotomy with right frontotemporal encephalomalacia. 3. Stable bilobed extra-axial collection/mass in the right frontal mid to high convexities measuring up to 1.3 cm in the high convexities and 8 mm in the mid convexities. Again, contrast-enhanced MRI exam may help in further characterization as clinically indicated. . - Imaging and Cardiology carotid doppler Status: image reviewed by me (ct) Discharge Plan - Discharge Disposition Patient Disposition: W/Home Health Service - Discharge Condition Condition: Stable - Physicians Team Primary Care Provider: Luis Angel Beasley Attending Provider: Niki Herrmann Other Providers: Rahul Owen MD
[2018-05-05] MEDS ORDERED: Pharmacy Ordered Lab Info OTHER ONE (13:45)
== END 2018-05-04 12:00 | disposition home health service (06) ==
LOC: NEPE 11:34 → NEDA 11:34 → N04 16:49
PROVIDERS: ADMIT Hospitalist; ATTEND Hospitalist

== ENCOUNTER 2018-07-21 14:02 | Inpatient (IN) ==
[2018-07-21] MEDS ORDERED: Sod Chloride 0.9% Inj 1,000 ML IV.SIG SCH (14:30)
--- NOTE | 2018-07-21 14:42 | ED ---
HPI General Chief Complaint: Altered Mental Status Stated Complaint: Poss AMS Time Seen by Provider: 07/21/18 14:21 Source: family Limitations: altered mental status History of Present Illness MD complaint: Reports decreased responsiveness Onset (ago): hour(s) (2) Timing confirmed by: family member Severity: moderate Consistency of symptoms: getting worse Context: Reports other (Currently being treated for urinary tract infection) Associated symptoms: Reports denies other symptoms Related Data Home Medications Medication Instructions Recorded Confirmed bethanechol chloride 25 mg PO BID 03/19/18 07/21/18 calcitriol 0.5 mcg PO DAILY 03/19/18 07/21/18 finasteride 5 mg PO DAILY 03/19/18 07/21/18 insulin NPH and regular human 1 sliding scale dose SUBCUT UD 03/19/18 07/21/18 [Novolin 70/30 U-100 Insulin] isosorbide mononitrate 30 mg PO DAILY 03/19/18 07/21/18 levetiracetam 500 mg PO BID 03/19/18 07/21/18 lorazepam [Ativan] 0.5 mg PO DAILY PRN 03/19/18 07/21/18 melatonin 10 mg PO HS PRN 03/19/18 07/21/18 metoprolol succinate [Toprol XL] 12.5 mg PO DAILY 03/19/18 07/21/18 montelukast 10 mg PO QPM 03/19/18 07/21/18 ondansetron HCl [Zofran] 8 mg PO TID PRN 03/19/18 07/21/18 spironolactone 25 mg PO DAILY 03/19/18 07/21/18 torsemide 40 mg PO BID 07/21/18 07/21/18 Allergies Allergy/AdvReac Type Severity Reaction Status Date / Time aspirin Allergy Severe Bleeding Verified 07/04/18 10:43 diclofenac Allergy Severe bleeding Verified 07/04/18 10:43 etodolac Allergy Severe bleeding Verified 07/04/18 10:43 flurbiprofen Allergy Severe bleeding Verified 07/04/18 10:43 haloperidol Allergy Severe Confusion Verified 07/04/18 10:43 ibuprofen Allergy Severe bleeding Verified 07/04/18 10:43 indomethacin Allergy Severe bleeding Verified 07/04/18 10:43 ketoprofen Allergy Severe bleeding Verified 07/04/18 10:43 ketorolac Allergy Severe bleeding Verified 07/04/18 10:43 naproxen Allergy Severe bleeding Verified 07/04/18 10:43 oxaprozin Allergy Severe bleeding Verified 07/04/18 10:43 oxcarbazepine Allergy Severe Bleeding Verified 07/04/18 10:43 Review of Systems ROS Unobtainable ROS Unobtainable: unobtainable due to mental status PMFSH Medical History Medical History CAD (coronary artery disease) (Acute) CHF (congestive heart failure) (Acute) CVA (cerebral vascular accident) (Acute) Chronic kidney disease, stage III (moderate) (Acute) Diabetes (Acute) Hemangioma (Acute) SHAUNA (renal osteodystrophy) (Acute) Retinopathy (Acute) Skin cancer (Acute) Subdural hematoma (Resolved) Surgical History Surgical History History of brain surgery (Resolved) H/O parathyroidectomy (Acute) History of YAG laser capsulotomy of lens (Acute) Status post laser cataract surgery of both eyes (Acute) History of cardiac cath (Resolved) History of penile implant (Resolved) Kidney transplanted (Resolved) S/P CABG x 5 (Resolved) Social History Social History Substance History: No History of Abuse Second Hand Smoke Exposure: No Smoking Status: Never smoker How Often Do You Have a Drink Containing Alcohol: Never Hx Recent Travel: No Recent Travel in [facility] within the Last 8 Weeks: No Recent Out of Country Travel within the Last 8 Weeks: No Immunization History Tetanus Immunization: <5 Years Exam Const General: comfortable and well developed Nutritional Appearance: other (Chronically ill-appearing) Orientation: alert, awake and oriented x3 [facility] Head: normal to inspection, normocephalic and atraumatic Mouth: moist mucous membranes Eyes Alignment and Position: alignment normal and position abnormal Conjunctivae: conjunctivae normal Sclera: sclerae normal EOM: EOM intact bilaterally Neck Neck: normal visual inspection and full ROM Chest Chest: normal inspection of the chest Resp Effort & Inspection: normal respiratory effort Cardio Rate: regular rate Rhythm: regular rhythm GI Inspection: normal to inspection Palpation: soft and tender suprapubicly Back/Spine/Pelvis Cervical Spine: cervical ROM normal Thoracic/Lumbar Spine: thoraco-lumbar ROM normal Skin General: no rashes or lesions noted, turgor normal and dry skin Neuro General: alert, awake, oriented x3, moves all extremities and CN's II-XI intact bilaterally Extrem General: normal to inspection and full ROM Course Initial Documented Vital Signs Temperature 97.8 F 07/21/18 14:11 Pulse Rate 73 07/21/18 14:11 Respiratory Rate 23 07/21/18 14:11 Blood Pressure 99/57 L 07/21/18 14:11 Pulse Oximetry 99 07/21/18 14:11 Last Documented Vital Signs Temperature 97.8 F 07/23/18 12:02 Pulse Rate 81 07/23/18 12:02 Respiratory Rate 16 07/23/18 12:02 Blood Pressure 121/56 L 07/23/18 12:02 Pulse Oximetry 99 07/23/18 12:02 Sign Out Sign Out Data: Patient Sign Out occurred on 07/21/18 at 15:18. Patient's care was discussed, and care was transferred from Shanon Means to Elmira Alvarado MD. Sign Out Comment: pending weakness work up Last updated by Shanon Means at 07/21/18 14:48 Post-Handoff Eval: Patient is a 78 year old male who comes in because family states he is unresponsive today, which they say is abnormal for him. They are concerned about UTI. While in the room, I witness the patient turn his head to the side and having shaking movement of his left arm. He had 2 other episodes similar to this. Given 0.5mg Ativan for possible seizures. UA is positive for UTI. Given Vancomycin based on previous cultures. Ammonia level is elevated. Admitted for further management. Medical Decision Making MDM Narrative Medical decision making narrative: His family reports that he is currently being treated for urinary tract infection.This patient is sent us by [facility] per his family's request for altered mental status. He lives at home. They report that his mental status was normal through lunchtime. His mental status then started to wane and became progressively worse over the next couple of hours. [facility] was called and he was brought here. They deny any nausea or vomiting. No significant cough or apparent difficulty breathing. No known fevers. I have initiated a weakness workup. He will be given a fluid bolus. Patient admitted for further management. Medical Screen Exam Complete: Yes Emergency Medical Condition: Yes Differential Diagnosis Differential Diagnosis: Differential diagnosis of weakness includes but is not limited to infection, CVA, electrolyte disturbance, renal failure, hypoglycemia Medical Records Medical records reviewed: Yes I reviewed the patient's medical records. Lab Data Lab results reviewed: Yes I reviewed the patient's lab results. Result diagrams: 07/22/18 05:20 07/23/18 06:04 Lab Results 07/21/18 07/21/18 07/21/18 Range/Units 14:37 14:37 15:35 WBC 9.3 (4.0-11.0) th/mm3 RBC 4.97 (4.50-5.90) mil/mm3 Hgb 14.0 (13.0-17.0) gm/dL Hct 42.4 (39.0-51.0) % MCV 85.3 (80.0-100.0) fL MCH 28.1 (27.0-34.0) pg MCHC 32.9 (32.0-36.0) % RDW 18.5 H (11.6-17.2) % Plt Count 165 D (150-450) th/mm3 MPV 8.6 (7.0-11.0) fL Neut % (Auto) 75.5 H (16.0-70.0) % Lymph % (Auto) 7.1 L (9.0-44.0) % Emmet % (Auto) 15.8 H (0.0-8.0) % Eos % (Auto) 1.2 (0.0-4.0) % Baso % (Auto) 0.4 (0.0-2.0) % Neut # (Auto) 7.0 (1.8-7.7) th/mm3 Lymph # (Auto) 0.7 L (1.0-4.8) th/mm3 Emmet # (Auto) 1.5 H (0.0-0.9) th/mm3 Eos # (Auto) 0.1 (0.0-0.4) th/mm3 Baso # (Auto) 0.0 (0.0-0.2) th/mm3 WBC Differential . Differential Comment Auto diff final Puncture Site Patient Temperature O2 Saturation (90-100) % ABG pH (7.380-7.420) ABG pCO2 (38-42) mmHg ABG pO2 (61-120) mmHg ABG HCO3 (22-26) mmol/L ABG O2 Content (12.0-20.0) Vol % ABG Base Excess (-2-2) mmol/L ABG Methemoglobin (0-2) % Edy Test Hemoglobin (12.0-16.0) G/DL Carboxyhemoglobin (0-4) % O2 Delivery Device Liter Flow L/M Critical Value Sodium 135 L (136-145) meq/L Potassium 4.1 (3.5-5.1) meq/L Chloride 90 L (98-107) meq/L Carbon Dioxide 39.1 H (21.0-32.0) meq/L Anion Gap 6 (5-15) meq/L BUN 45 H (7-18) mg/dL Creatinine 2.00 H (0.60-1.30) mg/dL Estimated GFR 32 L (>89) mL/min POC Glucose (68-110) mg/dl Random Glucose 220 H (74-106) mg/dL Lactic Acid (0.4-2.0) mmol/L Calcium 7.5 L (8.5-10.1) mg/dL Calcium Adj for Albumin (8.5-10.1) mg/dL Magnesium 1.8 (1.5-2.5) mg/dL Total Bilirubin 1.4 H (0.2-1.0) mg/dL AST 27 (15-37) U/L ALT 9 L (12-78) U/L Alkaline Phosphatase 140 H (45-117) U/L Ammonia 66 H (11-32) mcmol/L Lactate Dehydrogenase 326 H (87-241) U/L Troponin I 0.03 (0.02-0.05) ng/mL Total Protein 6.7 (6.4-8.2) g/dL Albumin 2.9 L (3.4-5.0) g/dL Urine Color (Yellw/Straw) Urine Clarity (Clear) Urine pH (5.0-8.5) Ur Specific [place] (1.002-1.035) Urine Protein (Neg-Trace) mg/dL Urine Glucose (UA) (Negative) mg/dL Urine Ketones (Negative) mg/dL Urine Occult Blood (Negative) Urine Nitrate (Negative) Urine Bilirubin (Negative) Urine Urobilinogen (Less than 2) mg/dL Ur Leukocyte Esterase (Negative) Urine WBC (0-5) /hpf Urine WBC Clumps (None) Urine Bacteria (None) /hpf Hyaline Casts (0-3) /lpf Urine Mucus (Occasional) /lpf Micro UA Comment Ur Microscopic Review Urine Culture Comments 07/21/18 07/21/18 07/22/18 Range/Units 16:22 16:35 01:06 WBC (4.0-11.0) th/mm3 RBC (4.50-5.90) mil/mm3 Hgb (13.0-17.0) gm/dL Hct (39.0-51.0) % MCV (80.0-100.0) fL MCH (27.0-34.0) pg MCHC (32.0-36.0) % RDW (11.6-17.2) % Plt Count (150-450) th/mm3 MPV (7.0-11.0) fL Neut % (Auto) (16.0-70.0) % Lymph % (Auto) (9.0-44.0) % Emmet % (Auto) (0.0-8.0) % Eos % (Auto) (0.0-4.0) % Baso % (Auto) (0.0-2.0) % Neut # (Auto) (1.8-7.7) th/mm3 Lymph # (Auto) (1.0-4.8) th/mm3 Emmet # (Auto) (0.0-0.9) th/mm3 Eos # (Auto) (0.0-0.4) th/mm3 Baso # (Auto) (0.0-0.2) th/mm3 WBC Differential Differential Comment Puncture Site Patient Temperature O2 Saturation (90-100) % ABG pH (7.380-7.420) ABG pCO2 (38-42) mmHg ABG pO2 (61-120) mmHg ABG HCO3 (22-26) mmol/L ABG O2 Content (12.0-20.0) Vol % ABG Base Excess (-2-2) mmol/L ABG Methemoglobin (0-2) % Edy Test Hemoglobin (12.0-16.0) G/DL Carboxyhemoglobin (0-4) % O2 Delivery Device Liter Flow L/M Critical Value Sodium (136-145) meq/L Potassium (3.5-5.1) meq/L Chloride (98-107) meq/L Carbon Dioxide (21.0-32.0) meq/L Anion Gap (5-15) meq/L BUN (7-18) mg/dL Creatinine (0.60-1.30) mg/dL Estimated GFR (>89) mL/min POC Glucose 227 H (68-110) mg/dl Random Glucose (74-106) mg/dL Lactic Acid 1.8 (0.4-2.0) mmol/L Calcium (8.5-10.1) mg/dL Calcium Adj for Albumin (8.5-10.1) mg/dL Magnesium (1.5-2.5) mg/dL Total Bilirubin (0.2-1.0) mg/dL AST (15-37) U/L ALT (12-78) U/L Alkaline Phosphatase (45-117) U/L Ammonia (11-32) mcmol/L Lactate Dehydrogenase (87-241) U/L Troponin I (0.02-0.05) ng/mL Total Protein (6.4-8.2) g/dL Albumin (3.4-5.0) g/dL Urine Color Yellow (Yellw/Straw) Urine Clarity Hazy H (Clear) Urine pH 6.0 (5.0-8.5) Ur Specific [place] 1.009 (1.002-1.035) Urine Protein Negative (Neg-Trace) mg/dL Urine Glucose (UA) Negative (Negative) mg/dL Urine Ketones Negative (Negative) mg/dL Urine Occult Blood Negative (Negative) Urine Nitrate Negative (Negative) Urine Bilirubin Negative (Negative) Urine Urobilinogen Less than 2 (Less than 2) mg/dL Ur Leukocyte Esterase Large H (Negative) Urine WBC 68 H (0-5) /hpf Urine WBC Clumps Few H (None) Urine Bacteria Rare H (None) /hpf Hyaline Casts 7 (0-3) /lpf Urine Mucus Few H (Occasional) /lpf Micro UA Comment Cath-culture ind Ur Microscopic Review Not Reportable Urine Culture Comments Cath-cult indicated 07/22/18 07/22/18 07/22/18 Range/Units 05:17 05:20 05:20 WBC 8.5 (4.0-11.0) th/mm3 RBC 4.64 (4.50-5.90) mil/mm3 Hgb 13.2 (13.0-17.0) gm/dL Hct 39.7 (39.0-51.0) % MCV 85.6 (80.0-100.0) fL MCH 28.4 (27.0-34.0) pg MCHC 33.2 (32.0-36.0) % RDW 18.8 H (11.6-17.2) % Plt Count 142 L (150-450) th/mm3 MPV 8.5 (7.0-11.0) fL Neut % (Auto) 73.6 H (16.0-70.0) % Lymph % (Auto) 8.6 L (9.0-44.0) % Emmet % (Auto) 16.4 H (0.0-8.0) % Eos % (Auto) 1.0 (0.0-4.0) % Baso % (Auto) 0.4 (0.0-2.0) % Neut # (Auto) 6.2 (1.8-7.7) th/mm3 Lymph # (Auto) 0.7 L (1.0-4.8) th/mm3 Emmet # (Auto) 1.4 H (0.0-0.9) th/mm3 Eos # (Auto) 0.1 (0.0-0.4) th/mm3 Baso # (Auto) 0.0 (0.0-0.2) th/mm3 WBC Differential . Differential Comment Auto diff final Puncture Site Patient Temperature O2 Saturation (90-100) % ABG pH (7.380-7.420) ABG pCO2 (38-42) mmHg ABG pO2 (61-120) mmHg ABG HCO3 (22-26) mmol/L ABG O2 Content (12.0-20.0) Vol % ABG Base Excess (-2-2) mmol/L ABG Methemoglobin (0-2) % Edy Test Hemoglobin (12.0-16.0) G/DL Carboxyhemoglobin (0-4) % O2 Delivery Device Liter Flow L/M Critical Value Sodium 138 (136-145) meq/L Potassium 3.3 L D (3.5-5.1) meq/L Chloride 94 L (98-107) meq/L Carbon Dioxide 37.9 H (21.0-32.0) meq/L Anion Gap 6 (5-15) meq/L BUN 46 H (7-18) mg/dL Creatinine 1.74 H (0.60-1.30) mg/dL Estimated GFR 38 L (>89) mL/min POC Glucose 152 H (68-110) mg/dl Random Glucose 157 H (74-106) mg/dL Lactic Acid (0.4-2.0) mmol/L Calcium 7.1 L* (8.5-10.1) mg/dL Calcium Adj for Albumin 8.3 L (8.5-10.1) mg/dL Magnesium (1.5-2.5) mg/dL Total Bilirubin 1.0 (0.2-1.0) mg/dL AST 11 L (15-37) U/L ALT 10 L (12-78) U/L Alkaline Phosphatase 127 H (45-117) U/L Ammonia (11-32) mcmol/L Lactate Dehydrogenase (87-241) U/L Troponin I (0.02-0.05) ng/mL Total Protein 6.2 L (6.4-8.2) g/dL Albumin 2.5 L (3.4-5.0) g/dL Urine Color (Yellw/Straw) Urine Clarity (Clear) Urine pH (5.0-8.5) Ur Specific [place] (1.002-1.035) Urine Protein (Neg-Trace) mg/dL Urine Glucose (UA) (Negative) mg/dL Urine Ketones (Negative) mg/dL Urine Occult Blood (Negative) Urine Nitrate (Negative) Urine Bilirubin (Negative) Urine Urobilinogen (Less than 2) mg/dL Ur Leukocyte Esterase (Negative) Urine WBC (0-5) /hpf Urine WBC Clumps (None) Urine Bacteria (None) /hpf Hyaline Casts (0-3) /lpf Urine Mucus (Occasional) /lpf Micro UA Comment Ur Microscopic Review Urine Culture Comments 07/22/18 07/22/18 07/22/18 Range/Units 05:20 11:24 18:10 WBC (4.0-11.0) th/mm3 RBC (4.50-5.90) mil/mm3 Hgb (13.0-17.0) gm/dL Hct (39.0-51.0) % MCV (80.0-100.0) fL MCH (27.0-34.0) pg MCHC (32.0-36.0) % RDW (11.6-17.2) % Plt Count (150-450) th/mm3 MPV (7.0-11.0) fL Neut % (Auto) (16.0-70.0) % Lymph % (Auto) (9.0-44.0) % Emmet % (Auto) (0.0-8.0) % Eos % (Auto) (0.0-4.0) % Baso % (Auto) (0.0-2.0) % Neut # (Auto) (1.8-7.7) th/mm3 Lymph # (Auto) (1.0-4.8) th/mm3 Emmet # (Auto) (0.0-0.9) th/mm3 Eos # (Auto) (0.0-0.4) th/mm3 Baso # (Auto) (0.0-0.2) th/mm3 WBC Differential Differential Comment Puncture Site Patient Temperature O2 Saturation (90-100) % ABG pH (7.380-7.420) ABG pCO2 (38-42) mmHg ABG pO2 (61-120) mmHg ABG HCO3 (22-26) mmol/L ABG O2 Content (12.0-20.0) Vol % ABG Base Excess (-2-2) mmol/L ABG Methemoglobin (0-2) % Edy Test Hemoglobin (12.0-16.0) G/DL Carboxyhemoglobin (0-4) % O2 Delivery Device Liter Flow L/M Critical Value Sodium (136-145) meq/L Potassium (3.5-5.1) meq/L Chloride (98-107) meq/L Carbon Dioxide (21.0-32.0) meq/L Anion Gap (5-15) meq/L BUN (7-18) mg/dL Creatinine (0.60-1.30) mg/dL Estimated GFR (>89) mL/min POC Glucose 156 H 198 H (68-110) mg/dl Random Glucose (74-106) mg/dL Lactic Acid (0.4-2.0) mmol/L Calcium (8.5-10.1) mg/dL Calcium Adj for Albumin (8.5-10.1) mg/dL Magnesium (1.5-2.5) mg/dL Total Bilirubin (0.2-1.0) mg/dL AST (15-37) U/L ALT (12-78) U/L Alkaline Phosphatase (45-117) U/L Ammonia 64 H (11-32) mcmol/L Lactate Dehydrogenase (87-241) U/L Troponin I (0.02-0.05) ng/mL Total Protein (6.4-8.2) g/dL Albumin (3.4-5.0) g/dL Urine Color (Yellw/Straw) Urine Clarity (Clear) Urine pH (5.0-8.5) Ur Specific [place] (1.002-1.035) Urine Protein (Neg-Trace) mg/dL Urine Glucose (UA) (Negative) mg/dL Urine Ketones (Negative) mg/dL Urine Occult Blood (Negative) Urine Nitrate (Negative) Urine Bilirubin (Negative) Urine Urobilinogen (Less than 2) mg/dL Ur Leukocyte Esterase (Negative) Urine WBC (0-5) /hpf Urine WBC Clumps (None) Urine Bacteria (None) /hpf Hyaline Casts (0-3) /lpf Urine Mucus (Occasional) /lpf Micro UA Comment Ur Microscopic Review Urine Culture Comments 07/22/18 07/23/18 07/23/18 Range/Units 23:46 05:49 06:04 WBC (4.0-11.0) th/mm3 RBC (4.50-5.90) mil/mm3 Hgb (13.0-17.0) gm/dL Hct (39.0-51.0) % MCV (80.0-100.0) fL MCH (27.0-34.0) pg MCHC (32.0-36.0) % RDW (11.6-17.2) % Plt Count (150-450) th/mm3 MPV (7.0-11.0) fL Neut % (Auto) (16.0-70.0) % Lymph % (Auto) (9.0-44.0) % Emmet % (Auto) (0.0-8.0) % Eos % (Auto) (0.0-4.0) % Baso % (Auto) (0.0-2.0) % Neut # (Auto) (1.8-7.7) th/mm3 Lymph # (Auto) (1.0-4.8) th/mm3 Emmet # (Auto) (0.0-0.9) th/mm3 Eos # (Auto) (0.0-0.4) th/mm3 Baso # (Auto) (0.0-0.2) th/mm3 WBC Differential Differential Comment Puncture Site Patient Temperature O2 Saturation (90-100) % ABG pH (7.380-7.420) ABG pCO2 (38-42) mmHg ABG pO2 (61-120) mmHg ABG HCO3 (22-26) mmol/L ABG O2 Content (12.0-20.0) Vol % ABG Base Excess (-2-2) mmol/L ABG Methemoglobin (0-2) % Edy Test Hemoglobin (12.0-16.0) G/DL Carboxyhemoglobin (0-4) % O2 Delivery Device Liter Flow L/M Critical Value Sodium 138 (136-145) meq/L Potassium 3.6 (3.5-5.1) meq/L Chloride 95 L (98-107) meq/L Carbon Dioxide 34.4 H (21.0-32.0) meq/L Anion Gap 9 (5-15) meq/L BUN 47 H (7-18) mg/dL Creatinine 1.92 H (0.60-1.30) mg/dL Estimated GFR 34 L (>89) mL/min POC Glucose 249 H 191 H (68-110) mg/dl Random Glucose 190 H (74-106) mg/dL Lactic Acid (0.4-2.0) mmol/L Calcium 7.4 L* (8.5-10.1) mg/dL Calcium Adj for Albumin 8.5 (8.5-10.1) mg/dL Magnesium (1.5-2.5) mg/dL Total Bilirubin (0.2-1.0) mg/dL AST (15-37) U/L ALT (12-78) U/L Alkaline Phosphatase (45-117) U/L Ammonia (11-32) mcmol/L Lactate Dehydrogenase (87-241) U/L Troponin I (0.02-0.05) ng/mL Total Protein (6.4-8.2) g/dL Albumin 2.6 L (3.4-5.0) g/dL Urine Color (Yellw/Straw) Urine Clarity (Clear) Urine pH (5.0-8.5) Ur Specific [place] (1.002-1.035) Urine Protein (Neg-Trace) mg/dL Urine Glucose (UA) (Negative) mg/dL Urine Ketones (Negative) mg/dL Urine Occult Blood (Negative) Urine Nitrate (Negative) Urine Bilirubin (Negative) Urine Urobilinogen (Less than 2) mg/dL Ur Leukocyte Esterase (Negative) Urine WBC (0-5) /hpf Urine WBC Clumps (None) Urine Bacteria (None) /hpf Hyaline Casts (0-3) /lpf Urine Mucus (Occasional) /lpf Micro UA Comment Ur Microscopic Review Urine Culture Comments 07/23/18 07/23/18 07/23/18 Range/Units 10:38 10:40 11:41 WBC (4.0-11.0) th/mm3 RBC (4.50-5.90) mil/mm3 Hgb (13.0-17.0) gm/dL Hct (39.0-51.0) % MCV (80.0-100.0) fL MCH (27.0-34.0) pg MCHC (32.0-36.0) % RDW (11.6-17.2) % Plt Count (150-450) th/mm3 MPV (7.0-11.0) fL Neut % (Auto) (16.0-70.0) % Lymph % (Auto) (9.0-44.0) % Emmet % (Auto) (0.0-8.0) % Eos % (Auto) (0.0-4.0) % Baso % (Auto) (0.0-2.0) % Neut # (Auto) (1.8-7.7) th/mm3 Lymph # (Auto) (1.0-4.8) th/mm3 Emmet # (Auto) (0.0-0.9) th/mm3 Eos # (Auto) (0.0-0.4) th/mm3 Baso # (Auto) (0.0-0.2) th/mm3 WBC Differential Differential Comment Puncture Site Left radial Patient Temperature 98.6 O2 Saturation 96 (90-100) % ABG pH 7.41 (7.380-7.420) ABG pCO2 55 H* (38-42) mmHg ABG pO2 185 H (61-120) mmHg ABG HCO3 34 H (22-26) mmol/L ABG O2 Content 19.5 (12.0-20.0) Vol % ABG Base Excess 9.1 H (-2-2) mmol/L ABG Methemoglobin 1.1 (0-2) % Edy Test Present Hemoglobin 14.1 (12.0-16.0) G/DL Carboxyhemoglobin 2.0 (0-4) % O2 Delivery Device Nasal cannula Liter Flow 6.00 L/M Critical Value Yes Sodium (136-145) meq/L Potassium (3.5-5.1) meq/L Chloride (98-107) meq/L Carbon Dioxide (21.0-32.0) meq/L Anion Gap (5-15) meq/L BUN (7-18) mg/dL Creatinine (0.60-1.30) mg/dL Estimated GFR (>89) mL/min POC Glucose 176 H (68-110) mg/dl Random Glucose (74-106) mg/dL Lactic Acid (0.4-2.0) mmol/L Calcium (8.5-10.1) mg/dL Calcium Adj for Albumin (8.5-10.1) mg/dL Magnesium (1.5-2.5) mg/dL Total Bilirubin (0.2-1.0) mg/dL AST (15-37) U/L ALT (12-78) U/L Alkaline Phosphatase (45-117) U/L Ammonia 35 H (11-32) mcmol/L Lactate Dehydrogenase (87-241) U/L Troponin I (0.02-0.05) ng/mL Total Protein (6.4-8.2) g/dL Albumin (3.4-5.0) g/dL Urine Color (Yellw/Straw) Urine Clarity (Clear) Urine pH (5.0-8.5) Ur Specific [place] (1.002-1.035) Urine Protein (Neg-Trace) mg/dL Urine Glucose (UA) (Negative) mg/dL Urine Ketones (Negative) mg/dL Urine Occult Blood (Negative) Urine Nitrate (Negative) Urine Bilirubin (Negative) Urine Urobilinogen (Less than 2) mg/dL Ur Leukocyte Esterase (Negative) Urine WBC (0-5) /hpf Urine WBC Clumps (None) Urine Bacteria (None) /hpf Hyaline Casts (0-3) /lpf Urine Mucus (Occasional) /lpf Micro UA Comment Ur Microscopic Review Urine Culture Comments 07/23/18 Range/Units 12:34 WBC (4.0-11.0) th/mm3 RBC (4.50-5.90) mil/mm3 Hgb (13.0-17.0) gm/dL Hct (39.0-51.0) % MCV (80.0-100.0) fL MCH (27.0-34.0) pg MCHC (32.0-36.0) % RDW (11.6-17.2) % Plt Count (150-450) th/mm3 MPV (7.0-11.0) fL Neut % (Auto) (16.0-70.0) % Lymph % (Auto) (9.0-44.0) % Emmet % (Auto) (0.0-8.0) % Eos % (Auto) (0.0-4.0) % Baso % (Auto) (0.0-2.0) % Neut # (Auto) (1.8-7.7) th/mm3 Lymph # (Auto) (1.0-4.8) th/mm3 Emmet # (Auto) (0.0-0.9) th/mm3 Eos # (Auto) (0.0-0.4) th/mm3 Baso # (Auto) (0.0-0.2) th/mm3 WBC Differential Differential Comment Puncture Site Patient Temperature O2 Saturation (90-100) % ABG pH (7.380-7.420) ABG pCO2 (38-42) mmHg ABG pO2 (61-120) mmHg ABG HCO3 (22-26) mmol/L ABG O2 Content (12.0-20.0) Vol % ABG Base Excess (-2-2) mmol/L ABG Methemoglobin (0-2) % Edy Test Hemoglobin (12.0-16.0) G/DL Carboxyhemoglobin (0-4) % O2 Delivery Device Liter Flow L/M Critical Value Sodium (136-145) meq/L Potassium (3.5-5.1) meq/L Chloride (98-107) meq/L Carbon Dioxide (21.0-32.0) meq/L Anion Gap (5-15) meq/L BUN (7-18) mg/dL Creatinine (0.60-1.30) mg/dL Estimated GFR (>89) mL/min POC Glucose 182 H (68-110) mg/dl Random Glucose (74-106) mg/dL Lactic Acid (0.4-2.0) mmol/L Calcium (8.5-10.1) mg/dL Calcium Adj for Albumin (8.5-10.1) mg/dL Magnesium (1.5-2.5) mg/dL Total Bilirubin (0.2-1.0) mg/dL AST (15-37) U/L ALT (12-78) U/L Alkaline Phosphatase (45-117) U/L Ammonia (11-32) mcmol/L Lactate Dehydrogenase (87-241) U/L Troponin I (0.02-0.05) ng/mL Total Protein (6.4-8.2) g/dL Albumin (3.4-5.0) g/dL Urine Color (Yellw/Straw) Urine Clarity (Clear) Urine pH (5.0-8.5) Ur Specific [place] (1.002-1.035) Urine Protein (Neg-Trace) mg/dL Urine Glucose (UA) (Negative) mg/dL Urine Ketones (Negative) mg/dL Urine Occult Blood (Negative) Urine Nitrate (Negative) Urine Bilirubin (Negative) Urine Urobilinogen (Less than 2) mg/dL Ur Leukocyte Esterase (Negative) Urine WBC (0-5) /hpf Urine WBC Clumps (None) Urine Bacteria (None) /hpf Hyaline Casts (0-3) /lpf Urine Mucus (Occasional) /lpf Micro UA Comment Ur Microscopic Review Urine Culture Comments Imaging Data Radiologist's impression: Chest X-Ray 07/21/18 14:28 CONCLUSION: Moderate pleural effusion with parenchymal consolidation at the left lung base again noted. Abdomen/Pelvis CT 07/21/18 15:33 CONCLUSION: 1. 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 2. Large amount of stool in the rectum. 3. Body wall edema/anasarca. 4. Left greater than right pleural effusions and basilar atelectasis. 5. Atherosclerotic abdominal aorta. No aneurysm. Head CT 07/21/18 15:33 CONCLUSION: 1. No acute intracranial abnormality demonstrated. 2. 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 3. Old right frontal craniotomy with chronic meningeal scarring. 4. Chronic white matter changes. . . Chest X-Ray 07/22/18 06:00 CONCLUSION: 1. Persistent left basilar consolidation/effusion. 2. Interval resolution of the previously seen small right effusion. Head MRI 07/23/18 13:46 CONCLUSION: 1. No acute hemorrhage, mass or evidence of acute infarction. 2. Remote postsurgical changes status post right craniotomy with areas of encephalomalacia. There is a cystic structure along the anterior right temporal lobe which may represent an arachnoid cyst. 3. Abnormal tissue mass along the inner table of the right frontal bone which may represent a meningioma. 4. Small lacunar infarct right side of the tiana. 5. The study is degraded by motion artifact. ECG Data EKG Prior to Arrival: No Attestation: I personally reviewed and interpreted this ECG as follows: Discharge Plan Discharge Disposition Patient Disposition: ED Admit(ED Internal Use Only) Discharge Condition Condition: Stable Discharge Order Discharge Orders: ED Use Only Admit Order (Routine); Ordered 07/21/18 Ordered By: Elmira lAvarado Discharge Details Diagnosis: Altered mental state, Acute UTI Physicians Team ED Provider: Elmira Al[facility] Provider: Luis Angel Beasley Attending Provider: Doug Tsang Other Providers: Jone Gray ; Mariano Lee ; Jayden Perkins Status ED Status: Left Department Discharge Information Discharge Date/Time: 07/22/18 01:22
[2018-07-21 14:50] LABS: Baso % (Auto) 0.4 % (0.0-2.0); Eos # (Auto) 0.1 th/mm3 (0.0-0.4); Eos % (Auto) 1.2 % (0.0-4.0); Hematocrit 42.4 % (39.0-51.0); Lymph # (Auto) 0.7 th/mm3 (1.0-4.8); Lymph % (Auto) 7.1 % (9.0-44.0); Mean Corpuscular HGB Conc 32.9 % (32.0-36.0); Mean Corpuscular Hemoglobin 28.1 pg (27.0-34.0); Mean Corpuscular Volume 85.3 fL (80.0-100.0); Mean Platelet Volume 8.6 fL (7.0-11.0); Mono # (Auto) 1.5 th/mm3 (0.0-0.9); Mono % (Auto) 15.8 % (0.0-8.0); Neut % (Auto) 75.5 % (16.0-70.0); Platelet Count 165 th/mm3 (150-450); Red Blood Count 4.97 mil/mm3 (4.50-5.90); Red Cell Distribution Width 18.5 % (11.6-17.2); White Blood Count 9.3 th/mm3 (4.0-11.0)
[2018-07-21 15:06] LABS: Alkaline Phosphatase 140 U/L (45-117); Total Protein 6.7 g/dL (6.4-8.2); Troponin I 0.03 ng/mL (0.02-0.05)
[2018-07-21 15:07] LABS: Alanine Aminotransferase 9 U/L (12-78); Albumin 2.9 g/dL (3.4-5.0); Anion Gap 6 meq/L (5-15); Aspartate Aminotransferase 27 U/L (15-37); Blood Urea Nitrogen 45 mg/dL (7-18); Calcium 7.5 mg/dL (8.5-10.1); Carbon Dioxide 39.1 meq/L (21.0-32.0); Chloride 90 meq/L (98-107); Glomerular Filtration Rate 32 mL/min (>89); Glucose,Random 220 mg/dL (74-106); Lactate Dehydrogenase 326 U/L (87-241); Magnesium 1.8 mg/dL (1.5-2.5); Sodium 135 meq/L (136-145)
[2018-07-21 15:15] LABS: Potassium 4.1 meq/L (3.5-5.1)
--- NOTE | 2018-07-21 15:33 | XR ---
EXAM DATE: 07/21/2018 3:28 PM EST AGE/SEX: 78 years / Male INDICATIONS: Altered mental status CLINICAL DATA: This is the patient's initial encounter. Patient reports that signs and symptoms have been present for 1 day and indicates a pain score of Nonresponsive. MEDICAL/SURGICAL HISTORY: Stroke. Congestive heart failure. skin cancer CABG. COMPARISON: [facility] [place], CHEST 1V SINGLE AP, 07/06/2018. . FINDINGS: Tiny right and moderate left pleural effusions are again noted without significant change. There is p ersistent left base consolidation. No pneumothorax. Heart size stable, upper limits of normal. Median sternotomy changes are again noted. CONCLUSION: Moderate pleural effusion with parenchymal consolidation at the left lung base again noted. Electronically signed by: Mendez Ritter MD Board Certified Radiologist 07/21/2018 3:31 PM EST
--- NOTE | 2018-07-21 16:07 | CT ---
EXAM DATE: 07/21/2018 4:01 PM EST AGE/SEX: 78 years / Male INDICATIONS: Abdominal pain, altered mental status. CLINICAL DATA: This is the patient's initial encounter. Patient reports that signs and symptoms have been present for 1 day and indicates a pain score of 7/10. MEDICAL/SURGICAL HISTORY: Cardiovascular disease. Congestive heart failure. Cerebrovascular d isease. Diabetes, chronic kidney disease, skin cancer. None. RADIATION DOSE: 11.74 CTDI (mGy) COMPARISON: [facility] – [place], CT ABDOMEN & PELVIS W CONTRAST, 09/24/2017. . TECHNIQUE: Multiple contiguous axial images were obtained through the abdomen. Images were obtained using multiple row detector helical technique. Using automated exposure control and adjustment of the mA and/or kV according to patient size, radiation dose was kept as low as reasonably achievable to o btain optimal diagnostic quality images. DICOM format image data is available electronically for rev iew and comparison. FINDINGS: Noncontrast appearance of the liver, spleen, pancreas and adrenal glands is within normal limits. Atr ophic kidneys. There is a transplant kidney in the right iliac fossa with mild hydronephrosis. No per ceptible stone. Very large amount of stool in the rectum. There are small right and moderate to large left pleural effusions with atelectasis of the bases. Hea rt is enlarged. Dense atherosclerosis seen of the abdominal aorta. No aneurysm. There is body wall edema/anasarca. CONCLUSION: 1. Hydronephrosis has developed of the transplant kidney in the right iliac fossa, etiology uncertai n. 2. Large amount of stool in the rectum. 3. Body wall edema/anasarca. 4. Left greater than right pleural effusions and basilar atelectasis. 5. Atherosclerotic abdominal aorta. No aneurysm. Electronically signed by: Mendez Ritter MD Board Certified Radiologist 07/21/2018 4:06 PM EST
--- NOTE | 2018-07-21 16:18 | CT ---
EXAM DATE: 07/21/2018 3:58 PM EST AGE/SEX: 78 years / Male INDICATIONS: Headache, blurred vision, altered mental status. CLINICAL DATA: This is the patient's initial encounter. Patient reports that signs and symptoms have been present for 1 day and indicates a pain score of 7/10. MEDICAL/SURGICAL HISTORY: Cardiovascular disease. Congestive heart failure. Cerebrovascular disea se. Chronic kidney disease, diabetes, skin cancer. None. RADIATION DOSE: 43.49 CTDI (mGy) COMPARISON: [facility] [place] W/O CONTRAST, 03/25/2018. [facility] [place] HEAD W/O CONTRAST, 07/04/2018. . TECHNIQUE: CT of the head without contrast. Using automated exposure control and adjustment of the mA and/or kV according to patient size, radiation dose was kept as low as reasonably achievable to ob tain optimal diagnostic quality images. DICOM format image data is available electronically for revi ew and comparison. FINDINGS: No acute intracranial hemorrhage or hematoma. Right frontal craniotomy changes with meningeal scarrin g again noted, unchanged. There is bifrontal and bitemporal encephalomalacia, right more so than left , unchanged. No mass, mass effect or midline shift. No evidence of an acute ischemic event. Atrophy and chronic wh ite matter changes are again noted. CONCLUSION: 1. No acute intracranial abnormality demonstrated. 2. 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 3. Old right frontal craniotomy with chronic meningeal scarring. 4. Chronic white matter changes. . . Electronically signed by: Mendez Ritter MD Board Certified Radiologist 07/21/2018 4:16 PM EST
[2018-07-21 17:09] LABS: Bacteria,Urine Rare /hpf; Bilirubin,Urine Negative (Negative); Clarity,Urine Hazy (Clear); Color,Urine Yellow (Yellw/Straw); Glucose,Urine (UA) Negative (Negative); Hyaline Casts,Urine 7 /lpf (0-3); Leukocyte Esterase,Urine Large (Negative); Mucus,Urine Few /lpf (Occasional); Nitrite,Urine Negative (Negative); Specific Gravity,Urine 1.009 (1.002-1.035)
[2018-07-21] MEDS ORDERED: Vancomycin Inj 1,000 MG in Sodium Chlor 0.9% Inj 250 ML IV.SIG ONE (17:18)
[2018-07-21] MEDS ORDERED: Acetaminophen 325 MG Tablet PO PRN (18:19)
[2018-07-21] MEDS ORDERED: Bisacodyl 10 MG Supp RECTAL PRN (18:19)
[2018-07-21] MEDS ORDERED: Sod Chloride 0.9% Inj 1,000 ML IV.CONT SCH ×2 (18:32→18:48)
[2018-07-21] MEDS ORDERED: Dextrose 50% in Water 50 ML Vial IV.PUSH PRN (18:36)
--- NOTE | 2018-07-21 18:41 | P.HPIM ---
History of Present Illness Primary Care Physician: Luis Angel Beasley MD History of Present Illness: Mr. Olson is a 78-year male with CAD, CHF with reported EF of 20%, hx of hemorrhagic CVA, diabetes, status post craniectomy due to meningioma, skin cancers, Renal osteodystrophy, parathyroidectomy, cardiac cath, laser eye surgery, transplanted kidney in 1998 , CABG 5, atrial fibrillation not on anticoagulation due to hemorrhagic stroke history, and dementia. Patient unable to provide meaningful information. Information gathered from at bedside, prior charting and physical exam. Pt was admitted in June for AMS and given some ivf and treated for staph epi uti with zyvoxx. He improved back to baseline. Admitted about 3 weeks ago for confusion. During that admission was negative for uti. He was seen by cardiology , pulmonary, palliative care. refused hospice and ultimately made him dnr but he did return to his previous mental baseline. has since made him full code again. says that he was swelling and gained 16pounds. She called cardiology and says torsemide was doubled to 40mg bid. Also started on macrobid per his pcp for "uti" but "cx negative". Today reports pt slumped forward in his chair for about 30sesconds and lost consciousness. He then has some left facial twitching. She reports that he remains confused from his baseline. has seen some "pus from urine" and consitpation. He c/o some abdomen pain to her. No other recent medications changes reported. ED performed ct a/p, ct head, cxr. Vanco ordered but wanted to hold of due to his worsening renal function. Past Medical Hx: CAD CHF with reported EF of 20% Recurrent pleural effusions. chonic Hx of hemorrhagic CVA Diabetes Hx of meningioma Skin cancers Renal osteodystrophy Atrial fibrillation not on anticoagulation due to hemorrhagic stroke history Dementia Past Surgical Hx: Thoracentesis x 3 Craniectomy for removal of meningioma Parathyroidectomy Cardiac cath YAG laser capsulotomy of lens Transplanted kidney in 1998 CABG 5 Family Hx: Mother with hx of Alzheimer's dementia and hypertension Father with hx of Lymphoma Social Hx: No reported alcohol, tobacco or illicit drug use Diagnosis (1) Syncope: (2) Delirium: (3) CKD (chronic kidney disease) stage 3, GFR 30-59 ml/min: (4) Hx of kidney transplant: (5) Cardiomyopathy: (6) History of CVA (cerebrovascular accident): (7) Atrial fibrillation: (8) CAD (coronary artery disease): Inpatient Certification Inpatient Certification: I certify that the inpatient services were ordered in accordance with Medicare regulations governing the order. This includes certification that hospital inpatient services are reasonable and necessary and in the case of services not specified as inpatient-only under 42 CFR 419.22(n), that they are appropriately provided as inpatient services in accordance to with the 2-midnight benchmark under 43 CFR 412.3(e) Estimated Total Length of Stay (Days): 3 Plans for Post Hospital Care: Home Medications and Allergies Allergies Allergy/AdvReac Type Severity Reaction Status Date / Time aspirin Allergy Severe Bleeding Verified 07/04/18 10:43 diclofenac Allergy Severe bleeding Verified 07/04/18 10:43 etodolac Allergy Severe bleeding Verified 07/04/18 10:43 flurbiprofen Allergy Severe bleeding Verified 07/04/18 10:43 haloperidol Allergy Severe Confusion Verified 07/04/18 10:43 ibuprofen Allergy Severe bleeding Verified 07/04/18 10:43 indomethacin Allergy Severe bleeding Verified 07/04/18 10:43 ketoprofen Allergy Severe bleeding Verified 07/04/18 10:43 ketorolac Allergy Severe bleeding Verified 07/04/18 10:43 naproxen Allergy Severe bleeding Verified 07/04/18 10:43 oxaprozin Allergy Severe bleeding Verified 07/04/18 10:43 oxcarbazepine Allergy Severe Bleeding Verified 07/04/18 10:43 Home Medications Medication Instructions Recorded Confirmed Type bethanechol chloride 25 mg PO BID 03/19/18 07/21/18 History calcitriol 0.5 mcg PO DAILY 03/19/18 07/21/18 History finasteride 5 mg PO DAILY 03/19/18 07/21/18 History insulin NPH and regular human 1 sliding scale dose SUBCUT UD 03/19/18 07/21/18 History [Novolin 70/30 U-100 Insulin] isosorbide mononitrate 30 mg PO DAILY 03/19/18 07/21/18 History levetiracetam 500 mg PO BID 03/19/18 07/21/18 History lorazepam [Ativan] 0.5 mg PO DAILY PRN 03/19/18 07/21/18 History melatonin 10 mg PO HS PRN 03/19/18 07/21/18 History metoprolol succinate [Toprol XL] 12.5 mg PO DAILY 03/19/18 07/21/18 History montelukast 10 mg PO QPM 03/19/18 07/21/18 History ondansetron HCl [Zofran] 8 mg PO TID PRN 03/19/18 07/21/18 History spironolactone 25 mg PO DAILY 03/19/18 07/21/18 History torsemide 40 mg PO BID 07/21/18 07/21/18 History Active Medications: Active Medications Acetaminophen (Tylenol) 650 mg PO Q4H PRN PRN Reason: Temp > 100.4 Al Hydroxide/Mg Hydroxide (Milk Of Magnesia Liq) 30 ml PO Q12H PRN PRN Reason: Mild Constipation Bisacodyl (Dulcolax Supp) 10 mg RECTAL DAILY PRN PRN Reason: SEVERE CONSITIPATION Dextrose (D50w Vial) 50 ml IV.PUSH UNSCH PRN PRN Reason: PER HYPOGLYCEMIA PROTOCOL Glucagon (Glucagon Inj) 1 mg OTHER PRN PRN PRN Reason: for Hypoglycemia Protocol Levetiracetam 500 mg/ Sodium (Chloride) 105 mls @ 400 mls/hr IV.SIG Q12H KIAN Sodium Chloride (Ns Inj) 1,000 mls @ 70 mls/hr IV.CONT .[id number] KIAN Linezolid (Zyvox 600 Mg Premix) 300 mls @ 300 mls/hr IV.SIG Q12H KIAN Ceftriaxone Sodium 1,000 mg/ (Sodium Chloride) 100 mls @ 200 mls/hr IV.SIG Q24H KIAN Insulin Aspart (Novolog Insulin Correctional Sugar Inj) 0 unit SQ Q6HR KIAN; Protocol Lactulose (Lactulose Liq) 30 ml PO DAILY PRN PRN Reason: SEVERE CONSITIPATION Ondansetron HCl (Zofran Inj) 4 mg IV.PUSH Q6H PRN PRN Reason: NAUSEA OR VOMITING Sennosides (Senokot) 17.2 mg PO Q12H PRN PRN Reason: Moderate Constipation Sodium Chloride (Ns Flush) 2 ml IV.FLUSH PRN PRN PRN Reason: FLUSH AFTER USING IV ACCESS Sodium Chloride (Ns Flush) 2 ml IV.FLUSH BID KIAN Sodium Chloride (Ns Flush) 2 ml IV.FLUSH PRN PRN PRN Reason: FLUSH AFTER USING IV ACCESS Physical Exam Vital signs: Last Vital Signs Temp 97.8 F 07/21/18 14:11 Pulse 78 07/21/18 16:30 Resp 26 H 07/21/18 15:17 BP 106/59 L 07/21/18 16:30 Pulse Ox 94 L 07/21/18 15:17 Narrative: confused cachectic dry mouth lung diminished bases abd s/nt/nabs ext trace edema heart reg Results Labs CBC & Chem 7: 07/21/18 14:37 07/21/18 14:37 Caprini VTE Risk Assessment Caprini VTE Risk Assessment: Moderate/High Risk (score >= 2) Caprini Risk Assessment Model: Point Value = 1 Point Value = 2 Point Value = 3 Point Value = 5 Age 41-60 Minor surgery BMI > 25 kg/m2 Swollen legs Varicose veins or History of unexplained or recurrent spontaneous Oral contraceptives or hormone replacement Sepsis (< 1 month) Serious lung disease, including pneumonia (< 1 month) Abnormal pulmonary function Acute myocardial infarction Congestive heart failure (< 1 month) History of inflammatory bowel disease Medical patient at bed rest Age 61-74 Arthroscopic surgery Major open surgery (> 45 min) Laparoscopic surgery (> 45 min) Malignancy Confined to bed (> 72 hours) Immobilizing plaster cast Central venous access Age >= 75 History of VTE Family history of VTE Factor V Leiden Prothrombin [id number] Lupus anticoagulant Anticardiolipin antibodies Elevated serum homocysteine Heparin-induced thrombocytopenia Other congenital or acquired thrombophilia Stroke (< 1 month) Elective arthroplasty Hip, pelvis, or leg fracture Acute spinal cord injury (< 1 month) Prophylaxis Regimen: Total Risk Factor Score Risk Level Prophylaxis Regimen 0-1 Low Early ambulation 2 Moderate Order ONE of the following: *Sequential Compression Device (SCD) *Heparin 5000 units SQ BID 3-4 Higher Order ONE of the following medications: *Heparin 5000 units SQ TID *Enoxaparin/Lovenox 40 mg SQ daily (WT < 150 kg, CrCl > 30 mL/min) *Enoxaparin/Lovenox 30 mg SQ daily (WT < 150 kg, CrCl > 10-29 mL/min) *Enoxaparin/Lovenox 30 mg SQ BID (WT < 150 kg, CrCl > 30 mL/min) AND/OR *Sequential Compression Device (SCD) 5 or more Highest Order ONE of the following medications: *Heparin 5000 units SQ TID (Preferred with Epidurals) *Enoxaparin/Lovenox 40 mg SQ daily (WT < 150 kg, CrCl > 30 mL/min) *Enoxaparin/Lovenox 30 mg SQ daily (WT < 150 kg, CrCl > 10-29 mL/min) *Enoxaparin/Lovenox 30 mg SQ BID (WT < 150 kg, CrCl > 30 mL/min) AND *Sequential Compression Device (SCD) Assessment and Plan Assessment (1) Syncope: Code(s): R55 - Syncope and collapse Status: Acute (2) Delirium: Code(s): R41.0 - Disorientation, unspecified Status: Acute (3) CKD (chronic kidney disease) stage 3, GFR 30-59 ml/min: Code(s): N18.3 - Chronic kidney disease, stage 3 (moderate) Status: Chronic (4) Hx of kidney transplant: Code(s): Z94.0 - Kidney transplant status Status: Chronic (5) Cardiomyopathy: Code(s): I42.9 - Cardiomyopathy, unspecified Status: Chronic (6) History of CVA (cerebrovascular accident): Code(s): Z86.73 - Personal history of transient ischemic attack (TIA), and cerebral infarction without residual deficits Status: Chronic (7) Atrial fibrillation: Code(s): I48.91 - Unspecified atrial fibrillation Status: Chronic (8) CAD (coronary artery disease): Code(s): I25.10 - Atherosclerotic heart disease of [place] coronary artery without angina pectoris Status: Chronic Plan Mr. Olson is a 77-year male with CAD, CHF with reported EF of 20% , hx of hemorrhagic CVA, diabetes, status post craniectomy due to meningioma, skin cancers, Renal osteodystrophy, parathyroidectomy, cardiac cath, laser eye surgery, transplanted kidney in 1998, CABG 5, atrial fibrillation not on anticoagulation due to hemorrhagic stroke history, and dementia. Patient unable to provide meaningful information. 1. systolic chf chronic with recent decompensation pt had diuretic torsemide increased 1 week ago gentle ivf overnight. hold diuretic overnight his respite worker is consulted resume his bb when able to take po monitor the pleural effusions/resp status. family recently refused drainage 2. syncope ?convulsive syncope could be related to transient hypotension/volume depletion doubt but exclude arrhythmia telemetry overnight hold diuretic. very gentle ivf overnight and recheck bmp 3. acute/ckd 3. s/p renal transplant evidence of mild hydropnephrosis of transplanted kidney... ?related to severe constipation. consult urology for the hydro of transplanted kidney discussed enema with family. will try suppository first gentle ivf 4. recurrent uti's.. ?related to Urine retention/hydro/constipation broad abx cover and f/u urine cx's. check outpt cx result address constipation urology consulted 5. delirium probably multifactorial. triny, r/o uti, recheck ammonia level..?related to hepatic congestion. see above recheck ammonia level f/u cx's swallow evaluation 6. hx afib. unable to tolerate anticoagulation. 7.Diabetes ssi. hold scheduled insulin 8.cad 9.dementia 10. chronic pleural effusion. left _ (1) CAD (coronary artery disease) Qualifiers: Associated angina: Coronary Disease-Associated Artery/Lesion type: [place] vs. transplanted heart: (2) Atrial fibrillation Qualifiers: Atrial fibrillation type: chronic Qualified Code(s): I48.2 - Chronic atrial fibrillation (3) Syncope Qualifiers: Encounter type: Syncope type: (4) Cardiomyopathy Qualifiers: Cardiomyopathy type: other Qualified Code(s): I42.8 - Other cardiomyopathies
[2018-07-21] MEDS ORDERED: Bisacodyl 10 MG Supp RECTAL ONE (18:55)
[2018-07-22] MEDS: Insulin NovoLOG Aspart Correctional Sugar Inj SQ SCH ×5 (01:29→23:57)
--- NOTE | 2018-07-22 05:10 | XR ---
EXAM DATE: 07/22/2018 4:58 AM EST AGE/SEX: 78 years / Male INDICATIONS: Cardiomyopathy. Weakness. CLINICAL DATA: This is the patient's subsequent encounter. Patient reports that signs and symptoms h ave been present for 4 - 6 days and indicates a pain score of Nonresponsive. MEDICAL/SURGICAL HISTORY: Cardiovascular disease. None. COMPARISON: [facility] [place], CHEST 1V SINGLE AP, 07/21/2018. . FINDINGS: A single AP view of the chest demonstrates the lungs to be symmetrically aerated with persistent left basilar consolidation/effusion. The small right-sided effusion seen previously has essentially resol anam. Heart size is borderline prominent. Findings of prior CABG with intact median sternotomy wires. Osseous structures are intact with some degenerative spurring of the dorsal spine. CONCLUSION: 1. Persistent left basilar consolidation/effusion. 2. Interval resolution of the previously seen small right effusion. Electronically signed by: Artemio Urena MD Board Certified Radiologist 07/22/2018 5:08 AM EST
[2018-07-22 05:37] LABS: Baso % (Auto) 0.4 % (0.0-2.0); Eos # (Auto) 0.1 th/mm3 (0.0-0.4); Hematocrit 39.7 % (39.0-51.0); Hemoglobin 13.2 gm/dL (13.0-17.0); Lymph # (Auto) 0.7 th/mm3 (1.0-4.8); Lymph % (Auto) 8.6 % (9.0-44.0); Mean Corpuscular HGB Conc 33.2 % (32.0-36.0); Mean Corpuscular Hemoglobin 28.4 pg (27.0-34.0); Mean Corpuscular Volume 85.6 fL (80.0-100.0); Mean Platelet Volume 8.5 fL (7.0-11.0); Mono # (Auto) 1.4 th/mm3 (0.0-0.9); Mono % (Auto) 16.4 % (0.0-8.0); Neut # (Auto) 6.2 th/mm3 (1.8-7.7); Neut % (Auto) 73.6 % (16.0-70.0); Platelet Count 142 th/mm3 (150-450); Red Blood Count 4.64 mil/mm3 (4.50-5.90); Red Cell Distribution Width 18.8 % (11.6-17.2); White Blood Count 8.5 th/mm3 (4.0-11.0)
[2018-07-22 06:11] LABS: Albumin 2.5 g/dL (3.4-5.0); Calcium 7.1 mg/dL (8.5-10.1); Carbon Dioxide 37.9 meq/L (21.0-32.0); Potassium 3.3 meq/L (3.5-5.1); Total Protein 6.2 g/dL (6.4-8.2)
--- NOTE | 2018-07-22 09:20 | P.PNIM ---
Subjective Interval history: pt slept well per . Physical Exam Vital signs: Last Vital Signs Temp 97.7 F 07/22/18 04:00 Pulse 82 07/22/18 04:00 Resp 16 07/22/18 04:00 BP 88/50 L 07/22/18 04:00 Pulse Ox 99 07/22/18 04:00 Narrative: confused cachectic dry mouth lung diminished bases abd s/nt/nabs ext trace edema heart reg Results Labs CBC & Chem 7: 07/22/18 05:20 07/22/18 05:20 Assessment and Plan Assessment (1) Syncope: Code(s): R55 - Syncope and collapse Status: Acute (2) Delirium: Code(s): R41.0 - Disorientation, unspecified Status: Acute (3) CKD (chronic kidney disease) stage 3, GFR 30-59 ml/min: Code(s): N18.3 - Chronic kidney disease, stage 3 (moderate) Status: Chronic (4) Hx of kidney transplant: Code(s): Z94.0 - Kidney transplant status Status: Chronic (5) Cardiomyopathy: Code(s): I42.9 - Cardiomyopathy, unspecified Status: Chronic (6) History of CVA (cerebrovascular accident): Code(s): Z86.73 - Personal history of transient ischemic attack (TIA), and cerebral infarction without residual deficits Status: Chronic (7) Atrial fibrillation: Code(s): I48.91 - Unspecified atrial fibrillation Status: Chronic (8) CAD (coronary artery disease): Code(s): I25.10 - Atherosclerotic heart disease of [place] coronary artery without angina pectoris Status: Chronic Plan Mr. Olson is a 77-year male with CAD, CHF with reported EF of 20% , hx of hemorrhagic CVA, diabetes, status post craniectomy due to meningioma, skin cancers, Renal osteodystrophy, parathyroidectomy, cardiac cath, laser eye surgery, transplanted kidney in 1998, CABG 5, atrial fibrillation not on anticoagulation due to hemorrhagic stroke history, and dementia. Patient unable to provide meaningful information. 1. systolic chf chronic with recent decompensation pt had diuretic torsemide increased 1 week ago gentle ivf overnight. add kcl held diuretic overnight his director of rehabilitation is consulted and evaluate his chf status today resume his bb when able to take po and bp tolerates monitor the pleural effusions/resp status. family recently refused drainage 2. syncope ?convulsive syncope could be related to transient hypotension/volume depletion doubt but exclude arrhythmia telemetry overnight hold diuretic. very gentle ivf overnight and recheck bmp 3. acute/ckd 3. s/p renal transplant evidence of mild hydropnephrosis of transplanted kidney... ?related to severe constipation. cr/gfr improving. consult urology for the hydro of transplanted kidney discussed enema with family. will try suppository first gentle ivf 4. recurrent uti's.. ?related to Urine retention/hydro/constipation broad abx cover and f/u urine cx's. check outpt cx result address constipation urology consulted 5. delirium probably multifactorial. triny, r/o uti, recheck ammonia level..?related to hepatic congestion. see above recheck ammonia level today still high if able to pass swallow eval will give lactulose today. f/u cx's swallow evaluation 6. hx afib. unable to tolerate anticoagulation. 7.Diabetes ssi. hold scheduled insulin 8.cad 9.dementia 10. chronic pleural effusion. left Progress Note: Quality VTE Deep Vein Thrombosis/Pulmonary Embolism Present on Admission: No _ (1) Syncope Qualifiers: Syncope type: Encounter type: (2) Cardiomyopathy Qualifiers: Cardiomyopathy type: other Qualified Code(s): I42.8 - Other cardiomyopathies (3) Atrial fibrillation Qualifiers: Atrial fibrillation type: chronic Qualified Code(s): I48.2 - Chronic atrial fibrillation (4) CAD (coronary artery disease) Qualifiers: Coronary Disease-Associated Artery/Lesion type: [place] vs. transplanted heart: Associated angina:
--- NOTE | 2018-07-22 14:01 | MB ---
cc: Niko Leen Russell DO DATE: 07/22/2018 HISTORY OF PRESENT ILLNESS: This is a patient well known to me who is a 78-year-old male with a history of a kidney transplant in the past. The patient was recently treated for a UTI approximately 1 month ago. Over the last few weeks, he has had some difficulty with urination, according to his , by voiding small amounts with urinary frequency. The patient underwent a CAT scan on this admission demonstrating hydronephrosis of the transplanted kidney with a partially distended bladder. He was also noted to be constipated. On admission, also his creatinine was slightly elevated at 1.74. PAST MEDICAL HISTORY: Noted for history of renal failure, status post kidney transplant, coronary artery disease, CHF, pleural effusions, hemorrhagic CVA, diabetes, meningioma, skin cancer, renal osteodystrophy, atrial fibrillation, dementia. PAST SURGICAL HISTORY: Kidney transplant in 1998, CABG x 5, eye surgery, parathyroidectomy, cardiac catheterization, craniotomy, thoracentesis. FAMILY HISTORY: Noted for lymphoma and Alzheimer disease with hypertension. SOCIAL HISTORY: Negative. REVIEW OF SYSTEMS: Unable to obtain. PHYSICAL EXAMINATION: VITAL SIGNS: Temperature 97.6, heart rate 74, respiratory rate 18, blood pressure 92/55. GENERAL: He is a well-developed, well-nourished, 78-year-old male in no acute distress. HEENT: Normocephalic, atraumatic. Pupils equal, round, regular and reactive to light. Extraocular movements intact. Neck is supple. HEART: Regular rate and rhythm. LUNGS: Clear. ABDOMEN: Soft, nontender, nondistended. Condom catheter in place. The patient had a large bowel movement today and is lying in stool at the present time. EXTREMITIES: Show no evidence of cyanosis, clubbing, or edema. LABORATORY DATA: White count 8.5, hemoglobin 13.2, hematocrit 39.7, platelet count of 142. Sodium 138, potassium 3.3, chloride 94, CO2 of 37.9, BUN 46, creatinine 1.74, glucose of 157. His baseline creatinine is in the 1.4 range to 1.5. Urinalysis shows rare bacteria, 3 white cells with 1 red cell with many white cell clumps. Urine culture shows no growth at 24 hours. Again, CT scan showed hydronephrosis of the transplanted kidney, large amount of stool in the rectum, bilateral pleural effusions and basilar atelectasis. ASSESSMENT: A 78-year-old male with history of kidney transplant with multiple medical problems. CT scan demonstrated hydronephrosis on the CAT scan with distended bladder. Recommend placement of a Mackenzie catheter at this time. Continue to treat constipation. As an outpatient, we will have the patient start on saw palmetto as this will not affect postural hypotension. We will maintain the Mackenzie catheter until acute renal failure resolves and give him a void trial in the near future. We will follow with you. Thank you for the consult and allowing me to participate in the care of this patient. DO FEI BadilloT/yamilka , 01:40 PM , 01:48 PM
--- NOTE | 2018-07-22 16:47 | MB ---
cc: Jone Gray MD DATE: 07/22/2018 REASON FOR CONSULTATION: Evaluation of ischemic cardiomyopathy. HISTORY OF PRESENT ILLNESS: Joselito Olson is a 78-year-old man who is well known to me. He has atrial fibrillation and a chronic severe ischemic cardiomyopathy. He has had previous brain hemorrhage so he was not on any anticoagulation. He has also had a renal transplant. He has had previous anasarca, which was successfully rescued. He comes in now for an episode of unresponsiveness. The was concerned about whether he could have possibly have had a urinary tract infection. His kidney function was off and so he has received some IV fluids with holding of his diuretics At the time I am seeing the patient, he is alert and I really could not elicit any complaints from him. Urology has requested a Mackenzie for possible hydronephrosis. 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 PAST SURGICAL HISTORY: Includes bypass surgery in 1993, coronary stent in 1997, craniotomy in 2012 with a meningioma removal, penile implant, scalp cancer removal, and bilateral retinal surgery. MEDICATIONS: As charted. ALLERGIES: INCLUDE HALDOL AND TRILEPTAL. FAMILY HISTORY: Noncontributory. SOCIAL HISTORY: He has never smoked. REVIEW OF SYSTEMS: Unobtainable. PHYSICAL EXAMINATION: GENERAL: Elderly, debilitated white male. At the current time, he is sitting upright, in no acute distress. VITAL SIGNS: Charted. He typically runs blood pressures near 90. NEUROLOGIC: He seems to be at his baseline mental status, is mildly confused, but alert. HEENT: Unremarkable. NECK: No obvious JVD today. CHEST: Diminished breath sounds at the left base. CARDIAC: S1, S2, regular rate and rhythm. I do not hear murmurs or gallops. ABDOMEN: Soft. EXTREMITIES: No trace edema. LABORATORY DATA: His creatinine started out of 2.0 and has come down to 1.74 with hydration. Potassium is 3.3. AST and ALT are normal. Hematocrit is 39.7. Chest x-ray shows a left pleural effusion. ASSESSMENT AND PLAN: This is a severely debilitated patient with somewhat end-stage ischemic heart disease. He is not having any current angina. He received some IV fluids with some improvement in his creatinine and probably needs to have those restarted tomorrow. Urology is requesting a Mackenzie. Further therapy to be determined. MD MONIK Bassett/ts , 04:23 PM , 04:31 PM
--- NOTE | 2018-07-22 17:01 | ECG ---
Date Performed: 07/21/2018 Time Performed: 14:50:25 PTAGE: 78 years EKG: ATRIAL FIBRILLATION WITH VENTRICULAR PREMATURE COMPLEXES LOW LIMB LEAD VOLTAGE POSSIBLE OLD ANTERIOR INFARCT Since the previous tracing, no significant change noted ABNORMAL ECG PREVIOUS TRACING : 07/04/2018 10.22 DOCTOR: Jone Gray Interpretating Date/Time 07/22/2018 17:01:05
[2018-07-23] MEDS: Insulin NovoLOG Aspart Correctional Sugar Inj SQ SCH ×3 (05:49→18:43)
[2018-07-23 07:48] LABS: Calcium 7.4 mg/dL (8.5-10.1); Carbon Dioxide 34.4 meq/L (21.0-32.0); Potassium 3.6 meq/L (3.5-5.1)
[2018-07-23 07:57] LABS: Albumin 2.6 g/dL (3.4-5.0); Calcium-Albumin Corrected 8.5 mg/dL (8.5-10.1)
[2018-07-23 10:52] LABS: ABG Base Excess 9.1 mmol/L (-2-2); ABG PCO2 55 mmHg (38-42); ABG PO2 185 mmHg (61-120)
--- NOTE | 2018-07-23 11:14 | P.PNCA ---
Subjective Interval history: No complaints can be elicited Medications and Allergies Active Medications: Active Medications Acetaminophen (Tylenol) 650 mg PO Q4H PRN PRN Reason: Temp > 100.4 Al Hydroxide/Mg Hydroxide (Milk Of Magnesia Liq) 30 ml PO Q12H PRN PRN Reason: Mild Constipation Bisacodyl (Dulcolax Supp) 10 mg RECTAL DAILY PRN PRN Reason: SEVERE CONSITIPATION Dextrose (D50w Vial) 50 ml IV.PUSH UNSCH PRN PRN Reason: PER HYPOGLYCEMIA PROTOCOL Glucagon (Glucagon Inj) 1 mg OTHER PRN PRN PRN Reason: for Hypoglycemia Protocol Levetiracetam 500 mg/ Sodium (Chloride) 105 mls @ 400 mls/hr IV.SIG Q12H [facility] Last Infusion: 07/23/18 08:54 Dose: Infused Linezolid (Zyvox 600 Mg Premix) 300 mls @ 300 mls/hr IV.SIG Q12H [facility] Last Infusion: 07/23/18 07:37 Dose: Infused Ceftriaxone Sodium 1,000 mg/ (Sodium Chloride) 100 mls @ 200 mls/hr IV.SIG Q24H [facility] Last Infusion: 07/22/18 18:50 Dose: Infused Potassium Chloride/Sodium Chloride (Ns + Kcl 20 Meq Inj) 1,000 mls @ 42 mls/hr IV.CONT .[id number] [facility] Last Admin: 07/23/18 11:04 Dose: Not Given Insulin Aspart (Novolog Insulin Correctional Sugar Inj) 0 unit SQ Q6HR [facility]; Protocol Last Admin: 07/23/18 05:49 Dose: 1 unit Lactulose (Lactulose Liq) 30 ml PO DAILY PRN PRN Reason: SEVERE CONSITIPATION Ondansetron HCl (Zofran Inj) 4 mg IV.PUSH Q6H PRN PRN Reason: NAUSEA OR VOMITING Last Admin: 07/22/18 15:33 Dose: 4 mg Sennosides (Senokot) 17.2 mg PO Q12H PRN PRN Reason: Moderate Constipation Sodium Chloride (Ns Flush) 2 ml IV.FLUSH BID [facility] Last Admin: 07/23/18 08:39 Dose: Not Given Sodium Chloride (Ns Flush) 2 ml IV.FLUSH PRN PRN PRN Reason: FLUSH AFTER USING IV ACCESS Allergies Allergy/AdvReac Type Severity Reaction Status Date / Time aspirin Allergy Severe Bleeding Verified 07/04/18 10:43 diclofenac Allergy Severe bleeding Verified 07/04/18 10:43 etodolac Allergy Severe bleeding Verified 07/04/18 10:43 flurbiprofen Allergy Severe bleeding Verified 07/04/18 10:43 haloperidol Allergy Severe Confusion Verified 07/04/18 10:43 ibuprofen Allergy Severe bleeding Verified 07/04/18 10:43 indomethacin Allergy Severe bleeding Verified 07/04/18 10:43 ketoprofen Allergy Severe bleeding Verified 07/04/18 10:43 ketorolac Allergy Severe bleeding Verified 07/04/18 10:43 naproxen Allergy Severe bleeding Verified 07/04/18 10:43 oxaprozin Allergy Severe bleeding Verified 07/04/18 10:43 oxcarbazepine Allergy Severe Bleeding Verified 07/04/18 10:43 Home Medications Medication Instructions Recorded Confirmed Type bethanechol chloride 25 mg PO BID 03/19/18 07/21/18 History calcitriol 0.5 mcg PO DAILY 03/19/18 07/21/18 History finasteride 5 mg PO DAILY 03/19/18 07/21/18 History insulin NPH and regular human 1 sliding scale dose SUBCUT UD 03/19/18 07/21/18 History [Novolin 70/30 U-100 Insulin] isosorbide mononitrate 30 mg PO DAILY 03/19/18 07/21/18 History levetiracetam 500 mg PO BID 03/19/18 07/21/18 History lorazepam [Ativan] 0.5 mg PO DAILY PRN 03/19/18 07/21/18 History melatonin 10 mg PO HS PRN 03/19/18 07/21/18 History metoprolol succinate [Toprol XL] 12.5 mg PO DAILY 03/19/18 07/21/18 History montelukast 10 mg PO QPM 03/19/18 07/21/18 History ondansetron HCl [Zofran] 8 mg PO TID PRN 03/19/18 07/21/18 History spironolactone 25 mg PO DAILY 03/19/18 07/21/18 History torsemide 40 mg PO BID 07/21/18 07/21/18 History Physical Exam Vital signs: Vital Signs 07/22/18 12:00 07/22/18 16:00 07/22/18 20:00 Temperature 97.6 F 97.2 F L 97.9 F Pulse Rate 74 82 77 Respiratory Rate 18 20 18 Blood Pressure 92/55 L 98/53 L 95/56 L Pulse Oximetry 96 97 94 L 07/23/18 00:00 07/23/18 00:23 07/23/18 04:00 Temperature 97.5 F L 97.2 F L Pulse Rate 81 88 Respiratory Rate 18 18 Blood Pressure 90/51 L 92/52 L 107/56 L Pulse Oximetry 93 L 92 L 07/23/18 08:00 07/23/18 09:54 Temperature 97.5 F L Pulse Rate 78 Respiratory Rate 18 Blood Pressure 99/54 L Pulse Oximetry 93 L 99 Intake & Output 07/22/18 07/23/18 07/23/18 18:59 06:59 18:59 Intake Total 805 / 805 525 / 525 405 / 405 Output Total 350 / 350 Balance 805 / 805 175 / 175 405 / 405 Weight 71 kg 71 kg Intake: IV 805 / 805 405 / 405 405 / 405 NS Inj 1,000 ML @ 50 mls/hr IV. 300 / 300 CONT .Q20H [facility] Rx#:[id number] Zyvox 600 mg Premix 300 ML @ 300 / 300 300 / 300 300 / 300 300 mls/hr IV.SIG Q12H [facility] Rx#: [id number] Rocephin Inj 1,000 MG In NS Inj 100 / 100 100 ML @ 200 mls/hr IV.SIG Q24H [facility] Rx#:[id number] Keppra Inj 500 MG In NS Inj 100 105 / 105 105 / 105 105 / 105 ML @ 400 mls/hr IV.SIG Q12H [facility] Rx#:[id number] Oral 120 / 120 Output: Urine 350 / 350 Other: Date of Last Bowel Movement 07/22/18 07/22/18 # Bowel Movements 1 Narrative: Lethargic ? new weakness left side Tele frequent runs of NSVT - some are fast and easily could be causing syncope Chest: decreased BS on right CV S1S2 irr irr 1+ edema - Urinary Catheter Management Indwelling Urethral Catheter Cath placed during this visit: yes Reason for continuing: Chronic Urinary Retention Insertion date: 07/22/18 Insertion time: 16:25 Results 07/22/18 05:20 07/23/18 06:04 Cardiac Enzymes 07/21/18 07/22/18 Range/Units 14:37 05:20 AST 27 11 L (15-37) U/L Lactate Dehydrogenase 326 H (87-241) U/L Troponin I 0.03 (0.02-0.05) ng/mL CBC 07/21/18 07/22/18 Range/Units 14:37 05:20 WBC 9.3 8.5 (4.0-11.0) th/mm3 RBC 4.97 4.64 (4.50-5.90) mil/mm3 Hgb 14.0 13.2 (13.0-17.0) gm/dL Hct 42.4 39.7 (39.0-51.0) % Plt Count 165 D 142 L (150-450) th/mm3 Neut # (Auto) 7.0 6.2 (1.8-7.7) th/mm3 Lymph # (Auto) 0.7 L 0.7 L (1.0-4.8) th/mm3 [place] # (Auto) 1.5 H 1.4 H (0.0-0.9) th/mm3 Eos # (Auto) 0.1 0.1 (0.0-0.4) th/mm3 Baso # (Auto) 0.0 0.0 (0.0-0.2) th/mm3 Comprehensive Metabolic Panel 07/21/18 07/22/18 07/23/18 Range/Units 14:37 05:20 06:04 Sodium 135 L 138 138 (136-145) meq/L Potassium 4.1 3.3 L D 3.6 (3.5-5.1) meq/L Chloride 90 L 94 L 95 L (98-107) meq/L Carbon Dioxide 39.1 H 37.9 H 34.4 H (21.0-32.0) meq/L BUN 45 H 46 H 47 H (7-18) mg/dL Creatinine 2.00 H 1.74 H 1.92 H (0.60-1.30) mg/dL Calcium 7.5 L 7.1 L* 7.4 L* (8.5-10.1) mg/dL AST 27 11 L (15-37) U/L ALT 9 L 10 L (12-78) U/L Alkaline Phosphatase 140 H 127 H (45-117) U/L Total Protein 6.7 6.2 L (6.4-8.2) g/dL Albumin 2.9 L 2.5 L 2.6 L (3.4-5.0) g/dL Intake and Output 07/22/18 07/23/18 07/23/18 22:59 06:59 14:59 Intake Total 505 / 505 120 / 120 405 / 405 Output Total 350 / 350 Balance 505 / 505 -230 / -230 405 / 405 Intake: IV 505 / 505 0 / 0 405 / 405 Zyvox 600 mg Premix 300 ML @ 300 / 300 300 / 300 300 mls/hr IV.SIG Q12H [facility] Rx#: [id number] Rocephin Inj 1,000 MG In NS Inj 100 / 100 100 ML @ 200 mls/hr IV.SIG Q24H [facility] Rx#:[id number] Keppra Inj 500 MG In NS Inj 100 105 / 105 105 / 105 ML @ 400 mls/hr IV.SIG Q12H [facility] Rx#:[id number] Oral 120 / 120 Output: Urine 350 / 350 Other: Date of Last Bowel Movement 07/22/18 07/22/18 # Bowel Movements 1 Weight 71 kg 71 kg - Imaging and Cardiology Imaging: Impressions Chest X-Ray 07/21/18 14:28 CONCLUSION: Moderate pleural effusion with parenchymal consolidation at the left lung base again noted. Abdomen/Pelvis CT 07/21/18 15:33 CONCLUSION: 1. 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 2. Large amount of stool in the rectum. 3. Body wall edema/anasarca. 4. Left greater than right pleural effusions and basilar atelectasis. 5. Atherosclerotic abdominal aorta. No aneurysm. Head CT 07/21/18 15:33 CONCLUSION: 1. No acute intracranial abnormality demonstrated. 2. 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 3. Old right frontal craniotomy with chronic meningeal scarring. 4. Chronic white matter changes. . . Chest X-Ray 07/22/18 06:00 CONCLUSION: 1. Persistent left basilar consolidation/effusion. 2. Interval resolution of the previously seen small right effusion. Assessment and Plan - Assessment (1) Atrial fibrillation Code(s): I48.91 - Unspecified atrial fibrillation Status: Chronic (2) CAD (coronary artery disease) Code(s): I25.10 - Atherosclerotic heart disease of [place] coronary artery without angina pectoris Status: Chronic (3) Cardiomyopathy Code(s): I42.9 - Cardiomyopathy, unspecified Status: Chronic (4) CKD (chronic kidney disease) stage 3, GFR 30-59 ml/min Code(s): N18.3 - Chronic kidney disease, stage 3 (moderate) Status: Chronic (5) Congestive heart failure Code(s): I50.9 - Heart failure, unspecified Status: Acute (6) Debilitated patient Code(s): R53.81 - Other malaise Status: Acute (7) Left bundle branch block Code(s): I44.7 - Left bundle-branch block, unspecified Status: Acute - Plan Spoke with family - they agree with DNR - full supportive care short of cardiac cath/AICD/intubation/ anticoagulation. (1) Atrial fibrillation Qualifiers: (3) Cardiomyopathy Qualifiers:
--- NOTE | 2018-07-23 13:40 | P.PNURO ---
Subjective Patient symptoms today: Pt seen and examined. Not moving left side very well according to and staff. Mcintyre now in place. Objective Vital Signs: Vital Signs 07/22/18 16:00 07/22/18 20:00 07/23/18 00:00 Temperature 97.2 F L 97.9 F 97.5 F L Pulse Rate 82 77 81 Respiratory Rate 20 18 18 Blood Pressure 98/53 L 95/56 L 90/51 L Pulse Oximetry 97 94 L 93 L 07/23/18 00:23 07/23/18 04:00 07/23/18 08:00 Temperature 97.2 F L 97.5 F L Pulse Rate 88 78 Respiratory Rate 18 18 Blood Pressure 92/52 L 107/56 L 99/54 L Pulse Oximetry 92 L 93 L 07/23/18 09:54 07/23/18 12:02 Temperature 97.8 F Pulse Rate 81 Respiratory Rate 16 Blood Pressure 121/56 L Pulse Oximetry 99 99 Intake & Output 07/22/18 07/23/18 07/23/18 18:59 06:59 18:59 Intake Total 805 / 805 525 / 525 405 / 405 Output Total 350 / 350 Balance 805 / 805 175 / 175 405 / 405 Weight 71 kg 71 kg Intake: IV 805 / 805 405 / 405 405 / 405 NS Inj 1,000 ML @ 50 mls/hr IV. 300 / 300 CONT .Q20H [facility] Rx#:[id number] Zyvox 600 mg Premix 300 ML @ 300 / 300 300 / 300 300 / 300 300 mls/hr IV.SIG Q12H [facility] Rx#: [id number] Rocephin Inj 1,000 MG In NS Inj 100 / 100 100 ML @ 200 mls/hr IV.SIG Q24H [facility] Rx#:[id number] Keppra Inj 500 MG In NS Inj 100 105 / 105 105 / 105 105 / 105 ML @ 400 mls/hr IV.SIG Q12H [facility] Rx#:[id number] Oral 120 / 120 Output: Urine 350 / 350 Other: Date of Last Bowel Movement 07/22/18 07/22/18 # Bowel Movements 1 Result Diagrams: 07/22/18 05:20 07/23/18 06:04 Medications and IVs: Active Medications Generic Name Dose Route Start Last Admin Trade Name Freq PRN Reason Stop Dose Admin Acetaminophen 650 mg 07/21/18 18:19 Tylenol PO Q4H PRN Temp > 100.4 Al Hydroxide/Mg Hydroxide 30 ml 07/21/18 18:19 Milk Of Magnesia Liq PO Q12H PRN Mild Constipation Bisacodyl 10 mg 07/21/18 18:19 Dulcolax Supp RECTAL DAILY PRN SEVERE CONSITIPATION Dextrose 50 ml 07/21/18 18:36 D50w Vial IV.PUSH UNSCH PRN PER HYPOGLYCEMIA PROTOCOL Finasteride 5 mg 07/24/18 09:00 Proscar PO DAILY [facility] Glucagon 1 mg 07/21/18 18:36 Glucagon Inj OTHER PRN PRN for Hypoglycemia Protocol Ceftriaxone Sodium 1,000 mg/ 100 mls @ 200 mls/hr 07/21/18 19:00 07/22/18 18: 50 Sodium Chloride IV.SIG Infused Q24H [facility] Infusion Potassium Chloride/Sodium Chloride 1,000 mls @ 42 mls/hr 07/22/18 09:30 07/23 11:04 Ns + Kcl 20 Meq Inj IV.CONT Not Given .[id number] [facility] Insulin Aspart 0 unit 07/22/18 00:00 07/23/18 13:18 Novolog Insulin Correctional Sugar Inj SQ Not Given Q6HR [facility] Protocol Lactulose 30 ml 07/21/18 18:19 Lactulose Liq PO DAILY PRN SEVERE CONSITIPATION Levetiracetam 500 mg 07/23/18 21:00 Keppra PO BID [facility] Metoprolol Succinate 12.5 mg 07/24/18 09:00 Toprol Xl PO DAILY [facility] Ondansetron HCl 4 mg 07/21/18 18:19 07/22/18 15:33 Zofran Inj IV.PUSH 4 mg Q6H PRN Administration NAUSEA OR VOMITING Sennosides 17.2 mg 07/21/18 18:19 Senokot PO Q12H PRN Moderate Constipation Sodium Chloride 2 ml 07/21/18 21:00 07/23/18 08:39 Ns Flush IV.FLUSH Not Given BID [facility] Sodium Chloride 2 ml 07/21/18 18:19 Ns Flush IV.FLUSH PRN PRN FLUSH AFTER USING IV ACCESS Objective Remarks: Abd:soft,nt,nd Mcintyre: Urine clear. Assessment and Plan - Plan 78 yo male with h/o KTX with hydro on US with constipation and ARF Maintain mcintyre catheter for now Will follow creatinine
--- NOTE | 2018-07-23 13:41 | P.PNIM ---
Subjective Interval history: pt family report that he has had left arm/leg paralysis since yesterday. not reported Physical Exam Vital signs: Last Vital Signs Temp 97.8 F 07/23/18 12:02 Pulse 81 07/23/18 12:02 Resp 16 07/23/18 12:02 BP 121/56 L 07/23/18 12:02 Pulse Ox 99 07/23/18 12:02 Narrative: confused cachectic dry mouth lung diminished bases left arm/leg weakness abd s/nt/nabs ext trace edema heart reg Results Labs CBC & Chem 7: 07/22/18 05:20 07/23/18 06:04 Assessment and Plan Assessment (1) Atrial fibrillation: Code(s): I48.91 - Unspecified atrial fibrillation Status: Chronic (2) CAD (coronary artery disease): Code(s): I25.10 - Atherosclerotic heart disease of [place] coronary artery without angina pectoris Status: Chronic (3) Cardiomyopathy: Code(s): I42.9 - Cardiomyopathy, unspecified Status: Chronic (4) CKD (chronic kidney disease) stage 3, GFR 30-59 ml/min: Code(s): N18.3 - Chronic kidney disease, stage 3 (moderate) Status: Chronic (5) Congestive heart failure: Code(s): I50.9 - Heart failure, unspecified Status: Acute (6) Debilitated patient: Code(s): R53.81 - Other malaise Status: Acute (7) Left bundle branch block: Code(s): I44.7 - Left bundle-branch block, unspecified Status: Acute Plan Mr. Olson is a 77-year male with CAD, CHF with reported EF of 20% , hx of hemorrhagic CVA, diabetes, status post craniectomy due to meningioma, skin cancers, Renal osteodystrophy, parathyroidectomy, cardiac cath, laser eye surgery, transplanted kidney in 1998, CABG 5, atrial fibrillation not on anticoagulation due to hemorrhagic stroke history, and dementia. Patient unable to provide meaningful information. 1. systolic chf chronic with recent decompensation pt had diuretic torsemide increased 1 week ago gentle ivf add kcl held diuretic his landman is consulted and evaluate his chf status resume his bb monitor the pleural effusions/resp status. family recently refused drainage 2. syncope ?convulsive syncope could be related to transient hypotension/volume depletion His telemetry shows both sustained and some longer runs of VT which would be a likely culprit. Dr Gray and I spoke to pt and son at bedside. no aggressive intervention. cont rx but DNR telemetry overnight hold diuretic. very gentle ivf overnight and recheck bmp 3. acute/ckd 3. s/p renal transplant evidence of mild hydropnephrosis of transplanted kidney... ?related to severe constipation. cr/gfr improving. consulted urology for the hydro of transplanted kidney bowel moving with lactulose gentle ivf 4. recurrent uti's.. ?related to Urine retention/hydro/constipation broad abx cover and f/u urine cx's. address constipation. bowels moving now urology consulted urine cx no bacteria so far. dc zyvoxx. 5. delirium probably multifactorial. cont gentle ivf appears to have new cva probably yesterday. left side weakness attempted to take for mri but rydert called for loss of consciousness. Dr Gray his landman and I reviewed his tele and it appears pt is having more and more VT which is likely culprit in syncope episodes family agrees with dnr. but cont rx. passed for modified diet resume home meds as tolerated his ammonia is better after lactulose dose. 6. hx afib. unable to tolerate anticoagulation. had hemorragic cva in past. 7.Diabetes ssi. hold scheduled insulin 8.cad 9.dementia 10. chronic pleural effusion. left Progress Note: Quality VTE Deep Vein Thrombosis/Pulmonary Embolism Present on Admission: No _ (1) Atrial fibrillation Qualifiers: Atrial fibrillation type: (2) CAD (coronary artery disease) Qualifiers: Coronary Disease-Associated Artery/Lesion type: [place] vs. transplanted heart: Associated angina: (3) Cardiomyopathy Qualifiers: Cardiomyopathy type: (4) Congestive heart failure Qualifiers: Heart failure type: Heart failure chronicity:
--- NOTE | 2018-07-23 16:04 | MR ---
EXAM DATE: 07/23/2018 3:42 PM EST AGE/SEX: 78 years / Male INDICATIONS: Altered mental status. Left sided weakness. CVA. CLINICAL DATA: This is the patient's subsequent encounter. Patient reports that signs and symptoms h ave been present for 2 days and indicates a pain score of 0/10. MEDICAL/SURGICAL HISTORY: Cardiovascular disease. Congestive heart failure. Diabetes. CABG. Thyroidectomy. Craniotomy. Penile implant. Kidney transplant. COMPARISON: [facility] – [place], CT HEAD W/O CONTRAST, 06/23/2018. . TECHNIQUE: Multiplanar, multisequence examination of the brain was performed without contrast. FINDINGS: Remote postsurgical changes are again noted status post right frontal parietal craniotomy. There is a cystic area along the anterior right temporal lobe which may represent arachnoid cyst. There is ence phalomalacia again noted involving the right frontal lobe. Extensive bilateral atrophic changes are n oted with sulcal and ventricular prominence. These are not significantly changed. There is abnormal s ignal and apparent soft tissue mass along the inner table of the right frontal bone which is unchange d from CTs and may represent a meningioma. There is a a small lacunar type infarct in the right side of the tiana. Cerebellum and midbrain are otherwise unremarkable. No evidence of restricted diffusion or hemorrhage. The study is degraded by motion artifact. On the F LAIR weighted images extensive chronic small vessel ischemic changes are noted in the deep white jany er increased signal. CONCLUSION: 1. No acute hemorrhage, mass or evidence of acute infarction. 2. Remote postsurgical changes status post right craniotomy with areas of encephalomalacia. There is a cystic structure along the anterior right temporal lobe which may represent an arachnoid cyst. 3. Abnormal tissue mass along the inner table of the right frontal bone which may represent a mening ioma. 4. Small lacunar infarct right side of the tiana. 5. The study is degraded by motion artifact. Electronically signed by: Russell Qiu MD Board Certified Radiologist 07/23/2018 4:03 PM EST
--- NOTE | 2018-07-23 16:34 | P.CONPAL ---
Consult Service: Palliative Care Requesting Physician: Doug Tsang Reason for Consult: a. To assist with evaluation and management of symptoms including: Shortness of breath, altered mental status, debility b. To assist medical decision maker(s) with: better understanding of current medical conditions; weighing benefits/burdens of medical treatment options; making medical treatment decisions. Primary Care Provider: Luis Angel Beasley MD History of Present Illness History of Present Illness: Mr. Olson is a 78-year-old male with a past medical history significant for coronary artery disease s/p CABG x5 vessels, congestive heart failure with reported ejection fraction of 20%, atrial fibrillation, chronic ischemic cardiomyopathy, hemorrhagic CVA, seizures, diabetes mellitus, craniotomy after subdural hematoma from a meningioma, skin cancer, renal osteodystrophy, kidney transplant in 1998, urinary tract infection, recurrent pleural effusions and dementia. Patient was brought to the emergency room on 07/21/18 for evaluation of altered mental status after spouse found patient slumped forward in his chair for about 30 seconds with loss of consciousness and left facial twitching. Patient was hospitalized in June 2018 and was treated for urinary tract infection and his most recent hospitalization was on 07/04/18 for altered mentation. ER course: * Vital signs: Temperature 97.8F, pulse 73, respirations 23, BP 99/57, O2 saturation 99% * Laboratory workup revealing WBC 9.3, hemoglobin 14.0, hematocrit 42.4, platelet count 165, sodium 135, potassium 4.1, BUN/creatinine 45/2.00, random glucose 220, calcium 7.5, total bilirubin 1.4, AST 27, ALT 9, ammonia 66, troponin 0 0.03, total protein 6.7, albumin 2.9 * EKG showing atrial fibrillation with ventricular premature complexes. * Chest x-ray showing moderate pleural effusion with parenchymal consolidation in the left lung base. * Head CT with no acute intracranial abnormality. Chronic right greater than left bifrontal and bitemporal encephalomalacia, old right frontal craniotomy with chronic meningeal scarring and chronic white matter changes. * CT abdomen/pelvis showed hydronephrosis of the transplant kidney in the right iliac fossa, uncertain etiology. Large amount of stool in the rectum. Anasarca. Left greater than right pleural effusions and basilar atelectasis and atherosclerotic abdominal aorta. No aneurysm * Urinalysis positive for large leukocyte esterase- culture yeast species * Lorazepam administered in the ER for possible seizures * Vancomycin administered. * Patient admitted for further evaluation and treatment Urology Dr. Lee consulted on 07/22/18 for evaluation and management of patient with history of kidney transplant and hydronephrosis, recommended placement of a Mackenzie catheter and most likely start patient on [facility] outpatient. Cardiology Dr. Gray on consulted on 07/22/18 for evaluation and management of a patient with ischemic cardiomyopathy. According to cardiology progress note on 07/23/18, "family agreed to DNR -full supportive care short of cardiac cath/AICD/intubation/anticoagulation". Patient's condition worsened with left-sided paralysis on 07/22/18. MRI head on 07/23/18 showing no acute hemorrhage, mass or evidence of acute infection. Remote postsurgical changes. There is cystic structure along the anterior right temporal lobe which may represent an arachnoid cyst. Abnormal tissue mass along the inner table of the right frontal bone which may represent meningioma. Small lacunar infarct right side of the tiana.Patient was started on lactulose to correct ammonia level and for constipation. Ammonia level on 07/23/18 slightly improved but still high. ABG results 07/23/18 showing pH 7.41, PCO2 55, PO2 185, HCO3 34, base excess 9.1 , O2 saturation 96% on 6 L nasal cannula. Clinical course complicated with postural hypotension, lethargy, altered mental status and debility. Palliative care consulted to assist with symptom management and establishment of goals of medical treatment. Patient seen and examined in the presence of his Whitney Pickard and daughter Sung Thomason. Patient is lethargic, nonverbal and minimally responsive. Patient does not appear to be in any pain or discomfort at this time. Introduced palliative care and its role in symptom management and establishment of goals of medical treatment. Briefly reviewed events leading to this hospitalization. Obtained psychosocial and past medical history. According to patient's spouse, patient has never completed advanced directives. Patient spouse mentioned that she has had communication with all physicians and according to her understanding she feels that patient`s current presentation is the best it will be. Given patient`s sudden neuro status change and ongoing multiple comorbidities she also feels that patient will most likely continue to deteriorate and she would now want to transition to comfort care through hospice services. Patient spouse confirmed that she wants patient to be a DNR. Patient spouse expresses that she would want patient to be discharged home with hospice services though she seems indecisive of when she would want patient to be discharged home. She is hopeful that the patient`s status might change for the better overnight, though she seems to understand that it is mostly unlikely. Patient's daughter appropriately tearful during conversation. With patient`s spouse permission, hospice consult has been placed with tentative plan to meet with them tomorrow. Provided family with palliative care contact information. Case discussed with bedside RN. . Function/Cognitive Trajectory: Patient resides at home with his spouse. Prior to this hospitalization, patient ambulated with a Rollator. Patient has a history of frequent falls. Patient required standby to minimum assist with ADLs. Patient has had multiple hospitalizations since September 2017. x5 hospitalizations in 2017. June 2018, patient was admitted for altered mental status and his recent hospitalization was in July 2018 for possible pneumonia acute kidney injury and syncopal X episode. According to patient spouse, patient was able to verbalize his needs. Currently patient is nonverbal. . Review of Systems Constitutional: Reports lack of energy, Reports weakness, Reports weight loss Eyes: Denies bulging eyes, Denies double vision, Denies loss of vision Ears, Nose, Mouth, and Throat: Reports poor balance, Denies abnormal hearing, Denies nasal congestion Cardiovascular: Reports fainting (Syncopal episodes.), Reports irregular heart rhythm (History of atrial fibrillation), Reports shortness of breath, Reports shortness of breath when lying down Gastrointestinal: Reports abdominal pain, Reports constipation, Denies bright, red blood in stools, Denies vomiting Genitourinary: Reports difficulty urinating, Reports urinary frequency, Denies blood in urine Musculoskeletal: Reports decreased muscle mass Skin/Breast: Denies new lesions, Denies unusual bruising Neurologic: Reports confusion, Reports fainting (Syncopal episode), Reports frequent falls, Reports memory loss (History of dementia), Reports other ( Currently nonverbal) Psychiatric: Reports confusion, Reports memory loss Endocrine: Reports increased urination Hematologic/Lymphatic: Denies easy bruising ROS obtained from family, electronic medical records and clinical observation. . [facility] - History History Provided By: Family Member, Significant Other - Medical History Medical History: Medical History (Last Updated 07/23/18 @ 16:26 by Susan Castro) CAD (coronary artery disease) CHF (congestive heart failure) CVA (cerebral vascular accident) Chronic kidney disease, stage III (moderate) Diabetes Hemangioma SHAUNA (renal osteodystrophy) Retinopathy Skin cancer Subdural hematoma (Resolved) - Surgical History Surgical History: Surgical History (Last Updated 07/23/18 @ 16:28 by Susan Castro) History of brain surgery (Resolved) H/O parathyroidectomy History of YAG laser capsulotomy of lens Status post laser cataract surgery of both eyes History of cardiac cath (Resolved) History of penile implant (Resolved) Kidney transplanted (Resolved) S/P CABG x 5 (Resolved) - Family History Family History: Family History (Last Reviewed 07/22/18 @ 09:25 by Beena Navarrete) Mother Alzheimer's dementia Hypertension Father Lymphoma - Social History I have reviewed the patient's Social History: Yes - Tobacco History Second Hand Smoke Exposure: No Tobacco Use In Past 30 Days: No Smoking Status: Never smoker - Alcohol History How Often Do You Have a Drink Containing Alcohol: Never - Substance Use History Substance History: No History of Abuse - Travel History History of Recent Travel: No Recent Travel in the [place] Within the Last 8 Weeks: No Recent Travel Out of the Country Within the Last 8 Weeks: No - Immunization History Tetanus Immunization: <5 Years Medications and Allergies Active Medications: Active Medications Acetaminophen (Tylenol) 650 mg PO Q4H PRN PRN Reason: Temp > 100.4 Al Hydroxide/Mg Hydroxide (Milk Of Magnmarysol Liq) 30 ml PO Q12H PRN PRN Reason: Mild Constipation Bisacodyl (Dulcolax Supp) 10 mg RECTAL DAILY PRN PRN Reason: SEVERE CONSITIPATION Dextrose (D50w Vial) 50 ml IV.PUSH UNSCH PRN PRN Reason: PER HYPOGLYCEMIA PROTOCOL Finasteride (Proscar) 5 mg PO DAILY KIAN Glucagon (Glucagon Inj) 1 mg OTHER PRN PRN PRN Reason: for Hypoglycemia Protocol Ceftriaxone Sodium 1,000 mg/ (Sodium Chloride) 100 mls @ 200 mls/hr IV.SIG Q24H KIAN Last Infusion: 07/22/18 18:50 Dose: Infused Potassium Chloride/Sodium Chloride (Ns + Kcl 20 Meq Inj) 1,000 mls @ 42 mls/hr IV.CONT .[id number] KIAN Last Admin: 07/23/18 11:04 Dose: Not Given Levetiracetam 500 mg/ Sodium (Chloride) 105 mls @ 400 mls/hr IV.SIG Q12H KIAN Insulin Aspart (Novolog Insulin Correctional Sugar Inj) 0 unit SQ Q6HR [facility]; Protocol Last Admin: 07/23/18 13:18 Dose: Not Given Lactulose (Lactulose Liq) 30 ml PO DAILY PRN PRN Reason: SEVERE CONSITIPATION Metoprolol Succinate (Toprol Xl) 12.5 mg PO DAILY [facility] Ondansetron HCl (Zofran Inj) 4 mg IV.PUSH Q6H PRN PRN Reason: NAUSEA OR VOMITING Last Admin: 07/22/18 15:33 Dose: 4 mg Sennosides (Senokot) 17.2 mg PO Q12H PRN PRN Reason: Moderate Constipation Sodium Chloride (Ns Flush) 2 ml IV.FLUSH BID KIAN Last Admin: 07/23/18 08:39 Dose: Not Given Sodium Chloride (Ns Flush) 2 ml IV.FLUSH PRN PRN PRN Reason: FLUSH AFTER USING IV ACCESS Allergies Allergy/AdvReac Type Severity Reaction Status Date / Time aspirin Allergy Severe Bleeding Verified 07/04/18 10:43 diclofenac Allergy Severe bleeding Verified 07/04/18 10:43 etodolac Allergy Severe bleeding Verified 07/04/18 10:43 flurbiprofen Allergy Severe bleeding Verified 07/04/18 10:43 haloperidol Allergy Severe Confusion Verified 07/04/18 10:43 ibuprofen Allergy Severe bleeding Verified 07/04/18 10:43 indomethacin Allergy Severe bleeding Verified 07/04/18 10:43 ketoprofen Allergy Severe bleeding Verified 07/04/18 10:43 ketorolac Allergy Severe bleeding Verified 07/04/18 10:43 naproxen Allergy Severe bleeding Verified 07/04/18 10:43 oxaprozin Allergy Severe bleeding Verified 07/04/18 10:43 oxcarbazepine Allergy Severe Bleeding Verified 07/04/18 10:43 Home Medications Medication Instructions Recorded Confirmed Type bethanechol chloride 25 mg PO BID 03/19/18 07/21/18 History calcitriol 0.5 mcg PO DAILY 03/19/18 07/21/18 History finasteride 5 mg PO DAILY 03/19/18 07/21/18 History insulin NPH and regular human 1 sliding scale dose SUBCUT UD 03/19/18 07/21/18 History [Novolin 70/30 U-100 Insulin] isosorbide mononitrate 30 mg PO DAILY 03/19/18 07/21/18 History levetiracetam 500 mg PO BID 03/19/18 07/21/18 History lorazepam [Ativan] 0.5 mg PO DAILY PRN 03/19/18 07/21/18 History melatonin 10 mg PO HS PRN 03/19/18 07/21/18 History metoprolol succinate [Toprol XL] 12.5 mg PO DAILY 03/19/18 07/21/18 History montelukast 10 mg PO QPM 03/19/18 07/21/18 History ondansetron HCl [Zofran] 8 mg PO TID PRN 03/19/18 07/21/18 History spironolactone 25 mg PO DAILY 03/19/18 07/21/18 History torsemide 40 mg PO BID 07/21/18 07/21/18 History Advance Directives Living Will: No Healthcare Surrogate: No Health Care Surrogate Name and Number: HCP: Spouse-Whitney [phone] Power of Search Engine Optimization Manager: No Documented care wishes: Patient has never completed advanced directives. . Today's verbally stated goals: Patient is nonverbal. . Family/friends goals: Patient spouse (HCP) would like to transition to comfort care with hospice though somewhat hopeful that patient might improve overnight. . Ethical and Legal Issues: None identified at this time. . Physical Exam Vital Signs: Vital Signs - 24 hr 07/22/18 20:00 07/23/18 00:00 07/23/18 00:23 Temperature 97.9 F 97.5 F L Pulse Rate 77 81 Respiratory Rate 18 18 Blood Pressure 95/56 L 90/51 L 92/52 L Pulse Oximetry 94 L 93 L 07/23/18 04:00 07/23/18 08:00 07/23/18 09:54 Temperature 97.2 F L 97.5 F L Pulse Rate 88 78 Respiratory Rate 18 18 Blood Pressure 107/56 L 99/54 L Pulse Oximetry 92 L 93 L 99 07/23/18 12:02 Temperature 97.8 F Pulse Rate 81 Respiratory Rate 16 Blood Pressure 121/56 L Pulse Oximetry 99 I&O: Intake & Output 07/21/18 07/22/18 07/23/18 07/24/18 06:59 06:59 06:59 06:59 Intake Total 1505 / 1505 1330 / 1330 405 / 405 Output Total 300 / 300 350 / 350 Balance 1205 / 1205 980 / 980 405 / 405 Weight 154 kg 71 kg Physical Exam: CONSTITUTIONAL/GENERAL: This is an elderly, frail patient in mild respiratory distress. TUBES/LINES/DRAINS: PIV, Mackenzie catheter, nasal cannula SKIN: No jaundice, rashes, or lesions. Ecchymoses on upper extremities. No wounds seen anteriorly. Skin temperature appropriate. Not diaphoretic. HEAD: Atraumatic. Normocephalic. EYES: Pupils round and reactive to light. No scleral icterus. No injection or drainage. Fundi not examined. ENT: Hearing grossly normal. Nose without bleeding or purulent drainage. Dry oral mucosa NECK: Trachea midline. Supple, nontender. CARDIOVASCULAR: Irregular regular rate and rhythm. No JVD. Peripheral pulses symmetric. RESPIRATORY/CHEST: Symmetric, unlabored respirations. Diminished breath sounds. No rhonchi/wheezing. Mouth breathing. GASTROINTESTINAL: Abdomen soft, non-tender, nondistended. No guarding. Bowel sounds present. GENITOURINARY: Without palpable bladder distension. Mackenzie catheter in place. MUSCULOSKELETAL: Extremities without clubbing, cyanosis, or edema. No joint tenderness or effusion noted. No calf tenderness. No mottling or clubbing. LYMPHATICS: Did not assess. NEUROLOGICAL: Briefly opens eyes. Not verbalizing. Not following simple commands. Left-sided weakness. PSYCHIATRIC: No obvious anxiety/depression. no apparent hallucinations or other psychotic thought process. . Diagnostic Tests Laboratory: Laboratory Results - last 72 hr 07/21/18 07/21/18 07/21/18 14:37 14:37 15:35 WBC 9.3 RBC 4.97 Hgb 14.0 Hct 42.4 MCV 85.3 MCH 28.1 MCHC 32.9 RDW 18.5 H Plt Count 165 D MPV 8.6 Neut % (Auto) 75.5 H Lymph % (Auto) 7.1 L [place] % (Auto) 15.8 H Eos % (Auto) 1.2 Baso % (Auto) 0.4 Neut # (Auto) 7.0 Lymph # (Auto) 0.7 L [place] # (Auto) 1.5 H Eos # (Auto) 0.1 Baso # (Auto) 0.0 WBC Differential . Differential Comment Auto diff final Puncture Site Patient Temperature O2 Saturation ABG pH ABG pCO2 ABG pO2 ABG HCO3 ABG O2 Content ABG Base Excess ABG Methemoglobin Edy Test Hemoglobin Carboxyhemoglobin O2 Delivery Device Liter Flow Critical Value Sodium 135 L Potassium 4.1 Chloride 90 L Carbon Dioxide 39.1 H Anion Gap 6 BUN 45 H Creatinine 2.00 H Estimated GFR 32 L POC Glucose Random Glucose 220 H Lactic Acid Calcium 7.5 L Calcium Adj for Albumin Magnesium 1.8 Total Bilirubin 1.4 H AST 27 ALT 9 L Alkaline Phosphatase 140 H Ammonia 66 H Lactate Dehydrogenase 326 H Troponin I 0.03 Total Protein 6.7 Albumin 2.9 L Urine Color Urine Clarity Urine pH Ur Specific [place] Urine Protein Urine Glucose (UA) Urine Ketones Urine Occult Blood Urine Nitrate Urine Bilirubin Urine Urobilinogen Ur Leukocyte Esterase Urine WBC Urine WBC Clumps Urine Bacteria Hyaline Casts Urine Mucus Micro UA Comment Ur Microscopic Review Urine Culture Comments 07/21/18 07/21/18 07/22/18 16:22 16:35 01:06 WBC RBC Hgb Hct MCV MCH MCHC RDW Plt Count MPV Neut % (Auto) Lymph % (Auto) [place] % (Auto) Eos % (Auto) Baso % (Auto) Neut # (Auto) Lymph # (Auto) [place] # (Auto) Eos # (Auto) Baso # (Auto) WBC Differential Differential Comment Puncture Site Patient Temperature O2 Saturation ABG pH ABG pCO2 ABG pO2 ABG HCO3 ABG O2 Content ABG Base Excess ABG Methemoglobin Edy Test Hemoglobin Carboxyhemoglobin O2 Delivery Device Liter Flow Critical Value Sodium Potassium Chloride Carbon Dioxide Anion Gap BUN Creatinine Estimated GFR POC Glucose 227 H Random Glucose Lactic Acid 1.8 Calcium Calcium Adj for Albumin Magnesium Total Bilirubin AST ALT Alkaline Phosphatase Ammonia Lactate Dehydrogenase Troponin I Total Protein Albumin Urine Color Yellow Urine Clarity Hazy H Urine pH 6.0 Ur Specific [place] 1.009 Urine Protein Negative Urine Glucose (UA) Negative Urine Ketones Negative Urine Occult Blood Negative Urine Nitrate Negative Urine Bilirubin Negative Urine Urobilinogen Less than 2 Ur Leukocyte Esterase Large H Urine WBC 68 H Urine WBC Clumps Few H Urine Bacteria Rare H Hyaline Casts 7 Urine Mucus Few H Micro UA Comment Cath-culture ind Ur Microscopic Review Not Reportable Urine Culture Comments Cath-cult indicated 07/22/18 07/22/18 07/22/18 05:17 05:20 05:20 WBC 8.5 RBC 4.64 Hgb 13.2 Hct 39.7 MCV 85.6 MCH 28.4 MCHC 33.2 RDW 18.8 H Plt Count 142 L MPV 8.5 Neut % (Auto) 73.6 H Lymph % (Auto) 8.6 L [place] % (Auto) 16.4 H Eos % (Auto) 1.0 Baso % (Auto) 0.4 Neut # (Auto) 6.2 Lymph # (Auto) 0.7 L [place] # (Auto) 1.4 H Eos # (Auto) 0.1 Baso # (Auto) 0.0 WBC Differential . Differential Comment Auto diff final Puncture Site Patient Temperature O2 Saturation ABG pH ABG pCO2 ABG pO2 ABG HCO3 ABG O2 Content ABG Base Excess ABG Methemoglobin Edy Test Hemoglobin Carboxyhemoglobin O2 Delivery Device Liter Flow Critical Value Sodium 138 Potassium 3.3 L D Chloride 94 L Carbon Dioxide 37.9 H Anion Gap 6 BUN 46 H Creatinine 1.74 H Estimated GFR 38 L POC Glucose 152 H Random Glucose 157 H Lactic Acid Calcium 7.1 L* Calcium Adj for Albumin 8.3 L Magnesium Total Bilirubin 1.0 AST 11 L ALT 10 L Alkaline Phosphatase 127 H Ammonia Lactate Dehydrogenase Troponin I Total Protein 6.2 L Albumin 2.5 L Urine Color Urine Clarity Urine pH Ur Specific [place] Urine Protein Urine Glucose (UA) Urine Ketones Urine Occult Blood Urine Nitrate Urine Bilirubin Urine Urobilinogen Ur Leukocyte Esterase Urine WBC Urine WBC Clumps Urine Bacteria Hyaline Casts Urine Mucus Micro UA Comment Ur Microscopic Review Urine Culture Comments 07/22/18 07/22/18 07/22/18 05:20 11:24 18:10 WBC RBC Hgb Hct MCV MCH MCHC RDW Plt Count MPV Neut % (Auto) Lymph % (Auto) [place] % (Auto) Eos % (Auto) Baso % (Auto) Neut # (Auto) Lymph # (Auto) [place] # (Auto) Eos # (Auto) Baso # (Auto) WBC Differential Differential Comment Puncture Site Patient Temperature O2 Saturation ABG pH ABG pCO2 ABG pO2 ABG HCO3 ABG O2 Content ABG Base Excess ABG Methemoglobin Edy Test Hemoglobin Carboxyhemoglobin O2 Delivery Device Liter Flow Critical Value Sodium Potassium Chloride Carbon Dioxide Anion Gap BUN Creatinine Estimated GFR POC Glucose 156 H 198 H Random Glucose Lactic Acid Calcium Calcium Adj for Albumin Magnesium Total Bilirubin AST ALT Alkaline Phosphatase Ammonia 64 H Lactate Dehydrogenase Troponin I Total Protein Albumin Urine Color Urine Clarity Urine pH Ur Specific [place] Urine Protein Urine Glucose (UA) Urine Ketones Urine Occult Blood Urine Nitrate Urine Bilirubin Urine Urobilinogen Ur Leukocyte Esterase Urine WBC Urine WBC Clumps Urine Bacteria Hyaline Casts Urine Mucus Micro UA Comment Ur Microscopic Review Urine Culture Comments 07/22/18 07/23/18 07/23/18 23:46 05:49 06:04 WBC RBC Hgb Hct MCV MCH MCHC RDW Plt Count MPV Neut % (Auto) Lymph % (Auto) [place] % (Auto) Eos % (Auto) Baso % (Auto) Neut # (Auto) Lymph # (Auto) [place] # (Auto) Eos # (Auto) Baso # (Auto) WBC Differential Differential Comment Puncture Site Patient Temperature O2 Saturation ABG pH ABG pCO2 ABG pO2 ABG HCO3 ABG O2 Content ABG Base Excess ABG Methemoglobin Edy Test Hemoglobin Carboxyhemoglobin O2 Delivery Device Liter Flow Critical Value Sodium 138 Potassium 3.6 Chloride 95 L Carbon Dioxide 34.4 H Anion Gap 9 BUN 47 H Creatinine 1.92 H Estimated GFR 34 L POC Glucose 249 H 191 H Random Glucose 190 H Lactic Acid Calcium 7.4 L* Calcium Adj for Albumin 8.5 Magnesium Total Bilirubin AST ALT Alkaline Phosphatase Ammonia Lactate Dehydrogenase Troponin I Total Protein Albumin 2.6 L Urine Color Urine Clarity Urine pH Ur Specific [place] Urine Protein Urine Glucose (UA) Urine Ketones Urine Occult Blood Urine Nitrate Urine Bilirubin Urine Urobilinogen Ur Leukocyte Esterase Urine WBC Urine WBC Clumps Urine Bacteria Hyaline Casts Urine Mucus Micro UA Comment Ur Microscopic Review Urine Culture Comments 07/23/18 07/23/18 07/23/18 10:38 10:40 11:41 WBC RBC Hgb Hct MCV MCH MCHC RDW Plt Count MPV Neut % (Auto) Lymph % (Auto) [place] % (Auto) Eos % (Auto) Baso % (Auto) Neut # (Auto) Lymph # (Auto) [place] # (Auto) Eos # (Auto) Baso # (Auto) WBC Differential Differential Comment Puncture Site Left radial Patient Temperature 98.6 O2 Saturation 96 ABG pH 7.41 ABG pCO2 55 H* ABG pO2 185 H ABG HCO3 34 H ABG O2 Content 19.5 ABG Base Excess 9.1 H ABG Methemoglobin 1.1 Edy Test Present Hemoglobin 14.1 Carboxyhemoglobin 2.0 O2 Delivery Device Nasal cannula Liter Flow 6.00 Critical Value Yes Sodium Potassium Chloride Carbon Dioxide Anion Gap BUN Creatinine Estimated GFR POC Glucose 176 H Random Glucose Lactic Acid Calcium Calcium Adj for Albumin Magnesium Total Bilirubin AST ALT Alkaline Phosphatase Ammonia 35 H Lactate Dehydrogenase Troponin I Total Protein Albumin Urine Color Urine Clarity Urine pH Ur Specific [place] Urine Protein Urine Glucose (UA) Urine Ketones Urine Occult Blood Urine Nitrate Urine Bilirubin Urine Urobilinogen Ur Leukocyte Esterase Urine WBC Urine WBC Clumps Urine Bacteria Hyaline Casts Urine Mucus Micro UA Comment Ur Microscopic Review Urine Culture Comments 07/23/18 12:34 WBC RBC Hgb Hct MCV MCH MCHC RDW Plt Count MPV Neut % (Auto) Lymph % (Auto) [place] % (Auto) Eos % (Auto) Baso % (Auto) Neut # (Auto) Lymph # (Auto) [place] # (Auto) Eos # (Auto) Baso # (Auto) WBC Differential Differential Comment Puncture Site Patient Temperature O2 Saturation ABG pH ABG pCO2 ABG pO2 ABG HCO3 ABG O2 Content ABG Base Excess ABG Methemoglobin Edy Test Hemoglobin Carboxyhemoglobin O2 Delivery Device Liter Flow Critical Value Sodium Potassium Chloride Carbon Dioxide Anion Gap BUN Creatinine Estimated GFR POC Glucose 182 H Random Glucose Lactic Acid Calcium Calcium Adj for Albumin Magnesium Total Bilirubin AST ALT Alkaline Phosphatase Ammonia Lactate Dehydrogenase Troponin I Total Protein Albumin Urine Color Urine Clarity Urine pH Ur Specific [place] Urine Protein Urine Glucose (UA) Urine Ketones Urine Occult Blood Urine Nitrate Urine Bilirubin Urine Urobilinogen Ur Leukocyte Esterase Urine WBC Urine WBC Clumps Urine Bacteria Hyaline Casts Urine Mucus Micro UA Comment Ur Microscopic Review Urine Culture Comments Result Diagrams: 07/22/18 05:20 07/24/18 05:35 Microbiology: Microbiology 07/21/18 16:22 Urine Culture - Preliminary Catheterized Urine Yeast species Imaging: Abdomen/Pelvis CT 07/21/18 15:33 CONCLUSION: 1. 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 2. Large amount of stool in the rectum. 3. Body wall edema/anasarca. 4. Left greater than right pleural effusions and basilar atelectasis. 5. Atherosclerotic abdominal aorta. No aneurysm. Head CT 07/21/18 15:33 CONCLUSION: 1. No acute intracranial abnormality demonstrated. 2. 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 3. Old right frontal craniotomy with chronic meningeal scarring. 4. Chronic white matter changes. . . Chest X-Ray 07/22/18 06:00 CONCLUSION: 1. Persistent left basilar consolidation/effusion. 2. Interval resolution of the previously seen small right effusion. Head MRI 07/23/18 13:46 CONCLUSION: 1. No acute hemorrhage, mass or evidence of acute infarction. 2. Remote postsurgical changes status post right craniotomy with areas of encephalomalacia. There is a cystic structure along the anterior right temporal lobe which may represent an arachnoid cyst. 3. Abnormal tissue mass along the inner table of the right frontal bone which may represent a meningioma. 4. Small lacunar infarct right side of the tiana. 5. The study is degraded by motion artifact. Patient/Family Conference Family Conference Location: Bedside Issues Discussed: * Palliative care role, purpose, approach * Additional medical, psychosocial, and spiritual history * Patients general health, functional status, and cognitive changes in the months leading up to the current hospitalization * Patient/family understanding of the current medical problems * Patient/family understanding of prognosis * Patients goals of care as best understood from advance directives and/or conversations and/or values * Current medical treatment options and benefits/burdens of those options * Likely scenarios comparing ongoing aggressive care with a transition to comfort measures only * Questions answered to the best of my ability * Introduced hospice philosophy and benefits. * Palliative care contact information provided Assessment and Plan - Disease Oriented Problem List (1) Systolic congestive heart failure (2) Syncope (3) Chronic kidney disease (4) Recurrent urinary tract infection (5) Atrial fibrillation (6) Diabetes mellitus (7) Dementia - Symptom Scale (1) Shortness of breath Comment: History of CHF. (2) Altered mental status 0-10 Scale: Unable to quantify Comment: History of dementia, hemorrhagic CVA and meningioma. Altered mental status most likely from UTI, high ammonia level. (3) Debility 0-10 Scale: Unable to quantify Comment: Progressive. Multiple hospitalizations in the past 9 months. Pertinent Non-Medical Issues: Psychosocial: Patient is originally from [place]. He moved to [place] the last 20 years ago. April of this year ricci patient's 50th anniversary with his current Melly Olson. 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 Patient and his he has 2 adult children, a son and a daughter. Patient never served in the . Spiritual: Declined wire communications engineer services. Legal: Patient never completed advanced directives. Ethical issues impacting care: None identified at this time. . Important Contacts: Spouse-Melly Olson-[phone] Daughter-Sung ThomasonIjnfl-[phone] . Prognosis: Mr. Olson is a 78-year-old male with a past medical history significant for coronary artery disease s/p CABG x5 vessels, congestive heart failure with reported ejection fraction of 20%, atrial fibrillation, chronic ischemic cardiomyopathy, hemorrhagic CVA, seizures, diabetes mellitus, craniotomy after subdural hematoma from a meningioma, skin cancer, renal osteodystrophy, kidney transplant in 1998, urinary tract infection, recurrent pleural effusions and dementia. Patient was brought to the emergency room on 07/21/18 for evaluation of altered mental status after spouse found patient slumped forward in his chair for about 30 seconds with loss of consciousness and left facial twitching. Given patient's multiple ongoing comorbidities, multiple hospitalizations and debility, patient remains at high risk for further complications, deterioration and decline. . Code Status: No Code DNR Plan: PLAN: Legal decision maker: Patient is lethargic, nonverbal. Has a history of dementia. He is . It is unknown whether patient will regain capacity to participate in medical decision making. According to [place] statutes, patient spouse Whitney Pickard would serve as his health care decision maker proxy. Goals: Patient`s spouse with the support of their daughter would like to transition to comfort oriented care through hospice services. Tentative meeting with hospice is scheduled for tomorrow 07/24/18. Patient`s spouse would like to have an opportunity to speak to physicians first before signing patient up for hospice. CODE STATUS: No code DNR/DNI SYMPTOMS: * Shortness of breath: History of CHF and recurrent pleural effusions. Recent imaging is showing bilateral pleural effusions with on the left side and basilar atelectasis. Patient is currently on 6 L nasal cannula with O2 sats in the low to high 90s. No recommendations. * Altered mental status:History of dementia, hemorrhagic CVA and meningioma. Altered mental status most likely from UTI, high ammonia level. Lactulose has been administered with slight improvement of ammonia level. ABG results on 07/23 showing high PCO2 level. MRI head 07/23/17 showing no acute abnormality.Patient is currently lethargic and nonverbal. Family opted for comfort oriented care. No recommendations * Debility: Progressive. Patient has had multiple hospitalizations since September 2017 and is very debilitated. Family have decided to forego any further aggressive treatment and transition to comfort oriented care. Palliative care will continue to follow the patient during hospital course as condition evolves, to assist patient/decision-maker with understanding of their medical conditions, weighing benefits/burdens of treatment options, for clarification of goals of treatment. Additionally will assist with any symptoms of palliative concern Appreciation Thank you for the opportunity to participate in the care of Joselito Olson. Attestation Attestation: To help prompt me to consider important information that might be impacting today's encounter and assessment, information from prior notes written by myself or my colleagues may have been "brought forward" into today's note. My signature on this note, however, is an attestation that I personally performed the exam, history, and/or decision-making noted today, and, unless otherwise indicated, the interactions with patient, family, and staff as well as the review of records all occurred today. I also attest that the listed assessment and stated plan reflect my best clinical judgment today based on the combination of historical information, prior notes, and today's exam/ interactions. When time spent is documented, it refers only to time spent today by the signer, or if indicated, combined time spent today by collaborating physician/nurse practitioner.
[2018-07-23] MEDS ORDERED: levETIRAcetam 500 MG Tablet PO SCH (21:00)
[2018-07-24] MEDS: Insulin NovoLOG Aspart Correctional Sugar Inj SQ SCH ×4 (00:39→18:45)
[2018-07-24 07:51] LABS: Calcium 7.3 mg/dL (8.5-10.1); Carbon Dioxide 29.7 meq/L (21.0-32.0); Potassium 3.9 meq/L (3.5-5.1)
[2018-07-24 08:03] LABS: Albumin 2.6 g/dL (3.4-5.0); Calcium-Albumin Corrected 8.4 mg/dL (8.5-10.1)
[2018-07-24] MEDS ORDERED: Finasteride 5 MG Tablet PO SCH (09:00)
--- NOTE | 2018-07-24 09:57 | P.PNIM ---
Subjective Interval history: Patient is actively having seizure activity during EEG in the right frontal lobe per the hitch technician He received a dose if IV Ativan which decreased the seizure activity for a bit but not for long Pt has not been verbally responding since yesterday per the pts . The family is set to meet with Hospice this morning O2 sats are in the high 80's on 1 L of supplemental O2 UOP is decreasing Physical Exam Vital signs: Last Vital Signs Temp 97.7 F 07/24/18 08:00 Pulse 90 07/24/18 08:00 Resp 16 07/24/18 08:00 BP 124/60 07/24/18 08:00 Pulse Ox 94 L 07/24/18 08:00 Narrative: General: Lethargic, unarousable, cachectic Chest: Poor inspiratory effort, diminished bases Cardiac: Regular Abd: soft, cachectic Ext: trace edema Results Labs CBC & Chem 7: 07/22/18 05:20 07/24/18 05:35 Imaging Chest X-Ray 07/21/18 14:28 CONCLUSION: Moderate pleural effusion with parenchymal consolidation at the left lung base again noted. Abdomen/Pelvis CT 07/21/18 15:33 CONCLUSION: 1. 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 2. Large amount of stool in the rectum. 3. Body wall edema/anasarca. 4. Left greater than right pleural effusions and basilar atelectasis. 5. Atherosclerotic abdominal aorta. No aneurysm. Head CT 07/21/18 15:33 CONCLUSION: 1. No acute intracranial abnormality demonstrated. 2. 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 3. Old right frontal craniotomy with chronic meningeal scarring. 4. Chronic white matter changes. Chest X-Ray 07/22/18 06:00 CONCLUSION: 1. Persistent left basilar consolidation/effusion. 2. Interval resolution of the previously seen small right effusion. Head MRI 07/23/18 13:46 CONCLUSION: 1. No acute hemorrhage, mass or evidence of acute infarction. 2. Remote postsurgical changes status post right craniotomy with areas of encephalomalacia. There is a cystic structure along the anterior right temporal lobe which may represent an arachnoid cyst. 3. Abnormal tissue mass along the inner table of the right frontal bone which may represent a meningioma. 4. Small lacunar infarct right side of the tiana. 5. The study is degraded by motion artifact. Assessment and Plan Plan Mr. Olson is a 77-year male with CAD, CHF with reported EF of 20% , hx of hemorrhagic CVA, diabetes, status post craniectomy due to meningioma, skin cancers, Renal osteodystrophy, parathyroidectomy, cardiac cath, laser eye surgery, transplanted kidney in 1998, CABG 5, atrial fibrillation not on anticoagulation due to hemorrhagic stroke history, and dementia. Patient unable to provide meaningful information. 1. systolic chf chronic with recent decompensation - pt had diuretic torsemide increased 1 week ago - gentle ivf add kcl - his diuretic has been held - his typewriter tester, Dr. Gray is following. - Cont. bb - monitor the pleural effusions/resp status. - family recently refused drainage 2. syncope ?convulsive syncope - could be related to transient hypotension/volume depletion vs. NSVT - His telemetry shows both sustained and some longer runs of VT which would be a likely culprit. - Dr Gray and Dr. Herrera spoke to pt family at bedside on 07/23/18. no aggressive intervention. - cont rx - Pt made a DNR on 07/23/18 - On 07/24/18 pt developed consistent seizure activity. He was given his Keppra 500mg IV this morning and another dose ordered for a total of 1000mg of Keppra for this morning. Pt was also given a dose of IV Ativan which temporarily broke the seizure activity. - Discussed with the pts and daughter at bedside on 07/24, that we could consider giving another dose of IV ativan which would likely decrease his respiratory drive more as he was already having issues with some desaturations on 1L of O2 into the high 80's. The family is meeting with Hospice this morning and will make final decision about hospice at that time. They do not want to give any more Ativan at this time and would like to see how things go with the additional dose of Keppra which was started at the tie of my examination. His O2 flow is to be increased for comfort as well. We will re-evaluate the pt this morning and discuss the case and the pts status further at that time. 3. acute/ckd 3. s/p renal transplant evidence of mild hydropnephrosis of transplanted kidney... - related to severe constipation. - Cr/gfr improving. - Urology is following - Avril cath in place with decreased UOP - Bowel moving with lactulose - gentle ivf 4. recurrent uti's.. - ?related to urine retention/hydro/constipation - Urine culture with yeast sp. dc zyvoxx. - urology following. 5. delirium - probably multifactorial. - cont gentle ivf - Pt developed some left sided weakness on 07/22 but this wasn't reported to the attending physician until 07/23 - Pt was attempted to be taken for mri on 07/23 but karen called for loss of consciousness. - Dr Gray his typewriter tester and Dr. Tsang reviewed his tele and it appears pt is having more and more VT which is likely culprit in syncope episodes - Pt has been rather lethargic since this episode yesterday. - His ammonia is better after lactulose dose. 6. hx afib. - Unable to tolerate anticoagulation. had hemorragic cva in past. 7.Diabetes - ssi. hold scheduled insulin 8.cad 9.dementia 10. chronic pleural effusion. left Attending Attestation Patient examined. Assessment and plan formulated with Vida Washington PA-C. I agree with the above. left side sz activity eeg showes right frontal status epilepticus. iv ativan given multiple times and increase keppra. called Dr Sparks will load with phenobarb and vimpat. he will see. mri shows alot of stuctural changes on right frontoparietal area. old hemorrhagic cva, encephalopmalacia, old sdh but meningiomas was considered by radiology. old cva. no acute cva. PT and family want dnr. They would like to break the seizures and see if he can make any meaningful recovery. he is not eating. will increase the ivf but he has severe end stage chf and will be prone to overload. He is have more bouts of VT and more sustained. His typewriter tester is aware. Pt family had considered hospice but not ready just yet...perhaps in few days if unable to stop seizures. Progress Note: Quality VTE Deep Vein Thrombosis/Pulmonary Embolism Present on Admission: No
[2018-07-24] MEDS ORDERED: Lacosamide Inj 100 MG in Sodium Chlor 0.9% Inj 100 ML IV.SIG STA (16:00)
[2018-07-24] MEDS ORDERED: PHENobarbital Inj 130 MG/ML Vial IV.PUSH STA (16:00)
--- NOTE | 2018-07-24 16:37 | P.PNPAL ---
Reason for Visit Reason for visit: a. To assist with evaluation and management of symptoms including: Shortness of breath, altered mental status, debility b. To assist medical decision maker(s) with: better understanding of current medical conditions; weighing benefits/burdens of medical treatment options; making medical treatment decisions. Subjective Subjective/Interval History: Follow-up necessary for symptom management and family support. Patient's family met with hospice services today but have decided not to transition to comfort oriented care at this time. They would like to maximize medical treatment and they remain hopeful that patient will improve. Per nursing notes, patient experienced x2 seizures early this morning. Patient spouse witnessed seizures. Lorazepam and Keppra administered. EEG done at bedside. Lethargic, nonverbal and obtunded. Dr. Camilo and Orestes CARDOZA present in the room during time of visit. Patient spouse mentioned that due to new seizure activity, they would want patient to continue with aggressive treatment short of no code. They plan to give patient a couple of days to see if there would be any improvement and if not then they will decide whether they want to transition to comfort oriented care with hospice services. Family have been told that chances of patient improving from his current medical situation are very minimal. Patient spouse requesting that neurology be consulted to assist with managing seizures. Patient has been started on Vimpat and phenobarbital. Neurology consult placed on 07/24/18. Family open to follow-up calls or visits from [facility] services. Patient's daughter appropriately tearful during visit. . Family/Friend Interactions: See interval note. . Advance Directives Living Will: Never completed Health Care Surrogate: Never completed Durable Power of Still Operator Brandy: Never completed Health Care Surrogate Name and Number: HCP: Spouse-Whitney PickardJoatssqct-[phone] Documented care wishes:: Patient has never completed advanced directives. . Significant change in goals:: Patient spouse has decided to continue with aggressive treatment short of no code. She would want to maximize medical management of seizures and give patient a couple of days to see if he will have any improvement. If there is no significant improvement, she will decide to transition patient to comfort oriented care only through hospice services. . Objective Vital Signs: Vital Signs 07/23/18 20:00 07/24/18 00:00 07/24/18 04:00 Temperature 98.1 F 98.3 F 99.1 F Pulse Rate 87 81 92 H Respiratory Rate 17 20 19 Blood Pressure 116/64 104/57 L 125/58 L Pulse Oximetry 94 L 99 93 L 07/24/18 05:25 07/24/18 06:03 07/24/18 07:02 Temperature 97.7 F Pulse Rate 92 H 99 H 99 H Respiratory Rate 24 26 H 24 Blood Pressure 118/62 121/59 L 114/66 Pulse Oximetry 94 L 93 L 07/24/18 07:15 07/24/18 07:24 07/24/18 08:00 Temperature 97.7 F Pulse Rate 89 90 Respiratory Rate 22 26 H 16 Blood Pressure 118/56 L 119/60 124/60 Pulse Oximetry 96 94 L 94 L 07/24/18 12:00 Temperature 100.1 F H Pulse Rate 88 Respiratory Rate 17 Blood Pressure 113/57 L Pulse Oximetry 96 Intake & Output 07/23/18 07/24/18 07/24/18 18:59 06:59 18:59 Intake Total 405 / 405 205 / 205 105 / 105 Output Total 700 / 700 Balance -295 / -295 205 / 205 105 / 105 Weight 76.6 kg Intake: IV 405 / 405 205 / 205 105 / 105 Zyvox 600 mg Premix 300 ML @ 300 / 300 300 mls/hr IV.SIG Q12H [facility] Rx#: [id number] Rocephin Inj 1,000 MG In NS Inj 100 / 100 100 ML @ 200 mls/hr IV.SIG Q24H [facility] Rx#:[id number] Keppra Inj 500 MG In NS Inj 100 105 / 105 105 / 105 105 / 105 ML @ 400 mls/hr IV.SIG ONCE ONE Rx#:[id number] Oral Supplement 0 / 0 Output: Urine 700 / 700 Other: Date of Last Bowel Movement 07/22/18 Physical Exam: CONSTITUTIONAL/GENERAL: This is an elderly, frail patient in mild respiratory distress. TUBES/LINES/DRAINS: PIV, Mackenzie catheter, nasal cannula SKIN: Pale. Ecchymoses on upper extremities. No wounds seen anteriorly. Normothermic. HEAD: Atraumatic. Normocephalic. EYES: Pupils slightly reactive to light. Fundi not examined. ENT: Hearing grossly normal. Dry oral mucosa. O2 via nasal cannula to mouth NECK: Trachea midline. Supple, nontender. CARDIOVASCULAR: Irregular regular rate and rhythm. No JVD. Peripheral pulses symmetric. RESPIRATORY/CHEST: Symmetric, unlabored respirations. Diminished breath sounds. No rhonchi/wheezing. Mouth breathing. GASTROINTESTINAL: Abdomen soft, non-tender, nondistended. No guarding. Bowel sounds present. GENITOURINARY: Without palpable bladder distension. Mackenzie catheter in place. MUSCULOSKELETAL: Extremities without clubbing, cyanosis, or edema. No mottling or clubbing. LYMPHATICS: Did not assess. NEUROLOGICAL: Lethargic, unresponsive. Not following simple commands. PSYCHIATRIC: No obvious anxiety/depression. no apparent hallucinations or other psychotic thought process. . Diagnostic Tests Laboratory: Laboratory Results - last 72 hr 07/21/18 07/21/18 07/21/18 15:35 16:22 16:35 WBC RBC Hgb Hct MCV MCH MCHC RDW Plt Count MPV Neut % (Auto) Lymph % (Auto) [place] % (Auto) Eos % (Auto) Baso % (Auto) Neut # (Auto) Lymph # (Auto) [place] # (Auto) Eos # (Auto) Baso # (Auto) WBC Differential Differential Comment Puncture Site Patient Temperature O2 Saturation ABG pH ABG pCO2 ABG pO2 ABG HCO3 ABG O2 Content ABG Base Excess ABG Methemoglobin Edy Test Hemoglobin Carboxyhemoglobin O2 Delivery Device Liter Flow Critical Value Sodium Potassium Chloride Carbon Dioxide Anion Gap BUN Creatinine Estimated GFR POC Glucose Random Glucose Lactic Acid 1.8 Calcium Calcium Adj for Albumin Total Bilirubin AST ALT Alkaline Phosphatase Ammonia 66 H Total Protein Albumin Urine Color Yellow Urine Clarity Hazy H Urine pH 6.0 Ur Specific [place] 1.009 Urine Protein Negative Urine Glucose (UA) Negative Urine Ketones Negative Urine Occult Blood Negative Urine Nitrate Negative Urine Bilirubin Negative Urine Urobilinogen Less than 2 Ur Leukocyte Esterase Large H Urine WBC 68 H Urine WBC Clumps Few H Urine Bacteria Rare H Hyaline Casts 7 Urine Mucus Few H Micro UA Comment Cath-culture ind Ur Microscopic Review Not Reportable Urine Culture Comments Cath-cult indicated 07/22/18 07/22/18 07/22/18 01:06 05:17 05:20 WBC 8.5 RBC 4.64 Hgb 13.2 Hct 39.7 MCV 85.6 MCH 28.4 MCHC 33.2 RDW 18.8 H Plt Count 142 L MPV 8.5 Neut % (Auto) 73.6 H Lymph % (Auto) 8.6 L [place] % (Auto) 16.4 H Eos % (Auto) 1.0 Baso % (Auto) 0.4 Neut # (Auto) 6.2 Lymph # (Auto) 0.7 L [place] # (Auto) 1.4 H Eos # (Auto) 0.1 Baso # (Auto) 0.0 WBC Differential . Differential Comment Auto diff final Puncture Site Patient Temperature O2 Saturation ABG pH ABG pCO2 ABG pO2 ABG HCO3 ABG O2 Content ABG Base Excess ABG Methemoglobin Edy Test Hemoglobin Carboxyhemoglobin O2 Delivery Device Liter Flow Critical Value Sodium Potassium Chloride Carbon Dioxide Anion Gap BUN Creatinine Estimated GFR POC Glucose 227 H 152 H Random Glucose Lactic Acid Calcium Calcium Adj for Albumin Total Bilirubin AST ALT Alkaline Phosphatase Ammonia Total Protein Albumin Urine Color Urine Clarity Urine pH Ur Specific [place] Urine Protein Urine Glucose (UA) Urine Ketones Urine Occult Blood Urine Nitrate Urine Bilirubin Urine Urobilinogen Ur Leukocyte Esterase Urine WBC Urine WBC Clumps Urine Bacteria Hyaline Casts Urine Mucus Micro UA Comment Ur Microscopic Review Urine Culture Comments 07/22/18 07/22/18 07/22/18 05:20 05:20 11:24 WBC RBC Hgb Hct MCV MCH MCHC RDW Plt Count MPV Neut % (Auto) Lymph % (Auto) [place] % (Auto) Eos % (Auto) Baso % (Auto) Neut # (Auto) Lymph # (Auto) [place] # (Auto) Eos # (Auto) Baso # (Auto) WBC Differential Differential Comment Puncture Site Patient Temperature O2 Saturation ABG pH ABG pCO2 ABG pO2 ABG HCO3 ABG O2 Content ABG Base Excess ABG Methemoglobin Edy Test Hemoglobin Carboxyhemoglobin O2 Delivery Device Liter Flow Critical Value Sodium 138 Potassium 3.3 L D Chloride 94 L Carbon Dioxide 37.9 H Anion Gap 6 BUN 46 H Creatinine 1.74 H Estimated GFR 38 L POC Glucose 156 H Random Glucose 157 H Lactic Acid Calcium 7.1 L* Calcium Adj for Albumin 8.3 L Total Bilirubin 1.0 AST 11 L ALT 10 L Alkaline Phosphatase 127 H Ammonia 64 H Total Protein 6.2 L Albumin 2.5 L Urine Color Urine Clarity Urine pH Ur Specific [place] Urine Protein Urine Glucose (UA) Urine Ketones Urine Occult Blood Urine Nitrate Urine Bilirubin Urine Urobilinogen Ur Leukocyte Esterase Urine WBC Urine WBC Clumps Urine Bacteria Hyaline Casts Urine Mucus Micro UA Comment Ur Microscopic Review Urine Culture Comments 07/22/18 07/22/18 07/23/18 18:10 23:46 05:49 WBC RBC Hgb Hct MCV MCH MCHC RDW Plt Count MPV Neut % (Auto) Lymph % (Auto) [place] % (Auto) Eos % (Auto) Baso % (Auto) Neut # (Auto) Lymph # (Auto) [place] # (Auto) Eos # (Auto) Baso # (Auto) WBC Differential Differential Comment Puncture Site Patient Temperature O2 Saturation ABG pH ABG pCO2 ABG pO2 ABG HCO3 ABG O2 Content ABG Base Excess ABG Methemoglobin Edy Test Hemoglobin Carboxyhemoglobin O2 Delivery Device Liter Flow Critical Value Sodium Potassium Chloride Carbon Dioxide Anion Gap BUN Creatinine Estimated GFR POC Glucose 198 H 249 H 191 H Random Glucose Lactic Acid Calcium Calcium Adj for Albumin Total Bilirubin AST ALT Alkaline Phosphatase Ammonia Total Protein Albumin Urine Color Urine Clarity Urine pH Ur Specific [place] Urine Protein Urine Glucose (UA) Urine Ketones Urine Occult Blood Urine Nitrate Urine Bilirubin Urine Urobilinogen Ur Leukocyte Esterase Urine WBC Urine WBC Clumps Urine Bacteria Hyaline Casts Urine Mucus Micro UA Comment Ur Microscopic Review Urine Culture Comments 07/23/18 07/23/18 07/23/18 06:04 10:38 10:40 WBC RBC Hgb Hct MCV MCH MCHC RDW Plt Count MPV Neut % (Auto) Lymph % (Auto) [place] % (Auto) Eos % (Auto) Baso % (Auto) Neut # (Auto) Lymph # (Auto) [place] # (Auto) Eos # (Auto) Baso # (Auto) WBC Differential Differential Comment Puncture Site Left radial Patient Temperature 98.6 O2 Saturation 96 ABG pH 7.41 ABG pCO2 55 H* ABG pO2 185 H ABG HCO3 34 H ABG O2 Content 19.5 ABG Base Excess 9.1 H ABG Methemoglobin 1.1 Edy Test Present Hemoglobin 14.1 Carboxyhemoglobin 2.0 O2 Delivery Device Nasal cannula Liter Flow 6.00 Critical Value Yes Sodium 138 Potassium 3.6 Chloride 95 L Carbon Dioxide 34.4 H Anion Gap 9 BUN 47 H Creatinine 1.92 H Estimated GFR 34 L POC Glucose 176 H Random Glucose 190 H Lactic Acid Calcium 7.4 L* Calcium Adj for Albumin 8.5 Total Bilirubin AST ALT Alkaline Phosphatase Ammonia Total Protein Albumin 2.6 L Urine Color Urine Clarity Urine pH Ur Specific [place] Urine Protein Urine Glucose (UA) Urine Ketones Urine Occult Blood Urine Nitrate Urine Bilirubin Urine Urobilinogen Ur Leukocyte Esterase Urine WBC Urine WBC Clumps Urine Bacteria Hyaline Casts Urine Mucus Micro UA Comment Ur Microscopic Review Urine Culture Comments 07/23/18 07/23/18 07/23/18 11:41 12:34 18:15 WBC RBC Hgb Hct MCV MCH MCHC RDW Plt Count MPV Neut % (Auto) Lymph % (Auto) [place] % (Auto) Eos % (Auto) Baso % (Auto) Neut # (Auto) Lymph # (Auto) [place] # (Auto) Eos # (Auto) Baso # (Auto) WBC Differential Differential Comment Puncture Site Patient Temperature O2 Saturation ABG pH ABG pCO2 ABG pO2 ABG HCO3 ABG O2 Content ABG Base Excess ABG Methemoglobin Edy Test Hemoglobin Carboxyhemoglobin O2 Delivery Device Liter Flow Critical Value Sodium Potassium Chloride Carbon Dioxide Anion Gap BUN Creatinine Estimated GFR POC Glucose 182 H 166 H Random Glucose Lactic Acid Calcium Calcium Adj for Albumin Total Bilirubin AST ALT Alkaline Phosphatase Ammonia 35 H Total Protein Albumin Urine Color Urine Clarity Urine pH Ur Specific [place] Urine Protein Urine Glucose (UA) Urine Ketones Urine Occult Blood Urine Nitrate Urine Bilirubin Urine Urobilinogen Ur Leukocyte Esterase Urine WBC Urine WBC Clumps Urine Bacteria Hyaline Casts Urine Mucus Micro UA Comment Ur Microscopic Review Urine Culture Comments 07/24/18 07/24/18 07/24/18 00:36 05:35 05:51 WBC RBC Hgb Hct MCV MCH MCHC RDW Plt Count MPV Neut % (Auto) Lymph % (Auto) [place] % (Auto) Eos % (Auto) Baso % (Auto) Neut # (Auto) Lymph # (Auto) [place] # (Auto) Eos # (Auto) Baso # (Auto) WBC Differential Differential Comment Puncture Site Patient Temperature O2 Saturation ABG pH ABG pCO2 ABG pO2 ABG HCO3 ABG O2 Content ABG Base Excess ABG Methemoglobin Edy Test Hemoglobin Carboxyhemoglobin O2 Delivery Device Liter Flow Critical Value Sodium 138 Potassium 3.9 Chloride 96 L Carbon Dioxide 29.7 Anion Gap 12 BUN 53 H Creatinine 2.06 H Estimated GFR 31 L POC Glucose 204 H 174 H Random Glucose 171 H Lactic Acid Calcium 7.3 L* Calcium Adj for Albumin 8.4 L Total Bilirubin AST ALT Alkaline Phosphatase Ammonia Total Protein Albumin 2.6 L Urine Color Urine Clarity Urine pH Ur Specific [place] Urine Protein Urine Glucose (UA) Urine Ketones Urine Occult Blood Urine Nitrate Urine Bilirubin Urine Urobilinogen Ur Leukocyte Esterase Urine WBC Urine WBC Clumps Urine Bacteria Hyaline Casts Urine Mucus Micro UA Comment Ur Microscopic Review Urine Culture Comments 07/24/18 12:41 WBC RBC Hgb Hct MCV MCH MCHC RDW Plt Count MPV Neut % (Auto) Lymph % (Auto) [place] % (Auto) Eos % (Auto) Baso % (Auto) Neut # (Auto) Lymph # (Auto) [place] # (Auto) Eos # (Auto) Baso # (Auto) WBC Differential Differential Comment Puncture Site Patient Temperature O2 Saturation ABG pH ABG pCO2 ABG pO2 ABG HCO3 ABG O2 Content ABG Base Excess ABG Methemoglobin Edy Test Hemoglobin Carboxyhemoglobin O2 Delivery Device Liter Flow Critical Value Sodium Potassium Chloride Carbon Dioxide Anion Gap BUN Creatinine Estimated GFR POC Glucose 171 H Random Glucose Lactic Acid Calcium Calcium Adj for Albumin Total Bilirubin AST ALT Alkaline Phosphatase Ammonia Total Protein Albumin Urine Color Urine Clarity Urine pH Ur Specific [place] Urine Protein Urine Glucose (UA) Urine Ketones Urine Occult Blood Urine Nitrate Urine Bilirubin Urine Urobilinogen Ur Leukocyte Esterase Urine WBC Urine WBC Clumps Urine Bacteria Hyaline Casts Urine Mucus Micro UA Comment Ur Microscopic Review Urine Culture Comments Result Diagrams: 07/22/18 05:20 07/24/18 05:35 Microbiology: Microbiology 07/21/18 16:22 Urine Culture - Preliminary Catheterized Urine Alondra parapsilosis Imaging: Abdomen/Pelvis CT 07/21/18 15:33 CONCLUSION: 1. 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 2. Large amount of stool in the rectum. 3. Body wall edema/anasarca. 4. Left greater than right pleural effusions and basilar atelectasis. 5. Atherosclerotic abdominal aorta. No aneurysm. Head CT 07/21/18 15:33 CONCLUSION: 1. No acute intracranial abnormality demonstrated. 2. 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 3. Old right frontal craniotomy with chronic meningeal scarring. 4. Chronic white matter changes. . . Chest X-Ray 07/22/18 06:00 CONCLUSION: 1. Persistent left basilar consolidation/effusion. 2. Interval resolution of the previously seen small right effusion. Head MRI 07/23/18 13:46 CONCLUSION: 1. No acute hemorrhage, mass or evidence of acute infarction. 2. Remote postsurgical changes status post right craniotomy with areas of encephalomalacia. There is a cystic structure along the anterior right temporal lobe which may represent an arachnoid cyst. 3. Abnormal tissue mass along the inner table of the right frontal bone which may represent a meningioma. 4. Small lacunar infarct right side of the tiana. 5. The study is degraded by motion artifact. Assessment and Plan - Disease Oriented Problem List (1) Systolic congestive heart failure (2) Syncope (3) Chronic kidney disease (4) Recurrent urinary tract infection (5) Atrial fibrillation (6) Diabetes mellitus (7) Dementia - Symptom Scale (1) Shortness of breath 0-10 Scale: Unable to quantify Comment: History of CHF. (2) Altered mental status 0-10 Scale: Unable to quantify Comment: History of dementia, hemorrhagic CVA and meningioma. Altered mental status most likely from UTI, high ammonia level. (3) Debility Comment: Progressive. Multiple hospitalizations in the past 9 months. Pertinent Non-Medical Issues: Psychosocial: Patient is originally from [place]. He moved to [place] the last 20 years ago. April of this year ricci patient's 50th anniversary with his current Melly Olson. 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 Patient and his he has 2 adult children, a son and a daughter. Patient never served in the . Spiritual: Declined administrator of home health services. Legal: Patient never completed advanced directives. Ethical issues impacting care: None identified at this time. . Important Contacts: Spouse-Melly Olson-[phone] Daughter-Sung ThomasonBdsiq-[phone] . Prognosis: Mr. Olson is a 78-year-old male with a past medical history significant for coronary artery disease s/p CABG x5 vessels, congestive heart failure with reported ejection fraction of 20%, atrial fibrillation, chronic ischemic cardiomyopathy, hemorrhagic CVA, seizures, diabetes mellitus, craniotomy after subdural hematoma from a meningioma, skin cancer, renal osteodystrophy, kidney transplant in 1998, urinary tract infection, recurrent pleural effusions and dementia. Patient was brought to the emergency room on 07/21/18 for evaluation of altered mental status after spouse found patient slumped forward in his chair for about 30 seconds with loss of consciousness and left facial twitching. Given patient's multiple ongoing comorbidities, multiple hospitalizations and debility, patient remains at high risk for further complications, deterioration and decline. . Code Status: No Code DNR Plan: PLAN: Legal decision maker: Patient is lethargic, nonverbal. Has a history of dementia. He is . It is unknown whether patient will regain capacity to participate in medical decision making. According to [place] statutes, patient spouse Whitney Pickard would serve as his health care decision maker proxy. Goals: Goals are now aggressive short of no code. Patient`s spouse met with hospice today and have decided to maximize medical treatment for seizures. Patient spouse would like to give patient a couple of days and see if he will have any neurological or significant improvement. If not she mentions that she would decide on whether she should transition to comfort measures only through hospice services. Patient spouse has requested neurology consult. She is open to follow-up with hospice. CODE STATUS: No code DNR/DNI SYMPTOMS: * Shortness of breath: History of CHF and recurrent pleural effusions. Recent imaging is showing bilateral pleural effusions with on the left side and basilar atelectasis. He had episodes of desaturating when he was having seizure activity requiring increase of oxygen via nasal cannula for comfort. No recommendations. * Altered mental status:History of dementia, hemorrhagic CVA and meningioma. Altered mental status most likely from UTI, high ammonia level. Lactulose has been administered with slight improvement of ammonia level. ABG results on 07/23 showing high PCO2 level. MRI head 07/23/17 showing no acute abnormality. Patient had onset of seizures this morning requiring administration of lorazepam and other antiseizure medications. Patient is lethargic and remains nonverbal. Continue with neurochecks. * Debility: Progressive. Patient has had multiple hospitalizations since September 2017 and is very debilitated. Physical therapy consulted and recommending PT at rehab. Unfortunately it is highly unlikely that patient will be able to effectively participate in physical therapy due to physical deconditioning and debility. Palliative care will continue to follow the patient during hospital course as condition evolves, to assist patient/decision-maker with understanding of their medical conditions, weighing benefits/burdens of treatment options, for clarification of goals of treatment. Additionally will assist with any symptoms of palliative concern Attestation Attestation: To help prompt me to consider important information that might be impacting today's encounter and assessment, information from prior notes written by myself or my colleagues may have been "brought forward" into today's note. My signature on this note, however, is an attestation that I personally performed the exam, history, and/or decision-making noted today, and, unless otherwise indicated, the interactions with patient, family, and staff as well as the review of records all occurred today. I also attest that the listed assessment and stated plan reflect my best clinical judgment today based on the combination of historical information, prior notes, and today's exam/ interactions. When time spent is documented, it refers only to time spent today by the signer, or if indicated, combined time spent today by collaborating physician/nurse practitioner.
--- NOTE | 2018-07-24 19:21 | MG ---
cc: Trip Sparks MD ELECTROENCEPHALOGRAM NUMBER: [id number] INDICATION: Status post Ativan. History of right frontal encephalomalacia, kidney transplant. MEDICATIONS: 1. Keppra. 2. Ceftriaxone. DESCRIPTION: There is focal with not a very large field of right frontal PLED-like activity, high amplitude, sharply contoured, one every 1-2 seconds coming out of that right frontal head region. It does not spread over to the left hemisphere. It appears to be with a slight arm twitch and electroencephalographic seizure at epoch 36, which lasts about 60 seconds. Then, no other seizures are noted, but still this focal right frontal PLED. There is a skull defect in that region that is noted. IMPRESSION: Right frontal seizure focus with 1 electroencephalographic seizure. No left hemisphere abnormalities are noted. MD AYANA Cotton/eleanor , 06:55 PM , 07:02 PM
--- NOTE | 2018-07-24 19:58 | P.CONCC ---
History of Present Illness Service: Critical care medicine Consult date: 07/24/18 Requesting Physician: Doug Tsang Reason for Consult: hypotension Primary Care Provider: Luis Angel Beasley MD Chief Complaint: altered mental status History of Present Illness: This is a 78-year-old male with multiple significant medical comorbidities including an EF of 20%, prior renal transplant, who has been admitted to the hospital and being treated for ongoing seizures, subclinical status epilepticus , who on the floor today had worsening hypotension. Rapid response was called. Multiple hospice conversations have been ongoing over the last few days with the family, but at present he is full aggressive medical therapy short of intubation and CPR. The family requested aggressive measures for this new hypotension. EEG recently done this afternoon shows ongoing ictal activity. He has a urine culture with andrew, which is likely contaminant and he has not received any antifungals. The patient is unresponsive, and has been unresponsive for most of the day, per his at bedside. No information is obtainable from the patient and ROS is unobtainable. His asked about a BiPAP mask, and we discussed the significant risks of aspiration associated with BiPAP given his ongoing status epilepticus and poor mental status. She stated whatever my clinical judgement and medical opinion was most appropriate, she would be ok with. Review of Systems unobtainable due to mental condition, unobtainable due to mental status PMFSH - History History Provided By: Family Member, Significant Other, Medical Record - Medical / Surgical Hx Neg / Unobtainable Medical Problems Denied: Unable to Obtain Surgical History: Unable to Obtain - Medical History Medical History: Medical History (Last Reviewed 07/24/18 @ 20:53 by Damian Jones MD) CAD (coronary artery disease) CHF (congestive heart failure) CVA (cerebral vascular accident) Chronic kidney disease, stage III (moderate) Diabetes Hemangioma SHAUNA (renal osteodystrophy) Retinopathy Skin cancer Subdural hematoma (Resolved) - Surgical History Surgical History: Surgical History (Last Reviewed 07/24/18 @ 20:53 by Damian Jones MD) History of brain surgery (Resolved) H/O parathyroidectomy History of YAG laser capsulotomy of lens Status post laser cataract surgery of both eyes History of cardiac cath (Resolved) History of penile implant (Resolved) Kidney transplanted (Resolved) S/P CABG x 5 (Resolved) - Family History Family History: Family History (Last Reviewed 07/24/18 @ 20:53 by Damian Jones MD) Mother Alzheimer's dementia Hypertension Father Lymphoma - Social History I have reviewed the patient's Social History: Yes - Tobacco History Second Hand Smoke Exposure: No Tobacco Use In Past 30 Days: No Smoking Status: Never smoker - Alcohol History How Often Do You Have a Drink Containing Alcohol: Never - Substance Use History Substance History: No History of Abuse - Travel History History of Recent Travel: No Recent Travel in the [place] Within the Last 8 Weeks: No Recent Travel Out of the Country Within the Last 8 Weeks: No - Immunization History Tetanus Immunization: <5 Years Medications and Allergies Active Medications: Active Medications Acetaminophen (Tylenol) 650 mg PO Q4H PRN PRN Reason: Temp > 100.4 Al Hydroxide/Mg Hydroxide (Milk Of Magnesia Liq) 30 ml PO Q12H PRN PRN Reason: Mild Constipation Bisacodyl (Dulcolax Supp) 10 mg RECTAL DAILY PRN PRN Reason: SEVERE CONSITIPATION Dextrose (D50w Vial) 50 ml IV.PUSH UNSCH PRN PRN Reason: PER HYPOGLYCEMIA PROTOCOL Glucagon (Glucagon Inj) 1 mg OTHER PRN PRN PRN Reason: for Hypoglycemia Protocol Ceftriaxone Sodium 1,000 mg/ (Sodium Chloride) 100 mls @ 200 mls/hr IV.SIG Q24H KIAN Last Infusion: 07/23/18 22:46 Dose: Infused Lacosamide 100 mg/ Sodium (Chloride) 110 mls @ 110 mls/hr IV.SIG Q12H KIAN Potassium Chloride/Sodium Chloride (Ns + Kcl 20 Meq Inj) 1,000 mls @ 70 mls/hr IV.CONT .[id number] [facility] Last Admin: 07/24/18 13:30 Dose: 70 mls/hr Insulin Aspart (Novolog Insulin Correctional Sugar Inj) 0 unit SQ Q6HR KIAN; Protocol Last Admin: 07/24/18 18:45 Dose: Not Given Lorazepam (Ativan Inj) 1 mg IV.PUSH Q4H PRN PRN Reason: breakthrough seizure Last Admin: 07/24/18 13:30 Dose: 1 mg Metoprolol Succinate (Toprol Xl) 12.5 mg PO DAILY [facility] Last Admin: 07/24/18 09:01 Dose: Not Given Ondansetron HCl (Zofran Inj) 4 mg IV.PUSH Q6H PRN PRN Reason: NAUSEA OR VOMITING Last Admin: 07/22/18 15:33 Dose: 4 mg Phenobarbital Sodium (Luminal Inj) 90 mg IV.PUSH Q12H [facility] Sennosides (Senokot) 17.2 mg PO Q12H PRN PRN Reason: Moderate Constipation Sodium Chloride (Ns Flush) 2 ml IV.FLUSH BID KIAN Last Admin: 07/24/18 09:00 Dose: Not Given Sodium Chloride (Ns Flush) 2 ml IV.FLUSH PRN PRN PRN Reason: FLUSH AFTER USING IV ACCESS Allergies Allergy/AdvReac Type Severity Reaction Status Date / Time aspirin Allergy Severe Bleeding Verified 07/04/18 10:43 diclofenac Allergy Severe bleeding Verified 07/04/18 10:43 etodolac Allergy Severe bleeding Verified 07/04/18 10:43 flurbiprofen Allergy Severe bleeding Verified 07/04/18 10:43 haloperidol Allergy Severe Confusion Verified 07/04/18 10:43 ibuprofen Allergy Severe bleeding Verified 07/04/18 10:43 indomethacin Allergy Severe bleeding Verified 07/04/18 10:43 ketoprofen Allergy Severe bleeding Verified 07/04/18 10:43 ketorolac Allergy Severe bleeding Verified 07/04/18 10:43 naproxen Allergy Severe bleeding Verified 07/04/18 10:43 oxaprozin Allergy Severe bleeding Verified 07/04/18 10:43 oxcarbazepine Allergy Severe Bleeding Verified 07/04/18 10:43 Home Medications Medication Instructions Recorded Confirmed Type bethanechol chloride 25 mg PO BID 03/19/18 07/21/18 History calcitriol 0.5 mcg PO DAILY 03/19/18 07/21/18 History finasteride 5 mg PO DAILY 03/19/18 07/21/18 History insulin NPH and regular human 1 sliding scale dose SUBCUT UD 03/19/18 07/21/18 History [Novolin 70/30 U-100 Insulin] isosorbide mononitrate 30 mg PO DAILY 03/19/18 07/21/18 History levetiracetam 500 mg PO BID 03/19/18 07/21/18 History lorazepam [Ativan] 0.5 mg PO DAILY PRN 03/19/18 07/21/18 History melatonin 10 mg PO HS PRN 03/19/18 07/21/18 History metoprolol succinate [Toprol XL] 12.5 mg PO DAILY 03/19/18 07/21/18 History montelukast 10 mg PO QPM 03/19/18 07/21/18 History ondansetron HCl [Zofran] 8 mg PO TID PRN 03/19/18 07/21/18 History spironolactone 25 mg PO DAILY 03/19/18 07/21/18 History torsemide 40 mg PO BID 07/21/18 07/21/18 History Physical Exam Vital signs: Vital Signs 07/23/18 20:00 07/24/18 00:00 07/24/18 04:00 Temperature 36.7 C 36.8 C 37.3 C Pulse Rate 87 81 92 H Respiratory Rate 17 20 19 Blood Pressure 116/64 104/57 L 125/58 L Pulse Oximetry 94 L 99 93 L 07/24/18 05:25 07/24/18 06:03 07/24/18 07:02 Temperature 36.5 C Pulse Rate 92 H 99 H 99 H Respiratory Rate 24 26 H 24 Blood Pressure 118/62 121/59 L 114/66 Pulse Oximetry 94 L 93 L 07/24/18 07:15 07/24/18 07:24 07/24/18 08:00 Temperature 36.5 C Pulse Rate 89 90 Respiratory Rate 22 26 H 16 Blood Pressure 118/56 L 119/60 124/60 Pulse Oximetry 96 94 L 94 L 07/24/18 12:00 07/24/18 16:00 Temperature 37.8 C H 37.4 C Pulse Rate 88 90 Respiratory Rate 17 16 Blood Pressure 113/57 L 104/60 Pulse Oximetry 96 95 Intake & Output 07/24/18 07/24/18 07/25/18 06:59 18:59 06:59 Intake Total 205 / 205 320 / 320 Balance 205 / 205 320 / 320 Weight 76.6 kg Intake: IV / 320 / 320 Vimpat Inj 100 MG In NS Inj 100 110 / 110 ML @ 110 mls/hr IV.SIG STAT STA Rx#:[id number] Rocephin Inj 1,000 MG In NS Inj 100 / 100 100 ML @ 200 mls/hr IV.SIG Q24H KIAN Rx#:[id number] Keppra Inj 500 MG In NS Inj 100 105 / 105 210 / 210 ML @ 400 mls/hr IV.SIG ONCE ONE Rx#:[id number] Narrative: GENERAL: Frail elderly male, lying in bed, obtunded HEENT: Normocephalic. Atraumatic. Evidence of severe temporal wasting. Pupils are 2 mm, equal, round, reactive, conjugate. Mucous membranes are moist NECK: Trachea is midline. There is no JVD. CHEST: Equal chest rise. Nasal cannula oxygen. SPO2 100%. CARDIOVASCULAR: Normal rate in the 90s, regular rhythm. Appears sinus by telemetry. Hypotensive with systolic of 70 mmHg on my evaluation. ABDOMEN: Soft, nontender, nondistended. No guarding. MUSCULOSKELETAL: Pulses 2+. No peripheral edema. NEUROLOGICAL: RASS -5. No movement to painful stimuli. No cough. No gag. Pupils as above. - Urinary Catheter Management Indwelling Urethral Catheter Cath placed during this visit: yes Reason for continuing: Acute urinary retention Insertion date: 07/22/18 Insertion time: 16:25 Septic Shock Reassessment Septic shock perfusion: reassessment completed Assessment and Plan - Assessment and Plan Plan: Assessment: 78yM with multiple end-stage comorbid and active conditions, now with hypotension and status epilepticus. Hypotension may be associated with andrew UTI or could be secondary to status epilepticus. Given poor cardiac function, vasopressors will likely increase ventricular afterload and worsen cardiac strain. will use lactated ringers to help maintain intravascular volume , understanding that with poor cardiac function, these have risks of volume overload. I have explained the risks of volume overload to the and family and they agree to proceed with iv fluids. Will increase anti-epileptics with Cerebyx and keppra. Will obtain ABG, but given status epilepticus, I am uncomfortable recommending NIPPV given risk of aspiration with such a poor mental status. Overall quite critically ill with status epilepticus. Prognosis quite poor and he is life-threateningly ill. Status epilepticus - cerebyx load 1gm, followed by 100mg IV q8h - keppra 500mg iv q12h - repeat EEG in the AM - check dilantin level in the AM Hypotension - could be secondary to status epilepticus vs. andrew UTI - 1L LR bolus - LR mivf @ 125cc/hr. - hold home beta blockers Andrew UTI - fluconazole 400mg iv x 1 then 200mg q24h Acute hypoxic and hypercarbic respiratory failure - ABG now - will avoid NIPPV given risks of aspiration with poor mental status - nc - DNR code status. Admit to ICU. Overall prognosis quite poor. palliative care following. This patient remains critically ill with one or more organ systems which are or may become a threat to life. I have spent in excess of 39 minutes discontinuously in the care and management of this patient. This time is exclusive of procedures, and includes, but is not limited to, evaluation of the patient, review of the medical record, discussions with family, consultants, nursing staff, or respiratory therapy, and documentation in the medical record. Code Status: DNR
--- NOTE | 2018-07-24 19:59 | P.PNADD ---
Addendum to Inpatient Note Reason for Addendum: Additional Documentation Additional information: Received a call from nurse, Ami re: pt. his BP has dropped into SBP 60-70s. Pt remains mostly unresponsive. Family reportedly has changed mind and wants more aggressive intervention only excluding cpr, intubation. They are reportedly agreeable to pressors. Difficult to give much IVF given his low EF. [facility] was called and I spoke with Dr Joseph re; [facility] consult on pt and gave him brief hx leading up to current status. Pt reportedly being transferred to [facility]. I spoke also with Dr Tsang re: pt's condition and consult to [facility] for possible pressor admin. Overall outlook remains poor and it is unclear what quality of life would be attainable even if pt recovers from most recent setback.
--- NOTE | 2018-07-24 20:51 | MB ---
cc: Trip Sparks MD DATE: 07/24/2018 HISTORY OF PRESENT ILLNESS: A 78-year-old man with a history of kidney transplant 20 years ago, atrial fibrillation, right frontal hemorrhage from a meningioma, status post resection by Dr. Sifuentes, CAD, CHF, EF 20%, diabetes, skin cancers, parathyroidectomy, CABG x 5 dementia, who lives with his daughter and usually walks with a walker and feeds himself, but had minimal deficits on the left side from his hemorrhage in the past. He had some confusion for 3 weeks and then on 07/21/2018, he slumped forward in his chair and lost consciousness and had some left facial twitching. PAST MEDICAL HISTORY: As above. He had a history of a seizure at the onset of the hemorrhage, but not after that. He was initially on Depakote but had low platelets and so he switched to Keppra. MEDICATIONS AT HOME: 1. Isosorbide. 2. Insulin. 3. Finasteride. 4. Bethanechol. 5. Torsemide. 6. Spironolactone. 7. Zofran. 8. Montelukast. 9. Metoprolol. 10. Melatonin. 11. Ativan. 12. Keppra 500 b.i.d. CURRENT MEDICATIONS: 1. Tylenol. 2. Ceftriaxone. 3. Vimpat. I put him on 100 b.i.d. today. 4. He has had few doses of Ativan, 1 mg today. 5. Phenobarbital 90 q.12 hours, just started today. 6. He got some steroids. PHYSICAL EXAMINATION: VITAL SIGNS: 100.1, 99.4, 90, 16, 104/60 and as low as 90/51. NECK: There are no carotid bruits. HEART: Regular rate and rhythm. I do not detect a organomegaly. NEUROLOGIC: The pupils are equal. His really basically comatose at this time. There is no marked increased tone anywhere. No ankle clonus. Toes downgoing bilaterally. DTRs absent throughout. Respiratory rate is about 24. LABORATORY DATA: CBC essentially normal. UA showed 68 white cells. Creatinine is 2.06 today and had been 2 and generally has been running around there. Troponin was negative on admission. LFTs normal. Ammonia level 66. ABG, 7.41, PaCO2 of 55 yesterday and 185 is the O2. EEG shows what appears to be almost PLED-like out of the right frontal head region. It is very restricted though and does not have a very large field. MRI of the brain, nothing new, the old findings, old right arachnoid cyst of anterior temporal lobe. IMPRESSION: It looks like status epilepticus from the right frontal head region. I discussed with the family that I think encephalitis is probably unlikely. They did want renal to see the patient, so I will put in a renal consult. We will check the levels of the medications in the morning, watch the renal function, increase his IV fluids and we will recheck his blood gases as he had a very high PaCO2 yesterday in case he needs BiPAP. I do not see any facial twitching now. We will recheck his EEG in the morning to see if we have made any progress with the medications since they were added on. If the CO2 is up, we certainly could consider having him on BiPAP. MD AYANA Cotton/eleanor , 06:42 PM , 06:50 PM
[2018-07-24 20:56] LABS: ABG Base Excess 0.4 mmol/L (-2-2); ABG PCO2 58 mmHg (38-42); ABG PO2 137 mmHG (61-120)
[2018-07-24] MEDS ORDERED: Fosphenytoin Inj 1,000 MGPE in Sodium Chlor 0.9% Inj 50 ML IV.SIG ONE (21:00)
[2018-07-24] MEDS ORDERED: levETIRAcetam 1000mg/100mL Inj 100 ML IV.SIG SCH (21:00)
[2018-07-24 21:11] LABS: Free T4 (Free Thyroxine) 0.84 ng/dL (0.76-1.46); Thyroid Stimulating Hormone 5.46 uIU/mL (0.358-3.740)
[2018-07-24] MEDS: Fosphenytoin Inj 100 MGPE in Sodium Chlor 0.9% Inj 50 ML IV.SIG SCH (22:14)
[2018-07-24] MEDS ORDERED: Albumin Human 5% Inj 500 ML IV.SIG STA (23:22)
[2018-07-25] MEDS: Insulin NovoLOG Aspart Correctional Sugar Inj SQ SCH ×3 (00:03→12:50)
[2018-07-25] MEDS ORDERED: PHENobarbital Inj 130 MG/ML Vial IV.PUSH SCH (04:00)
[2018-07-25] MEDS ORDERED: Lacosamide Inj 100 MG in Sodium Chlor 0.9% Inj 100 ML IV.SIG SCH (04:00)
[2018-07-25 04:05] VITALS: TEMP 97.6
--- NOTE | 2018-07-25 05:08 | P.PNADD ---
Addendum to Inpatient Note Reason for Addendum: Additional Documentation Additional information: S: Patient had [facility] called overnight for hypotension. and daughter at bedside who provide the history. Patient is a 78-year-old man with a history of CAD, CABG x5, CHF with EF of 20%, A. fib, diabetes, kidney transplant, craniotomy who presented with altered mental status in the context of likely seizures. Upon arrival to patient's room, patient was hypotensive to 70s over 40s. Nurse had already spoken with the primary attending Dr. Ruiz who said that the patient will likely need to go to the ICU. ABG was ordered and attempted but staff was unable to get ABG. Discussed CODE STATUS with patient' s family who reported that they want aggressive intervention short of CPR, shocks, compressions, intubation. O: Vitals: Pulse in the 100s, blood pressure in the 70s-80s over 40s. Pulse ox 97- 98% on 3 L nasal cannula. General: Obtunded cachectic male going in and out of status epilepticus with shallow breathing. ENT: Dry mucous membranes Chest: Shallow respirations Cardiovascular: Tachycardic rate, irregularly irregular rhythm Respiratory: Shallow respirations but clear to auscultation bilaterally Abdomen: Soft, nontender, nondistended Extremities: No edema Neuro: Patient does not respond to sternal rub or other painful stimuli. A/P: Patient is a 78-year-old man with a history of CAD, CABG x5, CHF with EF of 20%, A. fib, diabetes, kidney transplant, craniotomy who presented with altered mental status in the context of likely seizures. Patient had [facility] called overnight for hypotension. -Transferred to medical ICU -Critical care consult -Palliative care already consulted
[2018-07-25 05:27] VITALS: O2SAT 98
[2018-07-25] MEDS: Fosphenytoin Inj 100 MGPE in Sodium Chlor 0.9% Inj 50 ML IV.SIG SCH (05:28)
[2018-07-25 07:11] LABS: Calcium 6.9 mg/dL (8.5-10.1); Phenytoin (Dilantin) 19.8 mcg/mL (10.0-20.0); Potassium 4.9 meq/L (3.5-5.1)
[2018-07-25 07:23] LABS: Albumin 2.7 g/dL (3.4-5.0); Calcium-Albumin Corrected 7.9 mg/dL (8.5-10.1)
[2018-07-25] MEDS ORDERED: SODIUM CHLOR 0.9% IV.SIG SCH ×2 (09:00→11:00)
[2018-07-25] MEDS ORDERED: LACOSAMIDE IV.SIG SCH ×2 (09:00→11:00)
--- NOTE | 2018-07-25 10:36 | P.PNNEU ---
Subjective Subjective Comments: no sz overnoc in icu comatose Active Medications: Active Medications Acetaminophen (Tylenol) 650 mg PO Q4H PRN PRN Reason: Temp > 100.4 Al Hydroxide/Mg Hydroxide (Milk Of Magnmarysol Liq) 30 ml PO Q12H PRN PRN Reason: Mild Constipation Bisacodyl (Dulcolax Supp) 10 mg RECTAL DAILY PRN PRN Reason: SEVERE CONSITIPATION Dextrose (D50w Vial) 50 ml IV.PUSH UNSCH PRN PRN Reason: PER HYPOGLYCEMIA PROTOCOL Glucagon (Glucagon Inj) 1 mg OTHER PRN PRN PRN Reason: for Hypoglycemia Protocol Ceftriaxone Sodium 1,000 mg/ (Sodium Chloride) 100 mls @ 200 mls/hr IV.SIG Q24H KIAN Last Infusion: 07/25/18 01:13 Dose: Infused Potassium Chloride/Sodium Chloride (Ns + Kcl 20 Meq Inj) 1,000 mls @ 70 mls/hr IV.CONT .[id number] KIAN Last Admin: 07/24/18 13:30 Dose: 70 mls/hr Fluconazole (Diflucan 200 Mg Premix Bag) 100 mls @ 100 mls/hr IV.SIG Q24H KIAN Levetiracetam 500 mg/ Sodium (Chloride) 105 mls @ 400 mls/hr IV.SIG Q12H KIAN Last Infusion: 07/24/18 21:18 Dose: Infused Lactated Ringer's (Lr 1000 Ml Inj) 1,000 mls @ 125 mls/hr IV.CONT .Q8H KIAN Last Admin: 07/25/18 04:46 Dose: 125 mls/hr Fosphenytoin Sodium 100 mgpe/ (Sodium Chloride) 52 mls @ 26 mls/hr IV.SIG Q8HR KIAN Lacosamide 150 mg/ Sodium (Chloride) 115 mls @ 110 mls/hr IV.SIG Q12H KIAN Insulin Aspart (Novolog Insulin Correctional Sugar Inj) 0 unit SQ Q6HR KIAN; Protocol Last Admin: 07/25/18 05:28 Dose: 3 unit Lorazepam (Ativan Inj) 1 mg IV.PUSH Q4H PRN PRN Reason: breakthrough seizure Last Admin: 07/24/18 13:30 Dose: 1 mg Ondansetron HCl (Zofran Inj) 4 mg IV.PUSH Q6H PRN PRN Reason: NAUSEA OR VOMITING Last Admin: 07/22/18 15:33 Dose: 4 mg Phenobarbital Sodium (Luminal Inj) 90 mg IV.PUSH Q12H [facility] Last Admin: 07/25/18 04:12 Dose: 90 mg Sennosides (Senokot) 17.2 mg PO Q12H PRN PRN Reason: Moderate Constipation Sodium Chloride (Ns Flush) 2 ml IV.FLUSH BID [facility] Last Admin: 07/24/18 22:41 Dose: 2 ml Sodium Chloride (Ns Flush) 2 ml IV.FLUSH PRN PRN PRN Reason: FLUSH AFTER USING IV ACCESS Allergies/Adverse Reactions: Allergies Allergy/AdvReac Type Severity Reaction Status Date / Time aspirin Allergy Severe Bleeding Verified 07/04/18 10:43 diclofenac Allergy Severe bleeding Verified 07/04/18 10:43 etodolac Allergy Severe bleeding Verified 07/04/18 10:43 flurbiprofen Allergy Severe bleeding Verified 07/04/18 10:43 haloperidol Allergy Severe Confusion Verified 07/04/18 10:43 ibuprofen Allergy Severe bleeding Verified 07/04/18 10:43 indomethacin Allergy Severe bleeding Verified 07/04/18 10:43 ketoprofen Allergy Severe bleeding Verified 07/04/18 10:43 ketorolac Allergy Severe bleeding Verified 07/04/18 10:43 naproxen Allergy Severe bleeding Verified 07/04/18 10:43 oxaprozin Allergy Severe bleeding Verified 07/04/18 10:43 oxcarbazepine Allergy Severe Bleeding Verified 07/04/18 10:43 Physical Exam Vital signs: Vital Signs 07/24/18 11:00 07/24/18 12:00 07/24/18 15:00 Temperature 100.1 F H Pulse Rate 99 H 88 99 H Respiratory Rate 17 Blood Pressure 113/57 L Pulse Oximetry 96 07/24/18 16:00 07/24/18 19:25 07/24/18 19:40 Temperature 99.4 F 98 F Pulse Rate 90 99 H 96 H Respiratory Rate 16 26 H 28 H Blood Pressure 104/60 60/48 L 84/48 L Pulse Oximetry 95 93 L 96 07/24/18 19:55 07/24/18 20:00 07/24/18 21:21 Temperature 97.6 F Pulse Rate 94 H 95 H Respiratory Rate 28 H 29 H Blood Pressure 81/45 L 78/49 L Pulse Oximetry 92 L 97 96 07/24/18 23:00 07/25/18 00:00 07/25/18 00:14 Temperature 97.7 F Pulse Rate 95 H 98 H Respiratory Rate Blood Pressure 80/43 L Pulse Oximetry 99 07/25/18 03:00 07/25/18 04:00 07/25/18 05:26 Temperature 97.6 F Pulse Rate 83 83 Respiratory Rate Blood Pressure 75/45 L Pulse Oximetry 99 98 Intake & Output 07/24/18 07/25/18 07/25/18 18:59 06:59 18:59 Intake Total 320 / 320 2689 / 2689 Output Total 350 / 350 Balance 320 / 320 2339 / 2339 Weight 74.6 kg Intake: IV 320 / 320 2689 / 2689 LR 1000 mL Inj 1,000 ML @ 125 1000 / 1000 mls/hr IV.CONT .Q8H KIAN Rx#: [id number] Diflucan 400 mg Premix Bag 200 200 / 200 ML @ 100 mls/hr IV.SIG ONCE ONE Rx#:[id number] Cerebyx Inj 100 MGPE In NS Inj 104 / 104 50 ML @ 208 mls/hr IV.SIG Q8HR KIAN Rx#:[id number] Cerebyx Inj 1,000 MGPE In NS 70 / 70 Inj 50 ML @ 280 mls/hr IV.SIG ONCE ONE Rx#:[id number] Vimpat Inj 100 MG In NS Inj 100 110 / 110 110 / 110 ML @ 110 mls/hr IV.SIG Q12H KIAN Rx#:[id number] LR 1000 mL Inj 1,000 ML @ Wide 1000 / 1000 Open IV.SIG BOLUS ONE Rx#: [id number] Rocephin Inj 1,000 MG In NS Inj 100 / 100 100 ML @ 200 mls/hr IV.SIG Q24H KIAN Rx#:[id number] Keppra Inj 500 MG In NS Inj 100 210 / 210 105 / 105 ML @ 400 mls/hr IV.SIG Q12H KAIN Rx#:[id number] Output: Urine Amount (Catheter) 350 / 350 Indwelling Urethral Catheter 350 / 350 Other: Date of Last Bowel Movement 07/24/18 07/22/18 - Urinary Catheter Management Indwelling Urethral Catheter Cath placed during this visit: yes Reason for continuing: Acute urinary retention Insertion date: 07/24/18 Insertion time: 16:25 Objective Laboratory Results - last 24 hr 07/24/18 07/24/18 07/24/18 05:35 12:41 18:43 Puncture Site Patient Temperature O2 Saturation ABG pH ABG pCO2 ABG pO2 ABG HCO3 ABG O2 Content ABG Base Excess ABG Methemoglobin Edy Test Hemoglobin Carboxyhemoglobin O2 Delivery Device Liter Flow Vent Setting Inspired O2 Critical Value Sodium Potassium Chloride Carbon Dioxide Anion Gap BUN Creatinine Estimated GFR POC Glucose 171 H 185 H Random Glucose Calcium Calcium Adj for Albumin Total Creatine Kinase Albumin Vitamin B12 681 TSH 5.460 H Free T4 0.84 Nasal Screen MRSA (PCR) Phenytoin Phenobarbital 07/24/18 07/24/18 07/24/18 18:50 20:15 20:39 Puncture Site Cancelled Right femoral Patient Temperature Cancelled 98.6 O2 Saturation Cancelled 96 ABG pH Cancelled 7.28 L* ABG pCO2 Cancelled 58 H* ABG pO2 Cancelled 137 H ABG HCO3 Cancelled 26 ABG O2 Content Cancelled 20.6 H ABG Base Excess Cancelled 0.4 ABG Methemoglobin Cancelled 1.4 Edy Test Cancelled Present Hemoglobin Cancelled 15.2 Carboxyhemoglobin Cancelled 1.3 O2 Delivery Device Cancelled Nasal cannula Liter Flow Cancelled 3.00 Vent Setting Cancelled Inspired O2 Cancelled Critical Value Cancelled Yes Sodium Potassium Chloride Carbon Dioxide Anion Gap BUN Creatinine Estimated GFR POC Glucose Random Glucose Calcium Calcium Adj for Albumin Total Creatine Kinase Albumin Vitamin B12 TSH Free T4 Nasal Screen MRSA (PCR) Not detected Phenytoin Phenobarbital 07/24/18 07/25/18 07/25/18 22:05 00:01 05:04 Puncture Site Patient Temperature O2 Saturation ABG pH ABG pCO2 ABG pO2 ABG HCO3 ABG O2 Content ABG Base Excess ABG Methemoglobin Edy Test Hemoglobin Carboxyhemoglobin O2 Delivery Device Liter Flow Vent Setting Inspired O2 Critical Value Sodium Potassium Chloride Carbon Dioxide Anion Gap BUN Creatinine Estimated GFR POC Glucose 197 H 195 H 221 H Random Glucose Calcium Calcium Adj for Albumin Total Creatine Kinase Albumin Vitamin B12 TSH Free T4 Nasal Screen MRSA (PCR) Phenytoin Phenobarbital 07/25/18 07/25/18 05:05 05:55 Puncture Site Patient Temperature O2 Saturation ABG pH ABG pCO2 ABG pO2 ABG HCO3 ABG O2 Content ABG Base Excess ABG Methemoglobin Edy Test Hemoglobin Carboxyhemoglobin O2 Delivery Device Liter Flow Vent Setting Inspired O2 Critical Value Sodium 138 Potassium 4.9 D Chloride 100 Carbon Dioxide 23.0 Anion Gap 15 BUN 69 H Creatinine 2.50 H Estimated GFR 25 L POC Glucose 205 H Random Glucose 199 H Calcium 6.9 L* Calcium Adj for Albumin 7.9 L Total Creatine Kinase 50 Albumin 2.7 L Vitamin B12 TSH Free T4 Nasal Screen MRSA (PCR) Phenytoin 19.8 Phenobarbital 3.5 L Microbiology 07/21/18 16:22 Urine Culture - Preliminary Catheterized Urine Alondra parapsilosis Review/Management - Review/Management Plan: imp pH 7.28 hypercapneic i dw no intubation eeg still r frontal active creat 2.5 bp 50/ i dw she agrees to comfort care i agree px poor
--- NOTE | 2018-07-25 11:38 | P.CONNP ---
History of Present Illness Service: Nephrology Consult date: 07/25/18 Requesting Physician: Trip Green Reason for Consult: Kidney transplant Primary Care Provider: Luis Angel Beasley MD Chief Complaint: altered mental status History of Present Illness: Patient is a 78-year-old male with history of seizures, altered mental status, comatose condition, according to the he received living related kidney transplant from the son at [facility] 19 years ago and he took immunosuppressive medication for 10 years and then he was weaned off all his immunosuppressive medications patient stated that it was a 5 antigen match kidney, he did well and kidney functions was fine until recently when his creatinine started going higher and currently at 2.5 he became hypotensive has been transferred to the intensive care unit has seizures, AMS, patient received fluid challenges and has not made much urine since he got transferred blood pressure is in 70s over 40s. Patient has cardiomyopathy EF is 20%. Review of Systems unobtainable due to mental status PMFSH - History History Provided By: Family Member, Significant Other, Medical Record - Medical / Surgical Hx Neg / Unobtainable Medical Problems Denied: Unable to Obtain - Medical History Medical History: Medical History (Last Reviewed 07/25/18 @ 11:28 by Carmela Ferreira MD) CAD (coronary artery disease) CHF (congestive heart failure) CVA (cerebral vascular accident) Chronic kidney disease, stage III (moderate) Diabetes Hemangioma SHAUNA (renal osteodystrophy) Retinopathy Skin cancer Subdural hematoma (Resolved) - Surgical History Surgical History: Surgical History (Last Reviewed 07/25/18 @ 11:28 by Carmela Ferreira MD) H/O parathyroidectomy History of YAG laser capsulotomy of lens Status post laser cataract surgery of both eyes History of brain surgery (Resolved) History of cardiac cath (Resolved) History of penile implant (Resolved) Kidney transplanted (Resolved) S/P CABG x 5 (Resolved) - Family History Family History: Family History (Last Reviewed 07/25/18 @ 11:28 by Carmela Ferreira MD) Mother Alzheimer's dementia Hypertension Father Lymphoma - Social History I have reviewed the patient's Social History: Yes - Tobacco History Second Hand Smoke Exposure: No Tobacco Use In Past 30 Days: No Smoking Status: Never smoker - Alcohol History How Often Do You Have a Drink Containing Alcohol: Never - Substance Use History Substance History: No History of Abuse - Travel History History of Recent Travel: No Recent Travel in the [place] Within the Last 8 Weeks: No Recent Travel Out of the Country Within the Last 8 Weeks: No - Immunization History Tetanus Immunization: <5 Years Medications and Allergies Active Medications: Active Medications Acetaminophen (Tylenol) 650 mg PO Q4H PRN PRN Reason: Temp > 100.4 Al Hydroxide/Mg Hydroxide (Milk Of Magnmarysol Liq) 30 ml PO Q12H PRN PRN Reason: Mild Constipation Bisacodyl (Dulcolax Supp) 10 mg RECTAL DAILY PRN PRN Reason: SEVERE CONSITIPATION Dextrose (D50w Vial) 50 ml IV.PUSH UNSCH PRN PRN Reason: PER HYPOGLYCEMIA PROTOCOL Glucagon (Glucagon Inj) 1 mg OTHER PRN PRN PRN Reason: for Hypoglycemia Protocol Ceftriaxone Sodium 1,000 mg/ (Sodium Chloride) 100 mls @ 200 mls/hr IV.SIG Q24H [facility] Last Infusion: 07/25/18 01:13 Dose: Infused Potassium Chloride/Sodium Chloride (Ns + Kcl 20 Meq Inj) 1,000 mls @ 70 mls/hr IV.CONT .[id number] KIAN Last Admin: 07/24/18 13:30 Dose: 70 mls/hr Fluconazole (Diflucan 200 Mg Premix Bag) 100 mls @ 100 mls/hr IV.SIG Q24H [facility] Levetiracetam 500 mg/ Sodium (Chloride) 105 mls @ 400 mls/hr IV.SIG Q12H [facility] Last Admin: 07/25/18 10:38 Dose: 200 mls/hr Lactated Ringer's (Lr 1000 Ml Inj) 1,000 mls @ 125 mls/hr IV.CONT .Q8H [facility] Last Admin: 07/25/18 04:46 Dose: 125 mls/hr Fosphenytoin Sodium 100 mgpe/ (Sodium Chloride) 52 mls @ 26 mls/hr IV.SIG Q8HR [facility] Lacosamide 150 mg/ Sodium (Chloride) 115 mls @ 110 mls/hr IV.SIG Q12H [facility] Insulin Aspart (Novolog Insulin Correctional Sugar Inj) 0 unit SQ Q6HR KIAN; Protocol Last Admin: 07/25/18 05:28 Dose: 3 unit Lorazepam (Ativan Inj) 1 mg IV.PUSH Q4H PRN PRN Reason: breakthrough seizure Last Admin: 07/24/18 13:30 Dose: 1 mg Ondansetron HCl (Zofran Inj) 4 mg IV.PUSH Q6H PRN PRN Reason: NAUSEA OR VOMITING Last Admin: 07/22/18 15:33 Dose: 4 mg Phenobarbital Sodium (Luminal Inj) 90 mg IV.PUSH Q12H [facility] Last Admin: 07/25/18 04:12 Dose: 90 mg Sennosides (Senokot) 17.2 mg PO Q12H PRN PRN Reason: Moderate Constipation Sodium Chloride (Ns Flush) 2 ml IV.FLUSH BID [facility] Last Admin: 07/25/18 10:00 Dose: 2 ml Sodium Chloride (Ns Flush) 2 ml IV.FLUSH PRN PRN PRN Reason: FLUSH AFTER USING IV ACCESS Allergies Allergy/AdvReac Type Severity Reaction Status Date / Time aspirin Allergy Severe Bleeding Verified 07/04/18 10:43 diclofenac Allergy Severe bleeding Verified 07/04/18 10:43 etodolac Allergy Severe bleeding Verified 07/04/18 10:43 flurbiprofen Allergy Severe bleeding Verified 07/04/18 10:43 haloperidol Allergy Severe Confusion Verified 07/04/18 10:43 ibuprofen Allergy Severe bleeding Verified 07/04/18 10:43 indomethacin Allergy Severe bleeding Verified 07/04/18 10:43 ketoprofen Allergy Severe bleeding Verified 07/04/18 10:43 ketorolac Allergy Severe bleeding Verified 07/04/18 10:43 naproxen Allergy Severe bleeding Verified 07/04/18 10:43 oxaprozin Allergy Severe bleeding Verified 07/04/18 10:43 oxcarbazepine Allergy Severe Bleeding Verified 07/04/18 10:43 Home Medications Medication Instructions Recorded Confirmed Type bethanechol chloride 25 mg PO BID 03/19/18 07/21/18 History calcitriol 0.5 mcg PO DAILY 03/19/18 07/21/18 History finasteride 5 mg PO DAILY 03/19/18 07/21/18 History insulin NPH and regular human 1 sliding scale dose SUBCUT UD 03/19/18 07/21/18 History [Novolin 70/30 U-100 Insulin] isosorbide mononitrate 30 mg PO DAILY 03/19/18 07/21/18 History levetiracetam 500 mg PO BID 03/19/18 07/21/18 History lorazepam [Ativan] 0.5 mg PO DAILY PRN 03/19/18 07/21/18 History melatonin 10 mg PO HS PRN 03/19/18 07/21/18 History metoprolol succinate [Toprol XL] 12.5 mg PO DAILY 03/19/18 07/21/18 History montelukast 10 mg PO QPM 03/19/18 07/21/18 History ondansetron HCl [Zofran] 8 mg PO TID PRN 03/19/18 07/21/18 History spironolactone 25 mg PO DAILY 03/19/18 07/21/18 History torsemide 40 mg PO BID 07/21/18 07/21/18 History Exam Vital signs: Vital Signs 07/24/18 12:00 07/24/18 15:00 07/24/18 16:00 Temperature 100.1 F H 99.4 F Pulse Rate 88 99 H 90 Respiratory Rate 17 16 Blood Pressure 113/57 L 104/60 Pulse Oximetry 96 95 07/24/18 19:25 07/24/18 19:40 07/24/18 19:55 Temperature 98 F Pulse Rate 99 H 96 H 94 H Respiratory Rate 26 H 28 H 28 H Blood Pressure 60/48 L 84/48 L 81/45 L Pulse Oximetry 93 L 96 92 L 07/24/18 20:00 07/24/18 21:21 07/24/18 23:00 Temperature 97.6 F Pulse Rate 95 H 95 H Respiratory Rate 29 H Blood Pressure 78/49 L Pulse Oximetry 97 96 07/25/18 00:00 07/25/18 00:14 07/25/18 03:00 Temperature 97.7 F Pulse Rate 98 H 83 Respiratory Rate Blood Pressure 80/43 L Pulse Oximetry 99 07/25/18 04:00 07/25/18 05:26 Temperature 97.6 F Pulse Rate 83 Respiratory Rate Blood Pressure 75/45 L Pulse Oximetry 99 98 Intake & Output 07/24/18 07/25/18 07/25/18 18:59 06:59 18:59 Intake Total 320 / 320 2689 / 2689 Output Total 350 / 350 Balance 320 / 320 2339 / 2339 Weight 74.6 kg Intake: IV 320 / 320 2689 / 2689 LR 1000 mL Inj 1,000 ML @ 125 1000 / 1000 mls/hr IV.CONT .Q8H [facility] Rx#: [id number] Diflucan 400 mg Premix Bag 200 200 / 200 ML @ 100 mls/hr IV.SIG ONCE ONE Rx#:[id number] Cerebyx Inj 100 MGPE In NS Inj 104 / 104 50 ML @ 208 mls/hr IV.SIG Q8HR [facility] Rx#:[id number] Cerebyx Inj 1,000 MGPE In NS 70 / 70 Inj 50 ML @ 280 mls/hr IV.SIG ONCE ONE Rx#:[id number] Vimpat Inj 100 MG In NS Inj 100 110 / 110 110 / 110 ML @ 110 mls/hr IV.SIG Q12H [facility] Rx#:[id number] LR 1000 mL Inj 1,000 ML @ Wide 1000 / 1000 Open IV.SIG BOLUS ONE Rx#: [id number] Rocephin Inj 1,000 MG In NS Inj 100 / 100 100 ML @ 200 mls/hr IV.SIG Q24H [facility] Rx#:[id number] Keppra Inj 500 MG In NS Inj 100 210 / 210 105 / 105 ML @ 400 mls/hr IV.SIG Q12H [facility] Rx#:[id number] Output: Urine Amount (Catheter) 350 / 350 Indwelling Urethral Catheter 350 / 350 Other: Date of Last Bowel Movement 07/24/18 07/22/18 Narrative: GENERAL: Patient is comatose SKIN: Warm and dry. HEAD: Normocephalic. EYES: No scleral icterus. No injection or drainage. NECK: Supple, trachea midline. No JVD or lymphadenopathy. CARDIOVASCULAR: Irregular no gallops, or rubs. RESPIRATORY: Breath sounds diminished at bases GASTROINTESTINAL: Abdomen soft, hypoactive bowel sounds well-healed incision on right side. EXTREMITIES: No edema NEUROLOGICAL: Comatose. Results - Lab Results 07/22/18 05:20 07/25/18 05:55 Most recent lab results ABG pH 7.28 (7.380-7.420) L* 07/24/18 20:39 ABG pCO2 58 mmHg (38-42) H* 07/24/18 20:39 ABG pO2 137 mmHG (61-120) H 07/24/18 20:39 ABG HCO3 26 mmol/L (22-26) 07/24/18 20:39 Calcium 6.9 mg/dL (8.5-10.1) L* 07/25/18 05:55 Magnesium 1.8 mg/dL (1.5-2.5) 07/21/18 14:37 Assessment and Plan - Assessment (1) Acute renal failure Code(s): N17.9 - Acute kidney failure, unspecified Status: Acute Plan: This is due to septic shock patient is in multiorgan failure wishes for withdrawal of care and comfort measures Due to prolonged debilitated state Seizure disorder Comatose Acute renal failure is worsening due to severe hypotension he was given Colloids and crystalloid lactated Ringer at 125 cc an hour Unfortunately his condition is deteriorating and wishes comfort measures only Patient has acute renal failure and ATN he has a living related kidney transplant 19 years ago not on immunosuppressive medication I will sign off (2) Septic shock Code(s): A41.9 - Sepsis, unspecified organism; R65.21 - Severe sepsis with septic shock Status: Acute Plan: Per critical care continue IV fluids (3) Hx of kidney transplant Code(s): Z94.0 - Kidney transplant status Status: Chronic (4) Atrial fibrillation Code(s): I48.91 - Unspecified atrial fibrillation Status: Acute Plan: Continue to monitor heart rate is low EF 20% (5) Altered mental status Code(s): R41.82 - Altered mental status, unspecified Status: Acute Plan: Neurology documented poor prognosis
--- NOTE | 2018-07-25 13:24 | P.PNPAL ---
Reason for Visit Reason for visit: a. To assist with evaluation and management of symptoms including: Shortness of breath, altered mental status, debility b. To assist medical decision maker(s) with: better understanding of current medical conditions; weighing benefits/burdens of medical treatment options; making medical treatment decisions. Subjective Subjective/Interval History: Follow-up necessary for symptom management and family support. [place] [facility] after he was noted to be hypotensive with SBP in the 70s over 40s. Critical care Dr. Jones consulted for evaluation and management of patient with hypotension, recommending starting patient on IV fluids (LR), started patient on Cerebyx and Keppra. Critical care physician spoke at length with patient spouse and noted that patient's prognosis is poor and patient was life threateningly ill. Patient was seen by Dr. Sparks neurology who was consulted on 07/24/18 for evaluation of patient with epilepticus, recommended EEG and per family`s request consulted nephrology. Patient is unresponsive, not in any signs of discomfort or pain. Patient appears to be imminently dying. According to patient spouse, she had a telephone discussion with Dr. Sparks's this morning and he has notified her of patient's poor prognosis. Patient`s spouse has decided to forego any further aggressive treatment, ordering bedside RN not to infuse any more medications including antiseizure medications. She only now desires comfort care only. fpga engineer had been in room earlier for a follow up visit and patient`s spouse told chief data officer that hospice is currently on hold. During palliative care visit discussed transitioning patient to hospice services for comfort oriented care and patient spouse politely declined. She states that she wants patient to remain in the hospital. Explained to her that patient can be admitted to hospice and will remain in the hospital per her wishes. Notified and patient's children that at any time if they change their mind they will can call hospice back. Case discussed with bedside RN and case management. . Family/Friend Interactions: Patient spouse, and 2 adult children daughter and son present during visit. . Advance Directives Living Will: Never completed Health Care Surrogate: Never completed Durable Power of Web Site Manager: Never completed Health Care Surrogate Name and Number: HCP: Spouse-Whitney PickardFbvgxlvov-[phone] Documented care wishes:: Patient has never completed advanced directives. . Significant change in goals:: Patient spouse has decided to forego any further aggressive treatment and transition to comfort oriented care only. Patient spouse has declined hospice services at this time. . Objective Vital Signs: Vital Signs 07/24/18 15:00 07/24/18 16:00 07/24/18 19:25 Temperature 99.4 F 98 F Pulse Rate 99 H 90 99 H Respiratory Rate 16 26 H Blood Pressure 104/60 60/48 L Pulse Oximetry 95 93 L 07/24/18 19:40 07/24/18 19:55 07/24/18 20:00 Temperature 97.6 F Pulse Rate 96 H 94 H 95 H Respiratory Rate 28 H 28 H 29 H Blood Pressure 84/48 L 81/45 L 78/49 L Pulse Oximetry 96 92 L 97 07/24/18 21:21 07/24/18 23:00 07/25/18 00:00 Temperature 97.7 F Pulse Rate 95 H 98 H Respiratory Rate Blood Pressure 80/43 L Pulse Oximetry 96 07/25/18 00:14 07/25/18 03:00 07/25/18 04:00 Temperature 97.6 F Pulse Rate 83 83 Respiratory Rate Blood Pressure 75/45 L Pulse Oximetry 99 99 07/25/18 05:26 Temperature Pulse Rate Respiratory Rate Blood Pressure Pulse Oximetry 98 Intake & Output 07/24/18 07/25/18 07/25/18 18:59 06:59 18:59 Intake Total 320 / 320 2689 / 2689 1000 / 1000 Output Total 350 / 350 Balance 320 / 320 2339 / 2339 1000 / 1000 Weight 74.6 kg Intake: IV 320 / 320 2689 / 2689 1000 / 1000 LR 1000 mL Inj 1,000 ML @ 125 1000 / 1000 1000 / 1000 mls/hr IV.CONT .Q8H KIAN Rx#: [id number] Diflucan 400 mg Premix Bag 200 200 / 200 ML @ 100 mls/hr IV.SIG ONCE ONE Rx#:[id number] Cerebyx Inj 100 MGPE In NS Inj 104 / 104 50 ML @ 208 mls/hr IV.SIG Q8HR KIAN Rx#:[id number] Cerebyx Inj 1,000 MGPE In NS 70 / 70 Inj 50 ML @ 280 mls/hr IV.SIG ONCE ONE Rx#:[id number] Vimpat Inj 100 MG In NS Inj 100 110 / 110 110 / 110 ML @ 110 mls/hr IV.SIG Q12H KIAN Rx#:[id number] LR 1000 mL Inj 1,000 ML @ Wide 1000 / 1000 Open IV.SIG BOLUS ONE Rx#: [id number] Rocephin Inj 1,000 MG In NS Inj 100 / 100 100 ML @ 200 mls/hr IV.SIG Q24H KIAN Rx#:[id number] Keppra Inj 500 MG In NS Inj 100 210 / 210 105 / 105 ML @ 400 mls/hr IV.SIG Q12H KIAN Rx#:[id number] Output: Urine Amount (Catheter) 350 / 350 Indwelling Urethral Catheter 350 / 350 Other: Date of Last Bowel Movement 07/24/18 07/22/18 Physical Exam: CONSTITUTIONAL/GENERAL: This is an elderly, frail patient in mild respiratory distress. TUBES/LINES/DRAINS: PIV, Mackenzie catheter, nasal cannula SKIN: Pale. Ecchymoses on upper extremities. No wounds seen anteriorly. Normothermic. HEAD: Atraumatic. Normocephalic. EYES: Eyes closed. Fundi not examined. ENT: Hearing grossly normal. Dry oral mucosa. O2 via nasal cannula to mouth NECK: Trachea midline. Supple, nontender. CARDIOVASCULAR: Irregular regular rate and rhythm. No JVD. Peripheral pulses symmetric. RESPIRATORY/CHEST: Symmetric, shallow respirations. Diminished breath sounds. Mouth breathing. GASTROINTESTINAL: Abdomen soft, non-tender, nondistended. No guarding. Bowel sounds present. GENITOURINARY: Without palpable bladder distension. Mackenzie catheter in place. MUSCULOSKELETAL: Extremities without clubbing, cyanosis, or edema. No mottling or clubbing. LYMPHATICS: Did not assess. NEUROLOGICAL: Patient is unresponsive. Patient appears to be imminently dying. PSYCHIATRIC: No obvious anxiety/depression. no apparent hallucinations or other psychotic thought process. . Diagnostic Tests Laboratory: Laboratory Results - last 72 hr 07/22/18 07/22/18 07/23/18 18:10 23:46 05:49 Puncture Site Patient Temperature O2 Saturation ABG pH ABG pCO2 ABG pO2 ABG HCO3 ABG O2 Content ABG Base Excess ABG Methemoglobin Edy Test Hemoglobin Carboxyhemoglobin O2 Delivery Device Liter Flow Vent Setting Inspired O2 Critical Value Sodium Potassium Chloride Carbon Dioxide Anion Gap BUN Creatinine Estimated GFR POC Glucose 198 H 249 H 191 H Random Glucose Calcium Calcium Adj for Albumin Ammonia Total Creatine Kinase Albumin Vitamin B12 TSH Free T4 Nasal Screen MRSA (PCR) Phenytoin Phenobarbital 07/23/18 07/23/18 07/23/18 06:04 10:38 10:40 Puncture Site Left radial Patient Temperature 98.6 O2 Saturation 96 ABG pH 7.41 ABG pCO2 55 H* ABG pO2 185 H ABG HCO3 34 H ABG O2 Content 19.5 ABG Base Excess 9.1 H ABG Methemoglobin 1.1 Edy Test Present Hemoglobin 14.1 Carboxyhemoglobin 2.0 O2 Delivery Device Nasal cannula Liter Flow 6.00 Vent Setting Inspired O2 Critical Value Yes Sodium 138 Potassium 3.6 Chloride 95 L Carbon Dioxide 34.4 H Anion Gap 9 BUN 47 H Creatinine 1.92 H Estimated GFR 34 L POC Glucose 176 H Random Glucose 190 H Calcium 7.4 L* Calcium Adj for Albumin 8.5 Ammonia Total Creatine Kinase Albumin 2.6 L Vitamin B12 TSH Free T4 Nasal Screen MRSA (PCR) Phenytoin Phenobarbital 07/23/18 07/23/18 07/23/18 11:41 12:34 18:15 Puncture Site Patient Temperature O2 Saturation ABG pH ABG pCO2 ABG pO2 ABG HCO3 ABG O2 Content ABG Base Excess ABG Methemoglobin Edy Test Hemoglobin Carboxyhemoglobin O2 Delivery Device Liter Flow Vent Setting Inspired O2 Critical Value Sodium Potassium Chloride Carbon Dioxide Anion Gap BUN Creatinine Estimated GFR POC Glucose 182 H 166 H Random Glucose Calcium Calcium Adj for Albumin Ammonia 35 H Total Creatine Kinase Albumin Vitamin B12 TSH Free T4 Nasal Screen MRSA (PCR) Phenytoin Phenobarbital 07/24/18 07/24/18 07/24/18 00:36 05:35 05:35 Puncture Site Patient Temperature O2 Saturation ABG pH ABG pCO2 ABG pO2 ABG HCO3 ABG O2 Content ABG Base Excess ABG Methemoglobin Edy Test Hemoglobin Carboxyhemoglobin O2 Delivery Device Liter Flow Vent Setting Inspired O2 Critical Value Sodium 138 Potassium 3.9 Chloride 96 L Carbon Dioxide 29.7 Anion Gap 12 BUN 53 H Creatinine 2.06 H Estimated GFR 31 L POC Glucose 204 H Random Glucose 171 H Calcium 7.3 L* Calcium Adj for Albumin 8.4 L Ammonia Total Creatine Kinase Albumin 2.6 L Vitamin B12 681 TSH 5.460 H Free T4 0.84 Nasal Screen MRSA (PCR) Phenytoin Phenobarbital 07/24/18 07/24/18 07/24/18 05:51 12:41 18:43 Puncture Site Patient Temperature O2 Saturation ABG pH ABG pCO2 ABG pO2 ABG HCO3 ABG O2 Content ABG Base Excess ABG Methemoglobin Edy Test Hemoglobin Carboxyhemoglobin O2 Delivery Device Liter Flow Vent Setting Inspired O2 Critical Value Sodium Potassium Chloride Carbon Dioxide Anion Gap BUN Creatinine Estimated GFR POC Glucose 174 H 171 H 185 H Random Glucose Calcium Calcium Adj for Albumin Ammonia Total Creatine Kinase Albumin Vitamin B12 TSH Free T4 Nasal Screen MRSA (PCR) Phenytoin Phenobarbital 07/24/18 07/24/18 07/24/18 18:50 20:15 20:39 Puncture Site Cancelled Right femoral Patient Temperature Cancelled 98.6 O2 Saturation Cancelled 96 ABG pH Cancelled 7.28 L* ABG pCO2 Cancelled 58 H* ABG pO2 Cancelled 137 H ABG HCO3 Cancelled 26 ABG O2 Content Cancelled 20.6 H ABG Base Excess Cancelled 0.4 ABG Methemoglobin Cancelled 1.4 Edy Test Cancelled Present Hemoglobin Cancelled 15.2 Carboxyhemoglobin Cancelled 1.3 O2 Delivery Device Cancelled Nasal cannula Liter Flow Cancelled 3.00 Vent Setting Cancelled Inspired O2 Cancelled Critical Value Cancelled Yes Sodium Potassium Chloride Carbon Dioxide Anion Gap BUN Creatinine Estimated GFR POC Glucose Random Glucose Calcium Calcium Adj for Albumin Ammonia Total Creatine Kinase Albumin Vitamin B12 TSH Free T4 Nasal Screen MRSA (PCR) Not detected Phenytoin Phenobarbital 07/24/18 07/25/18 07/25/18 22:05 00:01 05:04 Puncture Site Patient Temperature O2 Saturation ABG pH ABG pCO2 ABG pO2 ABG HCO3 ABG O2 Content ABG Base Excess ABG Methemoglobin Edy Test Hemoglobin Carboxyhemoglobin O2 Delivery Device Liter Flow Vent Setting Inspired O2 Critical Value Sodium Potassium Chloride Carbon Dioxide Anion Gap BUN Creatinine Estimated GFR POC Glucose 197 H 195 H 221 H Random Glucose Calcium Calcium Adj for Albumin Ammonia Total Creatine Kinase Albumin Vitamin B12 TSH Free T4 Nasal Screen MRSA (PCR) Phenytoin Phenobarbital 07/25/18 07/25/18 05:05 05:55 Puncture Site Patient Temperature O2 Saturation ABG pH ABG pCO2 ABG pO2 ABG HCO3 ABG O2 Content ABG Base Excess ABG Methemoglobin Edy Test Hemoglobin Carboxyhemoglobin O2 Delivery Device Liter Flow Vent Setting Inspired O2 Critical Value Sodium 138 Potassium 4.9 D Chloride 100 Carbon Dioxide 23.0 Anion Gap 15 BUN 69 H Creatinine 2.50 H Estimated GFR 25 L POC Glucose 205 H Random Glucose 199 H Calcium 6.9 L* Calcium Adj for Albumin 7.9 L Ammonia Total Creatine Kinase 50 Albumin 2.7 L Vitamin B12 TSH Free T4 Nasal Screen MRSA (PCR) Phenytoin 19.8 Phenobarbital 3.5 L Result Diagrams: 07/22/18 05:20 07/25/18 05:55 Microbiology: Microbiology 07/21/18 16:22 Urine Culture - Preliminary Catheterized Urine Alondra parapsilosis Imaging: Abdomen/Pelvis CT 07/21/18 15:33 CONCLUSION: 1. 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 2. Large amount of stool in the rectum. 3. Body wall edema/anasarca. 4. Left greater than right pleural effusions and basilar atelectasis. 5. Atherosclerotic abdominal aorta. No aneurysm. Head CT 07/21/18 15:33 CONCLUSION: 1. No acute intracranial abnormality demonstrated. 2. 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 3. Old right frontal craniotomy with chronic meningeal scarring. 4. Chronic white matter changes. . . Chest X-Ray 07/22/18 06:00 CONCLUSION: 1. Persistent left basilar consolidation/effusion. 2. Interval resolution of the previously seen small right effusion. Head MRI 07/23/18 13:46 CONCLUSION: 1. No acute hemorrhage, mass or evidence of acute infarction. 2. Remote postsurgical changes status post right craniotomy with areas of encephalomalacia. There is a cystic structure along the anterior right temporal lobe which may represent an arachnoid cyst. 3. Abnormal tissue mass along the inner table of the right frontal bone which may represent a meningioma. 4. Small lacunar infarct right side of the tiana. 5. The study is degraded by motion artifact. Assessment and Plan - Symptom Scale (1) Shortness of breath Comment: History of CHF. (2) Altered mental status 0-10 Scale: Unable to quantify Comment: History of dementia, hemorrhagic CVA and meningioma. Altered mental status most likely from UTI, high ammonia level. (3) Debility 0-10 Scale: Unable to quantify Comment: Progressive. Multiple hospitalizations in the past 9 months. Pertinent Non-Medical Issues: Psychosocial: Patient is originally from [place]. He moved to [place] the last 20 years ago. April of this year ricci patient's 50th anniversary with his current Melly Olson. 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 Patient and his he has 2 adult children, a son and a daughter. Patient never served in the . Spiritual: Declined follow up manager services. Legal: Patient never completed advanced directives. Ethical issues impacting care: None identified at this time. . Important Contacts: Spouse-Melly Olson-[phone] Daughter-Sung ThomasonIyfia-[phone] . Prognosis: Mr. Olson is a 78-year-old male with a past medical history significant for coronary artery disease s/p CABG x5 vessels, congestive heart failure with reported ejection fraction of 20%, atrial fibrillation, chronic ischemic cardiomyopathy, hemorrhagic CVA, seizures, diabetes mellitus, craniotomy after subdural hematoma from a meningioma, skin cancer, renal osteodystrophy, kidney transplant in 1998, urinary tract infection, recurrent pleural effusions and dementia. Patient was brought to the emergency room on 07/21/18 for evaluation of altered mental status after spouse found patient slumped forward in his chair for about 30 seconds with loss of consciousness and left facial twitching. Patient has been unresponsive for the past 2 days and has been actively seizing. Prognosis is very poor. Patient is imminently dying. . Code Status: No Code DNR Plan: PLAN: Legal decision maker: Patient is lethargic, nonverbal. Has a history of dementia. He is . It is unknown whether patient will regain capacity to participate in medical decision making. According to [place] statutes, patient spouse Whitney Pickard would serve as his health care decision maker proxy. Goals: After neurologic consultation and discussion with neurologist today, patient`s spouse has decided to forego any further aggressive treatment and transition to comfort oriented care only. Patient spouse has declined hospice services at this time. CODE STATUS: No code DNR/DNI SYMPTOMS: * Shortness of breath: History of CHF and recurrent pleural effusions. Recent imaging is showing bilateral pleural effusions with on the left side and basilar atelectasis. He had episodes of desaturating when he was having seizure activity requiring increase of oxygen via nasal cannula for comfort. No recommendations. * Altered mental status:History of dementia, hemorrhagic CVA and meningioma. Altered mental status most likely from UTI, high ammonia level. Lactulose has been administered with slight improvement of ammonia level. ABG results on 07/23 showing high PCO2 level. MRI head 07/23/17 showing no acute abnormality. Patient had onset of seizures this morning requiring administration of lorazepam and other antiseizure medications. Patient is unresponsive, hypotensive and appears to be imminently dying. Patient spouse has decided to transition patient's care to comfort oriented care only. * Debility: Progressive. Patient has had multiple hospitalizations since September 2017 and is very debilitated. Physical therapy consulted and recommending PT at rehab. Unfortunately it is highly unlikely that patient will be able to effectively participate in physical therapy due to physical deconditioning and debility. Palliative care will continue to follow the patient during hospital course as condition evolves, to assist patient/decision-maker with understanding of their medical conditions, weighing benefits/burdens of treatment options, for clarification of goals of treatment. Additionally will assist with any symptoms of palliative concern Attestation Attestation: To help prompt me to consider important information that might be impacting today's encounter and assessment, information from prior notes written by myself or my colleagues may have been "brought forward" into today's note. My signature on this note, however, is an attestation that I personally performed the exam, history, and/or decision-making noted today, and, unless otherwise indicated, the interactions with patient, family, and staff as well as the review of records all occurred today. I also attest that the listed assessment and stated plan reflect my best clinical judgment today based on the combination of historical information, prior notes, and today's exam/ interactions. When time spent is documented, it refers only to time spent today by the signer, or if indicated, combined time spent today by collaborating physician/nurse practitioner.
--- NOTE | 2018-07-25 13:53 | P.PNCC ---
Subjective Subjective Remarks/Hospital Course: 07/24: This is a 78-year-old male with multiple significant medical comorbidities including an EF of 20%, prior renal transplant, who has been admitted to the hospital and being treated for ongoing seizures, subclinical status epilepticus, who on the floor today had worsening hypotension. Rapid response was called. Multiple hospice conversations have been ongoing over the last few days with the family, but at present he is full aggressive medical therapy short of intubation and CPR. The family requested aggressive measures for this new hypotension. EEG recently done this afternoon shows ongoing ictal activity. He has a urine culture with alondra, which is likely contaminant and he has not received any antifungals. The patient is unresponsive, and has been unresponsive for most of the day, per his at bedside. No information is obtainable from the patient and ROS is unobtainable. His asked about a BiPAP mask, and we discussed the significant risks of aspiration associated with BiPAP given his ongoing status epilepticus and poor mental status. She stated whatever my clinical judgement and medical opinion was most appropriate, she would be ok with. 07/25: Remains encephalopathic. Borderline blood pressures. does not want aggressive care. She is requesting nurses to not administer seizure medication as well now. Objective Vital Signs / I&O: Vital Signs 07/24/18 15:00 07/24/18 16:00 07/24/18 19:25 Temperature 99.4 F 98 F Pulse Rate 99 H 90 99 H Respiratory Rate 16 26 H Blood Pressure 104/60 60/48 L Pulse Oximetry 95 93 L 07/24/18 19:40 07/24/18 19:55 07/24/18 20:00 Temperature 97.6 F Pulse Rate 96 H 94 H 95 H Respiratory Rate 28 H 28 H 29 H Blood Pressure 84/48 L 81/45 L 78/49 L Pulse Oximetry 96 92 L 97 07/24/18 21:21 07/24/18 23:00 07/25/18 00:00 Temperature 97.7 F Pulse Rate 95 H 98 H Respiratory Rate Blood Pressure 80/43 L Pulse Oximetry 96 07/25/18 00:14 07/25/18 03:00 07/25/18 04:00 Temperature 97.6 F Pulse Rate 83 83 Respiratory Rate Blood Pressure 75/45 L Pulse Oximetry 99 99 07/25/18 05:26 Temperature Pulse Rate Respiratory Rate Blood Pressure Pulse Oximetry 98 Intake & Output 07/24/18 07/25/18 07/25/18 18:59 06:59 18:59 Intake Total 320 / 320 2689 / 2689 1000 / 1000 Output Total 350 / 350 Balance 320 / 320 2339 / 2339 1000 / 1000 Weight 74.6 kg Intake: IV 320 / 320 2689 / 2689 1000 / 1000 LR 1000 mL Inj 1,000 ML @ 125 1000 / 1000 1000 / 1000 mls/hr IV.CONT .Q8H KIAN Rx#: [id number] Diflucan 400 mg Premix Bag 200 200 / 200 ML @ 100 mls/hr IV.SIG ONCE ONE Rx#:[id number] Cerebyx Inj 100 MGPE In NS Inj 104 / 104 50 ML @ 208 mls/hr IV.SIG Q8HR KIAN Rx#:[id number] Cerebyx Inj 1,000 MGPE In NS 70 / 70 Inj 50 ML @ 280 mls/hr IV.SIG ONCE ONE Rx#:[id number] Vimpat Inj 100 MG In NS Inj 100 110 / 110 110 / 110 ML @ 110 mls/hr IV.SIG Q12H KIAN Rx#:[id number] LR 1000 mL Inj 1,000 ML @ Wide 1000 / 1000 Open IV.SIG BOLUS ONE Rx#: [id number] Rocephin Inj 1,000 MG In NS Inj 100 / 100 100 ML @ 200 mls/hr IV.SIG Q24H KIAN Rx#:[id number] Keppra Inj 500 MG In NS Inj 100 210 / 210 105 / 105 ML @ 400 mls/hr IV.SIG Q12H KIAN Rx#:[id number] Output: Urine Amount (Catheter) 350 / 350 Indwelling Urethral Catheter 350 / 350 Other: Date of Last Bowel Movement 07/24/18 07/22/18 07/22/18 Result Diagrams: 07/22/18 05:20 07/25/18 05:55 Assessment and Plan - Assessment and Plan Plan: Assessment: 78yM with multiple end-stage comorbid and active conditions, now with hypotension and status epilepticus. Hypotension may be associated with alondra UTI or could be secondary to status epilepticus. Given poor cardiac function, vasopressors will likely increase ventricular afterload and worsen cardiac strain. will use lactated ringers to help maintain intravascular volume , understanding that with poor cardiac function, these have risks of volume overload. I have explained the risks of volume overload to the and family and they agree to proceed with iv fluids. Will increase anti-epileptics with Cerebyx and keppra. Will obtain ABG, but given status epilepticus, NOT recommending NIPPV given risk of aspiration with such a poor mental status. Overall quite critically ill with status epilepticus. Prognosis quite poor and he is life-threateningly ill. Status epilepticus - cerebyx load 1gm, followed by 100mg IV q8h - keppra 500mg iv q12h - Neuro F/U Hypotension - could be secondary to status epilepticus vs. alondra UTI - 1L LR bolus - LR mivf @ 125cc/hr. - hold home beta blockers Alondra UTI - fluconazole 400mg iv x 1 then 200mg q24h Acute hypoxic and hypercarbic respiratory failure - ABG now - will avoid NIPPV given risks of aspiration with poor mental status - nc - DNR code status. Admit to ICU. Overall prognosis quite poor. palliative care following. Patient is DNR status. Family does not want aggressive care. Palliative care and discussions regarding plan of care. Discussed with Dr. Camilo earlier. Will transfer back to hospitalist service as family does not want any invasive procedures or interventions. Transfer out of ICU.
[2018-07-25] MEDS ORDERED: Fosphenytoin Inj 100 MGPE in Sodium Chlor 0.9% Inj 50 ML IV.SIG SCH (14:00)
[2018-07-25 14:59] VITALS: BP 66/44; PULSE 84; RESP 27
--- NOTE | 2018-07-25 18:33 | MG ---
cc: Trip Sparks MD EEG RECORD NUMBER: [id number] Evidence of prolonged recording. He has a known right frontal seizure focus and that continues throughout this recording. Some of it may be breach rhythm, but he has got higher amplitude discharges occurring about every 3 seconds and that continues throughout the recording. He does not have a very large field, really does not go to the left hemisphere or to the posterior aspect of the right hemisphere. Photic stimulation was performed without significant posterior driving. IMPRESSION: Continued to have that right seizure focus, looks a little bit better than the day prior, but still abnormal. I do not say that was a prolonged recording. That was just a routine recording. Trip Sparks MD DJM/sv , 06:02 PM , 06:05 PM
--- NOTE | 2018-07-25 19:18 | MB ---
cc: Trip Sparks MD DATE: 07/25/2018 [id number]. Recording again shows that right frontal discharge without much field to the posterior head region on the right and no field on the left and that continues throughout this recording. No changes are noted. No prolonged seizure activity is seen. Still has had higher amplitude about 1 Hz frequency and that is consistent and then at the end of the EEG, there is no brain activity. I am not sure if the patient is still hooked up or not. There has been a lot of artifact. IMPRESSION: Still the right frontal discharge. Towards the end of recording, it actually got less frequent, although I suspect maybe the patient may have at the end of it. Trip Sparks MD DJM/sv/do , 06:14 PM , 06:19 PM
== END 2018-07-25 14:52 | disposition expired | DRG 70 ==
LOC: NEPE 14:02 → NEDA 17:53 → HCIS 07-22 01:00 → NEDA 07-22 01:22 → N07 07-22 13:12 → HIMC 07-24 20:08
PROVIDERS: ADMIT Hospitalist; ATTEND Hospitalist
CPT/HCPCS: 36600; 70450; 70551; 71010; 71045; 74176; 80048; 80053; 80184; 80185; 81001; 82040; 82140; 82550; 82607; 82805; 82948; 82962; 83605; 83615; 83735; 84439; 84443; 84484; 85025; 87086; 87106; 87641; 90761; 90774; 90784; 92610; 93005; 95819; 95953; 96361; 96374; 97162; 99285; C8952; C9238; C9254; G0195; J0696; J1100; J1450; J1815; J1953; J2020; J2060; J2405; J2560; J3480; J7030; J7120; P9045; P9612; Q2009